=== PATIENT | male | born 1970 | race African-American/Black ===

== ENCOUNTER 2017-01-06 00:02 | Emergency (ER) | payer OTHER ==
[~2017-01-06] VITALS: Ht 177.8 cm; Wt 86.2 kg
[~2017-01-06 00:02] MED LIST: AMLO10TA2 PO; ASPI325T4 PO; ATOR20TA PO; ATOR20TA58 PO; CELE200C PO; GLYB5TAB3 PO; HYDR12.58 PO; ISOS20TA2 PO; LISI1TAB5 PO; LISI1TAB7 PO; LISI30TA4 PO; MECL25TA3 PO; OLOP5DRO EACHEYE; PANT40TA3 PO; SUMA50TA3 PO; [UNRECOGNIZED DRUG - OTHER]; diabetic medication
[2017-01-06 00:44] LABS: BASO # 0.1 x10^3/uL (0.0-0.2); BASO % 1 % (0-3); EOS % 2 % (0-3); HEMATOCRIT 43.3 % (39.0-53.0); HEMOGLOBIN 14.7 g/dL (13.0-17.5); LYMPH # 2.7 x10^3/uL (1.0-4.8); LYMPH % 40 % (24-48); MEAN CORPUSCULAR HEMOGLOBIN 30 pg (25-35); MEAN CORPUSCULAR HGB CONC 34 g/dL (31-37); MEAN CORPUSCULAR VOLUME 88 fL (79-100); MONO % 11 % (0-9); NEUT % 46 % (31-73); PLATELET COUNT 232 x10^3/uL (140-400); RED BLOOD COUNT 4.94 x10^6/uL (4.30-5.70); RED CELL DISTRIBUTION WIDTH 14.1 % (11.5-14.5); WHITE BLOOD COUNT 6.9 x10^3/uL (4.0-11.0)
[2017-01-06] MEDS ORDERED: fentaNYL PF VIAL 100 MCG/2 ML VIAL IV PRN (00:45)
[2017-01-06 00:55] LABS: CALCIUM 8.9 mg/dL (8.5-10.1); CREATININE 0.9 mg/dL (0.7-1.3); GFR 110.9; POTASSIUM 3.7 mmol/L (3.5-5.1); PROTHROMBIN TIME PATIENT 12.7 SEC (11.7-14.0)
[2017-01-06 01:01] LABS: ALBUMIN 3.4 g/dL (3.4-5.0); ALBUMIN/GLOBULIN RATIO 0.9 (1.0-1.7); TOTAL BILIRUBIN 0.3 mg/dL (0.2-1.0); TOTAL PROTEIN 7.3 g/dL (6.4-8.2)
[2017-01-06 01:04] LABS: BILIRUBIN,URINE NEGATIVE (NEG); GLUCOSE,URINE 500 mg/dL (NEG); NITRITE,URINE NEGATIVE (NEG); PROTEIN,URINE NEGATIVE (NEG-TRACE); UROBILINOGEN,URINE 0.2 mg/dL (0.2 mg/dL)
[2017-01-06 01:08] LABS: BARBITURATES NEG (NEG); BENZODIAZEPINES NEG (NEG); CANNABINOIDS NEG (NEG); COCAINE NEG (NEG); METHADONE NEG (NEG); OPIATES NEG (NEG); PHENCYCLIDINE NEG (NEG)
[2017-01-06 01:11] LABS: BACTERIA,URINE 0 /HPF (0-FEW); RBC,URINE 0 /HPF (0-2); WBC,URINE 0 /HPF (0-4)
--- NOTE | 2017-01-06 01:40 | RAD ---
PROCEDURE CT head without contrast. CT cervical spine without contrast. HISTORY Headache, neck pain, syncope TECHNIQUE Exposure: One or more of the following individualized dose reduction techniques were utilized for this exam: 1. Automated exposure control. 2. Adjustment of the mA and/or kV according to patient size. 3. Use of iterative reconstruction technique. [address] imaging skullbase to vertex. Helical noncontrast CT imaging cervical spine. 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 No new infarct. No intracranial hemorrhage, mass or hydrocephalus orbits, paranasal sinuses, mastoids and bones are unremarkable. CT cervical spine: Craniocervical junction intact cervical vertebral body height and alignment no fracture of the cervical spine. Imaged lung apices and paraspinal tissues are unremarkable IMPRESSION CT Head: No acute intracranial CT abnormality. Chronic left cerebellum infarct is stable. CT cervical spine: No acute osseous injury of the cervical spine. Electronically signed by: Justice Kapoor MD (January 06, 2017 01:37:55)
--- NOTE | 2017-01-06 01:52 | ED.ADGEN ---
Past Medical History Past Medical History: Diabetes-Type II, High Cholesterol, Hypertension Past Surgical History: No Surgical History Additional Past Surgical Histo: POOR HISTORIAN Alcohol Use: None Drug Use: None Adult General Chief Complaint Chief Complaint: FLU SYMPTOM HPI HPI Patient is a 46 year old man, history of type 2 diabetes mellitus, hypertension , hyperlipidemia, who presents the emergency department with multiple complaints. Patient states that he began experiencing back pain from his upper back and his lower back radiating down into bilateral legs 4 days ago. Patient states that he had an episode of dizziness and lightheadedness that occurred 2 days ago, that caused him to fall, with a positive loss of consciousness. Patient may have had similar symptoms previously, but apparently has not had these evaluated by a physician previously. Patient also experienced cough over these last 4 days, nonproductive. Body aches. Patient states that he was not have any chest pain during the time of this episode, although he has intermittent chest pain and intermittent shortness of breath. He has not taken medication at home for the discomfort. He is also complaining of abdominal pain that is intermittent, not associated with nausea or vomiting, denies any focal weakness in this or tingling, is complaining of generalized weakness and generalized malaise. No sick contacts or exposures, no recent travel or surgery , no cough, no urinary complaints, possible subjective fevers, no chills. Patient is a limited historian, primarily Faroese speaking, translation is assisted by family at bedside at patient's request. Review of Systems Review of Systems Constitutional: Denies fever or chills. [] Eyes: Denies change in visual acuity. [] HENT: Denies nasal congestion or sore throat. [] Respiratory: Cough, no shortness of breath. Cardiovascular: Intermittent chest pain, no edema. GI: Denies nausea, vomiting, bloody stools or diarrhea. Occasional abdominal pain. : Denies dysuria. [] Musculoskeletal: Denies back pain or joint pain. [] Integument: Denies rash. [] Neurologic: Denies headache, focal weakness or sensory changes. [] Endocrine: Denies polyuria or polydipsia. [] Lymphatic: Denies swollen glands. [] Psychiatric: Denies depression or anxiety. [] Current Medications Current Medications Current Medications Medications (Trade) Dose Ordered Sig/Rick Start Time Stop Time Status Last Admin Dose Admin Fentanyl Citrate (Fentanyl 2ml Vial) 25 mcg PRN Q15MIN PRN 01/06/17 00:45 01/06/17 03:04 DC 01/06/17 00:59 25 MCG Info (Do NOT chart on this entry -- for MONITORING) 1 each PRN DAILY PRN 01/06/17 02:30 01/06/17 03:04 DC Iohexol (Omnipaque 350 Mg/ml) 90 ml 1X ONCE 01/06/17 02:30 01/06/17 02:31 DC Allergies Allergies Allergies Coded Allergies Type Severity Reaction Last Updated Verified No Known Drug Allergies 12/18/13 No Physical Exam Physical Exam Constitutional: Well developed, well nourished, no acute distress, non-toxic appearance. [] HENT: Normocephalic, atraumatic, bilateral external ears normal, oropharynx moist, no oral exudates, nose normal. [] Eyes: PERRLA, EOMI, conjunctiva normal, no discharge. [] Neck: Normal range of motion, patient complaining of tenderness to palpation throughout the entire neck extending into bilateral trapezii, supple, no stridor. [] Cardiovascular:Heart rate regular rhythm, no murmur, S1, S2, rubs or gallops. [] Lungs & Thorax: Bilateral breath sounds clear to auscultation, no wheezing, rhonchi, rales. Patient with tenderness palpation across the posterior thoracic paraspinal region, bilaterally. [] Abdomen: Bowel sounds normal, soft, no tenderness, no rebound, rigidity, no guarding, no masses, no pulsatile masses. [] Skin: Warm, dry, no erythema, no rash. [] Back: No midline tenderness, no sepsis or deformities, patient with bilateral paraspinal tenderness extending into down into the buttock bilaterally, no lesions or injuries identified, no CVA tenderness. [] Extremities: No tenderness, no cyanosis, no clubbing, ROM intact, no edema. [] Neurologic: Alert and oriented X 3, normal motor function, normal sensory function, no focal deficits noted. [] Psychologic: Affect normal, judgement normal, mood normal. [] Current Patient Data Vital Signs Vital Signs Date Time Temp Pulse Resp B/P (MAP) Pulse Ox O2 Delivery O2 Flow Rate FiO2 01/06/17 00:59 20 01/06/17 00:34 97.7 83 184/107 (132) 96 Room Air 97.7 Lab Values Laboratory Tests Test 01/06/17 00:35 01/06/17 00:54 White Blood Count 6.9 x10^3/uL (4.0-11.0) Red Blood Count 4.94 x10^6/uL (4.30-5.70) Hemoglobin 14.7 g/dL (13.0-17.5) Hematocrit 43.3 % (39.0-53.0) Mean Corpuscular Volume 88 fL (79-100) Mean Corpuscular Hemoglobin 30 pg (25-35) Mean Corpuscular Hemoglobin Concent 34 g/dL (31-37) Red Cell Distribution Width 14.1 % (11.5-14.5) Platelet Count 232 x10^3/uL (140-400) Neutrophils (%) (Auto) 46 % (31-73) Lymphocytes (%) (Auto) 40 % (24-48) Monocytes (%) (Auto) 11 % (0-9) H Eosinophils (%) (Auto) 2 % (0-3) Basophils (%) (Auto) 1 % (0-3) Neutrophils # (Auto) 3.2 x10^3uL (1.8-7.7) Lymphocytes # (Auto) 2.7 x10^3/uL (1.0-4.8) Monocytes # (Auto) 0.7 x10^3/uL (0.0-1.1) Eosinophils # (Auto) 0.1 x10^3/uL (0.0-0.7) Basophils # (Auto) 0.1 x10^3/uL (0.0-0.2) Sodium Level 139 mmol/L (136-145) Potassium Level 3.7 mmol/L (3.5-5.1) Chloride Level 102 mmol/L (98-107) Carbon Dioxide Level 29 mmol/L (21-32) Anion Gap 8 (6-14) Blood Urea Nitrogen 14 mg/dL (8-26) Creatinine 0.9 mg/dL (0.7-1.3) Estimated GFR (Cockcroft-Gault) 110.9 BUN/Creatinine Ratio 16 (6-20) Glucose Level 258 mg/dL (70-99) H Calcium Level 8.9 mg/dL (8.5-10.1) Total Bilirubin 0.3 mg/dL (0.2-1.0) Aspartate Amino Transferase (AST) 16 U/L (15-37) Alanine Aminotransferase (ALT) 20 U/L (16-63) Alkaline Phosphatase 61 U/L (46-116) Troponin I Quantitative < 0.017 ng/mL (0.000-0.055) BO-Idz-O-Type Natriuretic Peptide 55 pg/mL (0-124) Total Protein 7.3 g/dL (6.4-8.2) Albumin 3.4 g/dL (3.4-5.0) Albumin/Globulin Ratio 0.9 (1.0-1.7) L Urine Collection Type Unknown Urine Color Yellow Urine Clarity Clear Urine pH 6.0 Urine Specific [place] <=1.005 Urine Protein Negative mg/dL (NEG-TRACE) Urine Glucose (UA) 500 mg/dL (NEG) Urine Ketones (Stick) Negative mg/dL (NEG) Urine Blood Negative (NEG) Urine Nitrite Negative (NEG) Urine Bilirubin Negative (NEG) Urine Urobilinogen Dipstick 0.2 mg/dL (0.2 mg/dL) Urine Leukocyte Esterase Negative (NEG) Urine RBC 0 /HPF (0-2) Urine WBC 0 /HPF (0-4) Urine Squamous Epithelial Cells None /LPF Urine Bacteria 0 /HPF (0-FEW) Urine Opiates Screen Neg (NEG) Urine Methadone Screen Neg (NEG) Urine Barbiturates Neg (NEG) Urine Phencyclidine Screen Neg (NEG) Urine Amphetamine/Methamphetamine Neg (NEG) Urine Benzodiazepines Screen Neg (NEG) Urine Cocaine Screen Neg (NEG) Urine Cannabinoids Screen Neg (NEG) Urine Ethyl Alcohol Neg (NEG) Laboratory Tests 01/06/17 00:35 Laboratory Tests 01/06/17 00:35 EKG EKG EC: Sinus rhythm, heart rate 80 beats minute, left axis deviation, QTC of 434, SC of 224, QRS of 78, ST elevation of 1 mm noted in V2, no other elevations or depressions identified, abnormal ECG, does not meet STEMI criteria. As interpreted by me. [] Radiology/Procedures Radiology/Procedures [][facility] [address] [place], [place] [id number] IMAGING REPORT Signed PATIENT: NITA RUFF ACCOUNT: [id number] : 1970 LOCATION: ER AGE: 46 SEX: M EXAM STATUS: REG ER ORD. PHYSICIAN: ADEEL MARRERO DO REASON: Syncope/GARCIA/neck pain PROCEDURE: CT HEAD AND CERVICAL SPINE WO PROCEDURE CT head without contrast. CT cervical spine without contrast. HISTORY Headache, neck pain, syncope TECHNIQUE Exposure: One or more of the following individualized dose reduction techniques were utilized for this exam: 1. Automated exposure control. 2. Adjustment of the mA and/or kV according to patient size. 3. Use of iterative reconstruction technique. [address] imaging skullbase to vertex. Helical noncontrast CT imaging cervical spine. 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 No new infarct. No intracranial hemorrhage, mass or hydrocephalus orbits, paranasal sinuses, mastoids and bones are unremarkable. CT cervical spine: Craniocervical junction intact cervical vertebral body height and alignment no fracture of the cervical spine. Imaged lung apices and paraspinal tissues are unremarkable IMPRESSION CT Head: No acute intracranial CT abnormality. Chronic left cerebellum infarct is stable. CT cervical spine: No acute osseous injury of the cervical spine. Electronically signed by: Carlos Kapoor MD (January 06, 2017 01:37:55) DICTATED and SIGNED BY: CARLOS KAPOOR MD DATE: 01/06/17 0137 CC: LEON ALFAROP-C; ADEEL MARRERO DO ~ Course & Med Decision Making Course & Med Decision Making Pertinent Labs and Imaging studies reviewed. (See chart for details) Patient with multiple complaints, complaining of syncope, intermittent chest and abdominal pain, noted be hypertensive in the emergency department, states he is taking his medications as directed. Chest x-ray reveals possible mild widening of mediastinum, although is likely positional, the patient's complaints of pain and syncope, CT of the chest and pelvis ordered to assess great vessels or possible dissection or other abnormality. I did discuss this with patient and family at bedside. Patient at this point states that he is ready to leave. Lengthy discussion with patient and daughter at bedside regarding the risks of leaving the emergency department, and the importance of staying for follow-up, including potential morbidity or mortality. Conversation then reiterated with patient via nurse Eunice Friend the leg which line supervisor area. Patient is calm and appropriate in responses, but states that he "doesn't feel like you are doing anything", and reiterates that he wants to eat nonhospital food and, and he has young children at home that he needs to take care of. Risk of morbidity and mortality again impressed upon patient and his daughter at bedside. Patient's also spoken to on the phone by patient's daughter. After discussion, patient did complete AMA paperwork, and exited the the emergency department with his daughter, he states he does have a doctor's appointment for this morning, and he does have all medications at home, he did have his pill bottles with him in the emergency department. Dragon Disclaimer Dragon Disclaimer This electronic medical record was generated, in whole or in part, using a voice recognition dictation system. Departure Impression: Primary Impression: Syncope Disposition: 07 AGAINST MEDICAL ADVICE Admitting Physician: Jessi Tierney Condition: STABLE ADEEL MARRERO DO January 06, 2017 01:52
[2017-01-06] MEDS ORDERED: CONTRAST GIVEN MC PRN (02:30)
[2017-01-06] MEDS ORDERED: IOHEXOL 350 MG/ML 100 ML VIAL. IV ONE (02:30)
[2017-01-06 02:45] VITALS: BP 176/92
--- NOTE | 2017-01-06 08:09 | RAD ---
Indication: Chest pain and cough. Technique: Upright portable chest radiograph was obtained and compared to a study from March 15, 2015. Findings: Allowing for lung volume and portable technique, the lungs are clear. The heart is not enlarged and there is no heart failure. Bony structures are intact. Leads overlie the patient. Impression: No acute thoracic findings.
--- NOTE | 2017-01-06 14:48 | EKG ---
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
== END 2017-01-06 02:45 | disposition left against medical advice (07) ==
LOC: ER 00:02
DX: R55 Syncope and collapse (principal); R10.9 Unspecified abdominal pain; R07.9 Chest pain, unspecified; R53.1 Weakness; E78.00 Pure hypercholesterolemia, unspecified; E11.9 Type 2 diabetes mellitus without complications; I10 Essential (primary) hypertension
CPT/HCPCS: 36415; 70450; 71010; 72125; 80053; 80305; 81001; 83880; 84484; 85027; 85610; 85730; 93005; 96374; 99285; J3010; G0481

== ENCOUNTER 2017-04-16 22:53 | Emergency (ER) | payer OTHER ==
[~2017-04-16] VITALS: Ht 185.4 cm; Wt 86.2 kg
[~2017-04-16 22:53] MED LIST changes: -ASPI325T4 PO; +ASPI325T8 PO
[2017-04-16] MEDS ORDERED: MORPHINE SULFATE 4 MG/ML DISP.SYRIN. IV/SQ PRN (23:30)
[2017-04-16] MEDS ORDERED: 0.9 % SODIUM CHLORIDE 10 ML DISP.SYRIN. IV PRN (23:30)
[2017-04-16] MEDS ORDERED: ONDANSETRON PF 4 MG/2 ML VIAL. IV PRN (23:30)
--- NOTE | 2017-04-16 23:48 | PHYS DOC ---
Past Medical History Past Medical History: Diabetes-Type II, High Cholesterol, Hypertension Past Surgical History: No Surgical History Additional Past Surgical Histo: POOR HISTORIAN Alcohol Use: None Drug Use: None Adult General Chief Complaint Chief Complaint: HYPERTENSION HPI HPI Patient is a 46 year old male who presents with elevated blood pressure. He presents with relatives and friends who can interpret for him. He is from [facility] and is Persian speaking. Through the sand car worker he has noticed his blood pressure increasing yesterday. He had a headache yesterday and today. He states he has not ran out of his blood pressure medication but did not bring it with him and he does not know the name of it. He does go to clinic for care but "it takes a while to get in". He has no chest pain O down pain no vomiting no vision change. No numbness weakness of extremities. No prior records available here. Denies any prior surgeries and does not smoke tobacco. Review of Systems Review of Systems Constitutional: Denies fever or chills Eyes: Denies change in visual acuity, redness, or eye pain HENT: Denies nasal congestion or sore throat Respiratory: Denies cough or shortness of breath Cardiovascular: No chest pain GI: Denies abdominal pain, nausea, vomiting, bloody stools or diarrhea : Denies dysuria or hematuria Musculoskeletal: Denies back pain or joint pain Integument: Denies rash or skin lesions Neurologic: POS headache, Denies focal weakness or sensory changes Current Medications Current Medications Current Medications Medications (Trade) Dose Ordered Sig/Rick Start Time Stop Time Status Last Admin Dose Admin Labetalol HCl (Normodyne) 20 mg 1X ONCE 04/17/17 00:15 04/17/17 00:16 DC Morphine Sulfate 2 mg PRN Q15MIN PRN 04/16/17 23:30 04/17/17 23:29 04/17/17 00:13 2 MG Ondansetron HCl (Zofran) 4 mg PRN Q6HRS PRN 04/16/17 23:30 04/17/17 00:10 4 MG Sodium Chloride (Normal Saline Flush) 10 ml QSHIFT PRN 04/16/17 23:30 Allergies Allergies Allergies Coded Allergies Type Severity Reaction Last Updated Verified No Known Drug Allergies 12/18/13 No Physical Exam Physical Exam Constitutional: Well developed, well nourished, no acute distress, non-toxic appearance. HENT: Normocephalic, atraumatic, bilateral external ears normal, oropharynx moist, no oral exudates, nose normal. Eyes: PERRLA, EOMI, conjunctiva normal, no discharge. Neck: Normal range of motion, no tenderness, supple, no stridor. Cardiovascular:Heart rate regular rhythm, no murmur Lungs & Thorax: Bilateral breath sounds clear to auscultation Abdomen: Bowel sounds normal, soft, no tenderness, no masses, no pulsatile masses. Skin: Warm, dry, no erythema, no rash. Back: No tenderness, no CVA tenderness. Extremities: No tenderness, no cyanosis, no clubbing, ROM intact, no edema. Neurologic: Alert and oriented X 3, normal motor function, normal sensory function, no focal deficits noted. Current Patient Data Vital Signs Vital Signs Date Time Temp Pulse Resp B/P (MAP) Pulse Ox O2 Delivery O2 Flow Rate FiO2 04/17/17 00:13 28 94 Room Air 04/17/17 00:05 86 158/95 04/16/17 23:29 98.7 98.7 Lab Values Laboratory Tests Test 04/16/17 23:52 White Blood Count 5.9 x10^3/uL (4.0-11.0) Red Blood Count 4.77 x10^6/uL (4.30-5.70) Hemoglobin 14.2 g/dL (13.0-17.5) Hematocrit 42.6 % (39.0-53.0) Mean Corpuscular Volume 90 fL (79-100) Mean Corpuscular Hemoglobin 30 pg (25-35) Mean Corpuscular Hemoglobin Concent 33 g/dL (31-37) Red Cell Distribution Width 14.6 % (11.5-14.5) H Platelet Count 194 x10^3/uL (140-400) Neutrophils (%) (Auto) 44 % (31-73) Lymphocytes (%) (Auto) 40 % (24-48) Monocytes (%) (Auto) 12 % (0-9) H Eosinophils (%) (Auto) 3 % (0-3) Basophils (%) (Auto) 1 % (0-3) Neutrophils # (Auto) 2.6 x10^3uL (1.8-7.7) Lymphocytes # (Auto) 2.4 x10^3/uL (1.0-4.8) Monocytes # (Auto) 0.7 x10^3/uL (0.0-1.1) Eosinophils # (Auto) 0.2 x10^3/uL (0.0-0.7) Basophils # (Auto) 0.1 x10^3/uL (0.0-0.2) Sodium Level 138 mmol/L (136-145) Potassium Level 3.6 mmol/L (3.5-5.1) Chloride Level 100 mmol/L (98-107) Carbon Dioxide Level 30 mmol/L (21-32) Anion Gap 8 (6-14) Blood Urea Nitrogen 9 mg/dL (8-26) Creatinine 0.9 mg/dL (0.7-1.3) Estimated GFR (Cockcroft-Gault) 110.9 Glucose Level 353 mg/dL (70-99) H Calcium Level 8.7 mg/dL (8.5-10.1) Total Bilirubin 0.2 mg/dL (0.2-1.0) Direct Bilirubin 0.1 mg/dL (0.0-0.2) Aspartate Amino Transferase (AST) 16 U/L (15-37) Alanine Aminotransferase (ALT) 20 U/L (16-63) Alkaline Phosphatase 65 U/L (46-116) Creatine Kinase 171 U/L (39-308) Creatine Kinase MB (Mass) 0.7 ng/mL (0.0-3.6) Creatine Kinase MB Relative Index 0.4 % (0-4) Troponin I Quantitative < 0.017 ng/mL (0.000-0.055) OC-Sir-B-Type Natriuretic Peptide 167 pg/mL (0-124) H Total Protein 6.7 g/dL (6.4-8.2) Albumin 3.2 g/dL (3.4-5.0) L Laboratory Tests 04/16/17 23:52 Laboratory Tests 04/16/17 23:52 EKG EKG EKG interpreted by myself at 235 2 PM shows normal sinus rhythm, rate of 82, PACs noted, left hi axis, nonspecific ST changes, no ST elevation. Radiology/Procedures Radiology/Procedures CXR interpreted by myself at 2345 PM: normal cardiac silhouette; normal lung nicole. No acute infiltrate [facility] [address] [place] [address] IMAGING REPORT Signed PATIENT: NITA RUFF ACCOUNT: [id number] : 1970 LOCATION: ER AGE: 46 SEX: M EXAM STATUS: REG ER ORD. PHYSICIAN: JOSE L BLEDSOE MD REASON: elev BP w stanton PROCEDURE: CT HEAD WO CONTRAST PQRS Compliance Statement: One or more of the following individualized dose reduction techniques were utilized for this examination: 1. Automated exposure control 2. Adjustment of the mA and/or kV according to patient size 3. Use of iterative reconstruction technique CT HEAD WITHOUT CONTRAST History: HTN, headache. Comparison: CT head without contrast, January 06, 2017. MR brain with and without contrast January 12, 2015. Procedure: Axial images are obtained of the head from the skull base through the vertex without IV contrast. Findings: The ventricles and sulci are normal for the patient's age. No mass-effect, midline shift, hemorrhage, extra-axial fluid collection, or obvious acute infarction is identified. Basilar cisterns are patent. There is stable old infarct of the left superior cerebellum. Bone windows demonstrate no acute calvarial abnormality. Skull vertex incompletely imaged. The visualized paranasal sinuses are clear. Mastoid air cells are well aerated. IMPRESSION: No acute intracranial abnormality. Electronically signed by: Jef Anderson MD (04/16/2017 11:49 PM) [facility] DICTATED and SIGNED BY: JEF ANDERSON MD DATE: 04/16/17 1201 CC: JOSE L BLEDSOE MD; LEON ALFARO [facility] ~ Course & Med Decision Making Course & Med Decision Making Evaluated patient. No evidence acute neurologic compromise. blood pressure came down here without intervention. He received IV Morphine for the headache here. At 0030 AM: Laboratory data is unremarkable. CT head is negative. He shows no evidence of acute cardiac or neurologic compromise. No evidence of end organ damage. He needs to continue his blood pressure medication as prescribed. I have spoken with the patient and/or caregivers. I have explained the patient' s condition, diagnosis and treatment plan based on the information available to me at this time. I have answered the patient's and/or caregiver's questions and addressed any concerns. The patient and/or caregivers have as good an understanding of the patient's diagnosis, condition and treatment plan as can be expected at this point. The patient's condition is stable and appropriate for discharge from the emergency department. The patient will pursue further outpatient evaluation with the primary care physician or other designated or consulting physician as outlined in the discharge instructions. The patient and/or caregivers are agreeable to this plan of care and follow-up instructions have been explained in detail. The patient and/or caregivers have received these instructions in written format and have expressed an understanding of the discharge instructions. The patient and/or caregivers are aware that any significant change in condition or worsening of symptoms should prompt an immediate return to this or the closest emergency department or a call to 911. Scout Disclaimer Dragon Disclaimer This electronic medical record was generated, in whole or in part, using a voice recognition dictation system. Departure Departure Impression: Primary Impression: Accelerated hypertension Additional Impression: Headache Disposition: 01 HOME, SELF-CARE Condition: STABLE Referrals: LEON ALFARO-C (PCP) Patient Instructions: General Headache Without Cause, Managing Your High Blood Pressure Additional Instructions: Call your doctor's office in the morning to have your medication reviewed for your blood pressure. Problem Qualifiers Additional Impression: Headache Headache type: unspecified Headache chronicity pattern: acute headache Intractability: not intractable Qualified Codes: R51 - Headache JOSE L BLEDSOE MD Apr 16, 2017 23:48
--- NOTE | 2017-04-16 23:52 | RAD ---
RS Compliance Statement: One or more of the following individualized dose reduction techniques were utilized for this examination: 1. Automated exposure control 2. Adjustment of the mA and/or kV according to patient size 3. Use of iterative reconstruction technique CT HEAD WITHOUT CONTRAST History: HTN, headache. Comparison: CT head without contrast, January 06, 2017. MR brain with and without contrast January 12, 2015. Procedure: Axial images are obtained of the head from the skull base through the vertex without IV contrast. Findings: The ventricles and sulci are normal for the patient's age. No mass-effect, midline shift, hemorrhage, extra-axial fluid collection, or obvious acute infarction is identified. Basilar cisterns are patent. There is stable old infarct of the left superior cerebellum. Bone windows demonstrate no acute calvarial abnormality. Skull vertex incompletely imaged. The visualized paranasal sinuses are clear. Mastoid air cells are well aerated. IMPRESSION: No acute intracranial abnormality. Electronically signed by: Jef Anderson MD (04/16/2017 11:49 PM) [facility]
[2017-04-17 00:02] LABS: BASO # 0.1 x10^3/uL (0.0-0.2); BASO % 1 % (0-3); EOS % 3 % (0-3); HEMATOCRIT 42.6 % (39.0-53.0); HEMOGLOBIN 14.2 g/dL (13.0-17.5); LYMPH # 2.4 x10^3/uL (1.0-4.8); LYMPH % 40 % (24-48); MEAN CORPUSCULAR HEMOGLOBIN 30 pg (25-35); MEAN CORPUSCULAR HGB CONC 33 g/dL (31-37); MEAN CORPUSCULAR VOLUME 90 fL (79-100); MONO % 12 % (0-9); NEUT % 44 % (31-73); PLATELET COUNT 194 x10^3/uL (140-400); RED BLOOD COUNT 4.77 x10^6/uL (4.30-5.70); RED CELL DISTRIBUTION WIDTH 14.6 % (11.5-14.5); WHITE BLOOD COUNT 5.9 x10^3/uL (4.0-11.0)
[2017-04-17 00:12] LABS: CALCIUM 8.7 mg/dL (8.5-10.1); CREATININE 0.9 mg/dL (0.7-1.3); GFR 110.9; POTASSIUM 3.6 mmol/L (3.5-5.1)
[2017-04-17] MEDS ORDERED: LABETALOL 20 MG/4 ML DISP.SYRIN. IVP ONE (00:15)
[2017-04-17 00:18] LABS: ALBUMIN 3.2 g/dL (3.4-5.0); DIRECT BILIRUBIN 0.1 mg/dL (0.0-0.2); TOTAL BILIRUBIN 0.2 mg/dL (0.2-1.0); TOTAL PROTEIN 6.7 g/dL (6.4-8.2)
[2017-04-17 00:26] LABS: CKMB MASS 0.7 ng/mL (0.0-3.6)
[2017-04-17 01:29] VITALS: BP 137/89
[2017-04-17] MEDS ORDERED: ACETAMINOPHEN 500 MG TABLET PO ONE (02:15)
--- NOTE | 2017-04-17 06:05 | EKG ---
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
--- NOTE | 2017-04-17 07:27 | RAD ---
Exam performed: One view chest. Indication: Elevated blood pressure Date of Service: 04/17/2017 1:25 AM Comparison: New chest from 01/06/17. Single AP upright portable view chest findings: Cardiomediastinal silhouette is within upper limits of normal, however stable. Ectatic tortuous aorta with prominent aortic knob. No acute infiltrates, effusion or pneumothorax is detected. The bony structures are normal. Impression: No acute cardiopulmonary process is detected.
== END 2017-04-17 02:22 | disposition home or self-care (01) ==
LOC: ER 22:53
DX: I10 Essential (primary) hypertension (principal); R51 Headache; E11.9 Type 2 diabetes mellitus without complications; E78.00 Pure hypercholesterolemia, unspecified
CPT/HCPCS: 36415; 70450; 71010; 80048; 80076; 82550; 82553; 83880; 84484; 85025; 93005; 96374; 96375; 99285; J2270; J2405

== ENCOUNTER 2018-01-27 22:36 | Emergency (ER) | payer SELFPAY, OTHER ==
[2018-01-27 23:30] LABS: ADD MAN DIFF? NO
[2018-01-27 23:32] LABS: BASO # 0.1 x10^3/uL (0.0-0.2); BASO % 1 % (0-3); EOS # 0.1 x10^3/uL (0.0-0.7); EOS % 2 % (0-3); HEMATOCRIT 45.3 % (39.0-53.0); HEMOGLOBIN 15.5 g/dL (13.0-17.5); LYMPH # 2.6 x10^3/uL (1.0-4.8); LYMPH % 38 % (24-48); MEAN CORPUSCULAR HEMOGLOBIN 30 pg (25-35); MEAN CORPUSCULAR HGB CONC 34 g/dL (31-37); MEAN CORPUSCULAR VOLUME 88 fL (79-100); MONO # 0.8 x10^3/uL (0.0-1.1); MONO % 12 % (0-9); NEUT # 3.2 x10^3uL (1.8-7.7); NEUT % 47 % (31-73); PLATELET COUNT 277 x10^3/uL (140-400); RED BLOOD COUNT 5.14 x10^6/uL (4.30-5.70); RED CELL DISTRIBUTION WIDTH 14.3 % (11.5-14.5); WHITE BLOOD COUNT 6.9 x10^3/uL (4.0-11.0)
[2018-01-27 23:40] LABS: ANION GAP 4 (6-14); BLOOD UREA NITROGEN 11 mg/dL (8-26); CALCIUM 9.2 mg/dL (8.5-10.1); CARBON DIOXIDE 33 mmol/L (21-32); CHLORIDE 98 mmol/L (98-107); GFR 97.8; GLUCOSE 311 mg/dL (70-99); POTASSIUM 3.5 mmol/L (3.5-5.1); SODIUM 135 mmol/L (136-145)
[2018-01-27] MEDS: diphenhydrAMINE 50 MG/ML VIAL IVP (23:41)
[2018-01-27] MEDS: IV NORMAL SALINE 1000ML BAG 1,000 ML IV (23:41)
[2018-01-27] MEDS: PROCHLORPERAZINE 10 MG/2 ML VIAL. IV (23:41)
[2018-01-27] MEDS: KETOROLAC 30 MG/ML INJ. IV (23:42)
[2018-01-27 23:49] LABS: TROPONINI < 0.017 ng/mL (0.000-0.055)
[2018-01-28] MEDS: HYDROcodone/APAP 5/325MG 1 TAB TABLET PO (00:52)
== END 2018-01-28 01:38 | disposition home or self-care (01) ==
LOC: ER 01-28 01:38
DX: G43.909 Migraine, unspecified, not intractable, without status migrainosus (principal); E11.9 Type 2 diabetes mellitus without complications; I10 Essential (primary) hypertension; E78.00 Pure hypercholesterolemia, unspecified; E78.5 Hyperlipidemia, unspecified
CPT/HCPCS: 36415; 70450; 80048; 84484; 85025; 93005; 96361; 96374; 96375; 99285-25; J0780; J1200; J1885; J7030

== ENCOUNTER 2018-07-30 14:10 | Emergency (ER) | payer OTHER ==
[~2018-07-30] VITALS: Ht 152.4 cm; Wt 95.7 kg
[~2018-07-30 14:10] MED LIST changes: -AMLO10TA2 PO; +AMLO10TA6 PO
[2018-07-30] MEDS: IV NORMAL SALINE 1000ML BAG 1,000 ML IV ONE (15:48)
[2018-07-30] MEDS: ORPHENADRINE CITRATE 60 MG/2 ML VIAL. IV ONE (15:49)
[2018-07-30] MEDS: PROCHLORPERAZINE 10 MG/2 ML VIAL. IV ONE (15:51)
[2018-07-30] MEDS: KETOROLAC 15 MG/ML VIAL. IV ONE (15:52)
--- NOTE | 2018-07-30 15:56 | RAD ---
CT HEAD INDICATION: Headache, hypertension COMPARISON: 01/27/2018 Exposure: One or more of the following individualized dose reduction techniques were utilized for this examination: 1. Automated exposure control 2. Adjustment of the mA and/or kV according to patient size 3. Use of iterative reconstruction technique TECHNIQUE: 5 mm contiguous axial images were obtained from the skull base to the vertex in both bone and soft tissue algorithm. FINDINGS: Mild bilateral periventricular white matter hypodensities likely chronic small vessel ischemic disease. No evidence of acute intracranial hemorrhage. No extra-axial fluid collections. No mass effect or midline shift. Ventricular size is appropriate. Basal cisterns are patent. No fractures identified.Wolfe-white differentiation is preserved.Globes and orbits are within normal limits. Paranasal sinuses and mastoid air cells are clear. IMPRESSION: No acute intracranial findings. Electronically signed by: Mark Spencer MD (07/30/2018 3:52 PM) [place] [id number]
[2018-07-30 16:14] VITALS: BP 173/88
--- NOTE | 2018-07-30 16:19 | PHYS DOC ---
Past Medical History Past Medical History: Diabetes-Type II, High Cholesterol, Hypertension Past Surgical History: No Surgical History Additional Past Surgical Histo: POOR HISTORIAN Alcohol Use: None Drug Use: None Adult General Chief Complaint Chief Complaint: HEADACHE HPI HPI Patient is a 47 year old Somalian male who presents to the ER with complaints of a headache with bilateral eye pain for the last 2 days that has increased in severity over time. PT denies any recent injury, fever, numbness, tingling, weakness, nausea, vomiting, or diarrhea. States that he has a history of migraine headaches and that he tried taking his medication today with no relief of his symptoms. Pt also reports a hx of HTN, states he has been taking his medications as prescribed. He denies any vision changes, floaters, or decrease in vision. He reports that the light is bothering his eyes. Pt speaking Surinamese with son at bedside who translates for patient. Staff Physician Addendum: I was working in the ER during the course of this patient's visit. I was available for consultation as needed, but I was not directly involved in the care of this patient. Review of Systems Review of Systems Constitutional: Denies fever or chills [] Eyes: See HPI GI: Denies nausea, vomiting, or diarrhea [] Integument: denies skin rash or lesions Neurologic: Denies focal weakness or sensory changes, see HPI Complete systems were reviewed and found to be within normal limits, except as documented in this note. Current Medications Current Medications Current Medications Medications (Trade) Dose Ordered Sig/Rick Start Time Stop Time Status Last Admin Dose Admin Ketorolac Tromethamine (Toradol 15mg Vial) 15 mg 1X ONCE 07/30/18 15:15 07/30/18 15:17 DC 07/30/18 15:52 15 MG Orphenadrine Citrate (Norflex) 60 mg 1X ONCE 07/30/18 15:15 07/30/18 15:17 DC 07/30/18 15:49 60 MG Prochlorperazine Edisylate (Compazine) 10 mg 1X ONCE 07/30/18 15:15 07/30/18 15:17 DC 07/30/18 15:51 10 MG Sodium Chloride 1,000 ml @ 1,000 mls/hr 1X ONCE 07/30/18 15:15 07/30/18 16:14 DC 07/30/18 15:48 1,000 MLS/HR Allergies Allergies Allergies Coded Allergies Type Severity Reaction Last Updated Verified No Known Drug Allergies 12/18/13 No Physical Exam Physical Exam Constitutional: Well developed, well nourished, no acute distress, non-toxic appearance. [] HENT: Normocephalic, atraumatic, bilateral external ears normal, oropharynx moist, no oral exudates, nose normal. [] Eyes: PERRLA, conjunctiva normal, no discharge. [] Neck: Normal range of motion, no tenderness, supple, no stridor. [] Cardiovascular:Heart rate regular rhythm, murmur present in LUSB no thrill Lungs & Thorax: Bilateral breath sounds clear to auscultation [] Skin: Warm, dry, no erythema, no rash. [] Extremities: No tenderness, no cyanosis, no clubbing, ROM intact, no edema, no weakness of extremities x4. [] Neurologic: Alert and oriented X 3, normal motor function, normal sensory function, no focal deficits noted. [] Psychologic: Affect normal, judgement normal, mood normal. [] Current Patient Data Vital Signs Vital Signs Date Time Temp Pulse Resp B/P (MAP) Pulse Ox O2 Delivery O2 Flow Rate FiO2 07/30/18 14:40 98.3 67 20 174/104 (127) 97 Room Air 98.3 EKG EKG [] Radiology/Procedures Radiology/Procedures PROCEDURE: CT HEAD WO CONTRAST CT HEAD INDICATION: Headache, hypertension COMPARISON: 01/27/2018 Exposure: One or more of the following individualized dose reduction techniques were utilized for this examination: 1. Automated exposure control 2. Adjustment of the mA and/or kV according to patient size 3. Use of iterative reconstruction technique TECHNIQUE: 5 mm contiguous axial images were obtained from the skull base to the vertex in both bone and soft tissue algorithm. FINDINGS: Mild bilateral periventricular white matter hypodensities likely chronic small vessel ischemic disease. No evidence of acute intracranial hemorrhage. No extra-axial fluid collections. No mass effect or midline shift. Ventricular size is appropriate. Basal cisterns are patent. No fractures identified.Wolfe-white differentiation is preserved.Globes and orbits are within normal limits. Paranasal sinuses and mastoid air cells are clear. IMPRESSION: No acute intracranial findings. [] Course & Med Decision Making Course & Med Decision Making Pertinent Labs and Imaging studies reviewed. (See chart for details) Dx: migraine headache CT negative for any acute findings including intraparenchymal or sub arachnoid hemorrhage. Really very low clinical suspicion for subarachnoid hemorrhage anyway. Not thunderclap PT was given 1L NS, 15 mg of toradol, 60 mg of Norflex, and 10 mg of compazine. Pt reports relief of sx after these medications. Prescription written for fiorcet without codeine. Follow up with PCP about hypertension and continued migraines. Return to ER if sx worsen. Patient's family and Patient verbalized an understanding of home care, medications, follow-up, and return to ED instructions and were in agreement with the plan of care. Staff Physician Addendum: I was working in the ER during the course of this patient's visit. I was available for consultation as needed, but I was not directly involved in the care of this patient. [] Dragon Disclaimer Dragon Disclaimer This electronic medical record was generated, in whole or in part, using a voice recognition dictation system. Departure Departure Impression: Primary Impression: Migraine Additional Impression: Hypertension Disposition: 01 HOME, SELF-CARE Condition: STABLE Referrals: LOEN ALFARO-Williams (PCP) Patient Instructions: Hypertension, [id number], Recurrent Migraine Headache, [id number] Additional Instructions: Fill the prescription and use it as directed. Follow-up with your primary care doctor concerning your high blood pressure and continued ongoing migraines. Return to the emergency room if your symptoms worsen. Scripts Butalb/Acetaminophen/Caffeine ([id number] 50-325-40) 1 Each Tablet 1-2 TAB PO PRN Q4HRS PRN for PAIN MDD 6 tablets for 2 Days, #12 TAB 0 Refills Prov: GABRIELA JOHNSTON ASSISTANT ART DIRECTOR 07/30/18 Problem Qualifiers Primary Impression: Migraine Migraine type: unspecified Status migrainosus presence: without status migrainosus Intractability: not intractable Qualified Codes: G43.909 - Migraine, unspecified, not intractable, without status migrainosus Additional Impression: Hypertension Hypertension type: unspecified Qualified Codes: I10 - Essential (primary) hypertension GABRIELA JOHNSTON APRN Jul 30, 2018 16:18 ROXI SEGAL MD Jul 30, 2018 18:00
[2018-07-30] MEDS ORDERED: BUTA1TAB23 PO (16:40)
== END 2018-07-30 16:50 | disposition home or self-care (01) ==
LOC: ER 14:10
DX: G43.909 Migraine, unspecified, not intractable, without status migrainosus (principal); I10 Essential (primary) hypertension; H92.03 Otalgia, bilateral; E78.00 Pure hypercholesterolemia, unspecified; E11.9 Type 2 diabetes mellitus without complications
CPT/HCPCS: 70450; 96374; 96375; 99284; J0780; J1885; J2360; J7030

== ENCOUNTER 2018-12-06 22:58 | Emergency (ER) | payer OTHER ==
[~2018-12-06] VITALS: Ht 165.1 cm; Wt 79.4 kg
[~2018-12-06 22:58] MED LIST changes: -AMLO10TA6 PO; +AMLO10TA8 PO; +BUTA1TAB23 PO
[2018-12-06 23:07] VITALS: BP 143/83
[2018-12-06] MEDS ORDERED: KETOROLAC 30 MG/ML VIAL. IM ONE (23:15)
[2018-12-06] MEDS ORDERED: ONDANSETRON ODT 4 MG TAB.RAPDIS. PO ONE (23:15)
[2018-12-06] MEDS ORDERED: diphenhydrAMINE 50 MG/ML VIAL IM ONE (23:15)
[2018-12-07] MEDS ORDERED: ACETAMINOPHEN 500 MG TABLET PO ONE (00:30)
--- NOTE | 2018-12-07 00:34 | PHYS DOC ---
Past Medical History Past Medical History: Diabetes-Type II, High Cholesterol, Hypertension Past Surgical History: No Surgical History Additional Past Surgical Histo: POOR HISTORIAN Alcohol Use: None Drug Use: None Adult General Chief Complaint Chief Complaint: HEADACHE HPI HPI Patient is a 48 year old male with history of chronic headaches, migraines well -known to this emergency department who presents with headache starting earlier today. Headache is described as dull throbbing, rated moderate to severe. Reports lights sensitive sensitivity, and nausea. No vomiting. Headache is not sudden onset. It is not the worst of patient's life. Patient states he has NOT taken his migraine medications prior to ED arrival. Arrives by EMS. Additional history obtained from the patient's son.[] Review of Systems Review of Systems Review symptoms as per history of present illness. All other review symptoms are negative. All other systems were reviewed and found to be within normal limits, except as documented in this note. Current Medications Current Medications Current Medications Medications (Trade) Dose Ordered Sig/Rick Start Time Stop Time Status Last Admin Dose Admin Diphenhydramine HCl (Benadryl) 50 mg 1X ONCE 12/06/18 23:15 12/06/18 23:16 DC 12/06/18 23:15 50 MG Ketorolac Tromethamine (Toradol 30mg Vial) 30 mg 1X ONCE 12/06/18 23:15 12/06/18 23:16 DC 12/06/18 23:15 30 MG Ondansetron HCl (Zofran Odt) 4 mg 1X ONCE 12/06/18 23:15 12/06/18 23:16 DC 12/06/18 23:15 4 MG Allergies Allergies Allergies Coded Allergies Type Severity Reaction Last Updated Verified No Known Drug Allergies 12/18/13 No Physical Exam Physical Exam Constitutional: Well developed, well nourished, moderate distress secondary to pain. [] HENT: Normocephalic, atraumatic, bilateral external ears normal, nose normal. [] Eyes: PERRLA, EOMI, conjunctiva normal, no discharge. [] Neck: Normal range of motion, no tenderness, supple, no stridor. [] Cardiovascular:Heart rate regular rhythm, no murmur [] Lungs & Thorax: Bilateral breath sounds clear to auscultation [] Abdomen: Bowel sounds normal, soft, no tenderness. [] Skin: Warm, dry, no erythema, no rash. [] Back: No tenderness. [] Extremities: No tenderness, no cyanosis, no clubbing, ROM intact, no edema. [] Neurologic: Alert and oriented, normal motor function, normal sensory function, no focal deficits noted. [] Current Patient Data Vital Signs Vital Signs Date Time Temp Pulse Resp B/P (MAP) Pulse Ox O2 Delivery O2 Flow Rate FiO2 12/06/18 23:07 98.2 84 16 143/83 (103) 97 Room Air 98.2 EKG EKG [] Radiology/Procedures Radiology/Procedures [] Course & Med Decision Making Course & Med Decision Making Pertinent Labs and Imaging studies reviewed. (See chart for details) [Previous imaging studies performed at this facility with long-standing history of migraines. Blood pressure, vital signs stable. Patient is afebrile. He is neurologically intact. Significant relief with treatment, patient resting comfortably time of discharge. Recommend PCP/neurology follow-up. ] Dragon Disclaimer Dragon Disclaimer This electronic medical record was generated, in whole or in part, using a voice recognition dictation system. Departure Departure Impression: Primary Impression: Migraine Disposition: 01 HOME, SELF-CARE Condition: GOOD Referrals: LEON ALFARO-C (PCP) Patient Instructions: Recurrent Migraine Headache Additional Instructions: Please increase fluids and continue home migraine medications. Follow up with your PCP and/or neurologist for further management of chronic migraines. ADRIANA PAZ DO Dec 07, 2018 00:34
== END 2018-12-07 00:49 | disposition home or self-care (01) ==
LOC: ER 12-07 00:02
DX: G43.909 Migraine, unspecified, not intractable, without status migrainosus (principal); G89.29 Other chronic pain; E11.9 Type 2 diabetes mellitus without complications; E78.00 Pure hypercholesterolemia, unspecified; I10 Essential (primary) hypertension
CPT/HCPCS: 96372; 99284; J1200; J1885; Q0162

== ENCOUNTER 2020-02-02 15:33 | Inpatient (IN) | payer OTHER ==
[~2020-02-02] VITALS: Ht 167.6 cm; Wt 119.0 kg
[2020-02-02] VITALS (7 sets, daily range): BP systolic 91–187; BP diastolic 60–108
[~2020-02-02 15:33] MED LIST changes: +ASPI-630 PO; +HYDR-2145 PO; +INSU100C4 SQ; +INSU100I13 SQ; +ISOS30TA19 PO; +LISI-130 PO; +LISI1TAB20 PO; +LISI1TAB37 PO; -LISI1TAB5 PO; -LISI1TAB7 PO; +MECL-75 PO; -MECL25TA3 PO; +METF10007 PO; +METO50TA6 PO; +NAPR-683 PO; +OMEP20CA16 PO; +ONDA4TAB12 PO; +ONDA4TAB7 PO; -PANT40TA3 PO; +PANT40TA77 PO; +TERA2CAP3 PO; +UNABLE MC; +VENL150T PO
[2020-02-02] MEDS ORDERED: PROPOFOL 100 ML IV PRN (15:45)
[2020-02-02] MEDS ORDERED: ROCURONIUM 50 MG/5 ML VIAL. IV ONE ×2 (15:45→17:15)
[2020-02-02] MEDS ORDERED: IV NORMAL SALINE 1000ML BAG 1,000 ML IV ONE ×2 (15:45→16:15)
[2020-02-02] MEDS ORDERED: ETOMIDATE 20 MG/10 ML VIAL. IV ONE ×2 (15:45→17:15)
--- NOTE | 2020-02-02 15:49 | RAD ---
EXAM: CT Head without IV contrast INDICATION: Reason: altered mental status / Spl. Instructions: / History: TECHNIQUE: Multi-detector row CT images were obtained of the head without the use of IV contrast. All CT scans performed at this facility utilize dose optimization techniques as appropriate to the exam, including the following: Automated exposure control and adjustment of the mA and/or KV according to patient size (this includes techniques or standardized protocols for targeted exams where dose is indication/reason for exam). COMPARISON: Noncontrast head CT of 01/27/2018 FINDINGS: BRAIN PARENCHYMA: Interval occluded infarcts at the left globus pallidus, right caudate body, superior left cerebellum, and right occipital lobe cortical infarcts are noted in the setting of mild generalized parenchymal volume loss. No evidence of acute hemorrhage or mass effect. VENTRICLES & EXTRA-AXIAL SPACES: Ventricles are prominent in proportion to the degree of parenchymal volume loss.. Basilar cisterns are patent. No pathologic extra-axial fluid collection or mass. ORBITS: Orbital contents are unremarkable. SINUSES: Visualized paranasal sinuses and mastoid air cells are clear. OSSEOUS & SOFT TISSUES: Calvarium and skull base are intact. 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 A minor subacute to acute component is possible but would be better assessed on MRI if clinically warranted. No acute intracranial hemorrhage or mass effect. FOR INTERNAL CODING PURPOSES Critical result: Findings discussed with ORTEGA ALEXANDRE at 02/02/2020 3:46 PM. RESULT CODE: (C) Electronically signed by: Halie Webb MD (02/02/2020 3:46 PM) [id number]
[2020-02-02 16:02] LABS: BASO # 0.1 x10^3/uL (0.0-0.2); BASO % 0 % (0-3); EOS % 0 % (0-3); HEMATOCRIT 51.8 % (39.0-53.0); HEMOGLOBIN 17.3 g/dL (13.0-17.5); LYMPH # 0.7 x10^3/uL (1.0-4.8); LYMPH % 5 % (24-48); MEAN CORPUSCULAR HEMOGLOBIN 30 pg (25-35); MEAN CORPUSCULAR HGB CONC 33 g/dL (31-37); MEAN CORPUSCULAR VOLUME 91 fL (79-100); MONO # 1.2 x10^3/uL (0.0-1.1); MONO % 8 % (0-9); NEUT # 12.8 x10^3/uL (1.8-7.7); NEUT % 87 % (31-73); PLATELET COUNT 308 x10^3/uL (140-400); RED CELL DISTRIBUTION WIDTH 14.4 % (11.5-14.5); WHITE BLOOD COUNT 14.7 x10^3/uL (4.0-11.0)
[2020-02-02 16:12] LABS: PROTHROMBIN TIME PATIENT 14.9 SEC (11.7-14.0)
[2020-02-02] MEDS ORDERED: BUTALB/APAP/CAFEIN 50/325/40MG TABLET. PO PRN (16:15)
[2020-02-02] MEDS ORDERED: PROCHLORPERAZINE 10 MG/2 ML VIAL. IVP PRN (16:15)
[2020-02-02] MEDS ORDERED: 0.9 % SODIUM CHLORIDE 10 ML DISP.SYRIN. IV PRN (16:15)
[2020-02-02] MEDS ORDERED: MORPHINE SULFATE 2 MG/ML VIAL. IV PRN ×2 (16:15→16:30)
[2020-02-02] MEDS ORDERED: fentaNYL PF VIAL 100 MCG/2 ML VIAL IV ONE (16:15)
[2020-02-02] MEDS ORDERED: LACTULOSE 20 GM/30 ML SOLUTION. PO PRN (16:15)
[2020-02-02] MEDS ORDERED: PROCHLORPERAZINE 25 MG SUPP.RECT. PR PRN (16:15)
[2020-02-02] MEDS ORDERED: oxyCODONE/APAP 5/325 1 TAB TABLET PO PRN (16:15)
[2020-02-02] MEDS ORDERED: ACETAMINOPHEN 325 MG TABLET. PO PRN (16:15)
[2020-02-02] MEDS ORDERED: ASPIRIN RECTAL 300 MG SUPP. PR ONE (16:15)
[2020-02-02] MEDS ORDERED: fentaNYL PF VIAL 100 MCG/2 ML VIAL IV PRN ×2 (16:30)
[2020-02-02] MEDS ORDERED: AZITHRMYCN 500MG IVPB FOR OMNI 250 ML IV ONE (16:30)
[2020-02-02] MEDS ORDERED: PIPERACILLIN/TAZOBACTAM 4.5 GM in IV NORMAL SALINE 100ML 100 ML IV ONE (16:30)
[2020-02-02] MEDS ORDERED: MORPHINE SULFATE 4 MG/ML VIAL. IV PRN (16:30)
[2020-02-02] MEDS ORDERED: MIDAZOLAM HCL/PF 2 MG/2 ML VIAL. IV PRN (16:30)
[2020-02-02] MEDS ORDERED: DEXAMETHASONE SOD PHOS 4 MG/ML VIAL IVP ONE (16:30)
--- NOTE | 2020-02-02 16:30 | EKG ---
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
[2020-02-02 16:31] LABS: ALBUMIN/GLOBULIN RATIO 0.5 (1.0-1.7); CALCIUM 10.4 mg/dL (8.5-10.1); CREATININE 1.9 mg/dL (0.7-1.3); GFR 46.2; MAGNESIUM 2.7 mg/dL (1.8-2.4); POTASSIUM 4.4 mmol/L (3.5-5.1); TOTAL BILIRUBIN 0.6 mg/dL (0.2-1.0); TOTAL PROTEIN 8.7 g/dL (6.4-8.2)
--- NOTE | 2020-02-02 16:31 | RAD ---
PORTABLE CHEST 1V History: Reason: altered mental status / Spl. Instructions: / History: Comparison: April 16, 2017 Findings: Multifocal pulmonary opacities. Small left pleural effusion. Endotracheal tube with tip at the level of the cynthia directed towards the right mainstem bronchus. Enteric tube with looped within the stomach with tip projecting over the gastric fundus. No pneumothorax. Impression: 1. Endotracheal tube with tip at the level of the cynthia directed towards the right mainstem bronchus. Recommend retraction. 2. Multifocal pulmonary opacities, may represent edema or infection including viral pneumonia. 3. Small left pleural effusion. FOR INTERNAL CODING PURPOSES Critical result: Findings discussed with ORTEGA ALEXANDRE at 02/02/2020 4:27 PM. RESULT CODE: (C) Electronically signed by: Osito Vidal DO (02/02/2020 4:28 PM) [facility]
[2020-02-02] MEDS ORDERED: IV 1/2 NORMAL SALINE 1,000 ML IV SCH ×2 (16:36→18:45)
[2020-02-02] MEDS ORDERED: INSULIN,REGULAR 100 UNIT DRIP 100 ML IV ONE (16:41)
[2020-02-02 16:43] LABS: LACTATE DEHYDROGENASE 631 U/L (85-227)
--- NOTE | 2020-02-02 16:43 | PHYS DOC ---
Past Medical History Past Medical History: CVA, Diabetes-Type II, Hypertension Past Medical History Limited secondary to altered mental status Past Surgical History: No Surgical History Past Surgical History Limited secondary to altered mental status Smoking Status: Never Smoker Alcohol Use: None Drug Use: None Social History Limited secondary to altered mental status General Adult EDM: Chief Complaint: ALTERED MENTAL STATUS HPI: HPI: Patient is a 49 year old male presents via EMS with report of altered mental status. Last know well was 0200. Family reported that he started to become confused throughout the day until EMS was called. EMS reports limited information from family due to language barrier ([place] Citizen). EMS reports upon arrival patient with tachycardia, tachypnea and O2 Sats down to 70's on RA. Patient placed on non-rebreather and only able to increased to 88%. History of present illness limited due to altered mental status. Review of Systems: Review of Systems: Review of systems limited due to altered mental status Current Medications: Current Medications Medications (Trade) Dose Ordered Sig/Rick Start Time Stop Time Status Last Admin Dose Admin Acetaminophen (Tylenol) 650 mg PRN Q6HRS PRN 02/02/20 16:15 UNV Acetaminophen/ Butalbital/ Caffeine (Fioricet) 1 tab Q6HRS PRN 02/02/20 16:15 UNV Amlodipine Besylate (Norvasc) 10 mg HS 02/02/20 21:00 UNV Aspirin (Aspirin Rectal Supp) 300 mg 1X ONCE 02/02/20 16:15 02/02/20 16:17 DC 02/02/20 16:35 300 MG Aspirin (Grover Aspirin) 325 mg DAILY 02/03/20 09:00 UNV Atorvastatin Calcium (Lipitor) 20 mg DAILY 02/03/20 09:00 UNV Azithromycin 250 ml @ 250 mls/hr 1X ONCE 02/02/20 16:30 02/02/20 17:29 Chlorhexidine Gluconate (Peridex) 15 ml BID 02/02/20 21:00 UNV Dexamethasone Sodium Phosphate (Decadron) 10 mg 1X ONCE 02/02/20 16:30 02/02/20 16:33 DC Docusate Sodium (Colace) 100 mg BID 02/02/20 21:00 UNV Etomidate (Amidate) 20 mg 1X ONCE 02/02/20 15:45 02/02/20 15:52 DC Fentanyl Citrate (Fentanyl 2ml Vial) 50 mcg PRN Q1HR PRN 02/02/20 16:30 UNV Heparin Sodium (Porcine) (Heparin Sodium) 5,000 unit Q8HRS 02/02/20 22:00 UNV Hydrochlorothiazide (Hydrodiuril) 25 mg DAILY 02/03/20 09:00 UNV Info (Icu Electrolyte Protocol) 1 ea DAILY 02/03/20 09:00 UNV Insulin Human Regular (HumuLIN R VIAL) 8 unit 1X ONCE 02/02/20 16:45 02/02/20 16:46 Insulin Human Regular 100 unit/ Sodium Chloride 101 ml @ 0 mls/hr CONT PRN PRN 02/02/20 16:45 UNV Isosorbide Mononitrate (Ismo) 20 mg BID 02/02/20 21:00 UNV Lactulose (Lactulose) 20 gm PRN Q12HR PRN 02/02/20 16:15 UNV Lisinopril (Prinivil) 40 mg DAILY 02/03/20 09:00 UNV Metoprolol Tartrate (Lopressor) 50 mg BID 02/02/20 21:00 UNV Midazolam HCl (Versed) 5 mg 1X ONCE 02/02/20 16:45 02/02/20 16:46 02/02/20 16:35 5 MG Morphine Sulfate (Morphine Sulfate) 4 mg PRN Q1HR PRN 02/02/20 16:30 UNV Non-Formulary Medication (Hydrochlorothiazide (Hydrochlorothiazide Tablet)) 25 mg DAILY 02/03/20 09:00 UNV Non-Formulary Medication (Insulin Glargine,Hum.rec.anlog (Lantus Solostar)) 80 unit QHS 02/02/20 21:00 UNV Non-Formulary Medication (Insulin Aspart (Novolog)) 25 unit TIDWMEALS 02/02/20 17:00 UNV Non-Formulary Medication (Isosorbide Dinitrate ) 20 mg DAILY 02/03/20 09:00 UNV Non-Formulary Medication (Meclizine Hcl ) 25 mg PRN TID PRN 02/02/20 16:15 UNV Non-Formulary Medication (Metformin Hcl ) 1,000 mg BIDWMEALS 02/02/20 17:00 UNV Non-Formulary Medication (Olopatadine Hcl (Patanol)) 1 drop BID 02/02/20 21:00 UNV Non-Formulary Medication (Omeprazole ) 20 mg BID 02/02/20 21:00 UNV Non-Formulary Medication (Ondansetron Hcl (Zofran)) 1 tab Q6HRS 02/02/20 18:00 UNV Non-Formulary Medication (Sumatriptan Succinate (Imitrex)) 50 mg PRN BID PRN 02/02/20 16:15 UNV Non-Formulary Medication (Terazosin Hcl ) 2 cap QHS 02/02/20 21:00 UNV Non-Formulary Medication (Venlafaxine Hcl (Venlafaxine Hcl Er)) 1 tab BID 02/02/20 21:00 UNV Oxycodone/ Acetaminophen (Percocet 5/325) 1 tab PRN Q4HRS PRN 02/02/20 16:15 UNV Piperacillin Sod/ Tazobactam Sod 4.5 gm/Sodium Chloride 100 ml @ 200 mls/hr 1X ONCE 02/02/20 16:30 02/02/20 16:59 Prochlorperazine (Compazine) 25 mg PRN Q12HR PRN 02/02/20 16:15 UNV Prochlorperazine Edisylate (Compazine) 5 mg PRN Q6HRS PRN 02/02/20 16:15 UNV Propofol 100 ml @ 0 mls/hr CONT PRN 02/02/20 16:30 Rocuronium Nardin (Zemuron) 50 mg 1X ONCE 02/02/20 15:45 02/02/20 15:52 DC Senna/Docusate Sodium (Senna Plus) 1 tab BID 02/02/20 21:00 UNV Sodium Chloride 1,000 ml @ 500 mls/hr Q2H 02/02/20 16:36 02/02/20 18:35 UNV Sodium Chloride (Normal Saline Flush) 3 ml QSHIFT PRN 02/02/20 16:15 UNV Allergies: Allergies: Allergies Coded Allergies Type Severity Reaction Last Updated Verified No Known Drug Allergies 12/18/13 No Physical Exam: PE: Constitutional: Well developed, well nourished, ill appearing HENT: Normocephalic, atraumatic, oropharynx dry, tissue friable Eyes: PERRL, conjunctiva glassy, no discharge Neck: Normal range of motion, supple Cardiovascular: Heart rate tachycardic, regular rhythm Lungs & Thorax: Increased respiratory effort, tachypnea Abdomen: Soft, no tenderness, no distention Skin: Warm, dry, no rash Extremities: No deformity, no edema Neurologic: GCS 9 (eye 4, verbal 1, motor 4), moves extremities but does not follow commands Psychologic: Unable to obtain, judgment abnormal Current Patient Data: Labs: Laboratory Tests Test 02/02/20 15:45 White Blood Count 14.7 x10^3/uL (4.0-11.0) H Red Blood Count 5.70 x10^6/uL (4.30-5.70) Hemoglobin 17.3 g/dL (13.0-17.5) Hematocrit 51.8 % (39.0-53.0) Mean Corpuscular Volume 91 fL (79-100) Mean Corpuscular Hemoglobin 30 pg (25-35) Mean Corpuscular Hemoglobin Concent 33 g/dL (31-37) Red Cell Distribution Width 14.4 % (11.5-14.5) Platelet Count 308 x10^3/uL (140-400) Neutrophils (%) (Auto) 87 % (31-73) H Lymphocytes (%) (Auto) 5 % (24-48) L Monocytes (%) (Auto) 8 % (0-9) Eosinophils (%) (Auto) 0 % (0-3) Basophils (%) (Auto) 0 % (0-3) Neutrophils # (Auto) 12.8 x10^3/uL (1.8-7.7) H Lymphocytes # (Auto) 0.7 x10^3/uL (1.0-4.8) L Monocytes # (Auto) 1.2 x10^3/uL (0.0-1.1) H Eosinophils # (Auto) 0.0 x10^3/uL (0.0-0.7) Basophils # (Auto) 0.1 x10^3/uL (0.0-0.2) Platelet Estimate Pending Prothrombin Time 14.9 SEC (11.7-14.0) H Prothrombin Time INR 1.2 (0.8-1.1) H Activated Partial Thromboplast Time 20 SEC (24-38) L Sodium Level 147 mmol/L (136-145) H Potassium Level 4.4 mmol/L (3.5-5.1) Chloride Level 102 mmol/L (98-107) Carbon Dioxide Level 10 mmol/L (21-32) *L Anion Gap 35 (6-14) H Blood Urea Nitrogen 35 mg/dL (8-26) H Creatinine 1.9 mg/dL (0.7-1.3) H Estimated GFR (Cockcroft-Gault) 46.2 BUN/Creatinine Ratio 18 (6-20) Glucose Level 649 mg/dL (70-99) *H Calcium Level 10.4 mg/dL (8.5-10.1) H Magnesium Level 2.7 mg/dL (1.8-2.4) H Total Bilirubin 0.6 mg/dL (0.2-1.0) Aspartate Amino Transferase (AST) 30 U/L (15-37) Alanine Aminotransferase (ALT) 17 U/L (16-63) Alkaline Phosphatase 95 U/L (46-116) Ammonia 16 mcmol/L (11-34) Creatine Kinase 293 U/L (39-308) Creatine Kinase MB (Mass) 3.1 ng/mL (0.0-3.6) Creatine Kinase MB Relative Index 1.1 % (0-4) Troponin I Quantitative < 0.017 ng/mL (0.000-0.055) EY-Fwe-T-Type Natriuretic Peptide 314 pg/mL (0-124) H Total Protein 8.7 g/dL (6.4-8.2) H Albumin 3.0 g/dL (3.4-5.0) L Albumin/Globulin Ratio 0.5 (1.0-1.7) L Laboratory Tests 02/02/20 15:45 Laboratory Tests 02/02/20 15:45 Vital Signs: Vital Signs Date Time Temp Pulse Resp B/P (MAP) Pulse Ox O2 Delivery O2 Flow Rate FiO2 02/02/20 16:34 25 95 Ventilator 02/02/20 16:32 80 02/02/20 15:33 98.0 195/108 (137) 15.0 98.0 EKG: EKG: @ 1628 Supraventricular tachycardia at 146bpm, NO ST elevation, Radiology/Procedures: Radiology/Procedures: PROCEDURE: CT CODE STROKE HEAD WO INDICATION: Reason: altered mental status / Spl. Instructions: / History: TECHNIQUE: Multi-detector row CT images were obtained of the head without the use of IV contrast. All CT scans performed at this facility utilize dose optimization techniques as appropriate to the exam, including the following: Automated exposure control and adjustment of the mA and/or KV according to patient size (this includes techniques or standardized protocols for targeted exams where dose is indication/reason for exam). COMPARISON: Noncontrast head CT of 01/27/2018 FINDINGS: BRAIN PARENCHYMA: Interval occluded infarcts at the left globus pallidus, right caudate body, superior left cerebellum, and right occipital lobe cortical infarcts are noted in the setting of mild generalized parenchymal volume loss. No evidence of acute hemorrhage or mass effect. VENTRICLES & EXTRA-AXIAL SPACES: Ventricles are prominent in proportion to the degree of parenchymal volume loss.. Basilar cisterns are patent. No pathologic extra-axial fluid collection or mass. ORBITS: Orbital contents are unremarkable. SINUSES: Visualized paranasal sinuses and mastoid air cells are clear. OSSEOUS & SOFT TISSUES: Calvarium and skull base are intact. 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 A minor subacute to acute component is possible but would be better assessed on MRI if clinically warranted. No acute intracranial hemorrhage or mass effect. FOR INTERNAL CODING PURPOSES Critical result: Findings discussed with ORTEGA ALEXANDRE at 02/02/2020 3:46 PM. RESULT CODE: (C) Electronically signed by: Halie Webb MD (02/02/2020 3:46 PM) [id number] PROCEDURE: PORTABLE CHEST 1V History: Reason: altered mental status / Spl. Instructions: / History: Comparison: April 16, 2017 Findings: Multifocal pulmonary opacities. Small left pleural effusion. Endotracheal tube with tip at the level of the cynthia directed towards the right mainstem bronchus. Enteric tube with looped within the stomach with tip projecting over the gastric fundus. No pneumothorax. Impression: 1. Endotracheal tube with tip at the level of the cynthia directed towards the right mainstem bronchus. Recommend retraction. 2. Multifocal pulmonary opacities, may represent edema or infection including viral pneumonia. 3. Small left pleural effusion. FOR INTERNAL CODING PURPOSES Critical result: Findings discussed with ORTEGA ALEXANDRE at 02/02/2020 4:27 PM. RESULT CODE: (C) PROCEDURE: CHEST AP ONLY History: Reason: s/p ETT adjustment . Instructions: / History: Comparison: February 02, 2020 Findings: Interval retraction of endotracheal tube with tip 4 cm above the cynthia. Diffuse interstitial and alveolar opacities, unchanged allowing lower lung volumes. Small left pleural effusion. No pneumothorax. Unchanged heart size. Stable enteric tube. Impression: 1. Interval retraction of endotracheal tube. 2. Diffuse interstitial and alveolar opacities, similar compared to prior. Electronically signed by: Osito Vidal DO (02/02/2020 5:57 PM) [facility] Course & Med Decision Making: Course & Med Decision Making Pertinent Labs and Imaging studies reviewed. (See chart for details) Patient presents with altered mental status with last known well at 0200. EMS without further information as difficult to obtain information from family due to language barrier. Patient also with hypoxia down to 70s on RA and only improved to 88% on NRB. CODE Stroke called in route. Patient with immediate CT head. CT without hemorrhage but noted some new areas of chronic vs subacute infarct. GCS 9 upon arrival. Concern for possible COVID PUI and therefore precautions in place including patient to go to negative pressure room upon arrival. Increased work of breathing and continued to be hypoxic. Intubation performed with successful placement of 8.0 cuffed ETT. Of note: mucous membranes dry with food remnants noted in oropharynx. Upon suctioning, oropharyngeal mucosal surface friable and with scant bleeding as seen on Glidescope during placement of ETT. CXR obtained with finding of low riding ETT and concern for pneumonia. ETT adjusted and repeat CXR obtained with good positioning. IVF hydration initiated. Labs obtained and posted to chart. Patient with metabolic acidosis with elevated blood sugar consistent for DKA. IVF hydration continued and DKA insulin SQ bolus and gtt initiated. Lactic acid also elevated likely from dehydration but given concern for additional infectious etiology, empiric antibiotics provided including Zosyn and Azithromycin. Prior to knowledge of elevated blood sugar and knowledge of concern for COVID, a 1 time dose of Dexamethasone was provided. Acute renal insufficiency also noted. CT angio head/neck not performed as metabolic encephalopathy more likely and clot retrieval less likely given last known well. ASA suppository provided. Patient requiring ICU admission for further evaluation and treatment. Discussed with Dr. Felix (hospitalist) who is in agreement with admission. Scout Disclaimer: Scout Disclaimer: This electronic medical record was generated, in whole or in part, using a voice recognition dictation system. Departure Departure Impression: Primary Impression: Acute metabolic encephalopathy Additional Impressions: DKA (diabetic ketoacidoses) Qualified Codes: E13.11 - Other specified diabetes mellitus with ketoacidosis with coma Acute renal insufficiency Respiratory failure with hypoxia Qualified Codes: J96.01 - Acute respiratory failure with hypoxia Suspected 2019 novel coronavirus infection Pneumonia Qualified Codes: J18.9 - Pneumonia, unspecified organism Disposition: ADMITTED INPATIENT Admitting Physician: MELVIN Ramirez) Condition: CRITICAL Referrals: PUJA STEELE MD (PCP) Justicifation of Admission Dx: Justifications for Admission: Justification of Admission Dx: Yes Respiratory Failure: Severe Resp Distress Comminuty Aquired Pneumonia: Hemodynamic Instability Sepsis: Altered Mental Status Altered Mental Status: Altered Mental Status DKA: DKA Intubation Intubation : Intubation Method: orotracheal Tube Size (cm): 8.0 Breath Sounds after Intubation: equal Intubation Complications: no complications Post Intubation Xray: Yes Progress Emergent consent utilized. RSI performed with use of 20mg of Etomidate and 50mg of Rocuronium. Glidescope utilized to successful placement of cuffed 8.0 ETT which was 26cm at teeth. Good color change, fogging of tube, and improvement of O2 sats. Patient tolerated procedure. Some bleeding encountered during ETT placement as below. Of note during glidescope evaluation oropharynx was extremely dry and there was moderate amount of old food remnants in oropharnx. Suctioning was performed with Y[place]auer prior to placement of ETT with some bleeding was evident due to friability of tissue. CXR obtained which was low riding near cynthia. ETT retraced to 24cm at teeth with interval improvement of positioning on repeat CXR. Of note: intubation performed with COVID precautions including negative pressure room, full PPE, and PAPR COVID-19 Assessment: COVID-19 Patient Risks: Age 65 or older: No Sign of co-morbidity: Yes Exp to person + for COVID: No Exp to PUI: Yes Travel from affected area: No Lower respiratory symptoms: Yes Fever: No PPE Use: Full PPE with N95 mask or PAPR: Yes (PAPR) Critical Care Time Critical care time was [45] minutes exclusive of procedures. ORTEGA ALEXANDRE DO Feb 02, 2020 16:43
[2020-02-02] MEDS ORDERED: MIDAZOLAM HCL/PF 5 MG/5 ML VIAL. IV ONE (16:45)
[2020-02-02] MEDS ORDERED: INSULIN REGULAR 100 UNIT/ML 3ML VIAL. SQ ONE (16:45)
[2020-02-02 16:48] LABS: BASE EXCESS COOX -21 mmol/L (-3-3); HCO3 COOX 9 mmol/L (21-28); METHEMOGLOBIN 0.5 % (0.0-1.9); OXYHEMOGLOBIN 95.1 %; PCO2 COOX 37 mmHg (35-46); PO2 COOX 118 mmHg (75-108); SAT O2 COOX 96 % (92-99)
[2020-02-02] MEDS: INSULIN REGULAR VIAL 100 UNIT in IV NORMAL SALINE 100ML 100 ML IV PRN (16:51)
[2020-02-02] MEDS ORDERED: NON FORMULARY ITEM (Insulin Aspart (Novolog) 25 UNIT) SQ SCH (17:00)
[2020-02-02 17:03] LABS: SALIC 6.6 mg/dL (2.8-20.0)
[2020-02-02 17:04] LABS: ACETAMIN < 2 mcg/ml (10-30); ETHANOL < 10 mg/dL (0-10)
[2020-02-02 17:08] LABS: % ATYL 1 % (0-0); % BANDS 9 % (0-9); % LYMPHS 5 % (24-48); % METAS 1 % (0-0); % MONOS 5 % (0-10); % SEGS 79 % (35-66); PLT ESTIMATE ADEQUATE (ADEQUATE)
[2020-02-02] MEDS ORDERED: MECLIZINE HCL 12.5 MG TABLET. PO PRN (17:45)
[2020-02-02] MEDS ORDERED: ONDANSETRON ODT 4 MG TAB.RAPDIS. PO PRN (17:45)
--- NOTE | 2020-02-02 17:52 | PDOC1 ---
History and Physical Date of Admission Date of Admission 02/02/2020 Identification/Chief Complaint Chief Complaint Encephalopathy Source Source: Chart review, Patient History of Present Illness History of Present Illness Patient is a 49 year old male with past medical history of CVA and last admission late in 2019 for acute lacunar infarct who was in his usual state of health until this morning when EMs services were called to his household. Patient was reported to be obtund and he was transported to the ER for evaluation. History is from review of chart and report from ER physician, patient is currently intubated and sedated. Patient has a past medical history of diabetes and hypertension as well, unclear if he has had dietary transgression or non adherence to his medications. Patient was found to be severely dehydrated, and he was not able to maintain his airway due to his encephalopathy. Work up has revealed severe electrolyte disturbances, metabolic distrubances, DKA and renal failure. He will be admitted to the ICU and will be tested for COVID 19 given results of his x ray, unclear if he has had sick contacts. Past Medical History Cardiovascular: CAD, HTN CENTRAL NERVOUS SYSTEM: CVA, Periperal neuropathy Rheumatologic: Fibromyalgia Endocrine: Diabetes Past Surgical History Past Surgical History: No pertinent history Family History Family History: No Significant, Family History Unknown Social History ALCOHOL: none Drugs: None Current Problem List Problem List Problems Medical Problems: (1) Acute metabolic encephalopathy Status: Acute (2) Acute renal insufficiency Status: Acute (3) DKA (diabetic ketoacidoses) Status: Acute (4) Pneumonia Status: Acute (5) Respiratory failure with hypoxia Status: Acute (6) Suspected 2019 novel coronavirus infection Status: Acute Current Medications Current Medications Current Medications Medications (Trade) Dose Ordered Sig/Rick Start Time Stop Time Status Last Admin Dose Admin Acetaminophen (Tylenol) 650 mg PRN Q6HRS PRN 02/02/20 16:15 Acetaminophen/ Butalbital/ Caffeine (Fioricet) 1 tab PRN Q6HRS PRN 02/02/20 16:15 Amlodipine Besylate (Norvasc) 10 mg HS 02/02/20 21:00 Aspirin (Aspirin Rectal Supp) 300 mg 1X ONCE 02/02/20 16:15 02/02/20 16:17 DC 02/02/20 16:35 300 MG Aspirin (Grover Aspirin) 325 mg DAILY 02/03/20 09:00 Atorvastatin Calcium (Lipitor) 20 mg DAILY 02/03/20 09:00 UNV Azithromycin 250 ml @ 250 mls/hr 1X ONCE 02/02/20 16:30 02/02/20 17:29 Chlorhexidine Gluconate (Peridex) 15 ml BID 02/02/20 21:00 UNV Dexamethasone Sodium Phosphate (Decadron) 10 mg 1X ONCE 02/02/20 16:30 02/02/20 16:33 DC 02/02/20 16:54 10 MG Docusate Sodium (Colace) 100 mg BID 02/02/20 21:00 Etomidate (Amidate) 20 mg 1X ONCE 02/02/20 17:15 02/02/20 17:22 DC Fentanyl Citrate (Fentanyl 2ml Vial) 50 mcg PRN Q1HR PRN 02/02/20 16:30 Heparin Sodium (Porcine) (Heparin Sodium) 5,000 unit Q8HRS 02/02/20 22:00 Hydrochlorothiazide (Hydrodiuril) 25 mg DAILY 02/03/20 09:00 UNV Info (Icu Electrolyte Protocol) 1 ea DAILY 02/03/20 09:00 Insulin Human Regular 100 ml @ As Directed STK-MED ONCE 02/02/20 16:41 02/02/20 16:41 DC Insulin Human Regular (HumuLIN R VIAL) 8 unit 1X ONCE 02/02/20 16:45 02/02/20 16:46 DC 02/02/20 16:51 8 UNIT Insulin Human Regular 100 unit/ Sodium Chloride 101 ml @ 0 mls/hr CONT PRN PRN 02/02/20 16:45 02/02/20 16:51 11.8 MLS/HR Isosorbide Mononitrate (Ismo) 20 mg BID 02/02/20 21:00 UNV Lactulose (Lactulose) 20 gm PRN Q12HR PRN 02/02/20 16:15 Lisinopril (Prinivil) 40 mg DAILY 02/03/20 09:00 UNV Metformin HCl (Glucophage) 1,000 mg BIDWMEALS 02/02/20 17:00 Metoprolol Tartrate (Lopressor) 50 mg BID 02/02/20 21:00 UNV Midazolam HCl (Versed) 5 mg 1X ONCE 02/02/20 16:45 02/02/20 16:46 DC 02/02/20 16:35 5 MG Morphine Sulfate (Morphine Sulfate) 4 mg PRN Q1HR PRN 02/02/20 16:30 Non-Formulary Medication (Hydrochlorothiazide (Hydrochlorothiazide Tablet)) 25 mg DAILY 02/03/20 09:00 UNV Non-Formulary Medication (Insulin Glargine,Hum.rec.anlog (Lantus Solostar)) 80 unit QHS 02/02/20 21:00 UNV Non-Formulary Medication (Insulin Aspart (Novolog)) 25 unit TIDWMEALS 02/02/20 17:00 UNV Non-Formulary Medication (Isosorbide Dinitrate ) 20 mg DAILY 02/03/20 09:00 UNV Non-Formulary Medication (Meclizine Hcl ) 25 mg PRN TID PRN 02/02/20 16:15 UNV Non-Formulary Medication (Olopatadine Hcl (Patanol)) 1 drop BID 02/02/20 21:00 UNV Non-Formulary Medication (Omeprazole ) 20 mg BID 02/02/20 21:00 UNV Non-Formulary Medication (Ondansetron Hcl (Zofran)) 1 tab Q6HRS 02/02/20 18:00 UNV Non-Formulary Medication (Sumatriptan Succinate (Imitrex)) 50 mg PRN BID PRN 02/02/20 16:15 UNV Non-Formulary Medication (Terazosin Hcl ) 2 cap QHS 02/02/20 21:00 UNV Non-Formulary Medication (Venlafaxine Hcl (Venlafaxine Hcl Er)) 1 tab BID 02/02/20 21:00 UNV Oxycodone/ Acetaminophen (Percocet 5/325) 1 tab PRN Q4HRS PRN 02/02/20 16:15 Piperacillin Sod/ Tazobactam Sod 3.375 gm/Sodium Chloride 50 ml @ 100 mls/hr Q6HRS 02/02/20 18:00 UNV Piperacillin Sod/ Tazobactam Sod 4.5 gm/Sodium Chloride 100 ml @ 200 mls/hr 1X ONCE 02/02/20 16:30 02/02/20 16:59 DC 02/02/20 17:03 200 MLS/HR Prochlorperazine (Compazine) 25 mg PRN Q12HR PRN 02/02/20 16:15 Prochlorperazine Edisylate (Compazine) 5 mg PRN Q6HRS PRN 02/02/20 16:15 Propofol 100 ml @ 0 mls/hr CONT PRN 02/02/20 16:30 Rocuronium [place] (Zemuron) 50 mg 1X ONCE 02/02/20 17:15 02/02/20 17:16 UNV Senna/Docusate Sodium (Senna Plus) 1 tab BID 02/02/20 21:00 Sodium Chloride 1,000 ml @ 500 mls/hr Q2H 02/02/20 16:36 02/02/20 18:35 Sodium Chloride (Normal Saline Flush) 3 ml QSHIFT PRN 02/02/20 16:15 Allergies Allergies Allergies Coded Allergies Type Severity Reaction Last Updated Verified No Known Drug Allergies 12/18/13 No ROS Review of System patient is encephalopathc and currently on sedation while being vented Physical Exam Physical Exam GEN.: No apparent distress. Sedated and vented HEENT: Head is normocephalic, atraumatic NECK: Supple. LUNGS: Coarse breath sounds HEART: RRR, S1, S2 present. Peripheral pulses intact ABDOMEN: Soft, non distended. Positive bowel sounds. EXTREMITIES: Without any cyanosis. NEUROLOGIC: Sedated PSYCHIATRIC: uanble to obtain due to acute process . SKIN: No ulcerations Vitals Vitals Vital Signs Date Time Temp Pulse Resp B/P (MAP) Pulse Ox O2 Delivery O2 Flow Rate FiO2 02/02/20 16:34 25 95 Ventilator 02/02/20 16:32 80 02/02/20 15:33 98.0 195/108 (137) 15.0 98.0 Labs Labs Laboratory Tests Test 02/02/20 15:44 02/02/20 15:45 O2 Saturation 96 % (92-99) Arterial Blood pH 7.01 (7.35-7.45) Arterial Blood pCO2 at Patient Temp 37 mmHg (35-46) Arterial Blood pO2 at Patient Temp 118 mmHg (75-108) Arterial Blood HCO3 9 mmol/L (21-28) Arterial Blood Base Excess -21 mmol/L (-3-3) Oxyhemoglobin 95.1 % Methemoglobin 0.5 % (0.0-1.9) Carbon Monoxide, Quantitative 0.2 % (0.0-1.9) FiO2 100% vent White Blood Count 14.7 x10^3/uL (4.0-11.0) Red Blood Count 5.70 x10^6/uL (4.30-5.70) Hemoglobin 17.3 g/dL (13.0-17.5) Hematocrit 51.8 % (39.0-53.0) Mean Corpuscular Volume 91 fL (79-100) Mean Corpuscular Hemoglobin 30 pg (25-35) Mean Corpuscular Hemoglobin Concent 33 g/dL (31-37) Red Cell Distribution Width 14.4 % (11.5-14.5) Platelet Count 308 x10^3/uL (140-400) Neutrophils (%) (Auto) 87 % (31-73) Lymphocytes (%) (Auto) 5 % (24-48) Monocytes (%) (Auto) 8 % (0-9) Eosinophils (%) (Auto) 0 % (0-3) Basophils (%) (Auto) 0 % (0-3) Neutrophils # (Auto) 12.8 x10^3/uL (1.8-7.7) Lymphocytes # (Auto) 0.7 x10^3/uL (1.0-4.8) Monocytes # (Auto) 1.2 x10^3/uL (0.0-1.1) Eosinophils # (Auto) 0.0 x10^3/uL (0.0-0.7) Basophils # (Auto) 0.1 x10^3/uL (0.0-0.2) Segmented Neutrophils % 79 % (35-66) Band Neutrophils % 9 % (0-9) Lymphocytes % 5 % (24-48) Atypical Lymphocytes % (Manual) 1 % (0-0) Monocytes % 5 % (0-10) Metamyelocytes % 1 % (0-0) Platelet Estimate Adequate (ADEQUATE) Prothrombin Time 14.9 SEC (11.7-14.0) Prothromb Time International Ratio 1.2 (0.8-1.1) Activated Partial Thromboplast Time 20 SEC (24-38) Sodium Level 147 mmol/L (136-145) Potassium Level 4.4 mmol/L (3.5-5.1) Chloride Level 102 mmol/L (98-107) Carbon Dioxide Level 10 mmol/L (21-32) Anion Gap 35 (6-14) Blood Urea Nitrogen 35 mg/dL (8-26) Creatinine 1.9 mg/dL (0.7-1.3) Estimated GFR (Cockcroft-Gault) 46.2 BUN/Creatinine Ratio 18 (6-20) Glucose Level 649 mg/dL (70-99) Lactic Acid Level 4.0 mmol/L (0.4-2.0) Calcium Level 10.4 mg/dL (8.5-10.1) Magnesium Level 2.7 mg/dL (1.8-2.4) Ferritin 685 ng/mL (26-388) Total Bilirubin 0.6 mg/dL (0.2-1.0) Aspartate Amino Transf (AST/SGOT) 30 U/L (15-37) Alanine Aminotransferase (ALT/SGPT) 17 U/L (16-63) Alkaline Phosphatase 95 U/L (46-116) Ammonia 16 mcmol/L (11-34) Lactate Dehydrogenase 631 U/L (85-227) Creatine Kinase 293 U/L (39-308) Creatine Kinase MB (Mass) 3.1 ng/mL (0.0-3.6) Creatine Kinase MB Relative Index 1.1 % (0-4) Troponin I Quantitative < 0.017 ng/mL (0.000-0.055) QT-Qbe-M-Type Natriuretic Peptide 314 pg/mL (0-124) Total Protein 8.7 g/dL (6.4-8.2) Albumin 3.0 g/dL (3.4-5.0) Albumin/Globulin Ratio 0.5 (1.0-1.7) Salicylates Level 6.6 mg/dL (2.8-20.0) Salicylate Last Dose Date Unk Salicylate Last Dose Time Unk Acetaminophen Level < 2 mcg/ml (10-30) Acetaminophen Last Dose Date Unk Acetaminophen Last Dose Time Unk Ethyl Alcohol Level < 10 mg/dL (0-10) Laboratory Tests Test 02/02/20 15:44 02/02/20 15:45 O2 Saturation 96 % (92-99) Arterial Blood pH 7.01 (7.35-7.45) Arterial Blood pCO2 at Patient Temp 37 mmHg (35-46) Arterial Blood pO2 at Patient Temp 118 mmHg (75-108) Arterial Blood HCO3 9 mmol/L (21-28) Arterial Blood Base Excess -21 mmol/L (-3-3) Oxyhemoglobin 95.1 % Methemoglobin 0.5 % (0.0-1.9) Carbon Monoxide, Quantitative 0.2 % (0.0-1.9) FiO2 100% vent White Blood Count 14.7 x10^3/uL (4.0-11.0) Red Blood Count 5.70 x10^6/uL (4.30-5.70) Hemoglobin 17.3 g/dL (13.0-17.5) Hematocrit 51.8 % (39.0-53.0) Mean Corpuscular Volume 91 fL (79-100) Mean Corpuscular Hemoglobin 30 pg (25-35) Mean Corpuscular Hemoglobin Concent 33 g/dL (31-37) Red Cell Distribution Width 14.4 % (11.5-14.5) Platelet Count 308 x10^3/uL (140-400) Neutrophils (%) (Auto) 87 % (31-73) Lymphocytes (%) (Auto) 5 % (24-48) Monocytes (%) (Auto) 8 % (0-9) Eosinophils (%) (Auto) 0 % (0-3) Basophils (%) (Auto) 0 % (0-3) Neutrophils # (Auto) 12.8 x10^3/uL (1.8-7.7) Lymphocytes # (Auto) 0.7 x10^3/uL (1.0-4.8) Monocytes # (Auto) 1.2 x10^3/uL (0.0-1.1) Eosinophils # (Auto) 0.0 x10^3/uL (0.0-0.7) Basophils # (Auto) 0.1 x10^3/uL (0.0-0.2) Segmented Neutrophils % 79 % (35-66) Band Neutrophils % 9 % (0-9) Lymphocytes % 5 % (24-48) Atypical Lymphocytes % (Manual) 1 % (0-0) Monocytes % 5 % (0-10) Metamyelocytes % 1 % (0-0) Platelet Estimate Adequate (ADEQUATE) Prothrombin Time 14.9 SEC (11.7-14.0) Prothromb Time International Ratio 1.2 (0.8-1.1) Activated Partial Thromboplast Time 20 SEC (24-38) Sodium Level 147 mmol/L (136-145) Potassium Level 4.4 mmol/L (3.5-5.1) Chloride Level 102 mmol/L (98-107) Carbon Dioxide Level 10 mmol/L (21-32) Anion Gap 35 (6-14) Blood Urea Nitrogen 35 mg/dL (8-26) Creatinine 1.9 mg/dL (0.7-1.3) Estimated GFR (Cockcroft-Gault) 46.2 BUN/Creatinine Ratio 18 (6-20) Glucose Level 649 mg/dL (70-99) Lactic Acid Level 4.0 mmol/L (0.4-2.0) Calcium Level 10.4 mg/dL (8.5-10.1) Magnesium Level 2.7 mg/dL (1.8-2.4) Ferritin 685 ng/mL (26-388) Total Bilirubin 0.6 mg/dL (0.2-1.0) Aspartate Amino Transf (AST/SGOT) 30 U/L (15-37) Alanine Aminotransferase (ALT/SGPT) 17 U/L (16-63) Alkaline Phosphatase 95 U/L (46-116) Ammonia 16 mcmol/L (11-34) Lactate Dehydrogenase 631 U/L (85-227) Creatine Kinase 293 U/L (39-308) Creatine Kinase MB (Mass) 3.1 ng/mL (0.0-3.6) Creatine Kinase MB Relative Index 1.1 % (0-4) Troponin I Quantitative < 0.017 ng/mL (0.000-0.055) JX-Hvp-N-Type Natriuretic Peptide 314 pg/mL (0-124) Total Protein 8.7 g/dL (6.4-8.2) Albumin 3.0 g/dL (3.4-5.0) Albumin/Globulin Ratio 0.5 (1.0-1.7) Salicylates Level 6.6 mg/dL (2.8-20.0) Salicylate Last Dose Date Unk Salicylate Last Dose Time Unk Acetaminophen Level < 2 mcg/ml (10-30) Acetaminophen Last Dose Date Unk Acetaminophen Last Dose Time Unk Ethyl Alcohol Level < 10 mg/dL (0-10) VTE Prophylaxis Ordered VTE Prophylaxis Devices: No VTE Pharmacological Prophylaxi: Yes Assessment/Plan Assessment/Plan Toxic and metabolic encephalopathy Sepsis with pulmonary focus most likely Suspect gram negative organism pneumonia Rule out COVID 19 infection DKA lactic acidosis secondary to a combination of metabolic and infectious process ongoing Acute renal failure, vasomotor etiology most likely Hypernatremia Severe dehydration History of essential hypertension History of CVA Diabetes mellitus type 2 insulin requiring Severe anion gap metabolic acidosis Plan: isolation admit to ICU fluid resuscitation DKA protocol Broad spectrum antibiotics for pneumonic process rule out COVID 19 infection follow BMP every 4 hours. supportive measures vent management, will consult pulmonology for assistance. further recommendations based on clinical course DVT prophylaxis: heparin Justicifation of Admission Dx: Justifications for Admission: Justification of Admission Dx: Yes Sepsis: Altered Mental Status JADEN PEÑALOZA MD Feb 02, 2020 17:52
--- NOTE | 2020-02-02 18:00 | RAD ---
CHEST AP ONLY History: Reason: s/p ETT adjustment 22 / Spl. Instructions: / History: Comparison: February 02, 2020 Findings: Interval retraction of endotracheal tube with tip 4 cm above the cynthia. Diffuse interstitial and alveolar opacities, unchanged allowing lower lung volumes. Small left pleural effusion. No pneumothorax. Unchanged heart size. Stable enteric tube. Impression: 1. Interval retraction of endotracheal tube. 2. Diffuse interstitial and alveolar opacities, similar compared to prior. Electronically signed by: Osito Vidal DO (02/02/2020 5:57 PM) [facility]
--- NOTE | 2020-02-02 18:46 | NUR ---
Patient admitted to room 113 at 1815 from ED on vent. DKA protocol was ordered in ED on glucose stabilizer and insulin drip. Patient unresponsive, sedated on propofol. BCx2 drawn with 2500 ml total fluids infused. Patient received 4.5gm Zosyn and 500mg Azithromycin. Got patient settled in, VS WNL. Night nurse on unit will give handoff report.
[2020-02-02] MEDS: metFORMIN 500 MG TABLET PO SCH (19:30)
[2020-02-02] MEDS: PROPOFOL 100 ML IV PRN (19:42)
[2020-02-02] MEDS ORDERED: PANTOPRAZOLE IV PUSH 40 MG VIAL. IVP ONE (20:15)
[2020-02-02] MEDS ORDERED: LABETALOL 20 MG/4 ML DISP.SYRIN. IVP PRN (20:15)
[2020-02-02 20:34] LABS: ALBUMIN 2.4 g/dL (3.4-5.0); CALCIUM 8.4 mg/dL (8.5-10.1); CREATININE 1.8 mg/dL (0.7-1.3); GFR 49.2; PHOSPHORUS 5.8 mg/dL (2.6-4.7); POTASSIUM 4.1 mmol/L (3.5-5.1)
[2020-02-02] MEDS: CHLORHEXIDINE 0.12% 15 ML MOUTHWASH. MM SCH (21:00)
[2020-02-02] MEDS: SENNOSIDES/DOCUSATE 8.6/50MG TABLET. PO SCH (21:00)
[2020-02-02] MEDS ORDERED: CHLORHEXIDINE 0.12% 15 ML MOUTHWASH. MM SCH (21:00)
[2020-02-02] MEDS ORDERED: INSULIN GLARGINE HUM REC ANLOG 80 UNIT SQ SCH (21:00)
[2020-02-02] MEDS ORDERED: TERAZOSIN HCL PO SCH (21:00)
[2020-02-02] MEDS: DOCUSATE SODIUM 100 MG CAPSULE. PO SCH (21:00)
[2020-02-02] MEDS: IV DEXTROSE 5 %-0.45 % NACL 1,000 ML IV SCH (22:45)
[2020-02-02] MEDS: ATORVASTATIN CALCIUM 20 MG TABLET PO SCH (22:45)
[2020-02-02] MEDS: amLODIPine BESYLATE 10 MG TABLET PO SCH (22:46)
[2020-02-02 22:47] LABS: BASE EXCESS ABG -9 mmol/L (-3-3); HCO3 ABG 17 mmol/L (21-28); PCO2 ABG 39 mmHg (35-46); PO2 ABG 124 mmHg (75-108); SAT O2 ABG 98 % (92-99)
[2020-02-02] MEDS: VENLAFAXINE 75 MG TABLET. PO SCH (22:47)
[2020-02-02] MEDS: METOPROLOL TART IMMED RELEASE 50 MG TABLET. PO SCH (22:48)
[2020-02-02] MEDS: ISOSORBIDE DINITRATE 10 MG TABLET. PO SCH (23:40)
[2020-02-02] MEDS: HEPARIN for SUB-Q USE 5,000 UNIT/ML VIAL. SQ SCH (23:41)
[2020-02-03] VITALS (24 sets, daily range): BP systolic 119–158; BP diastolic 64–89
[2020-02-03] MEDS: KETOTIFEN FUMARATE 0.025% OPHTH SOLUTION BOTTLE. OU SCH ×3 (00:07→21:58)
[2020-02-03] MEDS: PIPERACILLIN/TAZOBACTAM 3.375 GM in IV NORMAL SALINE 50ML 50 ML IV SCH ×5 (00:07→23:44)
[2020-02-03 00:09] LABS: BILIRUBIN,URINE LARGE (NEG); CLARITY,URINE TURBID; COLOR,URINE YELLOW; NITRITE,URINE NEGATIVE (NEG); PH,URINE 5.5 (<5.0-8.0); PROTEIN,URINE 100 mg/dL (NEG-TRACE)
[2020-02-03 00:10] LABS: CALCIUM 8.1 mg/dL (8.5-10.1); CREATININE 1.8 mg/dL (0.7-1.3); GFR 49.2; PHOSPHORUS 2.6 mg/dL (2.6-4.7); POTASSIUM 3.7 mmol/L (3.5-5.1)
[2020-02-03 00:14] LABS: AMPHETAMINE/METHAMPHETAMINE NEG (NEG); BARBITURATES POS (NEG); BENZODIAZEPINES POS (NEG); CANNABINOIDS NEG (NEG); COCAINE NEG (NEG); METHADONE NEG (NEG); OPIATES NEG (NEG); PHENCYCLIDINE NEG (NEG)
[2020-02-03 00:17] LABS: SQUAMOUS EPITHELIAL CELL,UR OCC /LPF
[2020-02-03 00:18] LABS: AMORPHOUS SEDIMENT,UR PRESENT /HPF; BACTERIA,URINE 0 /HPF (0-FEW); GRANULAR CASTS,URINE FEW /HPF; WBC,URINE OCC /HPF (0-4)
[2020-02-03] MEDS: INSULIN REGULAR VIAL 100 UNIT in IV NORMAL SALINE 100ML 100 ML IV PRN (02:08)
[2020-02-03] MEDS: PROPOFOL 100 ML IV PRN ×3 (02:09→16:42)
[2020-02-03] MEDS ORDERED: INSULIN REGULAR VIAL 100 UNIT in IV NORMAL SALINE 100ML 100 ML IV PRN (02:15)
[2020-02-03] MEDS: IV DEXTROSE 5 %-0.45 % NACL 1,000 ML IV SCH ×3 (03:11→10:45)
[2020-02-03 04:12] LABS: BASO # 0.1 x10^3/uL (0.0-0.2); BASO % 1 % (0-3); EOS % 0 % (0-3); HEMATOCRIT 41.1 % (39.0-53.0); HEMOGLOBIN 13.8 g/dL (13.0-17.5); LYMPH # 0.6 x10^3/uL (1.0-4.8); LYMPH % 4 % (24-48); MEAN CORPUSCULAR HEMOGLOBIN 29 pg (25-35); MEAN CORPUSCULAR HGB CONC 34 g/dL (31-37); MEAN CORPUSCULAR VOLUME 88 fL (79-100); MONO # 0.8 x10^3/uL (0.0-1.1); MONO % 6 % (0-9); NEUT # 11.8 x10^3/uL (1.8-7.7); NEUT % 89 % (31-73); PLATELET COUNT 215 x10^3/uL (140-400); RED BLOOD COUNT 4.69 x10^6/uL (4.30-5.70); WHITE BLOOD COUNT 13.3 x10^3/uL (4.0-11.0)
[2020-02-03 04:21] LABS: PROTHROMBIN TIME PATIENT 14.6 SEC (11.7-14.0)
[2020-02-03 04:23] LABS: CALCIUM 8.2 mg/dL (8.5-10.1); CREATININE 1.7 mg/dL (0.7-1.3); GFR 52.5; POTASSIUM 3.1 mmol/L (3.5-5.1)
[2020-02-03] MEDS ORDERED: POTASSIUM CHLORIDE 10MEQ 100 ML IV PRN (05:00)
[2020-02-03] MEDS: POTASSIUM CHLORIDE 10MEQ 100 ML IV SCH ×4 (05:03→07:58)
[2020-02-03] MEDS: HEPARIN for SUB-Q USE 5,000 UNIT/ML VIAL. SQ SCH ×3 (06:10→21:58)
--- NOTE | 2020-02-03 07:13 | NUR ---
Spoke with son who states they speak Mauritian. Unable to speak with patient's , translated through son. States he does not eat chicken, pork or beef. Fish and white milk. Asked about blood transfusions. Son, Froy, states "no for now" and will have to think about it. Gap closed. Advised Dr. Felix, orders received to keep glucostabilizer for the next 2 hours after lantus given. KCL still infusing.
[2020-02-03] MEDS: PANTOPRAZOLE IV PUSH 40 MG VIAL. IVP SCH (07:55)
[2020-02-03] MEDS: LISINOPRIL 20 MG TABLET PO SCH (07:56)
[2020-02-03] MEDS: CHLORHEXIDINE 0.12% 15 ML MOUTHWASH. MM SCH ×2 (07:56→21:52)
[2020-02-03] MEDS: VENLAFAXINE 75 MG TABLET. PO SCH ×2 (07:56→21:52)
[2020-02-03] MEDS: ASPIRIN 325 MG TABLET PO SCH (07:56)
[2020-02-03] MEDS: metFORMIN 500 MG TABLET PO SCH ×2 (07:57→15:47)
[2020-02-03] MEDS: DOCUSATE SODIUM 100 MG CAPSULE. PO SCH ×2 (07:57→21:00)
[2020-02-03] MEDS: SENNOSIDES/DOCUSATE 8.6/50MG TABLET. PO SCH ×2 (07:59→21:00)
[2020-02-03] MEDS: ELECTROLYTE (ICU) PROTOCOL. MC SCH (07:59)
[2020-02-03 08:46] LABS: BASE EXCESS ABG -5 mmol/L (-3-3); HCO3 ABG 20 mmol/L (21-28); PCO2 ABG 35 mmHg (35-46); PO2 ABG 66 mmHg (75-108); SAT O2 ABG 92 % (92-99)
[2020-02-03 08:48] LABS: FIO2 ABG 80
[2020-02-03] MEDS: hydroCHLOROthiazide 25 MG TABLET PO SCH (09:00)
[2020-02-03] MEDS: ISOSORBIDE DINITRATE 10 MG TABLET. PO SCH ×3 (09:00→21:53)
[2020-02-03] MEDS ORDERED: ISOSORBIDE DINITRATE 20 MG PO SCH (09:00)
[2020-02-03] MEDS ORDERED: NON FORMULARY ITEM (Hydrochlorothiazide (Hydrochlorothiazide Tablet) 25 MG) PO SCH (09:00)
[2020-02-03] MEDS: METOPROLOL TART IMMED RELEASE 50 MG TABLET. PO SCH ×2 (09:00→21:00)
--- NOTE | 2020-02-03 09:15 | PDOC ---
PROGRESS NOTES History of Present Illness History of Present Illness VTE Prophylaxis Ordered VTE Prophylaxis Devices: No VTE Pharmacological Prophylaxi: Yes IMPRESSION Assessment/Plan Toxic and metabolic encephalopathy Sepsis with pulmonary focus most likely Suspect gram negative organism pneumonia POS COVID 19 infection DKA lactic acidosis secondary to a combination of metabolic and infectious process ongoing Acute renal failure, vasomotor etiology most likely Hypernatremia Severe dehydration History of essential hypertension History of CVA Diabetes mellitus type 2 insulin requiring Severe anion gap metabolic acidosis Plan: isolation admit to ICU VENT SUPPORT fluid resuscitation DKA protocol Broad spectrum antibiotics for pneumonic process POS COVID 19 infection follow BMP every 4 hours. supportive measures vent management, will consult pulmonology for assistance. further recommendations based on clinical course DVT prophylaxis: heparin Justicifation of Admission Dx: Justicifation of Admission Dx: Justifications for Admission: Justification of Admission Dx: Yes Sepsis: Altered Mental Status 35 MIN CC TIME Vitals Vitals Vital Signs Date Time Temp Pulse Resp B/P (MAP) Pulse Ox O2 Delivery O2 Flow Rate FiO2 02/03/20 09:00 68 24 136/78 (97) 94 Ventilator 02/03/20 08:00 97.7 97.7 02/02/20 20:52 15.0 Physical Exam Lungs: Clear, Other Labs LABS CHEST AP ONLY History: Reason: s/p ETT adjustment 22 / Spl. Instructions: / History: Comparison: February 02, 2020 Findings: Interval retraction of endotracheal tube with tip 4 cm above the cynthia. Diffuse interstitial and alveolar opacities, unchanged allowing lower lung volumes. Small left pleural effusion. No pneumothorax. Unchanged heart size. Stable enteric tube. Impression: 1. Interval retraction of endotracheal tube. 2. Diffuse interstitial and alveolar opacities, similar compared to prior. Electronically signed by: Osito Vidal DO (02/02/2020 5:57 PM) [facility] Laboratory Tests Test 02/02/20 15:44 02/02/20 15:45 02/02/20 19:58 02/02/20 20:10 O2 Saturation 96 % (92-99) Arterial Blood pH 7.01 (7.35-7.45) Arterial Blood pCO2 at Patient Temp 37 mmHg (35-46) Arterial Blood pO2 at Patient Temp 118 mmHg (75-108) Arterial Blood HCO3 9 mmol/L (21-28) Arterial Blood Base Excess -21 mmol/L (-3-3) Oxyhemoglobin 95.1 % Methemoglobin 0.5 % (0.0-1.9) Carbon Monoxide, Quantitative 0.2 % (0.0-1.9) FiO2 100% vent White Blood Count 14.7 x10^3/uL (4.0-11.0) Red Blood Count 5.70 x10^6/uL (4.30-5.70) Hemoglobin 17.3 g/dL (13.0-17.5) Hematocrit 51.8 % (39.0-53.0) Mean Corpuscular Volume 91 fL (79-100) Mean Corpuscular Hemoglobin 30 pg (25-35) Mean Corpuscular Hemoglobin Concent 33 g/dL (31-37) Red Cell Distribution Width 14.4 % (11.5-14.5) Platelet Count 308 x10^3/uL (140-400) Neutrophils (%) (Auto) 87 % (31-73) Lymphocytes (%) (Auto) 5 % (24-48) Monocytes (%) (Auto) 8 % (0-9) Eosinophils (%) (Auto) 0 % (0-3) Basophils (%) (Auto) 0 % (0-3) Neutrophils # (Auto) 12.8 x10^3/uL (1.8-7.7) Lymphocytes # (Auto) 0.7 x10^3/uL (1.0-4.8) Monocytes # (Auto) 1.2 x10^3/uL (0.0-1.1) Eosinophils # (Auto) 0.0 x10^3/uL (0.0-0.7) Basophils # (Auto) 0.1 x10^3/uL (0.0-0.2) Segmented Neutrophils % 79 % (35-66) Band Neutrophils % 9 % (0-9) Lymphocytes % 5 % (24-48) Atypical Lymphocytes % (Manual) 1 % (0-0) Monocytes % 5 % (0-10) Metamyelocytes % 1 % (0-0) Platelet Estimate Adequate (ADEQUATE) Prothrombin Time 14.9 SEC (11.7-14.0) Prothromb Time International Ratio 1.2 (0.8-1.1) Activated Partial Thromboplast Time 20 SEC (24-38) Sodium Level 147 mmol/L (136-145) 152 mmol/L (136-145) Potassium Level 4.4 mmol/L (3.5-5.1) 4.1 mmol/L (3.5-5.1) Chloride Level 102 mmol/L (98-107) 113 mmol/L (98-107) Carbon Dioxide Level 10 mmol/L (21-32) 15 mmol/L (21-32) Anion Gap 35 (6-14) 24 (6-14) Blood Urea Nitrogen 35 mg/dL (8-26) 33 mg/dL (8-26) Creatinine 1.9 mg/dL (0.7-1.3) 1.8 mg/dL (0.7-1.3) Estimated GFR (Cockcroft-Gault) 46.2 49.2 BUN/Creatinine Ratio 18 (6-20) Glucose Level 649 mg/dL (70-99) 374 mg/dL (70-99) Lactic Acid Level 4.0 mmol/L (0.4-2.0) 1.5 mmol/L (0.4-2.0) Calcium Level 10.4 mg/dL (8.5-10.1) 8.4 mg/dL (8.5-10.1) Magnesium Level 2.7 mg/dL (1.8-2.4) 2.0 mg/dL (1.8-2.4) Ferritin 685 ng/mL (26-388) Total Bilirubin 0.6 mg/dL (0.2-1.0) Aspartate Amino Transf (AST/SGOT) 30 U/L (15-37) Alanine Aminotransferase (ALT/SGPT) 17 U/L (16-63) Alkaline Phosphatase 95 U/L (46-116) Ammonia 16 mcmol/L (11-34) Lactate Dehydrogenase 631 U/L (85-227) Creatine Kinase 293 U/L (39-308) Creatine Kinase MB (Mass) 3.1 ng/mL (0.0-3.6) Creatine Kinase MB Relative Index 1.1 % (0-4) Troponin I Quantitative < 0.017 ng/mL (0.000-0.055) PP-Kok-M-Type Natriuretic Peptide 314 pg/mL (0-124) Total Protein 8.7 g/dL (6.4-8.2) Albumin 3.0 g/dL (3.4-5.0) 2.4 g/dL (3.4-5.0) Albumin/Globulin Ratio 0.5 (1.0-1.7) Salicylates Level 6.6 mg/dL (2.8-20.0) Salicylate Last Dose Date Unk Salicylate Last Dose Time Unk Acetaminophen Level < 2 mcg/ml (10-30) Acetaminophen Last Dose Date Unk Acetaminophen Last Dose Time Unk Ethyl Alcohol Level < 10 mg/dL (0-10) Coronavirus (COVID-19)(PCR) Detected (NOT DETECT.) Glucose (Fingerstick) 389 mg/dL (70-99) Phosphorus Level 5.8 mg/dL (2.6-4.7) Test 02/02/20 21:30 02/02/20 22:25 02/02/20 22:36 02/02/20 23:45 Glucose (Fingerstick) 287 mg/dL (70-99) 236 mg/dL (70-99) O2 Saturation 98 % (92-99) Arterial Blood pH 7.27 (7.35-7.45) Arterial Blood pCO2 at Patient Temp 39 mmHg (35-46) Arterial Blood pO2 at Patient Temp 124 mmHg (75-108) Arterial Blood pO2 (Temp corrected) mmHg Arterial Blood HCO3 17 mmol/L (21-28) Arterial Blood Base Excess -9 mmol/L (-3-3) Urine Collection Type U cath Urine Color Yellow Urine Clarity Turbid Urine pH 5.5 (<5.0-8.0) Urine Specific [place] 1.025 (1.000-1.030) Urine Protein 100 mg/dL (NEG-TRACE) Urine Glucose (UA) 500 mg/dL (NEG) Urine Ketones (Stick) 40 mg/dL (NEG) Urine Blood Small (NEG) Urine Nitrite Negative (NEG) Urine Bilirubin Large (NEG) Urine Urobilinogen Dipstick 1.0 mg/dL (0.2 mg/dL) Urine Leukocyte Esterase Negative (NEG) Urine RBC 1-2 /HPF (0-2) Urine WBC Occ /HPF (0-4) Urine Squamous Epithelial Cells Occ /LPF Urine Amorphous Sediment Present /HPF Urine Bacteria 0 /HPF (0-FEW) Urine Granular Casts Few /HPF Urine Mucus Slight /LPF Urine Opiates Screen Neg (NEG) Urine Methadone Screen Neg (NEG) Urine Barbiturates Pos (NEG) Urine Phencyclidine Screen Neg (NEG) Urine Amphetamine/Methamphetamine Neg (NEG) Urine Benzodiazepines Screen Pos (NEG) Urine Cocaine Screen Neg (NEG) Urine Cannabinoids Screen Neg (NEG) Urine Ethyl Alcohol Neg (NEG) Test 02/02/20 23:50 02/02/20 23:51 02/03/20 00:55 02/03/20 02:02 Sodium Level 151 mmol/L (136-145) Potassium Level 3.7 mmol/L (3.5-5.1) Chloride Level 114 mmol/L (98-107) Carbon Dioxide Level 21 mmol/L (21-32) Anion Gap 16 (6-14) Blood Urea Nitrogen 32 mg/dL (8-26) Creatinine 1.8 mg/dL (0.7-1.3) Estimated GFR (Cockcroft-Gault) 49.2 Glucose Level 278 mg/dL (70-99) Calcium Level 8.1 mg/dL (8.5-10.1) Phosphorus Level 2.6 mg/dL (2.6-4.7) Magnesium Level 2.0 mg/dL (1.8-2.4) Glucose (Fingerstick) 241 mg/dL (70-99) 246 mg/dL (70-99) 258 mg/dL (70-99) Test 02/03/20 02:58 02/03/20 03:50 02/03/20 04:04 02/03/20 05:14 Glucose (Fingerstick) 245 mg/dL (70-99) 207 mg/dL (70-99) 160 mg/dL (70-99) White Blood Count 13.3 x10^3/uL (4.0-11.0) Red Blood Count 4.69 x10^6/uL (4.30-5.70) Hemoglobin 13.8 g/dL (13.0-17.5) Hematocrit 41.1 % (39.0-53.0) Mean Corpuscular Volume 88 fL (79-100) Mean Corpuscular Hemoglobin 29 pg (25-35) Mean Corpuscular Hemoglobin Concent 34 g/dL (31-37) Red Cell Distribution Width 14.0 % (11.5-14.5) Platelet Count 215 x10^3/uL (140-400) Neutrophils (%) (Auto) 89 % (31-73) Lymphocytes (%) (Auto) 4 % (24-48) Monocytes (%) (Auto) 6 % (0-9) Eosinophils (%) (Auto) 0 % (0-3) Basophils (%) (Auto) 1 % (0-3) Neutrophils # (Auto) 11.8 x10^3/uL (1.8-7.7) Lymphocytes # (Auto) 0.6 x10^3/uL (1.0-4.8) Monocytes # (Auto) 0.8 x10^3/uL (0.0-1.1) Eosinophils # (Auto) 0.0 x10^3/uL (0.0-0.7) Basophils # (Auto) 0.1 x10^3/uL (0.0-0.2) Prothrombin Time 14.6 SEC (11.7-14.0) Prothromb Time International Ratio 1.2 (0.8-1.1) Sodium Level 150 mmol/L (136-145) Potassium Level 3.1 mmol/L (3.5-5.1) Chloride Level 115 mmol/L (98-107) Carbon Dioxide Level 23 mmol/L (21-32) Anion Gap 12 (6-14) Blood Urea Nitrogen 26 mg/dL (8-26) Creatinine 1.7 mg/dL (0.7-1.3) Estimated GFR (Cockcroft-Gault) 52.5 Glucose Level 222 mg/dL (70-99) Calcium Level 8.2 mg/dL (8.5-10.1) Test 02/03/20 06:23 02/03/20 08:08 02/03/20 08:30 Glucose (Fingerstick) 80 mg/dL (70-99) 108 mg/dL (70-99) O2 Saturation 92 % (92-99) Arterial Blood pH 7.37 (7.35-7.45) Arterial Blood pCO2 at Patient Temp 35 mmHg (35-46) Arterial Blood pO2 at Patient Temp 66 mmHg (75-108) Arterial Blood HCO3 20 mmol/L (21-28) Arterial Blood Base Excess -5 mmol/L (-3-3) FiO2 80 Assessment and Plan Assessmemt and Plan Problems Medical Problems: (1) Acute metabolic encephalopathy Status: Acute (2) Acute renal insufficiency Status: Acute (3) DKA (diabetic ketoacidoses) Status: Acute (4) Pneumonia Status: Acute (5) Respiratory failure with hypoxia Status: Acute (6) Suspected 2019 novel coronavirus infection Status: Acute Comment Review of Relevant I have reviewed the following items myra (where applicable) has been applied. Labs Laboratory Tests Test 02/02/20 15:44 02/02/20 15:45 02/02/20 19:58 02/02/20 20:10 O2 Saturation 96 % (92-99) Arterial Blood pH 7.01 (7.35-7.45) Arterial Blood pCO2 at Patient Temp 37 mmHg (35-46) Arterial Blood pO2 at Patient Temp 118 mmHg (75-108) Arterial Blood HCO3 9 mmol/L (21-28) Arterial Blood Base Excess -21 mmol/L (-3-3) Oxyhemoglobin 95.1 % Methemoglobin 0.5 % (0.0-1.9) Carbon Monoxide, Quantitative 0.2 % (0.0-1.9) FiO2 100% vent White Blood Count 14.7 x10^3/uL (4.0-11.0) Red Blood Count 5.70 x10^6/uL (4.30-5.70) Hemoglobin 17.3 g/dL (13.0-17.5) Hematocrit 51.8 % (39.0-53.0) Mean Corpuscular Volume 91 fL (79-100) Mean Corpuscular Hemoglobin 30 pg (25-35) Mean Corpuscular Hemoglobin Concent 33 g/dL (31-37) Red Cell Distribution Width 14.4 % (11.5-14.5) Platelet Count 308 x10^3/uL (140-400) Neutrophils (%) (Auto) 87 % (31-73) Lymphocytes (%) (Auto) 5 % (24-48) Monocytes (%) (Auto) 8 % (0-9) Eosinophils (%) (Auto) 0 % (0-3) Basophils (%) (Auto) 0 % (0-3) Neutrophils # (Auto) 12.8 x10^3/uL (1.8-7.7) Lymphocytes # (Auto) 0.7 x10^3/uL (1.0-4.8) Monocytes # (Auto) 1.2 x10^3/uL (0.0-1.1) Eosinophils # (Auto) 0.0 x10^3/uL (0.0-0.7) Basophils # (Auto) 0.1 x10^3/uL (0.0-0.2) Segmented Neutrophils % 79 % (35-66) Band Neutrophils % 9 % (0-9) Lymphocytes % 5 % (24-48) Atypical Lymphocytes % (Manual) 1 % (0-0) Monocytes % 5 % (0-10) Metamyelocytes % 1 % (0-0) Platelet Estimate Adequate (ADEQUATE) Prothrombin Time 14.9 SEC (11.7-14.0) Prothromb Time International Ratio 1.2 (0.8-1.1) Activated Partial Thromboplast Time 20 SEC (24-38) Sodium Level 147 mmol/L (136-145) 152 mmol/L (136-145) Potassium Level 4.4 mmol/L (3.5-5.1) 4.1 mmol/L (3.5-5.1) Chloride Level 102 mmol/L (98-107) 113 mmol/L (98-107) Carbon Dioxide Level 10 mmol/L (21-32) 15 mmol/L (21-32) Anion Gap 35 (6-14) 24 (6-14) Blood Urea Nitrogen 35 mg/dL (8-26) 33 mg/dL (8-26) Creatinine 1.9 mg/dL (0.7-1.3) 1.8 mg/dL (0.7-1.3) Estimated GFR (Cockcroft-Gault) 46.2 49.2 BUN/Creatinine Ratio 18 (6-20) Glucose Level 649 mg/dL (70-99) 374 mg/dL (70-99) Lactic Acid Level 4.0 mmol/L (0.4-2.0) 1.5 mmol/L (0.4-2.0) Calcium Level 10.4 mg/dL (8.5-10.1) 8.4 mg/dL (8.5-10.1) Magnesium Level 2.7 mg/dL (1.8-2.4) 2.0 mg/dL (1.8-2.4) Ferritin 685 ng/mL (26-388) Total Bilirubin 0.6 mg/dL (0.2-1.0) Aspartate Amino Transf (AST/SGOT) 30 U/L (15-37) Alanine Aminotransferase (ALT/SGPT) 17 U/L (16-63) Alkaline Phosphatase 95 U/L (46-116) Ammonia 16 mcmol/L (11-34) Lactate Dehydrogenase 631 U/L (85-227) Creatine Kinase 293 U/L (39-308) Creatine Kinase MB (Mass) 3.1 ng/mL (0.0-3.6) Creatine Kinase MB Relative Index 1.1 % (0-4) Troponin I Quantitative < 0.017 ng/mL (0.000-0.055) GL-Wrn-Q-Type Natriuretic Peptide 314 pg/mL (0-124) Total Protein 8.7 g/dL (6.4-8.2) Albumin 3.0 g/dL (3.4-5.0) 2.4 g/dL (3.4-5.0) Albumin/Globulin Ratio 0.5 (1.0-1.7) Salicylates Level 6.6 mg/dL (2.8-20.0) Salicylate Last Dose Date Unk Salicylate Last Dose Time Unk Acetaminophen Level < 2 mcg/ml (10-30) Acetaminophen Last Dose Date Unk Acetaminophen Last Dose Time Unk Ethyl Alcohol Level < 10 mg/dL (0-10) Coronavirus (COVID-19)(PCR) Detected (NOT DETECT.) Glucose (Fingerstick) 389 mg/dL (70-99) Phosphorus Level 5.8 mg/dL (2.6-4.7) Test 02/02/20 21:30 02/02/20 22:25 02/02/20 22:36 02/02/20 23:45 Glucose (Fingerstick) 287 mg/dL (70-99) 236 mg/dL (70-99) O2 Saturation 98 % (92-99) Arterial Blood pH 7.27 (7.35-7.45) Arterial Blood pCO2 at Patient Temp 39 mmHg (35-46) Arterial Blood pO2 at Patient Temp 124 mmHg (75-108) Arterial Blood pO2 (Temp corrected) mmHg Arterial Blood HCO3 17 mmol/L (21-28) Arterial Blood Base Excess -9 mmol/L (-3-3) Urine Collection Type U cath Urine Color Yellow Urine Clarity Turbid Urine pH 5.5 (<5.0-8.0) Urine Specific [place] 1.025 (1.000-1.030) Urine Protein 100 mg/dL (NEG-TRACE) Urine Glucose (UA) 500 mg/dL (NEG) Urine Ketones (Stick) 40 mg/dL (NEG) Urine Blood Small (NEG) Urine Nitrite Negative (NEG) Urine Bilirubin Large (NEG) Urine Urobilinogen Dipstick 1.0 mg/dL (0.2 mg/dL) Urine Leukocyte Esterase Negative (NEG) Urine RBC 1-2 /HPF (0-2) Urine WBC Occ /HPF (0-4) Urine Squamous Epithelial Cells Occ /LPF Urine Amorphous Sediment Present /HPF Urine Bacteria 0 /HPF (0-FEW) Urine Granular Casts Few /HPF Urine Mucus Slight /LPF Urine Opiates Screen Neg (NEG) Urine Methadone Screen Neg (NEG) Urine Barbiturates Pos (NEG) Urine Phencyclidine Screen Neg (NEG) Urine Amphetamine/Methamphetamine Neg (NEG) Urine Benzodiazepines Screen Pos (NEG) Urine Cocaine Screen Neg (NEG) Urine Cannabinoids Screen Neg (NEG) Urine Ethyl Alcohol Neg (NEG) Test 02/02/20 23:50 02/02/20 23:51 02/03/20 00:55 02/03/20 02:02 Sodium Level 151 mmol/L (136-145) Potassium Level 3.7 mmol/L (3.5-5.1) Chloride Level 114 mmol/L (98-107) Carbon Dioxide Level 21 mmol/L (21-32) Anion Gap 16 (6-14) Blood Urea Nitrogen 32 mg/dL (8-26) Creatinine 1.8 mg/dL (0.7-1.3) Estimated GFR (Cockcroft-Gault) 49.2 Glucose Level 278 mg/dL (70-99) Calcium Level 8.1 mg/dL (8.5-10.1) Phosphorus Level 2.6 mg/dL (2.6-4.7) Magnesium Level 2.0 mg/dL (1.8-2.4) Glucose (Fingerstick) 241 mg/dL (70-99) 246 mg/dL (70-99) 258 mg/dL (70-99) Test 02/03/20 02:58 02/03/20 03:50 02/03/20 04:04 02/03/20 05:14 Glucose (Fingerstick) 245 mg/dL (70-99) 207 mg/dL (70-99) 160 mg/dL (70-99) White Blood Count 13.3 x10^3/uL (4.0-11.0) Red Blood Count 4.69 x10^6/uL (4.30-5.70) Hemoglobin 13.8 g/dL (13.0-17.5) Hematocrit 41.1 % (39.0-53.0) Mean Corpuscular Volume 88 fL (79-100) Mean Corpuscular Hemoglobin 29 pg (25-35) Mean Corpuscular Hemoglobin Concent 34 g/dL (31-37) Red Cell Distribution Width 14.0 % (11.5-14.5) Platelet Count 215 x10^3/uL (140-400) Neutrophils (%) (Auto) 89 % (31-73) Lymphocytes (%) (Auto) 4 % (24-48) Monocytes (%) (Auto) 6 % (0-9) Eosinophils (%) (Auto) 0 % (0-3) Basophils (%) (Auto) 1 % (0-3) Neutrophils # (Auto) 11.8 x10^3/uL (1.8-7.7) Lymphocytes # (Auto) 0.6 x10^3/uL (1.0-4.8) Monocytes # (Auto) 0.8 x10^3/uL (0.0-1.1) Eosinophils # (Auto) 0.0 x10^3/uL (0.0-0.7) Basophils # (Auto) 0.1 x10^3/uL (0.0-0.2) Prothrombin Time 14.6 SEC (11.7-14.0) Prothromb Time International Ratio 1.2 (0.8-1.1) Sodium Level 150 mmol/L (136-145) Potassium Level 3.1 mmol/L (3.5-5.1) Chloride Level 115 mmol/L (98-107) Carbon Dioxide Level 23 mmol/L (21-32) Anion Gap 12 (6-14) Blood Urea Nitrogen 26 mg/dL (8-26) Creatinine 1.7 mg/dL (0.7-1.3) Estimated GFR (Cockcroft-Gault) 52.5 Glucose Level 222 mg/dL (70-99) Calcium Level 8.2 mg/dL (8.5-10.1) Test 02/03/20 06:23 02/03/20 08:08 02/03/20 08:30 Glucose (Fingerstick) 80 mg/dL (70-99) 108 mg/dL (70-99) O2 Saturation 92 % (92-99) Arterial Blood pH 7.37 (7.35-7.45) Arterial Blood pCO2 at Patient Temp 35 mmHg (35-46) Arterial Blood pO2 at Patient Temp 66 mmHg (75-108) Arterial Blood HCO3 20 mmol/L (21-28) Arterial Blood Base Excess -5 mmol/L (-3-3) FiO2 80 Laboratory Tests Test 02/02/20 15:44 02/02/20 15:45 02/02/20 19:58 02/02/20 20:10 O2 Saturation 96 % (92-99) Arterial Blood pH 7.01 (7.35-7.45) Arterial Blood pCO2 at Patient Temp 37 mmHg (35-46) Arterial Blood pO2 at Patient Temp 118 mmHg (75-108) Arterial Blood HCO3 9 mmol/L (21-28) Arterial Blood Base Excess -21 mmol/L (-3-3) Oxyhemoglobin 95.1 % Methemoglobin 0.5 % (0.0-1.9) Carbon Monoxide, Quantitative 0.2 % (0.0-1.9) FiO2 100% vent White Blood Count 14.7 x10^3/uL (4.0-11.0) Red Blood Count 5.70 x10^6/uL (4.30-5.70) Hemoglobin 17.3 g/dL (13.0-17.5) Hematocrit 51.8 % (39.0-53.0) Mean Corpuscular Volume 91 fL (79-100) Mean Corpuscular Hemoglobin 30 pg (25-35) Mean Corpuscular Hemoglobin Concent 33 g/dL (31-37) Red Cell Distribution Width 14.4 % (11.5-14.5) Platelet Count 308 x10^3/uL (140-400) Neutrophils (%) (Auto) 87 % (31-73) Lymphocytes (%) (Auto) 5 % (24-48) Monocytes (%) (Auto) 8 % (0-9) Eosinophils (%) (Auto) 0 % (0-3) Basophils (%) (Auto) 0 % (0-3) Neutrophils # (Auto) 12.8 x10^3/uL (1.8-7.7) Lymphocytes # (Auto) 0.7 x10^3/uL (1.0-4.8) Monocytes # (Auto) 1.2 x10^3/uL (0.0-1.1) Eosinophils # (Auto) 0.0 x10^3/uL (0.0-0.7) Basophils # (Auto) 0.1 x10^3/uL (0.0-0.2) Segmented Neutrophils % 79 % (35-66) Band Neutrophils % 9 % (0-9) Lymphocytes % 5 % (24-48) Atypical Lymphocytes % (Manual) 1 % (0-0) Monocytes % 5 % (0-10) Metamyelocytes % 1 % (0-0) Platelet Estimate Adequate (ADEQUATE) Prothrombin Time 14.9 SEC (11.7-14.0) Prothromb Time International Ratio 1.2 (0.8-1.1) Activated Partial Thromboplast Time 20 SEC (24-38) Sodium Level 147 mmol/L (136-145) 152 mmol/L (136-145) Potassium Level 4.4 mmol/L (3.5-5.1) 4.1 mmol/L (3.5-5.1) Chloride Level 102 mmol/L (98-107) 113 mmol/L (98-107) Carbon Dioxide Level 10 mmol/L (21-32) 15 mmol/L (21-32) Anion Gap 35 (6-14) 24 (6-14) Blood Urea Nitrogen 35 mg/dL (8-26) 33 mg/dL (8-26) Creatinine 1.9 mg/dL (0.7-1.3) 1.8 mg/dL (0.7-1.3) Estimated GFR (Cockcroft-Gault) 46.2 49.2 BUN/Creatinine Ratio 18 (6-20) Glucose Level 649 mg/dL (70-99) 374 mg/dL (70-99) Lactic Acid Level 4.0 mmol/L (0.4-2.0) 1.5 mmol/L (0.4-2.0) Calcium Level 10.4 mg/dL (8.5-10.1) 8.4 mg/dL (8.5-10.1) Magnesium Level 2.7 mg/dL (1.8-2.4) 2.0 mg/dL (1.8-2.4) Ferritin 685 ng/mL (26-388) Total Bilirubin 0.6 mg/dL (0.2-1.0) Aspartate Amino Transf (AST/SGOT) 30 U/L (15-37) Alanine Aminotransferase (ALT/SGPT) 17 U/L (16-63) Alkaline Phosphatase 95 U/L (46-116) Ammonia 16 mcmol/L (11-34) Lactate Dehydrogenase 631 U/L (85-227) Creatine Kinase 293 U/L (39-308) Creatine Kinase MB (Mass) 3.1 ng/mL (0.0-3.6) Creatine Kinase MB Relative Index 1.1 % (0-4) Troponin I Quantitative < 0.017 ng/mL (0.000-0.055) PA-Ncu-U-Type Natriuretic Peptide 314 pg/mL (0-124) Total Protein 8.7 g/dL (6.4-8.2) Albumin 3.0 g/dL (3.4-5.0) 2.4 g/dL (3.4-5.0) Albumin/Globulin Ratio 0.5 (1.0-1.7) Salicylates Level 6.6 mg/dL (2.8-20.0) Salicylate Last Dose Date Unk Salicylate Last Dose Time Unk Acetaminophen Level < 2 mcg/ml (10-30) Acetaminophen Last Dose Date Unk Acetaminophen Last Dose Time Unk Ethyl Alcohol Level < 10 mg/dL (0-10) Coronavirus (COVID-19)(PCR) Detected (NOT DETECT.) Glucose (Fingerstick) 389 mg/dL (70-99) Phosphorus Level 5.8 mg/dL (2.6-4.7) Test 02/02/20 21:30 02/02/20 22:25 02/02/20 22:36 02/02/20 23:45 Glucose (Fingerstick) 287 mg/dL (70-99) 236 mg/dL (70-99) O2 Saturation 98 % (92-99) Arterial Blood pH 7.27 (7.35-7.45) Arterial Blood pCO2 at Patient Temp 39 mmHg (35-46) Arterial Blood pO2 at Patient Temp 124 mmHg (75-108) Arterial Blood pO2 (Temp corrected) mmHg Arterial Blood HCO3 17 mmol/L (21-28) Arterial Blood Base Excess -9 mmol/L (-3-3) Urine Collection Type U cath Urine Color Yellow Urine Clarity Turbid Urine pH 5.5 (<5.0-8.0) Urine Specific [place] 1.025 (1.000-1.030) Urine Protein 100 mg/dL (NEG-TRACE) Urine Glucose (UA) 500 mg/dL (NEG) Urine Ketones (Stick) 40 mg/dL (NEG) Urine Blood Small (NEG) Urine Nitrite Negative (NEG) Urine Bilirubin Large (NEG) Urine Urobilinogen Dipstick 1.0 mg/dL (0.2 mg/dL) Urine Leukocyte Esterase Negative (NEG) Urine RBC 1-2 /HPF (0-2) Urine WBC Occ /HPF (0-4) Urine Squamous Epithelial Cells Occ /LPF Urine Amorphous Sediment Present /HPF Urine Bacteria 0 /HPF (0-FEW) Urine Granular Casts Few /HPF Urine Mucus Slight /LPF Urine Opiates Screen Neg (NEG) Urine Methadone Screen Neg (NEG) Urine Barbiturates Pos (NEG) Urine Phencyclidine Screen Neg (NEG) Urine Amphetamine/Methamphetamine Neg (NEG) Urine Benzodiazepines Screen Pos (NEG) Urine Cocaine Screen Neg (NEG) Urine Cannabinoids Screen Neg (NEG) Urine Ethyl Alcohol Neg (NEG) Test 02/02/20 23:50 02/02/20 23:51 02/03/20 00:55 02/03/20 02:02 Sodium Level 151 mmol/L (136-145) Potassium Level 3.7 mmol/L (3.5-5.1) Chloride Level 114 mmol/L (98-107) Carbon Dioxide Level 21 mmol/L (21-32) Anion Gap 16 (6-14) Blood Urea Nitrogen 32 mg/dL (8-26) Creatinine 1.8 mg/dL (0.7-1.3) Estimated GFR (Cockcroft-Gault) 49.2 Glucose Level 278 mg/dL (70-99) Calcium Level 8.1 mg/dL (8.5-10.1) Phosphorus Level 2.6 mg/dL (2.6-4.7) Magnesium Level 2.0 mg/dL (1.8-2.4) Glucose (Fingerstick) 241 mg/dL (70-99) 246 mg/dL (70-99) 258 mg/dL (70-99) Test 02/03/20 02:58 02/03/20 03:50 02/03/20 04:04 02/03/20 05:14 Glucose (Fingerstick) 245 mg/dL (70-99) 207 mg/dL (70-99) 160 mg/dL (70-99) White Blood Count 13.3 x10^3/uL (4.0-11.0) Red Blood Count 4.69 x10^6/uL (4.30-5.70) Hemoglobin 13.8 g/dL (13.0-17.5) Hematocrit 41.1 % (39.0-53.0) Mean Corpuscular Volume 88 fL (79-100) Mean Corpuscular Hemoglobin 29 pg (25-35) Mean Corpuscular Hemoglobin Concent 34 g/dL (31-37) Red Cell Distribution Width 14.0 % (11.5-14.5) Platelet Count 215 x10^3/uL (140-400) Neutrophils (%) (Auto) 89 % (31-73) Lymphocytes (%) (Auto) 4 % (24-48) Monocytes (%) (Auto) 6 % (0-9) Eosinophils (%) (Auto) 0 % (0-3) Basophils (%) (Auto) 1 % (0-3) Neutrophils # (Auto) 11.8 x10^3/uL (1.8-7.7) Lymphocytes # (Auto) 0.6 x10^3/uL (1.0-4.8) Monocytes # (Auto) 0.8 x10^3/uL (0.0-1.1) Eosinophils # (Auto) 0.0 x10^3/uL (0.0-0.7) Basophils # (Auto) 0.1 x10^3/uL (0.0-0.2) Prothrombin Time 14.6 SEC (11.7-14.0) Prothromb Time International Ratio 1.2 (0.8-1.1) Sodium Level 150 mmol/L (136-145) Potassium Level 3.1 mmol/L (3.5-5.1) Chloride Level 115 mmol/L (98-107) Carbon Dioxide Level 23 mmol/L (21-32) Anion Gap 12 (6-14) Blood Urea Nitrogen 26 mg/dL (8-26) Creatinine 1.7 mg/dL (0.7-1.3) Estimated GFR (Cockcroft-Gault) 52.5 Glucose Level 222 mg/dL (70-99) Calcium Level 8.2 mg/dL (8.5-10.1) Test 02/03/20 06:23 02/03/20 08:08 02/03/20 08:30 Glucose (Fingerstick) 80 mg/dL (70-99) 108 mg/dL (70-99) O2 Saturation 92 % (92-99) Arterial Blood pH 7.37 (7.35-7.45) Arterial Blood pCO2 at Patient Temp 35 mmHg (35-46) Arterial Blood pO2 at Patient Temp 66 mmHg (75-108) Arterial Blood HCO3 20 mmol/L (21-28) Arterial Blood Base Excess -5 mmol/L (-3-3) FiO2 80 Medications Current Medications Sodium Chloride 1,000 ml @ 1,000 mls/hr 1X ONCE IV Last administered on 02/02/20at 16:48; Start 02/02/20 at 15:45; Stop 02/02/20 at 16:44; Status DC Etomidate (Amidate) 20 mg 1X ONCE IV Last administered on 02/02/20at 15:54; Start 02/02/20 at 15:45; Stop 02/02/20 at 15:52; Status DC Rocuronium Andreas (Zemuron) 50 mg 1X ONCE IV Last administered on 02/02/20at 15:55; Start 02/02/20 at 15:45; Stop 02/02/20 at 15:52; Status DC Propofol 100 ml @ 0 mls/hr CONT PRN IV SEE PROTOCOL Last administered on 02/02/20at 16:33; Start 02/02/20 at 15:45; Stop 02/02/20 at 17:44; Status DC Chlorhexidine Gluconate (Peridex) 15 ml BID MM ; Start 02/02/20 at 21:00; Stop 02/02/20 at 17:39; Status DC Fentanyl Citrate (Fentanyl 2ml Vial) 100 mcg 1X ONCE IV Last administered on 02/02/20at 16:34; Start 02/02/20 at 16:15; Stop 02/02/20 at 16:16; Status DC Sodium Chloride 1,000 ml @ 1,000 mls/hr 1X ONCE IV Last administered on 02/02/20at 16:15; Start 02/02/20 at 16:15; Stop 02/02/20 at 17:20; Status DC Aspirin (Aspirin Rectal Supp) 300 mg 1X ONCE OK Last administered on 02/02/20at 16:35; Start 02/02/20 at 16:15; Stop 02/02/20 at 16:17; Status DC Acetaminophen (Tylenol) 650 mg PRN Q6HRS PRN PO Headaches, Temp > 101.5'; Start 02/02/20 at 16:15 Prochlorperazine Edisylate (Compazine) 5 mg PRN Q6HRS PRN IVP NAUSEA/VOMITING; Start 02/02/20 at 16:15 Prochlorperazine (Compazine) 25 mg PRN Q12HR PRN OK NAUSEA/VOMITING; Start 02/02/20 at 16:15 Info (Icu Electrolyte Protocol) 1 ea DAILY MC ; Start 02/03/20 at 09:00 Heparin Sodium (Porcine) (Heparin Sodium) 5,000 unit Q8HRS SQ Last administered on 02/03/20at 06:10; Start 02/02/20 at 22:00 Sodium Chloride (Normal Saline Flush) 3 ml QSHIFT PRN IV AFTER MEDS AND BLOOD DRAWS; Start 02/02/20 at 16:15 Oxycodone/ Acetaminophen (Percocet 5/325) 1 tab PRN Q4HRS PRN PO MILD PAIN, 1ST CHOICE; Start 02/02/20 at 16:15 Morphine Sulfate (Morphine Sulfate) 2 mg PRN Q1HR PRN IV PAIN; Start 02/02/20 at 16:15 Senna/Docusate Sodium (Senna Plus) 1 tab BID PO ; Start 02/02/20 at 21:00 Docusate Sodium (Colace) 100 mg BID PO ; Start 02/02/20 at 21:00 Lactulose (Lactulose) 20 gm PRN Q12HR PRN PO CONSTIPATION; Start 02/02/20 at 16:15 Amlodipine Besylate (Norvasc) 10 mg HS PO Last administered on 02/02/20at 22:46; Start 02/02/20 at 21:00 Aspirin (Grover Aspirin) 325 mg DAILY PO Last administered on 02/03/20at 07:56; Start 02/03/20 at 09:00 Atorvastatin Calcium (Lipitor) 20 mg QHS PO Last administered on 02/02/20at 22:45; Start 02/02/20 at 21:00 Acetaminophen/ Butalbital/ Caffeine (Fioricet) 1 tab PRN Q6HRS PRN PO MIGRAINE HEADACHE; Start 02/02/20 at 16:15 Hydrochlorothiazide (Hydrodiuril) 25 mg DAILY PO ; Start 02/03/20 at 09:00 Isosorbide Dinitrate (Isordil) 10 mg TID PO Last administered on 02/02/20at 23:40; Start 02/02/20 at 21:00 Lisinopril (Prinivil) 40 mg DAILY PO Last administered on 02/03/20at 07:56; Start 02/03/20 at 09:00 Metoprolol Tartrate (Lopressor) 50 mg BID PO Last administered on 02/02/20at 22:48; Start 02/02/20 at 21:00 Non-Formulary Medication (Hydrochlorothiazide (Hydrochlorothiazide Tablet)) 25 mg DAILY PO ; Start 02/03/20 at 09:00; Status UNV Non-Formulary Medication (Insulin Aspart (Novolog)) 25 unit TIDWMEALS SQ ; Start 02/02/20 at 17:00; Status UNV Non-Formulary Medication (Insulin Glargine,Hum.rec.anlog (Lantus Solostar)) 80 unit QHS SQ ; Start 02/02/20 at 21:00; Status UNV Non-Formulary Medication (Isosorbide Dinitrate ) 20 mg DAILY PO ; Start 02/03/20 at 09:00; Status UNV Meclizine HCl (Antivert) 25 mg PRN Q6HRS PRN PO NAUSEAS; Start 02/02/20 at 17:45 Metformin HCl (Glucophage) 1,000 mg BIDWMEALS PO ; Start 02/02/20 at 17:00 Ketotifen Fumarate (Zaditor) 1 drop BID OU Last administered on 02/03/20at 00:07; Start 02/02/20 at 21:00 Pantoprazole Sodium (PROTONIX VIAL for IV PUSH) 40 mg DAILYAC IVP Last administered on 02/03/20at 07:55; Start 02/03/20 at 07:30 Ondansetron HCl (Zofran Odt) 4 mg PRN Q8HRS PRN PO NAUSEA/VOMITING, 1ST CHOICE PO; Start 02/02/20 at 17:45 Sumatriptan Succinate (Imitrex) 50 mg PRN BID PRN PO MIGRAINE HEADACHE; Start 02/02/20 at 17:45 Non-Formulary Medication (Terazosin Hcl ) 2 cap QHS PO ; Start 02/02/20 at 21:00; Status UNV Venlafaxine HCl (Effexor) 150 mg BID PO Last administered on 02/03/20at 07:56; Start 02/02/20 at 21:00 Fentanyl Citrate 30 ml @ 0 mls/hr CONT PRN IV SEE PROTOCOL Last administered on 02/02/20at 20:22; Start 02/02/20 at 16:30 Propofol 100 ml @ 0 mls/hr CONT PRN IV SEE PROTOCOL Last administered on 02/03/20at 07:58; Start 02/02/20 at 16:30 Fentanyl Citrate (Fentanyl 2ml Vial) 25 mcg PRN Q1HR PRN IV SEE COMMENTS; Start 02/02/20 at 16:30 Fentanyl Citrate (Fentanyl 2ml Vial) 50 mcg PRN Q1HR PRN IV SEE COMMENTS; Start 02/02/20 at 16:30 Chlorhexidine Gluconate (Peridex) 15 ml BID MM Last administered on 02/03/20at 07:56; Start 02/02/20 at 21:00 Morphine Sulfate (Morphine Sulfate) 2 mg PRN Q1HR PRN IV SEE COMMENTS.; Start 02/02/20 at 16:30 Morphine Sulfate (Morphine Sulfate) 4 mg PRN Q1HR PRN IV SEE COMMENTS.; Start 02/02/20 at 16:30 Midazolam HCl (Versed) 1 mg PRN Q30MIN PRN IV SEE COMMENTS.; Start 02/02/20 at 16:30 Piperacillin Sod/ Tazobactam Sod 4.5 gm/Sodium Chloride 100 ml @ 200 mls/hr 1X ONCE IV Last administered on 02/02/20at 17:03; Start 02/02/20 at 16:30; Stop 02/02/20 at 16:59; Status DC Azithromycin 250 ml @ 250 mls/hr 1X ONCE IV Last administered on 02/02/20at 17:40; Start 02/02/20 at 16:30; Stop 02/02/20 at 17:34; Status DC Dexamethasone Sodium Phosphate (Decadron) 10 mg 1X ONCE IVP Last administered on 02/02/20at 16:54; Start 02/02/20 at 16:30; Stop 02/02/20 at 16:33; Status DC Midazolam HCl (Versed) 5 mg 1X ONCE IV Last administered on 02/02/20at 16:35; Start 02/02/20 at 16:45; Stop 02/02/20 at 16:46; Status DC Insulin Human Regular (HumuLIN R VIAL) 8 unit 1X ONCE SQ Last administered on 02/02/20at 16:51; Start 02/02/20 at 16:45; Stop 02/02/20 at 16:46; Status DC Sodium Chloride 1,000 ml @ 500 mls/hr Q2H IV Last administered on 02/02/20at 18:33; Start 02/02/20 at 16:36; Stop 02/02/20 at 18:35; Status DC Insulin Human Regular 100 unit/ Sodium Chloride 101 ml @ 0 mls/hr CONT PRN PRN IV PER PROTOCOL Last administered on 02/03/20at 02:08; Start 02/02/20 at 16:45; Stop 02/03/20 at 02:31; Status DC Insulin Human Regular 100 ml @ As Directed STK-MED ONCE IV ; Start 02/02/20 at 16:41; Stop 02/02/20 at 16:41; Status DC Etomidate (Amidate) 20 mg 1X ONCE IV ; Start 02/02/20 at 17:15; Stop 02/02/20 at 17:22; Status DC Rocuronium Andreas (Zemuron) 50 mg 1X ONCE IV ; Start 02/02/20 at 17:15; Stop 02/02/20 at 17:34; Status DC Piperacillin Sod/ Tazobactam Sod 3.375 gm/Sodium Chloride 50 ml @ 100 mls/hr Q6HRS IV Last administered on 02/03/20at 06:09; Start 02/03/20 at 00:00 Sodium Chloride 1,000 ml @ 250 mls/hr Q4H IV Last administered on 02/02/20at 18:43; Start 02/02/20 at 18:45; Stop 02/02/20 at 22:40; Status DC Pantoprazole Sodium (PROTONIX VIAL for IV PUSH) 40 mg 1X ONCE IVP Last administered on 02/02/20at 22:47; Start 02/02/20 at 20:15; Stop 02/02/20 at 20:40; Status DC Labetalol HCl (Normodyne Iv Push) 10 mg PRN Q4HRS PRN IVP HYPERTENSION; Start 02/02/20 at 20:15 Dextrose/Sodium Chloride 1,000 ml @ 250 mls/hr Q4H IV Last administered on 02/03/20at 07:59; Start 02/02/20 at 22:45 Insulin Human Regular 100 unit/ Sodium Chloride 101 ml @ 0 mls/hr CONT PRN IV SEE I/O RECORD; Start 02/03/20 at 02:15 Potassium Chloride/Water 100 ml @ 100 mls/hr PRN Q1HR PRN IV SEE COMMENTS; Start 02/03/20 at 05:00 Potassium Chloride/Water 100 ml @ 100 mls/hr Q1H IV Last administered on 02/03/20at 07:58; Start 02/03/20 at 05:00; Stop 02/03/20 at 08:59; Status DC Insulin Glargine (Lantus Syringe) 18 unit BID SQ ; Start 02/03/20 at 09:00 Insulin Human Lispro (HumaLOG) 0-9 UNITS Q6HRS SQ ; Start 02/03/20 at 12:00 Dextrose (Dextrose 50%-Water Syringe) 12.5 gm PRN Q15MIN PRN IV SEE COMMENTS; Start 02/03/20 at 06:15 Active Scripts Active Aspirin 325 Mg Tablet 325 Mg PO DAILY [id number] 50-325-40 (Butalb/Acetaminophen/Caffeine) 1 Each Tablet 1-2 Tab PO PRN Q4HRS PRN MDD 6 tablets 2 Days Ondansetron Odt (Ondansetron) 4 Mg Tab.rapdis 1 Tab PO PRN Q6-8HRS PRN [id number] 50-325-40 (Butalb/Acetaminophen/Caffeine) 1 Each Tablet 1 Each PO Q6HRS PRN Reported Venlafaxine Hcl Er (Venlafaxine Hcl) 150 Mg Tab.er.24 1 Tab PO BID Novolog (Insulin Aspart) 100 Unit/1 Ml Cartridge 25 Unit SQ TIDWMEALS Metformin Hcl 1,000 Mg Tablet 1,000 Mg PO BIDWMEALS Zofran (Ondansetron Hcl) 4 Mg Tablet 1 Tab PO Q6HRS Terazosin Hcl 2 Mg Capsule 2 Cap PO QHS Lantus Solostar (Insulin Glargine,Hum.rec.anlog) 100 Unit/1 Ml Insuln.pen 80 Unit SQ QHS Metoprolol Tartrate 50 Mg Tablet 1 Tab PO BID Omeprazole 20 Mg Capsule.dr 20 Mg PO BID Lisinopril 40 Mg Tablet 1 Tab PO DAILY Imitrex (Sumatriptan Succinate) 50 Mg Tablet 50 Mg PO PRN BID PRN Hydrochlorothiazide Tablet (Hydrochlorothiazide) 12.5 Mg Tablet 25 Mg PO DAILY Meclizine Hcl 25 Mg Tablet 25 Mg PO PRN TID PRN 90 Days Patanol (Olopatadine Hcl) 5 Ml Drops 1 Drop EACHEYE BID Atorvastatin Calcium 20 Mg Tablet 1 Tab PO DAILY Isosorbide Mononitrate 20 Mg Tablet 20 Mg PO BID Amlodipine Besylate 10 Mg Tablet 10 Mg PO HS Isosorbide Dinitrate 30 Mg Tablet 20 Mg PO DAILY Hydrochlorothiazide Tablet (Hydrochlorothiazide) 25 Mg Tablet 25 Mg PO DAILY Vitals/I & O Vital Sign - Last 24 Hours 02/02/20 02/02/20 02/02/20 02/02/20 15:33 16:04 16:05 16:32 Temp 98.0 98.0 Pulse 150 89 80 Resp 48 16 16 B/P (MAP) 195/108 (137) Pulse Ox 88 98 97 98 O2 Delivery NonRebreather Mask Ventilator O2 Flow Rate 15.0 02/02/20 02/02/20 02/02/20 02/02/20 16:34 16:37 16:44 16:51 Pulse 148 142 138 Resp 25 28 25 27 Pulse Ox 95 95 94 94 O2 Delivery Ventilator 02/02/20 02/02/20 02/02/20 02/02/20 17:07 17:22 17:37 17:52 Pulse 132 138 144 146 Resp 31 31 30 29 Pulse Ox 94 94 93 95 02/02/20 02/02/20 02/02/20 02/02/20 18:15 19:00 20:00 20:00 Temp 98.4 98.4 98.4 98.4 Pulse 112 134 124 Resp 20 28 27 B/P (MAP) 91/60 (70) 177/107 (130) 150/95 (113) Pulse Ox 92 97 97 O2 Delivery Ventilator Ventilator Ventilator Mechanical Ventilator 02/02/20 02/02/20 02/02/20 02/02/20 20:51 20:52 21:00 22:00 Pulse 117 112 Resp 26 B/P (MAP) 173/105 (127) 173/103 (126) Pulse Ox 98 98 98 98 O2 Delivery Ventilator Ventilator Ventilator Ventilator O2 Flow Rate 15.0 02/02/20 02/02/20 02/02/20 02/02/20 22:15 22:46 22:48 23:00 Pulse 110 111 110 Resp 26 B/P (MAP) 172/107 172/107 177/108 (131) Pulse Ox 98 96 O2 Delivery Ventilator Ventilator 02/02/20 02/02/20 02/02/20 02/03/20 23:40 23:59 23:59 00:30 Temp 98.5 98.5 Pulse 111 90 Resp B/P (MAP) 172/107 187/108 (134) Pulse Ox 93 98 O2 Delivery Mechanical Ventilator Ventilator Ventilator 02/03/20 02/03/20 02/03/20 02/03/20 01:00 02:00 03:00 04:00 Pulse 89 88 93 Resp 25 B/P (MAP) 132/70 (90) 130/74 (92) 142/78 (99) Pulse Ox 96 96 95 O2 Delivery Ventilator Ventilator Ventilator Mechanical Ventilator 02/03/20 02/03/20 02/03/20 02/03/20 04:00 05:00 05:05 06:00 Temp 99.4 99.4 Pulse 87 81 78 Resp 25 25 23 B/P (MAP) 140/75 (96) 139/84 (102) 125/77 (93) Pulse Ox 95 95 94 94 O2 Delivery Ventilator Ventilator Ventilator Ventilator 02/03/20 02/03/20 02/03/20 02/03/20 07:00 07:56 08:00 08:00 Temp 97.7 97.7 Pulse 68 78 67 Resp 23 23 B/P (MAP) 134/76 (95) 131/79 132/78 (96) Pulse Ox 94 94 O2 Delivery Ventilator Mechanical Ventilator Ventilator 02/03/20 02/03/20 08:30 09:00 Pulse 68 Resp 24 B/P (MAP) 136/78 (97) Pulse Ox 94 94 O2 Delivery Ventilator Ventilator Intake and Output 02/02/20 02/02/20 02/03/20 15:00 23:00 07:00 Intake Total 3132 ml 1766.0 ml Output Total 360 ml 420 ml Balance 2772 ml 1346.0 ml RENU TAI MD Feb 03, 2020 09:15
[2020-02-03] MEDS: INSULIN GLARGINE SYRINGE. SQ SCH ×2 (09:17→21:59)
--- NOTE | 2020-02-03 10:13 | NUR ---
SS following for discharge planning. SS reviewed pt chart and discussed with pt RN. Pt is from home with family and is currently on the vent at 80% and peep of 8. Pt is COVID19 positive. Pt on IV Zosyn. SS will continue to follow for discharge planning.
[2020-02-03] MEDS ORDERED: IV 1/2 NORMAL SALINE 1,000 ML IV ONE (11:30)
[2020-02-03] MEDS: INSULIN LISPRO 300 UNITS/3 ML VIAL. SQ SCH ×3 (12:00→23:45)
--- NOTE | 2020-02-03 12:22 | CONS ---
DATE OF CONSULTATION: PULMONARY CONSULTATION ATTENDING PHYSICIAN: Dr. Felix. REASON FOR CONSULTATION: Respiratory failure, COVID pneumonia. HISTORY OF PRESENT ILLNESS: The patient is a 49-year-old male from [facility]. He has history of diabetes, hypertension. He has prior history of CVA and peripheral neuropathy and coronary artery disease. He was brought to the hospital after he was noted to be obtunded. He was intubated in the ER and sedated. His arterial blood gases reveal a pH of 7.01, pCO2 of 37 and a pO2 of 118 with a bicarbonate of 9 only. The patient's blood sugars were 649. His bicarbonate was 10 on admission on the chemistries and he was started on DKA protocol, started on insulin. The patient had a CT head done on admission, which showed multiple interval infarcts, likely reflecting chronic infarcts and subacute component was difficult to rule out. He came back COVID positive. At present, he is on assist control mode, 80% FiO2 and 8 of PEEP. His ABGs obtained this morning showed a pH of 7.37, pCO2 of 37 and a pO2 of 66 on 80% FiO2. He is intubated and sedated. His chest x-ray showing infiltrates, which are extensive and more peripheral dominant. I have been asked to see him for further evaluation. PAST MEDICAL HISTORY: Significant for lacunar infarct in 2019, history of CVA, peripheral neuropathy, CAD, hypertension, fibromyalgia and diabetes. PAST SURGICAL HISTORY: No recent surgery. ALLERGIES: None. MEDICATIONS: Reviewed as listed in the MRAD including antibiotic Zosyn and heparin for DVT prophylaxis. REVIEW OF SYSTEMS: Unable to obtain from the patient. SOCIAL HISTORY: Unable to obtain. PHYSICAL EXAMINATION: GENERAL: Intubated and sedated. VITAL SIGNS: Blood pressure 134/72, pulse ox 96% on current FiO2. His T-max is 99.5. Visual exam done due to COVID-19 pandemic. He is sedated. No obvious respiratory distress. ABDOMEN: Mildly obese. EXTREMITIES: With no rash. LABORATORY DATA: Reviewed. Sodium 147, potassium 4.4, bicarbonate 10, BUN 35 and a creatinine of 1.9 on admission. His numbers have improved. His BUN is now 26 and a creatinine of 1.7. Sodium is 150. Toxicology screen is positive for barbiturates and benzos. INR 1.2. White cell count 13.3, hemoglobin 13.8 and platelets are 215. IMPRESSION: 1. Acute hypoxic respiratory failure secondary to COVID-19 pneumonia and acute respiratory distress syndrome clinically. 2. COVID-19 pneumonia with sepsis. 3. Abnormal chest x-ray with diffuse alveolar infiltrates and somewhat peripheral location. We will monitor closely. Cannot exclude any aspiration pneumonia. 4. 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 5. Diabetic ketoacidosis, now anion gap closed and being monitored by PCP. 6. Hypernatremia, still likely volume contraction. Currently on IV fluids. RECOMMENDATIONS: 1. Continue with present assist control mode and follow ABGs and make necessary adjustments. 2. Broad-spectrum antibiotics. 3. Monitor clinical course. 4. Continue IV hydration. Follow renal function. 5. Spoke with son. He agrees with convalescent plasma. 6. Due to DKA, I would withhold steroids at present unless blood sugars are under control. 7. We may consider anti-IL6 inhibitor if no clinical improvement or increasing inflammatory markers. 8. DVT and stress ulcer prophylaxis. 9. Discussed with RN and RT. /Son 10. Critical care time 39 minutes. IGNACIO PUTNAM MD DR: SARA/olivier JOB#: [id number] / [id number] COSME
[2020-02-03] MEDS: ATORVASTATIN CALCIUM 20 MG TABLET PO SCH (21:53)
[2020-02-03] MEDS: amLODIPine BESYLATE 10 MG TABLET PO SCH (21:55)
[2020-02-04] VITALS (27 sets, daily range): BP systolic 92–189; BP diastolic 52–102
[2020-02-04] MEDS: PROPOFOL 100 ML IV PRN ×5 (00:25→20:27)
[2020-02-04 04:06] LABS: BASO % 0 % (0-3); EOS # 0.2 x10^3/uL (0.0-0.7); EOS % 2 % (0-3); HEMATOCRIT 46.2 % (39.0-53.0); HEMOGLOBIN 15.4 g/dL (13.0-17.5); LYMPH # 0.6 x10^3/uL (1.0-4.8); LYMPH % 6 % (24-48); MEAN CORPUSCULAR HEMOGLOBIN 29 pg (25-35); MEAN CORPUSCULAR HGB CONC 33 g/dL (31-37); MEAN CORPUSCULAR VOLUME 88 fL (79-100); MONO # 0.4 x10^3/uL (0.0-1.1); MONO % 4 % (0-9); NEUT # 9.5 x10^3/uL (1.8-7.7); NEUT % 88 % (31-73); PLATELET COUNT 180 x10^3/uL (140-400); RED BLOOD COUNT 5.27 x10^6/uL (4.30-5.70); RED CELL DISTRIBUTION WIDTH 14.3 % (11.5-14.5); WHITE BLOOD COUNT 10.8 x10^3/uL (4.0-11.0)
[2020-02-04 05:09] LABS: ALBUMIN 2.2 g/dL (3.4-5.0); ALBUMIN/GLOBULIN RATIO 0.5 (1.0-1.7); CALCIUM 8.8 mg/dL (8.5-10.1); CREATININE 1.3 mg/dL (0.7-1.3); GFR 71.6; POTASSIUM 3.4 mmol/L (3.5-5.1); TOTAL BILIRUBIN 0.3 mg/dL (0.2-1.0); TOTAL PROTEIN 6.9 g/dL (6.4-8.2)
[2020-02-04] MEDS: PIPERACILLIN/TAZOBACTAM 3.375 GM in IV NORMAL SALINE 50ML 50 ML IV SCH ×4 (05:25→23:38)
[2020-02-04] MEDS: INSULIN LISPRO 300 UNITS/3 ML VIAL. SQ SCH ×4 (05:31→23:58)
[2020-02-04] MEDS: HEPARIN for SUB-Q USE 5,000 UNIT/ML VIAL. SQ SCH ×2 (05:32→14:00)
--- NOTE | 2020-02-04 07:30 | NUR ---
Pt spo2 88%, orderd to increase peep to 10 and fi02 to 100%, Norcuron prn. BP/HR stable. 0900 norcuron given, o2 sat increased 93-96% on 100% fi02 and 10 peep. Pt unstable to turns, able to off load every 2hrs.
[2020-02-04 07:45] LABS: BASE EXCESS ABG -2 mmol/L (-3-3); HCO3 ABG 22 mmol/L (21-28); PCO2 ABG 34 mmHg (35-46); PO2 ABG 59 mmHg (75-108); SAT O2 ABG 91 % (92-99)
[2020-02-04 07:49] LABS: FIO2 ABG 80
[2020-02-04] MEDS: PANTOPRAZOLE IV PUSH 40 MG VIAL. IVP SCH (07:57)
[2020-02-04] MEDS: ASPIRIN 325 MG TABLET PO SCH (07:57)
[2020-02-04] MEDS: DOCUSATE SODIUM 100 MG CAPSULE. PO SCH (07:58)
[2020-02-04] MEDS: CHLORHEXIDINE 0.12% 15 ML MOUTHWASH. MM SCH ×2 (07:58→21:35)
[2020-02-04] MEDS: KETOTIFEN FUMARATE 0.025% OPHTH SOLUTION BOTTLE. OU SCH ×2 (07:58→21:37)
[2020-02-04] MEDS: metFORMIN 500 MG TABLET PO SCH ×2 (07:58→11:53)
[2020-02-04] MEDS: VENLAFAXINE 75 MG TABLET. PO SCH ×2 (07:58→21:36)
[2020-02-04] MEDS: VECURONIUM BOLUS 10 MG VIAL. IV PRN ×2 (07:58→12:09)
[2020-02-04] MEDS: SENNOSIDES/DOCUSATE 8.6/50MG TABLET. PO SCH ×2 (07:59→21:36)
[2020-02-04] MEDS: INSULIN GLARGINE SYRINGE. SQ SCH ×2 (08:00→21:37)
[2020-02-04] MEDS: METOPROLOL TART IMMED RELEASE 50 MG TABLET. PO SCH ×2 (09:00→21:35)
[2020-02-04] MEDS: hydroCHLOROthiazide 25 MG TABLET PO SCH (09:00)
[2020-02-04] MEDS: ISOSORBIDE DINITRATE 10 MG TABLET. PO SCH ×3 (09:00→21:36)
[2020-02-04] MEDS: LISINOPRIL 20 MG TABLET PO SCH (09:00)
[2020-02-04] MEDS: ELECTROLYTE (ICU) PROTOCOL. MC SCH (09:00)
--- NOTE | 2020-02-04 09:06 | PDOC ---
PROGRESS NOTES History of Present Illness History of Present Illness VTE Prophylaxis Ordered VTE Prophylaxis Devices: No VTE Pharmacological Prophylaxi: Yes IMPRESSION Assessment/Plan Toxic and metabolic encephalopathy Sepsis with pulmonary focus most likely Suspect gram negative organism pneumonia POS COVID 19 infection DKA lactic acidosis secondary to a combination of metabolic and infectious process ongoing Acute renal failure, vasomotor etiology most likely Hypernatremia Severe dehydration History of essential hypertension History of CVA Diabetes mellitus type 2 insulin requiring Severe anion gap metabolic acidosis Plan: isolation admit to ICU VENT SUPPORT fluid resuscitation DKA protocol Broad spectrum antibiotics for pneumonic process POS COVID 19 infection follow BMP every 4 hours. supportive measures vent management, will consult pulmonology for assistance. further recommendations based on clinical course DVT prophylaxis: heparin 02/03 worsening hypoxia AC mode 100%FIO2/ 9 PEEP Justicifation of Admission Dx: Justicifation of Admission Dx: Justifications for Admission: Justification of Admission Dx: Yes Sepsis: Altered Mental Status 37 MIN CC TIME Vitals Vitals Vital Signs Date Time Temp Pulse Resp B/P (MAP) Pulse Ox O2 Delivery O2 Flow Rate FiO2 02/04/20 08:52 94 Ventilator 02/04/20 08:00 99.6 85 22 175/93 (120) 99.6 02/03/20 13:11 15.0 Physical Exam Physical Exam LUNGS: Coarse breath sounds HEART: RRR, S1, S2 present. Peripheral pulses intact ABDOMEN: Soft, non distended. Positive bowel sounds. EXTREMITIES: Without any cyanosis. NEUROLOGIC: Sedated PSYCHIATRIC: uanble to obtain due to acute process . SKIN: No ulcerations General: Cooperative Lungs: Clear, Other Extremities: No cyanosis Labs LABS CHEST AP ONLY 02/04/2020 9:23 AM INDICATION: Line placement COMPARISON: 02/02/2020 TECHNIQUE: Portable frontal view of the chest is provided. FINDINGS: The cardiomediastinal silhouette is within normal limits. Right IJ central venous catheter is identified with distal tip projecting over the cavoatrial junction. Endotracheal tube and nasogastric tube are in similar position. There is mixed interstitial and alveolar airspace disease with improved aeration of the left lung base compared to prior examination. No pleural effusions, pulmonary vascular congestion or pneumothorax. No suspicious osseous abnormality. IMPRESSION: Right IJ central venous catheter is identified with the distal tip projecting over the cavoatrial junction. No pneumothorax. Improved aeration of lungs with persistent bilateral mixed interstitial and alveolar airspace disease. Electronically signed by: Colby Walton MD (02/04/2020 10:28 AM) [facility] DICTATED and SIGNED BY: COLBY WALTON MD DATE: 02/04/20 1028 Laboratory Tests Test 02/03/20 10:58 02/03/20 16:49 02/03/20 21:57 02/03/20 23:42 Glucose (Fingerstick) 159 mg/dL (70-99) 241 mg/dL (70-99) 253 mg/dL (70-99) 275 mg/dL (70-99) Test 02/04/20 03:20 02/04/20 05:27 02/04/20 07:30 White Blood Count 10.8 x10^3/uL (4.0-11.0) Red Blood Count 5.27 x10^6/uL (4.30-5.70) Hemoglobin 15.4 g/dL (13.0-17.5) Hematocrit 46.2 % (39.0-53.0) Mean Corpuscular Volume 88 fL (79-100) Mean Corpuscular Hemoglobin 29 pg (25-35) Mean Corpuscular Hemoglobin Concent 33 g/dL (31-37) Red Cell Distribution Width 14.3 % (11.5-14.5) Platelet Count 180 x10^3/uL (140-400) Neutrophils (%) (Auto) 88 % (31-73) Lymphocytes (%) (Auto) 6 % (24-48) Monocytes (%) (Auto) 4 % (0-9) Eosinophils (%) (Auto) 2 % (0-3) Basophils (%) (Auto) 0 % (0-3) Neutrophils # (Auto) 9.5 x10^3/uL (1.8-7.7) Lymphocytes # (Auto) 0.6 x10^3/uL (1.0-4.8) Monocytes # (Auto) 0.4 x10^3/uL (0.0-1.1) Eosinophils # (Auto) 0.2 x10^3/uL (0.0-0.7) Basophils # (Auto) 0.0 x10^3/uL (0.0-0.2) Sodium Level 148 mmol/L (136-145) Potassium Level 3.4 mmol/L (3.5-5.1) Chloride Level 111 mmol/L (98-107) Carbon Dioxide Level 24 mmol/L (21-32) Anion Gap 13 (6-14) Blood Urea Nitrogen 19 mg/dL (8-26) Creatinine 1.3 mg/dL (0.7-1.3) Estimated GFR (Cockcroft-Gault) 71.6 BUN/Creatinine Ratio 15 (6-20) Glucose Level 199 mg/dL (70-99) Calcium Level 8.8 mg/dL (8.5-10.1) Total Bilirubin 0.3 mg/dL (0.2-1.0) Aspartate Amino Transf (AST/SGOT) 30 U/L (15-37) Alanine Aminotransferase (ALT/SGPT) 12 U/L (16-63) Alkaline Phosphatase 80 U/L (46-116) Total Protein 6.9 g/dL (6.4-8.2) Albumin 2.2 g/dL (3.4-5.0) Albumin/Globulin Ratio 0.5 (1.0-1.7) Glucose (Fingerstick) 190 mg/dL (70-99) O2 Saturation 91 % (92-99) Arterial Blood pH 7.43 (7.35-7.45) Arterial Blood pCO2 at Patient Temp 34 mmHg (35-46) Arterial Blood pO2 at Patient Temp 59 mmHg (75-108) Arterial Blood HCO3 22 mmol/L (21-28) Arterial Blood Base Excess -2 mmol/L (-3-3) FiO2 80 Assessment and Plan Assessmemt and Plan Problems Medical Problems: (1) Acute metabolic encephalopathy Status: Acute (2) Acute renal insufficiency Status: Acute (3) DKA (diabetic ketoacidoses) Status: Acute (4) Pneumonia Status: Acute (5) Respiratory failure with hypoxia Status: Acute (6) Suspected 2019 novel coronavirus infection Status: Acute Comment Review of Relevant I have reviewed the following items myra (where applicable) has been applied. Labs Laboratory Tests Test 02/02/20 15:44 02/02/20 15:45 02/02/20 19:58 02/02/20 20:10 O2 Saturation 96 % (92-99) Arterial Blood pH 7.01 (7.35-7.45) Arterial Blood pCO2 at Patient Temp 37 mmHg (35-46) Arterial Blood pO2 at Patient Temp 118 mmHg (75-108) Arterial Blood HCO3 9 mmol/L (21-28) Arterial Blood Base Excess -21 mmol/L (-3-3) Oxyhemoglobin 95.1 % Methemoglobin 0.5 % (0.0-1.9) Carbon Monoxide, Quantitative 0.2 % (0.0-1.9) FiO2 100% vent White Blood Count 14.7 x10^3/uL (4.0-11.0) Red Blood Count 5.70 x10^6/uL (4.30-5.70) Hemoglobin 17.3 g/dL (13.0-17.5) Hematocrit 51.8 % (39.0-53.0) Mean Corpuscular Volume 91 fL (79-100) Mean Corpuscular Hemoglobin 30 pg (25-35) Mean Corpuscular Hemoglobin Concent 33 g/dL (31-37) Red Cell Distribution Width 14.4 % (11.5-14.5) Platelet Count 308 x10^3/uL (140-400) Neutrophils (%) (Auto) 87 % (31-73) Lymphocytes (%) (Auto) 5 % (24-48) Monocytes (%) (Auto) 8 % (0-9) Eosinophils (%) (Auto) 0 % (0-3) Basophils (%) (Auto) 0 % (0-3) Neutrophils # (Auto) 12.8 x10^3/uL (1.8-7.7) Lymphocytes # (Auto) 0.7 x10^3/uL (1.0-4.8) Monocytes # (Auto) 1.2 x10^3/uL (0.0-1.1) Eosinophils # (Auto) 0.0 x10^3/uL (0.0-0.7) Basophils # (Auto) 0.1 x10^3/uL (0.0-0.2) Segmented Neutrophils % 79 % (35-66) Band Neutrophils % 9 % (0-9) Lymphocytes % 5 % (24-48) Atypical Lymphocytes % (Manual) 1 % (0-0) Monocytes % 5 % (0-10) Metamyelocytes % 1 % (0-0) Platelet Estimate Adequate (ADEQUATE) Prothrombin Time 14.9 SEC (11.7-14.0) Prothromb Time International Ratio 1.2 (0.8-1.1) Activated Partial Thromboplast Time 20 SEC (24-38) Sodium Level 147 mmol/L (136-145) 152 mmol/L (136-145) Potassium Level 4.4 mmol/L (3.5-5.1) 4.1 mmol/L (3.5-5.1) Chloride Level 102 mmol/L (98-107) 113 mmol/L (98-107) Carbon Dioxide Level 10 mmol/L (21-32) 15 mmol/L (21-32) Anion Gap 35 (6-14) 24 (6-14) Blood Urea Nitrogen 35 mg/dL (8-26) 33 mg/dL (8-26) Creatinine 1.9 mg/dL (0.7-1.3) 1.8 mg/dL (0.7-1.3) Estimated GFR (Cockcroft-Gault) 46.2 49.2 BUN/Creatinine Ratio 18 (6-20) Glucose Level 649 mg/dL (70-99) 374 mg/dL (70-99) Plasma/Serum Osmolality 367 mOsmol/kg (275-295) Lactic Acid Level 4.0 mmol/L (0.4-2.0) 1.5 mmol/L (0.4-2.0) Calcium Level 10.4 mg/dL (8.5-10.1) 8.4 mg/dL (8.5-10.1) Magnesium Level 2.7 mg/dL (1.8-2.4) 2.0 mg/dL (1.8-2.4) Ferritin 685 ng/mL (26-388) Total Bilirubin 0.6 mg/dL (0.2-1.0) Aspartate Amino Transf (AST/SGOT) 30 U/L (15-37) Alanine Aminotransferase (ALT/SGPT) 17 U/L (16-63) Alkaline Phosphatase 95 U/L (46-116) Ammonia 16 mcmol/L (11-34) Lactate Dehydrogenase 631 U/L (85-227) Creatine Kinase 293 U/L (39-308) Creatine Kinase MB (Mass) 3.1 ng/mL (0.0-3.6) Creatine Kinase MB Relative Index 1.1 % (0-4) Troponin I Quantitative < 0.017 ng/mL (0.000-0.055) VM-[id number]-[id number]-Type Natriuretic Peptide 314 pg/mL (0-124) Total Protein 8.7 g/dL (6.4-8.2) Albumin 3.0 g/dL (3.4-5.0) 2.4 g/dL (3.4-5.0) Albumin/Globulin Ratio 0.5 (1.0-1.7) Salicylates Level 6.6 mg/dL (2.8-20.0) Salicylate Last Dose Date Unk Salicylate Last Dose Time Unk Acetaminophen Level < 2 mcg/ml (10-30) Acetaminophen Last Dose Date Unk Acetaminophen Last Dose Time Unk Ethyl Alcohol Level < 10 mg/dL (0-10) Coronavirus (COVID-19)(PCR) Detected (NOT DETECT.) Glucose (Fingerstick) 389 mg/dL (70-99) Phosphorus Level 5.8 mg/dL (2.6-4.7) Test 02/02/20 21:30 02/02/20 22:25 02/02/20 22:36 02/02/20 23:45 Glucose (Fingerstick) 287 mg/dL (70-99) 236 mg/dL (70-99) O2 Saturation 98 % (92-99) Arterial Blood pH 7.27 (7.35-7.45) Arterial Blood pCO2 at Patient Temp 39 mmHg (35-46) Arterial Blood pO2 at Patient Temp 124 mmHg (75-108) Arterial Blood pO2 (Temp corrected) mmHg Arterial Blood HCO3 17 mmol/L (21-28) Arterial Blood Base Excess -9 mmol/L (-3-3) Urine Collection Type U cath Urine Color Yellow Urine Clarity Turbid Urine pH 5.5 (<5.0-8.0) Urine Specific [place] 1.025 (1.000-1.030) Urine Protein 100 mg/dL (NEG-TRACE) Urine Glucose (UA) 500 mg/dL (NEG) Urine Ketones (Stick) 40 mg/dL (NEG) Urine Blood Small (NEG) Urine Nitrite Negative (NEG) Urine Bilirubin Large (NEG) Urine Urobilinogen Dipstick 1.0 mg/dL (0.2 mg/dL) Urine Leukocyte Esterase Negative (NEG) Urine RBC 1-2 /HPF (0-2) Urine WBC Occ /HPF (0-4) Urine Squamous Epithelial Cells Occ /LPF Urine Amorphous Sediment Present /HPF Urine Bacteria 0 /HPF (0-FEW) Urine Granular Casts Few /HPF Urine Mucus Slight /LPF Urine Opiates Screen Neg (NEG) Urine Methadone Screen Neg (NEG) Urine Barbiturates Pos (NEG) Urine Phencyclidine Screen Neg (NEG) Urine Amphetamine/Methamphetamine Neg (NEG) Urine Benzodiazepines Screen Pos (NEG) Urine Cocaine Screen Neg (NEG) Urine Cannabinoids Screen Neg (NEG) Urine Ethyl Alcohol Neg (NEG) Test 02/02/20 23:50 02/02/20 23:51 02/03/20 00:55 02/03/20 02:02 Sodium Level 151 mmol/L (136-145) Potassium Level 3.7 mmol/L (3.5-5.1) Chloride Level 114 mmol/L (98-107) Carbon Dioxide Level 21 mmol/L (21-32) Anion Gap 16 (6-14) Blood Urea Nitrogen 32 mg/dL (8-26) Creatinine 1.8 mg/dL (0.7-1.3) Estimated GFR (Cockcroft-Gault) 49.2 Glucose Level 278 mg/dL (70-99) Calcium Level 8.1 mg/dL (8.5-10.1) Phosphorus Level 2.6 mg/dL (2.6-4.7) Magnesium Level 2.0 mg/dL (1.8-2.4) Glucose (Fingerstick) 241 mg/dL (70-99) 246 mg/dL (70-99) 258 mg/dL (70-99) Test 02/03/20 02:58 02/03/20 03:50 02/03/20 04:04 02/03/20 05:14 Glucose (Fingerstick) 245 mg/dL (70-99) 207 mg/dL (70-99) 160 mg/dL (70-99) White Blood Count 13.3 x10^3/uL (4.0-11.0) Red Blood Count 4.69 x10^6/uL (4.30-5.70) Hemoglobin 13.8 g/dL (13.0-17.5) Hematocrit 41.1 % (39.0-53.0) Mean Corpuscular Volume 88 fL (79-100) Mean Corpuscular Hemoglobin 29 pg (25-35) Mean Corpuscular Hemoglobin Concent 34 g/dL (31-37) Red Cell Distribution Width 14.0 % (11.5-14.5) Platelet Count 215 x10^3/uL (140-400) Neutrophils (%) (Auto) 89 % (31-73) Lymphocytes (%) (Auto) 4 % (24-48) Monocytes (%) (Auto) 6 % (0-9) Eosinophils (%) (Auto) 0 % (0-3) Basophils (%) (Auto) 1 % (0-3) Neutrophils # (Auto) 11.8 x10^3/uL (1.8-7.7) Lymphocytes # (Auto) 0.6 x10^3/uL (1.0-4.8) Monocytes # (Auto) 0.8 x10^3/uL (0.0-1.1) Eosinophils # (Auto) 0.0 x10^3/uL (0.0-0.7) Basophils # (Auto) 0.1 x10^3/uL (0.0-0.2) Prothrombin Time 14.6 SEC (11.7-14.0) Prothromb Time International Ratio 1.2 (0.8-1.1) Sodium Level 150 mmol/L (136-145) Potassium Level 3.1 mmol/L (3.5-5.1) Chloride Level 115 mmol/L (98-107) Carbon Dioxide Level 23 mmol/L (21-32) Anion Gap 12 (6-14) Blood Urea Nitrogen 26 mg/dL (8-26) Creatinine 1.7 mg/dL (0.7-1.3) Estimated GFR (Cockcroft-Gault) 52.5 Glucose Level 222 mg/dL (70-99) Calcium Level 8.2 mg/dL (8.5-10.1) Test 02/03/20 06:23 02/03/20 08:08 02/03/20 08:30 02/03/20 10:58 Glucose (Fingerstick) 80 mg/dL (70-99) 108 mg/dL (70-99) 159 mg/dL (70-99) O2 Saturation 92 % (92-99) Arterial Blood pH 7.37 (7.35-7.45) Arterial Blood pCO2 at Patient Temp 35 mmHg (35-46) Arterial Blood pO2 at Patient Temp 66 mmHg (75-108) Arterial Blood HCO3 20 mmol/L (21-28) Arterial Blood Base Excess -5 mmol/L (-3-3) FiO2 80 Test 02/03/20 16:49 02/03/20 21:57 02/03/20 23:42 02/04/20 03:20 Glucose (Fingerstick) 241 mg/dL (70-99) 253 mg/dL (70-99) 275 mg/dL (70-99) White Blood Count 10.8 x10^3/uL (4.0-11.0) Red Blood Count 5.27 x10^6/uL (4.30-5.70) Hemoglobin 15.4 g/dL (13.0-17.5) Hematocrit 46.2 % (39.0-53.0) Mean Corpuscular Volume 88 fL (79-100) Mean Corpuscular Hemoglobin 29 pg (25-35) Mean Corpuscular Hemoglobin Concent 33 g/dL (31-37) Red Cell Distribution Width 14.3 % (11.5-14.5) Platelet Count 180 x10^3/uL (140-400) Neutrophils (%) (Auto) 88 % (31-73) Lymphocytes (%) (Auto) 6 % (24-48) Monocytes (%) (Auto) 4 % (0-9) Eosinophils (%) (Auto) 2 % (0-3) Basophils (%) (Auto) 0 % (0-3) Neutrophils # (Auto) 9.5 x10^3/uL (1.8-7.7) Lymphocytes # (Auto) 0.6 x10^3/uL (1.0-4.8) Monocytes # (Auto) 0.4 x10^3/uL (0.0-1.1) Eosinophils # (Auto) 0.2 x10^3/uL (0.0-0.7) Basophils # (Auto) 0.0 x10^3/uL (0.0-0.2) Sodium Level 148 mmol/L (136-145) Potassium Level 3.4 mmol/L (3.5-5.1) Chloride Level 111 mmol/L (98-107) Carbon Dioxide Level 24 mmol/L (21-32) Anion Gap 13 (6-14) Blood Urea Nitrogen 19 mg/dL (8-26) Creatinine 1.3 mg/dL (0.7-1.3) Estimated GFR (Cockcroft-Gault) 71.6 BUN/Creatinine Ratio 15 (6-20) Glucose Level 199 mg/dL (70-99) Calcium Level 8.8 mg/dL (8.5-10.1) Total Bilirubin 0.3 mg/dL (0.2-1.0) Aspartate Amino Transf (AST/SGOT) 30 U/L (15-37) Alanine Aminotransferase (ALT/SGPT) 12 U/L (16-63) Alkaline Phosphatase 80 U/L (46-116) Total Protein 6.9 g/dL (6.4-8.2) Albumin 2.2 g/dL (3.4-5.0) Albumin/Globulin Ratio 0.5 (1.0-1.7) Test 02/04/20 05:27 02/04/20 07:30 Glucose (Fingerstick) 190 mg/dL (70-99) O2 Saturation 91 % (92-99) Arterial Blood pH 7.43 (7.35-7.45) Arterial Blood pCO2 at Patient Temp 34 mmHg (35-46) Arterial Blood pO2 at Patient Temp 59 mmHg (75-108) Arterial Blood HCO3 22 mmol/L (21-28) Arterial Blood Base Excess -2 mmol/L (-3-3) FiO2 80 Laboratory Tests Test 02/03/20 10:58 02/03/20 16:49 02/03/20 21:57 02/03/20 23:42 Glucose (Fingerstick) 159 mg/dL (70-99) 241 mg/dL (70-99) 253 mg/dL (70-99) 275 mg/dL (70-99) Test 02/04/20 03:20 02/04/20 05:27 02/04/20 07:30 White Blood Count 10.8 x10^3/uL (4.0-11.0) Red Blood Count 5.27 x10^6/uL (4.30-5.70) Hemoglobin 15.4 g/dL (13.0-17.5) Hematocrit 46.2 % (39.0-53.0) Mean Corpuscular Volume 88 fL (79-100) Mean Corpuscular Hemoglobin 29 pg (25-35) Mean Corpuscular Hemoglobin Concent 33 g/dL (31-37) Red Cell Distribution Width 14.3 % (11.5-14.5) Platelet Count 180 x10^3/uL (140-400) Neutrophils (%) (Auto) 88 % (31-73) Lymphocytes (%) (Auto) 6 % (24-48) Monocytes (%) (Auto) 4 % (0-9) Eosinophils (%) (Auto) 2 % (0-3) Basophils (%) (Auto) 0 % (0-3) Neutrophils # (Auto) 9.5 x10^3/uL (1.8-7.7) Lymphocytes # (Auto) 0.6 x10^3/uL (1.0-4.8) Monocytes # (Auto) 0.4 x10^3/uL (0.0-1.1) Eosinophils # (Auto) 0.2 x10^3/uL (0.0-0.7) Basophils # (Auto) 0.0 x10^3/uL (0.0-0.2) Sodium Level 148 mmol/L (136-145) Potassium Level 3.4 mmol/L (3.5-5.1) Chloride Level 111 mmol/L (98-107) Carbon Dioxide Level 24 mmol/L (21-32) Anion Gap 13 (6-14) Blood Urea Nitrogen 19 mg/dL (8-26) Creatinine 1.3 mg/dL (0.7-1.3) Estimated GFR (Cockcroft-Gault) 71.6 BUN/Creatinine Ratio 15 (6-20) Glucose Level 199 mg/dL (70-99) Calcium Level 8.8 mg/dL (8.5-10.1) Total Bilirubin 0.3 mg/dL (0.2-1.0) Aspartate Amino Transf (AST/SGOT) 30 U/L (15-37) Alanine Aminotransferase (ALT/SGPT) 12 U/L (16-63) Alkaline Phosphatase 80 U/L (46-116) Total Protein 6.9 g/dL (6.4-8.2) Albumin 2.2 g/dL (3.4-5.0) Albumin/Globulin Ratio 0.5 (1.0-1.7) Glucose (Fingerstick) 190 mg/dL (70-99) O2 Saturation 91 % (92-99) Arterial Blood pH 7.43 (7.35-7.45) Arterial Blood pCO2 at Patient Temp 34 mmHg (35-46) Arterial Blood pO2 at Patient Temp 59 mmHg (75-108) Arterial Blood HCO3 22 mmol/L (21-28) Arterial Blood Base Excess -2 mmol/L (-3-3) FiO2 80 Microbiology 02/02/20 Blood Culture - Preliminary, Resulted NO GROWTH AFTER 1 DAY Medications Current Medications Sodium Chloride 1,000 ml @ 1,000 mls/hr 1X ONCE IV Last administered on 02/02/20at 16:48; Start 02/02/20 at 15:45; Stop 02/02/20 at 16:44; Status DC Etomidate (Amidate) 20 mg 1X ONCE IV Last administered on 02/02/20at 15:54; Start 02/02/20 at 15:45; Stop 02/02/20 at 15:52; Status DC Rocuronium [place] (Zemuron) 50 mg 1X ONCE IV Last administered on 02/02/20at 15:55; Start 02/02/20 at 15:45; Stop 02/02/20 at 15:52; Status DC Propofol 100 ml @ 0 mls/hr CONT PRN IV SEE PROTOCOL Last administered on 02/02/20at 16:33; Start 02/02/20 at 15:45; Stop 02/02/20 at 17:44; Status DC Chlorhexidine Gluconate (Peridex) 15 ml BID MM ; Start 02/02/20 at 21:00; Stop 02/02/20 at 17:39; Status DC Fentanyl Citrate (Fentanyl 2ml Vial) 100 mcg 1X ONCE IV Last administered on 02/02/20at 16:34; Start 02/02/20 at 16:15; Stop 02/02/20 at 16:16; Status DC Sodium Chloride 1,000 ml @ 1,000 mls/hr 1X ONCE IV Last administered on 02/02/20at 16:15; Start 02/02/20 at 16:15; Stop 02/02/20 at 17:20; Status DC Aspirin (Aspirin Rectal Supp) 300 mg 1X ONCE MD Last administered on 02/02/20at 16:35; Start 02/02/20 at 16:15; Stop 02/02/20 at 16:17; Status DC Acetaminophen (Tylenol) 650 mg PRN Q6HRS PRN PO Headaches, Temp > 101.5'; Start 02/02/20 at 16:15 Prochlorperazine Edisylate (Compazine) 5 mg PRN Q6HRS PRN IVP NAUSEA/VOMITING; Start 02/02/20 at 16:15 Prochlorperazine (Compazine) 25 mg PRN Q12HR PRN MD NAUSEA/VOMITING; Start 02/02/20 at 16:15 Info ([facility] Electrolyte Protocol) 1 ea DAILY MC ; Start 02/03/20 at 09:00 Heparin Sodium (Porcine) (Heparin Sodium) 5,000 unit Q8HRS SQ Last administered on 02/04/20at 05:32; Start 02/02/20 at 22:00 Sodium Chloride (Normal Saline Flush) 3 ml QSHIFT PRN IV AFTER MEDS AND BLOOD DRAWS; Start 02/02/20 at 16:15 Oxycodone/ Acetaminophen (Percocet 5/325) 1 tab PRN Q4HRS PRN PO MILD PAIN, 1ST CHOICE; Start 02/02/20 at 16:15 Morphine Sulfate (Morphine Sulfate) 2 mg PRN Q1HR PRN IV PAIN; Start 02/02/20 at 16:15 Senna/Docusate Sodium (Senna Plus) 1 tab BID PO ; Start 02/02/20 at 21:00 Docusate Sodium (Colace) 100 mg BID PO ; Start 02/02/20 at 21:00 Lactulose (Lactulose) 20 gm PRN Q12HR PRN PO CONSTIPATION; Start 02/02/20 at 16:15 Amlodipine Besylate (Norvasc) 10 mg HS PO Last administered on 02/03/20at 21:55; Start 02/02/20 at 21:00 Aspirin (Grover Aspirin) 325 mg DAILY PO Last administered on 02/04/20at 07:57; Start 02/03/20 at 09:00 Atorvastatin Calcium (Lipitor) 20 mg QHS PO Last administered on 02/03/20at 21:53; Start 02/02/20 at 21:00 Acetaminophen/ Butalbital/ Caffeine (Fioricet) 1 tab PRN Q6HRS PRN PO MIGRAINE HEADACHE; Start 02/02/20 at 16:15 Hydrochlorothiazide (Hydrodiuril) 25 mg DAILY PO ; Start 02/03/20 at 09:00 Isosorbide Dinitrate (Isordil) 10 mg TID PO Last administered on 02/03/20at 21:53; Start 02/02/20 at 21:00 Lisinopril (Prinivil) 40 mg DAILY PO Last administered on 02/03/20at 07:56; Start 02/03/20 at 09:00 Metoprolol Tartrate (Lopressor) 50 mg BID PO Last administered on 02/02/20at 22:48; Start 02/02/20 at 21:00 Non-Formulary Medication (Hydrochlorothiazide (Hydrochlorothiazide Tablet)) 25 mg DAILY PO ; Start 02/03/20 at 09:00; Status UNV Non-Formulary Medication (Insulin Aspart (Novolog)) 25 unit TIDWMEALS SQ ; Start 02/02/20 at 17:00; Status UNV Non-Formulary Medication (Insulin Glargine,Hum.rec.anlog (Lantus Solostar)) 80 unit QHS SQ ; Start 02/02/20 at 21:00; Status UNV Non-Formulary Medication (Isosorbide Dinitrate ) 20 mg DAILY PO ; Start 02/03/20 at 09:00; Status UNV Meclizine HCl (Antivert) 25 mg PRN Q6HRS PRN PO NAUSEAS; Start 02/02/20 at 17:45 Metformin HCl (Glucophage) 1,000 mg BIDWMEALS PO ; Start 02/02/20 at 17:00 Ketotifen Fumarate (Zaditor) 1 drop BID OU Last administered on 02/03/20at 21:58; Start 02/02/20 at 21:00 Pantoprazole Sodium (PROTONIX VIAL for IV PUSH) 40 mg DAILYAC IVP Last administered on 02/04/20at 07:57; Start 02/03/20 at 07:30 Ondansetron HCl (Zofran Odt) 4 mg PRN Q8HRS PRN PO NAUSEA/VOMITING, 1ST CHOICE PO; Start 02/02/20 at 17:45 Sumatriptan Succinate (Imitrex) 50 mg PRN BID PRN PO MIGRAINE HEADACHE; Start 02/02/20 at 17:45 Non-Formulary Medication (Terazosin Hcl ) 2 cap QHS PO ; Start 02/02/20 at 21:00; Status UNV Venlafaxine HCl (Effexor) 150 mg BID PO Last administered on 02/04/20at 07:58; Start 02/02/20 at 21:00 Fentanyl Citrate 30 ml @ 0 mls/hr CONT PRN IV SEE PROTOCOL Last administered on 02/04/20at 05:03; Start 02/02/20 at 16:30 Propofol 100 ml @ 0 mls/hr CONT PRN IV SEE PROTOCOL Last administered on 02/04/20at 05:54; Start 02/02/20 at 16:30 Fentanyl Citrate (Fentanyl 2ml Vial) 25 mcg PRN Q1HR PRN IV SEE COMMENTS; Start 02/02/20 at 16:30 Fentanyl Citrate (Fentanyl 2ml Vial) 50 mcg PRN Q1HR PRN IV SEE COMMENTS; Start 02/02/20 at 16:30 Chlorhexidine Gluconate (Peridex) 15 ml BID MM Last administered on 02/04/20at 07:58; Start 02/02/20 at 21:00 Morphine Sulfate (Morphine Sulfate) 2 mg PRN Q1HR PRN IV SEE COMMENTS.; Start 02/02/20 at 16:30 Morphine Sulfate (Morphine Sulfate) 4 mg PRN Q1HR PRN IV SEE COMMENTS.; Start 02/02/20 at 16:30 Midazolam HCl (Versed) 1 mg PRN Q30MIN PRN IV SEE COMMENTS.; Start 02/02/20 at 16:30 Piperacillin Sod/ Tazobactam Sod 4.5 gm/Sodium Chloride 100 ml @ 200 mls/hr 1X ONCE IV Last administered on 02/02/20at 17:03; Start 02/02/20 at 16:30; Stop 02/02/20 at 16:59; Status DC Azithromycin 250 ml @ 250 mls/hr 1X ONCE IV Last administered on 02/02/20at 17:40; Start 02/02/20 at 16:30; Stop 02/02/20 at 17:34; Status DC Dexamethasone Sodium Phosphate (Decadron) 10 mg 1X ONCE IVP Last administered on 02/02/20at 16:54; Start 02/02/20 at 16:30; Stop 02/02/20 at 16:33; Status DC Midazolam HCl (Versed) 5 mg 1X ONCE IV Last administered on 02/02/20at 16:35; Start 02/02/20 at 16:45; Stop 02/02/20 at 16:46; Status DC Insulin Human Regular (HumuLIN R VIAL) 8 unit 1X ONCE SQ Last administered on 02/02/20at 16:51; Start 02/02/20 at 16:45; Stop 02/02/20 at 16:46; Status DC Sodium Chloride 1,000 ml @ 500 mls/hr Q2H IV Last administered on 02/02/20at 18:33; Start 02/02/20 at 16:36; Stop 02/02/20 at 18:35; Status DC Insulin Human Regular 100 unit/ Sodium Chloride 101 ml @ 0 mls/hr CONT PRN PRN IV PER PROTOCOL Last administered on 02/03/20at 02:08; Start 02/02/20 at 16:45; Stop 02/03/20 at 02:31; Status DC Insulin Human Regular 100 ml @ As Directed STK-MED ONCE IV ; Start 02/02/20 at 16:41; Stop 02/02/20 at 16:41; Status DC Etomidate (Amidate) 20 mg 1X ONCE IV ; Start 02/02/20 at 17:15; Stop 02/02/20 at 17:22; Status DC Rocuronium [place] (Zemuron) 50 mg 1X ONCE IV ; Start 02/02/20 at 17:15; Stop 02/02/20 at 17:34; Status DC Piperacillin Sod/ Tazobactam Sod 3.375 gm/Sodium Chloride 50 ml @ 100 mls/hr Q6HRS IV Last administered on 02/04/20at 05:25; Start 02/03/20 at 00:00 Sodium Chloride 1,000 ml @ 250 mls/hr Q4H IV Last administered on 02/02/20at 18:43; Start 02/02/20 at 18:45; Stop 02/02/20 at 22:40; Status DC Pantoprazole Sodium (PROTONIX VIAL for IV PUSH) 40 mg 1X ONCE IVP Last administered on 02/02/20at 22:47; Start 02/02/20 at 20:15; Stop 02/02/20 at 20:40; Status DC Labetalol HCl (Normodyne Iv Push) 10 mg PRN Q4HRS PRN IVP HYPERTENSION Last administered on 02/04/20at 05:20; Start 02/02/20 at 20:15 Dextrose/Sodium Chloride 1,000 ml @ 250 mls/hr Q4H IV Last administered on 02/03/20at 07:59; Start 02/02/20 at 22:45; Stop 02/03/20 at 11:23; Status DC Insulin Human Regular 100 unit/ Sodium Chloride 101 ml @ 0 mls/hr CONT PRN IV SEE I/O RECORD; Start 02/03/20 at 02:15 Potassium Chloride/Water 100 ml @ 100 mls/hr PRN Q1HR PRN IV SEE COMMENTS; Start 02/03/20 at 05:00 Potassium Chloride/Water 100 ml @ 100 mls/hr Q1H IV Last administered on 02/03/20at 07:58; Start 02/03/20 at 05:00; Stop 02/03/20 at 08:59; Status DC Insulin Glargine (Lantus Syringe) 18 unit BID SQ Last administered on 02/04/20at 08:00; Start 02/03/20 at 09:00 Insulin Human Lispro (HumaLOG) 0-9 UNITS Q6HRS SQ Last administered on 02/04/20at 05:31; Start 02/03/20 at 12:00 Dextrose (Dextrose 50%-Water Syringe) 12.5 gm PRN Q15MIN PRN IV SEE COMMENTS; Start 02/03/20 at 06:15 Sodium Chloride 1,000 ml @ 125 mls/hr 1X ONCE IV Last administered on 02/03/20at 12:01; Start 02/03/20 at 11:30; Stop 02/03/20 at 19:29; Status DC Vecuronium [place] (Norcuron Bolus) 10 mg PRN Q6HRS PRN IV SEDATION Last administered on 02/04/20at 07:58; Start 02/04/20 at 07:30 Active Scripts Active Aspirin 325 Mg Tablet 325 Mg PO DAILY Idyhjw-Xltzelkz-Zvhg 50-325-40 (Butalb/Acetaminophen/Caffeine) 1 Each Tablet 1-2 Tab PO PRN Q4HRS PRN MDD 6 tablets 2 Days Ondansetron Odt (Ondansetron) 4 Mg Tab.rapdis 1 Tab PO PRN Q6-8HRS PRN Qciyls-Wmvajsci-Qezm 50-325-40 (Butalb/Acetaminophen/Caffeine) 1 Each Tablet 1 Each PO Q6HRS PRN Reported Venlafaxine Hcl Er (Venlafaxine Hcl) 150 Mg Tab.er.24 1 Tab PO BID Novolog (Insulin Aspart) 100 Unit/1 Ml Cartridge 25 Unit SQ TIDWMEALS Metformin Hcl 1,000 Mg Tablet 1,000 Mg PO BIDWMEALS Zofran (Ondansetron Hcl) 4 Mg Tablet 1 Tab PO Q6HRS Terazosin Hcl 2 Mg Capsule 2 Cap PO QHS Lantus Solostar (Insulin Glargine,Hum.rec.anlog) 100 Unit/1 Ml Insuln.pen 80 Unit SQ QHS Metoprolol Tartrate 50 Mg Tablet 1 Tab PO BID Omeprazole 20 Mg Capsule.dr 20 Mg PO BID Lisinopril 40 Mg Tablet 1 Tab PO DAILY Imitrex (Sumatriptan Succinate) 50 Mg Tablet 50 Mg PO PRN BID PRN Hydrochlorothiazide Tablet (Hydrochlorothiazide) 12.5 Mg Tablet 25 Mg PO DAILY Meclizine Hcl 25 Mg Tablet 25 Mg PO PRN TID PRN 90 Days Patanol (Olopatadine Hcl) 5 Ml Drops 1 Drop EACHEYE BID Atorvastatin Calcium 20 Mg Tablet 1 Tab PO DAILY Isosorbide Mononitrate 20 Mg Tablet 20 Mg PO BID Amlodipine Besylate 10 Mg Tablet 10 Mg PO HS Isosorbide Dinitrate 30 Mg Tablet 20 Mg PO DAILY Hydrochlorothiazide Tablet (Hydrochlorothiazide) 25 Mg Tablet 25 Mg PO DAILY Vitals/I & O Vital Sign - Last 24 Hours 02/03/20 02/03/20 02/03/20 02/03/20 10:00 11:00 11:32 12:00 Temp 98.7 98.7 Pulse 68 70 66 Resp 24 26 26 B/P (MAP) 134/72 (92) 140/85 (103) 132/67 (88) Pulse Ox 94 94 94 94 O2 Delivery Ventilator Ventilator Ventilator Ventilator 02/03/20 02/03/20 02/03/20 02/03/20 12:00 12:41 13:00 13:11 Pulse 67 Resp 26 B/P (MAP) 119/70 (86) Pulse Ox 94 94 94 O2 Delivery Mechanical Ventilator Ventilator Ventilator Ventilator O2 Flow Rate 15.0 15.0 02/03/20 02/03/20 02/03/20 02/03/20 14:00 15:00 15:40 16:00 Temp 98.6 98.6 Pulse 67 66 66 Resp 26 B/P (MAP) 134/68 (90) 140/82 (101) 140/82 (101) Pulse Ox 96 96 96 96 O2 Delivery Ventilator Ventilator Ventilator Ventilator 02/03/20 02/03/20 02/03/20 02/03/20 16:00 17:00 18:00 18:11 Pulse 66 65 Resp B/P (MAP) 146/64 (91) 142/81 (101) Pulse Ox 96 96 95 O2 Delivery Mechanical Ventilator Ventilator Ventilator Ventilator 02/03/20 02/03/20 02/03/20 02/03/20 19:00 20:00 20:00 20:04 Temp 97.5 97.5 Pulse 68 66 Resp 20 B/P (MAP) 146/85 (105) 149/88 (108) Pulse Ox 94 95 96 O2 Delivery Ventilator Mechanical Ventilator Ventilator Ventilator 02/03/20 02/03/20 02/03/20 02/03/20 21:00 21:00 21:53 21:55 Pulse 63 68 63 63 Resp 20 B/P (MAP) 151/85 158/89 (112) 151/85 151/85 Pulse Ox 95 O2 Delivery Ventilator 02/03/20 02/03/20 02/03/20 02/03/20 22:00 23:00 23:30 23:30 Temp 97.7 97.7 Pulse 70 74 74 Resp 20 20 B/P (MAP) 156/87 (110) 151/85 (107) 151/85 Pulse Ox 94 93 O2 Delivery Ventilator Ventilator Mechanical Ventilator 02/03/20 02/04/20 02/04/20 02/04/20 23:40 00:01 00:30 01:00 Temp 97.7 98.3 97.7 98.3 Pulse 79 82 82 Resp 20 20 B/P (MAP) 153/87 (109) 155/83 155/83 (107) Pulse Ox 92 91 94 O2 Delivery Ventilator Ventilator Ventilator 02/04/20 02/04/20 02/04/20 02/04/20 01:30 02:00 02:56 03:00 Pulse 78 87 84 Resp 20 20 22 B/P (MAP) 163/90 157/88 (111) 162/91 (114) Pulse Ox 94 95 94 O2 Delivery Ventilator Ventilator Ventilator 02/04/20 02/04/20 02/04/20 02/04/20 03:20 03:50 04:00 04:40 Temp 98.1 98.1 98.1 98.1 Pulse 90 93 Resp B/P (MAP) 170/93 159/96 (117) Pulse Ox 94 93 O2 Delivery Mechanical Ventilator Ventilator Ventilator 02/04/20 02/04/20 02/04/20 02/04/20 05:00 05:03 05:20 05:37 Pulse 97 97 Resp B/P (MAP) 184/102 (129) 184/102 Pulse Ox 93 93 92 O2 Delivery Ventilator Ventilator Ventilator 02/04/20 02/04/20 02/04/20 02/04/20 06:00 07:00 07:22 08:00 Pulse 81 76 Resp 27 B/P (MAP) 164/91 (115) 170/92 (118) Pulse Ox 92 92 92 O2 Delivery Ventilator Ventilator Ventilator Mechanical Ventilator 02/04/20 02/04/20 08:00 08:52 Temp 99.6 99.6 Pulse 85 Resp 22 B/P (MAP) 175/93 (120) Pulse Ox 94 94 O2 Delivery Ventilator Ventilator Intake and Output 02/03/20 02/03/20 02/04/20 15:00 23:00 07:00 Intake Total 636 ml Output Total 240 ml 435 ml 355 ml Balance -240 ml -435 ml 281 ml RENU TAI MD Feb 04, 2020 09:06
--- NOTE | 2020-02-04 09:34 | PDOC4 ---
Procedure Note Procedure: RIGHT IJ TRIPLE LUMEN CENTRAL LINE. Called to ICU for central line. Pt needing blood pressure medications, poor IV access, and blood draws. Consent signed. Time out. Right IJ sterile Prep / Dr kwan. US showed normal anatomy. Easy cannulation. Selidinger technique over wire, 18g slow flow blue blood. Dilated. TLC over wire, easy. Sewn in place. Care returned to ICU team. CXR pending. Indications: IV access ROGER JOHANSEN MD Feb 04, 2020 09:34
[2020-02-04] MEDS ORDERED: POTASSIUM CHLORIDE 20MEQ 100 ML IV ONE (10:00)
--- NOTE | 2020-02-04 10:31 | RAD ---
CHEST AP ONLY 02/04/2020 9:23 AM INDICATION: Line placement COMPARISON: 02/02/2020 TECHNIQUE: Portable frontal view of the chest is provided. FINDINGS: The cardiomediastinal silhouette is within normal limits. Right IJ central venous catheter is identified with distal tip projecting over the cavoatrial junction. Endotracheal tube and nasogastric tube are in similar position. There is mixed interstitial and alveolar airspace disease with improved aeration of the left lung base compared to prior examination. No pleural effusions, pulmonary vascular congestion or pneumothorax. No suspicious osseous abnormality. IMPRESSION: Right IJ central venous catheter is identified with the distal tip projecting over the cavoatrial junction. No pneumothorax. Improved aeration of lungs with persistent bilateral mixed interstitial and alveolar airspace disease. Electronically signed by: Ary Walton MD (02/04/2020 10:28 AM) JOSÉ MIGUEL
--- NOTE | 2020-02-04 10:41 | NUR ---
SS following up with discharge planning. SS reviewed pt chart and discussed with pt RN. Pt remains on the vent and IV Zosyn at this time. Pt COVID19 positive. SS will continue to follow for discharge planning.
--- NOTE | 2020-02-04 11:38 | PDOC ---
PULMONARY PROGRESS NOTES Subjective worsening hypoxia AC mode 100%FIO2/ 9 PEEP Vitals Vital Signs Date Time Temp Pulse Resp B/P (MAP) Pulse Ox O2 Delivery O2 Flow Rate FiO2 02/04/20 11:21 96 15.0 02/04/20 11:00 76 20 114/73 (87) Ventilator 02/04/20 08:00 99.6 99.6 Comments visual exam done due to COVID pandemia AC mode, no soa sedated/no edema Lungs: Other Labs Laboratory Tests Test 02/02/20 15:44 02/02/20 15:45 02/02/20 19:58 02/02/20 20:10 O2 Saturation 96 % (92-99) Arterial Blood pH 7.01 (7.35-7.45) Arterial Blood pCO2 at Patient Temp 37 mmHg (35-46) Arterial Blood pO2 at Patient Temp 118 mmHg (75-108) Arterial Blood HCO3 9 mmol/L (21-28) Arterial Blood Base Excess -21 mmol/L (-3-3) Oxyhemoglobin 95.1 % Methemoglobin 0.5 % (0.0-1.9) Carbon Monoxide, Quantitative 0.2 % (0.0-1.9) FiO2 100% vent White Blood Count 14.7 x10^3/uL (4.0-11.0) Red Blood Count 5.70 x10^6/uL (4.30-5.70) Hemoglobin 17.3 g/dL (13.0-17.5) Hematocrit 51.8 % (39.0-53.0) Mean Corpuscular Volume 91 fL (79-100) Mean Corpuscular Hemoglobin 30 pg (25-35) Mean Corpuscular Hemoglobin Concent 33 g/dL (31-37) Red Cell Distribution Width 14.4 % (11.5-14.5) Platelet Count 308 x10^3/uL (140-400) Neutrophils (%) (Auto) 87 % (31-73) Lymphocytes (%) (Auto) 5 % (24-48) Monocytes (%) (Auto) 8 % (0-9) Eosinophils (%) (Auto) 0 % (0-3) Basophils (%) (Auto) 0 % (0-3) Neutrophils # (Auto) 12.8 x10^3/uL (1.8-7.7) Lymphocytes # (Auto) 0.7 x10^3/uL (1.0-4.8) Monocytes # (Auto) 1.2 x10^3/uL (0.0-1.1) Eosinophils # (Auto) 0.0 x10^3/uL (0.0-0.7) Basophils # (Auto) 0.1 x10^3/uL (0.0-0.2) Segmented Neutrophils % 79 % (35-66) Band Neutrophils % 9 % (0-9) Lymphocytes % 5 % (24-48) Atypical Lymphocytes % (Manual) 1 % (0-0) Monocytes % 5 % (0-10) Metamyelocytes % 1 % (0-0) Platelet Estimate Adequate (ADEQUATE) Prothrombin Time 14.9 SEC (11.7-14.0) Prothromb Time International Ratio 1.2 (0.8-1.1) Activated Partial Thromboplast Time 20 SEC (24-38) Sodium Level 147 mmol/L (136-145) 152 mmol/L (136-145) Potassium Level 4.4 mmol/L (3.5-5.1) 4.1 mmol/L (3.5-5.1) Chloride Level 102 mmol/L (98-107) 113 mmol/L (98-107) Carbon Dioxide Level 10 mmol/L (21-32) 15 mmol/L (21-32) Anion Gap 35 (6-14) 24 (6-14) Blood Urea Nitrogen 35 mg/dL (8-26) 33 mg/dL (8-26) Creatinine 1.9 mg/dL (0.7-1.3) 1.8 mg/dL (0.7-1.3) Estimated GFR (Cockcroft-Gault) 46.2 49.2 BUN/Creatinine Ratio 18 (6-20) Glucose Level 649 mg/dL (70-99) 374 mg/dL (70-99) Plasma/Serum Osmolality 367 mOsmol/kg (275-295) Lactic Acid Level 4.0 mmol/L (0.4-2.0) 1.5 mmol/L (0.4-2.0) Calcium Level 10.4 mg/dL (8.5-10.1) 8.4 mg/dL (8.5-10.1) Magnesium Level 2.7 mg/dL (1.8-2.4) 2.0 mg/dL (1.8-2.4) Ferritin 685 ng/mL (26-388) Total Bilirubin 0.6 mg/dL (0.2-1.0) Aspartate Amino Transf (AST/SGOT) 30 U/L (15-37) Alanine Aminotransferase (ALT/SGPT) 17 U/L (16-63) Alkaline Phosphatase 95 U/L (46-116) Ammonia 16 mcmol/L (11-34) Lactate Dehydrogenase 631 U/L (85-227) Creatine Kinase 293 U/L (39-308) Creatine Kinase MB (Mass) 3.1 ng/mL (0.0-3.6) Creatine Kinase MB Relative Index 1.1 % (0-4) Troponin I Quantitative < 0.017 ng/mL (0.000-0.055) PV-Qrm-G-Type Natriuretic Peptide 314 pg/mL (0-124) Total Protein 8.7 g/dL (6.4-8.2) Albumin 3.0 g/dL (3.4-5.0) 2.4 g/dL (3.4-5.0) Albumin/Globulin Ratio 0.5 (1.0-1.7) Salicylates Level 6.6 mg/dL (2.8-20.0) Salicylate Last Dose Date Unk Salicylate Last Dose Time Unk Acetaminophen Level < 2 mcg/ml (10-30) Acetaminophen Last Dose Date Unk Acetaminophen Last Dose Time Unk Ethyl Alcohol Level < 10 mg/dL (0-10) Coronavirus (COVID-19)(PCR) Detected (NOT DETECT.) Glucose (Fingerstick) 389 mg/dL (70-99) Phosphorus Level 5.8 mg/dL (2.6-4.7) Test 02/02/20 21:30 02/02/20 22:25 02/02/20 22:36 02/02/20 23:45 Glucose (Fingerstick) 287 mg/dL (70-99) 236 mg/dL (70-99) O2 Saturation 98 % (92-99) Arterial Blood pH 7.27 (7.35-7.45) Arterial Blood pCO2 at Patient Temp 39 mmHg (35-46) Arterial Blood pO2 at Patient Temp 124 mmHg (75-108) Arterial Blood pO2 (Temp corrected) mmHg Arterial Blood HCO3 17 mmol/L (21-28) Arterial Blood Base Excess -9 mmol/L (-3-3) Urine Collection Type U cath Urine Color Yellow Urine Clarity Turbid Urine pH 5.5 (<5.0-8.0) Urine Specific Mentcle 1.025 (1.000-1.030) Urine Protein 100 mg/dL (NEG-TRACE) Urine Glucose (UA) 500 mg/dL (NEG) Urine Ketones (Stick) 40 mg/dL (NEG) Urine Blood Small (NEG) Urine Nitrite Negative (NEG) Urine Bilirubin Large (NEG) Urine Urobilinogen Dipstick 1.0 mg/dL (0.2 mg/dL) Urine Leukocyte Esterase Negative (NEG) Urine RBC 1-2 /HPF (0-2) Urine WBC Occ /HPF (0-4) Urine Squamous Epithelial Cells Occ /LPF Urine Amorphous Sediment Present /HPF Urine Bacteria 0 /HPF (0-FEW) Urine Granular Casts Few /HPF Urine Mucus Slight /LPF Urine Opiates Screen Neg (NEG) Urine Methadone Screen Neg (NEG) Urine Barbiturates Pos (NEG) Urine Phencyclidine Screen Neg (NEG) Urine Amphetamine/Methamphetamine Neg (NEG) Urine Benzodiazepines Screen Pos (NEG) Urine Cocaine Screen Neg (NEG) Urine Cannabinoids Screen Neg (NEG) Urine Ethyl Alcohol Neg (NEG) Test 02/02/20 23:50 02/02/20 23:51 02/03/20 00:55 02/03/20 02:02 Sodium Level 151 mmol/L (136-145) Potassium Level 3.7 mmol/L (3.5-5.1) Chloride Level 114 mmol/L (98-107) Carbon Dioxide Level 21 mmol/L (21-32) Anion Gap 16 (6-14) Blood Urea Nitrogen 32 mg/dL (8-26) Creatinine 1.8 mg/dL (0.7-1.3) Estimated GFR (Cockcroft-Gault) 49.2 Glucose Level 278 mg/dL (70-99) Calcium Level 8.1 mg/dL (8.5-10.1) Phosphorus Level 2.6 mg/dL (2.6-4.7) Magnesium Level 2.0 mg/dL (1.8-2.4) Glucose (Fingerstick) 241 mg/dL (70-99) 246 mg/dL (70-99) 258 mg/dL (70-99) Test 02/03/20 02:58 02/03/20 03:50 02/03/20 04:04 02/03/20 05:14 Glucose (Fingerstick) 245 mg/dL (70-99) 207 mg/dL (70-99) 160 mg/dL (70-99) White Blood Count 13.3 x10^3/uL (4.0-11.0) Red Blood Count 4.69 x10^6/uL (4.30-5.70) Hemoglobin 13.8 g/dL (13.0-17.5) Hematocrit 41.1 % (39.0-53.0) Mean Corpuscular Volume 88 fL (79-100) Mean Corpuscular Hemoglobin 29 pg (25-35) Mean Corpuscular Hemoglobin Concent 34 g/dL (31-37) Red Cell Distribution Width 14.0 % (11.5-14.5) Platelet Count 215 x10^3/uL (140-400) Neutrophils (%) (Auto) 89 % (31-73) Lymphocytes (%) (Auto) 4 % (24-48) Monocytes (%) (Auto) 6 % (0-9) Eosinophils (%) (Auto) 0 % (0-3) Basophils (%) (Auto) 1 % (0-3) Neutrophils # (Auto) 11.8 x10^3/uL (1.8-7.7) Lymphocytes # (Auto) 0.6 x10^3/uL (1.0-4.8) Monocytes # (Auto) 0.8 x10^3/uL (0.0-1.1) Eosinophils # (Auto) 0.0 x10^3/uL (0.0-0.7) Basophils # (Auto) 0.1 x10^3/uL (0.0-0.2) Prothrombin Time 14.6 SEC (11.7-14.0) Prothromb Time International Ratio 1.2 (0.8-1.1) Sodium Level 150 mmol/L (136-145) Potassium Level 3.1 mmol/L (3.5-5.1) Chloride Level 115 mmol/L (98-107) Carbon Dioxide Level 23 mmol/L (21-32) Anion Gap 12 (6-14) Blood Urea Nitrogen 26 mg/dL (8-26) Creatinine 1.7 mg/dL (0.7-1.3) Estimated GFR (Cockcroft-Gault) 52.5 Glucose Level 222 mg/dL (70-99) Calcium Level 8.2 mg/dL (8.5-10.1) Test 02/03/20 06:23 02/03/20 08:08 02/03/20 08:30 02/03/20 10:58 Glucose (Fingerstick) 80 mg/dL (70-99) 108 mg/dL (70-99) 159 mg/dL (70-99) O2 Saturation 92 % (92-99) Arterial Blood pH 7.37 (7.35-7.45) Arterial Blood pCO2 at Patient Temp 35 mmHg (35-46) Arterial Blood pO2 at Patient Temp 66 mmHg (75-108) Arterial Blood HCO3 20 mmol/L (21-28) Arterial Blood Base Excess -5 mmol/L (-3-3) FiO2 80 Test 02/03/20 16:49 02/03/20 21:57 02/03/20 23:42 02/04/20 03:20 Glucose (Fingerstick) 241 mg/dL (70-99) 253 mg/dL (70-99) 275 mg/dL (70-99) White Blood Count 10.8 x10^3/uL (4.0-11.0) Red Blood Count 5.27 x10^6/uL (4.30-5.70) Hemoglobin 15.4 g/dL (13.0-17.5) Hematocrit 46.2 % (39.0-53.0) Mean Corpuscular Volume 88 fL (79-100) Mean Corpuscular Hemoglobin 29 pg (25-35) Mean Corpuscular Hemoglobin Concent 33 g/dL (31-37) Red Cell Distribution Width 14.3 % (11.5-14.5) Platelet Count 180 x10^3/uL (140-400) Neutrophils (%) (Auto) 88 % (31-73) Lymphocytes (%) (Auto) 6 % (24-48) Monocytes (%) (Auto) 4 % (0-9) Eosinophils (%) (Auto) 2 % (0-3) Basophils (%) (Auto) 0 % (0-3) Neutrophils # (Auto) 9.5 x10^3/uL (1.8-7.7) Lymphocytes # (Auto) 0.6 x10^3/uL (1.0-4.8) Monocytes # (Auto) 0.4 x10^3/uL (0.0-1.1) Eosinophils # (Auto) 0.2 x10^3/uL (0.0-0.7) Basophils # (Auto) 0.0 x10^3/uL (0.0-0.2) Sodium Level 148 mmol/L (136-145) Potassium Level 3.4 mmol/L (3.5-5.1) Chloride Level 111 mmol/L (98-107) Carbon Dioxide Level 24 mmol/L (21-32) Anion Gap 13 (6-14) Blood Urea Nitrogen 19 mg/dL (8-26) Creatinine 1.3 mg/dL (0.7-1.3) Estimated GFR (Cockcroft-Gault) 71.6 BUN/Creatinine Ratio 15 (6-20) Glucose Level 199 mg/dL (70-99) Calcium Level 8.8 mg/dL (8.5-10.1) Total Bilirubin 0.3 mg/dL (0.2-1.0) Aspartate Amino Transf (AST/SGOT) 30 U/L (15-37) Alanine Aminotransferase (ALT/SGPT) 12 U/L (16-63) Alkaline Phosphatase 80 U/L (46-116) Total Protein 6.9 g/dL (6.4-8.2) Albumin 2.2 g/dL (3.4-5.0) Albumin/Globulin Ratio 0.5 (1.0-1.7) Test 02/04/20 05:27 02/04/20 07:30 Glucose (Fingerstick) 190 mg/dL (70-99) O2 Saturation 91 % (92-99) Arterial Blood pH 7.43 (7.35-7.45) Arterial Blood pCO2 at Patient Temp 34 mmHg (35-46) Arterial Blood pO2 at Patient Temp 59 mmHg (75-108) Arterial Blood HCO3 22 mmol/L (21-28) Arterial Blood Base Excess -2 mmol/L (-3-3) FiO2 80 Laboratory Tests Test 02/03/20 16:49 02/03/20 21:57 02/03/20 23:42 02/04/20 03:20 Glucose (Fingerstick) 241 mg/dL (70-99) 253 mg/dL (70-99) 275 mg/dL (70-99) White Blood Count 10.8 x10^3/uL (4.0-11.0) Red Blood Count 5.27 x10^6/uL (4.30-5.70) Hemoglobin 15.4 g/dL (13.0-17.5) Hematocrit 46.2 % (39.0-53.0) Mean Corpuscular Volume 88 fL (79-100) Mean Corpuscular Hemoglobin 29 pg (25-35) Mean Corpuscular Hemoglobin Concent 33 g/dL (31-37) Red Cell Distribution Width 14.3 % (11.5-14.5) Platelet Count 180 x10^3/uL (140-400) Neutrophils (%) (Auto) 88 % (31-73) Lymphocytes (%) (Auto) 6 % (24-48) Monocytes (%) (Auto) 4 % (0-9) Eosinophils (%) (Auto) 2 % (0-3) Basophils (%) (Auto) 0 % (0-3) Neutrophils # (Auto) 9.5 x10^3/uL (1.8-7.7) Lymphocytes # (Auto) 0.6 x10^3/uL (1.0-4.8) Monocytes # (Auto) 0.4 x10^3/uL (0.0-1.1) Eosinophils # (Auto) 0.2 x10^3/uL (0.0-0.7) Basophils # (Auto) 0.0 x10^3/uL (0.0-0.2) Sodium Level 148 mmol/L (136-145) Potassium Level 3.4 mmol/L (3.5-5.1) Chloride Level 111 mmol/L (98-107) Carbon Dioxide Level 24 mmol/L (21-32) Anion Gap 13 (6-14) Blood Urea Nitrogen 19 mg/dL (8-26) Creatinine 1.3 mg/dL (0.7-1.3) Estimated GFR (Cockcroft-Gault) 71.6 BUN/Creatinine Ratio 15 (6-20) Glucose Level 199 mg/dL (70-99) Calcium Level 8.8 mg/dL (8.5-10.1) Total Bilirubin 0.3 mg/dL (0.2-1.0) Aspartate Amino Transf (AST/SGOT) 30 U/L (15-37) Alanine Aminotransferase (ALT/SGPT) 12 U/L (16-63) Alkaline Phosphatase 80 U/L (46-116) Total Protein 6.9 g/dL (6.4-8.2) Albumin 2.2 g/dL (3.4-5.0) Albumin/Globulin Ratio 0.5 (1.0-1.7) Test 02/04/20 05:27 02/04/20 07:30 Glucose (Fingerstick) 190 mg/dL (70-99) O2 Saturation 91 % (92-99) Arterial Blood pH 7.43 (7.35-7.45) Arterial Blood pCO2 at Patient Temp 34 mmHg (35-46) Arterial Blood pO2 at Patient Temp 59 mmHg (75-108) Arterial Blood HCO3 22 mmol/L (21-28) Arterial Blood Base Excess -2 mmol/L (-3-3) FiO2 80 Medications Active Scripts Medications Dose Route/Sig Max Daily Dose Days Date Category Aspirin 325 Mg Tablet 325 Mg PO DAILY 03/20/19 Rx Venlafaxine Hcl Er (Venlafaxine Hcl) 150 Mg Tab.er.24 1 Tab PO BID 03/18/19 Reported Novolog (Insulin Aspart) 100 Unit/1 Ml Cartridge 25 Unit SQ TIDWMEALS 03/18/19 Reported Metformin Hcl 1,000 Mg Tablet 1,000 Mg PO BIDWMEALS 03/18/19 Reported Zofran (Ondansetron Hcl) 4 Mg Tablet 1 Tab PO Q6HRS 03/18/19 Reported Terazosin Hcl 2 Mg Capsule 2 Cap PO QHS 03/18/19 Reported Lantus Solostar (Insulin Glargine,Hum.rec.anlog) 100 Unit/1 Ml Insuln.pen 80 Unit SQ QHS 03/18/19 Reported Metoprolol Tartrate 50 Mg Tablet 1 Tab PO BID 03/18/19 Reported Omeprazole 20 Mg Capsule.dr 20 Mg PO BID 03/18/19 Reported Lisinopril 40 Mg Tablet 1 Tab PO DAILY 03/18/19 Reported Jkoggf-Tqugugij-Xvxp 50-325-40 (Butalb/Acetaminophen/Caffeine) 1 Each Tablet 1-2 Tab PO PRN Q4HRS PRN MDD 6 tablets 2 07/30/18 Rx Imitrex (Sumatriptan Succinate) 50 Mg Tablet 50 Mg PO PRN BID PRN 01/15/15 Reported Hydrochlorothiazide Tablet (Hydrochlorothiazide) 12.5 Mg Tablet 25 Mg PO DAILY 01/15/15 Reported Meclizine Hcl 25 Mg Tablet 25 Mg PO PRN TID PRN 90 01/15/15 Reported Patanol (Olopatadine Hcl) 5 Ml Drops 1 Drop EACHEYE BID 01/11/15 Reported Atorvastatin Calcium 20 Mg Tablet 1 Tab PO DAILY 01/11/15 Reported Isosorbide Mononitrate 20 Mg Tablet 20 Mg PO BID 08/22/13 Reported Amlodipine Besylate 10 Mg Tablet 10 Mg PO HS 08/22/13 Reported Isosorbide Dinitrate 30 Mg Tablet 20 Mg PO DAILY 07/15/19 Reported Hydrochlorothiazide Tablet (Hydrochlorothiazide) 25 Mg Tablet 25 Mg PO DAILY 07/15/19 Reported Ondansetron Odt (Ondansetron) 4 Mg Tab.rapdis 1 Tab PO PRN Q6-8HRS PRN 01/31/19 Rx Buiszv-Dvxbgfde-Wnoj 50-325-40 (Butalb/Acetaminophen/Caffeine) 1 Each Tablet 1 Each PO Q6HRS PRN 01/31/19 Rx Impression . 1. Acute hypoxic respiratory failure secondary to COVID-19 pneumonia and acute respiratory distress syndrome clinically. 2. COVID-19 pneumonia with sepsis. 3. Abnormal chest x-ray with diffuse alveolar infiltrates and somewhat peripheral location. We will monitor closely. Cannot exclude any aspiration pneumonia. 4. 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 5. Diabetic ketoacidosis, now anion gap closed and being monitored by PCP. 6. Hypernatremia, still likely volume contraction. Currently on IV fluids. Plan . 1. Continue with present assist control mode and follow ABGs and make necessary adjustments. 100%FIO2/ PEEP of 9 2. Broad-spectrum antibiotics. 3. Monitor clinical course. 4. Follow renal function. 5. s/p convalescent plasma. 6. Due to DKA, I would withhold steroids at present 7. We may consider anti-IL6 inhibitor, increased inflammatory markers. 8. DVT and stress ulcer prophylaxis. 9. Discussed with RN and RT. / 10. Critical care time 35 minutes. IGNACIO PUTNAM MD Feb 04, 2020 11:38
[2020-02-04] MEDS ORDERED: TOCILIZUMAB 400 MG in IV NORMAL SALINE 100ML 80 ML IV ONE (13:00)
[2020-02-04] MEDS: IV 1/2 NORMAL SALINE 1,000 ML IV SCH ×2 (18:50→23:37)
[2020-02-04] MEDS: ENOXAPARIN 40 MG/0.4 ML SYRINGE. SQ SCH (21:35)
[2020-02-04] MEDS: ATORVASTATIN CALCIUM 20 MG TABLET PO SCH (21:35)
[2020-02-04] MEDS: amLODIPine BESYLATE 10 MG TABLET PO SCH (21:35)
[2020-02-04] MEDS: NOREPINEPHRINE VIAL 8 MG in IV DEXTROSE 5% 250 ML IV PRN (22:48)
[2020-02-05] VITALS (24 sets, daily range): BP systolic 94–173; BP diastolic 56–95
[2020-02-05] MEDS: PROPOFOL 100 ML IV PRN ×6 (01:40→22:14)
[2020-02-05] MEDS: INSULIN LISPRO 300 UNITS/3 ML VIAL. SQ SCH ×3 (06:00→17:51)
[2020-02-05] MEDS: PIPERACILLIN/TAZOBACTAM 3.375 GM in IV NORMAL SALINE 50ML 50 ML IV SCH ×3 (06:24→17:29)
[2020-02-05 07:09] LABS: ALBUMIN 1.6 g/dL (3.4-5.0); ALBUMIN/GLOBULIN RATIO 0.4 (1.0-1.7); CALCIUM 7.5 mg/dL (8.5-10.1); GFR 96.9; POTASSIUM 3.3 mmol/L (3.5-5.1); TOTAL BILIRUBIN 0.4 mg/dL (0.2-1.0); TOTAL PROTEIN 5.7 g/dL (6.4-8.2)
[2020-02-05] MEDS ORDERED: POTASSIUM BICARB 20 MEQ EFFERVESCENT TABLET. PO ONE (07:45)
[2020-02-05] MEDS: metFORMIN 500 MG TABLET PO SCH ×2 (08:00→16:57)
[2020-02-05] MEDS: ELECTROLYTE (ICU) PROTOCOL. MC SCH (08:08)
[2020-02-05 08:12] LABS: BASE EXCESS ABG -2 mmol/L (-3-3); HCO3 ABG 24 mmol/L (21-28); PCO2 ABG 50 mmHg (35-46); PO2 ABG 53 mmHg (75-108); SAT O2 ABG 85 % (92-99)
[2020-02-05 08:16] LABS: FIO2 ABG 100
[2020-02-05] MEDS: IV 1/2 NORMAL SALINE 1,000 ML IV SCH ×2 (08:25→16:57)
[2020-02-05] MEDS: ENOXAPARIN 40 MG/0.4 ML SYRINGE. SQ SCH ×2 (08:26→21:06)
[2020-02-05] MEDS: PANTOPRAZOLE IV PUSH 40 MG VIAL. IVP SCH (08:27)
[2020-02-05] MEDS: hydroCHLOROthiazide 25 MG TABLET PO SCH (08:28)
[2020-02-05] MEDS: ISOSORBIDE DINITRATE 10 MG TABLET. PO SCH ×3 (08:29→21:06)
[2020-02-05] MEDS: METOPROLOL TART IMMED RELEASE 50 MG TABLET. PO SCH ×2 (08:29→21:06)
[2020-02-05] MEDS: LISINOPRIL 20 MG TABLET PO SCH (08:29)
[2020-02-05] MEDS: VENLAFAXINE 75 MG TABLET. PO SCH ×2 (08:30→21:05)
[2020-02-05] MEDS: ASPIRIN 325 MG TABLET PO SCH (08:30)
[2020-02-05] MEDS: DOCUSATE 100 MG/10 ML SOLUTION. PO SCH (08:30)
[2020-02-05] MEDS: CHLORHEXIDINE 0.12% 15 ML MOUTHWASH. MM SCH ×2 (08:30→21:08)
[2020-02-05] MEDS: SENNOSIDES/DOCUSATE 8.6/50MG TABLET. PO SCH ×2 (08:30→21:05)
[2020-02-05] MEDS: KETOTIFEN FUMARATE 0.025% OPHTH SOLUTION BOTTLE. OU SCH ×2 (08:30→21:00)
[2020-02-05] MEDS: INSULIN GLARGINE SYRINGE. SQ SCH ×2 (08:47→21:00)
[2020-02-05] MEDS: VECURONIUM BOLUS 10 MG VIAL. IV PRN ×2 (09:20→14:04)
--- NOTE | 2020-02-05 10:08 | PDOC ---
PROGRESS NOTES History of Present Illness History of Present Illness VTE Prophylaxis Ordered VTE Prophylaxis Devices: No VTE Pharmacological Prophylaxi: Yes IMPRESSION Assessment/Plan Toxic and metabolic encephalopathy Sepsis with pulmonary focus most likely Suspect gram negative organism pneumonia POS COVID 19 infection DKA lactic acidosis secondary to a combination of metabolic and infectious process ongoing Acute renal failure, vasomotor etiology most likely Hypernatremia Severe dehydration History of essential hypertension History of CVA Diabetes mellitus type 2 insulin requiring Severe anion gap metabolic acidosis Plan: isolation admit to ICU VENT SUPPORT AC mode 100%FIO2/ 10 PEEP fluid resuscitation DKA protocol Broad spectrum antibiotics for pneumonic process POS COVID 19 infection follow BMP every 4 hours. supportive measures vent management, will consult pulmonology for assistance. further recommendations based on clinical course DVT prophylaxis: heparin 02/04 worsening hypoxia AC mode 100%FIO2/ 9 PEEP Justicifation of Admission Dx: Justicifation of Admission Dx: Justifications for Admission: Justification of Admission Dx: Yes Sepsis: Altered Mental Status 34 MIN CC TIME Vitals Vitals Vital Signs Date Time Temp Pulse Resp B/P (MAP) Pulse Ox O2 Delivery O2 Flow Rate FiO2 02/05/20 09:00 62 24 124/77 (93) 94 Ventilator 02/05/20 08:00 97.9 97.9 02/04/20 18:03 15.0 Physical Exam Physical Exam SEDATED ON VENT LUNGS: Coarse breath sounds HEART: RRR, S1, S2 present. Peripheral pulses intact ABDOMEN: Soft, non distended. Positive bowel sounds. EXTREMITIES: Without any cyanosis. NEUROLOGIC: Sedated PSYCHIATRIC: uanble to obtain due to acute process . SKIN: No ulcerations General: Cooperative Lungs: Other Extremities: No cyanosis Labs LABS SPEC #: [id number] RINKU: 02/02/20-1545 STATUS: RES ROSSANA #: [id number] RECD: 02/02/20-[address]: ORTEGA ALEXANDRE DO SOURCE: BLOOD ENTR: 02/02/20-[address]: PUJA STEELE MD [facility]: ORDERED: BCULT Procedure Result BLOOD CULTURE Preliminary NO GROWTH AFTER 2 DAYS ----- ------- Laboratory Tests Test 02/04/20 12:02 02/04/20 12:21 02/04/20 17:57 02/04/20 23:57 Glucose (Fingerstick) 211 mg/dL (70-99) 179 mg/dL (70-99) 176 mg/dL (70-99) D-Dimer (Kassy) 4.86 ug/mlFEU (0.00-0.50) Test 02/05/20 06:00 02/05/20 06:21 02/05/20 08:09 Sodium Level 144 mmol/L (136-145) Potassium Level 3.3 mmol/L (3.5-5.1) Chloride Level 109 mmol/L (98-107) Carbon Dioxide Level 28 mmol/L (21-32) Anion Gap 7 (6-14) Blood Urea Nitrogen 17 mg/dL (8-26) Creatinine 1.0 mg/dL (0.7-1.3) Estimated GFR (Cockcroft-Gault) 96.9 BUN/Creatinine Ratio 17 (6-20) Glucose Level 195 mg/dL (70-99) Calcium Level 7.5 mg/dL (8.5-10.1) Total Bilirubin 0.4 mg/dL (0.2-1.0) Aspartate Amino Transf (AST/SGOT) 33 U/L (15-37) Alanine Aminotransferase (ALT/SGPT) 13 U/L (16-63) Alkaline Phosphatase 108 U/L (46-116) Total Protein 5.7 g/dL (6.4-8.2) Albumin 1.6 g/dL (3.4-5.0) Albumin/Globulin Ratio 0.4 (1.0-1.7) Glucose (Fingerstick) 164 mg/dL (70-99) O2 Saturation 85 % (92-99) Arterial Blood pH 7.31 (7.35-7.45) Arterial Blood pCO2 at Patient Temp 50 mmHg (35-46) Arterial Blood pO2 at Patient Temp 53 mmHg (75-108) Arterial Blood HCO3 24 mmol/L (21-28) Arterial Blood Base Excess -2 mmol/L (-3-3) FiO2 100 Assessment and Plan Assessmemt and Plan Problems Medical Problems: (1) Acute metabolic encephalopathy Status: Acute (2) Acute renal insufficiency Status: Acute (3) DKA (diabetic ketoacidoses) Status: Acute (4) Pneumonia Status: Acute (5) Respiratory failure with hypoxia Status: Acute (6) Suspected 2019 novel coronavirus infection Status: Acute Comment Review of Relevant I have reviewed the following items myra (where applicable) has been applied. Labs Laboratory Tests Test 02/03/20 10:58 02/03/20 16:49 02/03/20 21:57 02/03/20 23:42 Glucose (Fingerstick) 159 mg/dL (70-99) 241 mg/dL (70-99) 253 mg/dL (70-99) 275 mg/dL (70-99) Test 02/04/20 03:20 02/04/20 05:27 02/04/20 07:30 02/04/20 12:02 White Blood Count 10.8 x10^3/uL (4.0-11.0) Red Blood Count 5.27 x10^6/uL (4.30-5.70) Hemoglobin 15.4 g/dL (13.0-17.5) Hematocrit 46.2 % (39.0-53.0) Mean Corpuscular Volume 88 fL (79-100) Mean Corpuscular Hemoglobin 29 pg (25-35) Mean Corpuscular Hemoglobin Concent 33 g/dL (31-37) Red Cell Distribution Width 14.3 % (11.5-14.5) Platelet Count 180 x10^3/uL (140-400) Neutrophils (%) (Auto) 88 % (31-73) Lymphocytes (%) (Auto) 6 % (24-48) Monocytes (%) (Auto) 4 % (0-9) Eosinophils (%) (Auto) 2 % (0-3) Basophils (%) (Auto) 0 % (0-3) Neutrophils # (Auto) 9.5 x10^3/uL (1.8-7.7) Lymphocytes # (Auto) 0.6 x10^3/uL (1.0-4.8) Monocytes # (Auto) 0.4 x10^3/uL (0.0-1.1) Eosinophils # (Auto) 0.2 x10^3/uL (0.0-0.7) Basophils # (Auto) 0.0 x10^3/uL (0.0-0.2) Sodium Level 148 mmol/L (136-145) Potassium Level 3.4 mmol/L (3.5-5.1) Chloride Level 111 mmol/L (98-107) Carbon Dioxide Level 24 mmol/L (21-32) Anion Gap 13 (6-14) Blood Urea Nitrogen 19 mg/dL (8-26) Creatinine 1.3 mg/dL (0.7-1.3) Estimated GFR (Cockcroft-Gault) 71.6 BUN/Creatinine Ratio 15 (6-20) Glucose Level 199 mg/dL (70-99) Calcium Level 8.8 mg/dL (8.5-10.1) Total Bilirubin 0.3 mg/dL (0.2-1.0) Aspartate Amino Transf (AST/SGOT) 30 U/L (15-37) Alanine Aminotransferase (ALT/SGPT) 12 U/L (16-63) Alkaline Phosphatase 80 U/L (46-116) Total Protein 6.9 g/dL (6.4-8.2) Albumin 2.2 g/dL (3.4-5.0) Albumin/Globulin Ratio 0.5 (1.0-1.7) Glucose (Fingerstick) 190 mg/dL (70-99) 211 mg/dL (70-99) O2 Saturation 91 % (92-99) Arterial Blood pH 7.43 (7.35-7.45) Arterial Blood pCO2 at Patient Temp 34 mmHg (35-46) Arterial Blood pO2 at Patient Temp 59 mmHg (75-108) Arterial Blood HCO3 22 mmol/L (21-28) Arterial Blood Base Excess -2 mmol/L (-3-3) FiO2 80 Test 02/04/20 12:21 02/04/20 17:57 02/04/20 23:57 02/05/20 06:00 D-Dimer (Kassy) 4.86 ug/mlFEU (0.00-0.50) Glucose (Fingerstick) 179 mg/dL (70-99) 176 mg/dL (70-99) Sodium Level 144 mmol/L (136-145) Potassium Level 3.3 mmol/L (3.5-5.1) Chloride Level 109 mmol/L (98-107) Carbon Dioxide Level 28 mmol/L (21-32) Anion Gap 7 (6-14) Blood Urea Nitrogen 17 mg/dL (8-26) Creatinine 1.0 mg/dL (0.7-1.3) Estimated GFR (Cockcroft-Gault) 96.9 BUN/Creatinine Ratio 17 (6-20) Glucose Level 195 mg/dL (70-99) Calcium Level 7.5 mg/dL (8.5-10.1) Total Bilirubin 0.4 mg/dL (0.2-1.0) Aspartate Amino Transf (AST/SGOT) 33 U/L (15-37) Alanine Aminotransferase (ALT/SGPT) 13 U/L (16-63) Alkaline Phosphatase 108 U/L (46-116) Total Protein 5.7 g/dL (6.4-8.2) Albumin 1.6 g/dL (3.4-5.0) Albumin/Globulin Ratio 0.4 (1.0-1.7) Test 02/05/20 06:21 02/05/20 08:09 Glucose (Fingerstick) 164 mg/dL (70-99) O2 Saturation 85 % (92-99) Arterial Blood pH 7.31 (7.35-7.45) Arterial Blood pCO2 at Patient Temp 50 mmHg (35-46) Arterial Blood pO2 at Patient Temp 53 mmHg (75-108) Arterial Blood HCO3 24 mmol/L (21-28) Arterial Blood Base Excess -2 mmol/L (-3-3) FiO2 100 Laboratory Tests Test 02/04/20 12:02 02/04/20 12:21 02/04/20 17:57 02/04/20 23:57 Glucose (Fingerstick) 211 mg/dL (70-99) 179 mg/dL (70-99) 176 mg/dL (70-99) D-Dimer (Kassy) 4.86 ug/mlFEU (0.00-0.50) Test 02/05/20 06:00 02/05/20 06:21 02/05/20 08:09 Sodium Level 144 mmol/L (136-145) Potassium Level 3.3 mmol/L (3.5-5.1) Chloride Level 109 mmol/L (98-107) Carbon Dioxide Level 28 mmol/L (21-32) Anion Gap 7 (6-14) Blood Urea Nitrogen 17 mg/dL (8-26) Creatinine 1.0 mg/dL (0.7-1.3) Estimated GFR (Cockcroft-Gault) 96.9 BUN/Creatinine Ratio 17 (6-20) Glucose Level 195 mg/dL (70-99) Calcium Level 7.5 mg/dL (8.5-10.1) Total Bilirubin 0.4 mg/dL (0.2-1.0) Aspartate Amino Transf (AST/SGOT) 33 U/L (15-37) Alanine Aminotransferase (ALT/SGPT) 13 U/L (16-63) Alkaline Phosphatase 108 U/L (46-116) Total Protein 5.7 g/dL (6.4-8.2) Albumin 1.6 g/dL (3.4-5.0) Albumin/Globulin Ratio 0.4 (1.0-1.7) Glucose (Fingerstick) 164 mg/dL (70-99) O2 Saturation 85 % (92-99) Arterial Blood pH 7.31 (7.35-7.45) Arterial Blood pCO2 at Patient Temp 50 mmHg (35-46) Arterial Blood pO2 at Patient Temp 53 mmHg (75-108) Arterial Blood HCO3 24 mmol/L (21-28) Arterial Blood Base Excess -2 mmol/L (-3-3) FiO2 100 Microbiology 02/02/20 Blood Culture - Preliminary, Resulted NO GROWTH AFTER 2 DAYS Medications Current Medications Sodium Chloride 1,000 ml @ 1,000 mls/hr 1X ONCE IV Last administered on 02/02/20at 16:48; Start 02/02/20 at 15:45; Stop 02/02/20 at 16:44; Status DC Etomidate (Amidate) 20 mg 1X ONCE IV Last administered on 02/02/20at 15:54; Start 02/02/20 at 15:45; Stop 02/02/20 at 15:52; Status DC Rocuronium [place] (Zemuron) 50 mg 1X ONCE IV Last administered on 02/02/20at 15:55; Start 02/02/20 at 15:45; Stop 02/02/20 at 15:52; Status DC Propofol 100 ml @ 0 mls/hr CONT PRN IV SEE PROTOCOL Last administered on 02/02/20at 16:33; Start 02/02/20 at 15:45; Stop 02/02/20 at 17:44; Status DC Chlorhexidine Gluconate (Peridex) 15 ml BID MM ; Start 02/02/20 at 21:00; Stop 02/02/20 at 17:39; Status DC Fentanyl Citrate (Fentanyl 2ml Vial) 100 mcg 1X ONCE IV Last administered on 02/02/20at 16:34; Start 02/02/20 at 16:15; Stop 02/02/20 at 16:16; Status DC Sodium Chloride 1,000 ml @ 1,000 mls/hr 1X ONCE IV Last administered on 02/02/20at 16:15; Start 02/02/20 at 16:15; Stop 02/02/20 at 17:20; Status DC Aspirin (Aspirin Rectal Supp) 300 mg 1X ONCE [place] Last administered on 02/02/20at 16:35; Start 02/02/20 at 16:15; Stop 02/02/20 at 16:17; Status DC Acetaminophen (Tylenol) 650 mg PRN Q6HRS PRN PO Headaches, Temp > 101.5'; Start 02/02/20 at 16:15 Prochlorperazine Edisylate (Compazine) 5 mg PRN Q6HRS PRN IVP NAUSEA/VOMITING; Start 02/02/20 at 16:15 Prochlorperazine (Compazine) 25 mg PRN Q12HR PRN [place] NAUSEA/VOMITING; Start 02/02/20 at 16:15 Info (Icu Electrolyte Protocol) 1 ea DAILY MC ; Start 02/03/20 at 09:00 Heparin Sodium (Porcine) (Heparin Sodium) 5,000 unit Q8HRS SQ Last administered on 02/04/20at 05:32; Start 02/02/20 at 22:00; Stop 02/04/20 at 14:45; Status DC Sodium Chloride (Normal Saline Flush) 3 ml QSHIFT PRN IV AFTER MEDS AND BLOOD DRAWS; Start 02/02/20 at 16:15 Oxycodone/ Acetaminophen (Percocet 5/325) 1 tab PRN Q4HRS PRN PO MILD PAIN, 1ST CHOICE; Start 02/02/20 at 16:15 Morphine Sulfate (Morphine Sulfate) 2 mg PRN Q1HR PRN IV PAIN; Start 02/02/20 at 16:15 Senna/Docusate Sodium (Senna Plus) 1 tab BID PO Last administered on 02/05/20at 08:30; Start 02/02/20 at 21:00 Docusate Sodium (Colace) 100 mg BID PO ; Start 02/02/20 at 21:00; Stop 02/04/20 at 19:30; Status DC Lactulose (Lactulose) 20 gm PRN Q12HR PRN PO CONSTIPATION; Start 02/02/20 at 16:15 Amlodipine Besylate (Norvasc) 10 mg HS PO Last administered on 02/04/20at 21:35; Start 02/02/20 at 21:00 Aspirin (Grover Aspirin) 325 mg DAILY PO Last administered on 02/05/20at 08:30; Start 02/03/20 at 09:00 Atorvastatin Calcium (Lipitor) 20 mg QHS PO Last administered on 02/04/20at 21:35; Start 02/02/20 at 21:00 Acetaminophen/ Butalbital/ Caffeine (Fioricet) 1 tab PRN Q6HRS PRN PO MIGRAINE HEADACHE- 1ST CHOICE; Start 02/02/20 at 16:15 Hydrochlorothiazide (Hydrodiuril) 25 mg DAILY PO ; Start 02/03/20 at 09:00 Isosorbide Dinitrate (Isordil) 10 mg TID PO Last administered on 02/04/20at 21:36; Start 02/02/20 at 21:00 Lisinopril (Prinivil) 40 mg DAILY PO Last administered on 02/03/20at 07:56; Start 02/03/20 at 09:00 Metoprolol Tartrate (Lopressor) 50 mg BID PO Last administered on 02/04/20at 21:35; Start 02/02/20 at 21:00 Non-Formulary Medication (Hydrochlorothiazide (Hydrochlorothiazide Tablet)) 25 mg DAILY PO ; Start 02/03/20 at 09:00; Status UNV Non-Formulary Medication (Insulin Aspart (Novolog)) 25 unit TIDWMEALS SQ ; Start 02/02/20 at 17:00; Status UNV Non-Formulary Medication (Insulin Glargine,Hum.rec.anlog (Lantus Solostar)) 80 unit QHS SQ ; Start 02/02/20 at 21:00; Status UNV Non-Formulary Medication (Isosorbide Dinitrate ) 20 mg DAILY PO ; Start 02/03/20 at 09:00; Status UNV Meclizine HCl (Antivert) 25 mg PRN Q6HRS PRN PO NAUSEA- 2ND CHOICE; Start 02/02/20 at 17:45 Metformin HCl (Glucophage) 1,000 mg BIDWMEALS PO ; Start 02/02/20 at 17:00 Ketotifen Fumarate (Zaditor) 1 drop BID OU Last administered on 02/05/20at 08:30; Start 02/02/20 at 21:00 Pantoprazole Sodium (PROTONIX VIAL for IV PUSH) 40 mg DAILYAC IVP Last administered on 02/05/20at 08:27; Start 02/03/20 at 07:30 Ondansetron HCl (Zofran Odt) 4 mg PRN Q8HRS PRN PO NAUSEA/VOMITING, 1ST CHOICE PO; Start 02/02/20 at 17:45 Sumatriptan Succinate (Imitrex) 50 mg PRN BID PRN PO MIGRAINE HEADACHE; Start 02/02/20 at 17:45 Non-Formulary Medication (Terazosin Hcl ) 2 cap QHS PO ; Start 02/02/20 at 21:00; Status UNV Venlafaxine HCl (Effexor) 150 mg BID PO Last administered on 02/05/20at 08:30; Start 02/02/20 at 21:00 Fentanyl Citrate 30 ml @ 0 mls/hr CONT PRN IV SEE PROTOCOL Last administered on 02/05/20at 05:22; Start 02/02/20 at 16:30 Propofol 100 ml @ 0 mls/hr CONT PRN IV SEE PROTOCOL Last administered on 02/05/20at 09:41; Start 02/02/20 at 16:30 Fentanyl Citrate (Fentanyl 2ml Vial) 25 mcg PRN Q1HR PRN IV SEE COMMENTS; Start 02/02/20 at 16:30 Fentanyl Citrate (Fentanyl 2ml Vial) 50 mcg PRN Q1HR PRN IV SEE COMMENTS; Start 02/02/20 at 16:30 Chlorhexidine Gluconate (Peridex) 15 ml BID MM Last administered on 02/05/20at 0 8:30; Start 02/02/20 at 21:00 Morphine Sulfate (Morphine Sulfate) 2 mg PRN Q1HR PRN IV SEE COMMENTS.; Start 02/02/20 at 16:30 Morphine Sulfate (Morphine Sulfate) 4 mg PRN Q1HR PRN IV SEE COMMENTS.; Start 02/02/20 at 16:30 Midazolam HCl (Versed) 1 mg PRN Q30MIN PRN IV SEE COMMENTS.; Start 02/02/20 at 16:30 Piperacillin Sod/ Tazobactam Sod 4.5 gm/Sodium Chloride 100 ml @ 200 mls/hr 1X ONCE IV Last administered on 02/02/20at 17:03; Start 02/02/20 at 16:30; Stop 02/02/20 at 16:59; Status DC Azithromycin 250 ml @ 250 mls/hr 1X ONCE IV Last administered on 02/02/20at 17:40; Start 02/02/20 at 16:30; Stop 02/02/20 at 17:34; Status DC Dexamethasone Sodium Phosphate (Decadron) 10 mg 1X ONCE IVP Last administered on 02/02/20at 16:54; Start 02/02/20 at 16:30; Stop 02/02/20 at 16:33; Status DC Midazolam HCl (Versed) 5 mg 1X ONCE IV Last administered on 02/02/20at 16:35; Start 02/02/20 at 16:45; Stop 02/02/20 at 16:46; Status DC Insulin Human Regular (HumuLIN R VIAL) 8 unit 1X ONCE SQ Last administered on 02/02/20at 16:51; Start 02/02/20 at 16:45; Stop 02/02/20 at 16:46; Status DC Sodium Chloride 1,000 ml @ 500 mls/hr Q2H IV Last administered on 02/02/20at 18:33; Start 02/02/20 at 16:36; Stop 02/02/20 at 18:35; Status DC Insulin Human Regular 100 unit/ Sodium Chloride 101 ml @ 0 mls/hr CONT PRN PRN IV PER PROTOCOL Last administered on 02/03/20at 02:08; Start 02/02/20 at 16:45; Stop 02/03/20 at 02:31; Status DC Insulin Human Regular 100 ml @ As Directed STK-MED ONCE IV ; Start 02/02/20 at 16:41; Stop 02/02/20 at 16:41; Status DC Etomidate (Amidate) 20 mg 1X ONCE IV ; Start 02/02/20 at 17:15; Stop 02/02/20 at 17:22; Status DC Rocuronium [place] (Zemuron) 50 mg 1X ONCE IV ; Start 02/02/20 at 17:15; Stop 02/02/20 at 17:34; Status DC Piperacillin Sod/ Tazobactam Sod 3.375 gm/Sodium Chloride 50 ml @ 100 mls/hr Q6HRS IV Last administered on 02/05/20at 06:24; Start 02/03/20 at 00:00 Sodium Chloride 1,000 ml @ 250 mls/hr Q4H IV Last administered on 02/02/20at 18:43; Start 02/02/20 at 18:45; Stop 02/02/20 at 22:40; Status DC Pantoprazole Sodium (PROTONIX VIAL for IV PUSH) 40 mg 1X ONCE IVP Last administered on 02/02/20at 22:47; Start 02/02/20 at 20:15; Stop 02/02/20 at 20:40; Status DC Labetalol HCl (Normodyne Iv Push) 10 mg PRN Q4HRS PRN IVP HYPERTENSION Last administered on 02/04/20at 05:20; Start 02/02/20 at 20:15 Dextrose/Sodium Chloride 1,000 ml @ 250 mls/hr Q4H IV Last administered on 02/03/20at 07:59; Start 02/02/20 at 22:45; Stop 02/03/20 at 11:23; Status DC Insulin Human Regular 100 unit/ Sodium Chloride 101 ml @ 0 mls/hr CONT PRN IV SEE I/O RECORD; Start 02/03/20 at 02:15 Potassium Chloride/Water 100 ml @ 100 mls/hr PRN Q1HR PRN IV SEE COMMENTS; Start 02/03/20 at 05:00 Potassium Chloride/Water 100 ml @ 100 mls/hr Q1H IV Last administered on 01/17 03/07at 07:58; Start 02/03/20 at 05:00; Stop 02/03/20 at 08:59; Status DC Insulin Glargine (Lantus Syringe) 18 unit BID SQ Last administered on 02/05/20at 08:47; Start 02/03/20 at 09:00 Insulin Human Lispro (HumaLOG) 0-9 UNITS Q6HRS SQ Last administered on 02/04/20at 12:12; Start 02/03/20 at 12:00 Dextrose (Dextrose 50%-Water Syringe) 12.5 gm PRN Q15MIN PRN IV SEE COMMENTS; Start 02/03/20 at 06:15 Sodium Chloride 1,000 ml @ 125 mls/hr 1X ONCE IV Last administered on 02/03/20at 12:01; Start 02/03/20 at 11:30; Stop 02/03/20 at 19:29; Status DC Vecuronium [place] (Norcuron Bolus) 10 mg PRN Q6HRS PRN IV SEDATION Last administered on 02/04/20at 12:09; Start 02/04/20 at 07:30; Stop 02/04/20 at 19:30; Status DC Potassium Chloride/Water 100 ml @ 100 mls/hr 1X ONCE IV Last administered on 02/04/20at 10:04; Start 02/04/20 at 10:00; Stop 02/04/20 at 10:59; Status DC Tocilizumab 400 mg/Sodium Chloride 100 ml @ 100 mls/hr 1X ONCE IV Last administered on 02/04/20at 14:53; Start 02/04/20 at 13:00; Stop 02/04/20 at 13:59; Status DC Enoxaparin Sodium (Lovenox 40mg Syringe) 40 mg BID SQ Last administered on 02/05/20at 08:26; Start 02/04/20 at 21:00 Sodium Chloride 1,000 ml @ 125 mls/hr Q8H IV Last administered on 02/05/20at 08:25; Start 02/04/20 at 16:00 Vecuronium [place] (Norcuron Bolus) 10 mg PRN Q1HR PRN IV SEDATION Last administered on 02/05/20at 09:20; Start 02/04/20 at 19:30 Docusate Sodium (Colace Solution) 100 mg DAILY PO Last administered on 02/05/20at 08:30; Start 02/05/20 at 09:00 Norepinephrine Bitartrate 8 mg/ Dextrose 258 ml @ 15.519 mls/ hr CONT PRN IV PER PROTOCOL Last administered on 02/04/20at 22:48; Start 02/04/20 at 22:30 Potassium Bicarbonate (Potassium Effervescent Tablet) 40 meq 1X ONCE PO Last administered on 02/05/20at 08:26; Start 02/05/20 at 07:45; Stop 02/05/20 at 07:46; Status DC Midazolam HCl 100 mg/Sodium Chloride 100 ml @ 1 mls/hr CONT PRN IV .; Start 02/05/20 at 10:00 Active Scripts Active Aspirin 325 Mg Tablet 325 Mg PO DAILY Mxomyo-Ucskyiwp-Hdma 50-325-40 (Butalb/Acetaminophen/Caffeine) 1 Each Tablet 1-2 Tab PO PRN Q4HRS PRN MDD 6 tablets 2 Days Ondansetron Odt (Ondansetron) 4 Mg Tab.rapdis 1 Tab PO PRN Q6-8HRS PRN Qhfwvr-Yndmeblw-Tcrv 50-325-40 (Butalb/Acetaminophen/Caffeine) 1 Each Tablet 1 Each PO Q6HRS PRN Reported Venlafaxine Hcl Er (Venlafaxine Hcl) 150 Mg Tab.er.24 1 Tab PO BID Novolog (Insulin Aspart) 100 Unit/1 Ml Cartridge 25 Unit SQ TIDWMEALS Metformin Hcl 1,000 Mg Tablet 1,000 Mg PO BIDWMEALS Zofran (Ondansetron Hcl) 4 Mg Tablet 1 Tab PO Q6HRS Terazosin Hcl 2 Mg Capsule 2 Cap PO QHS Lantus Solostar (Insulin Glargine,Hum.rec.anlog) 100 Unit/1 Ml Insuln.pen 80 Unit SQ QHS Metoprolol Tartrate 50 Mg Tablet 1 Tab PO BID Omeprazole 20 Mg Capsule.dr 20 Mg PO BID Lisinopril 40 Mg Tablet 1 Tab PO DAILY Imitrex (Sumatriptan Succinate) 50 Mg Tablet 50 Mg PO PRN BID PRN Hydrochlorothiazide Tablet (Hydrochlorothiazide) 12.5 Mg Tablet 25 Mg PO DAILY Meclizine Hcl 25 Mg Tablet 25 Mg PO PRN TID PRN 90 Days Patanol (Olopatadine Hcl) 5 Ml Drops 1 Drop EACHEYE BID Atorvastatin Calcium 20 Mg Tablet 1 Tab PO DAILY Isosorbide Mononitrate 20 Mg Tablet 20 Mg PO BID Amlodipine Besylate 10 Mg Tablet 10 Mg PO HS Isosorbide Dinitrate 30 Mg Tablet 20 Mg PO DAILY Hydrochlorothiazide Tablet (Hydrochlorothiazide) 25 Mg Tablet 25 Mg PO DAILY Vitals/I & O Vital Sign - Last 24 Hours 02/04/20 02/04/20 02/04/20 02/04/20 11:00 11:21 11:46 11:51 Pulse 76 Resp 20 B/P (MAP) 114/73 (87) Pulse Ox 96 96 95 95 O2 Delivery Ventilator Ventilator O2 Flow Rate 15.0 15.0 02/04/20 02/04/20 02/04/20 02/04/20 12:00 12:00 13:00 13:15 Temp 98.7 98.7 Pulse 72 76 Resp 20 20 B/P (MAP) 129/73 (91) 132/68 (89) Pulse Ox 93 93 97 O2 Delivery Ventilator Mechanical Ventilator Ventilator Ventilator 02/04/20 02/04/20 02/04/20 02/04/20 14:00 15:00 16:00 16:00 Temp 98.9 98.9 Pulse 74 75 75 Resp 20 20 20 B/P (MAP) 136/62 (86) 141/83 (102) 119/78 (92) Pulse Ox 93 91 91 O2 Delivery Ventilator Ventilator Mechanical Ventilator Ventilator 02/04/20 02/04/20 02/04/20 02/04/20 16:03 17:00 18:00 18:03 Pulse 75 75 Resp 20 20 B/P (MAP) 119/77 (91) 121/78 (92) Pulse Ox 92 91 91 92 O2 Delivery Ventilator Ventilator Ventilator O2 Flow Rate 15.0 02/04/20 02/04/20 02/04/20 02/04/20 18:25 19:00 20:00 20:00 Temp 98.4 98.4 Pulse 85 88 Resp 20 20 B/P (MAP) 145/64 (91) 127/57 (80) Pulse Ox 92 95 97 O2 Delivery Ventilator Ventilator Mechanical Ventilator Ventilator 02/04/20 02/04/20 02/04/20 02/04/20 20:06 21:00 21:35 21:35 Pulse 88 88 88 Resp 20 B/P (MAP) 92/60 (71) Pulse Ox 92 96 O2 Delivery Ventilator Ventilator 02/04/20 02/04/20 02/04/20 02/04/20 21:36 22:00 23:00 23:36 Pulse 88 66 63 Resp 20 20 20 B/P (MAP) 100/52 (68) 189/68 (108) Pulse Ox 94 100 O2 Delivery Ventilator Ventilator Ventilator 02/05/20 02/05/20 02/05/20 02/05/20 00:00 00:00 00:01 00:10 Temp 98.7 98.7 Pulse 65 Resp 20 20 B/P (MAP) 127/78 (94) Pulse Ox 96 98 O2 Delivery Mechanical Ventilator Ventilator Ventilator Ventilator 02/05/20 02/05/20 02/05/20 02/05/20 01:00 02:00 03:00 04:00 Temp 98.8 98.8 Pulse 65 62 63 61 Resp 20 20 20 20 B/P (MAP) 134/80 (98) 141/85 (103) 149/91 (110) 152/90 (110) Pulse Ox 97 91 97 97 O2 Delivery Ventilator Ventilator Ventilator Ventilator 02/05/20 02/05/20 02/05/20 02/05/20 04:00 05:00 05:12 05:52 Pulse 63 Resp 20 20 B/P (MAP) 159/91 (113) Pulse Ox 98 98 O2 Delivery Mechanical Ventilator Ventilator Ventilator Ventilator 02/05/20 02/05/20 02/05/20 02/05/20 06:00 07:00 08:00 08:00 Temp 97.9 97.9 Pulse 62 60 60 Resp 20 20 20 B/P (MAP) 163/92 (115) 161/90 (113) 157/89 (111) Pulse Ox 98 98 97 O2 Delivery Ventilator Ventilator Ventilator Mechanical Ventilator 02/05/20 02/05/20 08:01 09:00 Pulse 62 Resp 24 B/P (MAP) 124/77 (93) Pulse Ox 96 94 O2 Delivery Ventilator Ventilator Intake and Output 02/04/20 02/04/20 02/05/20 15:00 23:00 07:00 Intake Total 2020.3 ml Output Total 450 ml 345 ml 690 ml Balance -450 ml -345 ml 1330.3 ml RENU TAI MD Feb 05, 2020 10:08
--- NOTE | 2020-02-05 10:36 | PDOC2 ---
CONSULT Date of Consult Date of Consult DATE: 02/05/20 TIME: 10:28 Reason for Consult Reason for Consult: Electrolyte abnormality Identification/Chief Complaint Chief Complaint Unable to Obtain - 2/2 intubated and MV Source Source: Chart review, Patient History of Present Illness Reason for Visit: Patient is a 49 year old male with past medical history of CVA and last admission late in 2019 for acute lacunar infarct who was in his usual state of health until the day of presentation when EMs services were called to his household. Patient was reported to be obtunded and he was transported to the ER . History is from review of chart and report from ER physician, patient is currently intubated and sedated. Patient has a past medical history of diabetes and hypertension as well . Patient was found to be severely dehydrated, and he was not able to maintain his airway due to his encephalopathy. He is CoVid Positive Past Medical History Cardiovascular: CAD, HTN CENTRAL NERVOUS SYSTEM: CVA, Periperal neuropathy Musculoskeletal: low back pain Rheumatologic: Fibromyalgia Endocrine: Diabetes Past Surgical History Past Surgical History: No pertinent history Family History Family History: No Significant, Family History Unknown Social History ALCOHOL: none Drugs: None Current Problem List Problem List Problems Medical Problems: (1) Acute metabolic encephalopathy Status: Acute (2) Acute renal insufficiency Status: Acute (3) DKA (diabetic ketoacidoses) Status: Acute (4) Pneumonia Status: Acute (5) Respiratory failure with hypoxia Status: Acute (6) Suspected 2019 novel coronavirus infection Status: Acute Current Medications Current Medications Current Medications Sodium Chloride 1,000 ml @ 1,000 mls/hr 1X ONCE IV Last administered on 02/02/20at 16:48; Start 02/02/20 at 15:45; Stop 02/02/20 at 16:44; Status DC Etomidate (Amidate) 20 mg 1X ONCE IV Last administered on 02/02/20at 15:54; Start 02/02/20 at 15:45; Stop 02/02/20 at 15:52; Status DC Rocuronium Weldon (Zemuron) 50 mg 1X ONCE IV Last administered on 02/02/20at 15:55; Start 02/02/20 at 15:45; Stop 02/02/20 at 15:52; Status DC Propofol 100 ml @ 0 mls/hr CONT PRN IV SEE PROTOCOL Last administered on 02/02/20at 16:33; Start 02/02/20 at 15:45; Stop 02/02/20 at 17:44; Status DC Chlorhexidine Gluconate (Peridex) 15 ml BID MM ; Start 02/02/20 at 21:00; Stop 02/02/20 at 17:39; Status DC Fentanyl Citrate (Fentanyl 2ml Vial) 100 mcg 1X ONCE IV Last administered on 02/02/20at 16:34; Start 02/02/20 at 16:15; Stop 02/02/20 at 16:16; Status DC Sodium Chloride 1,000 ml @ 1,000 mls/hr 1X ONCE IV Last administered on 02/02/20at 16:15; Start 02/02/20 at 16:15; Stop 02/02/20 at 17:20; Status DC Aspirin (Aspirin Rectal Supp) 300 mg 1X ONCE MI Last administered on 02/02/20at 16:35; Start 02/02/20 at 16:15; Stop 02/02/20 at 16:17; Status DC Acetaminophen (Tylenol) 650 mg PRN Q6HRS PRN PO Headaches, Temp > 101.5'; Start 02/02/20 at 16:15 Prochlorperazine Edisylate (Compazine) 5 mg PRN Q6HRS PRN IVP NAUSEA/VOMITING; Start 02/02/20 at 16:15 Prochlorperazine (Compazine) 25 mg PRN Q12HR PRN MI NAUSEA/VOMITING; Start 02/02/20 at 16:15 Info ([facility]cu Electrolyte Protocol) 1 ea DAILY MC ; Start 02/03/20 at 09:00 Heparin Sodium (Porcine) (Heparin Sodium) 5,000 unit Q8HRS SQ Last administered on 02/04/20at 05:32; Start 02/02/20 at 22:00; Stop 02/04/20 at 14:45; Status DC Sodium Chloride (Normal Saline Flush) 3 ml QSHIFT PRN IV AFTER MEDS AND BLOOD DRAWS; Start 02/02/20 at 16:15 Oxycodone/ Acetaminophen (Percocet 5/325) 1 tab PRN Q4HRS PRN PO MILD PAIN, 1ST CHOICE; Start 02/02/20 at 16:15 Morphine Sulfate (Morphine Sulfate) 2 mg PRN Q1HR PRN IV PAIN; Start 02/02/20 at 16:15 Senna/Docusate Sodium (Senna Plus) 1 tab BID PO Last administered on 02/05/20at 08:30; Start 02/02/20 at 21:00 Docusate Sodium (Colace) 100 mg BID PO ; Start 02/02/20 at 21:00; Stop 02/04/20 at 19:30; Status DC Lactulose (Lactulose) 20 gm PRN Q12HR PRN PO CONSTIPATION; Start 02/02/20 at 16:15 Amlodipine Besylate (Norvasc) 10 mg HS PO Last administered on 02/04/20at 21:35; Start 02/02/20 at 21:00 Aspirin (Grover Aspirin) 325 mg DAILY PO Last administered on 02/05/20at 08:30; Start 02/03/20 at 09:00 Atorvastatin Calcium (Lipitor) 20 mg QHS PO Last administered on 02/04/20at 21:35; Start 02/02/20 at 21:00 Acetaminophen/ Butalbital/ Caffeine (Fioricet) 1 tab PRN Q6HRS PRN PO MIGRAINE HEADACHE- 1ST CHOICE; Start 02/02/20 at 16:15 Hydrochlorothiazide (Hydrodiuril) 25 mg DAILY PO ; Start 02/03/20 at 09:00 Isosorbide Dinitrate (Isordil) 10 mg TID PO Last administered on 02/04/20at 21:36; Start 02/02/20 at 21:00 Lisinopril (Prinivil) 40 mg DAILY PO Last administered on 02/03/20at 07:56; Start 02/03/20 at 09:00 Metoprolol Tartrate (Lopressor) 50 mg BID PO Last administered on 02/04/20at 21:35; Start 02/02/20 at 21:00 Non-Formulary Medication (Hydrochlorothiazide (Hydrochlorothiazide Tablet)) 25 mg DAILY PO ; Start 02/03/20 at 09:00; Status UNV Non-Formulary Medication (Insulin Aspart (Novolog)) 25 unit TIDWMEALS SQ ; Start 02/02/20 at 17:00; Status UNV Non-Formulary Medication (Insulin Glargine,Hum.rec.anlog (Lantus Solostar)) 80 unit QHS SQ ; Start 02/02/20 at 21:00; Status UNV Non-Formulary Medication (Isosorbide Dinitrate ) 20 mg DAILY PO ; Start 02/03/20 at 09:00; Status UNV Meclizine HCl (Antivert) 25 mg PRN Q6HRS PRN PO NAUSEA- 2ND CHOICE; Start 02/02/20 at 17:45 Metformin HCl (Glucophage) 1,000 mg BIDWMEALS PO ; Start 02/02/20 at 17:00 Ketotifen Fumarate (Zaditor) 1 drop BID OU Last administered on 02/05/20at 08:30; Start 02/02/20 at 21:00 Pantoprazole Sodium (PROTONIX VIAL for IV PUSH) 40 mg DAILYAC IVP Last administered on 02/05/20at 08:27; Start 02/03/20 at 07:30 Ondansetron HCl (Zofran Odt) 4 mg PRN Q8HRS PRN PO NAUSEA/VOMITING, 1ST CHOICE PO; Start 02/02/20 at 17:45 Sumatriptan Succinate (Imitrex) 50 mg PRN BID PRN PO MIGRAINE HEADACHE; Start 02/02/20 at 17:45 Non-Formulary Medication (Terazosin Hcl ) 2 cap QHS PO ; Start 02/02/20 at 21:00; Status UNV Venlafaxine HCl (Effexor) 150 mg BID PO Last administered on 02/05/20at 08:30; Start 02/02/20 at 21:00 Fentanyl Citrate 30 ml @ 0 mls/hr CONT PRN IV SEE PROTOCOL Last administered on 02/05/20at 05:22; Start 02/02/20 at 16:30 Propofol 100 ml @ 0 mls/hr CONT PRN IV SEE PROTOCOL Last administered on 02/05/20at 09:41; Start 02/02/20 at 16:30 Fentanyl Citrate (Fentanyl 2ml Vial) 25 mcg PRN Q1HR PRN IV SEE COMMENTS; Start 02/02/20 at 16:30 Fentanyl Citrate (Fentanyl 2ml Vial) 50 mcg PRN Q1HR PRN IV SEE COMMENTS; Start 02/02/20 at 16:30 Chlorhexidine Gluconate (Peridex) 15 ml BID MM Last administered on 02/05/20at 08:30; Start 02/02/20 at 21:00 Morphine Sulfate (Morphine Sulfate) 2 mg PRN Q1HR PRN IV SEE COMMENTS.; Start 02/02/20 at 16:30 Morphine Sulfate (Morphine Sulfate) 4 mg PRN Q1HR PRN IV SEE COMMENTS.; Start 02/02/20 at 16:30 Midazolam HCl (Versed) 1 mg PRN Q30MIN PRN IV SEE COMMENTS.; Start 02/02/20 at 16:30 Piperacillin Sod/ Tazobactam Sod 4.5 gm/Sodium Chloride 100 ml @ 200 mls/hr 1X ONCE IV Last administered on 02/02/20at 17:03; Start 02/02/20 at 16:30; Stop 02/02/20 at 16:59; Status DC Azithromycin 250 ml @ 250 mls/hr 1X ONCE IV Last administered on 02/02/20at 17:40; Start 02/02/20 at 16:30; Stop 02/02/20 at 17:34; Status DC Dexamethasone Sodium Phosphate (Decadron) 10 mg 1X ONCE IVP Last administered on 02/02/20at 16:54; Start 02/02/20 at 16:30; Stop 02/02/20 at 16:33; Status DC Midazolam HCl (Versed) 5 mg 1X ONCE IV Last administered on 02/02/20at 16:35; Start 02/02/20 at 16:45; Stop 02/02/20 at 16:46; Status DC Insulin Human Regular (HumuLIN R VIAL) 8 unit 1X ONCE SQ Last administered on 02/02/20at 16:51; Start 02/02/20 at 16:45; Stop 02/02/20 at 16:46; Status DC Sodium Chloride 1,000 ml @ 500 mls/hr Q2H IV Last administered on 02/02/20at 18:33; Start 02/02/20 at 16:36; Stop 02/02/20 at 18:35; Status DC Insulin Human Regular 100 unit/ Sodium Chloride 101 ml @ 0 mls/hr CONT PRN PRN IV PER PROTOCOL Last administered on 02/03/20at 02:08; Start 02/02/20 at 16:45; Stop 02/03/20 at 02:31; Status DC Insulin Human Regular 100 ml @ As Directed STK-MED ONCE IV ; Start 02/02/20 at 16:41; Stop 02/02/20 at 16:41; Status DC Etomidate (Amidate) 20 mg 1X ONCE IV ; Start 02/02/20 at 17:15; Stop 02/02/20 at 17:22; Status DC Rocuronium Weldon (Zemuron) 50 mg 1X ONCE IV ; Start 02/02/20 at 17:15; Stop 02/02/20 at 17:34; Status DC Piperacillin Sod/ Tazobactam Sod 3.375 gm/Sodium Chloride 50 ml @ 100 mls/hr Q6HRS IV Last administered on 02/05/20at 06:24; Start 02/03/20 at 00:00 Sodium Chloride 1,000 ml @ 250 mls/hr Q4H IV Last administered on 02/02/20at 18:43; Start 02/02/20 at 18:45; Stop 02/02/20 at 22:40; Status DC Pantoprazole Sodium (PROTONIX VIAL for IV PUSH) 40 mg 1X ONCE IVP Last administered on 02/02/20at 22:47; Start 02/02/20 at 20:15; Stop 02/02/20 at 20:40; Status DC Labetalol HCl (Normodyne Iv Push) 10 mg PRN Q4HRS PRN IVP HYPERTENSION Last administered on 02/04/20at 05:20; Start 02/02/20 at 20:15 Dextrose/Sodium Chloride 1,000 ml @ 250 mls/hr Q4H IV Last administered on 02/03/20at 07:59; Start 02/02/20 at 22:45; Stop 02/03/20 at 11:23; Status DC Insulin Human Regular 100 unit/ Sodium Chloride 101 ml @ 0 mls/hr CONT PRN IV SEE I/O RECORD; Start 02/03/20 at 02:15 Potassium Chloride/Water 100 ml @ 100 mls/hr PRN Q1HR PRN IV SEE COMMENTS; Start 02/03/20 at 05:00 Potassium Chloride/Water 100 ml @ 100 mls/hr Q1H IV Last administered on 02/03/20at 07:58; Start 02/03/20 at 05:00; Stop 02/03/20 at 08:59; Status DC Insulin Glargine (Lantus Syringe) 18 unit BID SQ Last administered on 02/05/20at 08:47; Start 02/03/20 at 09:00 Insulin Human Lispro (HumaLOG) 0-9 UNITS Q6HRS SQ Last administered on 02/04/20at 12:12; Start 02/03/20 at 12:00 Dextrose (Dextrose 50%-Water Syringe) 12.5 gm PRN Q15MIN PRN IV SEE COMMENTS; Start 02/03/20 at 06:15 Sodium Chloride 1,000 ml @ 125 mls/hr 1X ONCE IV Last administered on 02/03/20at 12:01; Start 02/03/20 at 11:30; Stop 02/03/20 at 19:29; Status DC Vecuronium Weldon (Norcuron Bolus) 10 mg PRN Q6HRS PRN IV SEDATION Last administered on 02/04/20at 12:09; Start 02/04/20 at 07:30; Stop 02/04/20 at 19:30; Status DC Potassium Chloride/Water 100 ml @ 100 mls/hr 1X ONCE IV Last administered on 02/04/20at 10:04; Start 02/04/20 at 10:00; Stop 02/04/20 at 10:59; Status DC Tocilizumab 400 mg/Sodium Chloride 100 ml @ 100 mls/hr 1X ONCE IV Last administered on 02/04/20at 14:53; Start 02/04/20 at 13:00; Stop 02/04/20 at 13:59; Status DC Enoxaparin Sodium (Lovenox 40mg Syringe) 40 mg BID SQ Last administered on 02/05/20at 08:26; Start 02/04/20 at 21:00 Sodium Chloride 1,000 ml @ 125 mls/hr Q8H IV Last administered on 02/05/20at 08:25; Start 02/04/20 at 16:00 Vecuronium Weldon (Norcuron Bolus) 10 mg PRN Q1HR PRN IV SEDATION Last administered on 02/05/20at 09:20; Start 02/04/20 at 19:30 Docusate Sodium (Colace Solution) 100 mg DAILY PO Last administered on 02/05/20at 08:30; Start 02/05/20 at 09:00 Norepinephrine Bitartrate 8 mg/ Dextrose 258 ml @ 15.519 mls/ hr CONT PRN IV PER PROTOCOL Last administered on 02/04/20at 22:48; Start 02/04/20 at 22:30 Potassium Bicarbonate (Potassium Effervescent Tablet) 40 meq 1X ONCE PO Last administered on 02/05/20at 08:26; Start 02/05/20 at 07:45; Stop 02/05/20 at 07:46; Status DC Midazolam HCl 100 mg/Sodium Chloride 100 ml @ 1 mls/hr CONT PRN IV .; Start 02/05/20 at 10:00 Active Scripts Active Aspirin 325 Mg Tablet 325 Mg PO DAILY [id number] 50-325-40 (Butalb/Acetaminophen/Caffeine) 1 Each Tablet 1-2 Tab PO PRN Q4HRS PRN MDD 6 tablets 2 Days Ondansetron Odt (Ondansetron) 4 Mg Tab.rapdis 1 Tab PO PRN Q6-8HRS PRN [id number] 50-325-40 (Butalb/Acetaminophen/Caffeine) 1 Each Tablet 1 Each PO Q6HRS PRN Reported Venlafaxine Hcl Er (Venlafaxine Hcl) 150 Mg Tab.er.24 1 Tab PO BID Novolog (Insulin Aspart) 100 Unit/1 Ml Cartridge 25 Unit SQ TIDWMEALS Metformin Hcl 1,000 Mg Tablet 1,000 Mg PO BIDWMEALS Zofran (Ondansetron Hcl) 4 Mg Tablet 1 Tab PO Q6HRS Terazosin Hcl 2 Mg Capsule 2 Cap PO QHS Lantus Solostar (Insulin Glargine,Hum.rec.anlog) 100 Unit/1 Ml Insuln.pen 80 Unit SQ QHS Metoprolol Tartrate 50 Mg Tablet 1 Tab PO BID Omeprazole 20 Mg Capsule.dr 20 Mg PO BID Lisinopril 40 Mg Tablet 1 Tab PO DAILY Imitrex (Sumatriptan Succinate) 50 Mg Tablet 50 Mg PO PRN BID PRN Hydrochlorothiazide Tablet (Hydrochlorothiazide) 12.5 Mg Tablet 25 Mg PO DAILY Meclizine Hcl 25 Mg Tablet 25 Mg PO PRN TID PRN 90 Days Patanol (Olopatadine Hcl) 5 Ml Drops 1 Drop EACHEYE BID Atorvastatin Calcium 20 Mg Tablet 1 Tab PO DAILY Isosorbide Mononitrate 20 Mg Tablet 20 Mg PO BID Amlodipine Besylate 10 Mg Tablet 10 Mg PO HS Isosorbide Dinitrate 30 Mg Tablet 20 Mg PO DAILY Hydrochlorothiazide Tablet (Hydrochlorothiazide) 25 Mg Tablet 25 Mg PO DAILY Allergies Allergies: Coded Allergies: No Known Drug Allergies (Unverified , 12/18/13) ROS Review of System Unable to Obtain 2/2 MV Physical Exam Physical Exam GEN.: On MV HEENT: Intubated NECK: Supple. LUNGS: Coarse breath sounds HEART: RRR, S1, S2 present. ABDOMEN: Soft, non distended. EXTREMITIES: Without any cyanosis or edema NEUROLOGIC: Sedated PSYCHIATRIC: uanble to obtain . SKIN: No rash Thomas + Vital Signs Vital Signs Date Time Temp Pulse Resp B/P (MAP) Pulse Ox O2 Delivery O2 Flow Rate FiO2 02/05/20 09:00 62 24 124/77 (93) 94 Ventilator 02/05/20 08:00 97.9 97.9 02/04/20 18:03 15.0 Assessment & Plan Hypokalemia - 2/2 DKA , replace per ICU protocol CHRISTIANNE- severe dehydration , DKA , resolved UA unremarkable Toxic and metabolic encephalopathy Suspect gram negative organism pneumonia POS COVID 19 infection DKA/ metabolic acidosis Hypernatremia at presentation on 02/01 History of essential hypertension History of CVA Diabetes mellitus type 2 insulin requiring Labs Labs Laboratory Tests Test 02/03/20 10:58 02/03/20 16:49 02/03/20 21:57 02/03/20 23:42 Glucose (Fingerstick) 159 mg/dL (70-99) 241 mg/dL (70-99) 253 mg/dL (70-99) 275 mg/dL (70-99) Test 02/04/20 03:20 02/04/20 05:27 02/04/20 07:30 02/04/20 12:02 White Blood Count 10.8 x10^3/uL (4.0-11.0) Red Blood Count 5.27 x10^6/uL (4.30-5.70) Hemoglobin 15.4 g/dL (13.0-17.5) Hematocrit 46.2 % (39.0-53.0) Mean Corpuscular Volume 88 fL (79-100) Mean Corpuscular Hemoglobin 29 pg (25-35) Mean Corpuscular Hemoglobin Concent 33 g/dL (31-37) Red Cell Distribution Width 14.3 % (11.5-14.5) Platelet Count 180 x10^3/uL (140-400) Neutrophils (%) (Auto) 88 % (31-73) Lymphocytes (%) (Auto) 6 % (24-48) Monocytes (%) (Auto) 4 % (0-9) Eosinophils (%) (Auto) 2 % (0-3) Basophils (%) (Auto) 0 % (0-3) Neutrophils # (Auto) 9.5 x10^3/uL (1.8-7.7) Lymphocytes # (Auto) 0.6 x10^3/uL (1.0-4.8) Monocytes # (Auto) 0.4 x10^3/uL (0.0-1.1) Eosinophils # (Auto) 0.2 x10^3/uL (0.0-0.7) Basophils # (Auto) 0.0 x10^3/uL (0.0-0.2) Sodium Level 148 mmol/L (136-145) Potassium Level 3.4 mmol/L (3.5-5.1) Chloride Level 111 mmol/L (98-107) Carbon Dioxide Level 24 mmol/L (21-32) Anion Gap 13 (6-14) Blood Urea Nitrogen 19 mg/dL (8-26) Creatinine 1.3 mg/dL (0.7-1.3) Estimated GFR (Cockcroft-Gault) 71.6 BUN/Creatinine Ratio 15 (6-20) Glucose Level 199 mg/dL (70-99) Calcium Level 8.8 mg/dL (8.5-10.1) Total Bilirubin 0.3 mg/dL (0.2-1.0) Aspartate Amino Transf (AST/SGOT) 30 U/L (15-37) Alanine Aminotransferase (ALT/SGPT) 12 U/L (16-63) Alkaline Phosphatase 80 U/L (46-116) Total Protein 6.9 g/dL (6.4-8.2) Albumin 2.2 g/dL (3.4-5.0) Albumin/Globulin Ratio 0.5 (1.0-1.7) Glucose (Fingerstick) 190 mg/dL (70-99) 211 mg/dL (70-99) O2 Saturation 91 % (92-99) Arterial Blood pH 7.43 (7.35-7.45) Arterial Blood pCO2 at Patient Temp 34 mmHg (35-46) Arterial Blood pO2 at Patient Temp 59 mmHg (75-108) Arterial Blood HCO3 22 mmol/L (21-28) Arterial Blood Base Excess -2 mmol/L (-3-3) FiO2 80 Test 02/04/20 12:21 02/04/20 17:57 02/04/20 23:57 02/05/20 06:00 D-Dimer (Kassy) 4.86 ug/mlFEU (0.00-0.50) Glucose (Fingerstick) 179 mg/dL (70-99) 176 mg/dL (70-99) Sodium Level 144 mmol/L (136-145) Potassium Level 3.3 mmol/L (3.5-5.1) Chloride Level 109 mmol/L (98-107) Carbon Dioxide Level 28 mmol/L (21-32) Anion Gap 7 (6-14) Blood Urea Nitrogen 17 mg/dL (8-26) Creatinine 1.0 mg/dL (0.7-1.3) Estimated GFR (Cockcroft-Gault) 96.9 BUN/Creatinine Ratio 17 (6-20) Glucose Level 195 mg/dL (70-99) Calcium Level 7.5 mg/dL (8.5-10.1) Total Bilirubin 0.4 mg/dL (0.2-1.0) Aspartate Amino Transf (AST/SGOT) 33 U/L (15-37) Alanine Aminotransferase (ALT/SGPT) 13 U/L (16-63) Alkaline Phosphatase 108 U/L (46-116) Total Protein 5.7 g/dL (6.4-8.2) Albumin 1.6 g/dL (3.4-5.0) Albumin/Globulin Ratio 0.4 (1.0-1.7) Test 02/05/20 06:21 02/05/20 08:09 Glucose (Fingerstick) 164 mg/dL (70-99) O2 Saturation 85 % (92-99) Arterial Blood pH 7.31 (7.35-7.45) Arterial Blood pCO2 at Patient Temp 50 mmHg (35-46) Arterial Blood pO2 at Patient Temp 53 mmHg (75-108) Arterial Blood HCO3 24 mmol/L (21-28) Arterial Blood Base Excess -2 mmol/L (-3-3) FiO2 100 Laboratory Tests Test 02/04/20 12:02 02/04/20 12:21 02/04/20 17:57 02/04/20 23:57 Glucose (Fingerstick) 211 mg/dL (70-99) 179 mg/dL (70-99) 176 mg/dL (70-99) D-Dimer (Kassy) 4.86 ug/mlFEU (0.00-0.50) Test 02/05/20 06:00 02/05/20 06:21 02/05/20 08:09 Sodium Level 144 mmol/L (136-145) Potassium Level 3.3 mmol/L (3.5-5.1) Chloride Level 109 mmol/L (98-107) Carbon Dioxide Level 28 mmol/L (21-32) Anion Gap 7 (6-14) Blood Urea Nitrogen 17 mg/dL (8-26) Creatinine 1.0 mg/dL (0.7-1.3) Estimated GFR (Cockcroft-Gault) 96.9 BUN/Creatinine Ratio 17 (6-20) Glucose Level 195 mg/dL (70-99) Calcium Level 7.5 mg/dL (8.5-10.1) Total Bilirubin 0.4 mg/dL (0.2-1.0) Aspartate Amino Transf (AST/SGOT) 33 U/L (15-37) Alanine Aminotransferase (ALT/SGPT) 13 U/L (16-63) Alkaline Phosphatase 108 U/L (46-116) Total Protein 5.7 g/dL (6.4-8.2) Albumin 1.6 g/dL (3.4-5.0) Albumin/Globulin Ratio 0.4 (1.0-1.7) Glucose (Fingerstick) 164 mg/dL (70-99) O2 Saturation 85 % (92-99) Arterial Blood pH 7.31 (7.35-7.45) Arterial Blood pCO2 at Patient Temp 50 mmHg (35-46) Arterial Blood pO2 at Patient Temp 53 mmHg (75-108) Arterial Blood HCO3 24 mmol/L (21-28) Arterial Blood Base Excess -2 mmol/L (-3-3) FiO2 100 Review All relevant outside records, renal labs, imaging studies, telemetry/EKG's were reviewed. Images Images Right IJ central venous catheter is identified with the distal tip projecting over the cavoatrial junction. No pneumothorax. Improved aeration of lungs with persistent bilateral mixed interstitial and alveolar airspace disease. YOLANDE KIM MD Feb 05, 2020 10:36
[2020-02-05] MEDS: MIDAZOLAM HCL 100 MG in IV NORMAL SALINE 100ML 100 ML IV PRN (11:24)
--- NOTE | 2020-02-05 11:29 | NUR ---
SS following up with discharge planning. SS reviewed pt chart and discussed with pt RN. Pt remains on the vent at this time. Pt on IV Zosyn. COVID19 positive. SS will continue to follow for discharge planning.
--- NOTE | 2020-02-05 11:31 | PDOC ---
PULMONARY PROGRESS NOTES Subjective worsening hypoxia AC mode 100%FIO2/ 10 PEEP Vitals Vital Signs Date Time Temp Pulse Resp B/P (MAP) Pulse Ox O2 Delivery O2 Flow Rate FiO2 02/05/20 10:00 62 24 139/62 (87) 99 Ventilator 02/05/20 08:00 97.9 97.9 02/04/20 18:03 15.0 Comments visual exam done due to COVID pandemia AC mode, no soa sedated/no edema Labs Laboratory Tests Test 02/03/20 16:49 02/03/20 21:57 02/03/20 23:42 02/04/20 03:20 Glucose (Fingerstick) 241 mg/dL (70-99) 253 mg/dL (70-99) 275 mg/dL (70-99) White Blood Count 10.8 x10^3/uL (4.0-11.0) Red Blood Count 5.27 x10^6/uL (4.30-5.70) Hemoglobin 15.4 g/dL (13.0-17.5) Hematocrit 46.2 % (39.0-53.0) Mean Corpuscular Volume 88 fL (79-100) Mean Corpuscular Hemoglobin 29 pg (25-35) Mean Corpuscular Hemoglobin Concent 33 g/dL (31-37) Red Cell Distribution Width 14.3 % (11.5-14.5) Platelet Count 180 x10^3/uL (140-400) Neutrophils (%) (Auto) 88 % (31-73) Lymphocytes (%) (Auto) 6 % (24-48) Monocytes (%) (Auto) 4 % (0-9) Eosinophils (%) (Auto) 2 % (0-3) Basophils (%) (Auto) 0 % (0-3) Neutrophils # (Auto) 9.5 x10^3/uL (1.8-7.7) Lymphocytes # (Auto) 0.6 x10^3/uL (1.0-4.8) Monocytes # (Auto) 0.4 x10^3/uL (0.0-1.1) Eosinophils # (Auto) 0.2 x10^3/uL (0.0-0.7) Basophils # (Auto) 0.0 x10^3/uL (0.0-0.2) Sodium Level 148 mmol/L (136-145) Potassium Level 3.4 mmol/L (3.5-5.1) Chloride Level 111 mmol/L (98-107) Carbon Dioxide Level 24 mmol/L (21-32) Anion Gap 13 (6-14) Blood Urea Nitrogen 19 mg/dL (8-26) Creatinine 1.3 mg/dL (0.7-1.3) Estimated GFR (Cockcroft-Gault) 71.6 BUN/Creatinine Ratio 15 (6-20) Glucose Level 199 mg/dL (70-99) Calcium Level 8.8 mg/dL (8.5-10.1) Total Bilirubin 0.3 mg/dL (0.2-1.0) Aspartate Amino Transf (AST/SGOT) 30 U/L (15-37) Alanine Aminotransferase (ALT/SGPT) 12 U/L (16-63) Alkaline Phosphatase 80 U/L (46-116) Total Protein 6.9 g/dL (6.4-8.2) Albumin 2.2 g/dL (3.4-5.0) Albumin/Globulin Ratio 0.5 (1.0-1.7) Test 02/04/20 05:27 02/04/20 07:30 02/04/20 12:02 02/04/20 12:21 Glucose (Fingerstick) 190 mg/dL (70-99) 211 mg/dL (70-99) O2 Saturation 91 % (92-99) Arterial Blood pH 7.43 (7.35-7.45) Arterial Blood pCO2 at Patient Temp 34 mmHg (35-46) Arterial Blood pO2 at Patient Temp 59 mmHg (75-108) Arterial Blood HCO3 22 mmol/L (21-28) Arterial Blood Base Excess -2 mmol/L (-3-3) FiO2 80 D-Dimer (Kassy) 4.86 ug/mlFEU (0.00-0.50) Test 02/04/20 17:57 02/04/20 23:57 02/05/20 06:00 02/05/20 06:21 Glucose (Fingerstick) 179 mg/dL (70-99) 176 mg/dL (70-99) 164 mg/dL (70-99) Sodium Level 144 mmol/L (136-145) Potassium Level 3.3 mmol/L (3.5-5.1) Chloride Level 109 mmol/L (98-107) Carbon Dioxide Level 28 mmol/L (21-32) Anion Gap 7 (6-14) Blood Urea Nitrogen 17 mg/dL (8-26) Creatinine 1.0 mg/dL (0.7-1.3) Estimated GFR (Cockcroft-Gault) 96.9 BUN/Creatinine Ratio 17 (6-20) Glucose Level 195 mg/dL (70-99) Calcium Level 7.5 mg/dL (8.5-10.1) Total Bilirubin 0.4 mg/dL (0.2-1.0) Aspartate Amino Transf (AST/SGOT) 33 U/L (15-37) Alanine Aminotransferase (ALT/SGPT) 13 U/L (16-63) Alkaline Phosphatase 108 U/L (46-116) Total Protein 5.7 g/dL (6.4-8.2) Albumin 1.6 g/dL (3.4-5.0) Albumin/Globulin Ratio 0.4 (1.0-1.7) Test 02/05/20 08:09 O2 Saturation 85 % (92-99) Arterial Blood pH 7.31 (7.35-7.45) Arterial Blood pCO2 at Patient Temp 50 mmHg (35-46) Arterial Blood pO2 at Patient Temp 53 mmHg (75-108) Arterial Blood HCO3 24 mmol/L (21-28) Arterial Blood Base Excess -2 mmol/L (-3-3) FiO2 100 Laboratory Tests Test 02/04/20 12:02 02/04/20 12:21 02/04/20 17:57 02/04/20 23:57 Glucose (Fingerstick) 211 mg/dL (70-99) 179 mg/dL (70-99) 176 mg/dL (70-99) D-Dimer (Kassy) 4.86 ug/mlFEU (0.00-0.50) Test 02/05/20 06:00 02/05/20 06:21 02/05/20 08:09 Sodium Level 144 mmol/L (136-145) Potassium Level 3.3 mmol/L (3.5-5.1) Chloride Level 109 mmol/L (98-107) Carbon Dioxide Level 28 mmol/L (21-32) Anion Gap 7 (6-14) Blood Urea Nitrogen 17 mg/dL (8-26) Creatinine 1.0 mg/dL (0.7-1.3) Estimated GFR (Cockcroft-Gault) 96.9 BUN/Creatinine Ratio 17 (6-20) Glucose Level 195 mg/dL (70-99) Calcium Level 7.5 mg/dL (8.5-10.1) Total Bilirubin 0.4 mg/dL (0.2-1.0) Aspartate Amino Transf (AST/SGOT) 33 U/L (15-37) Alanine Aminotransferase (ALT/SGPT) 13 U/L (16-63) Alkaline Phosphatase 108 U/L (46-116) Total Protein 5.7 g/dL (6.4-8.2) Albumin 1.6 g/dL (3.4-5.0) Albumin/Globulin Ratio 0.4 (1.0-1.7) Glucose (Fingerstick) 164 mg/dL (70-99) O2 Saturation 85 % (92-99) Arterial Blood pH 7.31 (7.35-7.45) Arterial Blood pCO2 at Patient Temp 50 mmHg (35-46) Arterial Blood pO2 at Patient Temp 53 mmHg (75-108) Arterial Blood HCO3 24 mmol/L (21-28) Arterial Blood Base Excess -2 mmol/L (-3-3) FiO2 100 Medications Active Scripts Medications Dose Route/Sig Max Daily Dose Days Date Category Aspirin 325 Mg Tablet 325 Mg PO DAILY 03/20/19 Rx Venlafaxine Hcl Er (Venlafaxine Hcl) 150 Mg Tab.er.24 1 Tab PO BID 03/18/19 Reported Novolog (Insulin Aspart) 100 Unit/1 Ml Cartridge 25 Unit SQ TIDWMEALS 03/18/19 Reported Metformin Hcl 1,000 Mg Tablet 1,000 Mg PO BIDWMEALS 03/18/19 Reported Zofran (Ondansetron Hcl) 4 Mg Tablet 1 Tab PO Q6HRS 03/18/19 Reported Terazosin Hcl 2 Mg Capsule 2 Cap PO QHS 03/18/19 Reported Lantus Solostar (Insulin Glargine,Hum.rec.anlog) 100 Unit/1 Ml Insuln.pen 80 Unit SQ QHS 03/18/19 Reported Metoprolol Tartrate 50 Mg Tablet 1 Tab PO BID 03/18/19 Reported Omeprazole 20 Mg Capsule.dr 20 Mg PO BID 03/18/19 Reported Lisinopril 40 Mg Tablet 1 Tab PO DAILY 03/18/19 Reported Mokyqk-Vvvkeufv-Zviw 50-325-40 (Butalb/Acetaminophen/Caffeine) 1 Each Tablet 1-2 Tab PO PRN Q4HRS PRN MDD 6 tablets 2 07/30/18 Rx Imitrex (Sumatriptan Succinate) 50 Mg Tablet 50 Mg PO PRN BID PRN 01/15/15 Reported Hydrochlorothiazide Tablet (Hydrochlorothiazide) 12.5 Mg Tablet 25 Mg PO DAILY 01/15/15 Reported Meclizine Hcl 25 Mg Tablet 25 Mg PO PRN TID PRN 90 01/15/15 Reported Patanol (Olopatadine Hcl) 5 Ml Drops 1 Drop EACHEYE BID 01/11/15 Reported Atorvastatin Calcium 20 Mg Tablet 1 Tab PO DAILY 01/11/15 Reported Isosorbide Mononitrate 20 Mg Tablet 20 Mg PO BID 08/22/13 Reported Amlodipine Besylate 10 Mg Tablet 10 Mg PO HS 08/22/13 Reported Isosorbide Dinitrate 30 Mg Tablet 20 Mg PO DAILY 07/15/19 Reported Hydrochlorothiazide Tablet (Hydrochlorothiazide) 25 Mg Tablet 25 Mg PO DAILY 07/15/19 Reported Ondansetron Odt (Ondansetron) 4 Mg Tab.rapdis 1 Tab PO PRN Q6-8HRS PRN 01/31/19 Rx Edajwu-Wlfcjgge-Cgmv 50-325-40 (Butalb/Acetaminophen/Caffeine) 1 Each Tablet 1 Each PO Q6HRS PRN 01/31/19 Rx Impression . 1. Acute hypoxic respiratory failure secondary to COVID-19 pneumonia and ARDS 2. COVID-19 pneumonia with sepsis. 3. Abnormal chest x-ray with diffuse alveolar infiltrates and somewhat peripheral location. We will monitor closely. Cannot exclude any aspiration pneumonia. mild improvement 02/03 4. 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 5. Diabetic ketoacidosis, now anion gap closed and being monitored by PCP.BS better 6. Hypernatremia, s/p IV fluids.improved Plan . 1. Continue with present assist control mode and follow ABGs and make necessary adjustments. 100%FIO2/ PEEP of 10 2. Broad-spectrum antibiotics. 3. Monitor clinical course. 4. Follow renal function.improved. 5. s/p convalescent plasma. s/p Tocilizumab 02/03 6. DKA is resolved. , I will add low dose steroids 8. DVT and stress ulcer prophylaxis. 9. Discussed with RN and RT. / 10. Critical care time 35 minutes. IGNACIO PUTNAM MD Feb 05, 2020 11:31
[2020-02-05] MEDS: methylPREDNISolone SOD SUCC PF 40 MG/ML VIAL. IV SCH ×2 (14:04→22:13)
[2020-02-05] MEDS: hydrALAZINE 20 MG/ML VIAL. IVP PRN (18:44)
[2020-02-05] MEDS: amLODIPine BESYLATE 10 MG TABLET PO SCH (21:05)
[2020-02-05] MEDS: ATORVASTATIN CALCIUM 20 MG TABLET PO SCH (21:05)
[2020-02-06] VITALS (24 sets, daily range): BP systolic 117–168; BP diastolic 59–80
[2020-02-06] MEDS: MIDAZOLAM HCL 100 MG in IV NORMAL SALINE 100ML 100 ML IV PRN ×2 (00:16→21:08)
[2020-02-06] MEDS: PIPERACILLIN/TAZOBACTAM 3.375 GM in IV NORMAL SALINE 50ML 50 ML IV SCH ×5 (00:16→23:55)
[2020-02-06] MEDS: IV 1/2 NORMAL SALINE 1,000 ML IV SCH ×4 (00:17→23:55)
--- NOTE | 2020-02-06 04:21 | NUR ---
When suctioning patient and doing mouth care, Pt O2 sat 81%. Sat did not increase to normal for 10 minutes. O2 sat similarly decreases with minimal movement of body by staff.
[2020-02-06] MEDS: methylPREDNISolone SOD SUCC PF 40 MG/ML VIAL. IV SCH ×3 (05:48→21:09)
[2020-02-06] MEDS: INSULIN LISPRO 300 UNITS/3 ML VIAL. SQ SCH ×4 (06:00→18:00)
[2020-02-06 06:29] LABS: ALBUMIN 1.4 g/dL (3.4-5.0); ALBUMIN/GLOBULIN RATIO 0.4 (1.0-1.7); CALCIUM 7.2 mg/dL (8.5-10.1); CREATININE 0.9 mg/dL (0.7-1.3); GFR 109.4; POTASSIUM 3.6 mmol/L (3.5-5.1); TOTAL BILIRUBIN 0.4 mg/dL (0.2-1.0); TOTAL PROTEIN 5.3 g/dL (6.4-8.2)
[2020-02-06] MEDS: PROPOFOL 100 ML IV PRN ×4 (06:44→19:48)
[2020-02-06] MEDS: metFORMIN 500 MG TABLET PO SCH ×2 (08:00→15:59)
[2020-02-06] MEDS: CHLORHEXIDINE 0.12% 15 ML MOUTHWASH. MM SCH ×2 (08:14→21:02)
[2020-02-06] MEDS: LISINOPRIL 20 MG TABLET PO SCH (08:14)
[2020-02-06] MEDS: ENOXAPARIN 40 MG/0.4 ML SYRINGE. SQ SCH ×2 (08:14→21:04)
[2020-02-06] MEDS: PANTOPRAZOLE IV PUSH 40 MG VIAL. IVP SCH (08:14)
[2020-02-06] MEDS: ELECTROLYTE (ICU) PROTOCOL. MC SCH (08:15)
[2020-02-06] MEDS: ISOSORBIDE DINITRATE 10 MG TABLET. PO SCH ×3 (08:15→21:03)
[2020-02-06] MEDS: SENNOSIDES/DOCUSATE 8.6/50MG TABLET. PO SCH ×2 (08:15→21:02)
[2020-02-06] MEDS: hydroCHLOROthiazide 25 MG TABLET PO SCH (08:15)
[2020-02-06] MEDS: ASPIRIN 325 MG TABLET PO SCH (08:15)
[2020-02-06] MEDS: VENLAFAXINE 75 MG TABLET. PO SCH ×2 (08:16→21:03)
[2020-02-06] MEDS: KETOTIFEN FUMARATE 0.025% OPHTH SOLUTION BOTTLE. OU SCH ×2 (08:16→21:08)
[2020-02-06] MEDS: METOPROLOL TART IMMED RELEASE 50 MG TABLET. PO SCH ×2 (08:16→21:00)
[2020-02-06] MEDS: DOCUSATE 100 MG/10 ML SOLUTION. PO SCH (08:16)
[2020-02-06] MEDS: INSULIN GLARGINE SYRINGE. SQ SCH ×2 (08:18→21:05)
[2020-02-06 08:39] LABS: BASE EXCESS ABG -5 mmol/L (-3-3); HCO3 ABG 20 mmol/L (21-28); PCO2 ABG 34 mmHg (35-46); PO2 ABG 70 mmHg (75-108); SAT O2 ABG 93 % (92-99)
--- NOTE | 2020-02-06 08:49 | PDOC ---
PULMONARY PROGRESS NOTES Subjective on vent sedated, propofol, precedex, mod ett secretion AC mode 100%FIO2/ 10 PEEP Vitals Vital Signs Date Time Temp Pulse Resp B/P (MAP) Pulse Ox O2 Delivery O2 Flow Rate FiO2 02/06/20 08:16 56 168/85 02/06/20 06:18 24 Ventilator 02/06/20 06:00 98 02/06/20 04:00 97.8 97.8 Comments ros unable to obtain sedated on vent visual exam done due to COVID pandemia nc at appears comfortable no paradoxical abd motion no rash AC mode, no soa sedated/no edema Labs Laboratory Tests Test 02/04/20 12:02 02/04/20 12:21 02/04/20 17:57 02/04/20 23:57 Glucose (Fingerstick) 211 mg/dL (70-99) 179 mg/dL (70-99) 176 mg/dL (70-99) D-Dimer (Kassy) 4.86 ug/mlFEU (0.00-0.50) Test 02/05/20 06:00 02/05/20 06:21 02/05/20 08:09 02/05/20 13:19 Sodium Level 144 mmol/L (136-145) Potassium Level 3.3 mmol/L (3.5-5.1) Chloride Level 109 mmol/L (98-107) Carbon Dioxide Level 28 mmol/L (21-32) Anion Gap 7 (6-14) Blood Urea Nitrogen 17 mg/dL (8-26) Creatinine 1.0 mg/dL (0.7-1.3) Estimated GFR (Cockcroft-Gault) 96.9 BUN/Creatinine Ratio 17 (6-20) Glucose Level 195 mg/dL (70-99) Calcium Level 7.5 mg/dL (8.5-10.1) Total Bilirubin 0.4 mg/dL (0.2-1.0) Aspartate Amino Transf (AST/SGOT) 33 U/L (15-37) Alanine Aminotransferase (ALT/SGPT) 13 U/L (16-63) Alkaline Phosphatase 108 U/L (46-116) Total Protein 5.7 g/dL (6.4-8.2) Albumin 1.6 g/dL (3.4-5.0) Albumin/Globulin Ratio 0.4 (1.0-1.7) Glucose (Fingerstick) 164 mg/dL (70-99) 143 mg/dL (70-99) O2 Saturation 85 % (92-99) Arterial Blood pH 7.31 (7.35-7.45) Arterial Blood pCO2 at Patient Temp 50 mmHg (35-46) Arterial Blood pO2 at Patient Temp 53 mmHg (75-108) Arterial Blood HCO3 24 mmol/L (21-28) Arterial Blood Base Excess -2 mmol/L (-3-3) FiO2 100 Test 02/05/20 13:45 02/05/20 17:49 02/06/20 00:13 02/06/20 05:58 Troponin I Quantitative < 0.017 ng/mL (0.000-0.055) Glucose (Fingerstick) 161 mg/dL (70-99) 198 mg/dL (70-99) 187 mg/dL (70-99) Test 02/06/20 06:00 Sodium Level 140 mmol/L (136-145) Potassium Level 3.6 mmol/L (3.5-5.1) Chloride Level 106 mmol/L (98-107) Carbon Dioxide Level 21 mmol/L (21-32) Anion Gap 13 (6-14) Blood Urea Nitrogen 20 mg/dL (8-26) Creatinine 0.9 mg/dL (0.7-1.3) Estimated GFR (Cockcroft-Gault) 109.4 BUN/Creatinine Ratio 22 (6-20) Glucose Level 215 mg/dL (70-99) Calcium Level 7.2 mg/dL (8.5-10.1) Total Bilirubin 0.4 mg/dL (0.2-1.0) Aspartate Amino Transf (AST/SGOT) 29 U/L (15-37) Alanine Aminotransferase (ALT/SGPT) 18 U/L (16-63) Alkaline Phosphatase 201 U/L (46-116) Total Protein 5.3 g/dL (6.4-8.2) Albumin 1.4 g/dL (3.4-5.0) Albumin/Globulin Ratio 0.4 (1.0-1.7) Laboratory Tests Test 02/05/20 13:19 02/05/20 13:45 02/05/20 17:49 02/06/20 00:13 Glucose (Fingerstick) 143 mg/dL (70-99) 161 mg/dL (70-99) 198 mg/dL (70-99) Troponin I Quantitative < 0.017 ng/mL (0.000-0.055) Test 02/06/20 05:58 02/06/20 06:00 Glucose (Fingerstick) 187 mg/dL (70-99) Sodium Level 140 mmol/L (136-145) Potassium Level 3.6 mmol/L (3.5-5.1) Chloride Level 106 mmol/L (98-107) Carbon Dioxide Level 21 mmol/L (21-32) Anion Gap 13 (6-14) Blood Urea Nitrogen 20 mg/dL (8-26) Creatinine 0.9 mg/dL (0.7-1.3) Estimated GFR (Cockcroft-Gault) 109.4 BUN/Creatinine Ratio 22 (-20) Glucose Level 215 mg/dL (70-99) Calcium Level 7.2 mg/dL (8.5-10.1) Total Bilirubin 0.4 mg/dL (0.2-1.0) Aspartate Amino Transf (AST/SGOT) 29 U/L (15-37) Alanine Aminotransferase (ALT/SGPT) 18 U/L (16-63) Alkaline Phosphatase 201 U/L (46-116) Total Protein 5.3 g/dL (6.4-8.2) Albumin 1.4 g/dL (3.4-5.0) Albumin/Globulin Ratio 0.4 (1.0-1.7) Medications Active Scripts Medications Dose Route/Sig Max Daily Dose Days Date Category Aspirin 325 Mg Tablet 325 Mg PO DAILY 03/20/19 Rx Venlafaxine Hcl Er (Venlafaxine Hcl) 150 Mg Tab.er.24 1 Tab PO BID 03/18/19 Reported Novolog (Insulin Aspart) 100 Unit/1 Ml Cartridge 25 Unit SQ TIDWMEALS 03/18/19 Reported Metformin Hcl 1,000 Mg Tablet 1,000 Mg PO BIDWMEALS 03/18/19 Reported Zofran (Ondansetron Hcl) 4 Mg Tablet 1 Tab PO Q6HRS 03/18/19 Reported Terazosin Hcl 2 Mg Capsule 2 Cap PO QHS 03/18/19 Reported Lantus Solostar (Insulin Glargine,Hum.rec.anlog) 100 Unit/1 Ml Insuln.pen 80 Unit SQ QHS 03/18/19 Reported Metoprolol Tartrate 50 Mg Tablet 1 Tab PO BID 03/18/19 Reported Omeprazole 20 Mg Capsule.dr 20 Mg PO BID 03/18/19 Reported Lisinopril 40 Mg Tablet 1 Tab PO DAILY 03/18/19 Reported Alfxlk-Aonwtnvz-Mhda 50-325-40 (Butalb/Acetaminophen/Caffeine) 1 Each Tablet 1-2 Tab PO PRN Q4HRS PRN MDD 6 tablets 2 07/30/18 Rx Imitrex (Sumatriptan Succinate) 50 Mg Tablet 50 Mg PO PRN BID PRN 01/15/15 Reported Hydrochlorothiazide Tablet (Hydrochlorothiazide) 12.5 Mg Tablet 25 Mg PO DAILY 01/15/15 Reported Meclizine Hcl 25 Mg Tablet 25 Mg PO PRN TID PRN 90 01/15/15 Reported Patanol (Olopatadine Hcl) 5 Ml Drops 1 Drop EACHEYE BID 01/11/15 Reported Atorvastatin Calcium 20 Mg Tablet 1 Tab PO DAILY 01/11/15 Reported Isosorbide Mononitrate 20 Mg Tablet 20 Mg PO BID 08/22/13 Reported Amlodipine Besylate 10 Mg Tablet 10 Mg PO HS 08/22/13 Reported Isosorbide Dinitrate 30 Mg Tablet 20 Mg PO DAILY 07/15/19 Reported Hydrochlorothiazide Tablet (Hydrochlorothiazide) 25 Mg Tablet 25 Mg PO DAILY 07/15/19 Reported Ondansetron Odt (Ondansetron) 4 Mg Tab.rapdis 1 Tab PO PRN Q6-8HRS PRN 01/31/19 Rx Ujvmws-Phycqqwi-Gozl 50-325-40 (Butalb/Acetaminophen/Caffeine) 1 Each Tablet 1 Each PO Q6HRS PRN 01/31/19 Rx Comments cxr reviewed ett okteresa lat infilt Impression . 1. Acute hypoxic respiratory failure secondary to COVID-19 pneumonia and ARDS 2. COVID-19 pneumonia with sepsis. 3. Abnormal chest x-ray with diffuse alveolar infiltrates and somewhat peripheral location. We will monitor closely. Cannot exclude any aspiration pneumonia. mild improvement 02/03 4. 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 5. Diabetic ketoacidosis, now anion gap closed and being monitored by PCP.BS better 6. Hypernatremia, s/p IV fluids.improved Plan . 1. Continue with present assist control mode and follow ABGs and make necessary adjustments. 100%FIO2/ PEEP of 10, abg reviewed 2. Broad-spectrum antibiotics. 3. Monitor clinical course. 4. Follow renal function.improved. 5. s/p convalescent plasma. s/p Tocilizumab 02/03 6. DKA is resolved, steroids started 02/04, 8. DVT and stress ulcer prophylaxis. 9. Discussed with RN and RT. / 10. critically ill, Critical care time 30 minutes no overlap. NENITA JUÁREZ MD Feb 06, 2020 08:49
--- NOTE | 2020-02-06 09:19 | PDOC ---
PROGRESS NOTES History of Present Illness History of Present Illness VTE Prophylaxis Ordered VTE Prophylaxis Devices: No VTE Pharmacological Prophylaxi: Yes IMPRESSION Assessment/Plan Toxic and metabolic encephalopathy Sepsis with pulmonary focus most likely Suspect gram negative organism pneumonia POS COVID 19 infection DKA lactic acidosis secondary to a combination of metabolic and infectious process ongoing Acute renal failure, vasomotor etiology most likely Hypernatremia Severe dehydration History of essential hypertension History of CVA Diabetes mellitus type 2 insulin requiring Severe anion gap metabolic acidosis Plan: isolation admit to ICU VENT SUPPORT AC mode 100%FIO2/ 10 PEEP fluid resuscitation DKA protocol Broad spectrum antibiotics for pneumonic process POS COVID 19 infection follow BMP every 4 hours. supportive measures vent management, will consult pulmonology for assistance. further recommendations based on clinical course DVT prophylaxis: heparin 02/05 Suspect gram negative organism pneumonia worsening hypoxia AC mode 100%FIO2/ 9 PEEP Justicifation of Admission Dx: Justicifation of Admission Dx: Justifications for Admission: Justification of Admission Dx: Yes Sepsis: Altered Mental Status 39 MIN CC TIME Vitals Vitals Vital Signs Date Time Temp Pulse Resp B/P (MAP) Pulse Ox O2 Delivery O2 Flow Rate FiO2 02/06/20 08:16 56 168/85 02/06/20 08:00 Mechanical Ventilator 02/06/20 06:18 24 02/06/20 06:00 98 02/06/20 04:00 97.8 97.8 Physical Exam Physical Exam SEDATED ON VENT LUNGS: Coarse breath sounds HEART: RRR, S1, S2 present. Peripheral pulses intact ABDOMEN: Soft, non distended. Positive bowel sounds. EXTREMITIES: Without any cyanosis. NEUROLOGIC: Sedated PSYCHIATRIC: uanble to obtain due to acute process . SKIN: No ulcerations General: Cooperative Extremities: No cyanosis Labs LABS Laboratory Tests Test 02/05/20 13:19 02/05/20 13:45 02/05/20 17:49 02/06/20 00:13 Glucose (Fingerstick) 143 mg/dL (70-99) 161 mg/dL (70-99) 198 mg/dL (70-99) Troponin I Quantitative < 0.017 ng/mL (0.000-0.055) Test 02/06/20 05:58 02/06/20 06:00 Glucose (Fingerstick) 187 mg/dL (70-99) Sodium Level 140 mmol/L (136-145) Potassium Level 3.6 mmol/L (3.5-5.1) Chloride Level 106 mmol/L (98-107) Carbon Dioxide Level 21 mmol/L (21-32) Anion Gap 13 (6-14) Blood Urea Nitrogen 20 mg/dL (8-26) Creatinine 0.9 mg/dL (0.7-1.3) Estimated GFR (Cockcroft-Gault) 109.4 BUN/Creatinine Ratio 22 (6-20) Glucose Level 215 mg/dL (70-99) Calcium Level 7.2 mg/dL (8.5-10.1) Total Bilirubin 0.4 mg/dL (0.2-1.0) Aspartate Amino Transf (AST/SGOT) 29 U/L (15-37) Alanine Aminotransferase (ALT/SGPT) 18 U/L (16-63) Alkaline Phosphatase 201 U/L (46-116) Total Protein 5.3 g/dL (6.4-8.2) Albumin 1.4 g/dL (3.4-5.0) Albumin/Globulin Ratio 0.4 (1.0-1.7) Assessment and Plan Assessmemt and Plan Problems Medical Problems: (1) Acute metabolic encephalopathy Status: Acute (2) Acute renal insufficiency Status: Acute (3) DKA (diabetic ketoacidoses) Status: Acute (4) Pneumonia Status: Acute (5) Respiratory failure with hypoxia Status: Acute (6) Suspected 2019 novel coronavirus infection Status: Acute Comment Review of Relevant I have reviewed the following items myra (where applicable) has been applied. Labs Laboratory Tests Test 02/04/20 12:02 02/04/20 12:21 02/04/20 17:57 02/04/20 23:57 Glucose (Fingerstick) 211 mg/dL (70-99) 179 mg/dL (70-99) 176 mg/dL (70-99) D-Dimer (Kassy) 4.86 ug/mlFEU (0.00-0.50) Test 02/05/20 06:00 02/05/20 06:21 02/05/20 08:09 02/05/20 13:19 Sodium Level 144 mmol/L (136-145) Potassium Level 3.3 mmol/L (3.5-5.1) Chloride Level 109 mmol/L (98-107) Carbon Dioxide Level 28 mmol/L (21-32) Anion Gap 7 (6-14) Blood Urea Nitrogen 17 mg/dL (8-26) Creatinine 1.0 mg/dL (0.7-1.3) Estimated GFR (Cockcroft-Gault) 96.9 BUN/Creatinine Ratio 17 (6-20) Glucose Level 195 mg/dL (70-99) Calcium Level 7.5 mg/dL (8.5-10.1) Total Bilirubin 0.4 mg/dL (0.2-1.0) Aspartate Amino Transf (AST/SGOT) 33 U/L (15-37) Alanine Aminotransferase (ALT/SGPT) 13 U/L (16-63) Alkaline Phosphatase 108 U/L (46-116) Total Protein 5.7 g/dL (6.4-8.2) Albumin 1.6 g/dL (3.4-5.0) Albumin/Globulin Ratio 0.4 (1.0-1.7) Glucose (Fingerstick) 164 mg/dL (70-99) 143 mg/dL (70-99) O2 Saturation 85 % (92-99) Arterial Blood pH 7.31 (7.35-7.45) Arterial Blood pCO2 at Patient Temp 50 mmHg (35-46) Arterial Blood pO2 at Patient Temp 53 mmHg (75-108) Arterial Blood HCO3 24 mmol/L (21-28) Arterial Blood Base Excess -2 mmol/L (-3-3) FiO2 100 Test 02/05/20 13:45 02/05/20 17:49 02/06/20 00:13 02/06/20 05:58 Troponin I Quantitative < 0.017 ng/mL (0.000-0.055) Glucose (Fingerstick) 161 mg/dL (70-99) 198 mg/dL (70-99) 187 mg/dL (70-99) Test 02/06/20 06:00 Sodium Level 140 mmol/L (136-145) Potassium Level 3.6 mmol/L (3.5-5.1) Chloride Level 106 mmol/L (98-107) Carbon Dioxide Level 21 mmol/L (21-32) Anion Gap 13 (6-14) Blood Urea Nitrogen 20 mg/dL (8-26) Creatinine 0.9 mg/dL (0.7-1.3) Estimated GFR (Cockcroft-Gault) 109.4 BUN/Creatinine Ratio 22 (6-20) Glucose Level 215 mg/dL (70-99) Calcium Level 7.2 mg/dL (8.5-10.1) Total Bilirubin 0.4 mg/dL (0.2-1.0) Aspartate Amino Transf (AST/SGOT) 29 U/L (15-37) Alanine Aminotransferase (ALT/SGPT) 18 U/L (16-63) Alkaline Phosphatase 201 U/L (46-116) Total Protein 5.3 g/dL (6.4-8.2) Albumin 1.4 g/dL (3.4-5.0) Albumin/Globulin Ratio 0.4 (1.0-1.7) Laboratory Tests Test 02/05/20 13:19 02/05/20 13:45 02/05/20 17:49 02/06/20 00:13 Glucose (Fingerstick) 143 mg/dL (70-99) 161 mg/dL (70-99) 198 mg/dL (70-99) Troponin I Quantitative < 0.017 ng/mL (0.000-0.055) Test 02/06/20 05:58 02/06/20 06:00 Glucose (Fingerstick) 187 mg/dL (70-99) Sodium Level 140 mmol/L (136-145) Potassium Level 3.6 mmol/L (3.5-5.1) Chloride Level 106 mmol/L (98-107) Carbon Dioxide Level 21 mmol/L (21-32) Anion Gap 13 (6-14) Blood Urea Nitrogen 20 mg/dL (8-26) Creatinine 0.9 mg/dL (0.7-1.3) Estimated GFR (Cockcroft-Gault) 109.4 BUN/Creatinine Ratio 22 (6-20) Glucose Level 215 mg/dL (70-99) Calcium Level 7.2 mg/dL (8.5-10.1) Total Bilirubin 0.4 mg/dL (0.2-1.0) Aspartate Amino Transf (AST/SGOT) 29 U/L (15-37) Alanine Aminotransferase (ALT/SGPT) 18 U/L (16-63) Alkaline Phosphatase 201 U/L (46-116) Total Protein 5.3 g/dL (6.4-8.2) Albumin 1.4 g/dL (3.4-5.0) Albumin/Globulin Ratio 0.4 (1.0-1.7) Microbiology 02/02/20 Blood Culture - Preliminary, Resulted NO GROWTH AFTER 3 DAYS Medications Current Medications Sodium Chloride 1,000 ml @ 1,000 mls/hr 1X ONCE IV Last administered on 02/02/20at 16:48; Start 02/02/20 at 15:45; Stop 02/02/20 at 16:44; Status DC Etomidate (Amidate) 20 mg 1X ONCE IV Last administered on 02/02/20at 15:54; Start 02/02/20 at 15:45; Stop 02/02/20 at 15:52; Status DC Rocuronium Carlyle (Zemuron) 50 mg 1X ONCE IV Last administered on 02/02/20at 15:55; Start 02/02/20 at 15:45; Stop 02/02/20 at 15:52; Status DC Propofol 100 ml @ 0 mls/hr CONT PRN IV SEE PROTOCOL Last administered on 02/02/20at 16:33; Start 02/02/20 at 15:45; Stop 02/02/20 at 17:44; Status DC Chlorhexidine Gluconate (Peridex) 15 ml BID MM ; Start 02/02/20 at 21:00; Stop 02/02/20 at 17:39; Status DC Fentanyl Citrate (Fentanyl 2ml Vial) 100 mcg 1X ONCE IV Last administered on 02/02/20at 16:34; Start 02/02/20 at 16:15; Stop 02/02/20 at 16:16; Status DC Sodium Chloride 1,000 ml @ 1,000 mls/hr 1X ONCE IV Last administered on 02/02/20at 16:15; Start 02/02/20 at 16:15; Stop 02/02/20 at 17:20; Status DC Aspirin (Aspirin Rectal Supp) 300 mg 1X ONCE NC Last administered on 02/02/20at 16:35; Start 02/02/20 at 16:15; Stop 02/02/20 at 16:17; Status DC Acetaminophen (Tylenol) 650 mg PRN Q6HRS PRN PO Headaches, Temp > 101.5'; Start 02/02/20 at 16:15 Prochlorperazine Edisylate (Compazine) 5 mg PRN Q6HRS PRN IVP NAUSEA/VOMITING; Start 02/02/20 at 16:15 Prochlorperazine (Compazine) 25 mg PRN Q12HR PRN NC NAUSEA/VOMITING; Start 02/02/20 at 16:15 Info (Icu Electrolyte Protocol) 1 ea DAILY MC ; Start 02/03/20 at 09:00 Heparin Sodium (Porcine) (Heparin Sodium) 5,000 unit Q8HRS SQ Last administered on 02/04/20at 05:32; Start 02/02/20 at 22:00; Stop 02/04/20 at 14:45; Status DC Sodium Chloride (Normal Saline Flush) 3 ml QSHIFT PRN IV AFTER MEDS AND BLOOD DRAWS; Start 02/02/20 at 16:15 Oxycodone/ Acetaminophen (Percocet 5/325) 1 tab PRN Q4HRS PRN PO MILD PAIN, 1ST CHOICE; Start 02/02/20 at 16:15 Morphine Sulfate (Morphine Sulfate) 2 mg PRN Q1HR PRN IV PAIN; Start 02/02/20 at 16:15 Senna/Docusate Sodium (Senna Plus) 1 tab BID PO Last administered on 02/06/20at 08:15; Start 02/02/20 at 21:00 Docusate Sodium (Colace) 100 mg BID PO ; Start 02/02/20 at 21:00; Stop 02/04/20 at 19:30; Status DC Lactulose (Lactulose) 20 gm PRN Q12HR PRN PO CONSTIPATION; Start 02/02/20 at 16:15 Amlodipine Besylate (Norvasc) 10 mg HS PO Last administered on 02/05/20at 21:05; Start 02/02/20 at 21:00 Aspirin (Grover Aspirin) 325 mg DAILY PO Last administered on 02/06/20at 08:15; Start 02/03/20 at 09:00 Atorvastatin Calcium (Lipitor) 20 mg QHS PO Last administered on 02/05/20at 21:05; Start 02/02/20 at 21:00 Acetaminophen/ Butalbital/ Caffeine (Fioricet) 1 tab PRN Q6HRS PRN PO MIGRAINE HEADACHE- 1ST CHOICE; Start 02/02/20 at 16:15 Hydrochlorothiazide (Hydrodiuril) 25 mg DAILY PO Last administered on 02/06/20at 08:15; Start 02/03/20 at 09:00 Isosorbide Dinitrate (Isordil) 10 mg TID PO Last administered on 02/06/20at 08:15; Start 02/02/20 at 21:00 Lisinopril (Prinivil) 40 mg DAILY PO Last administered on 02/06/20at 08:14; Start 02/03/20 at 09:00 Metoprolol Tartrate (Lopressor) 50 mg BID PO Last administered on 02/05/20at 21:06; Start 02/02/20 at 21:00 Non-Formulary Medication (Hydrochlorothiazide (Hydrochlorothiazide Tablet)) 25 mg DAILY PO ; Start 02/03/20 at 09:00; Status UNV Non-Formulary Medication (Insulin Aspart (Novolog)) 25 unit TIDWMEALS SQ ; Start 02/02/20 at 17:00; Status UNV Non-Formulary Medication (Insulin Glargine,Hum.rec.anlog (Lantus Solostar)) 80 unit QHS SQ ; Start 02/02/20 at 21:00; Status UNV Non-Formulary Medication (Isosorbide Dinitrate ) 20 mg DAILY PO ; Start 02/03/20 at 09:00; Status UNV Meclizine HCl (Antivert) 25 mg PRN Q6HRS PRN PO NAUSEA- 2ND CHOICE; Start 02/02/20 at 17:45 Metformin HCl (Glucophage) 1,000 mg BIDWMEALS PO ; Start 02/02/20 at 17:00 Ketotifen Fumarate (Zaditor) 1 drop BID OU Last administered on 02/06/20at 08:16; Start 02/02/20 at 21:00 Pantoprazole Sodium (PROTONIX VIAL for IV PUSH) 40 mg DAILYAC IVP Last administered on 02/06/20at 08:14; Start 02/03/20 at 07:30 Ondansetron HCl (Zofran Odt) 4 mg PRN Q8HRS PRN PO NAUSEA/VOMITING, 1ST CHOICE PO; Start 02/02/20 at 17:45 Sumatriptan Succinate (Imitrex) 50 mg PRN BID PRN PO MIGRAINE HEADACHE; Start 02/02/20 at 17:45 Non-Formulary Medication (Terazosin Hcl ) 2 cap QHS PO ; Start 02/02/20 at 21:00; Status UNV Venlafaxine HCl (Effexor) 150 mg BID PO Last administered on 02/05/20at 21:05; Start 02/02/20 at 21:00 Fentanyl Citrate 30 ml @ 0 mls/hr CONT PRN IV SEE PROTOCOL Last administered on 02/06/20at 05:48; Start 02/02/20 at 16:30; Stop 02/06/20 at 10:59 Propofol 100 ml @ 0 mls/hr CONT PRN IV SEE PROTOCOL Last administered on 02/06/20at 06:44; Start 02/02/20 at 16:30 Fentanyl Citrate (Fentanyl 2ml Vial) 25 mcg PRN Q1HR PRN IV SEE COMMENTS; Start 02/02/20 at 16:30 Fentanyl Citrate (Fentanyl 2ml Vial) 50 mcg PRN Q1HR PRN IV SEE COMMENTS; Start 02/02/20 at 16:30 Chlorhexidine Gluconate (Peridex) 15 ml BID MM Last administered on 02/06/20at 08:14; Start 02/02/20 at 21:00 Morphine Sulfate (Morphine Sulfate) 2 mg PRN Q1HR PRN IV SEE COMMENTS.; Start 02/02/20 at 16:30 Morphine Sulfate (Morphine Sulfate) 4 mg PRN Q1HR PRN IV SEE COMMENTS.; Start 02/02/20 at 16:30 Midazolam HCl (Versed) 1 mg PRN Q30MIN PRN IV SEE COMMENTS.; Start 02/02/20 at 16:30 Piperacillin Sod/ Tazobactam Sod 4.5 gm/Sodium Chloride 100 ml @ 200 mls/hr 1X ONCE IV Last administered on 02/02/20at 17:03; Start 02/02/20 at 16:30; Stop 02/02/20 at 16:59; Status DC Azithromycin 250 ml @ 250 mls/hr 1X ONCE IV Last administered on 02/02/20at 17:40; Start 02/02/20 at 16:30; Stop 02/02/20 at 17:34; Status DC Dexamethasone Sodium Phosphate (Decadron) 10 mg 1X ONCE IVP Last administered on 02/02/20at 16:54; Start 02/02/20 at 16:30; Stop 02/02/20 at 16:33; Status DC Midazolam HCl (Versed) 5 mg 1X ONCE IV Last administered on 02/02/20at 16:35; Start 02/02/20 at 16:45; Stop 02/02/20 at 16:46; Status DC Insulin Human Regular (HumuLIN R VIAL) 8 unit 1X ONCE SQ Last administered on 02/02/20at 16:51; Start 02/02/20 at 16:45; Stop 02/02/20 at 16:46; Status DC Sodium Chloride 1,000 ml @ 500 mls/hr Q2H IV Last administered on 02/02/20at 18:33; Start 02/02/20 at 16:36; Stop 02/02/20 at 18:35; Status DC Insulin Human Regular 100 unit/ Sodium Chloride 101 ml @ 0 mls/hr CONT PRN PRN IV PER PROTOCOL Last administered on 02/03/20at 02:08; Start 02/02/20 at 16:45; Stop 02/03/20 at 02:31; Status DC Insulin Human Regular 100 ml @ As Directed STK-MED ONCE IV ; Start 02/02/20 at 16:41; Stop 02/02/20 at 16:41; Status DC Etomidate (Amidate) 20 mg 1X ONCE IV ; Start 02/02/20 at 17:15; Stop 02/02/20 at 17:22; Status DC Rocuronium Carlyle (Zemuron) 50 mg 1X ONCE IV ; Start 02/02/20 at 17:15; Stop 02/02/20 at 17:34; Status DC Piperacillin Sod/ Tazobactam Sod 3.375 gm/Sodium Chloride 50 ml @ 100 mls/hr Q6HRS IV Last administered on 02/06/20at 05:47; Start 02/03/20 at 00:00 Sodium Chloride 1,000 ml @ 250 mls/hr Q4H IV Last administered on 02/02/20at 18:43; Start 02/02/20 at 18:45; Stop 02/02/20 at 22:40; Status DC Pantoprazole Sodium (PROTONIX VIAL for IV PUSH) 40 mg 1X ONCE IVP Last administered on 02/02/20at 22:47; Start 02/02/20 at 20:15; Stop 02/02/20 at 20:40; Status DC Labetalol HCl (Normodyne Iv Push) 10 mg PRN Q4HRS PRN IVP HYPERTENSION Last administered on 02/04/20at 05:20; Start 02/02/20 at 20:15 Dextrose/Sodium Chloride 1,000 ml @ 250 mls/hr Q4H IV Last administered on 02/03/20at 07:59; Start 02/02/20 at 22:45; Stop 02/03/20 at 11:23; Status DC Insulin Human Regular 100 unit/ Sodium Chloride 101 ml @ 0 mls/hr CONT PRN IV SEE I/O RECORD; Start 02/03/20 at 02:15 Potassium Chloride/Water 100 ml @ 100 mls/hr PRN Q1HR PRN IV SEE COMMENTS; Start 02/03/20 at 05:00 Potassium Chloride/Water 100 ml @ 100 mls/hr Q1H IV Last administered on 02/03/20at 07:58; Start 02/03/20 at 05:00; Stop 02/03/20 at 08:59; Status DC Insulin Glargine (Lantus Syringe) 18 unit BID SQ Last administered on 02/06/20at 08:18; Start 02/03/20 at 09:00 Insulin Human Lispro (HumaLOG) 0-9 UNITS Q6HRS SQ Last administered on 02/04/20at 12:12; Start 02/03/20 at 12:00 Dextrose (Dextrose 50%-Water Syringe) 12.5 gm PRN Q15MIN PRN IV SEE COMMENTS; Start 02/03/20 at 06:15 Sodium Chloride 1,000 ml @ 125 mls/hr 1X ONCE IV Last administered on 02/03/20at 12:01; Start 02/03/20 at 11:30; Stop 02/03/20 at 19:29; Status DC Vecuronium Carlyle (Norcuron Bolus) 10 mg PRN Q6HRS PRN IV SEDATION Last administered on 02/04/20at 12:09; Start 02/04/20 at 07:30; Stop 02/04/20 at 19:30; Status DC Potassium Chloride/Water 100 ml @ 100 mls/hr 1X ONCE IV Last administered on 02/04/20at 10:04; Start 02/04/20 at 10:00; Stop 02/04/20 at 10:59; Status DC Tocilizumab 400 mg/Sodium Chloride 100 ml @ 100 mls/hr 1X ONCE IV Last admin istered on 02/04/20at 14:53; Start 02/04/20 at 13:00; Stop 02/04/20 at 13:59; Status DC Enoxaparin Sodium (Lovenox 40mg Syringe) 40 mg BID SQ Last administered on 02/06/20at 08:14; Start 02/04/20 at 21:00 Sodium Chloride 1,000 ml @ 125 mls/hr Q8H IV Last administered on 02/06/20at 08:20; Start 02/04/20 at 16:00 Vecuronium Carlyle (Norcuron Bolus) 10 mg PRN Q1HR PRN IV SEDATION Last administered on 02/05/20at 14:04; Start 02/04/20 at 19:30 Docusate Sodium (Colace Solution) 100 mg DAILY PO Last administered on 02/06/20at 08:16; Start 02/05/20 at 09:00 Norepinephrine Bitartrate 8 mg/ Dextrose 258 ml @ 15.519 mls/ hr CONT PRN IV PER PROTOCOL Last administered on 02/04/20at 22:48; Start 02/04/20 at 22:30 Potassium Bicarbonate (Potassium Effervescent Tablet) 40 meq 1X ONCE PO Last administered on 02/05/20at 08:26; Start 02/05/20 at 07:45; Stop 02/05/20 at 07:46; Status DC Midazolam HCl 100 mg/Sodium Chloride 100 ml @ 1 mls/hr CONT PRN IV . Last administered on 02/06/20at 00:16; Start 02/05/20 at 10:00 Methylprednisolone Sodium Succinate (SOLU-Medrol 40MG VIAL) 40 mg Q8HRS IV Last administered on 02/06/20at 05:48; Start 02/05/20 at 14:00 Hydralazine HCl (Apresoline Inj) 10 mg PRN Q4HRS PRN IVP ELEVATED BP, SEE COMMENTS Last administered on 02/05/20at 18:44; Start 02/05/20 at 17:00 Fentanyl Citrate 55 ml @ 1.98 mls/hr CONT PRN IV SEE PROTOCOL; Start 02/06/20 at 11:00 Active Scripts Active Aspirin 325 Mg Tablet 325 Mg PO DAILY Rgdobe-Vdxshbzp-Wfuh 50-325-40 (Butalb/Acetaminophen/Caffeine) 1 Each Tablet 1-2 Tab PO PRN Q4HRS PRN MDD 6 tablets 2 Days Ondansetron Odt (Ondansetron) 4 Mg Tab.rapdis 1 Tab PO PRN Q6-8HRS PRN Xijdts-Krmpxlsz-Vaje 50-325-40 (Butalb/Acetaminophen/Caffeine) 1 Each Tablet 1 Each PO Q6HRS PRN Reported Venlafaxine Hcl Er (Venlafaxine Hcl) 150 Mg Tab.er.24 1 Tab PO BID Novolog (Insulin Aspart) 100 Unit/1 Ml Cartridge 25 Unit SQ TIDWMEALS Metformin Hcl 1,000 Mg Tablet 1,000 Mg PO BIDWMEALS Zofran (Ondansetron Hcl) 4 Mg Tablet 1 Tab PO Q6HRS Terazosin Hcl 2 Mg Capsule 2 Cap PO QHS Lantus Solostar (Insulin Glargine,Hum.rec.anlog) 100 Unit/1 Ml Insuln.pen 80 Unit SQ QHS Metoprolol Tartrate 50 Mg Tablet 1 Tab PO BID Omeprazole 20 Mg Capsule.dr 20 Mg PO BID Lisinopril 40 Mg Tablet 1 Tab PO DAILY Imitrex (Sumatriptan Succinate) 50 Mg Tablet 50 Mg PO PRN BID PRN Hydrochlorothiazide Tablet (Hydrochlorothiazide) 12.5 Mg Tablet 25 Mg PO DAILY Meclizine Hcl 25 Mg Tablet 25 Mg PO PRN TID PRN 90 Days Patanol (Olopatadine Hcl) 5 Ml Drops 1 Drop EACHEYE BID Atorvastatin Calcium 20 Mg Tablet 1 Tab PO DAILY Isosorbide Mononitrate 20 Mg Tablet 20 Mg PO BID Amlodipine Besylate 10 Mg Tablet 10 Mg PO HS Isosorbide Dinitrate 30 Mg Tablet 20 Mg PO DAILY Hydrochlorothiazide Tablet (Hydrochlorothiazide) 25 Mg Tablet 25 Mg PO DAILY Vitals/I & O Vital Sign - Last 24 Hours 02/05/20 02/05/20 02/05/20 02/05/20 10:00 11:00 11:24 12:00 Pulse 62 63 Resp 24 24 B/P (MAP) 139/62 (87) 116/79 (91) Pulse Ox 99 96 90 O2 Delivery Ventilator Ventilator Ventilator Mechanical Ventilator 02/05/20 02/05/20 02/05/20 02/05/20 12:00 12:34 13:00 14:00 Temp 98.8 98.8 Pulse 64 65 65 Resp 24 24 24 B/P (MAP) 94/68 (77) 161/79 (106) 146/86 (106) Pulse Ox 97 97 97 94 O2 Delivery Ventilator Ventilator Ventilator Ventilator 02/05/20 02/05/20 02/05/20 02/05/20 14:57 15:00 16:00 16:00 Temp 97.6 97.6 Pulse 65 62 Resp 24 24 B/P (MAP) 140/78 (98) 162/88 (112) Pulse Ox 96 95 95 O2 Delivery Ventilator Ventilator Ventilator Mechanical Ventilator 02/05/20 02/05/20 02/05/20 02/05/20 17:00 17:38 18:00 18:08 Pulse 65 64 Resp 24 24 B/P (MAP) 173/95 (121) 172/94 (120) Pulse Ox 98 98 98 98 O2 Delivery Ventilator Ventilator Ventilator Ventilator 02/05/20 02/05/20 02/05/20 02/05/20 18:44 19:00 19:56 20:00 Temp 98.1 98.1 Pulse 64 69 64 Resp 24 24 B/P (MAP) 172/94 143/77 (99) 141/68 (92) Pulse Ox 98 98 O2 Delivery Ventilator Mechanical Ventilator Ventilator 02/05/20 02/05/20 02/05/20 02/05/20 20:31 21:00 21:05 21:06 Pulse 71 64 64 Resp 24 B/P (MAP) 141/65 (90) Pulse Ox 97 93 O2 Delivery Ventilator Ventilator 02/05/20 02/05/20 02/05/20 02/05/20 21:06 22:00 23:00 23:43 Pulse 64 67 64 Resp 24 24 24 B/P (MAP) 136/61 (86) 135/56 (82) Pulse Ox 96 96 O2 Delivery Ventilator Ventilator Ventilator 02/06/20 02/06/20 02/06/20 02/06/20 00:00 00:00 00:17 00:20 Temp 98.1 98.1 Pulse 64 Resp 24 24 B/P (MAP) 136/68 (90) Pulse Ox 82 93 O2 Delivery Ventilator Mechanical Ventilator Ventilator Ventilator 02/06/20 02/06/20 02/06/20 02/06/20 01:00 02:00 03:00 04:00 Pulse 62 62 60 Resp 24 24 24 B/P (MAP) 160/78 (105) 164/80 (108) 158/76 (103) Pulse Ox 95 96 96 O2 Delivery Ventilator Ventilator Ventilator Mechanical Ventilator 02/06/20 02/06/20 02/06/20 02/06/20 04:00 04:19 05:00 05:48 Temp 97.8 97.8 Pulse 60 60 Resp 24 24 24 B/P (MAP) 128/62 (84) 160/78 (105) Pulse Ox 88 97 97 O2 Delivery Ventilator Ventilator Ventilator Ventilator 02/06/20 02/06/20 02/06/20 02/06/20 06:00 06:18 08:00 08:14 Pulse 58 58 Resp 24 B/P (MAP) 117/61 (79) 166/85 Pulse Ox 98 O2 Delivery Ventilator Ventilator Mechanical Ventilator 02/06/20 02/06/20 08:15 08:16 Pulse 58 56 B/P (MAP) 168/85 168/85 Intake and Output 02/05/20 02/05/20 02/06/20 15:00 23:00 07:00 Intake Total 50 ml 3340 ml 1420.1 ml Output Total 347 ml 320 ml 470 ml Balance -297 ml 3020 ml 950.1 ml RENU TAI MD Feb 06, 2020 09:19
[2020-02-06 10:36] LABS: FIO2 ABG 100% VENT
[2020-02-06] MEDS: fentaNYL HIGH DOSE PCA 55 ML IV PRN (12:35)
--- NOTE | 2020-02-06 12:41 | PDOC ---
SUBJECTIVE ROS Stable OBJECTIVE Vital Signs Vital Signs Date Time Temp Pulse Resp B/P (MAP) Pulse Ox O2 Delivery O2 Flow Rate FiO2 02/06/20 12:35 24 98 Ventilator 15.0 02/06/20 12:32 56 152/72 02/06/20 08:00 98.7 98.7 I & 0 Intake and Output 02/06/20 07:00 Intake Total 4810.1 ml Output Total 1137 ml Balance 3673.1 ml Intake IV Total 4810.1 ml Output Urine Total 1087 ml Gastric Drainage Total 50 ml PHYSICAL EXAM Physical Exam GEN.: On MV HEENT: Intubated NECK: Supple. LUNGS: Coarse breath sounds HEART: RRR, S1, S2 present. ABDOMEN: Soft, non distended. EXTREMITIES: Without any cyanosis or edema NEUROLOGIC: Sedated PSYCHIATRIC: uanble to obtain . SKIN: No rash Thomas + DIAGNOSIS/ASSESSMENT Assessment & Plan Hypokalemia - Resolved Replace as needed CHRISTIANNE- severe dehydration , DKA , resolved UA unremarkable Toxic and metabolic encephalopathy Suspect gram negative organism pneumonia POS COVID 19 infection DKA/ metabolic acidosis Hypernatremia at presentation on 02/01 History of essential hypertension History of CVA Diabetes mellitus type 2 insulin requiring Will sign off COMMENT/RELEVANT DATA Meds Current Medications Medications (Trade) Dose Ordered Sig/Rick Start Time Stop Time Status Last Admin Dose Admin Acetaminophen (Tylenol) 650 mg PRN Q6HRS PRN 02/02/20 16:15 Acetaminophen/ Butalbital/ Caffeine (Fioricet) 1 tab PRN Q6HRS PRN 02/02/20 16:15 Amlodipine Besylate (Norvasc) 10 mg HS 02/02/20 21:00 02/05/20 21:05 10 MG Aspirin (Aspirin Rectal Supp) 300 mg 1X ONCE 02/02/20 16:15 02/02/20 16:17 DC 02/02/20 16:35 300 MG Aspirin (Grover Aspirin) 325 mg DAILY 02/03/20 09:00 02/06/20 08:15 325 MG Atorvastatin Calcium (Lipitor) 20 mg QHS 02/02/20 21:00 02/05/20 21:05 20 MG Azithromycin 250 ml @ 250 mls/hr 1X ONCE 02/02/20 16:30 02/02/20 17:34 DC 02/02/20 17:40 250 MLS/HR Chlorhexidine Gluconate (Peridex) 15 ml BID 02/02/20 21:00 02/06/20 08:14 15 ML Dexamethasone Sodium Phosphate (Decadron) 10 mg 1X ONCE 02/02/20 16:30 02/02/20 16:33 DC 02/02/20 16:54 10 MG Dextrose (Dextrose 50%-Water Syringe) 12.5 gm PRN Q15MIN PRN 02/03/20 06:15 Dextrose/Sodium Chloride 1,000 ml @ 250 mls/hr Q4H 02/02/20 22:45 02/03/20 11:23 DC 02/03/20 07:59 250 MLS/HR Docusate Sodium (Colace Solution) 100 mg DAILY 02/05/20 09:00 02/06/20 08:16 100 MG Docusate Sodium (Colace) 100 mg BID 02/02/20 21:00 02/04/20 19:30 DC Enoxaparin Sodium (Lovenox 40mg Syringe) 40 mg BID 02/04/20 21:00 02/06/20 08:14 40 MG Etomidate (Amidate) 20 mg 1X ONCE 02/02/20 17:15 02/02/20 17:22 DC Fentanyl Citrate 55 ml @ 1.98 mls/hr CONT PRN 02/06/20 11:00 02/06/20 12:35 1.98 MLS/HR Fentanyl Citrate (Fentanyl 2ml Vial) 50 mcg PRN Q1HR PRN 02/02/20 16:30 Heparin Sodium (Porcine) (Heparin Sodium) 5,000 unit Q8HRS 02/02/20 22:00 02/04/20 14:45 DC 02/04/20 05:32 5,000 UNIT Hydralazine HCl (Apresoline Inj) 10 mg PRN Q4HRS PRN 02/05/20 17:00 02/05/20 18:44 10 MG Hydrochlorothiazide (Hydrodiuril) 25 mg DAILY 02/03/20 09:00 02/06/20 08:15 25 MG Info ([facility] Electrolyte Protocol) 1 ea DAILY 02/03/20 09:00 Insulin Glargine (Lantus Syringe) 18 unit BID 02/03/20 09:00 02/06/20 08:18 18 UNIT Insulin Human Lispro (HumaLOG) 0-9 UNITS Q6HRS 02/03/20 12:00 02/04/20 12:12 3 UNITS Insulin Human Regular 100 ml @ As Directed STK-MED ONCE 02/02/20 16:41 02/02/20 16:41 DC Insulin Human Regular (HumuLIN R VIAL) 8 unit 1X ONCE 02/02/20 16:45 02/02/20 16:46 DC 02/02/20 16:51 8 UNIT Insulin Human Regular 100 unit/ Sodium Chloride 101 ml @ 0 mls/hr CONT PRN 02/03/20 02:15 Isosorbide Dinitrate (Isordil) 10 mg TID 02/02/20 21:00 02/06/20 12:32 10 MG Ketotifen Fumarate (Zaditor) 1 drop BID 02/02/20 21:00 02/06/20 08:16 1 DROP Labetalol HCl (Normodyne Iv Push) 10 mg PRN Q4HRS PRN 02/02/20 20:15 02/04/20 05:20 10 MG Lactulose (Lactulose) 20 gm PRN Q12HR PRN 02/02/20 16:15 Lisinopril (Prinivil) 40 mg DAILY 02/03/20 09:00 02/06/20 08:14 40 MG Meclizine HCl (Antivert) 25 mg PRN Q6HRS PRN 02/02/20 17:45 Metformin HCl (Glucophage) 1,000 mg BIDWMEALS 02/02/20 17:00 Methylprednisolone Sodium Succinate (SOLU-Medrol 40MG VIAL) 40 mg Q8HRS 02/05/20 14:00 02/06/20 12:32 40 MG Metoprolol Tartrate (Lopressor) 50 mg BID 02/02/20 21:00 02/05/20 21:06 50 MG Midazolam HCl (Versed) 5 mg 1X ONCE 02/02/20 16:45 02/02/20 16:46 DC 02/02/20 16:35 5 MG Midazolam HCl 100 mg/Sodium Chloride 100 ml @ 1 mls/hr CONT PRN 02/05/20 10:00 02/06/20 00:16 5 MLS/HR Morphine Sulfate (Morphine Sulfate) 4 mg PRN Q1HR PRN 02/02/20 16:30 Non-Formulary Medication (Hydrochlorothiazide (Hydrochlorothiazide Tablet)) 25 mg DAILY 02/03/20 09:00 UNV Non-Formulary Medication (Insulin Glargine,Hum.rec.anlog (Lantus Solostar)) 80 unit QHS 02/02/20 21:00 UNV Non-Formulary Medication (Insulin Aspart (Novolog)) 25 unit TIDWMEALS 02/02/20 17:00 UNV Non-Formulary Medication (Isosorbide Dinitrate ) 20 mg DAILY 02/03/20 09:00 UNV Non-Formulary Medication (Terazosin Hcl ) 2 cap QHS 02/02/20 21:00 UNV Norepinephrine Bitartrate 8 mg/ Dextrose 258 ml @ 15.519 mls/ hr CONT PRN 02/04/20 22:30 02/04/20 22:48 15 MLS/HR Ondansetron HCl (Zofran Odt) 4 mg PRN Q8HRS PRN 02/02/20 17:45 Oxycodone/ Acetaminophen (Percocet 5/325) 1 tab PRN Q4HRS PRN 02/02/20 16:15 Pantoprazole Sodium (PROTONIX VIAL for IV PUSH) 40 mg 1X ONCE 02/02/20 20:15 02/02/20 20:40 DC 02/02/20 22:47 40 MG Piperacillin Sod/ Tazobactam Sod 3.375 gm/Sodium Chloride 50 ml @ 100 mls/hr Q6HRS 02/03/20 00:00 02/06/20 12:33 100 MLS/HR Piperacillin Sod/ Tazobactam Sod 4.5 gm/Sodium Chloride 100 ml @ 200 mls/hr 1X ONCE 02/02/20 16:30 02/02/20 16:59 DC 02/02/20 17:03 200 MLS/HR Potassium Bicarbonate (Potassium Effervescent Tablet) 40 meq 1X ONCE 02/05/20 07:45 02/05/20 07:46 DC 02/05/20 08:26 40 MEQ Potassium Chloride/Water 100 ml @ 100 mls/hr 1X ONCE 02/04/20 10:00 02/04/20 10:59 DC 02/04/20 10:04 100 MLS/HR Prochlorperazine (Compazine) 25 mg PRN Q12HR PRN 02/02/20 16:15 Prochlorperazine Edisylate (Compazine) 5 mg PRN Q6HRS PRN 02/02/20 16:15 Propofol 100 ml @ 0 mls/hr CONT PRN 02/02/20 16:30 02/06/20 11:15 23.3 MLS/HR Rocuronium Platinum (Zemuron) 50 mg 1X ONCE 02/02/20 17:15 02/02/20 17:34 DC Senna/Docusate Sodium (Senna Plus) 1 tab BID 02/02/20 21:00 02/06/20 08:15 1 TAB Sodium Chloride 1,000 ml @ 125 mls/hr Q8H 02/04/20 16:00 02/06/20 08:20 125 MLS/HR Sodium Chloride (Normal Saline Flush) 3 ml QSHIFT PRN 02/02/20 16:15 Sumatriptan Succinate (Imitrex) 50 mg PRN BID PRN 02/02/20 17:45 Tocilizumab 400 mg/Sodium Chloride 100 ml @ 100 mls/hr 1X ONCE 02/04/20 13:00 02/04/20 13:59 DC 02/04/20 14:53 100 MLS/HR Vecuronium Platinum (Norcuron Bolus) 10 mg PRN Q1HR PRN 02/04/20 19:30 02/05/20 14:04 10 MG Venlafaxine HCl (Effexor) 150 mg BID 02/02/20 21:00 02/05/20 21:05 150 MG Lab Laboratory Tests Test 02/05/20 13:19 02/05/20 13:45 02/05/20 17:49 02/06/20 00:13 Glucose (Fingerstick) 143 mg/dL (70-99) 161 mg/dL (70-99) 198 mg/dL (70-99) Troponin I Quantitative < 0.017 ng/mL (0.000-0.055) Test 02/06/20 05:58 02/06/20 06:00 02/06/20 08:00 Glucose (Fingerstick) 187 mg/dL (70-99) Sodium Level 140 mmol/L (136-145) Potassium Level 3.6 mmol/L (3.5-5.1) Chloride Level 106 mmol/L (98-107) Carbon Dioxide Level 21 mmol/L (21-32) Anion Gap 13 (6-14) Blood Urea Nitrogen 20 mg/dL (8-26) Creatinine 0.9 mg/dL (0.7-1.3) Estimated GFR (Cockcroft-Gault) 109.4 BUN/Creatinine Ratio 22 (6-20) Glucose Level 215 mg/dL (70-99) Calcium Level 7.2 mg/dL (8.5-10.1) Total Bilirubin 0.4 mg/dL (0.2-1.0) Aspartate Amino Transf (AST/SGOT) 29 U/L (15-37) Alanine Aminotransferase (ALT/SGPT) 18 U/L (16-63) Alkaline Phosphatase 201 U/L (46-116) Total Protein 5.3 g/dL (6.4-8.2) Albumin 1.4 g/dL (3.4-5.0) Albumin/Globulin Ratio 0.4 (1.0-1.7) O2 Saturation 93 % (92-99) Arterial Blood pH 7.38 (7.35-7.45) Arterial Blood pCO2 at Patient Temp 34 mmHg (35-46) Arterial Blood pO2 at Patient Temp 70 mmHg (75-108) Arterial Blood HCO3 20 mmol/L (21-28) Arterial Blood Base Excess -5 mmol/L (-3-3) FiO2 100% vent Results All relevant outside records, renal labs, imaging studies, telemetry/EKG's were reviewed. Justicifation of Admission Dx: Justifications for Admission: Justification of Admission Dx: Yes Sepsis: Altered Mental Status YOLANDE KIM MD Feb 06, 2020 12:41
[2020-02-06] MEDS ORDERED: FUROSEMIDE 20 MG/2 ML VIAL. IVP ONE (14:00)
[2020-02-06] MEDS: ATORVASTATIN CALCIUM 20 MG TABLET PO SCH (21:02)
[2020-02-06] MEDS: amLODIPine BESYLATE 10 MG TABLET PO SCH (21:03)
[2020-02-07] VITALS (35 sets, daily range): BP systolic 72–212; BP diastolic 38–86
[2020-02-07] MEDS: INSULIN LISPRO 300 UNITS/3 ML VIAL. SQ SCH ×4 (00:06→17:29)
[2020-02-07] MEDS: PROPOFOL 100 ML IV PRN ×6 (00:17→21:41)
[2020-02-07] MEDS: NOREPINEPHRINE VIAL 8 MG in IV DEXTROSE 5% 250 ML IV PRN (02:51)
[2020-02-07] MEDS: hydrALAZINE 20 MG/ML VIAL. IVP PRN (05:27)
[2020-02-07] MEDS ORDERED: PHENYLEPHRINE INJ 50 MG in IV NORMAL SALINE 250ML 250 ML IV PRN (05:45)
[2020-02-07] MEDS: PIPERACILLIN/TAZOBACTAM 3.375 GM in IV NORMAL SALINE 50ML 50 ML IV SCH ×4 (06:05→23:47)
[2020-02-07] MEDS: methylPREDNISolone SOD SUCC PF 40 MG/ML VIAL. IV SCH ×3 (06:06→21:40)
[2020-02-07 06:35] LABS: BASO # 0.1 x10^3/uL (0.0-0.2); BASO % 1 % (0-3); EOS % 0 % (0-3); HEMATOCRIT 39.1 % (39.0-53.0); HEMOGLOBIN 13.4 g/dL (13.0-17.5); LYMPH # 0.7 x10^3/uL (1.0-4.8); LYMPH % 7 % (24-48); MEAN CORPUSCULAR HEMOGLOBIN 30 pg (25-35); MEAN CORPUSCULAR HGB CONC 34 g/dL (31-37); MEAN CORPUSCULAR VOLUME 86 fL (79-100); MONO # 0.7 x10^3/uL (0.0-1.1); MONO % 7 % (0-9); NEUT # 8.5 x10^3/uL (1.8-7.7); NEUT % 85 % (31-73); PLATELET COUNT 240 x10^3/uL (140-400); RED BLOOD COUNT 4.55 x10^6/uL (4.30-5.70); RED CELL DISTRIBUTION WIDTH 14.2 % (11.5-14.5)
--- NOTE | 2020-02-07 07:03 | PDOC ---
PULMONARY PROGRESS NOTES Subjective on vent sedated, versed fentanyl, samll ett secretion, on dinesh AC mode 100%FIO2/ 10 PEEP Vitals Vital Signs Date Time Temp Pulse Resp B/P (MAP) Pulse Ox O2 Delivery O2 Flow Rate FiO2 02/07/20 05:27 101 190/60 02/07/20 05:00 24 100 Ventilator 02/07/20 02:00 96.8 96.8 02/06/20 13:05 15.0 Comments ros unable to obtain sedated on vent visual exam done due to COVID pandemia nc at appears comfortable no paradoxical abd motion ekg nsr no rash AC mode, no soa sedated/no edema Labs Laboratory Tests Test 02/05/20 08:09 02/05/20 13:19 02/05/20 13:45 02/05/20 17:49 O2 Saturation 85 % (92-99) Arterial Blood pH 7.31 (7.35-7.45) Arterial Blood pCO2 at Patient Temp 50 mmHg (35-46) Arterial Blood pO2 at Patient Temp 53 mmHg (75-108) Arterial Blood HCO3 24 mmol/L (21-28) Arterial Blood Base Excess -2 mmol/L (-3-3) FiO2 100 Glucose (Fingerstick) 143 mg/dL (70-99) 161 mg/dL (70-99) Troponin I Quantitative < 0.017 ng/mL (0.000-0.055) Test 02/06/20 00:13 02/06/20 05:58 02/06/20 06:00 02/06/20 08:00 Glucose (Fingerstick) 198 mg/dL (70-99) 187 mg/dL (70-99) Sodium Level 140 mmol/L (136-145) Potassium Level 3.6 mmol/L (3.5-5.1) Chloride Level 106 mmol/L (98-107) Carbon Dioxide Level 21 mmol/L (21-32) Anion Gap 13 (6-14) Blood Urea Nitrogen 20 mg/dL (8-26) Creatinine 0.9 mg/dL (0.7-1.3) Estimated GFR (Cockcroft-Gault) 109.4 BUN/Creatinine Ratio 22 (6-20) Glucose Level 215 mg/dL (70-99) Calcium Level 7.2 mg/dL (8.5-10.1) Total Bilirubin 0.4 mg/dL (0.2-1.0) Aspartate Amino Transf (AST/SGOT) 29 U/L (15-37) Alanine Aminotransferase (ALT/SGPT) 18 U/L (16-63) Alkaline Phosphatase 201 U/L (46-116) Total Protein 5.3 g/dL (6.4-8.2) Albumin 1.4 g/dL (3.4-5.0) Albumin/Globulin Ratio 0.4 (1.0-1.7) O2 Saturation 93 % (92-99) Arterial Blood pH 7.38 (7.35-7.45) Arterial Blood pCO2 at Patient Temp 34 mmHg (35-46) Arterial Blood pO2 at Patient Temp 70 mmHg (75-108) Arterial Blood HCO3 20 mmol/L (21-28) Arterial Blood Base Excess -5 mmol/L (-3-3) FiO2 100% vent Test 02/06/20 12:45 02/06/20 17:52 02/07/20 00:03 02/07/20 06:12 Glucose (Fingerstick) 220 mg/dL (70-99) 204 mg/dL (70-99) 224 mg/dL (70-99) 179 mg/dL (70-99) Laboratory Tests Test 02/06/20 08:00 02/06/20 12:45 02/06/20 17:52 02/07/20 00:03 O2 Saturation 93 % (92-99) Arterial Blood pH 7.38 (7.35-7.45) Arterial Blood pCO2 at Patient Temp 34 mmHg (35-46) Arterial Blood pO2 at Patient Temp 70 mmHg (75-108) Arterial Blood HCO3 20 mmol/L (21-28) Arterial Blood Base Excess -5 mmol/L (-3-3) FiO2 100% vent Glucose (Fingerstick) 220 mg/dL (70-99) 204 mg/dL (70-99) 224 mg/dL (70-99) Test 02/07/20 06:12 Glucose (Fingerstick) 179 mg/dL (70-99) Medications Active Scripts Medications Dose Route/Sig Max Daily Dose Days Date Category Aspirin 325 Mg Tablet 325 Mg PO DAILY 03/20/19 Rx Venlafaxine Hcl Er (Venlafaxine Hcl) 150 Mg Tab.er.24 1 Tab PO BID 03/18/19 Reported Novolog (Insulin Aspart) 100 Unit/1 Ml Cartridge 25 Unit SQ TIDWMEALS 03/18/19 Reported Metformin Hcl 1,000 Mg Tablet 1,000 Mg PO BIDWMEALS 03/18/19 Reported Zofran (Ondansetron Hcl) 4 Mg Tablet 1 Tab PO Q6HRS 03/18/19 Reported Terazosin Hcl 2 Mg Capsule 2 Cap PO QHS 03/18/19 Reported Lantus Solostar (Insulin Glargine,Hum.rec.anlog) 100 Unit/1 Ml Insuln.pen 80 Unit SQ QHS 03/18/19 Reported Metoprolol Tartrate 50 Mg Tablet 1 Tab PO BID 03/18/19 Reported Omeprazole 20 Mg Capsule.dr 20 Mg PO BID 03/18/19 Reported Lisinopril 40 Mg Tablet 1 Tab PO DAILY 03/18/19 Reported Xhvipv-Dcczxyfe-Hzft 50-325-40 (Butalb/Acetaminophen/Caffeine) 1 Each Tablet 1-2 Tab PO PRN Q4HRS PRN MDD 6 tablets 2 07/30/18 Rx Imitrex (Sumatriptan Succinate) 50 Mg Tablet 50 Mg PO PRN BID PRN 01/15/15 Reported Hydrochlorothiazide Tablet (Hydrochlorothiazide) 12.5 Mg Tablet 25 Mg PO DAILY 01/15/15 Reported Meclizine Hcl 25 Mg Tablet 25 Mg PO PRN TID PRN 90 01/15/15 Reported Patanol (Olopatadine Hcl) 5 Ml Drops 1 Drop EACHEYE BID 01/11/15 Reported Atorvastatin Calcium 20 Mg Tablet 1 Tab PO DAILY 01/11/15 Reported Isosorbide Mononitrate 20 Mg Tablet 20 Mg PO BID 08/22/13 Reported Amlodipine Besylate 10 Mg Tablet 10 Mg PO HS 08/22/13 Reported Isosorbide Dinitrate 30 Mg Tablet 20 Mg PO DAILY 07/15/19 Reported Hydrochlorothiazide Tablet (Hydrochlorothiazide) 25 Mg Tablet 25 Mg PO DAILY 07/15/19 Reported Ondansetron Odt (Ondansetron) 4 Mg Tab.rapdis 1 Tab PO PRN Q6-8HRS PRN 01/31/19 Rx Znilqe-Ktkwpdpd-Zset 50-325-40 (Butalb/Acetaminophen/Caffeine) 1 Each Tablet 1 Each PO Q6HRS PRN 01/31/19 Rx Comments cxr reviewed ett ok, b lat infilt worse Impression . 1. Acute hypoxic respiratory failure secondary to COVID-19 pneumonia and ARDS 2. COVID-19 pneumonia with sepsis. 3. Abnormal chest x-ray with diffuse alveolar infiltrates and somewhat peripheral location. We will monitor closely. Cannot exclude any aspiration pneumonia. cxr 02/06 worse I>>>O will give low dose lasix 4. 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 5. Diabetic ketoacidosis, now anion gap closed and being monitored by PCP.BS better 6. Hypernatremia, s/p IV fluids. resolved Plan . 1. Continue with present assist control mode and follow ABGs and make necessary adjustments. 100%FIO2/ PEEP of 10, abg reviewed, fio2 titration to keep sat >94% 2. Broad-spectrum antibiotics. 3. Monitor clinical course. 4. cxr 02/06 worse I>>>O will give low dose lasix 5. s/p convalescent plasma. s/p Tocilizumab 02/03 6. DKA is resolved, steroids started 02/04, change to q12, 8. DVT and stress ulcer prophylaxis. 9. pressor to keep map > 65 Discussed with RN and RT. critically ill, Critical care time 30 minutes no overlap. NENITA JUÁREZ MD Feb 07, 2020 07:03
[2020-02-07] MEDS: IV 1/2 NORMAL SALINE 1,000 ML IV SCH ×3 (07:55→23:48)
--- NOTE | 2020-02-07 07:57 | RAD ---
CHEST AP ONLY History: Pneumonia Comparison: February 04, 2020 Findings: Single view of the chest is submitted. Endotracheal tube tip terminates about 3.5 cm from cynthia. There is again enteric catheter coursing in the region of the stomach and right internal jugular venous catheter with the tip in the region of the superior aspect of the right atrium. No pneumothorax is identified. There is residual interstitial and airspace opacity bilaterally overall greater at the bilateral lung bases and perihilar regions. There is again greater degree of consolidation of the medial left lung base with air bronchograms and partially obscured left hemidiaphragm There is no significant dependent layering pleural fluid. Impression: 1. There is increased interstitial and airspace opacity with basilar predominance although also seen of the perihilar regions which may be due to infiltrates and/or edema. There are support catheters and tubes as stated. Electronically signed by: Jefferson Velazquez MD (02/07/2020 7:54 AM) [id number]
[2020-02-07 08:36] LABS: BASE EXCESS ABG -6 mmol/L (-3-3); HCO3 ABG 19 mmol/L (21-28); PCO2 ABG 33 mmHg (35-46); PO2 ABG 89 mmHg (75-108); SAT O2 ABG 96 % (92-99)
[2020-02-07] MEDS: PANTOPRAZOLE IV PUSH 40 MG VIAL. IVP SCH (08:42)
[2020-02-07] MEDS: CHLORHEXIDINE 0.12% 15 ML MOUTHWASH. MM SCH ×2 (08:42→21:20)
[2020-02-07] MEDS: ENOXAPARIN 40 MG/0.4 ML SYRINGE. SQ SCH ×2 (08:43→21:22)
[2020-02-07] MEDS: KETOTIFEN FUMARATE 0.025% OPHTH SOLUTION BOTTLE. OU SCH ×2 (08:43→21:00)
[2020-02-07] MEDS: ASPIRIN 325 MG TABLET PO SCH (08:43)
[2020-02-07] MEDS: INSULIN GLARGINE SYRINGE. SQ SCH ×2 (08:45→21:22)
[2020-02-07] MEDS: VENLAFAXINE 75 MG TABLET. PO SCH ×2 (08:49→21:21)
[2020-02-07] MEDS: metFORMIN 500 MG TABLET PO SCH ×2 (08:49→17:00)
[2020-02-07] MEDS: SENNOSIDES/DOCUSATE 8.6/50MG TABLET. PO SCH ×2 (08:50→21:21)
[2020-02-07] MEDS: hydroCHLOROthiazide 25 MG TABLET PO SCH (08:50)
[2020-02-07] MEDS: DOCUSATE 100 MG/10 ML SOLUTION. PO SCH (08:50)
[2020-02-07] MEDS: ELECTROLYTE (ICU) PROTOCOL. MC SCH (09:00)
[2020-02-07] MEDS: LISINOPRIL 20 MG TABLET PO SCH (09:00)
[2020-02-07] MEDS: ISOSORBIDE DINITRATE 10 MG TABLET. PO SCH ×3 (09:00→21:20)
[2020-02-07] MEDS: METOPROLOL TART IMMED RELEASE 50 MG TABLET. PO SCH ×2 (09:00→21:21)
[2020-02-07 11:06] LABS: FIO2 ABG 100%+10
--- NOTE | 2020-02-07 11:19 | PDOC ---
PROGRESS NOTES History of Present Illness History of Present Illness VTE Prophylaxis Ordered VTE Prophylaxis Devices: No VTE Pharmacological Prophylaxi: Yes IMPRESSION Assessment/Plan Toxic and metabolic encephalopathy Sepsis with pulmonary focus most likely Suspect gram negative organism pneumonia POS COVID 19 infection DKA lactic acidosis secondary to a combination of metabolic and infectious process ongoing Acute renal failure, vasomotor etiology most likely Hypernatremia Severe dehydration History of essential hypertension History of CVA Diabetes mellitus type 2 insulin requiring Severe anion gap metabolic acidosis Plan: isolation admit to ICU VENT SUPPORT AC mode 100%FIO2/ 10 PEEP fluid resuscitation DKA protocol Broad spectrum antibiotics for pneumonic process POS COVID 19 infection follow BMP every 4 hours. supportive measures vent management, will consult pulmonology for assistance. further recommendations based on clinical course DVT prophylaxis: heparin cardiology consult cxr 02/06 worse I>>>O will give low dose lasix s/p convalescent plasma. s/p Tocilizumab 02/03 02/06 Suspect gram negative organism pneumonia worsening hypoxia AC mode 100%FIO2/ 9 PEEP Justicifation of Admission Dx: Justicifation of Admission Dx: Justifications for Admission: Justification of Admission Dx: Yes Sepsis: Altered Mental Status 39 MIN CC TIME Vitals Vitals Vital Signs Date Time Temp Pulse Resp B/P (MAP) Pulse Ox O2 Delivery O2 Flow Rate FiO2 02/07/20 11:00 71 24 109/58 (75) 100 Ventilator 02/07/20 07:00 98.4 98.4 02/06/20 13:05 15.0 Physical Exam Physical Exam SEDATED ON VENT LUNGS: Coarse breath sounds HEART: RRR, S1, S2 present. Peripheral pulses intact ABDOMEN: Soft, non distended. Positive bowel sounds. EXTREMITIES: Without any cyanosis. NEUROLOGIC: Sedated PSYCHIATRIC: uanble to obtain due to acute process . SKIN: No ulcerations General: Cooperative Extremities: No cyanosis Labs LABS History: Pneumonia Comparison: February 04, 2020 Findings: Single view of the chest is submitted. Endotracheal tube tip terminates about 3.5 cm from cynthia. There is again enteric catheter coursing in the region of the stomach and right internal jugular venous catheter with the tip in the region of the superior aspect of the right atrium. No pneumothorax is identified. There is residual interstitial and airspace opacity bilaterally overall greater at the bilateral lung bases and perihilar regions. There is again greater degree of consolidation of the medial left lung base with air bronchograms and partially obscured left hemidiaphragm There is no significant dependent layering pleural fluid. Impression: 1. There is increased interstitial and airspace opacity with basilar predominance although also seen of the perihilar regions which may be due to infiltrates and/or edema. There are support catheters and tubes as stated. Electronically signed by: Chayito Adan MD (02/07/2020 7:54 AM) [id number] DICTATED and SIGNED BY: CHAYITO ADAN MD Laboratory Tests Test 02/06/20 12:45 02/06/20 17:52 02/07/20 00:03 02/07/20 06:00 Glucose (Fingerstick) 220 mg/dL (70-99) 204 mg/dL (70-99) 224 mg/dL (70-99) White Blood Count 10.0 x10^3/uL (4.0-11.0) Red Blood Count 4.55 x10^6/uL (4.30-5.70) Hemoglobin 13.4 g/dL (13.0-17.5) Hematocrit 39.1 % (39.0-53.0) Mean Corpuscular Volume 86 fL (79-100) Mean Corpuscular Hemoglobin 30 pg (25-35) Mean Corpuscular Hemoglobin Concent 34 g/dL (31-37) Red Cell Distribution Width 14.2 % (11.5-14.5) Platelet Count 240 x10^3/uL (140-400) Neutrophils (%) (Auto) 85 % (31-73) Lymphocytes (%) (Auto) 7 % (24-48) Monocytes (%) (Auto) 7 % (0-9) Eosinophils (%) (Auto) 0 % (0-3) Basophils (%) (Auto) 1 % (0-3) Neutrophils # (Auto) 8.5 x10^3/uL (1.8-7.7) Lymphocytes # (Auto) 0.7 x10^3/uL (1.0-4.8) Monocytes # (Auto) 0.7 x10^3/uL (0.0-1.1) Eosinophils # (Auto) 0.0 x10^3/uL (0.0-0.7) Basophils # (Auto) 0.1 x10^3/uL (0.0-0.2) Test 02/07/20 06:12 02/07/20 08:33 02/07/20 09:06 Glucose (Fingerstick) 179 mg/dL (70-99) 175 mg/dL (70-99) O2 Saturation 96 % (92-99) Arterial Blood pH 7.37 (7.35-7.45) Arterial Blood pCO2 at Patient Temp 33 mmHg (35-46) Arterial Blood pO2 at Patient Temp 89 mmHg (75-108) Arterial Blood HCO3 19 mmol/L (21-28) Arterial Blood Base Excess -6 mmol/L (-3-3) FiO2 100%+10 Assessment and Plan Assessmemt and Plan Problems Medical Problems: (1) Acute metabolic encephalopathy Status: Acute (2) Acute renal insufficiency Status: Acute (3) DKA (diabetic ketoacidoses) Status: Acute (4) Pneumonia Status: Acute (5) Respiratory failure with hypoxia Status: Acute (6) Suspected 2019 novel coronavirus infection Status: Acute Comment Review of Relevant I have reviewed the following items myra (where applicable) has been applied. Labs Laboratory Tests Test 02/05/20 13:19 02/05/20 13:45 02/05/20 17:49 02/06/20 00:13 Glucose (Fingerstick) 143 mg/dL (70-99) 161 mg/dL (70-99) 198 mg/dL (70-99) Troponin I Quantitative < 0.017 ng/mL (0.000-0.055) Test 02/06/20 05:58 02/06/20 06:00 02/06/20 08:00 02/06/20 12:45 Glucose (Fingerstick) 187 mg/dL (70-99) 220 mg/dL (70-99) Sodium Level 140 mmol/L (136-145) Potassium Level 3.6 mmol/L (3.5-5.1) Chloride Level 106 mmol/L (98-107) Carbon Dioxide Level 21 mmol/L (21-32) Anion Gap 13 (6-14) Blood Urea Nitrogen 20 mg/dL (8-26) Creatinine 0.9 mg/dL (0.7-1.3) Estimated GFR (Cockcroft-Gault) 109.4 BUN/Creatinine Ratio 22 (6-20) Glucose Level 215 mg/dL (70-99) Calcium Level 7.2 mg/dL (8.5-10.1) Total Bilirubin 0.4 mg/dL (0.2-1.0) Aspartate Amino Transf (AST/SGOT) 29 U/L (15-37) Alanine Aminotransferase (ALT/SGPT) 18 U/L (16-63) Alkaline Phosphatase 201 U/L (46-116) Total Protein 5.3 g/dL (6.4-8.2) Albumin 1.4 g/dL (3.4-5.0) Albumin/Globulin Ratio 0.4 (1.0-1.7) O2 Saturation 93 % (92-99) Arterial Blood pH 7.38 (7.35-7.45) Arterial Blood pCO2 at Patient Temp 34 mmHg (35-46) Arterial Blood pO2 at Patient Temp 70 mmHg (75-108) Arterial Blood HCO3 20 mmol/L (21-28) Arterial Blood Base Excess -5 mmol/L (-3-3) FiO2 100% vent Test 02/06/20 17:52 02/07/20 00:03 02/07/20 06:00 02/07/20 06:12 Glucose (Fingerstick) 204 mg/dL (70-99) 224 mg/dL (70-99) 179 mg/dL (70-99) White Blood Count 10.0 x10^3/uL (4.0-11.0) Red Blood Count 4.55 x10^6/uL (4.30-5.70) Hemoglobin 13.4 g/dL (13.0-17.5) Hematocrit 39.1 % (39.0-53.0) Mean Corpuscular Volume 86 fL (79-100) Mean Corpuscular Hemoglobin 30 pg (25-35) Mean Corpuscular Hemoglobin Concent 34 g/dL (31-37) Red Cell Distribution Width 14.2 % (11.5-14.5) Platelet Count 240 x10^3/uL (140-400) Neutrophils (%) (Auto) 85 % (31-73) Lymphocytes (%) (Auto) 7 % (24-48) Monocytes (%) (Auto) 7 % (0-9) Eosinophils (%) (Auto) 0 % (0-3) Basophils (%) (Auto) 1 % (0-3) Neutrophils # (Auto) 8.5 x10^3/uL (1.8-7.7) Lymphocytes # (Auto) 0.7 x10^3/uL (1.0-4.8) Monocytes # (Auto) 0.7 x10^3/uL (0.0-1.1) Eosinophils # (Auto) 0.0 x10^3/uL (0.0-0.7) Basophils # (Auto) 0.1 x10^3/uL (0.0-0.2) Test 02/07/20 08:33 02/07/20 09:06 O2 Saturation 96 % (92-99) Arterial Blood pH 7.37 (7.35-7.45) Arterial Blood pCO2 at Patient Temp 33 mmHg (35-46) Arterial Blood pO2 at Patient Temp 89 mmHg (75-108) Arterial Blood HCO3 19 mmol/L (21-28) Arterial Blood Base Excess -6 mmol/L (-3-3) FiO2 100%+10 Glucose (Fingerstick) 175 mg/dL (70-99) Laboratory Tests Test 02/06/20 12:45 02/06/20 17:52 02/07/20 00:03 02/07/20 06:00 Glucose (Fingerstick) 220 mg/dL (70-99) 204 mg/dL (70-99) 224 mg/dL (70-99) White Blood Count 10.0 x10^3/uL (4.0-11.0) Red Blood Count 4.55 x10^6/uL (4.30-5.70) Hemoglobin 13.4 g/dL (13.0-17.5) Hematocrit 39.1 % (39.0-53.0) Mean Corpuscular Volume 86 fL (79-100) Mean Corpuscular Hemoglobin 30 pg (25-35) Mean Corpuscular Hemoglobin Concent 34 g/dL (31-37) Red Cell Distribution Width 14.2 % (11.5-14.5) Platelet Count 240 x10^3/uL (140-400) Neutrophils (%) (Auto) 85 % (31-73) Lymphocytes (%) (Auto) 7 % (24-48) Monocytes (%) (Auto) 7 % (0-9) Eosinophils (%) (Auto) 0 % (0-3) Basophils (%) (Auto) 1 % (0-3) Neutrophils # (Auto) 8.5 x10^3/uL (1.8-7.7) Lymphocytes # (Auto) 0.7 x10^3/uL (1.0-4.8) Monocytes # (Auto) 0.7 x10^3/uL (0.0-1.1) Eosinophils # (Auto) 0.0 x10^3/uL (0.0-0.7) Basophils # (Auto) 0.1 x10^3/uL (0.0-0.2) Test 02/07/20 06:12 02/07/20 08:33 02/07/20 09:06 Glucose (Fingerstick) 179 mg/dL (70-99) 175 mg/dL (70-99) O2 Saturation 96 % (92-99) Arterial Blood pH 7.37 (7.35-7.45) Arterial Blood pCO2 at Patient Temp 33 mmHg (35-46) Arterial Blood pO2 at Patient Temp 89 mmHg (75-108) Arterial Blood HCO3 19 mmol/L (21-28) Arterial Blood Base Excess -6 mmol/L (-3-3) FiO2 100%+10 Microbiology 02/02/20 Blood Culture - Preliminary, Resulted NO GROWTH AFTER 4 DAYS Medications Current Medications Sodium Chloride 1,000 ml @ 1,000 mls/hr 1X ONCE IV Last administered on 01/17 02/05at 16:48; Start 02/02/20 at 15:45; Stop 02/02/20 at 16:44; Status DC Etomidate (Amidate) 20 mg 1X ONCE IV Last administered on 02/02/20at 15:54; Start 02/02/20 at 15:45; Stop 02/02/20 at 15:52; Status DC Rocuronium [place] (Zemuron) 50 mg 1X ONCE IV Last administered on 02/02/20at 15:55; Start 02/02/20 at 15:45; Stop 02/02/20 at 15:52; Status DC Propofol 100 ml @ 0 mls/hr CONT PRN IV SEE PROTOCOL Last administered on 02/02/20at 16:33; Start 02/02/20 at 15:45; Stop 02/02/20 at 17:44; Status DC Chlorhexidine Gluconate (Peridex) 15 ml BID MM ; Start 02/02/20 at 21:00; Stop 02/02/20 at 17:39; Status DC Fentanyl Citrate (Fentanyl 2ml Vial) 100 mcg 1X ONCE IV Last administered on 02/02/20at 16:34; Start 02/02/20 at 16:15; Stop 02/02/20 at 16:16; Status DC Sodium Chloride 1,000 ml @ 1,000 mls/hr 1X ONCE IV Last administered on 02/02/20at 16:15; Start 02/02/20 at 16:15; Stop 02/02/20 at 17:20; Status DC Aspirin (Aspirin Rectal Supp) 300 mg 1X ONCE MN Last administered on 02/02/20at 16:35; Start 02/02/20 at 16:15; Stop 02/02/20 at 16:17; Status DC Acetaminophen (Tylenol) 650 mg PRN Q6HRS PRN PO Headaches, Temp > 101.5'; Sta rt 02/02/20 at 16:15 Prochlorperazine Edisylate (Compazine) 5 mg PRN Q6HRS PRN IVP NAUSEA/VOMITING; Start 02/02/20 at 16:15 Prochlorperazine (Compazine) 25 mg PRN Q12HR PRN MN NAUSEA/VOMITING; Start 02/02/20 at 16:15 Info (Icu Electrolyte Protocol) 1 ea DAILY MC ; Start 02/03/20 at 09:00 Heparin Sodium (Porcine) (Heparin Sodium) 5,000 unit Q8HRS SQ Last administered on 02/04/20at 05:32; Start 02/02/20 at 22:00; Stop 02/04/20 at 14:45; Status DC Sodium Chloride (Normal Saline Flush) 3 ml QSHIFT PRN IV AFTER MEDS AND BLOOD DRAWS; Start 02/02/20 at 16:15 Oxycodone/ Acetaminophen (Percocet 5/325) 1 tab PRN Q4HRS PRN PO MILD PAIN, 1ST CHOICE; Start 02/02/20 at 16:15 Morphine Sulfate (Morphine Sulfate) 2 mg PRN Q1HR PRN IV PAIN; Start 02/02/20 at 16:15 Senna/Docusate Sodium (Senna Plus) 1 tab BID PO Last administered on 02/07/20at 08:50; Start 02/02/20 at 21:00 Docusate Sodium (Colace) 100 mg BID PO ; Start 02/02/20 at 21:00; Stop 02/04/20 at 19:30; Status DC Lactulose (Lactulose) 20 gm PRN Q12HR PRN PO CONSTIPATION; Start 02/02/20 at 16:15 Amlodipine Besylate (Norvasc) 10 mg HS PO Last administered on 02/06/20at 21:03; Start 02/02/20 at 21:00 Aspirin (Grover Aspirin) 325 mg DAILY PO Last administered on 02/07/20at 08:43; Start 02/03/20 at 09:00 Atorvastatin Calcium (Lipitor) 20 mg QHS PO Last administered on 02/06/20at 21:02; Start 02/02/20 at 21:00 Acetaminophen/ Butalbital/ Caffeine (Fioricet) 1 tab PRN Q6HRS PRN PO MIGRAINE HEADACHE- 1ST CHOICE; Start 02/02/20 at 16:15 Hydrochlorothiazide (Hydrodiuril) 25 mg DAILY PO Last administered on 02/07/20at 08:50; Start 02/03/20 at 09:00 Isosorbide Dinitrate (Isordil) 10 mg TID PO Last administered on 02/06/20at 21:03; Start 02/02/20 at 21:00 Lisinopril (Prinivil) 40 mg DAILY PO Last administered on 02/06/20at 08:14; Start 02/03/20 at 09:00 Metoprolol Tartrate (Lopressor) 50 mg BID PO Last administered on 02/05/20at 21:06; Start 02/02/20 at 21:00 Non-Formulary Medication (Hydrochlorothiazide (Hydrochlorothiazide Tablet)) 25 mg DAILY PO ; Start 02/03/20 at 09:00; Status UNV Non-Formulary Medication (Insulin Aspart (Novolog)) 25 unit TIDWMEALS SQ ; Start 02/02/20 at 17:00; Status UNV Non-Formulary Medication (Insulin Glargine,Hum.rec.anlog (Lantus Solostar)) 80 unit QHS SQ ; Start 02/02/20 at 21:00; Status UNV Non-Formulary Medication (Isosorbide Dinitrate ) 20 mg DAILY PO ; Start 02/03/20 at 09:00; Status UNV Meclizine HCl (Antivert) 25 mg PRN Q6HRS PRN PO NAUSEA- 2ND CHOICE; Start 02/02/20 at 17:45 Metformin HCl (Glucophage) 1,000 mg BIDWMEALS PO Last administered on 02/07/20at 08:49; Start 02/02/20 at 17:00 Ketotifen Fumarate (Zaditor) 1 drop BID OU Last administered on 02/07/20at 08:43; Start 02/02/20 at 21:00 Pantoprazole Sodium (PROTONIX VIAL for IV PUSH) 40 mg DAILYAC IVP Last administered on 02/07/20at 08:42; Start 02/03/20 at 07:30 Ondansetron HCl (Zofran Odt) 4 mg PRN Q8HRS PRN PO NAUSEA/VOMITING, 1ST CHOICE PO; Start 02/02/20 at 17:45 Sumatriptan Succinate (Imitrex) 50 mg PRN BID PRN PO MIGRAINE HEADACHE; Start 02/02/20 at 17:45 Non-Formulary Medication (Terazosin Hcl ) 2 cap QHS PO ; Start 02/02/20 at 21:00; Status UNV Venlafaxine HCl (Effexor) 150 mg BID PO Last administered on 02/07/20at 08:49; Start 02/02/20 at 21:00 Fentanyl Citrate 30 ml @ 0 mls/hr CONT PRN IV SEE PROTOCOL Last administered on 02/06/20at 05:48; Start 02/02/20 at 16:30; Stop 02/06/20 at 10:59; Status DC Propofol 100 ml @ 0 mls/hr CONT PRN IV SEE PROTOCOL Last administered on 02/07/20at 08:42; Start 02/02/20 at 16:30 Fentanyl Citrate (Fentanyl 2ml Vial) 25 mcg PRN Q1HR PRN IV SEE COMMENTS; Start 02/02/20 at 16:30 Fentanyl Citrate (Fentanyl 2ml Vial) 50 mcg PRN Q1HR PRN IV SEE COMMENTS; Start 02/02/20 at 16:30 Chlorhexidine Gluconate (Peridex) 15 ml BID MM Last administered on 02/07/20at 08:42; Start 02/02/20 at 21:00 Morphine Sulfate (Morphine Sulfate) 2 mg PRN Q1HR PRN IV SEE COMMENTS.; Start 02/02/20 at 16:30 Morphine Sulfate (Morphine Sulfate) 4 mg PRN Q1HR PRN IV SEE COMMENTS.; Start 02/02/20 at 16:30 Midazolam HCl (Versed) 1 mg PRN Q30MIN PRN IV SEE COMMENTS.; Start 02/02/20 at 16:30 Piperacillin Sod/ Tazobactam Sod 4.5 gm/Sodium Chloride 100 ml @ 200 mls/hr 1X ONCE IV Last administered on 02/02/20at 17:03; Start 02/02/20 at 16:30; Stop 02/02/20 at 16:59; Status DC Azithromycin 250 ml @ 250 mls/hr 1X ONCE IV Last administered on 02/02/20at 17:40; Start 02/02/20 at 16:30; Stop 02/02/20 at 17:34; Status DC Dexamethasone Sodium Phosphate (Decadron) 10 mg 1X ONCE IVP Last administered on 02/02/20at 16:54; Start 02/02/20 at 16:30; Stop 02/02/20 at 16:33; Status DC Midazolam HCl (Versed) 5 mg 1X ONCE IV Last administered on 02/02/20at 16:35; Start 02/02/20 at 16:45; Stop 02/02/20 at 16:46; Status DC Insulin Human Regular (HumuLIN R VIAL) 8 unit 1X ONCE SQ Last administered on 02/02/20at 16:51; Start 02/02/20 at 16:45; Stop 02/02/20 at 16:46; Status DC Sodium Chloride 1,000 ml @ 500 mls/hr Q2H IV Last administered on 02/02/20at 18:33; Start 02/02/20 at 16:36; Stop 02/02/20 at 18:35; Status DC Insulin Human Regular 100 unit/ Sodium Chloride 101 ml @ 0 mls/hr CONT PRN PRN IV PER PROTOCOL Last administered on 02/03/20at 02:08; Start 02/02/20 at 16:45; Stop 02/03/20 at 02:31; Status DC Insulin Human Regular 100 ml @ As Directed STK-MED ONCE IV ; Start 02/02/20 at 16:41; Stop 02/02/20 at 16:41; Status DC Etomidate (Amidate) 20 mg 1X ONCE IV ; Start 02/02/20 at 17:15; Stop 02/02/20 at 17:22; Status DC Rocuronium [place] (Zemuron) 50 mg 1X ONCE IV ; Start 02/02/20 at 17:15; Stop 02/02/20 at 17:34; Status DC Piperacillin Sod/ Tazobactam Sod 3.375 gm/Sodium Chloride 50 ml @ 100 mls/hr Q6HRS IV Last administered on 02/07/20at 06:05; Start 02/03/20 at 00:00 Sodium Chloride 1,000 ml @ 250 mls/hr Q4H IV Last administered on 02/02/20at 18:43; Start 02/02/20 at 18:45; Stop 02/02/20 at 22:40; Status DC Pantoprazole Sodium (PROTONIX VIAL for IV PUSH) 40 mg 1X ONCE IVP Last administered on 02/02/20at 22:47; Start 02/02/20 at 20:15; Stop 02/02/20 at 20:40; Status DC Labetalol HCl (Normodyne Iv Push) 10 mg PRN Q4HRS PRN IVP HYPERTENSION Last administered on 02/04/20at 05:20; Start 02/02/20 at 20:15 Dextrose/Sodium Chloride 1,000 ml @ 250 mls/hr Q4H IV Last administered on 02/03/20at 07:59; Start 02/02/20 at 22:45; Stop 02/03/20 at 11:23; Status DC Insulin Human Regular 100 unit/ Sodium Chloride 101 ml @ 0 mls/hr CONT PRN IV SEE I/O RECORD; Start 02/03/20 at 02:15 Potassium Chloride/Water 100 ml @ 100 mls/hr PRN Q1HR PRN IV SEE COMMENTS; Start 02/03/20 at 05:00 Potassium Chloride/Water 100 ml @ 100 mls/hr Q1H IV Last administered on 02/03/20at 07:58; Start 02/03/20 at 05:00; Stop 02/03/20 at 08:59; Status DC Insulin Glargine (Lantus Syringe) 18 unit BID SQ Last administered on 02/07/20at 08:45; Start 02/03/20 at 09:00 Insulin Human Lispro (HumaLOG) 0-9 UNITS Q6HRS SQ Last administered on 02/07/20at 06:13; Start 02/03/20 at 12:00 Dextrose (Dextrose 50%-Water Syringe) 12.5 gm PRN Q15MIN PRN IV SEE COMMENTS; Start 02/03/20 at 06:15 Sodium Chloride 1,000 ml @ 125 mls/hr 1X ONCE IV Last administered on 02/03/20at 12:01; Start 02/03/20 at 11:30; Stop 02/03/20 at 19:29; Status DC Vecuronium [place] (Norcuron Bolus) 10 mg PRN Q6HRS PRN IV SEDATION Last administered on 02/04/20at 12:09; Start 02/04/20 at 07:30; Stop 02/04/20 at 19:30; Status DC Potassium Chloride/Water 100 ml @ 100 mls/hr 1X ONCE IV Last administered on 02/04/20at 10:04; Start 02/04/20 at 10:00; Stop 02/04/20 at 10:59; Status DC Tocilizumab 400 mg/Sodium Chloride 100 ml @ 100 mls/hr 1X ONCE IV Last administered on 02/04/20at 14:53; Start 02/04/20 at 13:00; Stop 02/04/20 at 13:59; Status DC Enoxaparin Sodium (Lovenox 40mg Syringe) 40 mg BID SQ Last administered on 02/07/20at 08:43; Start 02/04/20 at 21:00 Sodium Chloride 1,000 ml @ 125 mls/hr Q8H IV Last administered on 02/07/20at 07:55; Start 02/04/20 at 16:00 Vecuronium [place] (Norcuron Bolus) 10 mg PRN Q1HR PRN IV SEDATION Last administered on 02/05/20at 14:04; Start 02/04/20 at 19:30 Docusate Sodium (Colace Solution) 100 mg DAILY PO Last administered on 02/07/20at 08:50; Start 02/05/20 at 09:00 Norepinephrine Bitartrate 8 mg/ Dextrose 258 ml @ 15.519 mls/ hr CONT PRN IV PER PROTOCOL Last administered on 02/07/20at 02:51; Start 02/04/20 at 22:30 Potassium Bicarbonate (Potassium Effervescent Tablet) 40 meq 1X ONCE PO Last administered on 02/05/20at 08:26; Start 02/05/20 at 07:45; Stop 02/05/20 at 07:46; Status DC Midazolam HCl 100 mg/Sodium Chloride 100 ml @ 1 mls/hr CONT PRN IV . Last administered on 02/06/20at 21:08; Start 02/05/20 at 10:00 Methylprednisolone Sodium Succinate (SOLU-Medrol 40MG VIAL) 40 mg Q8HRS IV Last administered on 02/07/20at 06:06; Start 02/05/20 at 14:00 Hydralazine HCl (Apresoline Inj) 10 mg PRN Q4HRS PRN IVP ELEVATED BP, SEE COMMENTS Last administered on 02/07/20at 05:27; Start 02/05/20 at 17:00 Fentanyl Citrate 55 ml @ 1.98 mls/hr CONT PRN IV SEE PROTOCOL Last administered on 02/06/20at 12:35; Start 02/06/20 at 11:00 Furosemide (Lasix) 20 mg 1X ONCE IVP Last administered on 02/06/20at 14:08; Start 02/06/20 at 14:00; Stop 02/06/20 at 14:01; Status DC Phenylephrine HCl 50 mg/Sodium Chloride 255 ml @ 13.372 mls/ hr CONT PRN IV SEE I/O RECORD Last administered on 02/07/20at 05:51; Start 02/07/20 at 05:45 Active Scripts Active Aspirin 325 Mg Tablet 325 Mg PO DAILY [id number] 50-325-40 (Butalb/Acetaminophen/Caffeine) 1 Each Tablet 1-2 Tab PO PRN Q4HRS PRN MDD 6 tablets 2 Days Ondansetron Odt (Ondansetron) 4 Mg Tab.rapdis 1 Tab PO PRN Q6-8HRS PRN [id number] 50-325-40 (Butalb/Acetaminophen/Caffeine) 1 Each Tablet 1 Each PO Q6HRS PRN Reported Venlafaxine Hcl Er (Venlafaxine Hcl) 150 Mg Tab.er.24 1 Tab PO BID Novolog (Insulin Aspart) 100 Unit/1 Ml Cartridge 25 Unit SQ TIDWMEALS Metformin Hcl 1,000 Mg Tablet 1,000 Mg PO BIDWMEALS Zofran (Ondansetron Hcl) 4 Mg Tablet 1 Tab PO Q6HRS Terazosin Hcl 2 Mg Capsule 2 Cap PO QHS Lantus Solostar (Insulin Glargine,Hum.rec.anlog) 100 Unit/1 Ml Insuln.pen 80 Unit SQ QHS Metoprolol Tartrate 50 Mg Tablet 1 Tab PO BID Omeprazole 20 Mg Capsule.dr 20 Mg PO BID Lisinopril 40 Mg Tablet 1 Tab PO DAILY Imitrex (Sumatriptan Succinate) 50 Mg Tablet 50 Mg PO PRN BID PRN Hydrochlorothiazide Tablet (Hydrochlorothiazide) 12.5 Mg Tablet 25 Mg PO DAILY Meclizine Hcl 25 Mg Tablet 25 Mg PO PRN TID PRN 90 Days Patanol (Olopatadine Hcl) 5 Ml Drops 1 Drop EACHEYE BID Atorvastatin Calcium 20 Mg Tablet 1 Tab PO DAILY Isosorbide Mononitrate 20 Mg Tablet 20 Mg PO BID Amlodipine Besylate 10 Mg Tablet 10 Mg PO HS Isosorbide Dinitrate 30 Mg Tablet 20 Mg PO DAILY Hydrochlorothiazide Tablet (Hydrochlorothiazide) 25 Mg Tablet 25 Mg PO DAILY Vitals/I & O Vital Sign - Last 24 Hours 02/06/20 02/06/20 02/06/20 02/06/20 11:45 12:00 12:00 12:32 Temp 98.1 98.1 Pulse 56 56 Resp 24 B/P (MAP) 147/65 (92) 152/72 Pulse Ox 98 91 O2 Delivery Ventilator Mechanical Ventilator Ventilator 02/06/20 02/06/20 02/06/20 02/06/20 12:35 13:00 13:05 14:00 Pulse 58 56 Resp 24 24 24 B/P (MAP) 147/66 (93) 152/66 (94) Pulse Ox 98 93 93 94 O2 Delivery Ventilator Ventilator Ventilator Ventilator O2 Flow Rate 15.0 15.0 02/06/20 02/06/20 02/06/20 02/06/20 15:00 16:00 16:00 16:29 Temp 97.6 97.6 Pulse 58 58 Resp 24 24 B/P (MAP) 142/66 (91) 142/66 (91) Pulse Ox 96 96 98 O2 Delivery Ventilator Ventilator Mechanical Ventilator Ventilator 6/20/02/06/20 02/06/20 02/06/20 17:00 18:00 19:00 20:00 Pulse 56 56 56 54 Resp 24 24 24 24 B/P (MAP) 141/68 (92) 136/68 (90) 123/59 (80) 124/60 (81) Pulse Ox 94 94 95 96 O2 Delivery Ventilator Ventilator Ventilator Ventilator 02/06/20 02/06/20 02/06/20 02/06/20 20:00 21:00 21:00 21:03 Temp 95.0 95.0 Pulse 52 52 52 Resp 24 B/P (MAP) 130/64 (86) 132/65 134/65 Pulse Ox 96 O2 Delivery Mechanical Ventilator Ventilator 02/06/20 02/06/20 02/06/20 02/06/20 21:03 21:11 22:00 23:00 Pulse 52 55 58 Resp 24 24 B/P (MAP) 132/65 125/62 (83) 122/61 (81) Pulse Ox 98 100 99 O2 Delivery Ventilator Ventilator Ventilator 02/07/20 02/07/20 02/07/20 02/07/20 00:00 00:01 00:32 01:00 Temp 96.1 96.1 Pulse 57 59 Resp 24 24 B/P (MAP) 122/59 (80) 114/55 (74) Pulse Ox 98 98 97 O2 Delivery Mechanical Ventilator Ventilator Ventilator Ventilator 02/07/20 02/07/20 02/07/20 02/07/20 02:00 02:40 02:45 02:50 Temp 96.8 96.8 Pulse 62 Resp 24 B/P (MAP) 102/52 (69) 86/56 (66) 78/40 (53) 80/40 (53) Pulse Ox 98 O2 Delivery Ventilator 02/07/20 02/07/20 02/07/20 02/07/20 03:00 03:15 03:20 03:30 Pulse 64 Resp 24 B/P (MAP) 89/54 (66) 108/52 (70) 182/82 (115) Pulse Ox 99 O2 Delivery Ventilator Mechanical Ventilator 02/07/20 02/07/20 02/07/20 02/07/20 03:45 04:15 04:15 04:30 B/P (MAP) 194/80 (118) 96/50 (65) 88/46 (60) Pulse Ox 96 O2 Delivery Ventilator 02/07/20 02/07/20 02/07/20 02/07/20 04:45 05:00 05:15 05:27 Pulse 100 101 Resp 24 B/P (MAP) 82/44 (57) 152/72 (98) 212/86 (128) 190/60 Pulse Ox 100 O2 Delivery Ventilator 02/07/20 02/07/20 02/07/20 02/07/20 05:30 05:45 06:00 07:00 Temp 98.1 98.4 98.1 98.4 Pulse 86 83 Resp 24 24 B/P (MAP) 130/60 (83) 72/38 (49) 86/42 (57) 148/64 (92) Pulse Ox 100 100 O2 Delivery Ventilator Ventilator 02/07/20 02/07/20 02/07/20 02/07/20 08:00 08:00 08:33 09:00 Pulse 81 79 Resp 24 B/P (MAP) 145/65 (91) 115/57 Pulse Ox 100 100 O2 Delivery Mechanical Ventilator Ventilator Ventilator 02/07/20 02/07/20 02/07/20 02/07/20 09:00 09:00 09:00 10:00 Pulse 79 79 79 79 Resp 24 24 B/P (MAP) 115/57 115/57 135/67 (89) 115/57 (76) Pulse Ox 100 100 O2 Delivery Ventilator Ventilator 02/07/20 11:00 Pulse 71 Resp 24 B/P (MAP) 109/58 (75) Pulse Ox 100 O2 Delivery Ventilator Intake and Output 02/06/20 02/06/20 02/07/20 15:00 23:00 07:00 Intake Total 1820.9 ml 1696 ml Output Total 460 ml 825 ml 700 ml Balance -460 ml 995.9 ml 996 ml RENU TAI MD Feb 07, 2020 11:19
[2020-02-07] MEDS ORDERED: FUROSEMIDE 20 MG/2 ML VIAL. IVP ONE (13:15)
[2020-02-07] MEDS: fentaNYL HIGH DOSE PCA 55 ML IV PRN (14:54)
[2020-02-07] MEDS: MIDAZOLAM HCL 100 MG in IV NORMAL SALINE 100ML 100 ML IV PRN (16:20)
[2020-02-07] MEDS: amLODIPine BESYLATE 10 MG TABLET PO SCH (21:21)
[2020-02-07] MEDS: ATORVASTATIN CALCIUM 20 MG TABLET PO SCH (21:21)
[2020-02-08] VITALS (29 sets, daily range): BP systolic 120–198; BP diastolic 53–79
[2020-02-08] MEDS: PROPOFOL 100 ML IV PRN ×6 (01:23→22:58)
[2020-02-08] MEDS: hydrALAZINE 20 MG/ML VIAL. IVP PRN ×2 (05:16→08:17)
[2020-02-08] MEDS: methylPREDNISolone SOD SUCC PF 40 MG/ML VIAL. IV SCH ×3 (05:53→22:09)
[2020-02-08] MEDS: PIPERACILLIN/TAZOBACTAM 3.375 GM in IV NORMAL SALINE 50ML 50 ML IV SCH ×3 (05:53→18:17)
[2020-02-08] MEDS: INSULIN LISPRO 300 UNITS/3 ML VIAL. SQ SCH ×4 (06:00→17:39)
[2020-02-08 06:51] LABS: BASO % 0 % (0-3); EOS # 0.1 x10^3/uL (0.0-0.7); EOS % 1 % (0-3); HEMATOCRIT 37.8 % (39.0-53.0); HEMOGLOBIN 12.8 g/dL (13.0-17.5); LYMPH # 0.9 x10^3/uL (1.0-4.8); LYMPH % 8 % (24-48); MEAN CORPUSCULAR HEMOGLOBIN 29 pg (25-35); MEAN CORPUSCULAR HGB CONC 34 g/dL (31-37); MEAN CORPUSCULAR VOLUME 86 fL (79-100); MONO # 1.1 x10^3/uL (0.0-1.1); MONO % 10 % (0-9); NEUT # 9.2 x10^3/uL (1.8-7.7); NEUT % 81 % (31-73); PLATELET COUNT 221 x10^3/uL (140-400); RED CELL DISTRIBUTION WIDTH 13.8 % (11.5-14.5); WHITE BLOOD COUNT 11.3 x10^3/uL (4.0-11.0)
[2020-02-08 06:57] LABS: CALCIUM 7.4 mg/dL (8.5-10.1); CREATININE 1.1 mg/dL (0.7-1.3); GFR 86.8; POTASSIUM 3.1 mmol/L (3.5-5.1)
[2020-02-08] MEDS: metFORMIN 500 MG TABLET PO SCH ×2 (07:47→16:50)
[2020-02-08] MEDS: PANTOPRAZOLE IV PUSH 40 MG VIAL. IVP SCH (08:08)
[2020-02-08] MEDS: ENOXAPARIN 40 MG/0.4 ML SYRINGE. SQ SCH ×2 (08:08→20:37)
[2020-02-08] MEDS: IV 1/2 NORMAL SALINE 1,000 ML IV SCH ×2 (08:16→16:49)
[2020-02-08 08:44] LABS: BASE EXCESS ABG -2 mmol/L (-3-3); HCO3 ABG 22 mmol/L (21-28); PCO2 ABG 34 mmHg (35-46); PO2 ABG 56 mmHg (75-108); SAT O2 ABG 88 % (92-99)
[2020-02-08 08:45] LABS: FIO2 ABG 80
[2020-02-08] MEDS: hydroCHLOROthiazide 25 MG TABLET PO SCH (09:00)
[2020-02-08] MEDS: METOPROLOL TART IMMED RELEASE 50 MG TABLET. PO SCH (09:00)
[2020-02-08] MEDS: VENLAFAXINE 75 MG TABLET. PO SCH ×2 (09:00→20:37)
[2020-02-08] MEDS: KETOTIFEN FUMARATE 0.025% OPHTH SOLUTION BOTTLE. OU SCH ×2 (09:00→20:37)
[2020-02-08] MEDS: ISOSORBIDE DINITRATE 10 MG TABLET. PO SCH ×3 (09:00→20:36)
[2020-02-08] MEDS: CHLORHEXIDINE 0.12% 15 ML MOUTHWASH. MM SCH (09:00)
[2020-02-08] MEDS: ASPIRIN 325 MG TABLET PO SCH (09:00)
[2020-02-08] MEDS: LISINOPRIL 20 MG TABLET PO SCH (09:00)
[2020-02-08] MEDS: DOCUSATE 100 MG/10 ML SOLUTION. PO SCH (09:00)
[2020-02-08] MEDS: ELECTROLYTE (ICU) PROTOCOL. MC SCH (09:00)
[2020-02-08] MEDS: SENNOSIDES/DOCUSATE 8.6/50MG TABLET. PO SCH ×2 (09:00→20:36)
--- NOTE | 2020-02-08 09:14 | RAD ---
EXAM: CHEST ONE VIEW. HISTORY: COVID-19, ventilated. COMPARISON: 02/07/2020. FINDINGS: A frontal view of the chest is obtained. An endotracheal tube has its tip 4.7 cm above the cynthia. A nasogastric tube has its tip in the stomach. A right internal jugular central venous catheter has its tip in the superior cavoatrial junction. Bilateral interstitial and airspace opacities are not clearly changed. There is no pneumothorax or clear pleural effusion. The heart is not enlarged. IMPRESSION: 1. Stable bilateral interstitial and airspace opacities. Electronically signed by: Tal Bauer MD (02/08/2020 9:12 AM) [id number]
[2020-02-08] MEDS: INSULIN GLARGINE SYRINGE. SQ SCH ×2 (09:35→20:38)
--- NOTE | 2020-02-08 09:55 | PDOC ---
PROGRESS NOTES History of Present Illness History of Present Illness VTE Prophylaxis Ordered VTE Prophylaxis Devices: No VTE Pharmacological Prophylaxi: Yes IMPRESSION Assessment/Plan Toxic and metabolic encephalopathy Sepsis with pulmonary focus most likely Suspect gram negative organism pneumonia POS COVID 19 infection DKA lactic acidosis secondary to a combination of metabolic and infectious process ongoing Acute renal failure, vasomotor etiology most likely Hypernatremia Severe dehydration History of essential hypertension History of CVA Diabetes mellitus type 2 insulin requiring Severe anion gap metabolic acidosis Plan: isolation admit to ICU VENT SUPPORT AC mode 100%FIO2/ 10 PEEP fluid resuscitation DKA protocol Broad spectrum antibiotics for pneumonic process POS COVID 19 infection follow BMP every 4 hours. supportive measures vent management, will consult pulmonology for assistance. further recommendations based on clinical course DVT prophylaxis: heparin cardiology consult cxr 02/06 worse I>>>O will give low dose lasix s/p convalescent plasma. s/p Tocilizumab 02/03 02/07 Suspect gram negative organism pneumonia worsening hypoxia AC mode 100%FIO2/ 9 PEEP Justicifation of Admission Dx: Justicifation of Admission Dx: Justifications for Admission: Justification of Admission Dx: Yes Sepsis: Altered Mental Status 37 MIN CC TIME Vitals Vitals Vital Signs Date Time Temp Pulse Resp B/P (MAP) Pulse Ox O2 Delivery O2 Flow Rate FiO2 02/08/20 09:10 87 24 179/67 (104) 99 Ventilator 02/08/20 08:00 98.0 98.0 02/07/20 15:24 15.0 Physical Exam Physical Exam SEDATED ON VENT LUNGS: Coarse breath sounds HEART: RRR, S1, S2 present. Peripheral pulses intact ABDOMEN: Soft, non distended. Positive bowel sounds. EXTREMITIES: Without any cyanosis. NEUROLOGIC: Sedated PSYCHIATRIC: uanble to obtain due to acute process . SKIN: No ulcerations General: Cooperative Extremities: No cyanosis Labs LABS Laboratory Tests Test 02/07/20 17:22 02/07/20 21:49 02/07/20 23:58 02/08/20 06:07 Glucose (Fingerstick) 174 mg/dL (70-99) 195 mg/dL (70-99) 197 mg/dL (70-99) 171 mg/dL (70-99) Test 02/08/20 06:15 02/08/20 07:40 White Blood Count 11.3 x10^3/uL (4.0-11.0) Red Blood Count 4.40 x10^6/uL (4.30-5.70) Hemoglobin 12.8 g/dL (13.0-17.5) Hematocrit 37.8 % (39.0-53.0) Mean Corpuscular Volume 86 fL (79-100) Mean Corpuscular Hemoglobin 29 pg (25-35) Mean Corpuscular Hemoglobin Concent 34 g/dL (31-37) Red Cell Distribution Width 13.8 % (11.5-14.5) Platelet Count 221 x10^3/uL (140-400) Neutrophils (%) (Auto) 81 % (31-73) Lymphocytes (%) (Auto) 8 % (24-48) Monocytes (%) (Auto) 10 % (0-9) Eosinophils (%) (Auto) 1 % (0-3) Basophils (%) (Auto) 0 % (0-3) Neutrophils # (Auto) 9.2 x10^3/uL (1.8-7.7) Lymphocytes # (Auto) 0.9 x10^3/uL (1.0-4.8) Monocytes # (Auto) 1.1 x10^3/uL (0.0-1.1) Eosinophils # (Auto) 0.1 x10^3/uL (0.0-0.7) Basophils # (Auto) 0.0 x10^3/uL (0.0-0.2) Sodium Level 138 mmol/L (136-145) Potassium Level 3.1 mmol/L (3.5-5.1) Chloride Level 103 mmol/L (98-107) Carbon Dioxide Level 25 mmol/L (21-32) Anion Gap 10 (6-14) Blood Urea Nitrogen 33 mg/dL (8-26) Creatinine 1.1 mg/dL (0.7-1.3) Estimated GFR (Cockcroft-Gault) 86.8 Glucose Level 203 mg/dL (70-99) Calcium Level 7.4 mg/dL (8.5-10.1) O2 Saturation 88 % (92-99) Arterial Blood pH 7.42 (7.35-7.45) Arterial Blood pCO2 at Patient Temp 34 mmHg (35-46) Arterial Blood pO2 at Patient Temp 56 mmHg (75-108) Arterial Blood HCO3 22 mmol/L (21-28) Arterial Blood Base Excess -2 mmol/L (-3-3) FiO2 80 Assessment and Plan Assessmemt and Plan Problems Medical Problems: (1) Acute metabolic encephalopathy Status: Acute (2) Acute renal insufficiency Status: Acute (3) DKA (diabetic ketoacidoses) Status: Acute (4) Pneumonia Status: Acute (5) Respiratory failure with hypoxia Status: Acute (6) Suspected 2019 novel coronavirus infection Status: Acute Comment Review of Relevant I have reviewed the following items myra (where applicable) has been applied. Labs Laboratory Tests Test 02/06/20 12:45 02/06/20 17:52 02/07/20 00:03 02/07/20 06:00 Glucose (Fingerstick) 220 mg/dL (70-99) 204 mg/dL (70-99) 224 mg/dL (70-99) White Blood Count 10.0 x10^3/uL (4.0-11.0) Red Blood Count 4.55 x10^6/uL (4.30-5.70) Hemoglobin 13.4 g/dL (13.0-17.5) Hematocrit 39.1 % (39.0-53.0) Mean Corpuscular Volume 86 fL (79-100) Mean Corpuscular Hemoglobin 30 pg (25-35) Mean Corpuscular Hemoglobin Concent 34 g/dL (31-37) Red Cell Distribution Width 14.2 % (11.5-14.5) Platelet Count 240 x10^3/uL (140-400) Neutrophils (%) (Auto) 85 % (31-73) Lymphocytes (%) (Auto) 7 % (24-48) Monocytes (%) (Auto) 7 % (0-9) Eosinophils (%) (Auto) 0 % (0-3) Basophils (%) (Auto) 1 % (0-3) Neutrophils # (Auto) 8.5 x10^3/uL (1.8-7.7) Lymphocytes # (Auto) 0.7 x10^3/uL (1.0-4.8) Monocytes # (Auto) 0.7 x10^3/uL (0.0-1.1) Eosinophils # (Auto) 0.0 x10^3/uL (0.0-0.7) Basophils # (Auto) 0.1 x10^3/uL (0.0-0.2) Test 02/07/20 06:12 02/07/20 08:33 02/07/20 09:06 02/07/20 17:22 Glucose (Fingerstick) 179 mg/dL (70-99) 175 mg/dL (70-99) 174 mg/dL (70-99) O2 Saturation 96 % (92-99) Arterial Blood pH 7.37 (7.35-7.45) Arterial Blood pCO2 at Patient Temp 33 mmHg (35-46) Arterial Blood pO2 at Patient Temp 89 mmHg (75-108) Arterial Blood HCO3 19 mmol/L (21-28) Arterial Blood Base Excess -6 mmol/L (-3-3) FiO2 100%+10 Test 02/07/20 21:49 02/07/20 23:58 02/08/20 06:07 02/08/20 06:15 Glucose (Fingerstick) 195 mg/dL (70-99) 197 mg/dL (70-99) 171 mg/dL (70-99) White Blood Count 11.3 x10^3/uL (4.0-11.0) Red Blood Count 4.40 x10^6/uL (4.30-5.70) Hemoglobin 12.8 g/dL (13.0-17.5) Hematocrit 37.8 % (39.0-53.0) Mean Corpuscular Volume 86 fL (79-100) Mean Corpuscular Hemoglobin 29 pg (25-35) Mean Corpuscular Hemoglobin Concent 34 g/dL (31-37) Red Cell Distribution Width 13.8 % (11.5-14.5) Platelet Count 221 x10^3/uL (140-400) Neutrophils (%) (Auto) 81 % (31-73) Lymphocytes (%) (Auto) 8 % (24-48) Monocytes (%) (Auto) 10 % (0-9) Eosinophils (%) (Auto) 1 % (0-3) Basophils (%) (Auto) 0 % (0-3) Neutrophils # (Auto) 9.2 x10^3/uL (1.8-7.7) Lymphocytes # (Auto) 0.9 x10^3/uL (1.0-4.8) Monocytes # (Auto) 1.1 x10^3/uL (0.0-1.1) Eosinophils # (Auto) 0.1 x10^3/uL (0.0-0.7) Basophils # (Auto) 0.0 x10^3/uL (0.0-0.2) Sodium Level 138 mmol/L (136-145) Potassium Level 3.1 mmol/L (3.5-5.1) Chloride Level 103 mmol/L (98-107) Carbon Dioxide Level 25 mmol/L (21-32) Anion Gap 10 (6-14) Blood Urea Nitrogen 33 mg/dL (8-26) Creatinine 1.1 mg/dL (0.7-1.3) Estimated GFR (Cockcroft-Gault) 86.8 Glucose Level 203 mg/dL (70-99) Calcium Level 7.4 mg/dL (8.5-10.1) Test 02/08/20 07:40 O2 Saturation 88 % (92-99) Arterial Blood pH 7.42 (7.35-7.45) Arterial Blood pCO2 at Patient Temp 34 mmHg (35-46) Arterial Blood pO2 at Patient Temp 56 mmHg (75-108) Arterial Blood HCO3 22 mmol/L (21-28) Arterial Blood Base Excess -2 mmol/L (-3-3) FiO2 80 Laboratory Tests Test 02/07/20 17:22 02/07/20 21:49 02/07/20 23:58 02/08/20 06:07 Glucose (Fingerstick) 174 mg/dL (70-99) 195 mg/dL (70-99) 197 mg/dL (70-99) 171 mg/dL (70-99) Test 02/08/20 06:15 02/08/20 07:40 White Blood Count 11.3 x10^3/uL (4.0-11.0) Red Blood Count 4.40 x10^6/uL (4.30-5.70) Hemoglobin 12.8 g/dL (13.0-17.5) Hematocrit 37.8 % (39.0-53.0) Mean Corpuscular Volume 86 fL (79-100) Mean Corpuscular Hemoglobin 29 pg (25-35) Mean Corpuscular Hemoglobin Concent 34 g/dL (31-37) Red Cell Distribution Width 13.8 % (11.5-14.5) Platelet Count 221 x10^3/uL (140-400) Neutrophils (%) (Auto) 81 % (31-73) Lymphocytes (%) (Auto) 8 % (24-48) Monocytes (%) (Auto) 10 % (0-9) Eosinophils (%) (Auto) 1 % (0-3) Basophils (%) (Auto) 0 % (0-3) Neutrophils # (Auto) 9.2 x10^3/uL (1.8-7.7) Lymphocytes # (Auto) 0.9 x10^3/uL (1.0-4.8) Monocytes # (Auto) 1.1 x10^3/uL (0.0-1.1) Eosinophils # (Auto) 0.1 x10^3/uL (0.0-0.7) Basophils # (Auto) 0.0 x10^3/uL (0.0-0.2) Sodium Level 138 mmol/L (136-145) Potassium Level 3.1 mmol/L (3.5-5.1) Chloride Level 103 mmol/L (98-107) Carbon Dioxide Level 25 mmol/L (21-32) Anion Gap 10 (6-14) Blood Urea Nitrogen 33 mg/dL (8-26) Creatinine 1.1 mg/dL (0.7-1.3) Estimated GFR (Cockcroft-Gault) 86.8 Glucose Level 203 mg/dL (70-99) Calcium Level 7.4 mg/dL (8.5-10.1) O2 Saturation 88 % (92-99) Arterial Blood pH 7.42 (7.35-7.45) Arterial Blood pCO2 at Patient Temp 34 mmHg (35-46) Arterial Blood pO2 at Patient Temp 56 mmHg (75-108) Arterial Blood HCO3 22 mmol/L (21-28) Arterial Blood Base Excess -2 mmol/L (-3-3) FiO2 80 Microbiology 02/02/20 Blood Culture - Final, Complete NO GROWTH AFTER 5 DAYS Medications Current Medications Sodium Chloride 1,000 ml @ 1,000 mls/hr 1X ONCE IV Last administered on at 16:48; Start 02/02/20 at 15:45; Stop 02/02/20 at 16:44; Status DC Etomidate (Amidate) 20 mg 1X ONCE IV Last administered on 02/02/20at 15:54; Start 02/02/20 at 15:45; Stop 02/02/20 at 15:52; Status DC Rocuronium [place] (Zemuron) 50 mg 1X ONCE IV Last administered on 02/02/20at 15:55; Start 02/02/20 at 15:45; Stop 02/02/20 at 15:52; Status DC Propofol 100 ml @ 0 mls/hr CONT PRN IV SEE PROTOCOL Last administered on 02/02/20at 16:33; Start 02/02/20 at 15:45; Stop 02/02/20 at 17:44; Status DC Chlorhexidine Gluconate (Peridex) 15 ml BID MM ; Start 02/02/20 at 21:00; Stop 02/02/20 at 17:39; Status DC Fentanyl Citrate (Fentanyl 2ml Vial) 100 mcg 1X ONCE IV Last administered on 02/02/20at 16:34; Start 02/02/20 at 16:15; Stop 02/02/20 at 16:16; Status DC Sodium Chloride 1,000 ml @ 1,000 mls/hr 1X ONCE IV Last administered on 02/02/20at 16:15; Start 02/02/20 at 16:15; Stop 02/02/20 at 17:20; Status DC Aspirin (Aspirin Rectal Supp) 300 mg 1X ONCE TN Last administered on 02/02/20at 16:35; Start 02/02/20 at 16:15; Stop 02/02/20 at 16:17; Status DC Acetaminophen (Tylenol) 650 mg PRN Q6HRS PRN PO Headaches, Temp > 101.5'; St art 02/02/20 at 16:15 Prochlorperazine Edisylate (Compazine) 5 mg PRN Q6HRS PRN IVP NAUSEA/VOMITING; Start 02/02/20 at 16:15 Prochlorperazine (Compazine) 25 mg PRN Q12HR PRN TN NAUSEA/VOMITING; Start 02/02/20 at 16:15 Info (Icu Electrolyte Protocol) 1 ea DAILY MC ; Start 02/03/20 at 09:00 Heparin Sodium (Porcine) (Heparin Sodium) 5,000 unit Q8HRS SQ Last administered on 02/04/20at 05:32; Start 02/02/20 at 22:00; Stop 02/04/20 at 14:45; Status DC Sodium Chloride (Normal Saline Flush) 3 ml QSHIFT PRN IV AFTER MEDS AND BLOOD DRAWS; Start 02/02/20 at 16:15 Oxycodone/ Acetaminophen (Percocet 5/325) 1 tab PRN Q4HRS PRN PO MILD PAIN, 1ST CHOICE; Start 02/02/20 at 16:15 Morphine Sulfate (Morphine Sulfate) 2 mg PRN Q1HR PRN IV PAIN; Start 02/02/20 at 16:15 Senna/Docusate Sodium (Senna Plus) 1 tab BID PO Last administered on 02/07/20at 21:21; Start 02/02/20 at 21:00 Docusate Sodium (Colace) 100 mg BID PO ; Start 02/02/20 at 21:00; Stop 02/04/20 at 19:30; Status DC Lactulose (Lactulose) 20 gm PRN Q12HR PRN PO CONSTIPATION; Start 02/02/20 at 16:15 Amlodipine Besylate (Norvasc) 10 mg HS PO Last administered on 02/07/20at 21:21; Start 02/02/20 at 21:00 Aspirin (Grover Aspirin) 325 mg DAILY PO Last administered on 02/07/20at 08:43; Start 02/03/20 at 09:00 Atorvastatin Calcium (Lipitor) 20 mg QHS PO Last administered on 02/07/20at 21:21; Start 02/02/20 at 21:00 Acetaminophen/ Butalbital/ Caffeine (Fioricet) 1 tab PRN Q6HRS PRN PO MIGRAINE HEADACHE- 1ST CHOICE; Start 02/02/20 at 16:15 Hydrochlorothiazide (Hydrodiuril) 25 mg DAILY PO Last administered on 02/07/20at 08:50; Start 02/03/20 at 09:00 Isosorbide Dinitrate (Isordil) 10 mg TID PO Last administered on 02/07/20at 21:20; Start 02/02/20 at 21:00 Lisinopril (Prinivil) 40 mg DAILY PO Last administered on 02/06/20at 08:14; Start 02/03/20 at 09:00 Metoprolol Tartrate (Lopressor) 50 mg BID PO Last administered on 02/07/20at 21:21; Start 02/02/20 at 21:00 Non-Formulary Medication (Hydrochlorothiazide (Hydrochlorothiazide Tablet)) 25 mg DAILY PO ; Start 02/03/20 at 09:00; Status UNV Non-Formulary Medication (Insulin Aspart (Novolog)) 25 unit TIDWMEALS SQ ; Start 02/02/20 at 17:00; Status UNV Non-Formulary Medication (Insulin Glargine,Hum.rec.anlog (Lantus Solostar)) 80 unit QHS SQ ; Start 02/02/20 at 21:00; Status UNV Non-Formulary Medication (Isosorbide Dinitrate ) 20 mg DAILY PO ; Start 02/03/20 at 09:00; Status UNV Meclizine HCl (Antivert) 25 mg PRN Q6HRS PRN PO NAUSEA- 2ND CHOICE; Start 02/02/20 at 17:45 Metformin HCl (Glucophage) 1,000 mg BIDWMEALS PO Last administered on 02/07/20at 17:00; Start 02/02/20 at 17:00 Ketotifen Fumarate (Zaditor) 1 drop BID OU Last administered on 02/07/20at 21:00; Start 02/02/20 at 21:00 Pantoprazole Sodium (PROTONIX VIAL for IV PUSH) 40 mg DAILYAC IVP Last administered on 02/08/20at 08:08; Start 02/03/20 at 07:30 Ondansetron HCl (Zofran Odt) 4 mg PRN Q8HRS PRN PO NAUSEA/VOMITING, 1ST CHOICE PO; Start 02/02/20 at 17:45 Sumatriptan Succinate (Imitrex) 50 mg PRN BID PRN PO MIGRAINE HEADACHE; Start 02/02/20 at 17:45 Non-Formulary Medication (Terazosin Hcl ) 2 cap QHS PO ; Start 02/02/20 at 21:00; Status UNV Venlafaxine HCl (Effexor) 150 mg BID PO Last administered on 02/07/20at 21:21; Start 02/02/20 at 21:00 Fentanyl Citrate 30 ml @ 0 mls/hr CONT PRN IV SEE PROTOCOL Last administered on 02/06/20at 05:48; Start 02/02/20 at 16:30; Stop 02/06/20 at 10:59; Status DC Propofol 100 ml @ 0 mls/hr CONT PRN IV SEE PROTOCOL Last administered on 02/08/20at 05:53; Start 02/02/20 at 16:30 Fentanyl Citrate (Fentanyl 2ml Vial) 25 mcg PRN Q1HR PRN IV SEE COMMENTS; Start 02/02/20 at 16:30 Fentanyl Citrate (Fentanyl 2ml Vial) 50 mcg PRN Q1HR PRN IV SEE COMMENTS; Start 02/02/20 at 16:30 Chlorhexidine Gluconate (Peridex) 15 ml BID MM Last administered on 02/07/20at 21:20; Start 02/02/20 at 21:00 Morphine Sulfate (Morphine Sulfate) 2 mg PRN Q1HR PRN IV SEE COMMENTS.; Start 02/02/20 at 16:30 Morphine Sulfate (Morphine Sulfate) 4 mg PRN Q1HR PRN IV SEE COMMENTS.; Start 02/02/20 at 16:30 Midazolam HCl (Versed) 1 mg PRN Q30MIN PRN IV SEE COMMENTS.; Start 02/02/20 at 16:30 Piperacillin Sod/ Tazobactam Sod 4.5 gm/Sodium Chloride 100 ml @ 200 mls/hr 1X ONCE IV Last administered on 02/02/20at 17:03; Start 02/02/20 at 16:30; Stop 02/02/20 at 16:59; Status DC Azithromycin 250 ml @ 250 mls/hr 1X ONCE IV Last administered on 02/02/20at 17:40; Start 02/02/20 at 16:30; Stop 02/02/20 at 17:34; Status DC Dexamethasone Sodium Phosphate (Decadron) 10 mg 1X ONCE IVP Last administered on 02/02/20at 16:54; Start 02/02/20 at 16:30; Stop 02/02/20 at 16:33; Status DC Midazolam HCl (Versed) 5 mg 1X ONCE IV Last administered on 02/02/20at 16:35; Start 02/02/20 at 16:45; Stop 02/02/20 at 16:46; Status DC Insulin Human Regular (HumuLIN R VIAL) 8 unit 1X ONCE SQ Last administered on 02/02/20at 16:51; Start 02/02/20 at 16:45; Stop 02/02/20 at 16:46; Status DC Sodium Chloride 1,000 ml @ 500 mls/hr Q2H IV Last administered on 02/02/20at 18:33; Start 02/02/20 at 16:36; Stop 02/02/20 at 18:35; Status DC Insulin Human Regular 100 unit/ Sodium Chloride 101 ml @ 0 mls/hr CONT PRN PRN IV PER PROTOCOL Last administered on 02/03/20at 02:08; Start 02/02/20 at 16:45; Stop 02/03/20 at 02:31; Status DC Insulin Human Regular 100 ml @ As Directed STK-MED ONCE IV ; Start 02/02/20 at 16:41; Stop 02/02/20 at 16:41; Status DC Etomidate (Amidate) 20 mg 1X ONCE IV ; Start 02/02/20 at 17:15; Stop 02/02/20 at 17:22; Status DC Rocuronium [place] (Zemuron) 50 mg 1X ONCE IV ; Start 02/02/20 at 17:15; Stop 02/02/20 at 17:34; Status DC Piperacillin Sod/ Tazobactam Sod 3.375 gm/Sodium Chloride 50 ml @ 100 mls/hr Q6HRS IV Last administered on 02/08/20at 05:53; Start 02/03/20 at 00:00 Sodium Chloride 1,000 ml @ 250 mls/hr Q4H IV Last administered on 02/02/20at 18:43; Start 02/02/20 at 18:45; Stop 02/02/20 at 22:40; Status DC Pantoprazole Sodium (PROTONIX VIAL for IV PUSH) 40 mg 1X ONCE IVP Last administered on 02/02/20at 22:47; Start 02/02/20 at 20:15; Stop 02/02/20 at 20:40; Status DC Labetalol HCl (Normodyne Iv Push) 10 mg PRN Q4HRS PRN IVP HYPERTENSION Last administered on 02/04/20at 05:20; Start 02/02/20 at 20:15 Dextrose/Sodium Chloride 1,000 ml @ 250 mls/hr Q4H IV Last administered on 02/03/20at 07:59; Start 02/02/20 at 22:45; Stop 02/03/20 at 11:23; Status DC Insulin Human Regular 100 unit/ Sodium Chloride 101 ml @ 0 mls/hr CONT PRN IV SEE I/O RECORD; Start 02/03/20 at 02:15 Potassium Chloride/Water 100 ml @ 100 mls/hr PRN Q1HR PRN IV SEE COMMENTS; Start 02/03/20 at 05:00 Potassium Chloride/Water 100 ml @ 100 mls/hr Q1H IV Last administered on 02/03/20at 07:58; Start 02/03/20 at 05:00; Stop 02/03/20 at 08:59; Status DC Insulin Glargine (Lantus Syringe) 18 unit BID SQ Last administered on 02/08/20at 09:35; Start 02/03/20 at 09:00 Insulin Human Lispro (HumaLOG) 0-9 UNITS Q6HRS SQ Last administered on 02/07/20at 06:13; Start 02/03/20 at 12:00 Dextrose (Dextrose 50%-Water Syringe) 12.5 gm PRN Q15MIN PRN IV SEE COMMENTS; Start 02/03/20 at 06:15 Sodium Chloride 1,000 ml @ 125 mls/hr 1X ONCE IV Last administered on 02/03/20at 12:01; Start 02/03/20 at 11:30; Stop 02/03/20 at 19:29; Status DC Vecuronium [place] (Norcuron Bolus) 10 mg PRN Q6HRS PRN IV SEDATION Last administered on 02/04/20at 12:09; Start 02/04/20 at 07:30; Stop 02/04/20 at 19:30; Status DC Potassium Chloride/Water 100 ml @ 100 mls/hr 1X ONCE IV Last administered on 02/04/20at 10:04; Start 02/04/20 at 10:00; Stop 02/04/20 at 10:59; Status DC Tocilizumab 400 mg/Sodium Chloride 100 ml @ 100 mls/hr 1X ONCE IV Last administered on 02/04/20at 14:53; Start 02/04/20 at 13:00; Stop 02/04/20 at 13:59; Status DC Enoxaparin Sodium (Lovenox 40mg Syringe) 40 mg BID SQ Last administered on 02/08/20at 08:08; Start 02/04/20 at 21:00 Sodium Chloride 1,000 ml @ 125 mls/hr Q8H IV Last administered on 02/08/20 08:16; Start 02/04/20 at 16:00 Vecuronium [place] (Norcuron Bolus) 10 mg PRN Q1HR PRN IV SEDATION Last administered on 02/05/20at 14:04; Start 02/04/20 at 19:30 Docusate Sodium (Colace Solution) 100 mg DAILY PO Last administered on 02/07/20at 08:50; Start 02/05/20 at 09:00 Norepinephrine Bitartrate 8 mg/ Dextrose 258 ml @ 15.519 mls/ hr CONT PRN IV PER PROTOCOL Last administered on 02/07/20at 02:51; Start 02/04/20 at 22:30 Potassium Bicarbonate (Potassium Effervescent Tablet) 40 meq 1X ONCE PO Last administered on 02/05/20at 08:26; Start 02/05/20 at 07:45; Stop 02/05/20 at 07:46; Status DC Midazolam HCl 100 mg/Sodium Chloride 100 ml @ 1 mls/hr CONT PRN IV . Last administered on 02/07/20at 16:20; Start 02/05/20 at 10:00 Methylprednisolone Sodium Succinate (SOLU-Medrol 40MG VIAL) 40 mg Q8HRS IV Last administered on 02/08/20at 05:53; Start 02/05/20 at 14:00 Hydralazine HCl (Apresoline Inj) 10 mg PRN Q4HRS PRN IVP ELEVATED BP, SEE COMMENTS Last administered on 02/08/20at 08:17; Start 02/05/20 at 17:00 Fentanyl Citrate 55 ml @ 1.98 mls/hr CONT PRN IV SEE PROTOCOL Last administered on 02/07/20at 14:54; Start 02/06/20 at 11:00 Furosemide (Lasix) 20 mg 1X ONCE IVP Last administered on 02/06/20at 14:08; Start 02/06/20 at 14:00; Stop 02/06/20 at 14:01; Status DC Phenylephrine HCl 50 mg/Sodium Chloride 255 ml @ 13.372 mls/ hr CONT PRN IV SEE I/O RECORD Last administered on 02/07/20at 05:51; Start 02/07/20 at 05:45 Furosemide (Lasix) 20 mg 1X ONCE IVP Last administered on 02/07/20at 13:12; Start 02/07/20 at 13:15; Stop 02/07/20 at 13:16; Status DC Active Scripts Active Aspirin 325 Mg Tablet 325 Mg PO DAILY Vgtbdv-Gusebudw-Axes 50-325-40 (Butalb/Acetaminophen/Caffeine) 1 Each Tablet 1-2 Tab PO PRN Q4HRS PRN MDD 6 tablets 2 Days Ondansetron Odt (Ondansetron) 4 Mg Tab.rapdis 1 Tab PO PRN Q6-8HRS PRN Rynnxl-Ckffmqbi-Bblk 50-325-40 (Butalb/Acetaminophen/Caffeine) 1 Each Tablet 1 Each PO Q6HRS PRN Reported Venlafaxine Hcl Er (Venlafaxine Hcl) 150 Mg Tab.er.24 1 Tab PO BID Novolog (Insulin Aspart) 100 Unit/1 Ml Cartridge 25 Unit SQ TIDWMEALS Metformin Hcl 1,000 Mg Tablet 1,000 Mg PO BIDWMEALS Zofran (Ondansetron Hcl) 4 Mg Tablet 1 Tab PO Q6HRS Terazosin Hcl 2 Mg Capsule 2 Cap PO QHS Lantus Solostar (Insulin Glargine,Hum.rec.anlog) 100 Unit/1 Ml Insuln.pen 80 Unit SQ QHS Metoprolol Tartrate 50 Mg Tablet 1 Tab PO BID Omeprazole 20 Mg Capsule.dr 20 Mg PO BID Lisinopril 40 Mg Tablet 1 Tab PO DAILY Imitrex (Sumatriptan Succinate) 50 Mg Tablet 50 Mg PO PRN BID PRN Hydrochlorothiazide Tablet (Hydrochlorothiazide) 12.5 Mg Tablet 25 Mg PO DAILY Meclizine Hcl 25 Mg Tablet 25 Mg PO PRN TID PRN 90 Days Patanol (Olopatadine Hcl) 5 Ml Drops 1 Drop EACHEYE BID Atorvastatin Calcium 20 Mg Tablet 1 Tab PO DAILY Isosorbide Mononitrate 20 Mg Tablet 20 Mg PO BID Amlodipine Besylate 10 Mg Tablet 10 Mg PO HS Isosorbide Dinitrate 30 Mg Tablet 20 Mg PO DAILY Hydrochlorothiazide Tablet (Hydrochlorothiazide) 25 Mg Tablet 25 Mg PO DAILY Vitals/I & O Vital Sign - Last 24 Hours 02/07/20 02/07/20 02/07/20 02/07/20 10:00 11:00 11:31 12:00 Temp 97.8 97.8 Pulse 79 71 67 Resp 24 24 24 B/P (MAP) 115/57 (76) 109/58 (75) 128/65 (86) Pulse Ox 100 100 100 100 O2 Delivery Ventilator Ventilator Ventilator Ventilator 02/07/20 02/07/20 02/07/20 02/07/20 12:00 13:00 14:00 14:20 Pulse 67 64 64 Resp 24 24 B/P (MAP) 112/74 (87) 114/78 (90) 114/78 Pulse Ox 100 100 O2 Delivery Mechanical Ventilator Ventilator Ventilator 02/07/20 02/07/20 02/07/20 02/07/20 14:54 15:00 15:15 15:24 Pulse 64 Resp 24 B/P (MAP) 114/64 (81) Pulse Ox 100 100 100 100 O2 Delivery Ventilator Ventilator O2 Flow Rate 15.0 15.0 02/07/20 02/07/20 02/07/20 02/07/20 16:00 16:00 17:00 18:00 Temp 97.8 97.8 Pulse 64 64 65 Resp 24 24 24 B/P (MAP) 144/68 (93) 150/68 (95) 118/54 (75) Pulse Ox 100 100 100 O2 Delivery Ventilator Mechanical Ventilator Ventilator Ventilator 02/07/20 02/07/20 02/07/20 02/07/20 19:00 20:00 20:00 20:00 Temp 98.5 98.5 Pulse 64 62 62 Resp 24 24 B/P (MAP) 127/60 (82) 120/58 (78) 120/58 (78) Pulse Ox 100 100 O2 Delivery Ventilator Mechanical Ventilator Ventilator 02/07/20 02/07/20 02/07/20 02/07/20 20:37 21:00 21:20 21:21 Pulse 60 61 61 Resp 24 B/P (MAP) 146/66 (92) 141/65 142/66 Pulse Ox 100 100 O2 Delivery Ventilator Ventilator 02/07/20 02/07/20 02/07/20 02/07/20 21:21 22:00 23:00 23:30 Pulse 61 60 60 Resp 24 24 B/P (MAP) 141/65 140/62 (88) 144/64 (90) Pulse Ox 100 100 O2 Delivery Ventilator Ventilator Mechanical Ventilator 02/08/20 02/08/20 02/08/20 02/08/20 00:00 00:00 01:00 02:00 Temp 97.7 97.7 Pulse 62 62 61 58 Resp 24 24 24 B/P (MAP) 160/66 (97) 160/66 (97) 120/53 (75) 171/74 (106) Pulse Ox 100 99 100 O2 Delivery Ventilator Ventilator Ventilator 02/08/20 02/08/20 02/08/20 02/08/20 02:17 03:00 03:58 04:00 Pulse 58 Resp 24 B/P (MAP) 170/74 (106) Pulse Ox 100 100 100 O2 Delivery Ventilator Ventilator Ventilator Mechanical Ventilator 02/08/20 02/08/20 02/08/20 02/08/20 04:00 04:00 05:00 05:16 Temp 98.6 98.6 Pulse 60 60 60 60 Resp 24 24 B/P (MAP) 170/72 (104) 170/72 (104) 174/72 (106) 179/76 Pulse Ox 100 100 O2 Delivery Ventilator Ventilator 02/08/20 02/08/20 02/08/20 02/08/20 06:00 07:25 07:40 08:00 Pulse 68 74 72 Resp 24 24 B/P (MAP) 158/62 (94) 181/72 (108) 182/72 (108) Pulse Ox 100 97 99 O2 Delivery Ventilator Ventilator Ventilator 02/08/20 02/08/20 02/08/20 02/08/20 08:00 08:00 08:17 09:10 Temp 98.0 98.0 Pulse 70 74 87 Resp 24 24 B/P (MAP) 182/72 (108) 181/72 179/67 (104) Pulse Ox 96 99 O2 Delivery Ventilator Mechanical Ventilator Ventilator Intake and Output 02/07/20 02/07/20 02/08/20 15:00 23:00 07:00 Intake Total 2384 ml 1809 ml Output Total 690 ml 1095 ml 680 ml Balance -690 ml 1289 ml 1129 ml RENU TAI MD Feb 08, 2020 09:55
--- NOTE | 2020-02-08 10:19 | PDOC2 ---
CARDIAC CONSULT DATE OF CONSULT Date of Consult DATE: 02/08/20 TIME: 10:08 REASON FOR CONSULT Reason for Consult: cardiogenic shock REFERRING PHYSICIAN Referring Physician: Dr. Fox SOURCE Source: Chart review HISTORY OF PRESENT ILLNESS HISTORY OF PRESENT ILLNESS This is a 49 yo female, who initially present secondary to altered mental status. Noted in DKA upon arrival. Intubated due to respiratory failure. COVID +. Blood pressure significantly elevated this am. Cardene gtt to be initiated. HPI obtained from chart review as patient is intubated/sedated. PAST MEDICAL HISTORY Cardiovascular: HTN, Hyperlipidemia CENTRAL NERVOUS SYSTEM: CVA, Seizure GI: GERD Psych: Depression Endocrine: Diabetes PAST SURGICAL HISTORY Past Surgical History: No pertinent history FAMILY HISTORY Family History: Family History Unknown SOCIAL HISTORY ALCOHOL: none Drugs: None Lives: with Family CURRENT MEDICATIONS CURRENT MEDICATIONS Current Medications Medications (Trade) Dose Ordered Sig/Rick Route PRN Reason Start Time Stop Time Status Last Admin Dose Admin Furosemide (Lasix) 20 mg 1X ONCE IVP 02/07/20 13:15 02/07/20 13:16 DC 02/07/20 13:12 ALLERGIES ALLERGIES: Coded Allergies: No Known Drug Allergies (Unverified , 12/18/13) ROS Review of System unobtainable PHYSICAL EXAM General: Other (sedated ) HEENT: Atraumatic, Mucous membr. moist/pink Lungs: Other (mechanical ventilation) Extremities: No edema Skin: No significant lesion Neuro: Other (sedated) MUSCULOSKELETAL: Osteoarthritic changes both hands VITALS/I&O VITALS/I&O: Vital Signs Date Time Temp Pulse Resp B/P (MAP) Pulse Ox O2 Delivery O2 Flow Rate FiO2 02/08/20 10:02 89 24 198/77 (117) 100 Ventilator 02/08/20 08:00 98.0 98.0 02/07/20 15:24 15.0 I & O 02/07/20 02/07/20 02/08/20 14:59 22:59 06:59 Intake Total 2384 ml 1809 ml Output Total 690 ml 1010 ml 765 ml Balance -690 ml 1374 ml 1044 ml LABS Lab: Laboratory Tests Test 02/07/20 17:22 02/07/20 21:49 02/07/20 23:58 02/08/20 06:07 Glucose (Fingerstick) 174 mg/dL (70-99) H 195 mg/dL (70-99) H 197 mg/dL (70-99) H 171 mg/dL (70-99) H Test 02/08/20 06:15 02/08/20 07:40 White Blood Count 11.3 x10^3/uL (4.0-11.0) H Red Blood Count 4.40 x10^6/uL (4.30-5.70) Hemoglobin 12.8 g/dL (13.0-17.5) L Hematocrit 37.8 % (39.0-53.0) L Mean Corpuscular Volume 86 fL (79-100) Mean Corpuscular Hemoglobin 29 pg (25-35) Mean Corpuscular Hemoglobin Concent 34 g/dL (31-37) Red Cell Distribution Width 13.8 % (11.5-14.5) Platelet Count 221 x10^3/uL (140-400) Neutrophils (%) (Auto) 81 % (31-73) H Lymphocytes (%) (Auto) 8 % (24-48) L Monocytes (%) (Auto) 10 % (0-9) H Eosinophils (%) (Auto) 1 % (0-3) Basophils (%) (Auto) 0 % (0-3) Neutrophils # (Auto) 9.2 x10^3/uL (1.8-7.7) H Lymphocytes # (Auto) 0.9 x10^3/uL (1.0-4.8) L Monocytes # (Auto) 1.1 x10^3/uL (0.0-1.1) Eosinophils # (Auto) 0.1 x10^3/uL (0.0-0.7) Basophils # (Auto) 0.0 x10^3/uL (0.0-0.2) Sodium Level 138 mmol/L (136-145) Potassium Level 3.1 mmol/L (3.5-5.1) L Chloride Level 103 mmol/L (98-107) Carbon Dioxide Level 25 mmol/L (21-32) Anion Gap 10 (6-14) Blood Urea Nitrogen 33 mg/dL (8-26) H Creatinine 1.1 mg/dL (0.7-1.3) Estimated GFR (Cockcroft-Gault) 86.8 Glucose Level 203 mg/dL (70-99) H Calcium Level 7.4 mg/dL (8.5-10.1) L O2 Saturation 88 % (92-99) L Arterial Blood pH 7.42 (7.35-7.45) Arterial Blood pCO2 at Patient Temp 34 mmHg (35-46) L Arterial Blood pO2 at Patient Temp 56 mmHg (75-108) L Arterial Blood HCO3 22 mmol/L (21-28) Arterial Blood Base Excess -2 mmol/L (-3-3) FiO2 80 Laboratory Tests 02/08/20 06:15 Laboratory Tests 02/08/20 06:15 ECHOCARDIOGRAM ECHOCARDIOGRAM <Conclusion> The left ventricular systolic function is normal and the ejection fraction is within normal range. The Ejection Fraction is >55%. There is normal LV segmental wall motion. Doppler and Color Flow revealed mild aortic regurgitation. No right to left shunt on this study. DATE: 03/19/19 0954 ASSESSMENT/PLAN ASSESSMENT/PLAN 1. Acute respiratory failure secondary to COVID PNA, ARDS. S/p intubation 2. Metabolic encephalopathy 3. Leukocytosis, lactic acidosis, sepsis 4. CHRISTIANNE; resolved 5. Hypertensive urgency; remains elevated 6. Hyperlipidemia 7. Diabetes, II. DKA. gap closed. BS better controlled 8. Hypokalemia 9. Prior CVA 10. H/o seizures Recommendations Cardene gtt for BP control Ongoing treatment of COVID PNA, ARDS as per LASHAWN jean Secondary prevention as able Outpatient echo when recovered from COVID Supportive care from a CV standpoint. SADAF GARCÍA APRN Feb 08, 2020 10:18
[2020-02-08] MEDS: MIDAZOLAM HCL 100 MG in IV NORMAL SALINE 100ML 100 ML IV PRN (10:26)
--- NOTE | 2020-02-08 10:38 | PDOC ---
PULMONARY PROGRESS NOTES Subjective on vent sedated, versed fentanyl, samll ett secretion, on dinesh AC mode 80%FIO2/ 10 PEEP increase BP Vitals Vital Signs Date Time Temp Pulse Resp B/P (MAP) Pulse Ox O2 Delivery O2 Flow Rate FiO2 02/08/20 10:02 89 24 198/77 (117) 100 Ventilator 02/08/20 08:00 98.0 98.0 02/07/20 15:24 15.0 Comments ros unable to obtain sedated on vent visual exam done due to COVID pandemia nc at appears comfortable no paradoxical abd motion ekg nsr no rash AC mode, no soa sedated/no edema Labs Laboratory Tests Test 02/06/20 12:45 02/06/20 17:52 02/07/20 00:03 02/07/20 06:00 Glucose (Fingerstick) 220 mg/dL (70-99) 204 mg/dL (70-99) 224 mg/dL (70-99) White Blood Count 10.0 x10^3/uL (4.0-11.0) Red Blood Count 4.55 x10^6/uL (4.30-5.70) Hemoglobin 13.4 g/dL (13.0-17.5) Hematocrit 39.1 % (39.0-53.0) Mean Corpuscular Volume 86 fL (79-100) Mean Corpuscular Hemoglobin 30 pg (25-35) Mean Corpuscular Hemoglobin Concent 34 g/dL (31-37) Red Cell Distribution Width 14.2 % (11.5-14.5) Platelet Count 240 x10^3/uL (140-400) Neutrophils (%) (Auto) 85 % (31-73) Lymphocytes (%) (Auto) 7 % (24-48) Monocytes (%) (Auto) 7 % (0-9) Eosinophils (%) (Auto) 0 % (0-3) Basophils (%) (Auto) 1 % (0-3) Neutrophils # (Auto) 8.5 x10^3/uL (1.8-7.7) Lymphocytes # (Auto) 0.7 x10^3/uL (1.0-4.8) Monocytes # (Auto) 0.7 x10^3/uL (0.0-1.1) Eosinophils # (Auto) 0.0 x10^3/uL (0.0-0.7) Basophils # (Auto) 0.1 x10^3/uL (0.0-0.2) Test 02/07/20 06:12 02/07/20 08:33 02/07/20 09:06 02/07/20 17:22 Glucose (Fingerstick) 179 mg/dL (70-99) 175 mg/dL (70-99) 174 mg/dL (70-99) O2 Saturation 96 % (92-99) Arterial Blood pH 7.37 (7.35-7.45) Arterial Blood pCO2 at Patient Temp 33 mmHg (35-46) Arterial Blood pO2 at Patient Temp 89 mmHg (75-108) Arterial Blood HCO3 19 mmol/L (21-28) Arterial Blood Base Excess -6 mmol/L (-3-3) FiO2 100%+10 Test 02/07/20 21:49 02/07/20 23:58 02/08/20 06:07 02/08/20 06:15 Glucose (Fingerstick) 195 mg/dL (70-99) 197 mg/dL (70-99) 171 mg/dL (70-99) White Blood Count 11.3 x10^3/uL (4.0-11.0) Red Blood Count 4.40 x10^6/uL (4.30-5.70) Hemoglobin 12.8 g/dL (13.0-17.5) Hematocrit 37.8 % (39.0-53.0) Mean Corpuscular Volume 86 fL (79-100) Mean Corpuscular Hemoglobin 29 pg (25-35) Mean Corpuscular Hemoglobin Concent 34 g/dL (31-37) Red Cell Distribution Width 13.8 % (11.5-14.5) Platelet Count 221 x10^3/uL (140-400) Neutrophils (%) (Auto) 81 % (31-73) Lymphocytes (%) (Auto) 8 % (24-48) Monocytes (%) (Auto) 10 % (0-9) Eosinophils (%) (Auto) 1 % (0-3) Basophils (%) (Auto) 0 % (0-3) Neutrophils # (Auto) 9.2 x10^3/uL (1.8-7.7) Lymphocytes # (Auto) 0.9 x10^3/uL (1.0-4.8) Monocytes # (Auto) 1.1 x10^3/uL (0.0-1.1) Eosinophils # (Auto) 0.1 x10^3/uL (0.0-0.7) Basophils # (Auto) 0.0 x10^3/uL (0.0-0.2) Sodium Level 138 mmol/L (136-145) Potassium Level 3.1 mmol/L (3.5-5.1) Chloride Level 103 mmol/L (98-107) Carbon Dioxide Level 25 mmol/L (21-32) Anion Gap 10 (6-14) Blood Urea Nitrogen 33 mg/dL (8-26) Creatinine 1.1 mg/dL (0.7-1.3) Estimated GFR (Cockcroft-Gault) 86.8 Glucose Level 203 mg/dL (70-99) Calcium Level 7.4 mg/dL (8.5-10.1) Test 02/08/20 07:40 O2 Saturation 88 % (92-99) Arterial Blood pH 7.42 (7.35-7.45) Arterial Blood pCO2 at Patient Temp 34 mmHg (35-46) Arterial Blood pO2 at Patient Temp 56 mmHg (75-108) Arterial Blood HCO3 22 mmol/L (21-28) Arterial Blood Base Excess -2 mmol/L (-3-3) FiO2 80 Laboratory Tests Test 02/07/20 17:22 02/07/20 21:49 02/07/20 23:58 02/08/20 06:07 Glucose (Fingerstick) 174 mg/dL (70-99) 195 mg/dL (70-99) 197 mg/dL (70-99) 171 mg/dL (70-99) Test 02/08/20 06:15 02/08/20 07:40 White Blood Count 11.3 x10^3/uL (4.0-11.0) Red Blood Count 4.40 x10^6/uL (4.30-5.70) Hemoglobin 12.8 g/dL (13.0-17.5) Hematocrit 37.8 % (39.0-53.0) Mean Corpuscular Volume 86 fL (79-100) Mean Corpuscular Hemoglobin 29 pg (25-35) Mean Corpuscular Hemoglobin Concent 34 g/dL (31-37) Red Cell Distribution Width 13.8 % (11.5-14.5) Platelet Count 221 x10^3/uL (140-400) Neutrophils (%) (Auto) 81 % (31-73) Lymphocytes (%) (Auto) 8 % (24-48) Monocytes (%) (Auto) 10 % (0-9) Eosinophils (%) (Auto) 1 % (0-3) Basophils (%) (Auto) 0 % (0-3) Neutrophils # (Auto) 9.2 x10^3/uL (1.8-7.7) Lymphocytes # (Auto) 0.9 x10^3/uL (1.0-4.8) Monocytes # (Auto) 1.1 x10^3/uL (0.0-1.1) Eosinophils # (Auto) 0.1 x10^3/uL (0.0-0.7) Basophils # (Auto) 0.0 x10^3/uL (0.0-0.2) Sodium Level 138 mmol/L (136-145) Potassium Level 3.1 mmol/L (3.5-5.1) Chloride Level 103 mmol/L (98-107) Carbon Dioxide Level 25 mmol/L (21-32) Anion Gap 10 (6-14) Blood Urea Nitrogen 33 mg/dL (8-26) Creatinine 1.1 mg/dL (0.7-1.3) Estimated GFR (Cockcroft-Gault) 86.8 Glucose Level 203 mg/dL (70-99) Calcium Level 7.4 mg/dL (8.5-10.1) O2 Saturation 88 % (92-99) Arterial Blood pH 7.42 (7.35-7.45) Arterial Blood pCO2 at Patient Temp 34 mmHg (35-46) Arterial Blood pO2 at Patient Temp 56 mmHg (75-108) Arterial Blood HCO3 22 mmol/L (21-28) Arterial Blood Base Excess -2 mmol/L (-3-3) FiO2 80 Medications Active Scripts Medications Dose Route/Sig Max Daily Dose Days Date Category Aspirin 325 Mg Tablet 325 Mg PO DAILY 03/20/19 Rx Venlafaxine Hcl Er (Venlafaxine Hcl) 150 Mg Tab.er.24 1 Tab PO BID 03/18/19 Reported Novolog (Insulin Aspart) 100 Unit/1 Ml Cartridge 25 Unit SQ TIDWMEALS 03/18/19 Reported Metformin Hcl 1,000 Mg Tablet 1,000 Mg PO BIDWMEALS 03/18/19 Reported Zofran (Ondansetron Hcl) 4 Mg Tablet 1 Tab PO Q6HRS 03/18/19 Reported Terazosin Hcl 2 Mg Capsule 2 Cap PO QHS 03/18/19 Reported Lantus Solostar (Insulin Glargine,Hum.rec.anlog) 100 Unit/1 Ml Insuln.pen 80 Unit SQ QHS 03/18/19 Reported Metoprolol Tartrate 50 Mg Tablet 1 Tab PO BID 03/18/19 Reported Omeprazole 20 Mg Capsule.dr 20 Mg PO BID 03/18/19 Reported Lisinopril 40 Mg Tablet 1 Tab PO DAILY 03/18/19 Reported Hrmfqf-Daamqvfb-Ykbw 50-325-40 (Butalb/Acetaminophen/Caffeine) 1 Each Tablet 1-2 Tab PO PRN Q4HRS PRN MDD 6 tablets 2 07/30/18 Rx Imitrex (Sumatriptan Succinate) 50 Mg Tablet 50 Mg PO PRN BID PRN 01/15/15 Reported Hydrochlorothiazide Tablet (Hydrochlorothiazide) 12.5 Mg Tablet 25 Mg PO DAILY 01/15/15 Reported Meclizine Hcl 25 Mg Tablet 25 Mg PO PRN TID PRN 90 01/15/15 Reported Patanol (Olopatadine Hcl) 5 Ml Drops 1 Drop EACHEYE BID 01/11/15 Reported Atorvastatin Calcium 20 Mg Tablet 1 Tab PO DAILY 01/11/15 Reported Isosorbide Mononitrate 20 Mg Tablet 20 Mg PO BID 08/22/13 Reported Amlodipine Besylate 10 Mg Tablet 10 Mg PO HS 08/22/13 Reported Isosorbide Dinitrate 30 Mg Tablet 20 Mg PO DAILY 07/15/19 Reported Hydrochlorothiazide Tablet (Hydrochlorothiazide) 25 Mg Tablet 25 Mg PO DAILY 07/15/19 Reported Ondansetron Odt (Ondansetron) 4 Mg Tab.rapdis 1 Tab PO PRN Q6-8HRS PRN 01/31/19 Rx Dgbvnv-Lkjszeli-Bbok 50-325-40 (Butalb/Acetaminophen/Caffeine) 1 Each Tablet 1 Each PO Q6HRS PRN 01/31/19 Rx Comments cxr reviewed 02/07 ett teresa jensen Impression . 1. Acute hypoxic respiratory failure secondary to COVID-19 pneumonia and ARDS 2. COVID-19 pneumonia with sepsis. 3. Abnormal chest x-ray with diffuse alveolar infiltrates and somewhat peripheral location. We will monitor closely. Cannot exclude any aspiration pneumonia. 4. 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 5. Diabetic ketoacidosis, now anion gap closed and being monitored by PCP.BS better 6. Hypernatremia, s/p IV fluids. resolved 7. Hypertension/ poor controlled Plan . 1. Continue with present assist control mode and follow ABGs and make necessary adjustments. 100%FIO2/ PEEP of 10, abg reviewed, fio2 titration to keep sat >94% 2. Broad-spectrum antibiotics. 3. Monitor clinical course. 4. cxr 02/06 worse I>>>O will give low dose lasix 5. s/p convalescent plasma. s/p Tocilizumab 02/03 6. DKA is resolved, steroids started 02/04, change to q12, 8. DVT and stress ulcer prophylaxis. 9. start cardene Discussed with RN and RT. critically ill, Critical care time 30 minutes no overlap. IGNACIO PUTNAM MD Feb 08, 2020 10:38
--- NOTE | 2020-02-08 12:00 | NUR ---
SS following up with discharge planning. SS reviewed pt chart and discussed with pt RN. Pt is currently on the vent and COVID19 positive. Pt on IV Zosyn and has received plasma. Pt Full Code. SS will continue to follow for discharge planning.
[2020-02-08] MEDS: POTASSIUM CHLORIDE 20MEQ 100 ML IV SCH ×2 (16:48→18:17)
[2020-02-08] MEDS: METOPROLOL TARTRATE 5 MG/5 ML VIAL. IVP SCH (18:16)
[2020-02-08] MEDS: fentaNYL HIGH DOSE PCA 55 ML IV PRN (18:24)
[2020-02-08] MEDS: ATORVASTATIN CALCIUM 20 MG TABLET PO SCH (20:36)
[2020-02-08] MEDS: amLODIPine BESYLATE 10 MG TABLET PO SCH (20:37)
--- NOTE | 2020-02-08 21:53 | NUR ---
Blood sugar taken on incorrect patient. Form sent down to lab/lab notified. Correct patient scanned and new sugar taken. Disregard FSBS from 2114.
[2020-02-09] VITALS (28 sets, daily range): BP systolic 118–186; BP diastolic 55–83
[2020-02-09] MEDS: PIPERACILLIN/TAZOBACTAM 3.375 GM in IV NORMAL SALINE 50ML 50 ML IV SCH ×5 (00:20→23:46)
[2020-02-09] MEDS: METOPROLOL TARTRATE 5 MG/5 ML VIAL. IVP SCH ×5 (00:20→23:46)
[2020-02-09] MEDS: INSULIN LISPRO 300 UNITS/3 ML VIAL. SQ SCH ×4 (00:45→17:45)
[2020-02-09] MEDS: IV 1/2 NORMAL SALINE 1,000 ML IV SCH ×3 (00:47→17:07)
[2020-02-09] MEDS: hydrALAZINE 20 MG/ML VIAL. IVP PRN (02:15)
[2020-02-09] MEDS: PROPOFOL 100 ML IV PRN ×4 (02:37→17:03)
[2020-02-09] MEDS: MIDAZOLAM HCL 100 MG in IV NORMAL SALINE 100ML 100 ML IV PRN ×2 (04:10→12:54)
[2020-02-09] MEDS: VECURONIUM BOLUS 10 MG VIAL. IV PRN ×4 (04:30→12:12)
[2020-02-09] MEDS: methylPREDNISolone SOD SUCC PF 40 MG/ML VIAL. IV SCH ×3 (05:47→22:22)
[2020-02-09 06:35] LABS: BASO % 0 % (0-3); EOS # 0.4 x10^3/uL (0.0-0.7); EOS % 2 % (0-3); HEMATOCRIT 41.3 % (39.0-53.0); HEMOGLOBIN 13.6 g/dL (13.0-17.5); LYMPH # 1.2 x10^3/uL (1.0-4.8); LYMPH % 6 % (24-48); MEAN CORPUSCULAR HEMOGLOBIN 29 pg (25-35); MEAN CORPUSCULAR HGB CONC 33 g/dL (31-37); MEAN CORPUSCULAR VOLUME 88 fL (79-100); MONO # 1.4 x10^3/uL (0.0-1.1); MONO % 6 % (0-9); NEUT # 19.4 x10^3/uL (1.8-7.7); NEUT % 86 % (31-73); PLATELET COUNT 310 x10^3/uL (140-400); RED BLOOD COUNT 4.72 x10^6/uL (4.30-5.70); RED CELL DISTRIBUTION WIDTH 13.9 % (11.5-14.5); WHITE BLOOD COUNT 22.5 x10^3/uL (4.0-11.0)
[2020-02-09 07:30] LABS: ALBUMIN 1.8 g/dL (3.4-5.0); ALBUMIN/GLOBULIN RATIO 0.5 (1.0-1.7); CREATININE 1.3 mg/dL (0.7-1.3); GFR 71.6; POTASSIUM 3.3 mmol/L (3.5-5.1); TOTAL BILIRUBIN 0.4 mg/dL (0.2-1.0); TOTAL PROTEIN 5.4 g/dL (6.4-8.2)
[2020-02-09 08:20] LABS: BASE EXCESS ABG -7 mmol/L (-3-3); HCO3 ABG 21 mmol/L (21-28); PCO2 ABG 48 mmHg (35-46); PO2 ABG 56 mmHg (75-108); SAT O2 ABG 84 % (92-99)
[2020-02-09 08:22] LABS: FIO2 ABG 100
[2020-02-09] MEDS ORDERED: SODIUM BICARB ADULT 8.4% 50 MEQ/50 ML DISP.SYRIN. IV ONE (09:00)
[2020-02-09] MEDS: ELECTROLYTE (ICU) PROTOCOL. MC SCH (09:00)
[2020-02-09] MEDS: DOCUSATE 100 MG/10 ML SOLUTION. PO SCH (09:00)
[2020-02-09] MEDS: KETOTIFEN FUMARATE 0.025% OPHTH SOLUTION BOTTLE. OU SCH ×2 (09:00→21:00)
[2020-02-09] MEDS: SENNOSIDES/DOCUSATE 8.6/50MG TABLET. PO SCH ×2 (09:00→21:06)
[2020-02-09] MEDS: INSULIN GLARGINE SYRINGE. SQ SCH ×2 (09:19→21:05)
[2020-02-09] MEDS: LORazepam 40 MG in IV NORMAL SALINE 250ML 250 ML IV PRN ×2 (09:20→22:52)
[2020-02-09] MEDS: hydroCHLOROthiazide 25 MG TABLET PO SCH (09:22)
[2020-02-09] MEDS: ASPIRIN 325 MG TABLET PO SCH (09:22)
[2020-02-09] MEDS: LISINOPRIL 20 MG TABLET PO SCH (09:22)
[2020-02-09] MEDS: PANTOPRAZOLE IV PUSH 40 MG VIAL. IVP SCH (09:22)
[2020-02-09] MEDS: VENLAFAXINE 75 MG TABLET. PO SCH ×2 (09:23→21:06)
[2020-02-09] MEDS: ISOSORBIDE DINITRATE 10 MG TABLET. PO SCH ×3 (09:23→21:06)
[2020-02-09] MEDS: ENOXAPARIN 40 MG/0.4 ML SYRINGE. SQ SCH ×2 (09:24→21:06)
[2020-02-09] MEDS: metFORMIN 500 MG TABLET PO SCH ×2 (09:26→17:02)
--- NOTE | 2020-02-09 09:54 | PDOC ---
PULMONARY PROGRESS NOTES Subjective on vent sedated, versed, PROPOFOL fentanyl, still some paradoxical breathing AC mode 100%FIO2/ 10 PEEP increase BP/ cardine drip Vitals Vital Signs Date Time Temp Pulse Resp B/P (MAP) Pulse Ox O2 Delivery O2 Flow Rate FiO2 02/09/20 09:23 103 148/65 02/09/20 09:02 24 90 Ventilator 02/09/20 07:34 97.7 97.7 02/08/20 18:54 15.0 Comments ros unable to obtain sedated on vent visual exam done due to COVID pandemia nc at appears comfortable no paradoxical abd motion ekg nsr no rash AC mode, no soa sedated/no edema Labs Laboratory Tests Test 02/07/20 17:22 02/07/20 21:49 02/07/20 23:58 02/08/20 06:07 Glucose (Fingerstick) 174 mg/dL (70-99) 195 mg/dL (70-99) 197 mg/dL (70-99) 171 mg/dL (70-99) Test 02/08/20 06:15 02/08/20 07:40 02/08/20 12:30 02/08/20 17:37 White Blood Count 11.3 x10^3/uL (4.0-11.0) Red Blood Count 4.40 x10^6/uL (4.30-5.70) Hemoglobin 12.8 g/dL (13.0-17.5) Hematocrit 37.8 % (39.0-53.0) Mean Corpuscular Volume 86 fL (79-100) Mean Corpuscular Hemoglobin 29 pg (25-35) Mean Corpuscular Hemoglobin Concent 34 g/dL (31-37) Red Cell Distribution Width 13.8 % (11.5-14.5) Platelet Count 221 x10^3/uL (140-400) Neutrophils (%) (Auto) 81 % (31-73) Lymphocytes (%) (Auto) 8 % (24-48) Monocytes (%) (Auto) 10 % (0-9) Eosinophils (%) (Auto) 1 % (0-3) Basophils (%) (Auto) 0 % (0-3) Neutrophils # (Auto) 9.2 x10^3/uL (1.8-7.7) Lymphocytes # (Auto) 0.9 x10^3/uL (1.0-4.8) Monocytes # (Auto) 1.1 x10^3/uL (0.0-1.1) Eosinophils # (Auto) 0.1 x10^3/uL (0.0-0.7) Basophils # (Auto) 0.0 x10^3/uL (0.0-0.2) Sodium Level 138 mmol/L (136-145) Potassium Level 3.1 mmol/L (3.5-5.1) Chloride Level 103 mmol/L (98-107) Carbon Dioxide Level 25 mmol/L (21-32) Anion Gap 10 (6-14) Blood Urea Nitrogen 33 mg/dL (8-26) Creatinine 1.1 mg/dL (0.7-1.3) Estimated GFR (Cockcroft-Gault) 86.8 Glucose Level 203 mg/dL (70-99) Calcium Level 7.4 mg/dL (8.5-10.1) Magnesium Level 2.1 mg/dL (1.8-2.4) O2 Saturation 88 % (92-99) Arterial Blood pH 7.42 (7.35-7.45) Arterial Blood pCO2 at Patient Temp 34 mmHg (35-46) Arterial Blood pO2 at Patient Temp 56 mmHg (75-108) Arterial Blood HCO3 22 mmol/L (21-28) Arterial Blood Base Excess -2 mmol/L (-3-3) FiO2 80 Glucose (Fingerstick) 154 mg/dL (70-99) 213 mg/dL (70-99) Test 02/08/20 21:15 02/08/20 21:58 02/08/20 23:41 02/09/20 06:15 Glucose (Fingerstick) 339 mg/dL (70-99) 199 mg/dL (70-99) 216 mg/dL (70-99) White Blood Count 22.5 x10^3/uL (4.0-11.0) Red Blood Count 4.72 x10^6/uL (4.30-5.70) Hemoglobin 13.6 g/dL (13.0-17.5) Hematocrit 41.3 % (39.0-53.0) Mean Corpuscular Volume 88 fL (79-100) Mean Corpuscular Hemoglobin 29 pg (25-35) Mean Corpuscular Hemoglobin Concent 33 g/dL (31-37) Red Cell Distribution Width 13.9 % (11.5-14.5) Platelet Count 310 x10^3/uL (140-400) Neutrophils (%) (Auto) 86 % (31-73) Lymphocytes (%) (Auto) 6 % (24-48) Monocytes (%) (Auto) 6 % (0-9) Eosinophils (%) (Auto) 2 % (0-3) Basophils (%) (Auto) 0 % (0-3) Neutrophils # (Auto) 19.4 x10^3/uL (1.8-7.7) Lymphocytes # (Auto) 1.2 x10^3/uL (1.0-4.8) Monocytes # (Auto) 1.4 x10^3/uL (0.0-1.1) Eosinophils # (Auto) 0.4 x10^3/uL (0.0-0.7) Basophils # (Auto) 0.0 x10^3/uL (0.0-0.2) Sodium Level 137 mmol/L (136-145) Potassium Level 3.3 mmol/L (3.5-5.1) Chloride Level 102 mmol/L (98-107) Carbon Dioxide Level 21 mmol/L (21-32) Anion Gap 14 (6-14) Blood Urea Nitrogen 32 mg/dL (8-26) Creatinine 1.3 mg/dL (0.7-1.3) Estimated GFR (Cockcroft-Gault) 71.6 BUN/Creatinine Ratio 25 (6-20) Glucose Level 361 mg/dL (70-99) Calcium Level 7.0 mg/dL (8.5-10.1) Total Bilirubin 0.4 mg/dL (0.2-1.0) Aspartate Amino Transf (AST/SGOT) 43 U/L (15-37) Alanine Aminotransferase (ALT/SGPT) 26 U/L (16-63) Alkaline Phosphatase 177 U/L (46-116) Total Protein 5.4 g/dL (6.4-8.2) Albumin 1.8 g/dL (3.4-5.0) Albumin/Globulin Ratio 0.5 (1.0-1.7) Test 02/09/20 06:19 02/09/20 07:50 Glucose (Fingerstick) 342 mg/dL (70-99) O2 Saturation 84 % (92-99) Arterial Blood pH 7.25 (7.35-7.45) Arterial Blood pCO2 at Patient Temp 48 mmHg (35-46) Arterial Blood pO2 at Patient Temp 56 mmHg (75-108) Arterial Blood HCO3 21 mmol/L (21-28) Arterial Blood Base Excess -7 mmol/L (-3-3) FiO2 100 Laboratory Tests Test 02/08/20 12:30 02/08/20 17:37 02/08/20 21:15 02/08/20 21:58 Glucose (Fingerstick) 154 mg/dL (70-99) 213 mg/dL (70-99) 339 mg/dL (70-99) 199 mg/dL (70-99) Test 02/08/20 23:41 02/09/20 06:15 02/09/20 06:19 02/09/20 07:50 Glucose (Fingerstick) 216 mg/dL (70-99) 342 mg/dL (70-99) White Blood Count 22.5 x10^3/uL (4.0-11.0) Red Blood Count 4.72 x10^6/uL (4.30-5.70) Hemoglobin 13.6 g/dL (13.0-17.5) Hematocrit 41.3 % (39.0-53.0) Mean Corpuscular Volume 88 fL (79-100) Mean Corpuscular Hemoglobin 29 pg (25-35) Mean Corpuscular Hemoglobin Concent 33 g/dL (31-37) Red Cell Distribution Width 13.9 % (11.5-14.5) Platelet Count 310 x10^3/uL (140-400) Neutrophils (%) (Auto) 86 % (31-73) Lymphocytes (%) (Auto) 6 % (24-48) Monocytes (%) (Auto) 6 % (0-9) Eosinophils (%) (Auto) 2 % (0-3) Basophils (%) (Auto) 0 % (0-3) Neutrophils # (Auto) 19.4 x10^3/uL (1.8-7.7) Lymphocytes # (Auto) 1.2 x10^3/uL (1.0-4.8) Monocytes # (Auto) 1.4 x10^3/uL (0.0-1.1) Eosinophils # (Auto) 0.4 x10^3/uL (0.0-0.7) Basophils # (Auto) 0.0 x10^3/uL (0.0-0.2) Sodium Level 137 mmol/L (136-145) Potassium Level 3.3 mmol/L (3.5-5.1) Chloride Level 102 mmol/L (98-107) Carbon Dioxide Level 21 mmol/L (21-32) Anion Gap 14 (6-14) Blood Urea Nitrogen 32 mg/dL (8-26) Creatinine 1.3 mg/dL (0.7-1.3) Estimated GFR (Cockcroft-Gault) 71.6 BUN/Creatinine Ratio 25 (6-20) Glucose Level 361 mg/dL (70-99) Calcium Level 7.0 mg/dL (8.5-10.1) Total Bilirubin 0.4 mg/dL (0.2-1.0) Aspartate Amino Transf (AST/SGOT) 43 U/L (15-37) Alanine Aminotransferase (ALT/SGPT) 26 U/L (16-63) Alkaline Phosphatase 177 U/L (46-116) Total Protein 5.4 g/dL (6.4-8.2) Albumin 1.8 g/dL (3.4-5.0) Albumin/Globulin Ratio 0.5 (1.0-1.7) O2 Saturation 84 % (92-99) Arterial Blood pH 7.25 (7.35-7.45) Arterial Blood pCO2 at Patient Temp 48 mmHg (35-46) Arterial Blood pO2 at Patient Temp 56 mmHg (75-108) Arterial Blood HCO3 21 mmol/L (21-28) Arterial Blood Base Excess -7 mmol/L (-3-3) FiO2 100 Medications Active Scripts Medications Dose Route/Sig Max Daily Dose Days Date Category Aspirin 325 Mg Tablet 325 Mg PO DAILY 03/20/19 Rx Venlafaxine Hcl Er (Venlafaxine Hcl) 150 Mg Tab.er.24 1 Tab PO BID 03/18/19 Reported Novolog (Insulin Aspart) 100 Unit/1 Ml Cartridge 25 Unit SQ TIDWMEALS 03/18/19 Reported Metformin Hcl 1,000 Mg Tablet 1,000 Mg PO BIDWMEALS 03/18/19 Reported Zofran (Ondansetron Hcl) 4 Mg Tablet 1 Tab PO Q6HRS 03/18/19 Reported Terazosin Hcl 2 Mg Capsule 2 Cap PO QHS 03/18/19 Reported Lantus Solostar (Insulin Glargine,Hum.rec.anlog) 100 Unit/1 Ml Insuln.pen 80 Unit SQ QHS 03/18/19 Reported Metoprolol Tartrate 50 Mg Tablet 1 Tab PO BID 03/18/19 Reported Omeprazole 20 Mg Capsule.dr 20 Mg PO BID 03/18/19 Reported Lisinopril 40 Mg Tablet 1 Tab PO DAILY 03/18/19 Reported Lxppht-Snmktxdj-Ivgy 50-325-40 (Butalb/Acetaminophen/Caffeine) 1 Each Tablet 1-2 Tab PO PRN Q4HRS PRN MDD 6 tablets 2 07/30/18 Rx Imitrex (Sumatriptan Succinate) 50 Mg Tablet 50 Mg PO PRN BID PRN 01/15/15 Reported Hydrochlorothiazide Tablet (Hydrochlorothiazide) 12.5 Mg Tablet 25 Mg PO DAILY 01/15/15 Reported Meclizine Hcl 25 Mg Tablet 25 Mg PO PRN TID PRN 90 01/15/15 Reported Patanol (Olopatadine Hcl) 5 Ml Drops 1 Drop EACHEYE BID 01/11/15 Reported Atorvastatin Calcium 20 Mg Tablet 1 Tab PO DAILY 01/11/15 Reported Isosorbide Mononitrate 20 Mg Tablet 20 Mg PO BID 08/22/13 Reported Amlodipine Besylate 10 Mg Tablet 10 Mg PO HS 08/22/13 Reported Isosorbide Dinitrate 30 Mg Tablet 20 Mg PO DAILY 07/15/19 Reported Hydrochlorothiazide Tablet (Hydrochlorothiazide) 25 Mg Tablet 25 Mg PO DAILY 07/15/19 Reported Ondansetron Odt (Ondansetron) 4 Mg Tab.rapdis 1 Tab PO PRN Q6-8HRS PRN 01/31/19 Rx Rfkltt-Uwimomra-Xzan 50-325-40 (Butalb/Acetaminophen/Caffeine) 1 Each Tablet 1 Each PO Q6HRS PRN 01/31/19 Rx Comments cxr reviewed 02/07 ett ok, b lat infilt Impression . 1. Acute hypoxic respiratory failure secondary to COVID-19 pneumonia and ARDS 2. COVID-19 pneumonia with sepsis. 3. Abnormal chest x-ray with diffuse alveolar infiltrates and somewhat peripheral location. We will monitor closely. Cannot exclude any aspiration pneumonia. 4. 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 5. Diabetic ketoacidosis, now anion gap closed and being monitored by PCP.BS better 6. Hypernatremia, s/p IV fluids. resolved 7. Hypertension/ cardene Plan . 1. Continue with present assist control mode and follow ABGs and make necessary adjustments. 100%FIO2/ PEEP of 11, abg reviewed, fio2 titration to keep sat >94% , increase PEEP/TV 2. Broad-spectrum antibiotics. 3. Monitor clinical course. 4. cxr 02/06 worse I>>>O will give prn lasix 5. s/p convalescent plasma. s/p Tocilizumab 02/03 6. DKA is resolved, steroids started 02/04, changed to q12, 8. DVT and stress ulcer prophylaxis. 9. on cardene 10. add ativan drip. prn paralytics Discussed with RN and RT. prognosis guarded critically ill, Critical care time 30 minutes no overlap. IGNACIO PUTNAM MD Feb 09, 2020 09:54
--- NOTE | 2020-02-09 10:49 | PDOC ---
CARDIO Progress Notes Date and Time Date of Service 02/09/2020 Time of Evaluation 1020 Subjective Subjective: Other (intubated) Vitals Vitals Vital Signs Date Time Temp Pulse Resp B/P (MAP) Pulse Ox O2 Delivery O2 Flow Rate FiO2 02/09/20 10:19 89 26 118/55 (76) 88 Ventilator 02/09/20 07:34 97.7 97.7 02/08/20 18:54 15.0 Weight Weight [ ] Input and Output Intake and Output Intake and Output 02/09/20 07:00 Intake Total 6597 ml Output Total 2235 ml Balance 4362 ml Intake IV Total 5147 ml Tube Feeding 1000 ml Other 450 ml Output Urine Total 2235 ml Laboratory Labs Laboratory Tests Test 02/08/20 12:30 02/08/20 17:37 02/08/20 21:15 02/08/20 21:58 Glucose (Fingerstick) 154 mg/dL (70-99) 213 mg/dL (70-99) 339 mg/dL (70-99) 199 mg/dL (70-99) Test 02/08/20 23:41 02/09/20 06:15 02/09/20 06:19 02/09/20 07:50 Glucose (Fingerstick) 216 mg/dL (70-99) 342 mg/dL (70-99) White Blood Count 22.5 x10^3/uL (4.0-11.0) Red Blood Count 4.72 x10^6/uL (4.30-5.70) Hemoglobin 13.6 g/dL (13.0-17.5) Hematocrit 41.3 % (39.0-53.0) Mean Corpuscular Volume 88 fL (79-100) Mean Corpuscular Hemoglobin 29 pg (25-35) Mean Corpuscular Hemoglobin Concent 33 g/dL (31-37) Red Cell Distribution Width 13.9 % (11.5-14.5) Platelet Count 310 x10^3/uL (140-400) Neutrophils (%) (Auto) 86 % (31-73) Lymphocytes (%) (Auto) 6 % (24-48) Monocytes (%) (Auto) 6 % (0-9) Eosinophils (%) (Auto) 2 % (0-3) Basophils (%) (Auto) 0 % (0-3) Neutrophils # (Auto) 19.4 x10^3/uL (1.8-7.7) Lymphocytes # (Auto) 1.2 x10^3/uL (1.0-4.8) Monocytes # (Auto) 1.4 x10^3/uL (0.0-1.1) Eosinophils # (Auto) 0.4 x10^3/uL (0.0-0.7) Basophils # (Auto) 0.0 x10^3/uL (0.0-0.2) Sodium Level 137 mmol/L (136-145) Potassium Level 3.3 mmol/L (3.5-5.1) Chloride Level 102 mmol/L (98-107) Carbon Dioxide Level 21 mmol/L (21-32) Anion Gap 14 (6-14) Blood Urea Nitrogen 32 mg/dL (8-26) Creatinine 1.3 mg/dL (0.7-1.3) Estimated GFR (Cockcroft-Gault) 71.6 BUN/Creatinine Ratio 25 (6-20) Glucose Level 361 mg/dL (70-99) Calcium Level 7.0 mg/dL (8.5-10.1) Total Bilirubin 0.4 mg/dL (0.2-1.0) Aspartate Amino Transf (AST/SGOT) 43 U/L (15-37) Alanine Aminotransferase (ALT/SGPT) 26 U/L (16-63) Alkaline Phosphatase 177 U/L (46-116) Total Protein 5.4 g/dL (6.4-8.2) Albumin 1.8 g/dL (3.4-5.0) Albumin/Globulin Ratio 0.5 (1.0-1.7) O2 Saturation 84 % (92-99) Arterial Blood pH 7.25 (7.35-7.45) Arterial Blood pCO2 at Patient Temp 48 mmHg (35-46) Arterial Blood pO2 at Patient Temp 56 mmHg (75-108) Arterial Blood HCO3 21 mmol/L (21-28) Arterial Blood Base Excess -7 mmol/L (-3-3) FiO2 100 Microbiology Micro Microbiology 02/02/20 Blood Culture - Final, Complete NO GROWTH AFTER 5 DAYS Physical Exam Chest: Symmetric LUNGS: Other (intubated, vent) Heart: RRR (SR without significant ectopies) Abdomen: Other (soft) Neurology: other (sedated) Assessment Assessment 1. Acute respiratory failure secondary to COVID PNA, intubated/vent 2. Leukocytosis/sepsis 3. CHRISTIANNE; resolved 4. Hypertensive urgency; BP stable and controlled 6. Hyperlipidemia 7. DM2: labile BG per PCP 8. Hypokalemia 9. Prior CVA 10. H/o seizures Recommendations Continue BP regimen. Currently on multiple sedation. Will titrate off cardene and monitor BP trend. Ongoing treatment of COVID PNA, ARDS as per pulm, IM Secondary prevention measures as toleraed. ASA. Replace K Outpatient echo when recovered from COVID Supportive care from a CV standpoint. Justicifation of Admission Dx: Justifications for Admission: Justification of Admission Dx: Yes Sepsis: Altered Mental Status ADAMA GUZMAN [employer] Feb 09, 2020 10:48
--- NOTE | 2020-02-09 10:56 | PDOC ---
PROGRESS NOTES History of Present Illness History of Present Illness VTE Prophylaxis Ordered VTE Prophylaxis Devices: No VTE Pharmacological Prophylaxi: Yes IMPRESSION Assessment/Plan Toxic and metabolic encephalopathy Sepsis with pulmonary focus most likely Suspect gram negative organism pneumonia POS COVID 19 infection DKA lactic acidosis secondary to a combination of metabolic and infectious process ongoing Acute renal failure, vasomotor etiology most likely Hypernatremia Severe dehydration History of essential hypertension History of CVA Diabetes mellitus type 2 insulin requiring Severe anion gap metabolic acidosis Plan: isolation admit to ICU VENT SUPPORT AC mode 100%FIO2/ 10 PEEP fluid resuscitation DKA protocol Broad spectrum antibiotics for pneumonic process POS COVID 19 infection follow BMP every 4 hours. supportive measures vent management, will consult pulmonology for assistance. further recommendations based on clinical course DVT prophylaxis: heparin cardiology consult cxr 02/06 worse I>>>O will give low dose lasix s/p convalescent plasma. s/p Tocilizumab 02/03 titrate off cardene and monitor BP trend. 02/08 Suspect gram negative organism pneumonia worsening hypoxia AC mode 100%FIO2/ 9 PEEP Justicifation of Admission Dx: Justicifation of Admission Dx: Justifications for Admission: Justification of Admission Dx: Yes Sepsis: Altered Mental Status 35 MIN CC TIME Vitals Vitals Vital Signs Date Time Temp Pulse Resp B/P (MAP) Pulse Ox O2 Delivery O2 Flow Rate FiO2 02/09/20 10:19 89 26 118/55 (76) 88 Ventilator 02/09/20 07:34 97.7 97.7 02/08/20 18:54 15.0 Physical Exam Physical Exam SEDATED ON VENT visual exam done due to COVID pandemia EXTREMITIES: Without any cyanosis. NEUROLOGIC: Sedated PSYCHIATRIC: uanble to obtain due to acute process . SKIN: No ulcerations General: Other (sedated ) Extremities: No edema Skin: No significant lesion Labs LABS Laboratory Tests Test 02/08/20 12:30 02/08/20 17:37 02/08/20 21:15 02/08/20 21:58 Glucose (Fingerstick) 154 mg/dL (70-99) 213 mg/dL (70-99) 339 mg/dL (70-99) 199 mg/dL (70-99) Test 02/08/20 23:41 02/09/20 06:15 02/09/20 06:19 02/09/20 07:50 Glucose (Fingerstick) 216 mg/dL (70-99) 342 mg/dL (70-99) White Blood Count 22.5 x10^3/uL (4.0-11.0) Red Blood Count 4.72 x10^6/uL (4.30-5.70) Hemoglobin 13.6 g/dL (13.0-17.5) Hematocrit 41.3 % (39.0-53.0) Mean Corpuscular Volume 88 fL (79-100) Mean Corpuscular Hemoglobin 29 pg (25-35) Mean Corpuscular Hemoglobin Concent 33 g/dL (31-37) Red Cell Distribution Width 13.9 % (11.5-14.5) Platelet Count 310 x10^3/uL (140-400) Neutrophils (%) (Auto) 86 % (31-73) Lymphocytes (%) (Auto) 6 % (24-48) Monocytes (%) (Auto) 6 % (0-9) Eosinophils (%) (Auto) 2 % (0-3) Basophils (%) (Auto) 0 % (0-3) Neutrophils # (Auto) 19.4 x10^3/uL (1.8-7.7) Lymphocytes # (Auto) 1.2 x10^3/uL (1.0-4.8) Monocytes # (Auto) 1.4 x10^3/uL (0.0-1.1) Eosinophils # (Auto) 0.4 x10^3/uL (0.0-0.7) Basophils # (Auto) 0.0 x10^3/uL (0.0-0.2) Sodium Level 137 mmol/L (136-145) Potassium Level 3.3 mmol/L (3.5-5.1) Chloride Level 102 mmol/L (98-107) Carbon Dioxide Level 21 mmol/L (21-32) Anion Gap 14 (6-14) Blood Urea Nitrogen 32 mg/dL (8-26) Creatinine 1.3 mg/dL (0.7-1.3) Estimated GFR (Cockcroft-Gault) 71.6 BUN/Creatinine Ratio 25 (6-20) Glucose Level 361 mg/dL (70-99) Calcium Level 7.0 mg/dL (8.5-10.1) Total Bilirubin 0.4 mg/dL (0.2-1.0) Aspartate Amino Transf (AST/SGOT) 43 U/L (15-37) Alanine Aminotransferase (ALT/SGPT) 26 U/L (16-63) Alkaline Phosphatase 177 U/L (46-116) Total Protein 5.4 g/dL (6.4-8.2) Albumin 1.8 g/dL (3.4-5.0) Albumin/Globulin Ratio 0.5 (1.0-1.7) O2 Saturation 84 % (92-99) Arterial Blood pH 7.25 (7.35-7.45) Arterial Blood pCO2 at Patient Temp 48 mmHg (35-46) Arterial Blood pO2 at Patient Temp 56 mmHg (75-108) Arterial Blood HCO3 21 mmol/L (21-28) Arterial Blood Base Excess -7 mmol/L (-3-3) FiO2 100 Assessment and Plan Assessmemt and Plan Problems Medical Problems: (1) Acute metabolic encephalopathy Status: Acute (2) Acute renal insufficiency Status: Acute (3) DKA (diabetic ketoacidoses) Status: Acute (4) Pneumonia Status: Acute (5) Respiratory failure with hypoxia Status: Acute (6) Suspected 2019 novel coronavirus infection Status: Acute Comment Review of Relevant I have reviewed the following items myra (where applicable) has been applied. Labs Laboratory Tests Test 02/07/20 17:22 02/07/20 21:49 02/07/20 23:58 02/08/20 06:07 Glucose (Fingerstick) 174 mg/dL (70-99) 195 mg/dL (70-99) 197 mg/dL (70-99) 171 mg/dL (70-99) Test 02/08/20 06:15 02/08/20 07:40 02/08/20 12:30 02/08/20 17:37 White Blood Count 11.3 x10^3/uL (4.0-11.0) Red Blood Count 4.40 x10^6/uL (4.30-5.70) Hemoglobin 12.8 g/dL (13.0-17.5) Hematocrit 37.8 % (39.0-53.0) Mean Corpuscular Volume 86 fL (79-100) Mean Corpuscular Hemoglobin 29 pg (25-35) Mean Corpuscular Hemoglobin Concent 34 g/dL (31-37) Red Cell Distribution Width 13.8 % (11.5-14.5) Platelet Count 221 x10^3/uL (140-400) Neutrophils (%) (Auto) 81 % (31-73) Lymphocytes (%) (Auto) 8 % (24-48) Monocytes (%) (Auto) 10 % (0-9) Eosinophils (%) (Auto) 1 % (0-3) Basophils (%) (Auto) 0 % (0-3) Neutrophils # (Auto) 9.2 x10^3/uL (1.8-7.7) Lymphocytes # (Auto) 0.9 x10^3/uL (1.0-4.8) Monocytes # (Auto) 1.1 x10^3/uL (0.0-1.1) Eosinophils # (Auto) 0.1 x10^3/uL (0.0-0.7) Basophils # (Auto) 0.0 x10^3/uL (0.0-0.2) Sodium Level 138 mmol/L (136-145) Potassium Level 3.1 mmol/L (3.5-5.1) Chloride Level 103 mmol/L (98-107) Carbon Dioxide Level 25 mmol/L (21-32) Anion Gap 10 (6-14) Blood Urea Nitrogen 33 mg/dL (8-26) Creatinine 1.1 mg/dL (0.7-1.3) Estimated GFR (Cockcroft-Gault) 86.8 Glucose Level 203 mg/dL (70-99) Calcium Level 7.4 mg/dL (8.5-10.1) Magnesium Level 2.1 mg/dL (1.8-2.4) O2 Saturation 88 % (92-99) Arterial Blood pH 7.42 (7.35-7.45) Arterial Blood pCO2 at Patient Temp 34 mmHg (35-46) Arterial Blood pO2 at Patient Temp 56 mmHg (75-108) Arterial Blood HCO3 22 mmol/L (21-28) Arterial Blood Base Excess -2 mmol/L (-3-3) FiO2 80 Glucose (Fingerstick) 154 mg/dL (70-99) 213 mg/dL (70-99) Test 02/08/20 21:15 02/08/20 21:58 02/08/20 23:41 02/09/20 06:15 Glucose (Fingerstick) 339 mg/dL (70-99) 199 mg/dL (70-99) 216 mg/dL (70-99) White Blood Count 22.5 x10^3/uL (4.0-11.0) Red Blood Count 4.72 x10^6/uL (4.30-5.70) Hemoglobin 13.6 g/dL (13.0-17.5) Hematocrit 41.3 % (39.0-53.0) Mean Corpuscular Volume 88 fL (79-100) Mean Corpuscular Hemoglobin 29 pg (25-35) Mean Corpuscular Hemoglobin Concent 33 g/dL (31-37) Red Cell Distribution Width 13.9 % (11.5-14.5) Platelet Count 310 x10^3/uL (140-400) Neutrophils (%) (Auto) 86 % (31-73) Lymphocytes (%) (Auto) 6 % (24-48) Monocytes (%) (Auto) 6 % (0-9) Eosinophils (%) (Auto) 2 % (0-3) Basophils (%) (Auto) 0 % (0-3) Neutrophils # (Auto) 19.4 x10^3/uL (1.8-7.7) Lymphocytes # (Auto) 1.2 x10^3/uL (1.0-4.8) Monocytes # (Auto) 1.4 x10^3/uL (0.0-1.1) Eosinophils # (Auto) 0.4 x10^3/uL (0.0-0.7) Basophils # (Auto) 0.0 x10^3/uL (0.0-0.2) Sodium Level 137 mmol/L (136-145) Potassium Level 3.3 mmol/L (3.5-5.1) Chloride Level 102 mmol/L (98-107) Carbon Dioxide Level 21 mmol/L (21-32) Anion Gap 14 (6-14) Blood Urea Nitrogen 32 mg/dL (8-26) Creatinine 1.3 mg/dL (0.7-1.3) Estimated GFR (Cockcroft-Gault) 71.6 BUN/Creatinine Ratio 25 (6-20) Glucose Level 361 mg/dL (70-99) Calcium Level 7.0 mg/dL (8.5-10.1) Total Bilirubin 0.4 mg/dL (0.2-1.0) Aspartate Amino Transf (AST/SGOT) 43 U/L (15-37) Alanine Aminotransferase (ALT/SGPT) 26 U/L (16-63) Alkaline Phosphatase 177 U/L (46-116) Total Protein 5.4 g/dL (6.4-8.2) Albumin 1.8 g/dL (3.4-5.0) Albumin/Globulin Ratio 0.5 (1.0-1.7) Test 02/09/20 06:19 02/09/20 07:50 Glucose (Fingerstick) 342 mg/dL (70-99) O2 Saturation 84 % (92-99) Arterial Blood pH 7.25 (7.35-7.45) Arterial Blood pCO2 at Patient Temp 48 mmHg (35-46) Arterial Blood pO2 at Patient Temp 56 mmHg (75-108) Arterial Blood HCO3 21 mmol/L (21-28) Arterial Blood Base Excess -7 mmol/L (-3-3) FiO2 100 Laboratory Tests Test 02/08/20 12:30 02/08/20 17:37 02/08/20 21:15 02/08/20 21:58 Glucose (Fingerstick) 154 mg/dL (70-99) 213 mg/dL (70-99) 339 mg/dL (70-99) 199 mg/dL (70-99) Test 02/08/20 23:41 02/09/20 06:15 02/09/20 06:19 02/09/20 07:50 Glucose (Fingerstick) 216 mg/dL (70-99) 342 mg/dL (70-99) White Blood Count 22.5 x10^3/uL (4.0-11.0) Red Blood Count 4.72 x10^6/uL (4.30-5.70) Hemoglobin 13.6 g/dL (13.0-17.5) Hematocrit 41.3 % (39.0-53.0) Mean Corpuscular Volume 88 fL (79-100) Mean Corpuscular Hemoglobin 29 pg (25-35) Mean Corpuscular Hemoglobin Concent 33 g/dL (31-37) Red Cell Distribution Width 13.9 % (11.5-14.5) Platelet Count 310 x10^3/uL (140-400) Neutrophils (%) (Auto) 86 % (31-73) Lymphocytes (%) (Auto) 6 % (24-48) Monocytes (%) (Auto) 6 % (0-9) Eosinophils (%) (Auto) 2 % (0-3) Basophils (%) (Auto) 0 % (0-3) Neutrophils # (Auto) 19.4 x10^3/uL (1.8-7.7) Lymphocytes # (Auto) 1.2 x10^3/uL (1.0-4.8) Monocytes # (Auto) 1.4 x10^3/uL (0.0-1.1) Eosinophils # (Auto) 0.4 x10^3/uL (0.0-0.7) Basophils # (Auto) 0.0 x10^3/uL (0.0-0.2) Sodium Level 137 mmol/L (136-145) Potassium Level 3.3 mmol/L (3.5-5.1) Chloride Level 102 mmol/L (98-107) Carbon Dioxide Level 21 mmol/L (21-32) Anion Gap 14 (6-14) Blood Urea Nitrogen 32 mg/dL (8-26) Creatinine 1.3 mg/dL (0.7-1.3) Estimated GFR (Cockcroft-Gault) 71.6 BUN/Creatinine Ratio 25 (6-20) Glucose Level 361 mg/dL (70-99) Calcium Level 7.0 mg/dL (8.5-10.1) Total Bilirubin 0.4 mg/dL (0.2-1.0) Aspartate Amino Transf (AST/SGOT) 43 U/L (15-37) Alanine Aminotransferase (ALT/SGPT) 26 U/L (16-63) Alkaline Phosphatase 177 U/L (46-116) Total Protein 5.4 g/dL (6.4-8.2) Albumin 1.8 g/dL (3.4-5.0) Albumin/Globulin Ratio 0.5 (1.0-1.7) O2 Saturation 84 % (92-99) Arterial Blood pH 7.25 (7.35-7.45) Arterial Blood pCO2 at Patient Temp 48 mmHg (35-46) Arterial Blood pO2 at Patient Temp 56 mmHg (75-108) Arterial Blood HCO3 21 mmol/L (21-28) Arterial Blood Base Excess -7 mmol/L (-3-3) FiO2 100 Microbiology 02/02/20 Blood Culture - Final, Complete NO GROWTH AFTER 5 DAYS Medications Current Medications Sodium Chloride 1,000 ml @ 1,000 mls/hr 1X ONCE IV Last administered on 02/02/20at 16:48; Start 02/02/20 at 15:45; Stop 02/02/20 at 16:44; Status DC Etomidate (Amidate) 20 mg 1X ONCE IV Last administered on 02/02/20at 15:54; Start 02/02/20 at 15:45; Stop 02/02/20 at 15:52; Status DC Rocuronium [place] (Zemuron) 50 mg 1X ONCE IV Last administered on 02/02/20at 15:55; Start 02/02/20 at 15:45; Stop 02/02/20 at 15:52; Status DC Propofol 100 ml @ 0 mls/hr CONT PRN IV SEE PROTOCOL Last administered on 02/02/20at 16:33; Start 02/02/20 at 15:45; Stop 02/02/20 at 17:44; Status DC Chlorhexidine Gluconate (Peridex) 15 ml BID MM ; Start 02/02/20 at 21:00; Stop 02/02/20 at 17:39; Status DC Fentanyl Citrate (Fentanyl 2ml Vial) 100 mcg 1X ONCE IV Last administered on 02/02/20at 16:34; Start 02/02/20 at 16:15; Stop 02/02/20 at 16:16; Status DC Sodium Chloride 1,000 ml @ 1,000 mls/hr 1X ONCE IV Last administered on 02/02/20at 16:15; Start 02/02/20 at 16:15; Stop 02/02/20 at 17:20; Status DC Aspirin (Aspirin Rectal Supp) 300 mg 1X ONCE [place] Last administered on 02/02/20at 16:35; Start 02/02/20 at 16:15; Stop 02/02/20 at 16:17; Status DC Acetaminophen (Tylenol) 650 mg PRN Q6HRS PRN PO Headaches, Temp > 101.5'; Start 02/02/20 at 16:15 Prochlorperazine Edisylate (Compazine) 5 mg PRN Q6HRS PRN IVP NAUSEA/VOMITING; Start 02/02/20 at 16:15 Prochlorperazine (Compazine) 25 mg PRN Q12HR PRN [place] NAUSEA/VOMITING; Start 02/02/20 at 16:15 Info (Icu Electrolyte Protocol) 1 ea DAILY MC Last administered on 02/09/20at 09:00; Start 02/03/20 at 09:00 Heparin Sodium (Porcine) (Heparin Sodium) 5,000 unit Q8HRS SQ Last administered on 02/04/20at 05:32; Start 02/02/20 at 22:00; Stop 02/04/20 at 14:45; Status DC Sodium Chloride (Normal Saline Flush) 3 ml QSHIFT PRN IV AFTER MEDS AND BLOOD DRAWS; Start 02/02/20 at 16:15 Oxycodone/ Acetaminophen (Percocet 5/325) 1 tab PRN Q4HRS PRN PO MILD PAIN, 1ST CHOICE; Start 02/02/20 at 16:15 Morphine Sulfate (Morphine Sulfate) 2 mg PRN Q1HR PRN IV PAIN; Start 02/02/20 at 16:15 Senna/Docusate Sodium (Senna Plus) 1 tab BID PO Last administered on 02/08/20at 20:36; Start 02/02/20 at 21:00 Docusate Sodium (Colace) 100 mg BID PO ; Start 02/02/20 at 21:00; Stop 02/04/20 at 19:30; Status DC Lactulose (Lactulose) 20 gm PRN Q12HR PRN PO CONSTIPATION; Start 02/02/20 at 16:15 Amlodipine Besylate (Norvasc) 10 mg HS PO Last administered on 02/08/20at 20:37; Start 02/02/20 at 21:00 Aspirin (Grover Aspirin) 325 mg DAILY PO Last administered on 02/09/20at 09:22; Start 02/03/20 at 09:00 Atorvastatin Calcium (Lipitor) 20 mg QHS PO Last administered on 02/08/20at 20:36; Start 02/02/20 at 21:00 Acetaminophen/ Butalbital/ Caffeine (Fioricet) 1 tab PRN Q6HRS PRN PO MIGRAINE HEADACHE- 1ST CHOICE; Start 02/02/20 at 16:15 Hydrochlorothiazide (Hydrodiuril) 25 mg DAILY PO Last administered on 02/09/20 09:22; Start 02/03/20 at 09:00 Isosorbide Dinitrate (Isordil) 10 mg TID PO Last administered on 02/09/20 09:23; Start 02/02/20 at 21:00 Lisinopril (Prinivil) 40 mg DAILY PO Last administered on 02/09/20at 09:22; Start 02/03/20 at 09:00 Metoprolol Tartrate (Lopressor) 50 mg BID PO Last administered on 02/07/20at 21:21; Start 02/02/20 at 21:00; Stop 02/08/20 at 17:13; Status DC Non-Formulary Medication (Hydrochlorothiazide (Hydrochlorothiazide Tablet)) 25 mg DAILY PO ; Start 02/03/20 at 09:00; Status UNV Non-Formulary Medication (Insulin Aspart (Novolog)) 25 unit TIDWMEALS SQ ; Start 02/02/20 at 17:00; Status UNV Non-Formulary Medication (Insulin Glargine,Hum.rec.anlog (Lantus Solostar)) 80 unit QHS SQ ; Start 02/02/20 at 21:00; Status UNV Non-Formulary Medication (Isosorbide Dinitrate ) 20 mg DAILY PO ; Start 02/03/20 at 09:00; Status UNV Meclizine HCl (Antivert) 25 mg PRN Q6HRS PRN PO NAUSEA- 2ND CHOICE; Start 02/02/20 at 17:45 Metformin HCl (Glucophage) 1,000 mg BIDWMEALS PO Last administered on 02/09/20 09:26; Start 02/02/20 at 17:00 Ketotifen Fumarate (Zaditor) 1 drop BID OU Last administered on 02/09/20at 09:00; Start 02/02/20 at 21:00 Pantoprazole Sodium (PROTONIX VIAL for IV PUSH) 40 mg DAILYAC IVP Last administered on 02/09/20at 09:22; Start 02/03/20 at 07:30 Ondansetron HCl (Zofran Odt) 4 mg PRN Q8HRS PRN PO NAUSEA/VOMITING, 1ST CHOICE PO; Start 02/02/20 at 17:45 Sumatriptan Succinate (Imitrex) 50 mg PRN BID PRN PO MIGRAINE HEADACHE; Start 02/02/20 at 17:45 Non-Formulary Medication (Terazosin Hcl ) 2 cap QHS PO ; Start 02/02/20 at 21:00; Status UNV Venlafaxine HCl (Effexor) 150 mg BID PO Last administered on 02/09/20at 09:23; Start 02/02/20 at 21:00 Fentanyl Citrate 30 ml @ 0 mls/hr CONT PRN IV SEE PROTOCOL Last administered on 02/06/20at 05:48; Start 02/02/20 at 16:30; Stop 02/06/20 at 10:59; Status DC Propofol 100 ml @ 0 mls/hr CONT PRN IV SEE PROTOCOL Last administered on 02/09/20at 07:10; Start 02/02/20 at 16:30 Fentanyl Citrate (Fentanyl 2ml Vial) 25 mcg PRN Q1HR PRN IV SEE COMMENTS; Start 02/02/20 at 16:30 Fentanyl Citrate (Fentanyl 2ml Vial) 50 mcg PRN Q1HR PRN IV SEE COMMENTS; Start 02/02/20 at 16:30 Chlorhexidine Gluconate (Peridex) 15 ml BID MM Last administered on 02/07/20at 21:20; Start 02/02/20 at 21:00; Stop 02/08/20 at 18:56; Status DC Morphine Sulfate (Morphine Sulfate) 2 mg PRN Q1HR PRN IV SEE COMMENTS.; Start 02/02/20 at 16:30 Morphine Sulfate (Morphine Sulfate) 4 mg PRN Q1HR PRN IV SEE COMMENTS.; Start 02/02/20 at 16:30 Midazolam HCl (Versed) 1 mg PRN Q30MIN PRN IV SEE COMMENTS.; Start 02/02/20 at 16:30 Piperacillin Sod/ Tazobactam Sod 4.5 gm/Sodium Chloride 100 ml @ 200 mls/hr 1X ONCE IV Last administered on 02/02/20at 17:03; Start 02/02/20 at 16:30; Stop 02/02/20 at 16:59; Status DC Azithromycin 250 ml @ 250 mls/hr 1X ONCE IV Last administered on 02/02/20at 17:40; Start 02/02/20 at 16:30; Stop 02/02/20 at 17:34; Status DC Dexamethasone Sodium Phosphate (Decadron) 10 mg 1X ONCE IVP Last administered on 02/02/20at 16:54; Start 02/02/20 at 16:30; Stop 02/02/20 at 16:33; Status DC Midazolam HCl (Versed) 5 mg 1X ONCE IV Last administered on 02/02/20at 16:35; Start 02/02/20 at 16:45; Stop 02/02/20 at 16:46; Status DC Insulin Human Regular (HumuLIN R VIAL) 8 unit 1X ONCE SQ Last administered on 02/02/20at 16:51; Start 02/02/20 at 16:45; Stop 02/02/20 at 16:46; Status DC Sodium Chloride 1,000 ml @ 500 mls/hr Q2H IV Last administered on 02/02/20at 18:33; Start 02/02/20 at 16:36; Stop 02/02/20 at 18:35; Status DC Insulin Human Regular 100 unit/ Sodium Chloride 101 ml @ 0 mls/hr CONT PRN PRN IV PER PROTOCOL Last administered on 02/03/20at 02:08; Start 02/02/20 at 16:45; Stop 02/03/20 at 02:31; Status DC Insulin Human Regular 100 ml @ As Directed STK-MED ONCE IV ; Start 02/02/20 at 16:41; Stop 02/02/20 at 16:41; Status DC Etomidate (Amidate) 20 mg 1X ONCE IV ; Start 02/02/20 at 17:15; Stop 02/02/20 at 17:22; Status DC Rocuronium [place] (Zemuron) 50 mg 1X ONCE IV ; Start 02/02/20 at 17:15; Stop 02/02/20 at 17:34; Status DC Piperacillin Sod/ Tazobactam Sod 3.375 gm/Sodium Chloride 50 ml @ 100 mls/hr Q6HRS IV Last administered on 02/09/20at 05:48; Start 02/03/20 at 00:00 Sodium Chloride 1,000 ml @ 250 mls/hr Q4H IV Last administered on 02/02/20at 18:43; Start 02/02/20 at 18:45; Stop 02/02/20 at 22:40; Status DC Pantoprazole Sodium (PROTONIX VIAL for IV PUSH) 40 mg 1X ONCE IVP Last administered on 02/02/20at 22:47; Start 02/02/20 at 20:15; Stop 02/02/20 at 20:40; Status DC Labetalol HCl (Normodyne Iv Push) 10 mg PRN Q4HRS PRN IVP HYPERTENSION Last administered on 02/04/20at 05:20; Start 02/02/20 at 20:15 Dextrose/Sodium Chloride 1,000 ml @ 250 mls/hr Q4H IV Last administered on 02/03/20at 07:59; Start 02/02/20 at 22:45; Stop 02/03/20 at 11:23; Status DC Insulin Human Regular 100 unit/ Sodium Chloride 101 ml @ 0 mls/hr CONT PRN IV SEE I/O RECORD; Start 02/03/20 at 02:15 Potassium Chloride/Water 100 ml @ 100 mls/hr PRN Q1HR PRN IV SEE COMMENTS; Start 02/03/20 at 05:00 Potassium Chloride/Water 100 ml @ 100 mls/hr Q1H IV Last administered on 02/03/20at 07:58; Start 02/03/20 at 05:00; Stop 02/03/20 at 08:59; Status DC Insulin Glargine (Lantus Syringe) 18 unit BID SQ Last administered on 02/09/20at 09:19; Start 02/03/20 at 09:00 Insulin Human Lispro (HumaLOG) 0-9 UNITS Q6HRS SQ Last administered on 02/09/20at 06:27; Start 02/03/20 at 12:00 Dextrose (Dextrose 50%-Water Syringe) 12.5 gm PRN Q15MIN PRN IV SEE COMMENTS; Start 02/03/20 at 06:15 Sodium Chloride 1,000 ml @ 125 mls/hr 1X ONCE IV Last administered on 02/03/20at 12:01; Start 02/03/20 at 11:30; Stop 02/03/20 at 19:29; Status DC Vecuronium [place] (Norcuron Bolus) 10 mg PRN Q6HRS PRN IV SEDATION Last administered on 02/04/20at 12:09; Start 02/04/20 at 07:30; Stop 02/04/20 at 19:30; Status DC Potassium Chloride/Water 100 ml @ 100 mls/hr 1X ONCE IV Last administered on 02/04/20at 10:04; Start 02/04/20 at 10:00; Stop 02/04/20 at 10:59; Status DC Tocilizumab 400 mg/Sodium Chloride 100 ml @ 100 mls/hr 1X ONCE IV Last administered on 02/04/20at 14:53; Start 02/04/20 at 13:00; Stop 02/04/20 at 13:59; Status DC Enoxaparin Sodium (Lovenox 40mg Syringe) 40 mg BID SQ Last administered on 02/09/20at 09:24; Start 02/04/20 at 21:00 Sodium Chloride 1,000 ml @ 125 mls/hr Q8H IV Last administered on 02/09/20 09:26; Start 02/04/20 at 16:00 Vecuronium [place] (Norcuron Bolus) 10 mg PRN Q1HR PRN IV SEDATION Last administered on 02/09/20at 10:17; Start 02/04/20 at 19:30 Docusate Sodium (Colace Solution) 100 mg DAILY PO Last administered on 02/07/20at 08:50; Start 02/05/20 at 09:00 Norepinephrine Bitartrate 8 mg/ Dextrose 258 ml @ 15.519 mls/ hr CONT PRN IV PER PROTOCOL Last administered on 02/07/20at 02:51; Start 02/04/20 at 22:30 Potassium Bicarbonate (Potassium Effervescent Tablet) 40 meq 1X ONCE PO Last administered on 02/05/20at 08:26; Start 02/05/20 at 07:45; Stop 02/05/20 at 07:46; Status DC Midazolam HCl 100 mg/Sodium Chloride 100 ml @ 1 mls/hr CONT PRN IV . Last administered on 02/09/20at 04:10; Start 02/05/20 at 10:00 Methylprednisolone Sodium Succinate (SOLU-Medrol 40MG VIAL) 40 mg Q8HRS IV Last administered on 02/09/20at 05:47; Start 02/05/20 at 14:00 Hydralazine HCl (Apresoline Inj) 10 mg PRN Q4HRS PRN IVP ELEVATED BP, SEE COMMENTS Last administered on 02/09/20at 02:15; Start 02/05/20 at 17:00; Stop 02/09/20 at 09:08; Status DC Fentanyl Citrate 55 ml @ 1.98 mls/hr CONT PRN IV SEE PROTOCOL Last administered on 02/08/20at 18:24; Start 02/06/20 at 11:00 Furosemide (Lasix) 20 mg 1X ONCE IVP Last administered on 02/06/20at 14:08; Start 02/06/20 at 14:00; Stop 02/06/20 at 14:01; Status DC Phenylephrine HCl 50 mg/Sodium Chloride 255 ml @ 13.372 mls/ hr CONT PRN IV SEE I/O RECORD Last administered on 02/07/20at 05:51; Start 02/07/20 at 05:45 Furosemide (Lasix) 20 mg 1X ONCE IVP Last administered on 02/07/20at 13:12; Start 02/07/20 at 13:15; Stop 02/07/20 at 13:16; Status DC Nicardipine HCl 50 mg/Sodium Chloride 250 ml @ 25 mls/hr CONT PRN IV SEE I/O RECORD Last administered on 02/09/20at 09:20; Start 02/08/20 at 10:15 Potassium Chloride/Water 100 ml @ 100 mls/hr Q1H IV Last administered on 02/08/20at 18:17; Start 02/08/20 at 16:00; Stop 02/08/20 at 17:59; Status DC Metoprolol Tartrate (Lopressor Vial) 5 mg Q6HRS IVP Last administered on 02/09/20at 09:23; Start 02/08/20 at 18:00 Hydralazine HCl (Apresoline Inj) 10 mg PRN Q4HRS PRN IVP ELEVATED BP, SEE COMMENTS; Start 02/08/20 at 17:15 Lorazepam 40 mg/ Sodium Chloride 270 ml @ 0 mls/hr CONT PRN IV SEE PROTOCOL Last administered on 02/09/20at 09:20; Start 02/09/20 at 09:00 Sodium Bicarbonate (Sodium Bicarb Adult 8.4% Syr) 100 meq 1X ONCE IV Last administered on 02/09/20at 09:18; Start 02/09/20 at 09:00; Stop 02/09/20 at 09:03; Status DC Potassium Chloride/Water 100 ml @ 100 mls/hr 1X ONCE IV ; Start 02/09/20 at 1 1:00; Stop 02/09/20 at 11:59 Active Scripts Active Aspirin 325 Mg Tablet 325 Mg PO DAILY Fflwpb-Gyjulmdw-Vork 50-325-40 (Butalb/Acetaminophen/Caffeine) 1 Each Tablet 1-2 Tab PO PRN Q4HRS PRN MDD 6 tablets 2 Days Ondansetron Odt (Ondansetron) 4 Mg Tab.rapdis 1 Tab PO PRN Q6-8HRS PRN Doizga-Qwpmuckv-Tfsh 50-325-40 (Butalb/Acetaminophen/Caffeine) 1 Each Tablet 1 Each PO Q6HRS PRN Reported Venlafaxine Hcl Er (Venlafaxine Hcl) 150 Mg Tab.er.24 1 Tab PO BID Novolog (Insulin Aspart) 100 Unit/1 Ml Cartridge 25 Unit SQ TIDWMEALS Metformin Hcl 1,000 Mg Tablet 1,000 Mg PO BIDWMEALS Zofran (Ondansetron Hcl) 4 Mg Tablet 1 Tab PO Q6HRS Terazosin Hcl 2 Mg Capsule 2 Cap PO QHS Lantus Solostar (Insulin Glargine,Hum.rec.anlog) 100 Unit/1 Ml Insuln.pen 80 Unit SQ QHS Metoprolol Tartrate 50 Mg Tablet 1 Tab PO BID Omeprazole 20 Mg Capsule.dr 20 Mg PO BID Lisinopril 40 Mg Tablet 1 Tab PO DAILY Imitrex (Sumatriptan Succinate) 50 Mg Tablet 50 Mg PO PRN BID PRN Hydrochlorothiazide Tablet (Hydrochlorothiazide) 12.5 Mg Tablet 25 Mg PO DAILY Meclizine Hcl 25 Mg Tablet 25 Mg PO PRN TID PRN 90 Days Patanol (Olopatadine Hcl) 5 Ml Drops 1 Drop EACHEYE BID Atorvastatin Calcium 20 Mg Tablet 1 Tab PO DAILY Isosorbide Mononitrate 20 Mg Tablet 20 Mg PO BID Amlodipine Besylate 10 Mg Tablet 10 Mg PO HS Isosorbide Dinitrate 30 Mg Tablet 20 Mg PO DAILY Hydrochlorothiazide Tablet (Hydrochlorothiazide) 25 Mg Tablet 25 Mg PO DAILY Vitals/I & O Vital Sign - Last 24 Hours 02/08/20 02/08/20 02/08/20 02/08/20 11:02 11:35 11:40 12:00 Pulse 91 95 Resp 24 B/P (MAP) 183/71 (108) 178/69 (105) Pulse Ox 100 99 O2 Delivery Ventilator Ventilator 02/08/20 02/08/20 02/08/20 02/08/20 12:00 12:52 12:59 13:01 Temp 97.5 97.5 Pulse 95 95 94 Resp 24 B/P (MAP) 157/64 (95) 156/65 (95) 158/65 (96) Pulse Ox 100 100 O2 Delivery Ventilator Mechanical Ventilator Ventilator 02/08/20 02/08/20 02/08/20 02/08/20 13:57 14:05 14:20 15:09 Temp 97.3 97.3 Pulse 91 91 88 Resp B/P (MAP) 153/66 (95) 151/66 150/66 (94) 168/68 (101) Pulse Ox 100 99 O2 Delivery Ventilator Ventilator 02/08/20 02/08/20 02/08/20 02/08/20 15:35 15:45 15:47 15:48 Pulse 86 B/P (MAP) 177/72 (107) 177/79 (111) Pulse Ox 99 O2 Delivery Ventilator Mechanical Ventilator 02/08/20 02/08/20 02/08/20 02/08/20 17:05 17:59 18:16 18:24 Pulse 90 90 Resp B/P (MAP) 166/67 (100) 166/67 Pulse Ox 99 97 97 O2 Delivery Ventilator Ventilator O2 Flow Rate 15.0 02/08/20 02/08/20 02/08/20 02/08/20 18:26 18:54 19:00 19:41 Pulse 81 82 Resp 24 B/P (MAP) 156/66 (96) 164/69 (100) Pulse Ox 99 99 99 98 O2 Delivery Ventilator Ventilator Ventilator Ventilator O2 Flow Rate 15.0 02/08/20 02/08/20 02/08/20 02/08/20 20:00 20:00 20:00 20:36 Temp 98.3 98.3 Pulse 84 84 85 Resp 29 B/P (MAP) 166/66 (99) 166/66 (99) 166/65 Pulse Ox 98 O2 Delivery Mechanical Ventilator Ventilator 02/08/20 02/08/20 02/08/20 02/08/20 20:37 21:00 21:15 22:00 Pulse 85 86 84 85 Resp 31 29 30 B/P (MAP) 166/65 174/68 (103) 162/64 (96) 167/65 (99) Pulse Ox 97 99 96 O2 Delivery Ventilator Ventilator Ventilator 02/08/20 02/08/20 02/09/20 02/09/20 23:00 23:35 00:00 00:00 Pulse 92 96 Resp 31 B/P (MAP) 149/61 (90) 186/83 (117) Pulse Ox 94 99 O2 Delivery Ventilator Ventilator Mechanical Ventilator 02/09/20 02/09/20 02/09/20 02/09/20 00:00 00:20 01:00 02:00 Temp 97.7 97.7 Pulse 96 98 80 96 Resp 30 31 B/P (MAP) 186/83 (117) 185/81 162/77 (105) 174/76 (108) Pulse Ox 100 98 91 O2 Delivery Ventilator Ventilator Ventilator 02/09/20 02/09/20 02/09/20 02/09/20 02:15 03:00 03:10 04:00 Pulse 94 93 108 Resp 32 B/P (MAP) 180/77 150/65 (93) 162/66 (98) Pulse Ox 99 99 O2 Delivery Ventilator Ventilator 02/09/20 02/09/20 02/09/20 02/09/20 04:00 04:00 05:00 05:47 Temp 98.1 98.1 Pulse 108 108 117 Resp 29 24 B/P (MAP) 162/66 (98) 148/62 (90) 149/64 Pulse Ox 91 96 O2 Delivery Ventilator Mechanical Ventilator Ventilator 02/09/20 02/09/20 02/09/20 02/09/20 06:00 07:34 07:42 07:50 Temp 97.7 97.7 Pulse 93 101 Resp 30 24 B/P (MAP) 132/59 (83) 147/64 (91) Pulse Ox 90 97 97 O2 Delivery Ventilator Ventilator Mechanical Ventilator Ventilator 02/09/20 02/09/20 02/09/20 02/09/20 07:55 08:00 09:02 09:22 Pulse 103 103 103 103 Resp 24 24 B/P (MAP) 155/66 (95) 155/66 (95) 148/65 (92) 148/65 Pulse Ox 98 90 O2 Delivery Ventilator Ventilator 02/09/20 02/09/20 02/09/20 09:23 09:23 10:19 Pulse 103 103 89 Resp 26 B/P (MAP) 148/65 148/65 118/55 (76) Pulse Ox 88 O2 Delivery Ventilator Intake and Output 02/08/20 02/08/20 02/09/20 15:00 23:00 07:00 Intake Total 50 ml 2466 ml 4081 ml Output Total 675 ml 1000 ml 560 ml Balance -625 ml 1466 ml 3521 ml RENU TAI MD Feb 09, 2020 10:56
[2020-02-09] MEDS ORDERED: POTASSIUM CHLORIDE 20MEQ 100 ML IV ONE (11:00)
[2020-02-09] MEDS: VECURONIUM BROMIDE 50 MG in TOTAL VOLUME 50 ML IV PRN ×3 (12:55→17:46)
--- NOTE | 2020-02-09 13:32 | NUR ---
SS following up with discharge planning. SS reviewed pt chart and discussed with pt RN. Pt remains on the vent and COVID19 positive. SS will continue to follow for discharge planning.
[2020-02-09] MEDS: fentaNYL HIGH DOSE PCA 55 ML IV PRN (19:55)
[2020-02-09] MEDS: ATORVASTATIN CALCIUM 20 MG TABLET PO SCH (21:06)
[2020-02-09] MEDS: amLODIPine BESYLATE 10 MG TABLET PO SCH (21:07)
[2020-02-10] VITALS (27 sets, daily range): BP systolic 123–176; BP diastolic 56–66
[2020-02-10] MEDS: INSULIN LISPRO 300 UNITS/3 ML VIAL. SQ SCH ×4 (00:13→17:49)
[2020-02-10 00:23] LABS: BASE EXCESS ABG -4 mmol/L (-3-3); FIO2 ABG 100; HCO3 ABG 22 mmol/L (21-28); PCO2 ABG 47 mmHg (35-46); PO2 ABG 51 mmHg (75-108); SAT O2 ABG 82 % (92-99)
[2020-02-10] MEDS: MIDAZOLAM HCL 100 MG in IV NORMAL SALINE 100ML 100 ML IV PRN ×2 (00:25→11:52)
[2020-02-10] MEDS: IV 1/2 NORMAL SALINE 1,000 ML IV SCH (02:10)
[2020-02-10] MEDS: VECURONIUM BROMIDE 50 MG in TOTAL VOLUME 50 ML IV PRN ×3 (03:58→19:39)
[2020-02-10] MEDS: METOPROLOL TARTRATE 5 MG/5 ML VIAL. IVP SCH ×3 (05:35→17:48)
[2020-02-10] MEDS: methylPREDNISolone SOD SUCC PF 40 MG/ML VIAL. IV SCH ×3 (05:35→21:29)
[2020-02-10] MEDS: PIPERACILLIN/TAZOBACTAM 3.375 GM in IV NORMAL SALINE 50ML 50 ML IV SCH ×4 (05:36→23:59)
[2020-02-10] MEDS: LORazepam 40 MG in IV NORMAL SALINE 250ML 250 ML IV PRN ×4 (05:36→23:08)
[2020-02-10 05:58] LABS: BASO % 0 % (0-3); EOS % 0 % (0-3); HEMATOCRIT 38.7 % (39.0-53.0); HEMOGLOBIN 12.7 g/dL (13.0-17.5); LYMPH # 0.9 x10^3/uL (1.0-4.8); LYMPH % 4 % (24-48); MEAN CORPUSCULAR HEMOGLOBIN 29 pg (25-35); MEAN CORPUSCULAR HGB CONC 33 g/dL (31-37); MEAN CORPUSCULAR VOLUME 88 fL (79-100); MONO # 1.9 x10^3/uL (0.0-1.1); MONO % 9 % (0-9); NEUT # 19.1 x10^3/uL (1.8-7.7); NEUT % 87 % (31-73); PLATELET COUNT 248 x10^3/uL (140-400); RED BLOOD COUNT 4.41 x10^6/uL (4.30-5.70); RED CELL DISTRIBUTION WIDTH 14.3 % (11.5-14.5); WHITE BLOOD COUNT 21.8 x10^3/uL (4.0-11.0)
[2020-02-10 06:09] LABS: CREATININE 1.3 mg/dL (0.7-1.3); GFR 71.6; POTASSIUM 3.7 mmol/L (3.5-5.1)
[2020-02-10 06:15] LABS: CALCIUM 6.7 mg/dL (8.5-10.1)
[2020-02-10 08:22] LABS: BASE EXCESS ABG -8 mmol/L (-3-3); HCO3 ABG 18 mmol/L (21-28); PCO2 ABG 40 mmHg (35-46); PO2 ABG 52 mmHg (75-108); SAT O2 ABG 82 % (92-99)
[2020-02-10 08:25] LABS: FIO2 ABG 100%
[2020-02-10] MEDS ORDERED: SODIUM BICARB ADULT 8.4% 50 MEQ/50 ML DISP.SYRIN. IV ONE (08:45)
[2020-02-10] MEDS ORDERED: ALBUMIN HUMAN 5% 250 ML IV ONE (08:45)
[2020-02-10] MEDS: PANTOPRAZOLE IV PUSH 40 MG VIAL. IVP SCH (08:55)
[2020-02-10] MEDS: metFORMIN 500 MG TABLET PO SCH ×2 (08:55→16:35)
[2020-02-10] MEDS: INSULIN GLARGINE SYRINGE. SQ SCH ×2 (08:57→21:03)
[2020-02-10] MEDS: ENOXAPARIN 40 MG/0.4 ML SYRINGE. SQ SCH ×2 (08:57→21:04)
[2020-02-10] MEDS: LISINOPRIL 20 MG TABLET PO SCH (08:58)
[2020-02-10] MEDS: hydroCHLOROthiazide 25 MG TABLET PO SCH (08:58)
[2020-02-10] MEDS: ASPIRIN 325 MG TABLET PO SCH (08:58)
[2020-02-10] MEDS: VENLAFAXINE 75 MG TABLET. PO SCH ×2 (08:58→21:02)
[2020-02-10] MEDS: SENNOSIDES/DOCUSATE 8.6/50MG TABLET. PO SCH ×2 (08:59→21:00)
[2020-02-10] MEDS: ISOSORBIDE DINITRATE 10 MG TABLET. PO SCH ×3 (08:59→21:00)
[2020-02-10] MEDS: DOCUSATE 100 MG/10 ML SOLUTION. PO SCH (08:59)
[2020-02-10] MEDS: KETOTIFEN FUMARATE 0.025% OPHTH SOLUTION BOTTLE. OU SCH ×2 (09:00→21:00)
[2020-02-10] MEDS: ELECTROLYTE (ICU) PROTOCOL. MC SCH (09:00)
--- NOTE | 2020-02-10 09:50 | PDOC ---
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 Diabetes mellitus type 2 insulin requiring Severe anion gap metabolic acidosis Plan: isolation admit to ICU VENT SUPPORT AC mode 100%FIO2/ 10 PEEP fluid resuscitation D/C IV NS 02/09 DKA protocol Broad spectrum antibiotics for pneumonic process POS COVID 19 infection supportive measures vent management, will consult pulmonology for assistance. further recommendations based on clinical course DVT prophylaxis: heparin cardiology consult cxr 02/06 worse I>>>O will give low dose lasix s/p convalescent plasma. s/p Tocilizumab 02/03 titrate off cardene and monitor BP trend. CHK IONIZED CA++ 02/09 Suspect gram negative organism pneumonia worsening hypoxia AC mode 100%FIO2/ 9 PEEP Justicifation of Admission Dx: Justicifation of Admission Dx: Justifications for Admission: Justification of Admission Dx: Yes Sepsis: Altered Mental Status 37 MIN CC TIME Vitals Vitals Vital Signs Date Time Temp Pulse Resp B/P (MAP) Pulse Ox O2 Delivery O2 Flow Rate FiO2 02/10/20 08:59 90 156/62 02/10/20 08:09 93 Ventilator 02/10/20 07:00 26 02/10/20 04:00 98.7 98.7 Physical Exam Physical Exam SEDATED ON VENT visual exam done due to COVID pandemia EXTREMITIES: Without any cyanosis. NEUROLOGIC: Sedated PSYCHIATRIC: uanble to obtain due to acute process . SKIN: No ulcerations General: Other (sedated ) Extremities: No edema Skin: No significant lesion Labs LABS EXAM: CHEST ONE VIEW. HISTORY: COVID-19, ventilated. COMPARISON: 02/07/2020. FINDINGS: A frontal view of the chest is obtained. An endotracheal tube has its tip 4.7 cm above the cynthia. A nasogastric tube has its tip in the stomach. A right internal jugular central venous catheter has its tip in the superior cavoatrial junction. Bilateral interstitial and airspace opacities are not clearly changed. There is no pneumothorax or clear pleural effusion. The heart is not enlarged. IMPRESSION: 1. Stable bilateral interstitial and airspace opacities. Electronically signed by: Tal Bauer MD (02/08/2020 9:12 AM) [id number] DICTATED and SIGNED BY: VIKTORIYA BAUER MD DATE: 02/08/20911 Laboratory Tests Test 02/09/20 11:54 02/09/20 17:19 02/09/20 21:57 02/09/20 23:05 Glucose (Fingerstick) 300 mg/dL (70-99) 212 mg/dL (70-99) 261 mg/dL (70-99) O2 Saturation 82 % (92-99) Arterial Blood pH 7.30 (7.35-7.45) Arterial Blood pCO2 at Patient Temp 47 mmHg (35-46) Arterial Blood pO2 at Patient Temp 51 mmHg (75-108) Arterial Blood HCO3 22 mmol/L (21-28) Arterial Blood Base Excess -4 mmol/L (-3-3) FiO2 100 Test 02/10/20 00:00 02/10/20 05:40 02/10/20 05:43 02/10/20 08:15 Glucose (Fingerstick) 309 mg/dL (70-99) 295 mg/dL (70-99) White Blood Count 21.8 x10^3/uL (4.0-11.0) Red Blood Count 4.41 x10^6/uL (4.30-5.70) Hemoglobin 12.7 g/dL (13.0-17.5) Hematocrit 38.7 % (39.0-53.0) Mean Corpuscular Volume 88 fL (79-100) Mean Corpuscular Hemoglobin 29 pg (25-35) Mean Corpuscular Hemoglobin Concent 33 g/dL (31-37) Red Cell Distribution Width 14.3 % (11.5-14.5) Platelet Count 248 x10^3/uL (140-400) Neutrophils (%) (Auto) 87 % (31-73) Lymphocytes (%) (Auto) 4 % (24-48) Monocytes (%) (Auto) 9 % (0-9) Eosinophils (%) (Auto) 0 % (0-3) Basophils (%) (Auto) 0 % (0-3) Neutrophils # (Auto) 19.1 x10^3/uL (1.8-7.7) Lymphocytes # (Auto) 0.9 x10^3/uL (1.0-4.8) Monocytes # (Auto) 1.9 x10^3/uL (0.0-1.1) Eosinophils # (Auto) 0.0 x10^3/uL (0.0-0.7) Basophils # (Auto) 0.0 x10^3/uL (0.0-0.2) Sodium Level 137 mmol/L (136-145) Potassium Level 3.7 mmol/L (3.5-5.1) Chloride Level 103 mmol/L (98-107) Carbon Dioxide Level 23 mmol/L (21-32) Anion Gap 11 (6-14) Blood Urea Nitrogen 39 mg/dL (8-26) Creatinine 1.3 mg/dL (0.7-1.3) Estimated GFR (Cockcroft-Gault) 71.6 Glucose Level 320 mg/dL (70-99) Calcium Level 6.7 mg/dL (8.5-10.1) O2 Saturation 82 % (92-99) Arterial Blood pH 7.29 (7.35-7.45) Arterial Blood pCO2 at Patient Temp 40 mmHg (35-46) Arterial Blood pO2 at Patient Temp 52 mmHg (75-108) Arterial Blood HCO3 18 mmol/L (21-28) Arterial Blood Base Excess -8 mmol/L (-3-3) FiO2 100% Assessment and Plan Assessmemt and Plan Problems Medical Problems: (1) Acute metabolic encephalopathy Status: Acute (2) Acute renal insufficiency Status: Acute (3) DKA (diabetic ketoacidoses) Status: Acute (4) Pneumonia Status: Acute (5) Respiratory failure with hypoxia Status: Acute (6) Suspected 2019 novel coronavirus infection Status: Acute Comment Review of Relevant I have reviewed the following items myra (where applicable) has been applied. Labs Laboratory Tests Test 02/08/20 12:30 02/08/20 17:37 02/08/20 21:15 02/08/20 21:58 Glucose (Fingerstick) 154 mg/dL (70-99) 213 mg/dL (70-99) 339 mg/dL (70-99) 199 mg/dL (70-99) Test 02/08/20 23:41 02/09/20 06:15 02/09/20 06:19 02/09/20 07:50 Glucose (Fingerstick) 216 mg/dL (70-99) 342 mg/dL (70-99) White Blood Count 22.5 x10^3/uL (4.0-11.0) Red Blood Count 4.72 x10^6/uL (4.30-5.70) Hemoglobin 13.6 g/dL (13.0-17.5) Hematocrit 41.3 % (39.0-53.0) Mean Corpuscular Volume 88 fL (79-100) Mean Corpuscular Hemoglobin 29 pg (25-35) Mean Corpuscular Hemoglobin Concent 33 g/dL (31-37) Red Cell Distribution Width 13.9 % (11.5-14.5) Platelet Count 310 x10^3/uL (140-400) Neutrophils (%) (Auto) 86 % (31-73) Lymphocytes (%) (Auto) 6 % (24-48) Monocytes (%) (Auto) 6 % (0-9) Eosinophils (%) (Auto) 2 % (0-3) Basophils (%) (Auto) 0 % (0-3) Neutrophils # (Auto) 19.4 x10^3/uL (1.8-7.7) Lymphocytes # (Auto) 1.2 x10^3/uL (1.0-4.8) Monocytes # (Auto) 1.4 x10^3/uL (0.0-1.1) Eosinophils # (Auto) 0.4 x10^3/uL (0.0-0.7) Basophils # (Auto) 0.0 x10^3/uL (0.0-0.2) Sodium Level 137 mmol/L (136-145) Potassium Level 3.3 mmol/L (3.5-5.1) Chloride Level 102 mmol/L (98-107) Carbon Dioxide Level 21 mmol/L (21-32) Anion Gap 14 (6-14) Blood Urea Nitrogen 32 mg/dL (8-26) Creatinine 1.3 mg/dL (0.7-1.3) Estimated GFR (Cockcroft-Gault) 71.6 BUN/Creatinine Ratio 25 (6-20) Glucose Level 361 mg/dL (70-99) Calcium Level 7.0 mg/dL (8.5-10.1) Total Bilirubin 0.4 mg/dL (0.2-1.0) Aspartate Amino Transf (AST/SGOT) 43 U/L (15-37) Alanine Aminotransferase (ALT/SGPT) 26 U/L (16-63) Alkaline Phosphatase 177 U/L (46-116) Total Protein 5.4 g/dL (6.4-8.2) Albumin 1.8 g/dL (3.4-5.0) Albumin/Globulin Ratio 0.5 (1.0-1.7) O2 Saturation 84 % (92-99) Arterial Blood pH 7.25 (7.35-7.45) Arterial Blood pCO2 at Patient Temp 48 mmHg (35-46) Arterial Blood pO2 at Patient Temp 56 mmHg (75-108) Arterial Blood HCO3 21 mmol/L (21-28) Arterial Blood Base Excess -7 mmol/L (-3-3) FiO2 100 Test 02/09/20 11:54 02/09/20 17:19 02/09/20 21:57 02/09/20 23:05 Glucose (Fingerstick) 300 mg/dL (70-99) 212 mg/dL (70-99) 261 mg/dL (70-99) O2 Saturation 82 % (92-99) Arterial Blood pH 7.30 (7.35-7.45) Arterial Blood pCO2 at Patient Temp 47 mmHg (35-46) Arterial Blood pO2 at Patient Temp 51 mmHg (75-108) Arterial Blood HCO3 22 mmol/L (21-28) Arterial Blood Base Excess -4 mmol/L (-3-3) FiO2 100 Test 02/10/20 00:00 02/10/20 05:40 02/10/20 05:43 02/10/20 08:15 Glucose (Fingerstick) 309 mg/dL (70-99) 295 mg/dL (70-99) White Blood Count 21.8 x10^3/uL (4.0-11.0) Red Blood Count 4.41 x10^6/uL (4.30-5.70) Hemoglobin 12.7 g/dL (13.0-17.5) Hematocrit 38.7 % (39.0-53.0) Mean Corpuscular Volume 88 fL (79-100) Mean Corpuscular Hemoglobin 29 pg (25-35) Mean Corpuscular Hemoglobin Concent 33 g/dL (31-37) Red Cell Distribution Width 14.3 % (11.5-14.5) Platelet Count 248 x10^3/uL (140-400) Neutrophils (%) (Auto) 87 % (31-73) Lymphocytes (%) (Auto) 4 % (24-48) Monocytes (%) (Auto) 9 % (0-9) Eosinophils (%) (Auto) 0 % (0-3) Basophils (%) (Auto) 0 % (0-3) Neutrophils # (Auto) 19.1 x10^3/uL (1.8-7.7) Lymphocytes # (Auto) 0.9 x10^3/uL (1.0-4.8) Monocytes # (Auto) 1.9 x10^3/uL (0.0-1.1) Eosinophils # (Auto) 0.0 x10^3/uL (0.0-0.7) Basophils # (Auto) 0.0 x10^3/uL (0.0-0.2) Sodium Level 137 mmol/L (136-145) Potassium Level 3.7 mmol/L (3.5-5.1) Chloride Level 103 mmol/L (98-107) Carbon Dioxide Level 23 mmol/L (21-32) Anion Gap 11 (6-14) Blood Urea Nitrogen 39 mg/dL (8-26) Creatinine 1.3 mg/dL (0.7-1.3) Estimated GFR (Cockcroft-Gault) 71.6 Glucose Level 320 mg/dL (70-99) Calcium Level 6.7 mg/dL (8.5-10.1) O2 Saturation 82 % (92-99) Arterial Blood pH 7.29 (7.35-7.45) Arterial Blood pCO2 at Patient Temp 40 mmHg (35-46) Arterial Blood pO2 at Patient Temp 52 mmHg (75-108) Arterial Blood HCO3 18 mmol/L (21-28) Arterial Blood Base Excess -8 mmol/L (-3-3) FiO2 100% Laboratory Tests Test 02/09/20 11:54 02/09/20 17:19 02/09/20 21:57 02/09/20 23:05 Glucose (Fingerstick) 300 mg/dL (70-99) 212 mg/dL (70-99) 261 mg/dL (70-99) O2 Saturation 82 % (92-99) Arterial Blood pH 7.30 (7.35-7.45) Arterial Blood pCO2 at Patient Temp 47 mmHg (35-46) Arterial Blood pO2 at Patient Temp 51 mmHg (75-108) Arterial Blood HCO3 22 mmol/L (21-28) Arterial Blood Base Excess -4 mmol/L (-3-3) FiO2 100 Test 02/10/20 00:00 02/10/20 05:40 02/10/20 05:43 02/10/20 08:15 Glucose (Fingerstick) 309 mg/dL (70-99) 295 mg/dL (70-99) White Blood Count 21.8 x10^3/uL (4.0-11.0) Red Blood Count 4.41 x10^6/uL (4.30-5.70) Hemoglobin 12.7 g/dL (13.0-17.5) Hematocrit 38.7 % (39.0-53.0) Mean Corpuscular Volume 88 fL (79-100) Mean Corpuscular Hemoglobin 29 pg (25-35) Mean Corpuscular Hemoglobin Concent 33 g/dL (31-37) Red Cell Distribution Width 14.3 % (11.5-14.5) Platelet Count 248 x10^3/uL (140-400) Neutrophils (%) (Auto) 87 % (31-73) Lymphocytes (%) (Auto) 4 % (24-48) Monocytes (%) (Auto) 9 % (0-9) Eosinophils (%) (Auto) 0 % (0-3) Basophils (%) (Auto) 0 % (0-3) Neutrophils # (Auto) 19.1 x10^3/uL (1.8-7.7) Lymphocytes # (Auto) 0.9 x10^3/uL (1.0-4.8) Monocytes # (Auto) 1.9 x10^3/uL (0.0-1.1) Eosinophils # (Auto) 0.0 x10^3/uL (0.0-0.7) Basophils # (Auto) 0.0 x10^3/uL (0.0-0.2) Sodium Level 137 mmol/L (136-145) Potassium Level 3.7 mmol/L (3.5-5.1) Chloride Level 103 mmol/L (98-107) Carbon Dioxide Level 23 mmol/L (21-32) Anion Gap 11 (6-14) Blood Urea Nitrogen 39 mg/dL (8-26) Creatinine 1.3 mg/dL (0.7-1.3) Estimated GFR (Cockcroft-Gault) 71.6 Glucose Level 320 mg/dL (70-99) Calcium Level 6.7 mg/dL (8.5-10.1) O2 Saturation 82 % (92-99) Arterial Blood pH 7.29 (7.35-7.45) Arterial Blood pCO2 at Patient Temp 40 mmHg (35-46) Arterial Blood pO2 at Patient Temp 52 mmHg (75-108) Arterial Blood HCO3 18 mmol/L (21-28) Arterial Blood Base Excess -8 mmol/L (-3-3) FiO2 100% Microbiology 02/02/20 Blood Culture - Final, Complete NO GROWTH AFTER 5 DAYS Medications Current Medications Sodium Chloride 1,000 ml @ 1,000 mls/hr 1X ONCE IV Last administered on 02/02/20at 16:48; Start 02/02/20 at 15:45; Stop 02/02/20 at 16:44; Status DC Etomidate (Amidate) 20 mg 1X ONCE IV Last administered on 02/02/20at 15:54; Start 02/02/20 at 15:45; Stop 02/02/20 at 15:52; Status DC Rocuronium [place] (Zemuron) 50 mg 1X ONCE IV Last administered on 02/02/20at 15:55; Start 02/02/20 at 15:45; Stop 02/02/20 at 15:52; Status DC Propofol 100 ml @ 0 mls/hr CONT PRN IV SEE PROTOCOL Last administered on 02/02/20at 16:33; Start 02/02/20 at 15:45; Stop 02/02/20 at 17:44; Status DC Chlorhexidine Gluconate (Peridex) 15 ml BID MM ; Start 02/02/20 at 21:00; Stop 02/02/20 at 17:39; Status DC Fentanyl Citrate (Fentanyl 2ml Vial) 100 mcg 1X ONCE IV Last administered on 02/02/20at 16:34; Start 02/02/20 at 16:15; Stop 02/02/20 at 16:16; Status DC Sodium Chloride 1,000 ml @ 1,000 mls/hr 1X ONCE IV Last administered on 02/02/20at 16:15; Start 02/02/20 at 16:15; Stop 02/02/20 at 17:20; Status DC Aspirin (Aspirin Rectal Supp) 300 mg 1X ONCE IN Last administered on 02/02/20at 16:35; Start 02/02/20 at 16:15; Stop 02/02/20 at 16:17; Status DC Acetaminophen (Tylenol) 650 mg PRN Q6HRS PRN PO Headaches, Temp > 101.5'; Start 02/02/20 at 16:15 Prochlorperazine Edisylate (Compazine) 5 mg PRN Q6HRS PRN IVP NAUSEA/VOMITING; Start 02/02/20 at 16:15 Prochlorperazine (Compazine) 25 mg PRN Q12HR PRN IN NAUSEA/VOMITING; Start 02/02/20 at 16:15 Info (Icu Electrolyte Protocol) 1 ea DAILY MC Last administered on 02/09/20at 09:00; Start 02/03/20 at 09:00 Heparin Sodium (Porcine) (Heparin Sodium) 5,000 unit Q8HRS SQ Last administered on 02/04/20at 05:32; Start 02/02/20 at 22:00; Stop 02/04/20 at 14:45; Status DC Sodium Chloride (Normal Saline Flush) 3 ml QSHIFT PRN IV AFTER MEDS AND BLOOD DRAWS; Start 02/02/20 at 16:15 Oxycodone/ Acetaminophen (Percocet 5/325) 1 tab PRN Q4HRS PRN PO MILD PAIN, 1ST CHOICE; Start 02/02/20 at 16:15 Morphine Sulfate (Morphine Sulfate) 2 mg PRN Q1HR PRN IV PAIN; Start 02/02/20 at 16:15 Senna/Docusate Sodium (Senna Plus) 1 tab BID PO Last administered on 02/09/20at 21:06; Start 02/02/20 at 21:00 Docusate Sodium (Colace) 100 mg BID PO ; Start 02/02/20 at 21:00; Stop 02/04/20 at 19:30; Status DC Lactulose (Lactulose) 20 gm PRN Q12HR PRN PO CONSTIPATION; Start 02/02/20 at 16:15 Amlodipine Besylate (Norvasc) 10 mg HS PO Last administered on 02/09/20at 21:07; Start 02/02/20 at 21:00 Aspirin (Grover Aspirin) 325 mg DAILY PO Last administered on 02/10/20at 08:58; Start 02/03/20 at 09:00 Atorvastatin Calcium (Lipitor) 20 mg QHS PO Last administered on 02/09/20at 21:06; Start 02/02/20 at 21:00 Acetaminophen/ Butalbital/ Caffeine (Fioricet) 1 tab PRN Q6HRS PRN PO MIGRAINE HEADACHE- 1ST CHOICE; Start 02/02/20 at 16:15 Hydrochlorothiazide (Hydrodiuril) 25 mg DAILY PO Last administered on 02/10/20at 08:58; Start 02/03/20 at 09:00 Isosorbide Dinitrate (Isordil) 10 mg TID PO Last administered on 02/10/20at 08:59; Start 02/02/20 at 21:00 Lisinopril (Prinivil) 40 mg DAILY PO Last administered on 02/10/20at 08:58; Start 02/03/20 at 09:00 Metoprolol Tartrate (Lopressor) 50 mg BID PO Last administered on 02/07/20at 21 :21; Start 02/02/20 at 21:00; Stop 02/08/20 at 17:13; Status DC Non-Formulary Medication (Hydrochlorothiazide (Hydrochlorothiazide Tablet)) 25 mg DAILY PO ; Start 02/03/20 at 09:00; Status UNV Non-Formulary Medication (Insulin Aspart (Novolog)) 25 unit TIDWMEALS SQ ; Start 02/02/20 at 17:00; Status UNV Non-Formulary Medication (Insulin Glargine,Hum.rec.anlog (Lantus Solostar)) 80 unit QHS SQ ; Start 02/02/20 at 21:00; Status UNV Non-Formulary Medication (Isosorbide Dinitrate ) 20 mg DAILY PO ; Start 02/03/20 at 09:00; Status UNV Meclizine HCl (Antivert) 25 mg PRN Q6HRS PRN PO NAUSEA- 2ND CHOICE; Start 02/02/20 at 17:45 Metformin HCl (Glucophage) 1,000 mg BIDWMEALS PO Last administered on 02/10/20at 08:55; Start 02/02/20 at 17:00 Ketotifen Fumarate (Zaditor) 1 drop BID OU Last administered on 02/09/20at 21:00; Start 02/02/20 at 21:00 Pantoprazole Sodium (PROTONIX VIAL for IV PUSH) 40 mg DAILYAC IVP Last administered on 02/10/20at 08:55; Start 02/03/20 at 07:30 Ondansetron HCl (Zofran Odt) 4 mg PRN Q8HRS PRN PO NAUSEA/VOMITING, 1ST CHOICE PO; Start 02/02/20 at 17:45 Sumatriptan Succinate (Imitrex) 50 mg PRN BID PRN PO MIGRAINE HEADACHE; Start 02/02/20 at 17:45 Non-Formulary Medication (Terazosin Hcl ) 2 cap QHS PO ; Start 02/02/20 at 21:00; Status UNV Venlafaxine HCl (Effexor) 150 mg BID PO Last administered on 02/10/20at 08:58; Start 02/02/20 at 21:00 Fentanyl Citrate 30 ml @ 0 mls/hr CONT PRN IV SEE PROTOCOL Last administered on 02/06/20at 05:48; Start 02/02/20 at 16:30; Stop 02/06/20 at 10:59; Status DC Propofol 100 ml @ 0 mls/hr CONT PRN IV SEE PROTOCOL Last administered on 02/09/20at 17:03; Start 02/02/20 at 16:30 Fentanyl Citrate (Fentanyl 2ml Vial) 25 mcg PRN Q1HR PRN IV SEE COMMENTS; Start 02/02/20 at 16:30 Fentanyl Citrate (Fentanyl 2ml Vial) 50 mcg PRN Q1HR PRN IV SEE COMMENTS; Start 02/02/20 at 16:30 Chlorhexidine Gluconate (Peridex) 15 ml BID MM Last administered on 02/07/20at 21:20; Start 02/02/20 at 21:00; Stop 02/08/20 at 18:56; Status DC Morphine Sulfate (Morphine Sulfate) 2 mg PRN Q1HR PRN IV SEE COMMENTS.; Start 02/02/20 at 16:30 Morphine Sulfate (Morphine Sulfate) 4 mg PRN Q1HR PRN IV SEE COMMENTS.; Start 02/02/20 at 16:30 Midazolam HCl (Versed) 1 mg PRN Q30MIN PRN IV SEE COMMENTS.; Start 02/02/20 at 16:30 Piperacillin Sod/ Tazobactam Sod 4.5 gm/Sodium Chloride 100 ml @ 200 mls/hr 1X ONCE IV Last administered on 02/02/20at 17:03; Start 02/02/20 at 16:30; Stop 02/02/20 at 16:59; Status DC Azithromycin 250 ml @ 250 mls/hr 1X ONCE IV Last administered on 02/02/20at 17:40; Start 02/02/20 at 16:30; Stop 02/02/20 at 17:34; Status DC Dexamethasone Sodium Phosphate (Decadron) 10 mg 1X ONCE IVP Last administered on 02/02/20at 16:54; Start 02/02/20 at 16:30; Stop 02/02/20 at 16:33; Status DC Midazolam HCl (Versed) 5 mg 1X ONCE IV Last administered on 02/02/20at 16:35; Start 02/02/20 at 16:45; Stop 02/02/20 at 16:46; Status DC Insulin Human Regular (HumuLIN R VIAL) 8 unit 1X ONCE SQ Last administered on 02/02/20at 16:51; Start 02/02/20 at 16:45; Stop 02/02/20 at 16:46; Status DC Sodium Chloride 1,000 ml @ 500 mls/hr Q2H IV Last administered on 02/02/20at 18:33; Start 02/02/20 at 16:36; Stop 02/02/20 at 18:35; Status DC Insulin Human Regular 100 unit/ Sodium Chloride 101 ml @ 0 mls/hr CONT PRN PRN IV PER PROTOCOL Last administered on 02/03/20at 02:08; Start 02/02/20 at 16:45; Stop 02/03/20 at 02:31; Status DC Insulin Human Regular 100 ml @ As Directed STK-MED ONCE IV ; Start 02/02/20 at 16:41; Stop 02/02/20 at 16:41; Status DC Etomidate (Amidate) 20 mg 1X ONCE IV ; Start 02/02/20 at 17:15; Stop 02/02/20 at 17:22; Status DC Rocuronium [place] (Zemuron) 50 mg 1X ONCE IV ; Start 02/02/20 at 17:15; Stop 02/02/20 at 17:34; Status DC Piperacillin Sod/ Tazobactam Sod 3.375 gm/Sodium Chloride 50 ml @ 100 mls/hr Q6HRS IV Last administered on 02/10/20at 05:36; Start 02/03/20 at 00:00 Sodium Chloride 1,000 ml @ 250 mls/hr Q4H IV Last administered on 02/02/20at 18 :43; Start 02/02/20 at 18:45; Stop 02/02/20 at 22:40; Status DC Pantoprazole Sodium (PROTONIX VIAL for IV PUSH) 40 mg 1X ONCE IVP Last administered on 02/02/20at 22:47; Start 02/02/20 at 20:15; Stop 02/02/20 at 20:40; Status DC Labetalol HCl (Normodyne Iv Push) 10 mg PRN Q4HRS PRN IVP HYPERTENSION, 2ND CHOICE Last administered on 02/04/20at 05:20; Start 02/02/20 at 20:15 Dextrose/Sodium Chloride 1,000 ml @ 250 mls/hr Q4H IV Last administered on 02/03/20at 07:59; Start 02/02/20 at 22:45; Stop 02/03/20 at 11:23; Status DC Insulin Human Regular 100 unit/ Sodium Chloride 101 ml @ 0 mls/hr CONT PRN IV SEE I/O RECORD; Start 02/03/20 at 02:15 Potassium Chloride/Water 100 ml @ 100 mls/hr PRN Q1HR PRN IV SEE COMMENTS; Start 02/03/20 at 05:00 Potassium Chloride/Water 100 ml @ 100 mls/hr Q1H IV Last administered on 02/03/20at 07:58; Start 02/03/20 at 05:00; Stop 02/03/20 at 08:59; Status DC Insulin Glargine (Lantus Syringe) 18 unit BID SQ Last administered on 02/10/20at 08:57; Start 02/03/20 at 09:00 Insulin Human Lispro (HumaLOG) 0-9 UNITS Q6HRS SQ Last administered on 02/10/20at 06:06; Start 02/03/20 at 12:00 Dextrose (Dextrose 50%-Water Syringe) 12.5 gm PRN Q15MIN PRN IV SEE COMMENTS; Start 02/03/20 at 06:15 Sodium Chloride 1,000 ml @ 125 mls/hr 1X ONCE IV Last administered on 02/03/20at 12:01; Start 02/03/20 at 11:30; Stop 02/03/20 at 19:29; Status DC Vecuronium [place] (Norcuron Bolus) 10 mg PRN Q6HRS PRN IV SEDATION Last administered on 02/04/20at 12:09; Start 02/04/20 at 07:30; Stop 02/04/20 at 19:30; Status DC Potassium Chloride/Water 100 ml @ 100 mls/hr 1X ONCE IV Last administered on 02/04/20at 10:04; Start 02/04/20 at 10:00; Stop 02/04/20 at 10:59; Status DC Tocilizumab 400 mg/Sodium Chloride 100 ml @ 100 mls/hr 1X ONCE IV Last administered on 02/04/20at 14:53; Start 02/04/20 at 13:00; Stop 02/04/20 at 13:59; Status DC Enoxaparin Sodium (Lovenox 40mg Syringe) 40 mg BID SQ Last administered on 02/10/20at 08:57; Start 02/04/20 at 21:00 Sodium Chloride 1,000 ml @ 125 mls/hr Q8H IV Last administered on 02/10/20at 02:10; Start 02/04/20 at 16:00; Stop 02/10/20 at 08:45; Status DC Vecuronium [place] (Norcuron Bolus) 10 mg PRN Q1HR PRN IV SEDATION Last administered on 02/09/20at 12:12; Start 02/04/20 at 19:30 Docusate Sodium (Colace Solution) 100 mg DAILY PO Last administered on 02/07/20at 08:50; Start 02/05/20 at 09:00 Norepinephrine Bitartrate 8 mg/ Dextrose 258 ml @ 15.519 mls/ hr CONT PRN IV PER PROTOCOL Last administered on 02/07/20at 02:51; Start 02/04/20 at 22:30 Potassium Bicarbonate (Potassium Effervescent Tablet) 40 meq 1X ONCE PO Last administered on 02/05/20at 08:26; Start 02/05/20 at 07:45; Stop 02/05/20 at 07: 46; Status DC Midazolam HCl 100 mg/Sodium Chloride 100 ml @ 1 mls/hr CONT PRN IV . Last administered on 02/10/20at 00:25; Start 02/05/20 at 10:00 Methylprednisolone Sodium Succinate (SOLU-Medrol 40MG VIAL) 40 mg Q8HRS IV Last administered on 02/10/20at 05:35; Start 02/05/20 at 14:00 Hydralazine HCl (Apresoline Inj) 10 mg PRN Q4HRS PRN IVP ELEVATED BP, SEE COMMENTS Last administered on 02/09/20at 02:15; Start 02/05/20 at 17:00; Stop 02/09/20 at 09:08; Status DC Fentanyl Citrate 55 ml @ 1.98 mls/hr CONT PRN IV SEE PROTOCOL Last administered on 02/09/20at 19:55; Start 02/06/20 at 11:00 Furosemide (Lasix) 20 mg 1X ONCE IVP Last administered on 02/06/20at 14:08; Start 02/06/20 at 14:00; Stop 02/06/20 at 14:01; Status DC Phenylephrine HCl 50 mg/Sodium Chloride 255 ml @ 13.372 mls/ hr CONT PRN IV SEE I/O RECORD Last administered on 02/07/20at 05:51; Start 02/07/20 at 05:45 Furosemide (Lasix) 20 mg 1X ONCE IVP Last administered on 02/07/20at 13:12; Start 02/07/20 at 13:15; Stop 02/07/20 at 13:16; Status DC Nicardipine HCl 50 mg/Sodium Chloride 250 ml @ 25 mls/hr CONT PRN IV SEE I/O RECORD Last administered on 02/10/20at 05:36; Start 02/08/20 at 10:15 Potassium Chloride/Water 100 ml @ 100 mls/hr Q1H IV Last administered on 02/08/20at 18:17; Start 02/08/20 at 16:00; Stop 02/08/20 at 17:59; Status DC Metoprolol Tartrate (Lopressor Vial) 5 mg Q6HRS IVP Last administered on 02/10/20at 05:35; Start 02/08/20 at 18:00 Hydralazine HCl (Apresoline Inj) 10 mg PRN Q4HRS PRN IVP ELEVATED BP, SEE COMMENTS; Start 02/08/20 at 17:15 Lorazepam 40 mg/ Sodium Chloride 270 ml @ 0 mls/hr CONT PRN IV SEE PROTOCOL Last administered on 02/10/20at 05:36; Start 02/09/20 at 09:00 Sodium Bicarbonate (Sodium Bicarb Adult 8.4% Syr) 100 meq 1X ONCE IV Last administered on 02/09/20at 09:18; Start 02/09/20 at 09:00; Stop 02/09/20 at 09:03; Status DC Potassium Chloride/Water 100 ml @ 100 mls/hr 1X ONCE IV Last administered on 02/09/20at 11:35; Start 02/09/20 at 11:00; Stop 02/09/20 at 11:59; Status DC Vecuronium [place] 50 mg/ Miscellaneous 50 ml @ 4.464 mls/ hr CONT PRN IV SEE I/O RECORD Last administered on 02/10/20at 03:58; Start 02/09/20 at 12:15 Albumin Human 250 ml @ 62.5 mls/hr 1X ONCE IV Last administered on 02/10/20at 08:56; Start 02/10/20 at 08:45; Stop 02/10/20 at 12:44 Sodium Bicarbonate (Sodium Bicarb Adult 8.4% Syr) 100 meq 1X ONCE IV Last administered on 02/10/20at 08:56; Start 02/10/20 at 08:45; Stop 02/10/20 at 08:46; Status DC Furosemide (Lasix) 40 mg 1X ONCE IVP ; Start 02/10/20 at 10:45; Stop 02/10/20 at 10:46 Active Scripts Active Aspirin 325 Mg Tablet 325 Mg PO DAILY [id number] 50-325-40 (Butalb/Acetaminophen/Caffeine) 1 Each Tablet 1-2 Tab PO PRN Q4HRS PRN MDD 6 tablets 2 Days Ondansetron Odt (Ondansetron) 4 Mg Tab.rapdis 1 Tab PO PRN Q6-8HRS PRN [id number]-[id number] 50-325-40 (Butalb/Acetaminophen/Caffeine) 1 Each Tablet 1 Each PO Q6HRS PRN Reported Venlafaxine Hcl Er (Venlafaxine Hcl) 150 Mg Tab.er.24 1 Tab PO BID Novolog (Insulin Aspart) 100 Unit/1 Ml Cartridge 25 Unit SQ TIDWMEALS Metformin Hcl 1,000 Mg Tablet 1,000 Mg PO BIDWMEALS Zofran (Ondansetron Hcl) 4 Mg Tablet 1 Tab PO Q6HRS Terazosin Hcl 2 Mg Capsule 2 Cap PO QHS Lantus Solostar (Insulin Glargine,Hum.rec.anlog) 100 Unit/1 Ml Insuln.pen 80 Unit SQ QHS Metoprolol Tartrate 50 Mg Tablet 1 Tab PO BID Omeprazole 20 Mg Capsule.dr 20 Mg PO BID Lisinopril 40 Mg Tablet 1 Tab PO DAILY Imitrex (Sumatriptan Succinate) 50 Mg Tablet 50 Mg PO PRN BID PRN Hydrochlorothiazide Tablet (Hydrochlorothiazide) 12.5 Mg Tablet 25 Mg PO DAILY Meclizine Hcl 25 Mg Tablet 25 Mg PO PRN TID PRN 90 Days Patanol (Olopatadine Hcl) 5 Ml Drops 1 Drop EACHEYE BID Atorvastatin Calcium 20 Mg Tablet 1 Tab PO DAILY Isosorbide Mononitrate 20 Mg Tablet 20 Mg PO BID Amlodipine Besylate 10 Mg Tablet 10 Mg PO HS Isosorbide Dinitrate 30 Mg Tablet 20 Mg PO DAILY Hydrochlorothiazide Tablet (Hydrochlorothiazide) 25 Mg Tablet 25 Mg PO DAILY Vitals/I & O Vital Sign - Last 24 Hours 02/09/20 02/09/20 02/09/20 02/09/20 10:19 11:00 11:36 12:00 Pulse 89 92 88 Resp B/P (MAP) 118/55 (76) 140/62 (88) 124/59 (80) Pulse Ox 88 94 86 O2 Delivery Ventilator Ventilator Ventilator 02/09/20 02/09/20 02/09/20 02/09/20 12:24 12:26 12:30 13:18 Temp 97.7 97.7 Pulse 83 108 83 Resp B/P (MAP) 125/58 (80) 162/66 (98) 130/59 (82) Pulse Ox 98 94 O2 Delivery Ventilator Mechanical Ventilator Ventilator 02/09/20 02/09/20 02/09/20 02/09/20 14:01 14:02 15:10 15:34 Pulse 83 83 80 B/P (MAP) 130/59 132/60 (84) 119/57 (77) 122/57 (78) Pulse Ox 95 95 O2 Delivery Ventilator Ventilator 02/09/20 02/09/20 02/09/20 02/09/20 15:40 16:09 16:12 17:03 Pulse 77 78 B/P (MAP) 132/61 (84) 146/63 Pulse Ox 95 O2 Delivery Ventilator Mechanical Ventilator 02/09/20 02/09/20 02/09/20 02/09/20 18:00 18:14 19:00 20:00 Pulse 73 78 Resp B/P (MAP) 138/64 (88) 152/65 (94) Pulse Ox 93 93 93 O2 Delivery Ventilator Ventilator Ventilator Mechanical Ventilator 02/09/20 02/09/20 02/09/20 02/09/20 20:00 20:00 20:03 21:00 Temp 97.5 97.5 Pulse 83 83 83 B/P (MAP) 160/65 (96) 160/65 (96) 164/69 (100) Pulse Ox 93 93 92 O2 Delivery Ventilator Ventilator Ventilator 02/09/20 02/09/20 02/09/20 02/09/20 21:06 21:07 21:15 22:00 Pulse 83 83 82 80 B/P (MAP) 162/69 162/69 164/68 (100) 154/66 (95) Pulse Ox 92 90 O2 Delivery Ventilator Ventilator 02/09/20 02/09/20 02/09/20 02/10/20 23:00 23:42 23:46 00:00 Pulse 77 77 Resp B/P (MAP) 167/68 (101) 138/60 Pulse Ox 91 91 O2 Delivery Ventilator Ventilator Mechanical Ventilator 02/10/20 02/10/20 02/10/20 02/10/20 00:00 00:00 01:00 01:15 Temp 94.6 94.6 Pulse 71 71 73 76 Resp B/P (MAP) 126/60 (82) 126/60 (82) 125/60 (81) 135/63 (87) Pulse Ox 92 93 93 O2 Delivery Ventilator Ventilator Ventilator 02/10/20 02/10/20 02/10/20 02/10/20 01:45 02:00 03:00 04:00 Temp 97.6 98.7 97.6 98.7 Pulse 79 80 85 91 Resp 26 26 B/P (MAP) 139/65 (89) 140/65 (90) 139/65 (89) 143/66 (91) Pulse Ox 92 92 93 93 O2 Delivery Ventilator Ventilator Ventilator Ventilator 02/10/20 02/10/20 02/10/20 02/10/20 04:00 04:00 04:03 05:00 Pulse 91 92 Resp B/P (MAP) 143/66 (91) 138/62 (87) Pulse Ox 94 95 O2 Delivery Mechanical Ventilator Ventilator Ventilator 02/10/20 02/10/20 02/10/20 02/10/20 05:35 06:00 07:00 08:09 Pulse 94 79 90 Resp B/P (MAP) 142/63 142/58 (86) 156/62 (93) Pulse Ox 94 94 93 O2 Delivery Ventilator Ventilator Ventilator 02/10/20 02/10/20 08:58 08:59 Pulse 90 90 B/P (MAP) 156/62 156/62 Intake and Output 02/09/20 02/09/20 02/10/20 15:00 23:00 07:00 Intake Total 350 ml 3701 ml 4035 ml Output Total 730 ml 510 ml 460 ml Balance -380 ml 3191 ml 3575 ml RENU TAI MD Feb 10, 2020 09:50
--- NOTE | 2020-02-10 10:41 | PDOC ---
PULMONARY PROGRESS NOTES Subjective on vent sedated, versed, PROPOFOL fentanyl, AC mode 100%FIO2/ 13 PEEP / cardine drip Vitals Vital Signs Date Time Temp Pulse Resp B/P (MAP) Pulse Ox O2 Delivery O2 Flow Rate FiO2 02/10/20 10:00 96 26 134/56 (82) 94 Ventilator 02/10/20 08:00 98.9 98.9 Comments ros unable to obtain sedated on vent visual exam done due to COVID pandemia nc at appears comfortable no paradoxical abd motion ekg nsr no rash AC mode, no soa sedated/no edema Labs Laboratory Tests Test 02/08/20 12:30 02/08/20 17:37 02/08/20 21:15 02/08/20 21:58 Glucose (Fingerstick) 154 mg/dL (70-99) 213 mg/dL (70-99) 339 mg/dL (70-99) 199 mg/dL (70-99) Test 02/08/20 23:41 02/09/20 06:15 02/09/20 06:19 02/09/20 07:50 Glucose (Fingerstick) 216 mg/dL (70-99) 342 mg/dL (70-99) White Blood Count 22.5 x10^3/uL (4.0-11.0) Red Blood Count 4.72 x10^6/uL (4.30-5.70) Hemoglobin 13.6 g/dL (13.0-17.5) Hematocrit 41.3 % (39.0-53.0) Mean Corpuscular Volume 88 fL (79-100) Mean Corpuscular Hemoglobin 29 pg (25-35) Mean Corpuscular Hemoglobin Concent 33 g/dL (31-37) Red Cell Distribution Width 13.9 % (11.5-14.5) Platelet Count 310 x10^3/uL (140-400) Neutrophils (%) (Auto) 86 % (31-73) Lymphocytes (%) (Auto) 6 % (24-48) Monocytes (%) (Auto) 6 % (0-9) Eosinophils (%) (Auto) 2 % (0-3) Basophils (%) (Auto) 0 % (0-3) Neutrophils # (Auto) 19.4 x10^3/uL (1.8-7.7) Lymphocytes # (Auto) 1.2 x10^3/uL (1.0-4.8) Monocytes # (Auto) 1.4 x10^3/uL (0.0-1.1) Eosinophils # (Auto) 0.4 x10^3/uL (0.0-0.7) Basophils # (Auto) 0.0 x10^3/uL (0.0-0.2) Sodium Level 137 mmol/L (136-145) Potassium Level 3.3 mmol/L (3.5-5.1) Chloride Level 102 mmol/L (98-107) Carbon Dioxide Level 21 mmol/L (21-32) Anion Gap 14 (6-14) Blood Urea Nitrogen 32 mg/dL (8-26) Creatinine 1.3 mg/dL (0.7-1.3) Estimated GFR (Cockcroft-Gault) 71.6 BUN/Creatinine Ratio 25 (6-20) Glucose Level 361 mg/dL (70-99) Calcium Level 7.0 mg/dL (8.5-10.1) Total Bilirubin 0.4 mg/dL (0.2-1.0) Aspartate Amino Transf (AST/SGOT) 43 U/L (15-37) Alanine Aminotransferase (ALT/SGPT) 26 U/L (16-63) Alkaline Phosphatase 177 U/L (46-116) Total Protein 5.4 g/dL (6.4-8.2) Albumin 1.8 g/dL (3.4-5.0) Albumin/Globulin Ratio 0.5 (1.0-1.7) O2 Saturation 84 % (92-99) Arterial Blood pH 7.25 (7.35-7.45) Arterial Blood pCO2 at Patient Temp 48 mmHg (35-46) Arterial Blood pO2 at Patient Temp 56 mmHg (75-108) Arterial Blood HCO3 21 mmol/L (21-28) Arterial Blood Base Excess -7 mmol/L (-3-3) FiO2 100 Test 02/09/20 11:54 02/09/20 17:19 02/09/20 21:57 02/09/20 23:05 Glucose (Fingerstick) 300 mg/dL (70-99) 212 mg/dL (70-99) 261 mg/dL (70-99) O2 Saturation 82 % (92-99) Arterial Blood pH 7.30 (7.35-7.45) Arterial Blood pCO2 at Patient Temp 47 mmHg (35-46) Arterial Blood pO2 at Patient Temp 51 mmHg (75-108) Arterial Blood HCO3 22 mmol/L (21-28) Arterial Blood Base Excess -4 mmol/L (-3-3) FiO2 100 Test 02/10/20 00:00 02/10/20 05:40 02/10/20 05:43 02/10/20 08:15 Glucose (Fingerstick) 309 mg/dL (70-99) 295 mg/dL (70-99) White Blood Count 21.8 x10^3/uL (4.0-11.0) Red Blood Count 4.41 x10^6/uL (4.30-5.70) Hemoglobin 12.7 g/dL (13.0-17.5) Hematocrit 38.7 % (39.0-53.0) Mean Corpuscular Volume 88 fL (79-100) Mean Corpuscular Hemoglobin 29 pg (25-35) Mean Corpuscular Hemoglobin Concent 33 g/dL (31-37) Red Cell Distribution Width 14.3 % (11.5-14.5) Platelet Count 248 x10^3/uL (140-400) Neutrophils (%) (Auto) 87 % (31-73) Lymphocytes (%) (Auto) 4 % (24-48) Monocytes (%) (Auto) 9 % (0-9) Eosinophils (%) (Auto) 0 % (0-3) Basophils (%) (Auto) 0 % (0-3) Neutrophils # (Auto) 19.1 x10^3/uL (1.8-7.7) Lymphocytes # (Auto) 0.9 x10^3/uL (1.0-4.8) Monocytes # (Auto) 1.9 x10^3/uL (0.0-1.1) Eosinophils # (Auto) 0.0 x10^3/uL (0.0-0.7) Basophils # (Auto) 0.0 x10^3/uL (0.0-0.2) Sodium Level 137 mmol/L (136-145) Potassium Level 3.7 mmol/L (3.5-5.1) Chloride Level 103 mmol/L (98-107) Carbon Dioxide Level 23 mmol/L (21-32) Anion Gap 11 (6-14) Blood Urea Nitrogen 39 mg/dL (8-26) Creatinine 1.3 mg/dL (0.7-1.3) Estimated GFR (Cockcroft-Gault) 71.6 Glucose Level 320 mg/dL (70-99) Calcium Level 6.7 mg/dL (8.5-10.1) O2 Saturation 82 % (92-99) Arterial Blood pH 7.29 (7.35-7.45) Arterial Blood pCO2 at Patient Temp 40 mmHg (35-46) Arterial Blood pO2 at Patient Temp 52 mmHg (75-108) Arterial Blood HCO3 18 mmol/L (21-28) Arterial Blood Base Excess -8 mmol/L (-3-3) FiO2 100% Laboratory Tests Test 02/09/20 11:54 02/09/20 17:19 02/09/20 21:57 02/09/20 23:05 Glucose (Fingerstick) 300 mg/dL (70-99) 212 mg/dL (70-99) 261 mg/dL (70-99) O2 Saturation 82 % (92-99) Arterial Blood pH 7.30 (7.35-7.45) Arterial Blood pCO2 at Patient Temp 47 mmHg (35-46) Arterial Blood pO2 at Patient Temp 51 mmHg (75-108) Arterial Blood HCO3 22 mmol/L (21-28) Arterial Blood Base Excess -4 mmol/L (-3-3) FiO2 100 Test 02/10/20 00:00 02/10/20 05:40 02/10/20 05:43 02/10/20 08:15 Glucose (Fingerstick) 309 mg/dL (70-99) 295 mg/dL (70-99) White Blood Count 21.8 x10^3/uL (4.0-11.0) Red Blood Count 4.41 x10^6/uL (4.30-5.70) Hemoglobin 12.7 g/dL (13.0-17.5) Hematocrit 38.7 % (39.0-53.0) Mean Corpuscular Volume 88 fL (79-100) Mean Corpuscular Hemoglobin 29 pg (25-35) Mean Corpuscular Hemoglobin Concent 33 g/dL (31-37) Red Cell Distribution Width 14.3 % (11.5-14.5) Platelet Count 248 x10^3/uL (140-400) Neutrophils (%) (Auto) 87 % (31-73) Lymphocytes (%) (Auto) 4 % (24-48) Monocytes (%) (Auto) 9 % (0-9) Eosinophils (%) (Auto) 0 % (0-3) Basophils (%) (Auto) 0 % (0-3) Neutrophils # (Auto) 19.1 x10^3/uL (1.8-7.7) Lymphocytes # (Auto) 0.9 x10^3/uL (1.0-4.8) Monocytes # (Auto) 1.9 x10^3/uL (0.0-1.1) Eosinophils # (Auto) 0.0 x10^3/uL (0.0-0.7) Basophils # (Auto) 0.0 x10^3/uL (0.0-0.2) Sodium Level 137 mmol/L (136-145) Potassium Level 3.7 mmol/L (3.5-5.1) Chloride Level 103 mmol/L (98-107) Carbon Dioxide Level 23 mmol/L (21-32) Anion Gap 11 (6-14) Blood Urea Nitrogen 39 mg/dL (8-26) Creatinine 1.3 mg/dL (0.7-1.3) Estimated GFR (Cockcroft-Gault) 71.6 Glucose Level 320 mg/dL (70-99) Calcium Level 6.7 mg/dL (8.5-10.1) O2 Saturation 82 % (92-99) Arterial Blood pH 7.29 (7.35-7.45) Arterial Blood pCO2 at Patient Temp 40 mmHg (35-46) Arterial Blood pO2 at Patient Temp 52 mmHg (75-108) Arterial Blood HCO3 18 mmol/L (21-28) Arterial Blood Base Excess -8 mmol/L (-3-3) FiO2 100% Medications Active Scripts Medications Dose Route/Sig Max Daily Dose Days Date Category Aspirin 325 Mg Tablet 325 Mg PO DAILY 03/20/19 Rx Venlafaxine Hcl Er (Venlafaxine Hcl) 150 Mg Tab.er.24 1 Tab PO BID 03/18/19 Reported Novolog (Insulin Aspart) 100 Unit/1 Ml Cartridge 25 Unit SQ TIDWMEALS 03/18/19 Reported Metformin Hcl 1,000 Mg Tablet 1,000 Mg PO BIDWMEALS 03/18/19 Reported Zofran (Ondansetron Hcl) 4 Mg Tablet 1 Tab PO Q6HRS 03/18/19 Reported Terazosin Hcl 2 Mg Capsule 2 Cap PO QHS 03/18/19 Reported Lantus Solostar (Insulin Glargine,Hum.rec.anlog) 100 Unit/1 Ml Insuln.pen 80 Unit SQ QHS 03/18/19 Reported Metoprolol Tartrate 50 Mg Tablet 1 Tab PO BID 03/18/19 Reported Omeprazole 20 Mg Capsule.dr 20 Mg PO BID 03/18/19 Reported Lisinopril 40 Mg Tablet 1 Tab PO DAILY 03/18/19 Reported Dqlmer-Cjrljhmz-Fhwx 50-325-40 (Butalb/Acetaminophen/Caffeine) 1 Each Tablet 1-2 Tab PO PRN Q4HRS PRN MDD 6 tablets 2 07/30/18 Rx Imitrex (Sumatriptan Succinate) 50 Mg Tablet 50 Mg PO PRN BID PRN 01/15/15 Reported Hydrochlorothiazide Tablet (Hydrochlorothiazide) 12.5 Mg Tablet 25 Mg PO DAILY 01/15/15 Reported Meclizine Hcl 25 Mg Tablet 25 Mg PO PRN TID PRN 90 01/15/15 Reported Patanol (Olopatadine Hcl) 5 Ml Drops 1 Drop EACHEYE BID 01/11/15 Reported Atorvastatin Calcium 20 Mg Tablet 1 Tab PO DAILY 01/11/15 Reported Isosorbide Mononitrate 20 Mg Tablet 20 Mg PO BID 08/22/13 Reported Amlodipine Besylate 10 Mg Tablet 10 Mg PO HS 08/22/13 Reported Isosorbide Dinitrate 30 Mg Tablet 20 Mg PO DAILY 07/15/19 Reported Hydrochlorothiazide Tablet (Hydrochlorothiazide) 25 Mg Tablet 25 Mg PO DAILY 07/15/19 Reported Ondansetron Odt (Ondansetron) 4 Mg Tab.rapdis 1 Tab PO PRN Q6-8HRS PRN 01/31/19 Rx Jnginq-Orlehpey-Xfvi 50-325-40 (Butalb/Acetaminophen/Caffeine) 1 Each Tablet 1 Each PO Q6HRS PRN 01/31/19 Rx Comments cxr reviewed 02/07 ett ok, b lat infilt Impression . 1. Acute hypoxic respiratory failure secondary to COVID-19 pneumonia and ARDS/ worsening hypoxia 2. COVID-19 pneumonia with sepsis. 3. Abnormal chest x-ray with diffuse alveolar infiltrates and somewhat peripheral location. We will monitor closely. Cannot exclude any aspiration pneumonia. 4. 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 5. Diabetic ketoacidosis, now anion gap closed and being monitored by PCP.BS better 6. Hypernatremia, s/p IV fluids. resolved 7. Hypertension/ cardene Plan . 1. Continue with present assist control mode and follow ABGs and make necessary adjustments. 100%FIO2/ PEEP of 13 abg reviewed, 2. Broad-spectrum antibiotics. 3. Monitor clinical course. 4. will give prn lasix 5. s/p convalescent plasma. s/p Tocilizumab 02/03 6. DKA is resolved, steroids started 02/04, changed to q12, 8. DVT and stress ulcer prophylaxis. 9. on cardene 10. added ativan drip. prn paralytics Discussed with RN and RT. prognosis guarded critically ill, Critical care time 30 minutes no overlap. message left for son . would rec DNR IGNACIO PUTNAM MD Feb 10, 2020 10:41
[2020-02-10] MEDS ORDERED: FUROSEMIDE 40 MG/4 ML VIAL. IVP ONE (10:45)
--- NOTE | 2020-02-10 11:51 | PDOC ---
ADAMA GUZMAN CLINICAL NURSE 02/10/20 1151: CARDIO Progress Notes Date and Time Date of Service 02/10/2020 Time of Evaluation 1130 Subjective Subjective: Other Vitals Vitals Vital Signs Date Time Temp Pulse Resp B/P (MAP) Pulse Ox O2 Delivery O2 Flow Rate FiO2 02/10/20 11:15 94 Ventilator 02/10/20 11:00 103 26 146/58 (87) 02/10/20 08:00 98.9 98.9 Weight Weight [ ] Input and Output Intake and Output Intake and Output 02/10/20 07:00 Intake Total 8086 ml Output Total 1700 ml Balance 6386 ml Intake IV Total 5636 ml Tube Feeding 1873 ml Other 577 ml Output Urine Total 1700 ml # Bowel Movements 1 Laboratory Labs Laboratory Tests Test 02/09/20 11:54 02/09/20 17:19 02/09/20 21:57 02/09/20 23:05 Glucose (Fingerstick) 300 mg/dL (70-99) 212 mg/dL (70-99) 261 mg/dL (70-99) O2 Saturation 82 % (92-99) Arterial Blood pH 7.30 (7.35-7.45) Arterial Blood pCO2 at Patient Temp 47 mmHg (35-46) Arterial Blood pO2 at Patient Temp 51 mmHg (75-108) Arterial Blood HCO3 22 mmol/L (21-28) Arterial Blood Base Excess -4 mmol/L (-3-3) FiO2 100 Test 02/10/20 00:00 02/10/20 05:40 02/10/20 05:43 02/10/20 08:15 Glucose (Fingerstick) 309 mg/dL (70-99) 295 mg/dL (70-99) White Blood Count 21.8 x10^3/uL (4.0-11.0) Red Blood Count 4.41 x10^6/uL (4.30-5.70) Hemoglobin 12.7 g/dL (13.0-17.5) Hematocrit 38.7 % (39.0-53.0) Mean Corpuscular Volume 88 fL (79-100) Mean Corpuscular Hemoglobin 29 pg (25-35) Mean Corpuscular Hemoglobin Concent 33 g/dL (31-37) Red Cell Distribution Width 14.3 % (11.5-14.5) Platelet Count 248 x10^3/uL (140-400) Neutrophils (%) (Auto) 87 % (31-73) Lymphocytes (%) (Auto) 4 % (24-48) Monocytes (%) (Auto) 9 % (0-9) Eosinophils (%) (Auto) 0 % (0-3) Basophils (%) (Auto) 0 % (0-3) Neutrophils # (Auto) 19.1 x10^3/uL (1.8-7.7) Lymphocytes # (Auto) 0.9 x10^3/uL (1.0-4.8) Monocytes # (Auto) 1.9 x10^3/uL (0.0-1.1) Eosinophils # (Auto) 0.0 x10^3/uL (0.0-0.7) Basophils # (Auto) 0.0 x10^3/uL (0.0-0.2) Sodium Level 137 mmol/L (136-145) Potassium Level 3.7 mmol/L (3.5-5.1) Chloride Level 103 mmol/L (98-107) Carbon Dioxide Level 23 mmol/L (21-32) Anion Gap 11 (6-14) Blood Urea Nitrogen 39 mg/dL (8-26) Creatinine 1.3 mg/dL (0.7-1.3) Estimated GFR (Cockcroft-Gault) 71.6 Glucose Level 320 mg/dL (70-99) Calcium Level 6.7 mg/dL (8.5-10.1) O2 Saturation 82 % (92-99) Arterial Blood pH 7.29 (7.35-7.45) Arterial Blood pCO2 at Patient Temp 40 mmHg (35-46) Arterial Blood pO2 at Patient Temp 52 mmHg (75-108) Arterial Blood HCO3 18 mmol/L (21-28) Arterial Blood Base Excess -8 mmol/L (-3-3) FiO2 100% Microbiology Micro Microbiology 02/02/20 Blood Culture - Final, Complete NO GROWTH AFTER 5 DAYS Physical Exam Chest: Symmetric LUNGS: Other Heart: RRR (SR) Abdomen: Other (obese) Neurology: other Assessment Assessment 1. Acute respiratory failure secondary to COVID PNA, intubated/vent 2. Leukocytosis/sepsis 3. CHRISTIANNE; resolved 4. Hypertensive urgency; BP stable and controlled. No arrhythmias 6. Hyperlipidemia 7. DM2: labile BG per PCP 8. Hypokalemia 9. Prior CVA 10. H/o seizures Recommendations Continue BP regimen. Discussed with RN and will titrate off cardene and monitor BP trend. Ongoing treatment of COVID PNA, ARDS as per pulm, IM Secondary prevention measures as toleraed. ASA. Outpatient echo when recovered from COVID Supportive care from a CV standpoint. Justicifation of Admission Dx: Justifications for Admission: Justification of Admission Dx: Yes Sepsis: Altered Mental Status ALEXSANDER MEYERS MD 02/10/20 1655: CARDIO Progress Notes Assessment Assessment Patient seen and examined. Agree with RATCHET SETTER's assessment and plan. Blood pressure better controlled. Wean Cardene off as tolerated. Telemetry did not show any significant arrhythmias. Continue management of acute respiratory failure/ARDS/COVID pneumonia per pulmonary and ID teams ADAMA GUZMAN APRN Feb 10, 2020 11:51 ALEXSANDER MEYERS MD Feb 10, 2020 16:55
[2020-02-10 13:05] LABS: COLOR,URINE RED
[2020-02-10 13:13] LABS: BACTERIA,URINE MODERATE /HPF (0-FEW); CLARITY,URINE TURBID; RBC,URINE TNTC /HPF (0-2)
--- NOTE | 2020-02-10 14:22 | NUR ---
SS following for discharge planning. SS reviewed pt chart and discussed with pt RN. Pt remains on the vent at this time and is currently on IV Zosyn. Pt COVID19 positive. SS will continue to follow for discharge planning.
[2020-02-10] MEDS ORDERED: METOPROLOL TARTRATE 5 MG/5 ML VIAL. IVP ONE (15:30)
[2020-02-10] MEDS ORDERED: LABETALOL 20 MG/4 ML DISP.SYRIN. IVP PRN (15:30)
[2020-02-10] MEDS ORDERED: ISOSORBIDE DINITRATE 10 MG TABLET. PO ONE (15:30)
[2020-02-10] MEDS: hydrALAZINE 20 MG/ML VIAL. IVP PRN (16:31)
[2020-02-10] MEDS: fentaNYL HIGH DOSE PCA 55 ML IV PRN (19:38)
[2020-02-10] MEDS: ATORVASTATIN CALCIUM 20 MG TABLET PO SCH (21:00)
[2020-02-10] MEDS: amLODIPine BESYLATE 10 MG TABLET PO SCH (21:02)
--- NOTE | 2020-02-10 22:43 | NUR ---
patient O2 stats 84-89- RT here to adjust vent settings
[2020-02-11] VITALS (23 sets, daily range): BP systolic 129–176; BP diastolic 52–69
[2020-02-11] MEDS: INSULIN LISPRO 300 UNITS/3 ML VIAL. SQ SCH ×4 (00:13→17:55)
[2020-02-11] MEDS: VECURONIUM BROMIDE 50 MG in TOTAL VOLUME 50 ML IV PRN ×3 (01:52→17:37)
[2020-02-11] MEDS: LORazepam 40 MG in IV NORMAL SALINE 250ML 250 ML IV PRN ×4 (04:35→20:29)
[2020-02-11] MEDS: PIPERACILLIN/TAZOBACTAM 3.375 GM in IV NORMAL SALINE 50ML 50 ML IV SCH ×3 (06:00→17:39)
[2020-02-11] MEDS: methylPREDNISolone SOD SUCC PF 40 MG/ML VIAL. IV SCH ×3 (06:21→22:23)
[2020-02-11] MEDS: METOPROLOL TARTRATE 5 MG/5 ML VIAL. IVP SCH ×4 (06:22→17:39)
[2020-02-11 06:41] LABS: BASO # 0.3 x10^3/uL (0.0-0.2); BASO % 1 % (0-3); EOS % 0 % (0-3); HEMATOCRIT 37.2 % (39.0-53.0); HEMOGLOBIN 12.4 g/dL (13.0-17.5); LYMPH # 0.8 x10^3/uL (1.0-4.8); LYMPH % 3 % (24-48); MEAN CORPUSCULAR HEMOGLOBIN 29 pg (25-35); MEAN CORPUSCULAR HGB CONC 33 g/dL (31-37); MEAN CORPUSCULAR VOLUME 88 fL (79-100); MONO # 2.6 x10^3/uL (0.0-1.1); MONO % 10 % (0-9); NEUT # 22.5 x10^3/uL (1.8-7.7); NEUT % 86 % (31-73); PLATELET COUNT 265 x10^3/uL (140-400); RED BLOOD COUNT 4.24 x10^6/uL (4.30-5.70); RED CELL DISTRIBUTION WIDTH 14.8 % (11.5-14.5); WHITE BLOOD COUNT 26.1 x10^3/uL (4.0-11.0)
[2020-02-11 06:54] LABS: ALBUMIN/GLOBULIN RATIO 0.6 (1.0-1.7); CALCIUM 6.8 mg/dL (8.5-10.1); CREATININE 1.7 mg/dL (0.7-1.3); GFR 52.5; POTASSIUM 4.1 mmol/L (3.5-5.1); TOTAL BILIRUBIN 0.2 mg/dL (0.2-1.0); TOTAL PROTEIN 5.1 g/dL (6.4-8.2)
[2020-02-11 07:17] LABS: BASE EXCESS ABG -10 mmol/L (-3-3); HCO3 ABG 17 mmol/L (21-28); PCO2 ABG 39 mmHg (35-46); SAT O2 ABG 77 % (92-99)
[2020-02-11 07:17] LABS: % BANDS 5 % (0-9); % LYMPHS 5 % (24-48); % METAS 2 % (0-0); % MONOS 5 % (0-10); % SEGS 83 % (35-66); NUCLEATED RBC 1
[2020-02-11 07:18] LABS: PLT ESTIMATE ADEQUATE (ADEQUATE)
[2020-02-11 07:18] LABS: FIO2 ABG 100; PO2 ABG 47 mmHg (75-108)
[2020-02-11] MEDS: metFORMIN 500 MG TABLET PO SCH ×2 (07:51→17:38)
[2020-02-11] MEDS: PANTOPRAZOLE IV PUSH 40 MG VIAL. IVP SCH (07:51)
[2020-02-11] MEDS: DOCUSATE 100 MG/10 ML SOLUTION. PO SCH (07:53)
[2020-02-11] MEDS: hydroCHLOROthiazide 25 MG TABLET PO SCH (07:53)
[2020-02-11] MEDS: LISINOPRIL 20 MG TABLET PO SCH (07:54)
[2020-02-11] MEDS: SENNOSIDES/DOCUSATE 8.6/50MG TABLET. PO SCH ×2 (07:54→21:27)
[2020-02-11] MEDS: ISOSORBIDE DINITRATE 10 MG TABLET. PO SCH ×3 (07:55→22:23)
[2020-02-11] MEDS: ASPIRIN 325 MG TABLET PO SCH (07:55)
[2020-02-11] MEDS: KETOTIFEN FUMARATE 0.025% OPHTH SOLUTION BOTTLE. OU SCH ×2 (07:56→21:00)
[2020-02-11] MEDS: ENOXAPARIN 40 MG/0.4 ML SYRINGE. SQ SCH (07:56)
--- NOTE | 2020-02-11 08:08 | RAD ---
PORTABLE CHEST 1V History: Reason: covid positive on vent / Spl. Instructions: / History: Comparison: February 08, 2020 Findings: Increased diffuse interstitial alveolar opacities. Small left pleural effusion. Unchanged heart size. Stable endotracheal tube, enteric tube and right IJ central line. No pneumothorax. Impression: 1. Increased diffuse interstitial and alveolar opacities. Electronically signed by: Osito Vidal DO (02/11/2020 8:06 AM) [id number]
[2020-02-11] MEDS: ELECTROLYTE (ICU) PROTOCOL. MC SCH (09:00)
--- NOTE | 2020-02-11 09:34 | PDOC ---
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 Diabetes mellitus type 2 insulin requiring Severe anion gap metabolic acidosis Plan: isolation cont ICU VENT SUPPORT AC mode 100%FIO2/ 10 PEEP fluid resuscitation D/C IV NS 02/09 DKA protocol Broad spectrum antibiotics for pneumonic process POS COVID 19 infection supportive measures vent management, will consult pulmonology for assistance. further recommendations based on clinical course DVT prophylaxis: heparin cardiology consult cxr 02/06 worse I>>>O will give low dose lasix s/p convalescent plasma. s/p Tocilizumab 02/03 titrate off cardene and monitor BP trend. CHK IONIZED CA++ 02/10 Suspect gram negative organism pneumonia worsening hypoxia AC mode 100%FIO2/ 9 PEEP poor prognosis, son considering DNR status, family discussing Justicifation of Admission Dx: Justicifation of Admission Dx: Justifications for Admission: Justification of Admission Dx: Yes Sepsis: Altered Mental Status 38 MIN CC TIME Vitals Vitals Vital Signs Date Time Temp Pulse Resp B/P (MAP) Pulse Ox O2 Delivery O2 Flow Rate FiO2 02/11/20 09:00 94 26 158/54 (88) 94 Ventilator 02/11/20 08:00 97.6 97.6 02/10/20 20:48 15.0 Physical Exam Physical Exam SEDATED ON VENT visual exam done due to COVID pandemia EXTREMITIES: Without any cyanosis. NEUROLOGIC: Sedated PSYCHIATRIC: uanble to obtain due to acute process . SKIN: No ulcerations General: Other (sedated ) Extremities: No edema Skin: No significant lesion Labs LABS PORTABLE CHEST 1V History: Reason: covid positive on vent / Spl. Instructions: / History: Comparison: February 08, 2020 Findings: Increased diffuse interstitial alveolar opacities. Small left pleural effusion. Unchanged heart size. Stable endotracheal tube, enteric tube and right IJ central line. No pneumothorax. Impression: 1. Increased diffuse interstitial and alveolar opacities. Electronically signed by: Osito Eller DO (02/11/2020 8:06 AM) [id number] DICTATED and SIGNED BY: OSITO ELLER DO Laboratory Tests Test 02/10/20 12:25 02/10/20 13:00 02/10/20 16:40 02/10/20 17:35 Glucose (Fingerstick) 298 mg/dL (70-99) 283 mg/dL (70-99) Urine Collection Type Unknown Urine Color Red Urine Clarity Turbid Urine pH 5.0 (<5.0-8.0) Urine Specific [place] 1.015 (1.000-1.030) Urine Protein mg/dL (NEG-TRACE) Urine Glucose (UA) mg/dL (NEG) Urine Ketones (Stick) mg/dL (NEG) Urine Blood (NEG) Urine Nitrite (NEG) Urine Bilirubin (NEG) Urine Urobilinogen Dipstick mg/dL (0.2 mg/dL) Urine Leukocyte Esterase (NEG) Urine RBC Tntc /HPF (0-2) Urine WBC 5-10 /HPF (0-4) Urine Bacteria Moderate /HPF (0-FEW) Ionized Calcium 1.06 mmol/L (1.13-1.32) Test 02/10/20 20:59 02/11/20 00:09 02/11/20 06:17 02/11/20 06:30 Glucose (Fingerstick) 336 mg/dL (70-99) 390 mg/dL (70-99) 399 mg/dL (70-99) White Blood Count 26.1 x10^3/uL (4.0-11.0) Red Blood Count 4.24 x10^6/uL (4.30-5.70) Hemoglobin 12.4 g/dL (13.0-17.5) Hematocrit 37.2 % (39.0-53.0) Mean Corpuscular Volume 88 fL (79-100) Mean Corpuscular Hemoglobin 29 pg (25-35) Mean Corpuscular Hemoglobin Concent 33 g/dL (31-37) Red Cell Distribution Width 14.8 % (11.5-14.5) Platelet Count 265 x10^3/uL (140-400) Neutrophils (%) (Auto) 86 % (31-73) Lymphocytes (%) (Auto) 3 % (24-48) Monocytes (%) (Auto) 10 % (0-9) Eosinophils (%) (Auto) 0 % (0-3) Basophils (%) (Auto) 1 % (0-3) Neutrophils # (Auto) 22.5 x10^3/uL (1.8-7.7) Lymphocytes # (Auto) 0.8 x10^3/uL (1.0-4.8) Monocytes # (Auto) 2.6 x10^3/uL (0.0-1.1) Eosinophils # (Auto) 0.0 x10^3/uL (0.0-0.7) Basophils # (Auto) 0.3 x10^3/uL (0.0-0.2) Segmented Neutrophils % 83 % (35-66) Band Neutrophils % 5 % (0-9) Lymphocytes % 5 % (24-48) Monocytes % 5 % (0-10) Metamyelocytes % 2 % (0-0) Nucleated Red Blood Cells 1 Platelet Estimate Adequate (ADEQUATE) Sodium Level 138 mmol/L (136-145) Potassium Level 4.1 mmol/L (3.5-5.1) Chloride Level 103 mmol/L (98-107) Carbon Dioxide Level 24 mmol/L (21-32) Anion Gap 11 (6-14) Blood Urea Nitrogen 55 mg/dL (8-26) Creatinine 1.7 mg/dL (0.7-1.3) Estimated GFR (Cockcroft-Gault) 52.5 BUN/Creatinine Ratio 32 (6-20) Glucose Level 441 mg/dL (70-99) Calcium Level 6.8 mg/dL (8.5-10.1) Total Bilirubin 0.2 mg/dL (0.2-1.0) Aspartate Amino Transf (AST/SGOT) 22 U/L (15-37) Alanine Aminotransferase (ALT/SGPT) 19 U/L (16-63) Alkaline Phosphatase 236 U/L (46-116) Total Protein 5.1 g/dL (6.4-8.2) Albumin 2.0 g/dL (3.4-5.0) Albumin/Globulin Ratio 0.6 (1.0-1.7) Thyroid Stimulating Hormone (TSH) 1.167 uIU/mL (0.358-3.74) Test 02/11/20 07:00 O2 Saturation 77 % (92-99) Arterial Blood pH 7.26 (7.35-7.45) Arterial Blood pCO2 at Patient Temp 39 mmHg (35-46) Arterial Blood pO2 at Patient Temp 47 mmHg (75-108) Arterial Blood HCO3 17 mmol/L (21-28) Arterial Blood Base Excess -10 mmol/L (-3-3) FiO2 100 Assessment and Plan Assessmemt and Plan Problems Medical Problems: (1) Acute metabolic encephalopathy Status: Acute (2) Acute renal insufficiency Status: Acute (3) DKA (diabetic ketoacidoses) Status: Acute (4) Pneumonia Status: Acute (5) Respiratory failure with hypoxia Status: Acute (6) Suspected 2019 novel coronavirus infection Status: Acute Comment Review of Relevant I have reviewed the following items myra (where applicable) has been applied. Labs Laboratory Tests Test 02/09/20 11:54 02/09/20 17:19 02/09/20 21:57 02/09/20 23:05 Glucose (Fingerstick) 300 mg/dL (70-99) 212 mg/dL (70-99) 261 mg/dL (70-99) O2 Saturation 82 % (92-99) Arterial Blood pH 7.30 (7.35-7.45) Arterial Blood pCO2 at Patient Temp 47 mmHg (35-46) Arterial Blood pO2 at Patient Temp 51 mmHg (75-108) Arterial Blood HCO3 22 mmol/L (21-28) Arterial Blood Base Excess -4 mmol/L (-3-3) FiO2 100 Test 02/10/20 00:00 02/10/20 05:40 02/10/20 05:43 02/10/20 08:15 Glucose (Fingerstick) 309 mg/dL (70-99) 295 mg/dL (70-99) White Blood Count 21.8 x10^3/uL (4.0-11.0) Red Blood Count 4.41 x10^6/uL (4.30-5.70) Hemoglobin 12.7 g/dL (13.0-17.5) Hematocrit 38.7 % (39.0-53.0) Mean Corpuscular Volume 88 fL (79-100) Mean Corpuscular Hemoglobin 29 pg (25-35) Mean Corpuscular Hemoglobin Concent 33 g/dL (31-37) Red Cell Distribution Width 14.3 % (11.5-14.5) Platelet Count 248 x10^3/uL (140-400) Neutrophils (%) (Auto) 87 % (31-73) Lymphocytes (%) (Auto) 4 % (24-48) Monocytes (%) (Auto) 9 % (0-9) Eosinophils (%) (Auto) 0 % (0-3) Basophils (%) (Auto) 0 % (0-3) Neutrophils # (Auto) 19.1 x10^3/uL (1.8-7.7) Lymphocytes # (Auto) 0.9 x10^3/uL (1.0-4.8) Monocytes # (Auto) 1.9 x10^3/uL (0.0-1.1) Eosinophils # (Auto) 0.0 x10^3/uL (0.0-0.7) Basophils # (Auto) 0.0 x10^3/uL (0.0-0.2) Sodium Level 137 mmol/L (136-145) Potassium Level 3.7 mmol/L (3.5-5.1) Chloride Level 103 mmol/L (98-107) Carbon Dioxide Level 23 mmol/L (21-32) Anion Gap 11 (6-14) Blood Urea Nitrogen 39 mg/dL (8-26) Creatinine 1.3 mg/dL (0.7-1.3) Estimated GFR (Cockcroft-Gault) 71.6 Glucose Level 320 mg/dL (70-99) Calcium Level 6.7 mg/dL (8.5-10.1) O2 Saturation 82 % (92-99) Arterial Blood pH 7.29 (7.35-7.45) Arterial Blood pCO2 at Patient Temp 40 mmHg (35-46) Arterial Blood pO2 at Patient Temp 52 mmHg (75-108) Arterial Blood HCO3 18 mmol/L (21-28) Arterial Blood Base Excess -8 mmol/L (-3-3) FiO2 100% Test 02/10/20 12:25 02/10/20 13:00 02/10/20 16:40 02/10/20 17:35 Glucose (Fingerstick) 298 mg/dL (70-99) 283 mg/dL (70-99) Urine Collection Type Unknown Urine Color Red Urine Clarity Turbid Urine pH 5.0 (<5.0-8.0) Urine Specific [place] 1.015 (1.000-1.030) Urine Protein mg/dL (NEG-TRACE) Urine Glucose (UA) mg/dL (NEG) Urine Ketones (Stick) mg/dL (NEG) Urine Blood (NEG) Urine Nitrite (NEG) Urine Bilirubin (NEG) Urine Urobilinogen Dipstick mg/dL (0.2 mg/dL) Urine Leukocyte Esterase (NEG) Urine RBC Tntc /HPF (0-2) Urine WBC 5-10 /HPF (0-4) Urine Bacteria Moderate /HPF (0-FEW) Ionized Calcium 1.06 mmol/L (1.13-1.32) Test 02/10/20 20:59 02/11/20 00:09 02/11/20 06:17 02/11/20 06:30 Glucose (Fingerstick) 336 mg/dL (70-99) 390 mg/dL (70-99) 399 mg/dL (70-99) White Blood Count 26.1 x10^3/uL (4.0-11.0) Red Blood Count 4.24 x10^6/uL (4.30-5.70) Hemoglobin 12.4 g/dL (13.0-17.5) Hematocrit 37.2 % (39.0-53.0) Mean Corpuscular Volume 88 fL (79-100) Mean Corpuscular Hemoglobin 29 pg (25-35) Mean Corpuscular Hemoglobin Concent 33 g/dL (31-37) Red Cell Distribution Width 14.8 % (11.5-14.5) Platelet Count 265 x10^3/uL (140-400) Neutrophils (%) (Auto) 86 % (31-73) Lymphocytes (%) (Auto) 3 % (24-48) Monocytes (%) (Auto) 10 % (0-9) Eosinophils (%) (Auto) 0 % (0-3) Basophils (%) (Auto) 1 % (0-3) Neutrophils # (Auto) 22.5 x10^3/uL (1.8-7.7) Lymphocytes # (Auto) 0.8 x10^3/uL (1.0-4.8) Monocytes # (Auto) 2.6 x10^3/uL (0.0-1.1) Eosinophils # (Auto) 0.0 x10^3/uL (0.0-0.7) Basophils # (Auto) 0.3 x10^3/uL (0.0-0.2) Segmented Neutrophils % 83 % (35-66) Band Neutrophils % 5 % (0-9) Lymphocytes % 5 % (24-48) Monocytes % 5 % (0-10) Metamyelocytes % 2 % (0-0) Nucleated Red Blood Cells 1 Platelet Estimate Adequate (ADEQUATE) Sodium Level 138 mmol/L (136-145) Potassium Level 4.1 mmol/L (3.5-5.1) Chloride Level 103 mmol/L (98-107) Carbon Dioxide Level 24 mmol/L (21-32) Anion Gap 11 (6-14) Blood Urea Nitrogen 55 mg/dL (8-26) Creatinine 1.7 mg/dL (0.7-1.3) Estimated GFR (Cockcroft-Gault) 52.5 BUN/Creatinine Ratio 32 (6-20) Glucose Level 441 mg/dL (70-99) Calcium Level 6.8 mg/dL (8.5-10.1) Total Bilirubin 0.2 mg/dL (0.2-1.0) Aspartate Amino Transf (AST/SGOT) 22 U/L (15-37) Alanine Aminotransferase (ALT/SGPT) 19 U/L (16-63) Alkaline Phosphatase 236 U/L (46-116) Total Protein 5.1 g/dL (6.4-8.2) Albumin 2.0 g/dL (3.4-5.0) Albumin/Globulin Ratio 0.6 (1.0-1.7) Thyroid Stimulating Hormone (TSH) 1.167 uIU/mL (0.358-3.74) Test 02/11/20 07:00 O2 Saturation 77 % (92-99) Arterial Blood pH 7.26 (7.35-7.45) Arterial Blood pCO2 at Patient Temp 39 mmHg (35-46) Arterial Blood pO2 at Patient Temp 47 mmHg (75-108) Arterial Blood HCO3 17 mmol/L (21-28) Arterial Blood Base Excess -10 mmol/L (-3-3) FiO2 100 Laboratory Tests Test 02/10/20 12:25 02/10/20 13:00 02/10/20 16:40 02/10/20 17:35 Glucose (Fingerstick) 298 mg/dL (70-99) 283 mg/dL (70-99) Urine Collection Type Unknown Urine Color Red Urine Clarity Turbid Urine pH 5.0 (<5.0-8.0) Urine Specific [place] 1.015 (1.000-1.030) Urine Protein mg/dL (NEG-TRACE) Urine Glucose (UA) mg/dL (NEG) Urine Ketones (Stick) mg/dL (NEG) Urine Blood (NEG) Urine Nitrite (NEG) Urine Bilirubin (NEG) Urine Urobilinogen Dipstick mg/dL (0.2 mg/dL) Urine Leukocyte Esterase (NEG) Urine RBC Tntc /HPF (0-2) Urine WBC 5-10 /HPF (0-4) Urine Bacteria Moderate /HPF (0-FEW) Ionized Calcium 1.06 mmol/L (1.13-1.32) Test 02/10/20 20:59 02/11/20 00:09 02/11/20 06:17 02/11/20 06:30 Glucose (Fingerstick) 336 mg/dL (70-99) 390 mg/dL (70-99) 399 mg/dL (70-99) White Blood Count 26.1 x10^3/uL (4.0-11.0) Red Blood Count 4.24 x10^6/uL (4.30-5.70) Hemoglobin 12.4 g/dL (13.0-17.5) Hematocrit 37.2 % (39.0-53.0) Mean Corpuscular Volume 88 fL (79-100) Mean Corpuscular Hemoglobin 29 pg (25-35) Mean Corpuscular Hemoglobin Concent 33 g/dL (31-37) Red Cell Distribution Width 14.8 % (11.5-14.5) Platelet Count 265 x10^3/uL (140-400) Neutrophils (%) (Auto) 86 % (31-73) Lymphocytes (%) (Auto) 3 % (24-48) Monocytes (%) (Auto) 10 % (0-9) Eosinophils (%) (Auto) 0 % (0-3) Basophils (%) (Auto) 1 % (0-3) Neutrophils # (Auto) 22.5 x10^3/uL (1.8-7.7) Lymphocytes # (Auto) 0.8 x10^3/uL (1.0-4.8) Monocytes # (Auto) 2.6 x10^3/uL (0.0-1.1) Eosinophils # (Auto) 0.0 x10^3/uL (0.0-0.7) Basophils # (Auto) 0.3 x10^3/uL (0.0-0.2) Segmented Neutrophils % 83 % (35-66) Band Neutrophils % 5 % (0-9) Lymphocytes % 5 % (24-48) Monocytes % 5 % (0-10) Metamyelocytes % 2 % (0-0) Nucleated Red Blood Cells 1 Platelet Estimate Adequate (ADEQUATE) Sodium Level 138 mmol/L (136-145) Potassium Level 4.1 mmol/L (3.5-5.1) Chloride Level 103 mmol/L (98-107) Carbon Dioxide Level 24 mmol/L (21-32) Anion Gap 11 (6-14) Blood Urea Nitrogen 55 mg/dL (8-26) Creatinine 1.7 mg/dL (0.7-1.3) Estimated GFR (Cockcroft-Gault) 52.5 BUN/Creatinine Ratio 32 (6-20) Glucose Level 441 mg/dL (70-99) Calcium Level 6.8 mg/dL (8.5-10.1) Total Bilirubin 0.2 mg/dL (0.2-1.0) Aspartate Amino Transf (AST/SGOT) 22 U/L (15-37) Alanine Aminotransferase (ALT/SGPT) 19 U/L (16-63) Alkaline Phosphatase 236 U/L (46-116) Total Protein 5.1 g/dL (6.4-8.2) Albumin 2.0 g/dL (3.4-5.0) Albumin/Globulin Ratio 0.6 (1.0-1.7) Thyroid Stimulating Hormone (TSH) 1.167 uIU/mL (0.358-3.74) Test 02/11/20 07:00 O2 Saturation 77 % (92-99) Arterial Blood pH 7.26 (7.35-7.45) Arterial Blood pCO2 at Patient Temp 39 mmHg (35-46) Arterial Blood pO2 at Patient Temp 47 mmHg (75-108) Arterial Blood HCO3 17 mmol/L (21-28) Arterial Blood Base Excess -10 mmol/L (-3-3) FiO2 100 Microbiology 02/02/20 Blood Culture - Final, Complete NO GROWTH AFTER 5 DAYS Medications Current Medications Sodium Chloride 1,000 ml @ 1,000 mls/hr 1X ONCE IV Last administered on 02/02/20at 16:48; Start 02/02/20 at 15:45; Stop 02/02/20 at 16:44; Status DC Etomidate (Amidate) 20 mg 1X ONCE IV Last administered on 02/02/20at 15:54; Start 02/02/20 at 15:45; Stop 02/02/20 at 15:52; Status DC Rocuronium [place] (Zemuron) 50 mg 1X ONCE IV Last administered on 02/02/20at 15:55; Start 02/02/20 at 15:45; Stop 02/02/20 at 15:52; Status DC Propofol 100 ml @ 0 mls/hr CONT PRN IV SEE PROTOCOL Last administered on 02/02/20at 16:33; Start 02/02/20 at 15:45; Stop 02/02/20 at 17:44; Status DC Chlorhexidine Gluconate (Peridex) 15 ml BID MM ; Start 02/02/20 at 21:00; Stop 02/02/20 at 17:39; Status DC Fentanyl Citrate (Fentanyl 2ml Vial) 100 mcg 1X ONCE IV Last administered on 02/02/20at 16:34; Start 02/02/20 at 16:15; Stop 02/02/20 at 16:16; Status DC Sodium Chloride 1,000 ml @ 1,000 mls/hr 1X ONCE IV Last administered on 02/02/20at 16:15; Start 02/02/20 at 16:15; Stop 02/02/20 at 17:20; Status DC Aspirin (Aspirin Rectal Supp) 300 mg 1X ONCE VT Last administered on 02/02/20at 16:35; Start 02/02/20 at 16:15; Stop 02/02/20 at 16:17; Status DC Acetaminophen (Tylenol) 650 mg PRN Q6HRS PRN PO Headaches, Temp > 101.5'; Start 02/02/20 at 16:15 Prochlorperazine Edisylate (Compazine) 5 mg PRN Q6HRS PRN IVP NAUSEA/VOMITING; Start 02/02/20 at 16:15 Prochlorperazine (Compazine) 25 mg PRN Q12HR PRN VT NAUSEA/VOMITING; Start 02/02/20 at 16:15 Info (Icu Electrolyte Protocol) 1 ea DAILY MC Last administered on 02/09/20at 09:00; Start 02/03/20 at 09:00 Heparin Sodium (Porcine) (Heparin Sodium) 5,000 unit Q8HRS SQ Last administered on 02/04/20at 05:32; Start 02/02/20 at 22:00; Stop 02/04/20 at 14:45; Status DC Sodium Chloride (Normal Saline Flush) 3 ml QSHIFT PRN IV AFTER MEDS AND BLOOD DRAWS; Start 02/02/20 at 16:15 Oxycodone/ Acetaminophen (Percocet 5/325) 1 tab PRN Q4HRS PRN PO MILD PAIN, 1ST CHOICE; Start 02/02/20 at 16:15 Morphine Sulfate (Morphine Sulfate) 2 mg PRN Q1HR PRN IV PAIN; Start 02/02/20 at 16:15 Senna/Docusate Sodium (Senna Plus) 1 tab BID PO Last administered on 02/11/20at 07:54; Start 02/02/20 at 21:00 Docusate Sodium (Colace) 100 mg BID PO ; Start 02/02/20 at 21:00; Stop 02/04/20 at 19:30; Status DC Lactulose (Lactulose) 20 gm PRN Q12HR PRN PO CONSTIPATION; Start 02/02/20 at 16:15 Amlodipine Besylate (Norvasc) 10 mg HS PO Last administered on 02/10/20at 21:02; Start 02/02/20 at 21:00 Aspirin (Grover Aspirin) 325 mg DAILY PO Last administered on 02/11/20at 07:55; Start 02/03/20 at 09:00 Atorvastatin Calcium (Lipitor) 20 mg QHS PO Last administered on 02/10/20at 21:00; Start 02/02/20 at 21:00 Acetaminophen/ Butalbital/ Caffeine (Fioricet) 1 tab PRN Q6HRS PRN PO MIGRAINE HEADACHE- 1ST CHOICE; Start 02/02/20 at 16:15 Hydrochlorothiazide (Hydrodiuril) 25 mg DAILY PO Last administered on 02/11/20at 07:53; Start 02/03/20 at 09:00 Isosorbide Dinitrate (Isordil) 10 mg TID PO Last administered on 02/10/20at 13:53; Start 02/02/20 at 21:00; Stop 02/10/20 at 15:23; Status DC Lisinopril (Prinivil) 40 mg DAILY PO Last administered on 02/11/20at 07:54; Start 02/03/20 at 09:00 Metoprolol Tartrate (Lopressor) 50 mg BID PO Last administered on 02/07/20at 21:21; Start 02/02/20 at 21:00; Stop 02/08/20 at 17:13; Status DC Non-Formulary Medication (Hydrochlorothiazide (Hydrochlorothiazide Tablet)) 25 mg DAILY PO ; Start 02/03/20 at 09:00; Status UNV Non-Formulary Medication (Insulin Aspart (Novolog)) 25 unit TIDWMEALS SQ ; Start 02/02/20 at 17:00; Status UNV Non-Formulary Medication (Insulin Glargine,Hum.rec.anlog (Lantus Solostar)) 80 unit QHS SQ ; Start 02/02/20 at 21:00; Status UNV Non-Formulary Medication (Isosorbide Dinitrate ) 20 mg DAILY PO ; Start 02/03/20 at 09:00; Status UNV Meclizine HCl (Antivert) 25 mg PRN Q6HRS PRN PO NAUSEA- 2ND CHOICE; Start 02/02/20 at 17:45 Metformin HCl (Glucophage) 1,000 mg BIDWMEALS PO Last administered on 02/11/20at 07:51; Start 02/02/20 at 17:00 Ketotifen Fumarate (Zaditor) 1 drop BID OU Last administered on 02/11/20at 07:56; Start 02/02/20 at 21:00 Pantoprazole Sodium (PROTONIX VIAL for IV PUSH) 40 mg DAILYAC IVP Last administered on 02/11/20at 07:51; Start 02/03/20 at 07:30 Ondansetron HCl (Zofran Odt) 4 mg PRN Q8HRS PRN PO NAUSEA/VOMITING, 1ST CHOICE PO; Start 02/02/20 at 17:45 Sumatriptan Succinate (Imitrex) 50 mg PRN BID PRN PO MIGRAINE HEADACHE; Start 02/02/20 at 17:45 Non-Formulary Medication (Terazosin Hcl ) 2 cap QHS PO ; Start 02/02/20 at 21:00; Status UNV Venlafaxine HCl (Effexor) 150 mg BID PO Last administered on 02/10/20at 21:02; Start 02/02/20 at 21:00 Fentanyl Citrate 30 ml @ 0 mls/hr CONT PRN IV SEE PROTOCOL Last administered on 02/06/20at 05:48; Start 02/02/20 at 16:30; Stop 02/06/20 at 10:59; Status DC Propofol 100 ml @ 0 mls/hr CONT PRN IV SEE PROTOCOL Last administered on 02/09/20at 17:03; Start 02/02/20 at 16:30 Fentanyl Citrate (Fentanyl 2ml Vial) 25 mcg PRN Q1HR PRN IV SEE COMMENTS; Start 02/02/20 at 16:30 Fentanyl Citrate (Fentanyl 2ml Vial) 50 mcg PRN Q1HR PRN IV SEE COMMENTS; St art 02/02/20 at 16:30 Chlorhexidine Gluconate (Peridex) 15 ml BID MM Last administered on 02/07/20at 21:20; Start 02/02/20 at 21:00; Stop 02/08/20 at 18:56; Status DC Morphine Sulfate (Morphine Sulfate) 2 mg PRN Q1HR PRN IV SEE COMMENTS.; Start 02/02/20 at 16:30 Morphine Sulfate (Morphine Sulfate) 4 mg PRN Q1HR PRN IV SEE COMMENTS.; Start 02/02/20 at 16:30 Midazolam HCl (Versed) 1 mg PRN Q30MIN PRN IV SEE COMMENTS.; Start 02/02/20 at 16:30 Piperacillin Sod/ Tazobactam Sod 4.5 gm/Sodium Chloride 100 ml @ 200 mls/hr 1X ONCE IV Last administered on 02/02/20at 17:03; Start 02/02/20 at 16:30; Stop 02/02/20 at 16:59; Status DC Azithromycin 250 ml @ 250 mls/hr 1X ONCE IV Last administered on 02/02/20at 17:40; Start 02/02/20 at 16:30; Stop 02/02/20 at 17:34; Status DC Dexamethasone Sodium Phosphate (Decadron) 10 mg 1X ONCE IVP Last administered on 02/02/20at 16:54; Start 02/02/20 at 16:30; Stop 02/02/20 at 16:33; Status DC Midazolam HCl (Versed) 5 mg 1X ONCE IV Last administered on 02/02/20at 16:35; Start 02/02/20 at 16:45; Stop 02/02/20 at 16:46; Status DC Insulin Human Regular (HumuLIN R VIAL) 8 unit 1X ONCE SQ Last administered on 02/02/20at 16:51; Start 02/02/20 at 16:45; Stop 02/02/20 at 16:46; Status DC Sodium Chloride 1,000 ml @ 500 mls/hr Q2H IV Last administered on 02/02/20at 18:33; Start 02/02/20 at 16:36; Stop 02/02/20 at 18:35; Status DC Insulin Human Regular 100 unit/ Sodium Chloride 101 ml @ 0 mls/hr CONT PRN PRN IV PER PROTOCOL Last administered on 02/03/20at 02:08; Start 02/02/20 at 16:45; Stop 02/03/20 at 02:31; Status DC Insulin Human Regular 100 ml @ As Directed STK-MED ONCE IV ; Start 02/02/20 at 16:41; Stop 02/02/20 at 16:41; Status DC Etomidate (Amidate) 20 mg 1X ONCE IV ; Start 02/02/20 at 17:15; Stop 02/02/20 at 17:22; Status DC Rocuronium [place] (Zemuron) 50 mg 1X ONCE IV ; Start 02/02/20 at 17:15; Stop 02/02/20 at 17:34; Status DC Piperacillin Sod/ Tazobactam Sod 3.375 gm/Sodium Chloride 50 ml @ 100 mls/hr Q6HRS IV Last administered on 02/11/20at 06:00; Start 02/03/20 at 00:00 Sodium Chloride 1,000 ml @ 250 mls/hr Q4H IV Last administered on 02/02/20at 18:43; Start 02/02/20 at 18:45; Stop 02/02/20 at 22:40; Status DC Pantoprazole Sodium (PROTONIX VIAL for IV PUSH) 40 mg 1X ONCE IVP Last administered on 02/02/20at 22:47; Start 02/02/20 at 20:15; Stop 02/02/20 at 20:40; Status DC Labetalol HCl (Normodyne Iv Push) 10 mg PRN Q4HRS PRN IVP HYPERTENSION, 2ND CHOICE Last administered on 02/04/20at 05:20; Start 02/02/20 at 20:15; Stop 02/10/20 at 15:23; Status DC Dextrose/Sodium Chloride 1,000 ml @ 250 mls/hr Q4H IV Last administered on 02/03/20at 07:59; Start 02/02/20 at 22:45; Stop 02/03/20 at 11:23; Status DC Insulin Human Regular 100 unit/ Sodium Chloride 101 ml @ 0 mls/hr CONT PRN IV SEE I/O RECORD; Start 02/03/20 at 02:15 Potassium Chloride/Water 100 ml @ 100 mls/hr PRN Q1HR PRN IV SEE COMMENTS; Start 02/03/20 at 05:00 Potassium Chloride/Water 100 ml @ 100 mls/hr Q1H IV Last administered on 02/03/20at 07:58; Start 02/03/20 at 05:00; Stop 02/03/20 at 08:59; Status DC Insulin Glargine (Lantus Syringe) 18 unit BID SQ Last administered on 02/10/20at 08:57; Start 02/03/20 at 09:00; Stop 02/10/20 at 11:00; Status DC Insulin Human Lispro (HumaLOG) 0-9 UNITS Q6HRS SQ Last administered on 02/11/20at 06:18; Start 02/03/20 at 12:00 Dextrose (Dextrose 50%-Water Syringe) 12.5 gm PRN Q15MIN PRN IV SEE COMMENTS; Start 02/03/20 at 06:15 Sodium Chloride 1,000 ml @ 125 mls/hr 1X ONCE IV Last administered on 02/03/20at 12:01; Start 02/03/20 at 11:30; Stop 02/03/20 at 19:29; Status DC Vecuronium [place] (Norcuron Bolus) 10 mg PRN Q6HRS PRN IV SEDATION Last administered on 02/04/20at 12:09; Start 02/04/20 at 07:30; Stop 02/04/20 at 19:30; Status DC Potassium Chloride/Water 100 ml @ 100 mls/hr 1X ONCE IV Last administered on 02/04/20at 10:04; Start 02/04/20 at 10:00; Stop 02/04/20 at 10:59; Status DC Tocilizumab 400 mg/Sodium Chloride 100 ml @ 100 mls/hr 1X ONCE IV Last administered on 02/04/20at 14:53; Start 02/04/20 at 13:00; Stop 02/04/20 at 13:59; Status DC Enoxaparin Sodium (Lovenox 40mg Syringe) 40 mg BID SQ Last administered on 02/11/20at 07:56; Start 02/04/20 at 21:00 Sodium Chloride 1,000 ml @ 125 mls/hr Q8H IV Last administered on 02/10/20at 02:10; Start 02/04/20 at 16:00; Stop 02/10/20 at 08:45; Status DC Vecuronium [place] (Norcuron Bolus) 10 mg PRN Q1HR PRN IV SEDATION Last administered on 02/09/20at 12:12; Start 02/04/20 at 19:30 Docusate Sodium (Colace Solution) 100 mg DAILY PO Last administered on 02/11/20at 07:53; Start 02/05/20 at 09:00 Norepinephrine Bitartrate 8 mg/ Dextrose 258 ml @ 15.519 mls/ hr CONT PRN IV PER PROTOCOL Last administered on 02/07/20at 02:51; Start 02/04/20 at 22:30 Potassium Bicarbonate (Potassium Effervescent Tablet) 40 meq 1X ONCE PO Last administered on 02/05/20at 08:26; Start 02/05/20 at 07:45; Stop 02/05/20 at 07:46; Status DC Midazolam HCl 100 mg/Sodium Chloride 100 ml @ 1 mls/hr CONT PRN IV . Last administered on 02/10/20at 11:52; Start 02/05/20 at 10:00 Methylprednisolone Sodium Succinate (SOLU-Medrol 40MG VIAL) 40 mg Q8HRS IV Last administered on 02/11/20at 06:21; Start 02/05/20 at 14:00 Hydralazine HCl (Apresoline Inj) 10 mg PRN Q4HRS PRN IVP ELEVATED BP, SEE COMMENTS Last administered on 02/09/20at 02:15; Start 02/05/20 at 17:00; Stop 02/09/20 at 09:08; Status DC Fentanyl Citrate 55 ml @ 1.98 mls/hr CONT PRN IV SEE PROTOCOL Last administered on 02/10/20at 19:38; Start 02/06/20 at 11:00 Furosemide (Lasix) 20 mg 1X ONCE IVP Last administered on 02/06/20at 14:08; Start 02/06/20 at 14:00; Stop 02/06/20 at 14:01; Status DC Phenylephrine HCl 50 mg/Sodium Chloride 255 ml @ 13.372 mls/ hr CONT PRN IV SEE I/O RECORD Last administered on 02/07/20at 05:51; Start 02/07/20 at 05:45 Furosemide (Lasix) 20 mg 1X ONCE IVP Last administered on 02/07/20at 13:12; Start 02/07/20 at 13:15; Stop 02/07/20 at 13:16; Status DC Nicardipine HCl 50 mg/Sodium Chloride 250 ml @ 25 mls/hr CONT PRN IV SEE I/O RECORD Last administered on 02/11/20at 04:37; Start 02/08/20 at 10:15 Potassium Chloride/Water 100 ml @ 100 mls/hr Q1H IV Last administered on 01/18 10/08at 18:17; Start 02/08/20 at 16:00; Stop 02/08/20 at 17:59; Status DC Metoprolol Tartrate (Lopressor Vial) 5 mg Q6HRS IVP Last administered on 02/10/20at 11:56; Start 02/08/20 at 18:00; Stop 02/10/20 at 15:23; Status DC Hydralazine HCl (Apresoline Inj) 10 mg PRN Q4HRS PRN IVP ELEVATED BP, SEE COMMENTS Last administered on 02/10/20at 16:31; Start 02/08/20 at 17:15 Lorazepam 40 mg/ Sodium Chloride 270 ml @ 0 mls/hr CONT PRN IV SEE PROTOCOL Last administered on 02/11/20at 04:35; Start 02/09/20 at 09:00 Sodium Bicarbonate (Sodium Bicarb Adult 8.4% Syr) 100 meq 1X ONCE IV Last administered on 02/09/20at 09:18; Start 02/09/20 at 09:00; Stop 02/09/20 at 09:03; Status DC Potassium Chloride/Water 100 ml @ 100 mls/hr 1X ONCE IV Last administered on 02/09/20at 11:35; Start 02/09/20 at 11:00; Stop 02/09/20 at 11:59; Status DC Vecuronium [place] 50 mg/ Miscellaneous 50 ml @ 4.464 mls/ hr CONT PRN IV SEE I/O RECORD Last administered on 02/11/20at 01:52; Start 02/09/20 at 12:15 Albumin Human 250 ml @ 62.5 mls/hr 1X ONCE IV Last administered on 02/10/20at 08:56; Start 02/10/20 at 08:45; Stop 02/10/20 at 12:44; Status DC Sodium Bicarbonate (Sodium Bicarb Adult 8.4% Syr) 100 meq 1X ONCE IV Last administered on 02/10/20at 08:56; Start 02/10/20 at 08:45; Stop 02/10/20 at 08:46; Status DC Furosemide (Lasix) 40 mg 1X ONCE IVP Last administered on 02/10/20at 10:57; Start 02/10/20 at 10:45; Stop 02/10/20 at 10:46; Status DC Insulin Glargine (Lantus Syringe) 24 unit BID SQ Last administered on 02/10/20at 21:03; Start 02/10/20 at 21:00 Isosorbide Dinitrate (Isordil) 20 mg TID PO Last administered on 02/11/20at 07:55; Start 02/10/20 at 21:00 Labetalol HCl (Normodyne Iv Push) 20 mg PRN Q4HRS PRN IVP HYPERTENSION, 2ND CHOICE; Start 02/10/20 at 15:30 Metoprolol Tartrate (Lopressor Vial) 10 mg Q6HRS IVP Last administered on 02/11/20at 06:22; Start 02/10/20 at 18:00 Metoprolol Tartrate (Lopressor Vial) 5 mg 1X ONCE IVP Last administered on 02/10/20at 15:46; Start 02/10/20 at 15:30; Stop 02/10/20 at 15:31; Status DC Isosorbide Dinitrate (Isordil) 10 mg 1X ONCE PO Last administered on 02/10/20at 15:44; Start 02/10/20 at 15:30; Stop 02/10/20 at 15:31; Status DC Active Scripts Active Aspirin 325 Mg Tablet 325 Mg PO DAILY Gwybda-Rugiwmln-Omzr 50-325-40 (Butalb/Acetaminophen/Caffeine) 1 Each Tablet 1-2 Tab PO PRN Q4HRS PRN MDD 6 tablets 2 Days Ondansetron Odt (Ondansetron) 4 Mg Tab.rapdis 1 Tab PO PRN Q6-8HRS PRN Hwvyck-Jgwqedps-Orkq 50-325-40 (Butalb/Acetaminophen/Caffeine) 1 Each Tablet 1 Each PO Q6HRS PRN Reported Venlafaxine Hcl Er (Venlafaxine Hcl) 150 Mg Tab.er.24 1 Tab PO BID Novolog (Insulin Aspart) 100 Unit/1 Ml Cartridge 25 Unit SQ TIDWMEALS Metformin Hcl 1,000 Mg Tablet 1,000 Mg PO BIDWMEALS Zofran (Ondansetron Hcl) 4 Mg Tablet 1 Tab PO Q6HRS Terazosin Hcl 2 Mg Capsule 2 Cap PO QHS Lantus Solostar (Insulin Glargine,Hum.rec.anlog) 100 Unit/1 Ml Insuln.pen 80 Unit SQ QHS Metoprolol Tartrate 50 Mg Tablet 1 Tab PO BID Omeprazole 20 Mg Capsule.dr 20 Mg PO BID Lisinopril 40 Mg Tablet 1 Tab PO DAILY Imitrex (Sumatriptan Succinate) 50 Mg Tablet 50 Mg PO PRN BID PRN Hydrochlorothiazide Tablet (Hydrochlorothiazide) 12.5 Mg Tablet 25 Mg PO DAILY Meclizine Hcl 25 Mg Tablet 25 Mg PO PRN TID PRN 90 Days Patanol (Olopatadine Hcl) 5 Ml Drops 1 Drop EACHEYE BID Atorvastatin Calcium 20 Mg Tablet 1 Tab PO DAILY Isosorbide Mononitrate 20 Mg Tablet 20 Mg PO BID Amlodipine Besylate 10 Mg Tablet 10 Mg PO HS Isosorbide Dinitrate 30 Mg Tablet 20 Mg PO DAILY Hydrochlorothiazide Tablet (Hydrochlorothiazide) 25 Mg Tablet 25 Mg PO DAILY Vitals/I & O Vital Sign - Last 24 Hours 02/10/20 02/10/20 02/10/2024/20 10:00 11:00 11:15 11:56 Pulse 96 103 98 Resp 26 B/P (MAP) 134/56 (82) 146/58 (87) 126/54 Pulse Ox 94 94 94 O2 Delivery Ventilator Ventilator Ventilator 02/10/20 02/10/20 02/10/20 02/10/20 12:00 12:00 12:00 13:00 Temp 98.6 98.6 Pulse 88 99 Resp 26 B/P (MAP) 123/58 (79) 157/62 (93) Pulse Ox 94 93 O2 Delivery Ventilator Mechanical Ventilator Ventilator 02/10/20 02/10/20 02/10/20 02/10/20 13:53 14:00 15:00 15:39 Pulse 103 104 106 Resp B/P (MAP) 151/60 136/56 (82) 158/61 (93) Pulse Ox 92 92 92 O2 Delivery Ventilator Ventilator Ventilator 02/10/20 02/10/20 02/10/20 02/10/20 15:44 15:46 16:00 16:00 Temp 99.1 99.1 Pulse 103 103 90 Resp 26 B/P (MAP) 155/61 155/61 141/62 (88) Pulse Ox 92 O2 Delivery Ventilator 02/10/20 02/10/20 02/10/20 02/10/20 16:00 16:31 17:00 17:48 Pulse 99 108 104 Resp 26 B/P (MAP) 163/67 161/64 (96) 164/79 Pulse Ox 91 O2 Delivery Mechanical Ventilator Ventilator 02/10/20 02/10/20 02/10/20 02/10/20 18:00 19:00 19:38 20:00 Pulse 98 110 Resp 26 B/P (MAP) 139/66 (90) 165/64 (97) Pulse Ox 91 91 91 O2 Delivery Ventilator Ventilator Mechanical Ventilator O2 Flow Rate 15.0 02/10/20 02/10/20 02/10/20 02/10/20 20:00 20:00 20:00 20:15 Temp 97.8 97.8 Pulse 119 Resp 26 B/P (MAP) 176/66 (102) 176/66 (102) Pulse Ox 92 92 O2 Delivery Ventilator Mechanical Ventilator Ventilator 02/10/20 02/10/20 02/10/20 02/10/20 20:48 21:00 21:00 21:02 Pulse 110 118 110 Resp B/P (MAP) 165/64 155/62 (93) 165/64 Pulse Ox 92 91 O2 Delivery Ventilator O2 Flow Rate 15.0 02/10/20 02/10/20 02/10/20 02/10/20 22:00 23:00 23:59 23:59 Pulse 116 113 Resp B/P (MAP) 141/59 (86) 142/62 (88) 136/58 (84) Pulse Ox 87 90 O2 Delivery Ventilator Ventilator Mechanical Ventilator 02/10/20 02/11/20 02/11/20 02/11/20 23:59 00:00 00:26 01:00 Temp 98.7 98.7 Pulse 112 112 111 Resp 27 B/P (MAP) 146/61 (89) 136/58 150/61 (90) Pulse Ox 90 90 91 O2 Delivery Ventilator Ventilator Ventilator 02/11/20 02/11/20 02/11/20 02/11/20 02:00 03:00 04:00 04:00 Temp 97.8 97.8 Pulse 110 109 109 Resp 26 B/P (MAP) 144/63 (90) 144/62 (89) 146/69 (94) 146/69 (94) Pulse Ox 90 90 91 O2 Delivery Ventilator Ventilator Ventilator 02/11/20 02/11/20 02/11/20 02/11/20 04:00 04:39 05:00 06:00 Pulse 106 108 Resp B/P (MAP) 154/64 (94) 161/65 (97) Pulse Ox 91 93 90 O2 Delivery Mechanical Ventilator Ventilator Ventilator 02/11/20 02/11/20 02/11/20 02/11/20 06:22 07:00 07:10 07:54 Pulse 108 93 89 Resp B/P (MAP) 161/65 170/62 (98) 161/62 Pulse Ox 87 90 O2 Delivery Ventilator Ventilator 02/11/20 02/11/20 02/11/20 02/11/20 07:55 08:00 08:00 08:00 Temp 97.6 97.6 Pulse 87 84 Resp 26 B/P (MAP) 148/55 146/54 (84) Pulse Ox 89 O2 Delivery Mechanical Ventilator Ventilator 02/11/20 09:00 Pulse 94 Resp 26 B/P (MAP) 158/54 (88) Pulse Ox 94 O2 Delivery Ventilator Intake and Output 02/10/20 02/10/20 02/11/20 14:59 22:59 06:59 Intake Total 1168 ml 2432.48 ml 2116 ml Output Total 800 ml 550 ml 375 ml Balance 368 ml 1882.48 ml 1741 ml RENU TAI MD Feb 11, 2020 09:34
[2020-02-11] MEDS: INSULIN GLARGINE SYRINGE. SQ SCH ×2 (09:52→21:28)
[2020-02-11] MEDS: MIDAZOLAM HCL 100 MG in IV NORMAL SALINE 100ML 100 ML IV PRN ×2 (09:54→19:48)
--- NOTE | 2020-02-11 09:58 | PDOC ---
CARDIO Progress Notes Date and Time Date of Service 02/11/2020 Time of Evaluation 0940 Subjective Subjective: Other Vitals Vitals Vital Signs Date Time Temp Pulse Resp B/P (MAP) Pulse Ox O2 Delivery O2 Flow Rate FiO2 02/11/20 09:00 94 26 158/54 (88) 94 Ventilator 02/11/20 08:00 97.6 97.6 02/10/20 20:48 15.0 Weight Weight [ ] Input and Output Intake and Output Intake and Output 02/11/20 07:00 Intake Total 5716.48 ml Output Total 1725 ml Balance 3991.48 ml Intake IV Total 3711.48 ml Tube Feeding 1807 ml Other 198 ml Output Urine Total 1725 ml Laboratory Labs Laboratory Tests Test 02/10/20 12:25 02/10/20 13:00 02/10/20 16:40 02/10/20 17:35 Glucose (Fingerstick) 298 mg/dL (70-99) 283 mg/dL (70-99) Urine Collection Type Unknown Urine Color Red Urine Clarity Turbid Urine pH 5.0 (<5.0-8.0) Urine Specific [place] 1.015 (1.000-1.030) Urine Protein mg/dL (NEG-TRACE) Urine Glucose (UA) mg/dL (NEG) Urine Ketones (Stick) mg/dL (NEG) Urine Blood (NEG) Urine Nitrite (NEG) Urine Bilirubin (NEG) Urine Urobilinogen Dipstick mg/dL (0.2 mg/dL) Urine Leukocyte Esterase (NEG) Urine RBC Tntc /HPF (0-2) Urine WBC 5-10 /HPF (0-4) Urine Bacteria Moderate /HPF (0-FEW) Ionized Calcium 1.06 mmol/L (1.13-1.32) Test 02/10/20 20:59 02/11/20 00:09 02/11/20 06:17 02/11/20 06:30 Glucose (Fingerstick) 336 mg/dL (70-99) 390 mg/dL (70-99) 399 mg/dL (70-99) White Blood Count 26.1 x10^3/uL (4.0-11.0) Red Blood Count 4.24 x10^6/uL (4.30-5.70) Hemoglobin 12.4 g/dL (13.0-17.5) Hematocrit 37.2 % (39.0-53.0) Mean Corpuscular Volume 88 fL (79-100) Mean Corpuscular Hemoglobin 29 pg (25-35) Mean Corpuscular Hemoglobin Concent 33 g/dL (31-37) Red Cell Distribution Width 14.8 % (11.5-14.5) Platelet Count 265 x10^3/uL (140-400) Neutrophils (%) (Auto) 86 % (31-73) Lymphocytes (%) (Auto) 3 % (24-48) Monocytes (%) (Auto) 10 % (0-9) Eosinophils (%) (Auto) 0 % (0-3) Basophils (%) (Auto) 1 % (0-3) Neutrophils # (Auto) 22.5 x10^3/uL (1.8-7.7) Lymphocytes # (Auto) 0.8 x10^3/uL (1.0-4.8) Monocytes # (Auto) 2.6 x10^3/uL (0.0-1.1) Eosinophils # (Auto) 0.0 x10^3/uL (0.0-0.7) Basophils # (Auto) 0.3 x10^3/uL (0.0-0.2) Segmented Neutrophils % 83 % (35-66) Band Neutrophils % 5 % (0-9) Lymphocytes % 5 % (24-48) Monocytes % 5 % (0-10) Metamyelocytes % 2 % (0-0) Nucleated Red Blood Cells 1 Platelet Estimate Adequate (ADEQUATE) Sodium Level 138 mmol/L (136-145) Potassium Level 4.1 mmol/L (3.5-5.1) Chloride Level 103 mmol/L (98-107) Carbon Dioxide Level 24 mmol/L (21-32) Anion Gap 11 (6-14) Blood Urea Nitrogen 55 mg/dL (8-26) Creatinine 1.7 mg/dL (0.7-1.3) Estimated GFR (Cockcroft-Gault) 52.5 BUN/Creatinine Ratio 32 (6-20) Glucose Level 441 mg/dL (70-99) Calcium Level 6.8 mg/dL (8.5-10.1) Total Bilirubin 0.2 mg/dL (0.2-1.0) Aspartate Amino Transf (AST/SGOT) 22 U/L (15-37) Alanine Aminotransferase (ALT/SGPT) 19 U/L (16-63) Alkaline Phosphatase 236 U/L (46-116) Total Protein 5.1 g/dL (6.4-8.2) Albumin 2.0 g/dL (3.4-5.0) Albumin/Globulin Ratio 0.6 (1.0-1.7) Thyroid Stimulating Hormone (TSH) 1.167 uIU/mL (0.358-3.74) Test 02/11/20 07:00 O2 Saturation 77 % (92-99) Arterial Blood pH 7.26 (7.35-7.45) Arterial Blood pCO2 at Patient Temp 39 mmHg (35-46) Arterial Blood pO2 at Patient Temp 47 mmHg (75-108) Arterial Blood HCO3 17 mmol/L (21-28) Arterial Blood Base Excess -10 mmol/L (-3-3) FiO2 100 Microbiology Micro Microbiology 02/02/20 Blood Culture - Final, Complete NO GROWTH AFTER 5 DAYS Physical Exam Chest: Symmetric LUNGS: Other (intubated with vent) Heart: RRR (SR) Abdomen: Other (obese) Extremities: Other (peripheral edema) Neurology: other (sedated) Assessment Assessment 1. Acute respiratory failure secondary to COVID PNA, intubated/vent 2. Leukocytosis/sepsis 3. CHRISTIANNE; Cr now at 1.7 4. Hypertensive urgency; BP stable and controlled. No arrhythmias 6. Hyperlipidemia 7. DM2: labile BG per PCP 8. Hypokalemia: resolved 9. Prior CVA 10. H/o seizures 11. Acute CHF with possible diastolic dysfunction with ARDS and volume repletion. Recommendations Still needing cardene. Will titrate off as able. Will increase isordil, start PO hydralazine via NG. Clonidine PRN. Lasix therapy. DC HCTZ. Continue other regimen. Repeat BMP this afternoon. May need to hold lisinopril if Cr continues to increase. Ongoing treatment of COVID PNA, ARDS as per pulm, IM Secondary prevention measures as tolerated. ASA. Outpatient echo when recovered from COVID Supportive care from a CV standpoint. Justicifation of Admission Dx: Justifications for Admission: Justification of Admission Dx: Yes Sepsis: Altered Mental Status ADAMA GUZMAN APRN Feb 11, 2020 09:58
--- NOTE | 2020-02-11 10:33 | PDOC ---
PULMONARY PROGRESS NOTES Subjective Call this morning with arterial blood gas, increase PEEP to 18 increase I to E ratio to 1-1 Vitals Vital Signs Date Time Temp Pulse Resp B/P (MAP) Pulse Ox O2 Delivery O2 Flow Rate FiO2 02/11/20 09:00 94 26 158/54 (88) 94 Ventilator 02/11/20 08:00 97.6 97.6 02/10/20 20:48 15.0 Comments ros unable to obtain sedated on vent visual exam done due to COVID pandemia nc at appears comfortable no paradoxical abd motion ekg nsr no rash AC mode, no soa sedated/no edema Labs Laboratory Tests Test 02/09/20 11:54 02/09/20 17:19 02/09/20 21:57 02/09/20 23:05 Glucose (Fingerstick) 300 mg/dL (70-99) 212 mg/dL (70-99) 261 mg/dL (70-99) O2 Saturation 82 % (92-99) Arterial Blood pH 7.30 (7.35-7.45) Arterial Blood pCO2 at Patient Temp 47 mmHg (35-46) Arterial Blood pO2 at Patient Temp 51 mmHg (75-108) Arterial Blood HCO3 22 mmol/L (21-28) Arterial Blood Base Excess -4 mmol/L (-3-3) FiO2 100 Test 02/10/20 00:00 02/10/20 05:40 02/10/20 05:43 02/10/20 08:15 Glucose (Fingerstick) 309 mg/dL (70-99) 295 mg/dL (70-99) White Blood Count 21.8 x10^3/uL (4.0-11.0) Red Blood Count 4.41 x10^6/uL (4.30-5.70) Hemoglobin 12.7 g/dL (13.0-17.5) Hematocrit 38.7 % (39.0-53.0) Mean Corpuscular Volume 88 fL (79-100) Mean Corpuscular Hemoglobin 29 pg (25-35) Mean Corpuscular Hemoglobin Concent 33 g/dL (31-37) Red Cell Distribution Width 14.3 % (11.5-14.5) Platelet Count 248 x10^3/uL (140-400) Neutrophils (%) (Auto) 87 % (31-73) Lymphocytes (%) (Auto) 4 % (24-48) Monocytes (%) (Auto) 9 % (0-9) Eosinophils (%) (Auto) 0 % (0-3) Basophils (%) (Auto) 0 % (0-3) Neutrophils # (Auto) 19.1 x10^3/uL (1.8-7.7) Lymphocytes # (Auto) 0.9 x10^3/uL (1.0-4.8) Monocytes # (Auto) 1.9 x10^3/uL (0.0-1.1) Eosinophils # (Auto) 0.0 x10^3/uL (0.0-0.7) Basophils # (Auto) 0.0 x10^3/uL (0.0-0.2) Sodium Level 137 mmol/L (136-145) Potassium Level 3.7 mmol/L (3.5-5.1) Chloride Level 103 mmol/L (98-107) Carbon Dioxide Level 23 mmol/L (21-32) Anion Gap 11 (6-14) Blood Urea Nitrogen 39 mg/dL (8-26) Creatinine 1.3 mg/dL (0.7-1.3) Estimated GFR (Cockcroft-Gault) 71.6 Glucose Level 320 mg/dL (70-99) Calcium Level 6.7 mg/dL (8.5-10.1) O2 Saturation 82 % (92-99) Arterial Blood pH 7.29 (7.35-7.45) Arterial Blood pCO2 at Patient Temp 40 mmHg (35-46) Arterial Blood pO2 at Patient Temp 52 mmHg (75-108) Arterial Blood HCO3 18 mmol/L (21-28) Arterial Blood Base Excess -8 mmol/L (-3-3) FiO2 100% Test 02/10/20 12:25 02/10/20 13:00 02/10/20 16:40 02/10/20 17:35 Glucose (Fingerstick) 298 mg/dL (70-99) 283 mg/dL (70-99) Urine Collection Type Unknown Urine Color Red Urine Clarity Turbid Urine pH 5.0 (<5.0-8.0) Urine Specific [place] 1.015 (1.000-1.030) Urine Protein mg/dL (NEG-TRACE) Urine Glucose (UA) mg/dL (NEG) Urine Ketones (Stick) mg/dL (NEG) Urine Blood (NEG) Urine Nitrite (NEG) Urine Bilirubin (NEG) Urine Urobilinogen Dipstick mg/dL (0.2 mg/dL) Urine Leukocyte Esterase (NEG) Urine RBC Tntc /HPF (0-2) Urine WBC 5-10 /HPF (0-4) Urine Bacteria Moderate /HPF (0-FEW) Ionized Calcium 1.06 mmol/L (1.13-1.32) Test 02/10/20 20:59 02/11/20 00:09 02/11/20 06:17 02/11/20 06:30 Glucose (Fingerstick) 336 mg/dL (70-99) 390 mg/dL (70-99) 399 mg/dL (70-99) White Blood Count 26.1 x10^3/uL (4.0-11.0) Red Blood Count 4.24 x10^6/uL (4.30-5.70) Hemoglobin 12.4 g/dL (13.0-17.5) Hematocrit 37.2 % (39.0-53.0) Mean Corpuscular Volume 88 fL (79-100) Mean Corpuscular Hemoglobin 29 pg (25-35) Mean Corpuscular Hemoglobin Concent 33 g/dL (31-37) Red Cell Distribution Width 14.8 % (11.5-14.5) Platelet Count 265 x10^3/uL (140-400) Neutrophils (%) (Auto) 86 % (31-73) Lymphocytes (%) (Auto) 3 % (24-48) Monocytes (%) (Auto) 10 % (0-9) Eosinophils (%) (Auto) 0 % (0-3) Basophils (%) (Auto) 1 % (0-3) Neutrophils # (Auto) 22.5 x10^3/uL (1.8-7.7) Lymphocytes # (Auto) 0.8 x10^3/uL (1.0-4.8) Monocytes # (Auto) 2.6 x10^3/uL (0.0-1.1) Eosinophils # (Auto) 0.0 x10^3/uL (0.0-0.7) Basophils # (Auto) 0.3 x10^3/uL (0.0-0.2) Segmented Neutrophils % 83 % (35-66) Band Neutrophils % 5 % (0-9) Lymphocytes % 5 % (24-48) Monocytes % 5 % (0-10) Metamyelocytes % 2 % (0-0) Nucleated Red Blood Cells 1 Platelet Estimate Adequate (ADEQUATE) Sodium Level 138 mmol/L (136-145) Potassium Level 4.1 mmol/L (3.5-5.1) Chloride Level 103 mmol/L (98-107) Carbon Dioxide Level 24 mmol/L (21-32) Anion Gap 11 (6-14) Blood Urea Nitrogen 55 mg/dL (8-26) Creatinine 1.7 mg/dL (0.7-1.3) Estimated GFR (Cockcroft-Gault) 52.5 BUN/Creatinine Ratio 32 (6-20) Glucose Level 441 mg/dL (70-99) Calcium Level 6.8 mg/dL (8.5-10.1) Total Bilirubin 0.2 mg/dL (0.2-1.0) Aspartate Amino Transf (AST/SGOT) 22 U/L (15-37) Alanine Aminotransferase (ALT/SGPT) 19 U/L (16-63) Alkaline Phosphatase 236 U/L (46-116) Total Protein 5.1 g/dL (6.4-8.2) Albumin 2.0 g/dL (3.4-5.0) Albumin/Globulin Ratio 0.6 (1.0-1.7) Thyroid Stimulating Hormone (TSH) 1.167 uIU/mL (0.358-3.74) Test 02/11/20 07:00 O2 Saturation 77 % (92-99) Arterial Blood pH 7.26 (7.35-7.45) Arterial Blood pCO2 at Patient Temp 39 mmHg (35-46) Arterial Blood pO2 at Patient Temp 47 mmHg (75-108) Arterial Blood HCO3 17 mmol/L (21-28) Arterial Blood Base Excess -10 mmol/L (-3-3) FiO2 100 Laboratory Tests Test 02/10/20 12:25 02/10/20 13:00 02/10/20 16:40 02/10/20 17:35 Glucose (Fingerstick) 298 mg/dL (70-99) 283 mg/dL (70-99) Urine Collection Type Unknown Urine Color Red Urine Clarity Turbid Urine pH 5.0 (<5.0-8.0) Urine Specific [place] 1.015 (1.000-1.030) Urine Protein mg/dL (NEG-TRACE) Urine Glucose (UA) mg/dL (NEG) Urine Ketones (Stick) mg/dL (NEG) Urine Blood (NEG) Urine Nitrite (NEG) Urine Bilirubin (NEG) Urine Urobilinogen Dipstick mg/dL (0.2 mg/dL) Urine Leukocyte Esterase (NEG) Urine RBC Tntc /HPF (0-2) Urine WBC 5-10 /HPF (0-4) Urine Bacteria Moderate /HPF (0-FEW) Ionized Calcium 1.06 mmol/L (1.13-1.32) Test 02/10/20 20:59 02/11/20 00:09 02/11/20 06:17 02/11/20 06:30 Glucose (Fingerstick) 336 mg/dL (70-99) 390 mg/dL (70-99) 399 mg/dL (70-99) White Blood Count 26.1 x10^3/uL (4.0-11.0) Red Blood Count 4.24 x10^6/uL (4.30-5.70) Hemoglobin 12.4 g/dL (13.0-17.5) Hematocrit 37.2 % (39.0-53.0) Mean Corpuscular Volume 88 fL (79-100) Mean Corpuscular Hemoglobin 29 pg (25-35) Mean Corpuscular Hemoglobin Concent 33 g/dL (31-37) Red Cell Distribution Width 14.8 % (11.5-14.5) Platelet Count 265 x10^3/uL (140-400) Neutrophils (%) (Auto) 86 % (31-73) Lymphocytes (%) (Auto) 3 % (24-48) Monocytes (%) (Auto) 10 % (0-9) Eosinophils (%) (Auto) 0 % (0-3) Basophils (%) (Auto) 1 % (0-3) Neutrophils # (Auto) 22.5 x10^3/uL (1.8-7.7) Lymphocytes # (Auto) 0.8 x10^3/uL (1.0-4.8) Monocytes # (Auto) 2.6 x10^3/uL (0.0-1.1) Eosinophils # (Auto) 0.0 x10^3/uL (0.0-0.7) Basophils # (Auto) 0.3 x10^3/uL (0.0-0.2) Segmented Neutrophils % 83 % (35-66) Band Neutrophils % 5 % (0-9) Lymphocytes % 5 % (24-48) Monocytes % 5 % (0-10) Metamyelocytes % 2 % (0-0) Nucleated Red Blood Cells 1 Platelet Estimate Adequate (ADEQUATE) Sodium Level 138 mmol/L (136-145) Potassium Level 4.1 mmol/L (3.5-5.1) Chloride Level 103 mmol/L (98-107) Carbon Dioxide Level 24 mmol/L (21-32) Anion Gap 11 (6-14) Blood Urea Nitrogen 55 mg/dL (8-26) Creatinine 1.7 mg/dL (0.7-1.3) Estimated GFR (Cockcroft-Gault) 52.5 BUN/Creatinine Ratio 32 (6-20) Glucose Level 441 mg/dL (70-99) Calcium Level 6.8 mg/dL (8.5-10.1) Total Bilirubin 0.2 mg/dL (0.2-1.0) Aspartate Amino Transf (AST/SGOT) 22 U/L (15-37) Alanine Aminotransferase (ALT/SGPT) 19 U/L (16-63) Alkaline Phosphatase 236 U/L (46-116) Total Protein 5.1 g/dL (6.4-8.2) Albumin 2.0 g/dL (3.4-5.0) Albumin/Globulin Ratio 0.6 (1.0-1.7) Thyroid Stimulating Hormone (TSH) 1.167 uIU/mL (0.358-3.74) Test 02/11/20 07:00 O2 Saturation 77 % (92-99) Arterial Blood pH 7.26 (7.35-7.45) Arterial Blood pCO2 at Patient Temp 39 mmHg (35-46) Arterial Blood pO2 at Patient Temp 47 mmHg (75-108) Arterial Blood HCO3 17 mmol/L (21-28) Arterial Blood Base Excess -10 mmol/L (-3-3) FiO2 100 Medications Active Scripts Medications Dose Route/Sig Max Daily Dose Days Date Category Aspirin 325 Mg Tablet 325 Mg PO DAILY 03/20/19 Rx Venlafaxine Hcl Er (Venlafaxine Hcl) 150 Mg Tab.er.24 1 Tab PO BID 03/18/19 Reported Novolog (Insulin Aspart) 100 Unit/1 Ml Cartridge 25 Unit SQ TIDWMEALS 03/18/19 Reported Metformin Hcl 1,000 Mg Tablet 1,000 Mg PO BIDWMEALS 03/18/19 Reported Zofran (Ondansetron Hcl) 4 Mg Tablet 1 Tab PO Q6HRS 03/18/19 Reported Terazosin Hcl 2 Mg Capsule 2 Cap PO QHS 03/18/19 Reported Lantus Solostar (Insulin Glargine,Hum.rec.anlog) 100 Unit/1 Ml Insuln.pen 80 Unit SQ QHS 03/18/19 Reported Metoprolol Tartrate 50 Mg Tablet 1 Tab PO BID 03/18/19 Reported Omeprazole 20 Mg Capsule.dr 20 Mg PO BID 03/18/19 Reported Lisinopril 40 Mg Tablet 1 Tab PO DAILY 03/18/19 Reported Gaxqcr-Fwvpyrfk-Iudw 50-325-40 (Butalb/Acetaminophen/Caffeine) 1 Each Tablet 1-2 Tab PO PRN Q4HRS PRN MDD 6 tablets 2 07/30/18 Rx Imitrex (Sumatriptan Succinate) 50 Mg Tablet 50 Mg PO PRN BID PRN 01/15/15 Reported Hydrochlorothiazide Tablet (Hydrochlorothiazide) 12.5 Mg Tablet 25 Mg PO DAILY 01/15/15 Reported Meclizine Hcl 25 Mg Tablet 25 Mg PO PRN TID PRN 90 01/15/15 Reported Patanol (Olopatadine Hcl) 5 Ml Drops 1 Drop EACHEYE BID 01/11/15 Reported Atorvastatin Calcium 20 Mg Tablet 1 Tab PO DAILY 01/11/15 Reported Isosorbide Mononitrate 20 Mg Tablet 20 Mg PO BID 08/22/13 Reported Amlodipine Besylate 10 Mg Tablet 10 Mg PO HS 08/22/13 Reported Isosorbide Dinitrate 30 Mg Tablet 20 Mg PO DAILY 07/15/19 Reported Hydrochlorothiazide Tablet (Hydrochlorothiazide) 25 Mg Tablet 25 Mg PO DAILY 07/15/19 Reported Ondansetron Odt (Ondansetron) 4 Mg Tab.rapdis 1 Tab PO PRN Q6-8HRS PRN 01/31/19 Rx Ltoxve-Gmlgplsf-Gbfo 50-325-40 (Butalb/Acetaminophen/Caffeine) 1 Each Tablet 1 Each PO Q6HRS PRN 01/31/19 Rx Comments mpression: 1. Increased diffuse interstitial and alveolar opacities. Impression . 1. Acute hypoxic respiratory failure secondary to COVID-19 pneumonia and ARDS 2. COVID-19 sepsis. 3. Abnormal chest x-ray 4. 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 5. Diabetic ketoacidosis, now anion gap closed and being monitored by PCP.BS better 6. Hypernatremia, s/p IV fluids. resolved 7. Hypertension/ cardene 8. Possible acute pulmonary emboli Plan . Patient not doing any better today, will initiate full dose heparin for presumptive PE Continue assist control ventilation 18 of PEEP Broad-spectrum antibiotics PRN Lasix Status post convalescent plasma status post Tocilizumab Sedate, Total cumulative critical care time of 30 minutes, reviewing data, chest x-ray, and labs. KIMBERLY LOPEZ MD Feb 11, 2020 10:33
[2020-02-11] MEDS: FUROSEMIDE 40 MG/4 ML VIAL. IVP SCH (11:30)
[2020-02-11] MEDS: VENLAFAXINE 75 MG TABLET. PO SCH ×2 (11:30→21:27)
--- NOTE | 2020-02-11 13:30 | NUR ---
SS following up with discharge planning. SS reviewed pt chart and discussed with pt RN. Pt remains on the vent at this time. COVID19 positive. Pt on IV Zosyn. SS will continue to follow for discharge planning.
[2020-02-11] MEDS: cloNIDine HCL 0.1 MG TABLET PO PRN (16:03)
[2020-02-11] MEDS ORDERED: HEPARIN for IV BOLUS 10,000 UNIT/10 ML VIAL. IV PRN ×2 (16:30)
[2020-02-11] MEDS: HEPARIN 25,000UTS/250ML PREMIX 250 ML IV PRN (16:59)
[2020-02-11] MEDS: fentaNYL HIGH DOSE PCA 55 ML IV PRN (19:54)
[2020-02-11] MEDS: ATORVASTATIN CALCIUM 20 MG TABLET PO SCH (21:27)
[2020-02-11] MEDS: amLODIPine BESYLATE 10 MG TABLET PO SCH (21:28)
[2020-02-12] VITALS (23 sets, daily range): BP systolic 120–166; BP diastolic 56–72
[2020-02-12] MEDS: PIPERACILLIN/TAZOBACTAM 3.375 GM in IV NORMAL SALINE 50ML 50 ML IV SCH ×4 (00:22→17:47)
[2020-02-12] MEDS: INSULIN LISPRO 300 UNITS/3 ML VIAL. SQ SCH ×4 (00:37→17:49)
[2020-02-12] MEDS: VECURONIUM BROMIDE 50 MG in TOTAL VOLUME 50 ML IV PRN ×4 (00:46→22:15)
[2020-02-12] MEDS: MIDAZOLAM HCL 100 MG in IV NORMAL SALINE 100ML 100 ML IV PRN ×2 (05:49→15:53)
[2020-02-12] MEDS: METOPROLOL TARTRATE 5 MG/5 ML VIAL. IVP SCH ×2 (05:51)
[2020-02-12] MEDS: methylPREDNISolone SOD SUCC PF 40 MG/ML VIAL. IV SCH ×3 (05:52→21:26)
[2020-02-12] MEDS: ISOSORBIDE DINITRATE 10 MG TABLET. PO SCH ×3 (06:00→20:43)
[2020-02-12 06:11] LABS: CALCIUM 7.3 mg/dL (8.5-10.1); CREATININE 1.9 mg/dL (0.7-1.3); GFR 46.2; POTASSIUM 4.3 mmol/L (3.5-5.1)
[2020-02-12] MEDS: LORazepam 40 MG in IV NORMAL SALINE 250ML 250 ML IV PRN ×3 (07:52→19:34)
[2020-02-12] MEDS: metFORMIN 500 MG TABLET PO SCH ×2 (08:00→16:40)
[2020-02-12] MEDS: PANTOPRAZOLE IV PUSH 40 MG VIAL. IVP SCH (08:28)
[2020-02-12] MEDS: SENNOSIDES/DOCUSATE 8.6/50MG TABLET. PO SCH ×2 (08:28→20:34)
[2020-02-12] MEDS: DOCUSATE 100 MG/10 ML SOLUTION. PO SCH (08:28)
[2020-02-12] MEDS: VENLAFAXINE 75 MG TABLET. PO SCH ×2 (08:28→20:34)
[2020-02-12] MEDS: ELECTROLYTE (ICU) PROTOCOL. MC SCH (08:29)
[2020-02-12] MEDS: KETOTIFEN FUMARATE 0.025% OPHTH SOLUTION BOTTLE. OU SCH ×2 (08:29→21:00)
[2020-02-12] MEDS: ASPIRIN 325 MG TABLET PO SCH (08:29)
[2020-02-12] MEDS: INSULIN GLARGINE SYRINGE. SQ SCH ×2 (08:30→21:25)
[2020-02-12 08:42] LABS: BASE EXCESS ABG -5 mmol/L (-3-3); HCO3 ABG 22 mmol/L (21-28); PCO2 ABG 44 mmHg (35-46); PO2 ABG 62 mmHg (75-108); SAT O2 ABG 90 % (92-99)
[2020-02-12] MEDS: FUROSEMIDE 40 MG/4 ML VIAL. IVP SCH (09:00)
--- NOTE | 2020-02-12 09:17 | PDOC ---
ADAMA GUZMAN BANK RECONCILIATOR 02/12/20 0917: CARDIO Progress Notes Date and Time Date of Service 02/12/2020 Time of Evaluation 0910 Subjective Subjective: Other Vitals Vitals Vital Signs Date Time Temp Pulse Resp B/P (MAP) Pulse Ox O2 Delivery O2 Flow Rate FiO2 02/12/20 08:26 98 Ventilator 02/12/20 06:00 88 28 153/65 (94) 02/12/20 04:00 98.2 98.2 02/11/20 20:29 15.0 Weight Weight [ ] Input and Output Intake and Output Intake and Output 02/12/20 07:00 Intake Total 3869.31 ml Output Total 1475 ml Balance 2394.31 ml Intake IV Total 2969.31 ml Tube Feeding 900 ml Output Urine Total 1475 ml Laboratory Labs Laboratory Tests Test 02/11/20 11:42 02/11/20 17:45 02/11/20 21:44 02/11/20 21:50 Glucose (Fingerstick) 326 mg/dL (70-99) 274 mg/dL (70-99) 241 mg/dL (70-99) Heparin Anti-Xa Act, Unfractionated > 1.10 IU/mL (0.30-0.70) Test 02/12/20 00:30 02/12/20 05:45 Glucose (Fingerstick) 236 mg/dL (70-99) 261 mg/dL (70-99) Heparin Anti-Xa Act, Unfractionated > 1.10 IU/mL (0.30-0.70) Sodium Level 140 mmol/L (136-145) Potassium Level 4.3 mmol/L (3.5-5.1) Chloride Level 105 mmol/L (98-107) Carbon Dioxide Level 22 mmol/L (21-32) Anion Gap 13 (6-14) Blood Urea Nitrogen 69 mg/dL (8-26) Creatinine 1.9 mg/dL (0.7-1.3) Estimated GFR (Cockcroft-Gault) 46.2 Glucose Level 272 mg/dL (70-99) Calcium Level 7.3 mg/dL (8.5-10.1) Magnesium Level 2.3 mg/dL (1.8-2.4) Microbiology Micro Microbiology 02/10/20 Urine Culture - Final, Complete 6/16/20 Blood Culture - Final, Complete NO GROWTH AFTER 5 DAYS Physical Exam Chest: Symmetric LUNGS: Other (intubated with vent) Heart: RRR (SR) Abdomen: Other (obese) Extremities: Other (peripheral edema) Neurology: other (sedated) Assessment Assessment 1. Acute respiratory failure secondary to COVID PNA, intubated/vent 2. Leukocytosis/sepsis 3. CHRISTIANNE; Cr now at 1.9 4. Hypertensive urgency; BP stable and controlled. No arrhythmias 6. Hyperlipidemia 7. DM2: labile BG per PCP 8. Hypokalemia: resolved 9. Prior CVA 10. H/o seizures 11. Acute CHF with possible diastolic dysfunction with ARDS and significant volume repletion. 12. Anasarca Recommendations Still needing cardene and multiple sedation. Will hold ACEi stop metoprolol will change to labetolol. Clonidine PRN. Continue lasix. Limited TTE if ok with protocol otherwise Outpatient echo when recovered from COVID Ongoing treatment of COVID PNA, ARDS as per pulm, IM Secondary prevention measures as tolerated. ASA. Supportive care from a CV standpoint. Justicifation of Admission Dx: Justifications for Admission: Justification of Admission Dx: Yes Sepsis: Altered Mental Status IDALMIS PARTIDA MD 02/12/20 1818: CARDIO Progress Notes Assessment Assessment Patient seen and evaluated Agree with our nurse practitioners assessment and plan. Acute respiratory failure secondary to COVID PNA, intubated/vent. Followed by the pulmonary service. Leukocytosis/sepsis CHRISTIANNE; Cr now at 1.9 Hypertensive urgency; BP stable and controlled. No arrhythmias Hyperlipidemia Prior CVA Acute CHF with possible diastolic dysfunction with ARDS and significant volume repletion. ADAMA GUZMAN APRN Feb 12, 2020 09:17 IDALMIS PARTIDA MD Feb 12, 2020 18:18
[2020-02-12] MEDS ORDERED: FUROSEMIDE 40 MG/4 ML VIAL. IVP ONE (09:30)
--- NOTE | 2020-02-12 09:31 | PDOC ---
PULMONARY PROGRESS NOTES Subjective Currently on 18 of PEEP 100% FiO2 Vitals Vital Signs Date Time Temp Pulse Resp B/P (MAP) Pulse Ox O2 Delivery O2 Flow Rate FiO2 02/12/20 08:26 98 Ventilator 02/12/20 06:00 88 28 153/65 (94) 02/12/20 04:00 98.2 98.2 02/11/20 20:29 15.0 Comments ros unable to obtain sedated on vent Visual exam performed due to COVID-19 pandemic Patient appears to be comfortable in sync with the ventilator, no significant Labs Laboratory Tests Test 02/10/20 12:25 02/10/20 13:00 02/10/20 16:40 02/10/20 17:35 Glucose (Fingerstick) 298 mg/dL (70-99) 283 mg/dL (70-99) Urine Collection Type Unknown Urine Color Red Urine Clarity Turbid Urine pH 5.0 (<5.0-8.0) Urine Specific [place] 1.015 (1.000-1.030) Urine Protein mg/dL (NEG-TRACE) Urine Glucose (UA) mg/dL (NEG) Urine Ketones (Stick) mg/dL (NEG) Urine Blood (NEG) Urine Nitrite (NEG) Urine Bilirubin (NEG) Urine Urobilinogen Dipstick mg/dL (0.2 mg/dL) Urine Leukocyte Esterase (NEG) Urine RBC Tntc /HPF (0-2) Urine WBC 5-10 /HPF (0-4) Urine Bacteria Moderate /HPF (0-FEW) Urine Osmolality 347 mOsmol/kg (.) Ionized Calcium 1.06 mmol/L (1.13-1.32) Test 02/10/20 20:59 02/11/20 00:09 02/11/20 06:17 02/11/20 06:30 Glucose (Fingerstick) 336 mg/dL (70-99) 390 mg/dL (70-99) 399 mg/dL (70-99) White Blood Count 26.1 x10^3/uL (4.0-11.0) Red Blood Count 4.24 x10^6/uL (4.30-5.70) Hemoglobin 12.4 g/dL (13.0-17.5) Hematocrit 37.2 % (39.0-53.0) Mean Corpuscular Volume 88 fL (79-100) Mean Corpuscular Hemoglobin 29 pg (25-35) Mean Corpuscular Hemoglobin Concent 33 g/dL (31-37) Red Cell Distribution Width 14.8 % (11.5-14.5) Platelet Count 265 x10^3/uL (140-400) Neutrophils (%) (Auto) 86 % (31-73) Lymphocytes (%) (Auto) 3 % (24-48) Monocytes (%) (Auto) 10 % (0-9) Eosinophils (%) (Auto) 0 % (0-3) Basophils (%) (Auto) 1 % (0-3) Neutrophils # (Auto) 22.5 x10^3/uL (1.8-7.7) Lymphocytes # (Auto) 0.8 x10^3/uL (1.0-4.8) Monocytes # (Auto) 2.6 x10^3/uL (0.0-1.1) Eosinophils # (Auto) 0.0 x10^3/uL (0.0-0.7) Basophils # (Auto) 0.3 x10^3/uL (0.0-0.2) Segmented Neutrophils % 83 % (35-66) Band Neutrophils % 5 % (0-9) Lymphocytes % 5 % (24-48) Monocytes % 5 % (0-10) Metamyelocytes % 2 % (0-0) Nucleated Red Blood Cells 1 Platelet Estimate Adequate (ADEQUATE) Sodium Level 138 mmol/L (136-145) Potassium Level 4.1 mmol/L (3.5-5.1) Chloride Level 103 mmol/L (98-107) Carbon Dioxide Level 24 mmol/L (21-32) Anion Gap 11 (6-14) Blood Urea Nitrogen 55 mg/dL (8-26) Creatinine 1.7 mg/dL (0.7-1.3) Estimated GFR (Cockcroft-Gault) 52.5 BUN/Creatinine Ratio 32 (6-20) Glucose Level 441 mg/dL (70-99) Calcium Level 6.8 mg/dL (8.5-10.1) Total Bilirubin 0.2 mg/dL (0.2-1.0) Aspartate Amino Transf (AST/SGOT) 22 U/L (15-37) Alanine Aminotransferase (ALT/SGPT) 19 U/L (16-63) Alkaline Phosphatase 236 U/L (46-116) Total Protein 5.1 g/dL (6.4-8.2) Albumin 2.0 g/dL (3.4-5.0) Albumin/Globulin Ratio 0.6 (1.0-1.7) Thyroid Stimulating Hormone (TSH) 1.167 uIU/mL (0.358-3.74) Test 02/11/20 07:00 02/11/20 11:42 02/11/20 17:45 02/11/20 21:44 O2 Saturation 77 % (92-99) Arterial Blood pH 7.26 (7.35-7.45) Arterial Blood pCO2 at Patient Temp 39 mmHg (35-46) Arterial Blood pO2 at Patient Temp 47 mmHg (75-108) Arterial Blood HCO3 17 mmol/L (21-28) Arterial Blood Base Excess -10 mmol/L (-3-3) FiO2 100 Glucose (Fingerstick) 326 mg/dL (70-99) 274 mg/dL (70-99) 241 mg/dL (70-99) Test 02/11/20 21:50 02/12/20 00:30 02/12/20 05:45 Heparin Anti-Xa Act, Unfractionated > 1.10 IU/mL (0.30-0.70) > 1.10 IU/mL (0.30-0.70) Glucose (Fingerstick) 236 mg/dL (70-99) 261 mg/dL (70-99) Sodium Level 140 mmol/L (136-145) Potassium Level 4.3 mmol/L (3.5-5.1) Chloride Level 105 mmol/L (98-107) Carbon Dioxide Level 22 mmol/L (21-32) Anion Gap 13 (6-14) Blood Urea Nitrogen 69 mg/dL (8-26) Creatinine 1.9 mg/dL (0.7-1.3) Estimated GFR (Cockcroft-Gault) 46.2 Glucose Level 272 mg/dL (70-99) Calcium Level 7.3 mg/dL (8.5-10.1) Magnesium Level 2.3 mg/dL (1.8-2.4) Laboratory Tests Test 02/11/20 11:42 02/11/20 17:45 02/11/20 21:44 02/11/20 21:50 Glucose (Fingerstick) 326 mg/dL (70-99) 274 mg/dL (70-99) 241 mg/dL (70-99) Heparin Anti-Xa Act, Unfractionated > 1.10 IU/mL (0.30-0.70) Test 02/12/20 00:30 02/12/20 05:45 Glucose (Fingerstick) 236 mg/dL (70-99) 261 mg/dL (70-99) Heparin Anti-Xa Act, Unfractionated > 1.10 IU/mL (0.30-0.70) Sodium Level 140 mmol/L (136-145) Potassium Level 4.3 mmol/L (3.5-5.1) Chloride Level 105 mmol/L (98-107) Carbon Dioxide Level 22 mmol/L (21-32) Anion Gap 13 (6-14) Blood Urea Nitrogen 69 mg/dL (8-26) Creatinine 1.9 mg/dL (0.7-1.3) Estimated GFR (Cockcroft-Gault) 46.2 Glucose Level 272 mg/dL (70-99) Calcium Level 7.3 mg/dL (8.5-10.1) Magnesium Level 2.3 mg/dL (1.8-2.4) Medications Active Scripts Medications Dose Route/Sig Max Daily Dose Days Date Category Aspirin 325 Mg Tablet 325 Mg PO DAILY 03/20/19 Rx Venlafaxine Hcl Er (Venlafaxine Hcl) 150 Mg Tab.er.24 1 Tab PO BID 03/18/19 Reported Novolog (Insulin Aspart) 100 Unit/1 Ml Cartridge 25 Unit SQ TIDWMEALS 03/18/19 Reported Metformin Hcl 1,000 Mg Tablet 1,000 Mg PO BIDWMEALS 03/18/19 Reported Zofran (Ondansetron Hcl) 4 Mg Tablet 1 Tab PO Q6HRS 03/18/19 Reported Terazosin Hcl 2 Mg Capsule 2 Cap PO QHS 03/18/19 Reported Lantus Solostar (Insulin Glargine,Hum.rec.anlog) 100 Unit/1 Ml Insuln.pen 80 Unit SQ QHS 03/18/19 Reported Metoprolol Tartrate 50 Mg Tablet 1 Tab PO BID 03/18/19 Reported Omeprazole 20 Mg Capsule.dr 20 Mg PO BID 03/18/19 Reported Lisinopril 40 Mg Tablet 1 Tab PO DAILY 03/18/19 Reported Mrhtak-Mqeabbmz-Jmrf 50-325-40 (Butalb/Acetaminophen/Caffeine) 1 Each Tablet 1-2 Tab PO PRN Q4HRS PRN MDD 6 tablets 2 07/30/18 Rx Imitrex (Sumatriptan Succinate) 50 Mg Tablet 50 Mg PO PRN BID PRN 01/15/15 Reported Hydrochlorothiazide Tablet (Hydrochlorothiazide) 12.5 Mg Tablet 25 Mg PO DAILY 01/15/15 Reported Meclizine Hcl 25 Mg Tablet 25 Mg PO PRN TID PRN 90 01/15/15 Reported Patanol (Olopatadine Hcl) 5 Ml Drops 1 Drop EACHEYE BID 01/11/15 Reported Atorvastatin Calcium 20 Mg Tablet 1 Tab PO DAILY 01/11/15 Reported Isosorbide Mononitrate 20 Mg Tablet 20 Mg PO BID 08/22/13 Reported Amlodipine Besylate 10 Mg Tablet 10 Mg PO HS 08/22/13 Reported Isosorbide Dinitrate 30 Mg Tablet 20 Mg PO DAILY 07/15/19 Reported Hydrochlorothiazide Tablet (Hydrochlorothiazide) 25 Mg Tablet 25 Mg PO DAILY 07/15/19 Reported Ondansetron Odt (Ondansetron) 4 Mg Tab.rapdis 1 Tab PO PRN Q6-8HRS PRN 01/31/19 Rx Dkwmps-Fcqpinbo-Noot 50-325-40 (Butalb/Acetaminophen/Caffeine) 1 Each Tablet 1 Each PO Q6HRS PRN 01/31/19 Rx Comments mpression: 1. Increased diffuse interstitial and alveolar opacities. Impression . 1. Acute hypoxic respiratory failure secondary to COVID-19 pneumonia and ARDS 2. COVID-19 sepsis. 3. Abnormal chest x-ray 4. 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 5. Diabetic ketoacidosis, now anion gap closed and being monitored by PCP.BS better 6. Hypernatremia, s/p IV fluids. resolved 7. Hypertension/ cardene 8. Possible acute pulmonary emboli Plan . Reviewed MAR, continue current support. Discussed with RN Patient not doing any better today, will initiate full dose heparin for presumptive PE Continue assist control ventilation 18 of PEEP Broad-spectrum antibiotics PRN Lasix Status post convalescent plasma status post Tocilizumab Sedate, Total cumulative critical care time of 30 minutes, reviewing data, chest x-ray, and labs. KIMBERLY LOPEZ MD Feb 12, 2020 09:31
[2020-02-12 09:35] LABS: FIO2 ABG 100
--- NOTE | 2020-02-12 12:03 | PDOC ---
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 Diabetes mellitus type 2 insulin requiring Severe anion gap metabolic acidosis resolved Plan: isolation cont ICU VENT SUPPORT AC mode 100%FIO2/ 10 PEEP fluid resuscitation D/C IV NS 02/09 DKA protocol Broad spectrum antibiotics for pneumonic process POS COVID 19 infection supportive measures vent management, will consult pulmonology for assistance. further recommendations based on clinical course DVT prophylaxis: heparin cardiology consult cxr 02/06 worse I>>>O will give low dose lasix s/p convalescent plasma. s/p Tocilizumab 02/03 titrate off cardene and monitor BP trend. CHK IONIZED CA++ VTE Prophylaxis Ordered VTE Prophylaxis Devices: No VTE Pharmacological Prophylaxi: Yes History of Present Illness History of Present Illness 02/10 Suspect gram negative organism pneumonia worsening hypoxia AC mode 100%FIO2/ 9 PEEP poor prognosis, son considering DNR status, family discussing 02/11 No acute events reported overnight, case discussed with nursing staff patient in no acute distress, continues to be critically ill and vent requirements are quite significant. Prognosis is quite guarded, all concerns addressed to the best of my abilities during my visit Justicifation of Admission Dx: Justicifation of Admission Dx: Justifications for Admission: Justification of Admission Dx: Yes Sepsis: Altered Mental Status Vitals Vitals Vital Signs Date Time Temp Pulse Resp B/P (MAP) Pulse Ox O2 Delivery O2 Flow Rate FiO2 02/12/20 11:42 98 Ventilator 02/12/20 11:00 94 26 142/62 (88) 02/12/20 08:00 98.4 98.4 02/11/20 20:29 15.0 Physical Exam Physical Exam SEDATED ON VENT visual exam done due to COVID pandemia EXTREMITIES: Without any cyanosis. NEUROLOGIC: Sedated PSYCHIATRIC: uanble to obtain due to acute process . SKIN: No ulcerations General: Other (sedated ) Extremities: No edema Skin: No significant lesion Labs LABS Laboratory Tests Test 02/11/20 17:45 02/11/20 21:44 02/11/20 21:50 02/12/20 00:30 Glucose (Fingerstick) 274 mg/dL (70-99) 241 mg/dL (70-99) 236 mg/dL (70-99) Heparin Anti-Xa Act, Unfractionated > 1.10 IU/mL (0.30-0.70) Test 02/12/20 05:45 02/12/20 08:30 02/12/20 11:34 Heparin Anti-Xa Act, Unfractionated > 1.10 IU/mL (0.30-0.70) Sodium Level 140 mmol/L (136-145) Potassium Level 4.3 mmol/L (3.5-5.1) Chloride Level 105 mmol/L (98-107) Carbon Dioxide Level 22 mmol/L (21-32) Anion Gap 13 (6-14) Blood Urea Nitrogen 69 mg/dL (8-26) Creatinine 1.9 mg/dL (0.7-1.3) Estimated GFR (Cockcroft-Gault) 46.2 Glucose Level 272 mg/dL (70-99) Glucose (Fingerstick) 261 mg/dL (70-99) 226 mg/dL (70-99) Calcium Level 7.3 mg/dL (8.5-10.1) Magnesium Level 2.3 mg/dL (1.8-2.4) O2 Saturation 90 % (92-99) Arterial Blood pH 7.31 (7.35-7.45) Arterial Blood pCO2 at Patient Temp 44 mmHg (35-46) Arterial Blood pO2 at Patient Temp 62 mmHg (75-108) Arterial Blood HCO3 22 mmol/L (21-28) Arterial Blood Base Excess -5 mmol/L (-3-3) FiO2 100 Assessment and Plan Assessmemt and Plan Problems Medical Problems: (1) Acute metabolic encephalopathy Status: Acute (2) Acute renal insufficiency Status: Acute (3) DKA (diabetic ketoacidoses) Status: Acute (4) Pneumonia Status: Acute (5) Respiratory failure with hypoxia Status: Acute (6) Suspected 2019 novel coronavirus infection Status: Acute Comment Review of Relevant I have reviewed the following items myra (where applicable) has been applied. Labs Laboratory Tests Test 02/10/20 12:25 02/10/20 13:00 02/10/20 16:40 02/10/20 17:35 Glucose (Fingerstick) 298 mg/dL (70-99) 283 mg/dL (70-99) Urine Collection Type Unknown Urine Color Red Urine Clarity Turbid Urine pH 5.0 (<5.0-8.0) Urine Specific [place] 1.015 (1.000-1.030) Urine Protein mg/dL (NEG-TRACE) Urine Glucose (UA) mg/dL (NEG) Urine Ketones (Stick) mg/dL (NEG) Urine Blood (NEG) Urine Nitrite (NEG) Urine Bilirubin (NEG) Urine Urobilinogen Dipstick mg/dL (0.2 mg/dL) Urine Leukocyte Esterase (NEG) Urine RBC Tntc /HPF (0-2) Urine WBC 5-10 /HPF (0-4) Urine Bacteria Moderate /HPF (0-FEW) Urine Osmolality 347 mOsmol/kg (.) Ionized Calcium 1.06 mmol/L (1.13-1.32) Test 02/10/20 20:59 02/11/20 00:09 02/11/20 06:17 02/11/20 06:30 Glucose (Fingerstick) 336 mg/dL (70-99) 390 mg/dL (70-99) 399 mg/dL (70-99) White Blood Count 26.1 x10^3/uL (4.0-11.0) Red Blood Count 4.24 x10^6/uL (4.30-5.70) Hemoglobin 12.4 g/dL (13.0-17.5) Hematocrit 37.2 % (39.0-53.0) Mean Corpuscular Volume 88 fL (79-100) Mean Corpuscular Hemoglobin 29 pg (25-35) Mean Corpuscular Hemoglobin Concent 33 g/dL (31-37) Red Cell Distribution Width 14.8 % (11.5-14.5) Platelet Count 265 x10^3/uL (140-400) Neutrophils (%) (Auto) 86 % (31-73) Lymphocytes (%) (Auto) 3 % (24-48) Monocytes (%) (Auto) 10 % (0-9) Eosinophils (%) (Auto) 0 % (0-3) Basophils (%) (Auto) 1 % (0-3) Neutrophils # (Auto) 22.5 x10^3/uL (1.8-7.7) Lymphocytes # (Auto) 0.8 x10^3/uL (1.0-4.8) Monocytes # (Auto) 2.6 x10^3/uL (0.0-1.1) Eosinophils # (Auto) 0.0 x10^3/uL (0.0-0.7) Basophils # (Auto) 0.3 x10^3/uL (0.0-0.2) Segmented Neutrophils % 83 % (35-66) Band Neutrophils % 5 % (0-9) Lymphocytes % 5 % (24-48) Monocytes % 5 % (0-10) Metamyelocytes % 2 % (0-0) Nucleated Red Blood Cells 1 Platelet Estimate Adequate (ADEQUATE) Sodium Level 138 mmol/L (136-145) Potassium Level 4.1 mmol/L (3.5-5.1) Chloride Level 103 mmol/L (98-107) Carbon Dioxide Level 24 mmol/L (21-32) Anion Gap 11 (6-14) Blood Urea Nitrogen 55 mg/dL (8-26) Creatinine 1.7 mg/dL (0.7-1.3) Estimated GFR (Cockcroft-Gault) 52.5 BUN/Creatinine Ratio 32 (6-20) Glucose Level 441 mg/dL (70-99) Calcium Level 6.8 mg/dL (8.5-10.1) Total Bilirubin 0.2 mg/dL (0.2-1.0) Aspartate Amino Transf (AST/SGOT) 22 U/L (15-37) Alanine Aminotransferase (ALT/SGPT) 19 U/L (16-63) Alkaline Phosphatase 236 U/L (46-116) Total Protein 5.1 g/dL (6.4-8.2) Albumin 2.0 g/dL (3.4-5.0) Albumin/Globulin Ratio 0.6 (1.0-1.7) Thyroid Stimulating Hormone (TSH) 1.167 uIU/mL (0.358-3.74) Test 02/11/20 07:00 02/11/20 11:42 02/11/20 17:45 02/11/20 21:44 O2 Saturation 77 % (92-99) Arterial Blood pH 7.26 (7.35-7.45) Arterial Blood pCO2 at Patient Temp 39 mmHg (35-46) Arterial Blood pO2 at Patient Temp 47 mmHg (75-108) Arterial Blood HCO3 17 mmol/L (21-28) Arterial Blood Base Excess -10 mmol/L (-3-3) FiO2 100 Glucose (Fingerstick) 326 mg/dL (70-99) 274 mg/dL (70-99) 241 mg/dL (70-99) Test 02/11/20 21:50 02/12/20 00:30 02/12/20 05:45 02/12/20 08:30 Heparin Anti-Xa Act, Unfractionated > 1.10 IU/mL (0.30-0.70) > 1.10 IU/mL (0.30-0.70) Glucose (Fingerstick) 236 mg/dL (70-99) 261 mg/dL (70-99) Sodium Level 140 mmol/L (136-145) Potassium Level 4.3 mmol/L (3.5-5.1) Chloride Level 105 mmol/L (98-107) Carbon Dioxide Level 22 mmol/L (21-32) Anion Gap 13 (6-14) Blood Urea Nitrogen 69 mg/dL (8-26) Creatinine 1.9 mg/dL (0.7-1.3) Estimated GFR (Cockcroft-Gault) 46.2 Glucose Level 272 mg/dL (70-99) Calcium Level 7.3 mg/dL (8.5-10.1) Magnesium Level 2.3 mg/dL (1.8-2.4) O2 Saturation 90 % (92-99) Arterial Blood pH 7.31 (7.35-7.45) Arterial Blood pCO2 at Patient Temp 44 mmHg (35-46) Arterial Blood pO2 at Patient Temp 62 mmHg (75-108) Arterial Blood HCO3 22 mmol/L (21-28) Arterial Blood Base Excess -5 mmol/L (-3-3) FiO2 100 Test 02/12/20 11:34 Glucose (Fingerstick) 226 mg/dL (70-99) Laboratory Tests Test 02/11/20 17:45 02/11/20 21:44 02/11/20 21:50 02/12/20 00:30 Glucose (Fingerstick) 274 mg/dL (70-99) 241 mg/dL (70-99) 236 mg/dL (70-99) Heparin Anti-Xa Act, Unfractionated > 1.10 IU/mL (0.30-0.70) Test 02/12/20 05:45 02/12/20 08:30 02/12/20 11:34 Heparin Anti-Xa Act, Unfractionated > 1.10 IU/mL (0.30-0.70) Sodium Level 140 mmol/L (136-145) Potassium Level 4.3 mmol/L (3.5-5.1) Chloride Level 105 mmol/L (98-107) Carbon Dioxide Level 22 mmol/L (21-32) Anion Gap 13 (6-14) Blood Urea Nitrogen 69 mg/dL (8-26) Creatinine 1.9 mg/dL (0.7-1.3) Estimated GFR (Cockcroft-Gault) 46.2 Glucose Level 272 mg/dL (70-99) Glucose (Fingerstick) 261 mg/dL (70-99) 226 mg/dL (70-99) Calcium Level 7.3 mg/dL (8.5-10.1) Magnesium Level 2.3 mg/dL (1.8-2.4) O2 Saturation 90 % (92-99) Arterial Blood pH 7.31 (7.35-7.45) Arterial Blood pCO2 at Patient Temp 44 mmHg (35-46) Arterial Blood pO2 at Patient Temp 62 mmHg (75-108) Arterial Blood HCO3 22 mmol/L (21-28) Arterial Blood Base Excess -5 mmol/L (-3-3) FiO2 100 Microbiology 02/10/20 Urine Culture - Final, Complete 02/02/20 Blood Culture - Final, Complete NO GROWTH AFTER 5 DAYS Medications Current Medications Sodium Chloride 1,000 ml @ 1,000 mls/hr 1X ONCE IV Last administered on 02/02/20at 16:48; Start 02/02/20 at 15:45; Stop 02/02/20 at 16:44; Status DC Etomidate (Amidate) 20 mg 1X ONCE IV Last administered on 02/02/20at 15:54; Start 02/02/20 at 15:45; Stop 02/02/20 at 15:52; Status DC Rocuronium [place] (Zemuron) 50 mg 1X ONCE IV Last administered on 02/02/20at 15:55; Start 02/02/20 at 15:45; Stop 02/02/20 at 15:52; Status DC Propofol 100 ml @ 0 mls/hr CONT PRN IV SEE PROTOCOL Last administered on 02/02/20at 16:33; Start 02/02/20 at 15:45; Stop 02/02/20 at 17:44; Status DC Chlorhexidine Gluconate (Peridex) 15 ml BID MM ; Start 02/02/20 at 21:00; Stop 02/02/20 at 17:39; Status DC Fentanyl Citrate (Fentanyl 2ml Vial) 100 mcg 1X ONCE IV Last administered on 02/02/20at 16:34; Start 02/02/20 at 16:15; Stop 02/02/20 at 16:16; Status DC Sodium Chloride 1,000 ml @ 1,000 mls/hr 1X ONCE IV Last administered on 02/02/20at 16:15; Start 02/02/20 at 16:15; Stop 02/02/20 at 17:20; Status DC Aspirin (Aspirin Rectal Supp) 300 mg 1X ONCE AL Last administered on 02/02/20at 16:35; Start 02/02/20 at 16:15; Stop 02/02/20 at 16:17; Status DC Acetaminophen (Tylenol) 650 mg PRN Q6HRS PRN PO Headaches, Temp > 101.5'; Start 02/02/20 at 16:15 Prochlorperazine Edisylate (Compazine) 5 mg PRN Q6HRS PRN IVP NAUSEA/VOMITING; Start 02/02/20 at 16:15 Prochlorperazine (Compazine) 25 mg PRN Q12HR PRN AL NAUSEA/VOMITING; Start 02/02/20 at 16:15 Info (Icu Electrolyte Protocol) 1 ea DAILY MC Last administered on 02/09/20at 09:00; Start 02/03/20 at 09:00 Heparin Sodium (Porcine) (Heparin Sodium) 5,000 unit Q8HRS SQ Last administered on 02/04/20at 05:32; Start 02/02/20 at 22:00; Stop 02/04/20 at 14:45; Status DC Sodium Chloride (Normal Saline Flush) 3 ml QSHIFT PRN IV AFTER MEDS AND BLOOD DRAWS; Start 02/02/20 at 16:15 Oxycodone/ Acetaminophen (Percocet 5/325) 1 tab PRN Q4HRS PRN PO MILD PAIN, 1ST CHOICE; Start 02/02/20 at 16:15 Morphine Sulfate (Morphine Sulfate) 2 mg PRN Q1HR PRN IV PAIN; Start 02/02/20 at 16:15; Stop 02/11/20 at 11:37; Status DC Senna/Docusate Sodium (Senna Plus) 1 tab BID PO Last administered on 02/12/20at 08:28; Start 02/02/20 at 21:00 Docusate Sodium (Colace) 100 mg BID PO ; Start 02/02/20 at 21:00; Stop 02/04/20 at 19:30; Status DC Lactulose (Lactulose) 20 gm PRN Q12HR PRN PO CONSTIPATION; Start 02/02/20 at 16:15 Amlodipine Besylate (Norvasc) 10 mg HS PO Last administered on 02/11/20at 21:28; Start 02/02/20 at 21:00; Stop 02/12/20 at 09:16; Status DC Aspirin (Grover Aspirin) 325 mg DAILY PO Last administered on 02/12/20at 08:29; Start 02/03/20 at 09:00 Atorvastatin Calcium (Lipitor) 20 mg QHS PO Last administered on 02/11/20at 21:27; Start 02/02/20 at 21:00 Acetaminophen/ Butalbital/ Caffeine (Fioricet) 1 tab PRN Q6HRS PRN PO MIGRAINE HEADACHE- 1ST CHOICE; Start 02/02/20 at 16:15 Hydrochlorothiazide (Hydrodiuril) 25 mg DAILY PO Last administered on 02/11/20at 07:53; Start 02/03/20 at 09:00; Stop 02/11/20 at 09:55; Status DC Isosorbide Dinitrate (Isordil) 10 mg TID PO Last administered on 02/10/20at 13:53; Start 02/02/20 at 21:00; Stop 02/10/20 at 15:23; Status DC Lisinopril (Prinivil) 40 mg DAILY PO Last administered on 02/11/20at 07:54; Start 02/03/20 at 09:00; Stop 02/12/20 at 09:16; Status DC Metoprolol Tartrate (Lopressor) 50 mg BID PO Last administered on 02/07/20at 21:21; Start 02/02/20 at 21:00; Stop 02/08/20 at 17:13; Status DC Non-Formulary Medication (Hydrochlorothiazide (Hydrochlorothiazide Tablet)) 25 mg DAILY PO ; Start 02/03/20 at 09:00; Status UNV Non-Formulary Medication (Insulin Aspart (Novolog)) 25 unit TIDWMEALS SQ ; Start 02/02/20 at 17:00; Status UNV Non-Formulary Medication (Insulin Glargine,Hum.rec.anlog (Lantus Solostar)) 80 unit QHS SQ ; Start 02/02/20 at 21:00; Status UNV Non-Formulary Medication (Isosorbide Dinitrate ) 20 mg DAILY PO ; Start 02/03/20 at 09:00; Status UNV Meclizine HCl (Antivert) 25 mg PRN Q6HRS PRN PO NAUSEA- 2ND CHOICE; Start 02/02/20 at 17:45 Metformin HCl (Glucophage) 1,000 mg BIDWMEALS PO Last administered on 02/11/20at 17:38; Start 02/02/20 at 17:00 Ketotifen Fumarate (Zaditor) 1 drop BID OU Last administered on 02/12/20at 08:29 ; Start 02/02/20 at 21:00 Pantoprazole Sodium (PROTONIX VIAL for IV PUSH) 40 mg DAILYAC IVP Last administered on 02/12/20at 08:28; Start 02/03/20 at 07:30 Ondansetron HCl (Zofran Odt) 4 mg PRN Q8HRS PRN PO NAUSEA/VOMITING, 1ST CHOICE PO; Start 02/02/20 at 17:45 Sumatriptan Succinate (Imitrex) 50 mg PRN BID PRN PO MIGRAINE HEADACHE; Start 02/02/20 at 17:45 Non-Formulary Medication (Terazosin Hcl ) 2 cap QHS PO ; Start 02/02/20 at 21:00; Status UNV Venlafaxine HCl (Effexor) 150 mg BID PO Last administered on 02/12/20at 08:28; Start 02/02/20 at 21:00 Fentanyl Citrate 30 ml @ 0 mls/hr CONT PRN IV SEE PROTOCOL Last administered on 02/06/20at 05:48; Start 02/02/20 at 16:30; Stop 02/06/20 at 10:59; Status DC Propofol 100 ml @ 0 mls/hr CONT PRN IV SEE PROTOCOL Last administered on 02/09/20at 17:03; Start 02/02/20 at 16:30 Fentanyl Citrate (Fentanyl 2ml Vial) 25 mcg PRN Q1HR PRN IV SEE COMMENTS; Start 02/02/20 at 16:30 Fentanyl Citrate (Fentanyl 2ml Vial) 50 mcg PRN Q1HR PRN IV SEE COMMENTS; Start 02/02/20 at 16:30 Chlorhexidine Gluconate (Peridex) 15 ml BID MM Last administered on 02/07/20at 21:20; Start 02/02/20 at 21:00; Stop 02/08/20 at 18:56; Status DC Morphine Sulfate (Morphine Sulfate) 2 mg PRN Q1HR PRN IV SEE COMMENTS.; Start 02/02/20 at 16:30 Morphine Sulfate (Morphine Sulfate) 4 mg PRN Q1HR PRN IV SEE COMMENTS.; Start 02/02/20 at 16:30 Midazolam HCl (Versed) 1 mg PRN Q30MIN PRN IV SEE COMMENTS.; Start 02/02/20 at 16:30 Piperacillin Sod/ Tazobactam Sod 4.5 gm/Sodium Chloride 100 ml @ 200 mls/hr 1X ONCE IV Last administered on 02/02/20at 17:03; Start 02/02/20 at 16:30; Stop 02/02/20 at 16:59; Status DC Azithromycin 250 ml @ 250 mls/hr 1X ONCE IV Last administered on 02/02/20at 17:40; Start 02/02/20 at 16:30; Stop 02/02/20 at 17:34; Status DC Dexamethasone Sodium Phosphate (Decadron) 10 mg 1X ONCE IVP Last administered on 02/02/20at 16:54; Start 02/02/20 at 16:30; Stop 02/02/20 at 16:33; Status DC Midazolam HCl (Versed) 5 mg 1X ONCE IV Last administered on 02/02/20at 16:35; Start 02/02/20 at 16:45; Stop 02/02/20 at 16:46; Status DC Insulin Human Regular (HumuLIN R VIAL) 8 unit 1X ONCE SQ Last administered on 02/02/20at 16:51; Start 02/02/20 at 16:45; Stop 02/02/20 at 16:46; Status DC Sodium Chloride 1,000 ml @ 500 mls/hr Q2H IV Last administered on 02/02/20at 18:33; Start 02/02/20 at 16:36; Stop 02/02/20 at 18:35; Status DC Insulin Human Regular 100 unit/ Sodium Chloride 101 ml @ 0 mls/hr CONT PRN PRN IV PER PROTOCOL Last administered on 02/03/20at 02:08; Start 02/02/20 at 16:45; Stop 02/03/20 at 02:31; Status DC Insulin Human Regular 100 ml @ As Directed STK-MED ONCE IV ; Start 02/02/20 at 16:41; Stop 02/02/20 at 16:41; Status DC Etomidate (Amidate) 20 mg 1X ONCE IV ; Start 02/02/20 at 17:15; Stop 02/02/20 at 17:22; Status DC Rocuronium [place] (Zemuron) 50 mg 1X ONCE IV ; Start 02/02/20 at 17:15; Stop 02/02/20 at 17:34; Status DC Piperacillin Sod/ Tazobactam Sod 3.375 gm/Sodium Chloride 50 ml @ 100 mls/hr Q6HRS IV Last administered on 02/12/20at 05:50; Start 02/03/20 at 00:00 Sodium Chloride 1,000 ml @ 250 mls/hr Q4H IV Last administered on 02/02/20at 18:43; Start 02/02/20 at 18:45; Stop 02/02/20 at 22:40; Status DC Pantoprazole Sodium (PROTONIX VIAL for IV PUSH) 40 mg 1X ONCE IVP Last administered on 02/02/20at 22:47; Start 02/02/20 at 20:15; Stop 02/02/20 at 20:40; Status DC Labetalol HCl (Normodyne Iv Push) 10 mg PRN Q4HRS PRN IVP HYPERTENSION, 2ND CHOICE Last administered on 02/04/20at 05:20; Start 02/02/20 at 20:15; Stop 02/10/20 at 15:23; Status DC Dextrose/Sodium Chloride 1,000 ml @ 250 mls/hr Q4H IV Last administered on 02/03/20at 07:59; Start 02/02/20 at 22:45; Stop 02/03/20 at 11:23; Status DC Insulin Human Regular 100 unit/ Sodium Chloride 101 ml @ 0 mls/hr CONT PRN IV SEE I/O RECORD; Start 02/03/20 at 02:15 Potassium Chloride/Water 100 ml @ 100 mls/hr PRN Q1HR PRN IV SEE COMMENTS; Start 02/03/20 at 05:00 Potassium Chloride/Water 100 ml @ 100 mls/hr Q1H IV Last administered on 02/03/20at 07:58; Start 02/03/20 at 05:00; Stop 02/03/20 at 08:59; Status DC Insulin Glargine (Lantus Syringe) 18 unit BID SQ Last administered on 02/10/20at 08:57; Start 02/03/20 at 09:00; Stop 02/10/20 at 11:00; Status DC Insulin Human Lispro (HumaLOG) 0-9 UNITS Q6HRS SQ Last administered on 02/12/20at 05:53; Start 02/03/20 at 12:00 Dextrose (Dextrose 50%-Water Syringe) 12.5 gm PRN Q15MIN PRN IV SEE COMMENTS; Start 02/03/20 at 06:15 Sodium Chloride 1,000 ml @ 125 mls/hr 1X ONCE IV Last administered on 02/03/20at 12:01; Start 02/03/20 at 11:30; Stop 02/03/20 at 19:29; Status DC Vecuronium [place] (Norcuron Bolus) 10 mg PRN Q6HRS PRN IV SEDATION Last administered on 02/04/20at 12:09; Start 02/04/20 at 07:30; Stop 02/04/20 at 19:30; Status DC Potassium Chloride/Water 100 ml @ 100 mls/hr 1X ONCE IV Last administered on 02/04/20at 10:04; Start 02/04/20 at 10:00; Stop 02/04/20 at 10:59; Status DC Tocilizumab 400 mg/Sodium Chloride 100 ml @ 100 mls/hr 1X ONCE IV Last administered on 02/04/20at 14:53; Start 02/04/20 at 13:00; Stop 02/04/20 at 13:59; Status DC Enoxaparin Sodium (Lovenox 40mg Syringe) 40 mg BID SQ Last administered on 02/11/20at 07:56; Start 02/04/20 at 21:00; Stop 02/11/20 at 16:16; Status DC Sodium Chloride 1,000 ml @ 125 mls/hr Q8H IV Last administered on 02/10/20at 02:10; Start 02/04/20 at 16:00; Stop 02/10/20 at 08:45; Status DC Vecuronium [place] (Norcuron Bolus) 10 mg PRN Q1HR PRN IV SEDATION Last administered on 02/09/20at 12:12; Start 02/04/20 at 19:30 Docusate Sodium (Colace Solution) 100 mg DAILY PO Last administered on 02/12/20at 08:28; Start 02/05/20 at 09:00 Norepinephrine Bitartrate 8 mg/ Dextrose 258 ml @ 15.519 mls/ hr CONT PRN IV PER PROTOCOL Last administered on 02/07/20at 02:51; Start 02/04/20 at 22:30 Potassium Bicarbonate (Potassium Effervescent Tablet) 40 meq 1X ONCE PO Last administered on 02/05/20at 08:26; Start 02/05/20 at 07:45; Stop 02/05/20 at 07:46; Status DC Midazolam HCl 100 mg/Sodium Chloride 100 ml @ 1 mls/hr CONT PRN IV . Last administered on 02/12/20at 05:49; Start 02/05/20 at 10:00 Methylprednisolone Sodium Succinate (SOLU-Medrol 40MG VIAL) 40 mg Q8HRS IV Last administered on 02/12/20at 05:52; Start 02/05/20 at 14:00 Hydralazine HCl (Apresoline Inj) 10 mg PRN Q4HRS PRN IVP ELEVATED BP, SEE COMMENTS Last administered on 02/09/20at 02:15; Start 02/05/20 at 17:00; Stop 02/09/20 at 09:08; Status DC Fentanyl Citrate 55 ml @ 1.98 mls/hr CONT PRN IV SEE PROTOCOL Last administered on 02/11/20at 19:54; Start 02/06/20 at 11:00 Furosemide (Lasix) 20 mg 1X ONCE IVP Last administered on 02/06/20at 14:08; Start 02/06/20 at 14:00; Stop 02/06/20 at 14:01; Status DC Phenylephrine HCl 50 mg/Sodium Chloride 255 ml @ 13.372 mls/ hr CONT PRN IV SEE I/O RECORD Last administered on 02/07/20at 05:51; Start 02/07/20 at 05:45 Furosemide (Lasix) 20 mg 1X ONCE IVP Last administered on 02/07/20at 13:12; Start 02/07/20 at 13:15; Stop 02/07/20 at 13:16; Status DC Nicardipine HCl 50 mg/Sodium Chloride 250 ml @ 25 mls/hr CONT PRN IV SEE I/O RECORD Last administered on 02/12/20at 06:05; Start 02/08/20 at 10:15 Potassium Chloride/Water 100 ml @ 100 mls/hr Q1H IV Last administered on 02/08/20at 18:17; Start 02/08/20 at 16:00; Stop 02/08/20 at 17:59; Status DC Metoprolol Tartrate (Lopressor Vial) 5 mg Q6HRS IVP Last administered on 02/10/20at 11:56; Start 02/08/20 at 18:00; Stop 02/10/20 at 15:23; Status DC Hydralazine HCl (Apresoline Inj) 10 mg PRN Q4HRS PRN IVP ELEVATED BP, SEE COMMENTS Last administered on 02/10/20at 16:31; Start 02/08/20 at 17:15 Lorazepam 40 mg/ Sodium Chloride 270 ml @ 0 mls/hr CONT PRN IV SEE PROTOCOL Last administered on 02/12/20at 07:52; Start 02/09/20 at 09:00 Sodium Bicarbonate (Sodium Bicarb Adult 8.4% Syr) 100 meq 1X ONCE IV Last administered on 02/09/20at 09:18; Start 02/09/20 at 09:00; Stop 02/09/20 at 09:03; Status DC Potassium Chloride/Water 100 ml @ 100 mls/hr 1X ONCE IV Last administered on 02/09/20at 11:35; Start 02/09/20 at 11:00; Stop 02/09/20 at 11:59; Status DC Vecuronium [place] 50 mg/ Miscellaneous 50 ml @ 4.464 mls/ hr CONT PRN IV SEE I/O RECORD Last administered on 02/12/20at 07:51; Start 02/09/20 at 12:15 Albumin Human 250 ml @ 62.5 mls/hr 1X ONCE IV Last administered on 02/10/20at 08:56; Start 02/10/20 at 08:45; Stop 02/10/20 at 12:44; Status DC Sodium Bicarbonate (Sodium Bicarb Adult 8.4% Syr) 100 meq 1X ONCE IV Last administered on 02/10/20at 08:56; Start 02/10/20 at 08:45; Stop 02/10/20 at 08:46; Status DC Furosemide (Lasix) 40 mg 1X ONCE IVP Last administered on 02/10/20at 10:57; Start 02/10/20 at 10:45; Stop 02/10/20 at 10:46; Status DC Insulin Glargine (Lantus Syringe) 24 unit BID SQ Last administered on 02/11/20at 09:52; Start 02/10/20 at 21:00; Stop 02/11/20 at 13:31; Status DC Isosorbide Dinitrate (Isordil) 20 mg TID PO Last administered on 02/11/20at 07:55; Start 02/10/20 at 21:00; Stop 02/11/20 at 09:55; Status DC Labetalol HCl (Normodyne Iv Push) 20 mg PRN Q4HRS PRN IVP HYPERTENSION, 2ND CHOICE; Start 02/10/20 at 15:30; Stop 02/12/20 at 09:16; Status DC Metoprolol Tartrate (Lopressor Vial) 10 mg Q6HRS IVP Last administered on 02/12/20at 05:51; Start 02/10/20 at 18:00; Stop 02/12/20 at 09:16; Status DC Metoprolol Tartrate (Lopressor Vial) 5 mg 1X ONCE IVP Last administered on 02/10/20at 15:46; Start 02/10/20 at 15:30; Stop 02/10/20 at 15:31; Status DC Isosorbide Dinitrate (Isordil) 10 mg 1X ONCE PO Last administered on 02/10/20at 15:44; Start 02/10/20 at 15:30; Stop 02/10/20 at 15:31; Status DC Isosorbide Dinitrate (Isordil) 40 mg Q8HRS PO Last administered on 02/12/20at 06:00; Start 02/11/20 at 14:00 Hydralazine HCl (Apresoline) 50 mg Q8HRS PO Last administered on 02/12/20at 05:52; Start 02/11/20 at 14:00; Stop 02/12/20 at 09:16; Status DC Clonidine HCl (Catapres) 0.1 mg PRN Q1HR PRN PO HYPERTENSION Last administered on 02/11/20at 16:03; Start 02/11/20 at 10:00 Furosemide (Lasix) 40 mg DAILY IVP Last administered on 02/11/20at 11:30; Start 02/11/20 at 11:00 Insulin Glargine (Lantus Syringe) 28 unit BID SQ Last administered on 02/12/20at 08:30; Start 02/11/20 at 21:00 Heparin Sodium/ Dextrose 250 ml @ 16.4 mls/hr CONT PRN IV PER PROTOCOL Last administered on 02/11/20at 16:59; Start 02/11/20 at 16:30 Heparin Sodium (Porcine) (Heparin Sodium) 3,100 unit PRN Q6HRS PRN IV FOR UFH LEVEL LESS THAN 0.2; Start 02/11/20 at 16:30 Heparin Sodium (Porcine) (Heparin Sodium) 1,550 unit PRN Q6HRS PRN IV FOR UFH LEVEL 0.2 - 0.29; Start 02/11/20 at 16:30 Hydralazine HCl (Apresoline) 100 mg Q8HRS PO Last administered on 02/12/20at 10:11; Start 02/12/20 at 10:00 Labetalol HCl (Trandate) 400 mg BID PO ; Start 02/12/20 at 21:00 Furosemide (Lasix) 40 mg 1X ONCE IVP Last administered on 02/12/20at 10:10; Start 02/12/20 at 09:30; Stop 02/12/20 at 09:31; Status DC Active Scripts Active Aspirin 325 Mg Tablet 325 Mg PO DAILY [id number] 50-325-40 (Butalb/Acetaminophen/Caffeine) 1 Each Tablet 1-2 Tab PO PRN Q4HRS PRN MDD 6 tablets 2 Days Ondansetron Odt (Ondansetron) 4 Mg Tab.rapdis 1 Tab PO PRN Q6-8HRS PRN [id number]-Yzdx 50-325-40 (Butalb/Acetaminophen/Caffeine) 1 Each Tablet 1 Each PO Q6HRS PRN Reported Venlafaxine Hcl Er (Venlafaxine Hcl) 150 Mg Tab.er.24 1 Tab PO BID Novolog (Insulin Aspart) 100 Unit/1 Ml Cartridge 25 Unit SQ TIDWMEALS Metformin Hcl 1,000 Mg Tablet 1,000 Mg PO BIDWMEALS Zofran (Ondansetron Hcl) 4 Mg Tablet 1 Tab PO Q6HRS Terazosin Hcl 2 Mg Capsule 2 Cap PO QHS Lantus Solostar (Insulin Glargine,Hum.rec.anlog) 100 Unit/1 Ml Insuln.pen 80 Unit SQ QHS Metoprolol Tartrate 50 Mg Tablet 1 Tab PO BID Omeprazole 20 Mg Capsule.dr 20 Mg PO BID Lisinopril 40 Mg Tablet 1 Tab PO DAILY Imitrex (Sumatriptan Succinate) 50 Mg Tablet 50 Mg PO PRN BID PRN Hydrochlorothiazide Tablet (Hydrochlorothiazide) 12.5 Mg Tablet 25 Mg PO DAILY Meclizine Hcl 25 Mg Tablet 25 Mg PO PRN TID PRN 90 Days Patanol (Olopatadine Hcl) 5 Ml Drops 1 Drop EACHEYE BID Atorvastatin Calcium 20 Mg Tablet 1 Tab PO DAILY Isosorbide Mononitrate 20 Mg Tablet 20 Mg PO BID Amlodipine Besylate 10 Mg Tablet 10 Mg PO HS Isosorbide Dinitrate 30 Mg Tablet 20 Mg PO DAILY Hydrochlorothiazide Tablet (Hydrochlorothiazide) 25 Mg Tablet 25 Mg PO DAILY Vitals/I & O Vital Sign - Last 24 Hours 02/11/20 02/11/20 02/11/20 02/11/20 12:00 12:00 12:00 13:00 Temp 97.9 97.9 Pulse 86 92 Resp 26 26 B/P (MAP) 138/56 (83) 146/55 (85) Pulse Ox 94 94 O2 Delivery Mechanical Ventilator Ventilator Ventilator 6/25/20 6/25/20 6/25/20 6/25/20 13:08 13:43 13:43 14:00 Pulse 96 95 93 Resp 26 B/P (MAP) 144/57 146/54 138/52 (80) Pulse Ox 94 94 O2 Delivery Ventilator Ventilator 02/11/20 02/11/20 02/11/20 02/11/20 15:00 15:37 16:00 16:00 Pulse 98 Resp B/P (MAP) 156/56 (89) Pulse Ox 95 95 O2 Delivery Ventilator Ventilator Mechanical Ventilator 02/11/20 02/11/20 02/11/20 02/11/20 16:00 16:03 17:00 17:39 Temp 97.6 97.6 Pulse 100 99 99 100 Resp 26 B/P (MAP) 168/58 (94) 170/58 161/56 (91) 167/57 Pulse Ox 94 96 O2 Delivery Ventilator Ventilator 02/11/20 02/11/20 02/11/20 02/11/20 17:59 18:21 19:00 19:54 Pulse 89 101 Resp 28 B/P (MAP) 154/61 (92) 169/62 (97) Pulse Ox 94 95 96 96 O2 Delivery Ventilator Ventilator Ventilator O2 Flow Rate 15.0 02/11/20 02/11/20 02/11/20 02/11/20 20:00 20:00 20:00 20:29 Temp 98.4 98.4 Pulse 108 Resp 28 B/P (MAP) 176/63 (100) Pulse Ox 97 95 O2 Delivery Mechanical Ventilator Ventilator Ventilator 02/11/20 02/11/20 02/11/20 02/11/20 20:29 21:00 21:28 22:00 Pulse 99 108 91 Resp 28 B/P (MAP) 169/65 (99) 176/63 129/57 Pulse Ox 96 95 O2 Delivery Ventilator O2 Flow Rate 15.0 02/11/20 02/11/20 02/11/20 02/11/20 22:00 22:23 23:30 23:59 Pulse 91 91 Resp 28 B/P (MAP) 129/57 (81) 129/57 Pulse Ox 95 98 O2 Delivery Ventilator Ventilator Mechanical Ventilator 02/11/20 02/11/20 02/12/20 02/12/20 23:59 23:59 00:00 01:00 Temp 98.8 98.8 Pulse 89 91 89 Resp 24 24 B/P (MAP) 159/68 (98) 129/57 155/71 (99) Pulse Ox 95 95 O2 Delivery Ventilator Ventilator 02/12/20 02/12/20 02/12/20 02/12/20 02:00 03:25 04:00 04:00 Temp 98.2 98.2 Pulse 96 94 102 Resp B/P (MAP) 158/68 (98) 162/72 (102) 165/70 (101) Pulse Ox 98 99 98 O2 Delivery Ventilator Ventilator Ventilator 02/12/20 02/12/20 02/12/20 02/12/20 04:00 04:05 05:00 05:51 Pulse 98 98 Resp B/P (MAP) 155/67 (96) 155/67 Pulse Ox 98 99 O2 Delivery Mechanical Ventilator Ventilator Ventilator 02/12/20 02/12/20 02/12/20 02/12/20 05:52 06:00 06:00 07:00 Pulse 98 98 88 94 Resp 28 B/P (MAP) 155/67 155/67 153/65 (94) 156/68 (97) Pulse Ox 99 98 O2 Delivery Ventilator Ventilator 02/12/20 02/12/20 02/12/20 02/12/20 08:00 08:00 08:00 08:26 Temp 98.4 98.4 Pulse 100 Resp B/P (MAP) 166/72 (103) Pulse Ox 98 98 O2 Delivery Ventilator Mechanical Ventilator Ventilator 02/12/20 02/12/20 02/12/20 02/12/20 09:00 10:00 10:11 11:00 Pulse 100 102 103 94 Resp B/P (MAP) 160/70 (100) 160/70 (100) 163/70 142/62 (88) Pulse Ox 98 98 97 O2 Delivery Ventilator Ventilator Ventilator 02/12/20 11:42 Pulse Ox 98 O2 Delivery Ventilator Intake and Output 02/11/20 02/11/20 02/12/20 15:00 23:00 07:00 Intake Total 375 ml 1666.31 ml 1828 ml Output Total 475 ml 425 ml 575 ml Balance -100 ml 1241.31 ml 1253 ml JADEN PEÑALOZA MD Feb 12, 2020 12:03
[2020-02-12] MEDS: HEPARIN 25,000UTS/250ML PREMIX 250 ML IV PRN (13:52)
--- NOTE | 2020-02-12 14:33 | NUR ---
SS following up with discharge planning. SS reviewed pt chart and discussed with pt RN. No new changes today. Pt remains on the vent at this time. Pt on IV Zosyn and COVID19 positive. SS will continue to follow for discharge planning.
[2020-02-12] MEDS: LABETALOL HCL 200 MG TABLET PO SCH (20:34)
[2020-02-12] MEDS: ATORVASTATIN CALCIUM 20 MG TABLET PO SCH (20:34)
[2020-02-12] MEDS: fentaNYL HIGH DOSE PCA 55 ML IV PRN (22:26)
[2020-02-13] VITALS (24 sets, daily range): BP systolic 121–175; BP diastolic 50–67
[2020-02-13] MEDS: PIPERACILLIN/TAZOBACTAM 3.375 GM in IV NORMAL SALINE 50ML 50 ML IV SCH ×5 (00:28→23:31)
[2020-02-13] MEDS: INSULIN LISPRO 300 UNITS/3 ML VIAL. SQ SCH ×4 (00:36→18:00)
[2020-02-13] MEDS: LORazepam 40 MG in IV NORMAL SALINE 250ML 250 ML IV PRN ×3 (01:18→15:04)
[2020-02-13] MEDS: MIDAZOLAM HCL 100 MG in IV NORMAL SALINE 100ML 100 ML IV PRN ×2 (01:19→14:40)
[2020-02-13] MEDS: methylPREDNISolone SOD SUCC PF 40 MG/ML VIAL. IV SCH ×3 (05:32→21:02)
[2020-02-13] MEDS: ISOSORBIDE DINITRATE 10 MG TABLET. PO SCH ×3 (05:32→21:01)
[2020-02-13] MEDS: VECURONIUM BROMIDE 50 MG in TOTAL VOLUME 50 ML IV PRN ×2 (06:10→21:20)
[2020-02-13 06:12] LABS: HEMATOCRIT 30.6 % (39.0-53.0); HEMOGLOBIN 10.3 g/dL (13.0-17.5); RED BLOOD COUNT 3.47 x10^6/uL (4.30-5.70); RED CELL DISTRIBUTION WIDTH 14.8 % (11.5-14.5); WHITE BLOOD COUNT 18.4 x10^3/uL (4.0-11.0)
--- NOTE | 2020-02-13 07:21 | RAD ---
Single view chest dated 02/13/2020. Comparison made to 02/11/2020. CLINICAL INDICATION: Ventilator dependent. FINDINGS: Single semiupright portable exam performed. Endotracheal tube, nasogastric tube and right internal jugular catheter in place, unchanged. Heart and mediastinal contours are stable. Widespread airspace disease with perihilar consolidation, similar given differences in technique. No pleural effusion. No pneumothorax. IMPRESSION: 1. Bilateral airspace disease, not significantly changed. 2. Stable position of tubes and lines. Electronically signed by: Stephen Huerta MD (02/13/2020 7:19 AM) [id number]
[2020-02-13 08:09] LABS: BASE EXCESS ABG -8 mmol/L (-3-3); HCO3 ABG 18 mmol/L (21-28); PCO2 ABG 41 mmHg (35-46); PO2 ABG 56 mmHg (75-108); SAT O2 ABG 86 % (92-99)
[2020-02-13 08:14] LABS: FIO2 ABG 90
[2020-02-13] MEDS: DOCUSATE 100 MG/10 ML SOLUTION. PO SCH (08:52)
[2020-02-13] MEDS: LABETALOL HCL 200 MG TABLET PO SCH ×2 (08:52→21:01)
[2020-02-13] MEDS: PANTOPRAZOLE IV PUSH 40 MG VIAL. IVP SCH (08:52)
[2020-02-13] MEDS: ASPIRIN 325 MG TABLET PO SCH (08:52)
[2020-02-13] MEDS: SENNOSIDES/DOCUSATE 8.6/50MG TABLET. PO SCH ×2 (08:52→21:00)
[2020-02-13] MEDS: FUROSEMIDE 40 MG/4 ML VIAL. IVP SCH (08:53)
[2020-02-13] MEDS: VENLAFAXINE 75 MG TABLET. PO SCH ×2 (08:53→21:00)
[2020-02-13] MEDS: metFORMIN 500 MG TABLET PO SCH ×2 (08:53→18:03)
[2020-02-13] MEDS: INSULIN GLARGINE SYRINGE. SQ SCH ×2 (08:56→21:02)
[2020-02-13] MEDS: KETOTIFEN FUMARATE 0.025% OPHTH SOLUTION BOTTLE. OU SCH ×2 (08:56→21:00)
[2020-02-13] MEDS: ELECTROLYTE (ICU) PROTOCOL. MC SCH (08:56)
--- NOTE | 2020-02-13 11:12 | PDOC ---
PROGRESS NOTES Subjective Subjective Patient seen and evaluated Objective Objective Vital Signs Date Time Temp Pulse Resp B/P (MAP) Pulse Ox O2 Delivery O2 Flow Rate FiO2 02/13/20 10:00 87 26 127/56 (79) 94 Ventilator 02/13/20 08:00 97.6 97.6 02/11/20 20:29 15.0 Intake and Output 02/13/20 07:00 Intake Total 4406.33 ml Output Total 1410 ml Balance 2996.33 ml Intake IV Total 2737.33 ml Tube Feeding 1189 ml Other 480 ml Output Urine Total 1410 ml Physical Exam Physical Exam deferred Assessment Assessment Problems Medical Problems: (1) Acute metabolic encephalopathy Status: Acute (2) Acute renal insufficiency Status: Acute (3) DKA (diabetic ketoacidoses) Status: Acute (4) Pneumonia Status: Acute (5) Respiratory failure with hypoxia Status: Acute (6) Suspected 2019 novel coronavirus infection Status: Acute Acute respiratory failure secondary to COVID PNA, intubated/vent. Followed by the pulmonary service. WBC improved at 18. Leukocytosis/sepsis. Continuing present medications. CHRISTIANNE; Cr now at 1.9 Hypertensive urgency; BP stable and controlled. No arrhythmias Hyperlipidemia Prior CVA Acute CHF with possible diastolic dysfunction with ARDS and significant volume repletion. Echo when COVID protocol has been completed Comment Review of Relevant I have reviewed the following items myra (where applicable) has been applied. Labs Laboratory Tests Test 02/11/20 11:42 02/11/20 17:45 02/11/20 21:44 02/11/20 21:50 Glucose (Fingerstick) 326 mg/dL (70-99) 274 mg/dL (70-99) 241 mg/dL (70-99) Heparin Anti-Xa Act, Unfractionated > 1.10 IU/mL (0.30-0.70) Test 02/12/20 00:30 02/12/20 05:45 02/12/20 08:30 02/12/20 11:34 Glucose (Fingerstick) 236 mg/dL (70-99) 261 mg/dL (70-99) 226 mg/dL (70-99) Heparin Anti-Xa Act, Unfractionated > 1.10 IU/mL (0.30-0.70) Sodium Level 140 mmol/L (136-145) Potassium Level 4.3 mmol/L (3.5-5.1) Chloride Level 105 mmol/L (98-107) Carbon Dioxide Level 22 mmol/L (21-32) Anion Gap 13 (6-14) Blood Urea Nitrogen 69 mg/dL (8-26) Creatinine 1.9 mg/dL (0.7-1.3) Estimated GFR (Cockcroft-Gault) 46.2 Glucose Level 272 mg/dL (70-99) Calcium Level 7.3 mg/dL (8.5-10.1) Magnesium Level 2.3 mg/dL (1.8-2.4) O2 Saturation 90 % (92-99) Arterial Blood pH 7.31 (7.35-7.45) Arterial Blood pCO2 at Patient Temp 44 mmHg (35-46) Arterial Blood pO2 at Patient Temp 62 mmHg (75-108) Arterial Blood HCO3 22 mmol/L (21-28) Arterial Blood Base Excess -5 mmol/L (-3-3) FiO2 100 Test 02/12/20 12:00 02/12/20 17:07 02/12/20 18:05 02/12/20 21:09 Heparin Anti-Xa Act, Unfractionated 1.03 IU/mL (0.30-0.70) 0.70 IU/mL (0.30-0.70) Glucose (Fingerstick) 205 mg/dL (70-99) 213 mg/dL (70-99) Test 02/13/20 00:29 02/13/20 00:33 02/13/20 05:54 02/13/20 06:00 Heparin Anti-Xa Act, Unfractionated 0.47 IU/mL (0.30-0.70) 0.52 IU/mL (0.30-0.70) Glucose (Fingerstick) 206 mg/dL (70-99) 196 mg/dL (70-99) White Blood Count 18.4 x10^3/uL (4.0-11.0) Red Blood Count 3.47 x10^6/uL (4.30-5.70) Hemoglobin 10.3 g/dL (13.0-17.5) Hematocrit 30.6 % (39.0-53.0) Mean Corpuscular Volume 88 fL (79-100) Mean Corpuscular Hemoglobin 30 pg (25-35) Mean Corpuscular Hemoglobin Concent 34 g/dL (31-37) Red Cell Distribution Width 14.8 % (11.5-14.5) Platelet Count 185 x10^3/uL (140-400) Test 02/13/20 08:00 02/13/20 08:26 O2 Saturation 86 % (92-99) Arterial Blood pH 7.27 (7.35-7.45) Arterial Blood pCO2 at Patient Temp 41 mmHg (35-46) Arterial Blood pO2 at Patient Temp 56 mmHg (75-108) Arterial Blood HCO3 18 mmol/L (21-28) Arterial Blood Base Excess -8 mmol/L (-3-3) FiO2 90 Glucose (Fingerstick) 196 mg/dL (70-99) Laboratory Tests Test 02/12/20 11:34 02/12/20 12:00 02/12/20 17:07 02/12/20 18:05 Glucose (Fingerstick) 226 mg/dL (70-99) 205 mg/dL (70-99) Heparin Anti-Xa Act, Unfractionated 1.03 IU/mL (0.30-0.70) 0.70 IU/mL (0.30-0.70) Test 02/12/20 21:09 02/13/20 00:29 02/13/20 00:33 02/13/20 05:54 Glucose (Fingerstick) 213 mg/dL (70-99) 206 mg/dL (70-99) 196 mg/dL (70-99) Heparin Anti-Xa Act, Unfractionated 0.47 IU/mL (0.30-0.70) Test 02/13/20 06:00 02/13/20 08:00 02/13/20 08:26 White Blood Count 18.4 x10^3/uL (4.0-11.0) Red Blood Count 3.47 x10^6/uL (4.30-5.70) Hemoglobin 10.3 g/dL (13.0-17.5) Hematocrit 30.6 % (39.0-53.0) Mean Corpuscular Volume 88 fL (79-100) Mean Corpuscular Hemoglobin 30 pg (25-35) Mean Corpuscular Hemoglobin Concent 34 g/dL (31-37) Red Cell Distribution Width 14.8 % (11.5-14.5) Platelet Count 185 x10^3/uL (140-400) Heparin Anti-Xa Act, Unfractionated 0.52 IU/mL (0.30-0.70) O2 Saturation 86 % (92-99) Arterial Blood pH 7.27 (7.35-7.45) Arterial Blood pCO2 at Patient Temp 41 mmHg (35-46) Arterial Blood pO2 at Patient Temp 56 mmHg (75-108) Arterial Blood HCO3 18 mmol/L (21-28) Arterial Blood Base Excess -8 mmol/L (-3-3) FiO2 90 Glucose (Fingerstick) 196 mg/dL (70-99) Microbiology 02/10/20 Urine Culture - Final, Complete 02/02/20 Blood Culture - Final, Complete NO GROWTH AFTER 5 DAYS Medications Current Medications Sodium Chloride 1,000 ml @ 1,000 mls/hr 1X ONCE IV Last administered on 02/02/20at 16:48; Start 02/02/20 at 15:45; Stop 02/02/20 at 16:44; Status DC Etomidate (Amidate) 20 mg 1X ONCE IV Last administered on 02/02/20at 15:54; Start 02/02/20 at 15:45; Stop 02/02/20 at 15:52; Status DC Rocuronium [place] (Zemuron) 50 mg 1X ONCE IV Last administered on 02/02/20at 15:55; Start 02/02/20 at 15:45; Stop 02/02/20 at 15:52; Status DC Propofol 100 ml @ 0 mls/hr CONT PRN IV SEE PROTOCOL Last administered on 02/02/20at 16:33; Start 02/02/20 at 15:45; Stop 02/02/20 at 17:44; Status DC Chlorhexidine Gluconate (Peridex) 15 ml BID MM ; Start 02/02/20 at 21:00; Stop 02/02/20 at 17:39; Status DC Fentanyl Citrate (Fentanyl 2ml Vial) 100 mcg 1X ONCE IV Last administered on 02/02/20at 16:34; Start 02/02/20 at 16:15; Stop 02/02/20 at 16:16; Status DC Sodium Chloride 1,000 ml @ 1,000 mls/hr 1X ONCE IV Last administered on 02/02/20at 16:15; Start 02/02/20 at 16:15; Stop 02/02/20 at 17:20; Status DC Aspirin (Aspirin Rectal Supp) 300 mg 1X ONCE OK Last administered on 02/02/20at 16:35; Start 02/02/20 at 16:15; Stop 02/02/20 at 16:17; Status DC Acetaminophen (Tylenol) 650 mg PRN Q6HRS PRN PO Headaches, Temp > 101.5'; Start 02/02/20 at 16:15 Prochlorperazine Edisylate (Compazine) 5 mg PRN Q6HRS PRN IVP NAUSEA/VOMITING; Start 02/02/20 at 16:15 Prochlorperazine (Compazine) 25 mg PRN Q12HR PRN OK NAUSEA/VOMITING; Start 02/02/20 at 16:15 Info (Icu Electrolyte Protocol) 1 ea DAILY MC Last administered on 02/09/20at 09:00; Start 02/03/20 at 09:00 Heparin Sodium (Porcine) (Heparin Sodium) 5,000 unit Q8HRS SQ Last administered on 02/04/20at 05:32; Start 02/02/20 at 22:00; Stop 02/04/20 at 14:45; Status DC Sodium Chloride (Normal Saline Flush) 3 ml QSHIFT PRN IV AFTER MEDS AND BLOOD DRAWS; Start 02/02/20 at 16:15 Oxycodone/ Acetaminophen (Percocet 5/325) 1 tab PRN Q4HRS PRN PO MILD PAIN, 1ST CHOICE; Start 02/02/20 at 16:15 Morphine Sulfate (Morphine Sulfate) 2 mg PRN Q1HR PRN IV PAIN; Start 02/02/20 at 16:15; Stop 02/11/20 at 11:37; Status DC Senna/Docusate Sodium (Senna Plus) 1 tab BID PO Last administered on 02/13/20at 08:52; Start 02/02/20 at 21:00 Docusate Sodium (Colace) 100 mg BID PO ; Start 02/02/20 at 21:00; Stop 02/04/20 at 19:30; Status DC Lactulose (Lactulose) 20 gm PRN Q12HR PRN PO CONSTIPATION Last administered on 02/12/20at 17:47; Start 02/02/20 at 16:15 Amlodipine Besylate (Norvasc) 10 mg HS PO Last administered on 02/11/20at 21:28; Start 02/02/20 at 21:00; Stop 02/12/20 at 09:16; Status DC Aspirin (Grover Aspirin) 325 mg DAILY PO Last administered on 02/13/20at 08:52; Start 02/03/20 at 09:00 Atorvastatin Calcium (Lipitor) 20 mg QHS PO Last administered on 02/12/20at 20:34; Start 02/02/20 at 21:00 Acetaminophen/ Butalbital/ Caffeine (Fioricet) 1 tab PRN Q6HRS PRN PO MIGRAINE HEADACHE- 1ST CHOICE; Start 02/02/20 at 16:15 Hydrochlorothiazide (Hydrodiuril) 25 mg DAILY PO Last administered on 02/11/20at 07:53; Start 02/03/20 at 09:00; Stop 02/11/20 at 09:55; Status DC Isosorbide Dinitrate (Isordil) 10 mg TID PO Last administered on 02/10/20at 13:53; Start 02/02/20 at 21:00; Stop 02/10/20 at 15:23; Status DC Lisinopril (Prinivil) 40 mg DAILY PO Last administered on 02/11/20at 07:54; Start 02/03/20 at 09:00; Stop 02/12/20 at 09:16; Status DC Metoprolol Tartrate (Lopressor) 50 mg BID PO Last administered on 02/07/20at 21:21; Start 02/02/20 at 21:00; Stop 02/08/20 at 17:13; Status DC Non-Formulary Medication (Hydrochlorothiazide (Hydrochlorothiazide Tablet)) 25 mg DAILY PO ; Start 02/03/20 at 09:00; Status UNV Non-Formulary Medication (Insulin Aspart (Novolog)) 25 unit TIDWMEALS SQ ; Start 02/02/20 at 17:00; Status UNV Non-Formulary Medication (Insulin Glargine,Hum.rec.anlog (Lantus Solostar)) 80 unit QHS SQ ; Start 02/02/20 at 21:00; Status UNV Non-Formulary Medication (Isosorbide Dinitrate ) 20 mg DAILY PO ; Start 02/03/20 at 09:00; Status UNV Meclizine HCl (Antivert) 25 mg PRN Q6HRS PRN PO NAUSEA- 2ND CHOICE; Start 02/02/20 at 17:45 Metformin HCl (Glucophage) 1,000 mg BIDWMEALS PO Last administered on 02/13/20at 08:53; Start 02/02/20 at 17:00 Ketotifen Fumarate (Zaditor) 1 drop BID OU Last administered on 02/13/20at 08:56; Start 02/02/20 at 21:00 Pantoprazole Sodium (PROTONIX VIAL for IV PUSH) 40 mg DAILYAC IVP Last administered on 02/13/20at 08:52; Start 02/03/20 at 07:30 Ondansetron HCl (Zofran Odt) 4 mg PRN Q8HRS PRN PO NAUSEA/VOMITING, 1ST CHOICE PO; Start 02/02/20 at 17:45 Sumatriptan Succinate (Imitrex) 50 mg PRN BID PRN PO MIGRAINE HEADACHE; Start 02/02/20 at 17:45 Non-Formulary Medication (Terazosin Hcl ) 2 cap QHS PO ; Start 02/02/20 at 21:00; Status UNV Venlafaxine HCl (Effexor) 150 mg BID PO Last administered on 02/13/20at 08:53; Start 02/02/20 at 21:00 Fentanyl Citrate 30 ml @ 0 mls/hr CONT PRN IV SEE PROTOCOL Last administered on 02/06/20at 05:48; Start 02/02/20 at 16:30; Stop 02/06/20 at 10:59; Status DC Propofol 100 ml @ 0 mls/hr CONT PRN IV SEE PROTOCOL Last administered on 02/09/20at 17:03; Start 02/02/20 at 16:30 Fentanyl Citrate (Fentanyl 2ml Vial) 25 mcg PRN Q1HR PRN IV SEE COMMENTS; S tart 02/02/20 at 16:30 Fentanyl Citrate (Fentanyl 2ml Vial) 50 mcg PRN Q1HR PRN IV SEE COMMENTS; Start 02/02/20 at 16:30 Chlorhexidine Gluconate (Peridex) 15 ml BID MM Last administered on 02/07/20at 21:20; Start 02/02/20 at 21:00; Stop 02/08/20 at 18:56; Status DC Morphine Sulfate (Morphine Sulfate) 2 mg PRN Q1HR PRN IV SEE COMMENTS.; Start 02/02/20 at 16:30 Morphine Sulfate (Morphine Sulfate) 4 mg PRN Q1HR PRN IV SEE COMMENTS.; Start 02/02/20 at 16:30 Midazolam HCl (Versed) 1 mg PRN Q30MIN PRN IV SEE COMMENTS.; Start 02/02/20 at 16:30 Piperacillin Sod/ Tazobactam Sod 4.5 gm/Sodium Chloride 100 ml @ 200 mls/hr 1X ONCE IV Last administered on 02/02/20at 17:03; Start 02/02/20 at 16:30; Stop 02/02/20 at 16:59; Status DC Azithromycin 250 ml @ 250 mls/hr 1X ONCE IV Last administered on 02/02/20at 17:40; Start 02/02/20 at 16:30; Stop 02/02/20 at 17:34; Status DC Dexamethasone Sodium Phosphate (Decadron) 10 mg 1X ONCE IVP Last administered on 02/02/20at 16:54; Start 02/02/20 at 16:30; Stop 02/02/20 at 16:33; Status DC Midazolam HCl (Versed) 5 mg 1X ONCE IV Last administered on 02/02/20at 16:35; Start 02/02/20 at 16:45; Stop 02/02/20 at 16:46; Status DC Insulin Human Regular (HumuLIN R VIAL) 8 unit 1X ONCE SQ Last administered on 02/02/20at 16:51; Start 02/02/20 at 16:45; Stop 02/02/20 at 16:46; Status DC Sodium Chloride 1,000 ml @ 500 mls/hr Q2H IV Last administered on 02/02/20at 18:33; Start 02/02/20 at 16:36; Stop 02/02/20 at 18:35; Status DC Insulin Human Regular 100 unit/ Sodium Chloride 101 ml @ 0 mls/hr CONT PRN PRN IV PER PROTOCOL Last administered on 02/03/20at 02:08; Start 02/02/20 at 16:45; Stop 02/03/20 at 02:31; Status DC Insulin Human Regular 100 ml @ As Directed STK-MED ONCE IV ; Start 02/02/20 at 16:41; Stop 02/02/20 at 16:41; Status DC Etomidate (Amidate) 20 mg 1X ONCE IV ; Start 02/02/20 at 17:15; Stop 02/02/20 at 17:22; Status DC Rocuronium [place] (Zemuron) 50 mg 1X ONCE IV ; Start 02/02/20 at 17:15; Stop 02/02/20 at 17:34; Status DC Piperacillin Sod/ Tazobactam Sod 3.375 gm/Sodium Chloride 50 ml @ 100 mls/hr Q6HRS IV Last administered on 02/13/20at 05:32; Start 02/03/20 at 00:00 Sodium Chloride 1,000 ml @ 250 mls/hr Q4H IV Last administered on 02/02/20at 18:43; Start 02/02/20 at 18:45; Stop 02/02/20 at 22:40; Status DC Pantoprazole Sodium (PROTONIX VIAL for IV PUSH) 40 mg 1X ONCE IVP Last administered on 02/02/20at 22:47; Start 02/02/20 at 20:15; Stop 02/02/20 at 20:40; Status DC Labetalol HCl (Normodyne Iv Push) 10 mg PRN Q4HRS PRN IVP HYPERTENSION, 2ND CHOICE Last administered on 02/04/20at 05:20; Start 02/02/20 at 20:15; Stop 02/10/20 at 15:23; Status DC Dextrose/Sodium Chloride 1,000 ml @ 250 mls/hr Q4H IV Last administered on 02/03/20at 07:59; Start 02/02/20 at 22:45; Stop 02/03/20 at 11:23; Status DC Insulin Human Regular 100 unit/ Sodium Chloride 101 ml @ 0 mls/hr CONT PRN IV SEE I/O RECORD; Start 02/03/20 at 02:15 Potassium Chloride/Water 100 ml @ 100 mls/hr PRN Q1HR PRN IV SEE COMMENTS; Start 02/03/20 at 05:00 Potassium Chloride/Water 100 ml @ 100 mls/hr Q1H IV Last administered on 02/03/20at 07:58; Start 02/03/20 at 05:00; Stop 02/03/20 at 08:59; Status DC Insulin Glargine (Lantus Syringe) 18 unit BID SQ Last administered on 02/10/20at 08:57; Start 02/03/20 at 09:00; Stop 02/10/20 at 11:00; Status DC Insulin Human Lispro (HumaLOG) 0-9 UNITS Q6HRS SQ Last administered on 02/13/20at 06:09; Start 02/03/20 at 12:00 Dextrose (Dextrose 50%-Water Syringe) 12.5 gm PRN Q15MIN PRN IV SEE COMMENTS; Start 02/03/20 at 06:15 Sodium Chloride 1,000 ml @ 125 mls/hr 1X ONCE IV Last administered on 02/03/20at 12:01; Start 02/03/20 at 11:30; Stop 02/03/20 at 19:29; Status DC Vecuronium [place] (Norcuron Bolus) 10 mg PRN Q6HRS PRN IV SEDATION Last administered on 02/04/20at 12:09; Start 02/04/20 at 07:30; Stop 02/04/20 at 19 :30; Status DC Potassium Chloride/Water 100 ml @ 100 mls/hr 1X ONCE IV Last administered on 02/04/20at 10:04; Start 02/04/20 at 10:00; Stop 02/04/20 at 10:59; Status DC Tocilizumab 400 mg/Sodium Chloride 100 ml @ 100 mls/hr 1X ONCE IV Last administered on 02/04/20at 14:53; Start 02/04/20 at 13:00; Stop 02/04/20 at 13:59; Status DC Enoxaparin Sodium (Lovenox 40mg Syringe) 40 mg BID SQ Last administered on 02/11/20at 07:56; Start 02/04/20 at 21:00; Stop 02/11/20 at 16:16; Status DC Sodium Chloride 1,000 ml @ 125 mls/hr Q8H IV Last administered on 02/10/20at 02:10; Start 02/04/20 at 16:00; Stop 02/10/20 at 08:45; Status DC Vecuronium [place] (Norcuron Bolus) 10 mg PRN Q1HR PRN IV SEDATION Last administered on 02/09/20at 12:12; Start 02/04/20 at 19:30 Docusate Sodium (Colace Solution) 100 mg DAILY PO Last administered on 02/13/20at 08:52; Start 02/05/20 at 09:00 Norepinephrine Bitartrate 8 mg/ Dextrose 258 ml @ 15.519 mls/ hr CONT PRN IV PER PROTOCOL Last administered on 02/07/20at 02:51; Start 02/04/20 at 22:30 Potassium Bicarbonate (Potassium Effervescent Tablet) 40 meq 1X ONCE PO Last administered on 02/05/20at 08:26; Start 02/05/20 at 07:45; Stop 02/05/20 at 07:46; Status DC Midazolam HCl 100 mg/Sodium Chloride 100 ml @ 1 mls/hr CONT PRN IV . Last administered on 02/13/20at 01:19; Start 02/05/20 at 10:00 Methylprednisolone Sodium Succinate (SOLU-Medrol 40MG VIAL) 40 mg Q8HRS IV Last administered on 02/13/20at 05:32; Start 02/05/20 at 14:00 Hydralazine HCl (Apresoline Inj) 10 mg PRN Q4HRS PRN IVP ELEVATED BP, SEE COMMENTS Last administered on 02/09/20at 02:15; Start 02/05/20 at 17:00; Stop 02/09/20 at 09:08; Status DC Fentanyl Citrate 55 ml @ 1.98 mls/hr CONT PRN IV SEE PROTOCOL Last administered on 02/12/20at 22:26; Start 02/06/20 at 11:00 Furosemide (Lasix) 20 mg 1X ONCE IVP Last administered on 02/06/20at 14:08; Start 02/06/20 at 14:00; Stop 02/06/20 at 14:01; Status DC Phenylephrine HCl 50 mg/Sodium Chloride 255 ml @ 13.372 mls/ hr CONT PRN IV SEE I/O RECORD Last administered on 02/07/20at 05:51; Start 02/07/20 at 05:45 Furosemide (Lasix) 20 mg 1X ONCE IVP Last administered on 02/07/20at 13:12; Start 02/07/20 at 13:15; Stop 02/07/20 at 13:16; Status DC Nicardipine HCl 50 mg/Sodium Chloride 250 ml @ 25 mls/hr CONT PRN IV SEE I/O RECORD Last administered on 02/12/20at 20:24; Start 02/08/20 at 10:15 Potassium Chloride/Water 100 ml @ 100 mls/hr Q1H IV Last administered on 02/08/20at 18:17; Start 02/08/20 at 16:00; Stop 02/08/20 at 17:59; Status DC Metoprolol Tartrate (Lopressor Vial) 5 mg Q6HRS IVP Last administered on 02/10/20at 11:56; Start 02/08/20 at 18:00; Stop 02/10/20 at 15:23; Status DC Hydralazine HCl (Apresoline Inj) 10 mg PRN Q4HRS PRN IVP ELEVATED BP, SEE COMMENTS Last administered on 02/10/20at 16:31; Start 02/08/20 at 17:15 Lorazepam 40 mg/ Sodium Chloride 270 ml @ 0 mls/hr CONT PRN IV SEE PROTOCOL Last administered on 02/13/20at 08:54; Start 02/09/20 at 09:00 Sodium Bicarbonate (Sodium Bicarb Adult 8.4% Syr) 100 meq 1X ONCE IV Last administered on 02/09/20at 09:18; Start 02/09/20 at 09:00; Stop 02/09/20 at 09:03; Status DC Potassium Chloride/Water 100 ml @ 100 mls/hr 1X ONCE IV Last administered on 02/09/20at 11:35; Start 02/09/20 at 11:00; Stop 02/09/20 at 11:59; Status DC Vecuronium [place] 50 mg/ Miscellaneous 50 ml @ 4.464 mls/ hr CONT PRN IV SEE I/O RECORD Last administered on 02/13/20at 06:10; Start 02/09/20 at 12:15 Albumin Human 250 ml @ 62.5 mls/hr 1X ONCE IV Last administered on 02/10/20at 08:56; Start 02/10/20 at 08:45; Stop 02/10/20 at 12:44; Status DC Sodium Bicarbonate (Sodium Bicarb Adult 8.4% Syr) 100 meq 1X ONCE IV Last administered on 02/10/20at 08:56; Start 02/10/20 at 08:45; Stop 02/10/20 at 08:46; Status DC Furosemide (Lasix) 40 mg 1X ONCE IVP Last administered on 02/10/20at 10:57; Start 02/10/20 at 10:45; Stop 02/10/20 at 10:46; Status DC Insulin Glargine (Lantus Syringe) 24 unit BID SQ Last administered on 02/11/20at 09:52; Start 02/10/20 at 21:00; Stop 02/11/20 at 13:31; Status DC Isosorbide Dinitrate (Isordil) 20 mg TID PO Last administered on 02/11/20at 07:55; Start 02/10/20 at 21:00; Stop 02/11/20 at 09:55; Status DC Labetalol HCl (Normodyne Iv Push) 20 mg PRN Q4HRS PRN IVP HYPERTENSION, 2ND CHOICE; Start 02/10/20 at 15:30; Stop 02/12/20 at 09:16; Status DC Metoprolol Tartrate (Lopressor Vial) 10 mg Q6HRS IVP Last administered on 02/12/20at 05:51; Start 02/10/20 at 18:00; Stop 02/12/20 at 09:16; Status DC Metoprolol Tartrate (Lopressor Vial) 5 mg 1X ONCE IVP Last administered on 02/10/20at 15:46; Start 02/10/20 at 15:30; Stop 02/10/20 at 15:31; Status DC Isosorbide Dinitrate (Isordil) 10 mg 1X ONCE PO Last administered on 02/10/20at 15:44; Start 02/10/20 at 15:30; Stop 02/10/20 at 15:31; Status DC Isosorbide Dinitrate (Isordil) 40 mg Q8HRS PO Last administered on 02/13/20at 05:32; Start 02/11/20 at 14:00 Hydralazine HCl (Apresoline) 50 mg Q8HRS PO Last administered on 02/12/20at 05:52; Start 02/11/20 at 14:00; Stop 02/12/20 at 09:16; Status DC Clonidine HCl (Catapres) 0.1 mg PRN Q1HR PRN PO HYPERTENSION Last administered on 02/11/20at 16:03; Start 02/11/20 at 10:00 Furosemide (Lasix) 40 mg DAILY IVP Last administered on 02/13/20at 08:53; Start 02/11/20 at 11:00 Insulin Glargine (Lantus Syringe) 28 unit BID SQ Last administered on 02/13/20at 08:56; Start 02/11/20 at 21:00 Heparin Sodium/ Dextrose 250 ml @ 16.4 mls/hr CONT PRN IV PER PROTOCOL Last administered on 02/12/20at 13:52; Start 02/11/20 at 16:30 Heparin Sodium (Porcine) (Heparin Sodium) 3,100 unit PRN Q6HRS PRN IV FOR UFH LEVEL LESS THAN 0.2; Start 02/11/20 at 16:30 Heparin Sodium (Porcine) (Heparin Sodium) 1,550 unit PRN Q6HRS PRN IV FOR UFH LEVEL 0.2 - 0.29; Start 02/11/20 at 16:30 Hydralazine HCl (Apresoline) 100 mg Q8HRS PO Last administered on 02/13/20at 05:31; Start 02/12/20 at 10:00 Labetalol HCl (Trandate) 400 mg BID PO Last administered on 02/13/20at 08:52; Start 02/12/20 at 21:00 Furosemide (Lasix) 40 mg 1X ONCE IVP Last administered on 02/12/20at 10:10; Start 02/12/20 at 09:30; Stop 02/12/20 at 09:31; Status DC Active Scripts Active Aspirin 325 Mg Tablet 325 Mg PO DAILY [id number] 50-325-40 (Butalb/Acetaminophen/Caffeine) 1 Each Tablet 1-2 Tab PO PRN Q4HRS PRN MDD 6 tablets 2 Days Ondansetron Odt (Ondansetron) 4 Mg Tab.rapdis 1 Tab PO PRN Q6-8HRS PRN Coirwe-Aveaqbdk-Ggpp 50-325-40 (Butalb/Acetaminophen/Caffeine) 1 Each Tablet 1 Each PO Q6HRS PRN Reported Venlafaxine Hcl Er (Venlafaxine Hcl) 150 Mg Tab.er.24 1 Tab PO BID Novolog (Insulin Aspart) 100 Unit/1 Ml Cartridge 25 Unit SQ TIDWMEALS Metformin Hcl 1,000 Mg Tablet 1,000 Mg PO BIDWMEALS Zofran (Ondansetron Hcl) 4 Mg Tablet 1 Tab PO Q6HRS Terazosin Hcl 2 Mg Capsule 2 Cap PO QHS Lantus Solostar (Insulin Glargine,Hum.rec.anlog) 100 Unit/1 Ml Insuln.pen 80 Unit SQ QHS Metoprolol Tartrate 50 Mg Tablet 1 Tab PO BID Omeprazole 20 Mg Capsule.dr 20 Mg PO BID Lisinopril 40 Mg Tablet 1 Tab PO DAILY Imitrex (Sumatriptan Succinate) 50 Mg Tablet 50 Mg PO PRN BID PRN Hydrochlorothiazide Tablet (Hydrochlorothiazide) 12.5 Mg Tablet 25 Mg PO DAILY Meclizine Hcl 25 Mg Tablet 25 Mg PO PRN TID PRN 90 Days Patanol (Olopatadine Hcl) 5 Ml Drops 1 Drop EACHEYE BID Atorvastatin Calcium 20 Mg Tablet 1 Tab PO DAILY Isosorbide Mononitrate 20 Mg Tablet 20 Mg PO BID Amlodipine Besylate 10 Mg Tablet 10 Mg PO HS Isosorbide Dinitrate 30 Mg Tablet 20 Mg PO DAILY Hydrochlorothiazide Tablet (Hydrochlorothiazide) 25 Mg Tablet 25 Mg PO DAILY Vitals/I & O Vital Sign - Last 24 Hours 02/12/20 02/12/20 02/12/20 02/12/20 11:42 12:00 12:00 12:00 Temp 97.9 97.9 Pulse 98 B/P (MAP) 147/62 (90) Pulse Ox 98 98 O2 Delivery Ventilator Mechanical Ventilator Ventilator 02/12/20 02/12/20 02/12/20 02/12/20 13:00 13:28 13:29 14:00 Pulse 102 101 101 106 B/P (MAP) 155/64 (94) 148/63 145/67 148/62 (90) Pulse Ox 99 98 O2 Delivery Ventilator Ventilator 02/12/20 02/12/20 02/12/20 02/12/20 15:00 15:54 15:54 16:00 Temp 98.6 98.6 Pulse 104 101 B/P (MAP) 142/60 (87) 139/58 (85) Pulse Ox 99 98 O2 Delivery Ventilator Mechanical Ventilator Ventilator 02/12/20 02/12/20 02/12/20 02/12/20 16:14 17:00 18:00 19:00 Pulse 104 102 109 Resp B/P (MAP) 144/60 (88) 156/66 (96) 153/64 (93) Pulse Ox 99 99 99 99 O2 Delivery Ventilator Ventilator Ventilator Ventilator 02/12/20 02/12/20 02/12/20 02/12/20 20:00 20:00 20:00 20:20 Pulse 110 Resp 26 B/P (MAP) 156/64 (94) Pulse Ox 99 99 O2 Delivery Ventilator Mechanical Ventilator Ventilator 02/12/20 02/12/20 02/12/20 02/12/20 20:34 20:41 20:43 21:00 Temp 98.9 98.9 Pulse 110 110 110 98 Resp 26 B/P (MAP) 148/63 155/65 151/63 123/56 (78) Pulse Ox 98 O2 Delivery Ventilator 02/12/20 02/12/20 02/13/20 02/13/20 22:00 23:00 00:00 00:00 Pulse 95 93 Resp 26 26 B/P (MAP) 120/56 (77) 120/57 (78) Pulse Ox 98 98 O2 Delivery Ventilator Ventilator Mechanical Ventilator 02/13/20 02/13/20 02/13/20 02/13/20 00:00 00:20 01:00 02:00 Temp 98.8 98.8 Pulse 92 90 90 Resp 26 26 B/P (MAP) 126/59 (81) 121/56 (77) 128/61 (83) Pulse Ox 98 99 97 98 O2 Delivery Ventilator Ventilator Ventilator Ventilator 02/13/20 02/13/20 02/13/20 02/13/20 03:00 04:00 04:00 04:00 Pulse 89 90 Resp 26 26 B/P (MAP) 132/60 (84) 142/62 (88) Pulse Ox 98 98 O2 Delivery Ventilator Ventilator Mechanical Ventilator 02/13/20 02/13/20 02/13/20 02/13/20 04:35 05:00 05:31 05:32 Temp 98.8 98.8 Pulse 90 89 89 Resp 26 B/P (MAP) 141/62 (88) 148/62 148/64 Pulse Ox 99 99 O2 Delivery Ventilator Ventilator 02/13/20 02/13/20 02/13/20 02/13/20 06:00 07:00 07:30 08:00 Pulse 87 88 Resp 26 26 B/P (MAP) 140/60 (86) 144/61 (88) Pulse Ox 98 99 98 O2 Delivery Ventilator Ventilator Ventilator 6/02/13/20 02/13/20 02/13/20 08:00 08:00 08:52 09:00 Temp 97.6 97.6 Pulse 90 90 88 Resp 26 B/P (MAP) 175/66 (102) 175/66 132/55 (80) Pulse Ox 98 95 O2 Delivery Ventilator Mechanical Ventilator Ventilator 02/13/20 10:00 Pulse 87 Resp 26 B/P (MAP) 127/56 (79) Pulse Ox 94 O2 Delivery Ventilator Intake and Output 02/12/20 02/12/20 02/13/20 15:00 23:00 07:00 Intake Total 450 ml 2509.03 ml 1447.3 ml Output Total 520 ml 465 ml 425 ml Balance -70 ml 2044.03 ml 1022.3 ml Justicifation of Admission Dx: Justifications for Admission: Justification of Admission Dx: Yes Sepsis: Altered Mental Status IDALMIS PARTIDA MD Feb 13, 2020 11:12
--- NOTE | 2020-02-13 12:02 | PDOC ---
PULMONARY PROGRESS NOTES Subjective Currently A/C mode -- 18 of PEEP 100% FiO2-- sedated with versed, Fent, and VEC gtt for paralysis nursing reports hypoxia with turning Vitals Vital Signs Date Time Temp Pulse Resp B/P (MAP) Pulse Ox O2 Delivery O2 Flow Rate FiO2 02/13/20 11:41 94 Ventilator 02/13/20 11:00 83 26 140/50 (80) 02/13/20 08:00 97.6 97.6 Comments ros unable to obtain sedated on vent Visual exam performed due to COVID-19 pandemic Patient appears to be comfortable in sync with the ventilator, no significant Labs Laboratory Tests Test 02/11/20 17:45 02/11/20 21:44 02/11/20 21:50 02/12/20 00:30 Glucose (Fingerstick) 274 mg/dL (70-99) 241 mg/dL (70-99) 236 mg/dL (70-99) Heparin Anti-Xa Act, Unfractionated > 1.10 IU/mL (0.30-0.70) Test 02/12/20 05:45 02/12/20 08:30 02/12/20 11:34 02/12/20 12:00 Heparin Anti-Xa Act, Unfractionated > 1.10 IU/mL (0.30-0.70) 1.03 IU/mL (0.30-0.70) Sodium Level 140 mmol/L (136-145) Potassium Level 4.3 mmol/L (3.5-5.1) Chloride Level 105 mmol/L (98-107) Carbon Dioxide Level 22 mmol/L (21-32) Anion Gap 13 (6-14) Blood Urea Nitrogen 69 mg/dL (8-26) Creatinine 1.9 mg/dL (0.7-1.3) Estimated GFR (Cockcroft-Gault) 46.2 Glucose Level 272 mg/dL (70-99) Glucose (Fingerstick) 261 mg/dL (70-99) 226 mg/dL (70-99) Calcium Level 7.3 mg/dL (8.5-10.1) Magnesium Level 2.3 mg/dL (1.8-2.4) O2 Saturation 90 % (92-99) Arterial Blood pH 7.31 (7.35-7.45) Arterial Blood pCO2 at Patient Temp 44 mmHg (35-46) Arterial Blood pO2 at Patient Temp 62 mmHg (75-108) Arterial Blood HCO3 22 mmol/L (21-28) Arterial Blood Base Excess -5 mmol/L (-3-3) FiO2 100 Test 02/12/20 17:07 02/12/20 18:05 02/12/20 21:09 02/13/20 00:29 Glucose (Fingerstick) 205 mg/dL (70-99) 213 mg/dL (70-99) Heparin Anti-Xa Act, Unfractionated 0.70 IU/mL (0.30-0.70) 0.47 IU/mL (0.30-0.70) Test 02/13/20 00:33 02/13/20 05:54 02/13/20 06:00 02/13/20 08:00 Glucose (Fingerstick) 206 mg/dL (70-99) 196 mg/dL (70-99) White Blood Count 18.4 x10^3/uL (4.0-11.0) Red Blood Count 3.47 x10^6/uL (4.30-5.70) Hemoglobin 10.3 g/dL (13.0-17.5) Hematocrit 30.6 % (39.0-53.0) Mean Corpuscular Volume 88 fL (79-100) Mean Corpuscular Hemoglobin 30 pg (25-35) Mean Corpuscular Hemoglobin Concent 34 g/dL (31-37) Red Cell Distribution Width 14.8 % (11.5-14.5) Platelet Count 185 x10^3/uL (140-400) Heparin Anti-Xa Act, Unfractionated 0.52 IU/mL (0.30-0.70) O2 Saturation 86 % (92-99) Arterial Blood pH 7.27 (7.35-7.45) Arterial Blood pCO2 at Patient Temp 41 mmHg (35-46) Arterial Blood pO2 at Patient Temp 56 mmHg (75-108) Arterial Blood HCO3 18 mmol/L (21-28) Arterial Blood Base Excess -8 mmol/L (-3-3) FiO2 90 Test 02/13/20 08:26 Glucose (Fingerstick) 196 mg/dL (70-99) Laboratory Tests Test 02/12/20 12:00 02/12/20 17:07 02/12/20 18:05 02/12/20 21:09 Heparin Anti-Xa Act, Unfractionated 1.03 IU/mL (0.30-0.70) 0.70 IU/mL (0.30-0.70) Glucose (Fingerstick) 205 mg/dL (70-99) 213 mg/dL (70-99) Test 02/13/20 00:29 02/13/20 00:33 02/13/20 05:54 02/13/20 06:00 Heparin Anti-Xa Act, Unfractionated 0.47 IU/mL (0.30-0.70) 0.52 IU/mL (0.30-0.70) Glucose (Fingerstick) 206 mg/dL (70-99) 196 mg/dL (70-99) White Blood Count 18.4 x10^3/uL (4.0-11.0) Red Blood Count 3.47 x10^6/uL (4.30-5.70) Hemoglobin 10.3 g/dL (13.0-17.5) Hematocrit 30.6 % (39.0-53.0) Mean Corpuscular Volume 88 fL (79-100) Mean Corpuscular Hemoglobin 30 pg (25-35) Mean Corpuscular Hemoglobin Concent 34 g/dL (31-37) Red Cell Distribution Width 14.8 % (11.5-14.5) Platelet Count 185 x10^3/uL (140-400) Test 02/13/20 08:00 02/13/20 08:26 O2 Saturation 86 % (92-99) Arterial Blood pH 7.27 (7.35-7.45) Arterial Blood pCO2 at Patient Temp 41 mmHg (35-46) Arterial Blood pO2 at Patient Temp 56 mmHg (75-108) Arterial Blood HCO3 18 mmol/L (21-28) Arterial Blood Base Excess -8 mmol/L (-3-3) FiO2 90 Glucose (Fingerstick) 196 mg/dL (70-99) Medications Active Scripts Medications Dose Route/Sig Max Daily Dose Days Date Category Aspirin 325 Mg Tablet 325 Mg PO DAILY 03/20/19 Rx Venlafaxine Hcl Er (Venlafaxine Hcl) 150 Mg Tab.er.24 1 Tab PO BID 03/18/19 Reported Novolog (Insulin Aspart) 100 Unit/1 Ml Cartridge 25 Unit SQ TIDWMEALS 03/18/19 Reported Metformin Hcl 1,000 Mg Tablet 1,000 Mg PO BIDWMEALS 03/18/19 Reported Zofran (Ondansetron Hcl) 4 Mg Tablet 1 Tab PO Q6HRS 03/18/19 Reported Terazosin Hcl 2 Mg Capsule 2 Cap PO QHS 03/18/19 Reported Lantus Solostar (Insulin Glargine,Hum.rec.anlog) 100 Unit/1 Ml Insuln.pen 80 Unit SQ QHS 03/18/19 Reported Metoprolol Tartrate 50 Mg Tablet 1 Tab PO BID 03/18/19 Reported Omeprazole 20 Mg Capsule.dr 20 Mg PO BID 03/18/19 Reported Lisinopril 40 Mg Tablet 1 Tab PO DAILY 03/18/19 Reported Xydzxl-Yigbvfen-Exvw 50-325-40 (Butalb/Acetaminophen/Caffeine) 1 Each Tablet 1-2 Tab PO PRN Q4HRS PRN MDD 6 tablets 2 07/30/18 Rx Imitrex (Sumatriptan Succinate) 50 Mg Tablet 50 Mg PO PRN BID PRN 01/15/15 Reported Hydrochlorothiazide Tablet (Hydrochlorothiazide) 12.5 Mg Tablet 25 Mg PO DAILY 01/15/15 Reported Meclizine Hcl 25 Mg Tablet 25 Mg PO PRN TID PRN 90 01/15/15 Reported Patanol (Olopatadine Hcl) 5 Ml Drops 1 Drop EACHEYE BID 01/11/15 Reported Atorvastatin Calcium 20 Mg Tablet 1 Tab PO DAILY 01/11/15 Reported Isosorbide Mononitrate 20 Mg Tablet 20 Mg PO BID 08/22/13 Reported Amlodipine Besylate 10 Mg Tablet 10 Mg PO HS 08/22/13 Reported Isosorbide Dinitrate 30 Mg Tablet 20 Mg PO DAILY 07/15/19 Reported Hydrochlorothiazide Tablet (Hydrochlorothiazide) 25 Mg Tablet 25 Mg PO DAILY 07/15/19 Reported Ondansetron Odt (Ondansetron) 4 Mg Tab.rapdis 1 Tab PO PRN Q6-8HRS PRN 01/31/19 Rx Mwunki-Cvxckoog-Qnnn 50-325-40 (Butalb/Acetaminophen/Caffeine) 1 Each Tablet 1 Each PO Q6HRS PRN 01/31/19 Rx Comments CXR: IMPRESSION: 1. Bilateral airspace disease, not significantly changed. 2. Stable position of tubes and lines.. Impression . 1. Acute hypoxic respiratory failure secondary to COVID-19 pneumonia and ARDS 2. COVID-19 sepsis. 3. Abnormal chest x-ray 4. 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 5. Diabetic ketoacidosis, now anion gap closed and being monitored by PCP.BS better 6. Hypernatremia, s/p IV fluids. resolved 7. Hypertension/ cardene 8. Possible acute pulmonary emboli Plan . Continue current ventilator support A/C mode PEEP and 18, and FI02 100%, ABG reviewed, CXR-- increased rate Cont. heparin gtt for presumptive PE Broad-spectrum antibiotics PRN Lasix Status post convalescent plasma status post Tocilizumab on 02/03/2020 FULL code, will discuss will family D/W RN and RT Total cumulative critical care time of 30 minutes, reviewing data, chest x-ray, and labs. KIMBERLY LOPEZ MD Feb 13, 2020 12:02
--- NOTE | 2020-02-13 13:58 | PDOC ---
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 Diabetes mellitus type 2 insulin requiring Severe anion gap metabolic acidosis resolved Plan: isolation cont ICU VENT SUPPORT AC mode 100%FIO2/ 10 PEEP fluid resuscitation D/C IV NS 02/09 DKA protocol Broad spectrum antibiotics for pneumonic process POS COVID 19 infection supportive measures vent management, will consult pulmonology for assistance. further recommendations based on clinical course DVT prophylaxis: heparin cardiology consult cxr 02/06 worse I>>>O will give low dose lasix s/p convalescent plasma. s/p Tocilizumab 02/03 titrate off cardene and monitor BP trend. CHK IONIZED CA++ VTE Prophylaxis Ordered VTE Prophylaxis Devices: No VTE Pharmacological Prophylaxi: Yes History of Present Illness History of Present Illness 02/10 Suspect gram negative organism pneumonia worsening hypoxia AC mode 100%FIO2/ 9 PEEP poor prognosis, son considering DNR status, family discussing 02/11 No acute events reported overnight, case discussed with nursing staff patient in no acute distress, continues to be critically ill and vent requirements are quite significant. Prognosis is quite guarded, all concerns addressed to the best of my abilities during my visit 02/12 No acute events reported overnight, case discussed with nursing staff patient in no acute distress no complaints during my visit, no recent changes and unfortunately he is not tolerating changes in position little less pronating. Still requiring quite a ventilatory support Justicifation of Admission Dx: Justicifation of Admission Dx: Justifications for Admission: Justification of Admission Dx: Yes Sepsis: Altered Mental Status Vitals Vitals Vital Signs Date Time Temp Pulse Resp B/P (MAP) Pulse Ox O2 Delivery O2 Flow Rate FiO2 02/13/20 13:00 76 28 140/59 (86) 96 Ventilator 02/13/20 08:00 97.6 97.6 Physical Exam Physical Exam SEDATED ON VENT visual exam done due to COVID pandemia EXTREMITIES: Without any cyanosis. NEUROLOGIC: Sedated PSYCHIATRIC: uanble to obtain due to acute process . SKIN: No ulcerations General: Other (sedated ) Extremities: No edema Skin: No significant lesion Labs LABS Laboratory Tests Test 02/12/20 17:07 02/12/20 18:05 02/12/20 21:09 02/13/20 00:29 Glucose (Fingerstick) 205 mg/dL (70-99) 213 mg/dL (70-99) Heparin Anti-Xa Act, Unfractionated 0.70 IU/mL (0.30-0.70) 0.47 IU/mL (0.30-0.70) Test 02/13/20 00:33 02/13/20 05:54 02/13/20 06:00 02/13/20 08:00 Glucose (Fingerstick) 206 mg/dL (70-99) 196 mg/dL (70-99) White Blood Count 18.4 x10^3/uL (4.0-11.0) Red Blood Count 3.47 x10^6/uL (4.30-5.70) Hemoglobin 10.3 g/dL (13.0-17.5) Hematocrit 30.6 % (39.0-53.0) Mean Corpuscular Volume 88 fL (79-100) Mean Corpuscular Hemoglobin 30 pg (25-35) Mean Corpuscular Hemoglobin Concent 34 g/dL (31-37) Red Cell Distribution Width 14.8 % (11.5-14.5) Platelet Count 185 x10^3/uL (140-400) Heparin Anti-Xa Act, Unfractionated 0.52 IU/mL (0.30-0.70) O2 Saturation 86 % (92-99) Arterial Blood pH 7.27 (7.35-7.45) Arterial Blood pCO2 at Patient Temp 41 mmHg (35-46) Arterial Blood pO2 at Patient Temp 56 mmHg (75-108) Arterial Blood HCO3 18 mmol/L (21-28) Arterial Blood Base Excess -8 mmol/L (-3-3) FiO2 90 Test 02/13/20 08:26 Glucose (Fingerstick) 196 mg/dL (70-99) Assessment and Plan Assessmemt and Plan Problems Medical Problems: (1) Acute metabolic encephalopathy Status: Acute (2) Acute renal insufficiency Status: Acute (3) DKA (diabetic ketoacidoses) Status: Acute (4) Pneumonia Status: Acute (5) Respiratory failure with hypoxia Status: Acute (6) Suspected 2019 novel coronavirus infection Status: Acute Comment Review of Relevant I have reviewed the following items myra (where applicable) has been applied. Labs Laboratory Tests Test 02/11/20 17:45 02/11/20 21:44 02/11/20 21:50 02/12/20 00:30 Glucose (Fingerstick) 274 mg/dL (70-99) 241 mg/dL (70-99) 236 mg/dL (70-99) Heparin Anti-Xa Act, Unfractionated > 1.10 IU/mL (0.30-0.70) Test 02/12/20 05:45 02/12/20 08:30 02/12/20 11:34 02/12/20 12:00 Heparin Anti-Xa Act, Unfractionated > 1.10 IU/mL (0.30-0.70) 1.03 IU/mL (0.30-0.70) Sodium Level 140 mmol/L (136-145) Potassium Level 4.3 mmol/L (3.5-5.1) Chloride Level 105 mmol/L (98-107) Carbon Dioxide Level 22 mmol/L (21-32) Anion Gap 13 (6-14) Blood Urea Nitrogen 69 mg/dL (8-26) Creatinine 1.9 mg/dL (0.7-1.3) Estimated GFR (Cockcroft-Gault) 46.2 Glucose Level 272 mg/dL (70-99) Glucose (Fingerstick) 261 mg/dL (70-99) 226 mg/dL (70-99) Calcium Level 7.3 mg/dL (8.5-10.1) Magnesium Level 2.3 mg/dL (1.8-2.4) O2 Saturation 90 % (92-99) Arterial Blood pH 7.31 (7.35-7.45) Arterial Blood pCO2 at Patient Temp 44 mmHg (35-46) Arterial Blood pO2 at Patient Temp 62 mmHg (75-108) Arterial Blood HCO3 22 mmol/L (21-28) Arterial Blood Base Excess -5 mmol/L (-3-3) FiO2 100 Test 02/12/20 17:07 02/12/20 18:05 02/12/20 21:09 02/13/20 00:29 Glucose (Fingerstick) 205 mg/dL (70-99) 213 mg/dL (70-99) Heparin Anti-Xa Act, Unfractionated 0.70 IU/mL (0.30-0.70) 0.47 IU/mL (0.30-0.70) Test 02/13/20 00:33 02/13/20 05:54 02/13/20 06:00 02/13/20 08:00 Glucose (Fingerstick) 206 mg/dL (70-99) 196 mg/dL (70-99) White Blood Count 18.4 x10^3/uL (4.0-11.0) Red Blood Count 3.47 x10^6/uL (4.30-5.70) Hemoglobin 10.3 g/dL (13.0-17.5) Hematocrit 30.6 % (39.0-53.0) Mean Corpuscular Volume 88 fL (79-100) Mean Corpuscular Hemoglobin 30 pg (25-35) Mean Corpuscular Hemoglobin Concent 34 g/dL (31-37) Red Cell Distribution Width 14.8 % (11.5-14.5) Platelet Count 185 x10^3/uL (140-400) Heparin Anti-Xa Act, Unfractionated 0.52 IU/mL (0.30-0.70) O2 Saturation 86 % (92-99) Arterial Blood pH 7.27 (7.35-7.45) Arterial Blood pCO2 at Patient Temp 41 mmHg (35-46) Arterial Blood pO2 at Patient Temp 56 mmHg (75-108) Arterial Blood HCO3 18 mmol/L (21-28) Arterial Blood Base Excess -8 mmol/L (-3-3) FiO2 90 Test 02/13/20 08:26 Glucose (Fingerstick) 196 mg/dL (70-99) Laboratory Tests Test 02/12/20 17:07 02/12/20 18:05 02/12/20 21:09 02/13/20 00:29 Glucose (Fingerstick) 205 mg/dL (70-99) 213 mg/dL (70-99) Heparin Anti-Xa Act, Unfractionated 0.70 IU/mL (0.30-0.70) 0.47 IU/mL (0.30-0.70) Test 02/13/20 00:33 02/13/20 05:54 02/13/20 06:00 02/13/20 08:00 Glucose (Fingerstick) 206 mg/dL (70-99) 196 mg/dL (70-99) White Blood Count 18.4 x10^3/uL (4.0-11.0) Red Blood Count 3.47 x10^6/uL (4.30-5.70) Hemoglobin 10.3 g/dL (13.0-17.5) Hematocrit 30.6 % (39.0-53.0) Mean Corpuscular Volume 88 fL (79-100) Mean Corpuscular Hemoglobin 30 pg (25-35) Mean Corpuscular Hemoglobin Concent 34 g/dL (31-37) Red Cell Distribution Width 14.8 % (11.5-14.5) Platelet Count 185 x10^3/uL (140-400) Heparin Anti-Xa Act, Unfractionated 0.52 IU/mL (0.30-0.70) O2 Saturation 86 % (92-99) Arterial Blood pH 7.27 (7.35-7.45) Arterial Blood pCO2 at Patient Temp 41 mmHg (35-46) Arterial Blood pO2 at Patient Temp 56 mmHg (75-108) Arterial Blood HCO3 18 mmol/L (21-28) Arterial Blood Base Excess -8 mmol/L (-3-3) FiO2 90 Test 02/13/20 08:26 Glucose (Fingerstick) 196 mg/dL (70-99) Microbiology 02/10/20 Urine Culture - Final, Complete 02/02/20 Blood Culture - Final, Complete NO GROWTH AFTER 5 DAYS Medications Current Medications Sodium Chloride 1,000 ml @ 1,000 mls/hr 1X ONCE IV Last administered on 02/02/20at 16:48; Start 02/02/20 at 15:45; Stop 02/02/20 at 16:44; Status DC Etomidate (Amidate) 20 mg 1X ONCE IV Last administered on 02/02/20at 15:54; Start 02/02/20 at 15:45; Stop 02/02/20 at 15:52; Status DC Rocuronium [place] (Zemuron) 50 mg 1X ONCE IV Last administered on 02/02/20at 15:55; Start 02/02/20 at 15:45; Stop 02/02/20 at 15:52; Status DC Propofol 100 ml @ 0 mls/hr CONT PRN IV SEE PROTOCOL Last administered on 02/02/20at 16:33; Start 02/02/20 at 15:45; Stop 02/02/20 at 17:44; Status DC Chlorhexidine Gluconate (Peridex) 15 ml BID MM ; Start 02/02/20 at 21:00; Stop 02/02/20 at 17:39; Status DC Fentanyl Citrate (Fentanyl 2ml Vial) 100 mcg 1X ONCE IV Last administered on 02/02/20at 16:34; Start 02/02/20 at 16:15; Stop 02/02/20 at 16:16; Status DC Sodium Chloride 1,000 ml @ 1,000 mls/hr 1X ONCE IV Last administered on 02/02/20at 16:15; Start 02/02/20 at 16:15; Stop 02/02/20 at 17:20; Status DC Aspirin (Aspirin Rectal Supp) 300 mg 1X ONCE [place] Last administered on 02/02/20at 16:35; Start 02/02/20 at 16:15; Stop 02/02/20 at 16:17; Status DC Acetaminophen (Tylenol) 650 mg PRN Q6HRS PRN PO Headaches, Temp > 101.5'; Start 02/02/20 at 16:15 Prochlorperazine Edisylate (Compazine) 5 mg PRN Q6HRS PRN IVP NAUSEA/VOMITING; Start 02/02/20 at 16:15 Prochlorperazine (Compazine) 25 mg PRN Q12HR PRN [place] NAUSEA/VOMITING; Start 02/02/20 at 16:15 Info (Icu Electrolyte Protocol) 1 ea DAILY MC Last administered on 02/09/20at 09:00; Start 02/03/20 at 09:00 Heparin Sodium (Porcine) (Heparin Sodium) 5,000 unit Q8HRS SQ Last administered on 02/04/20at 05:32; Start 02/02/20 at 22:00; Stop 02/04/20 at 14:45; Status DC Sodium Chloride (Normal Saline Flush) 3 ml QSHIFT PRN IV AFTER MEDS AND BLOOD DRAWS; Start 02/02/20 at 16:15 Oxycodone/ Acetaminophen (Percocet 5/325) 1 tab PRN Q4HRS PRN PO MILD PAIN, 1ST CHOICE; Start 02/02/20 at 16:15 Morphine Sulfate (Morphine Sulfate) 2 mg PRN Q1HR PRN IV PAIN; Start 02/02/20 at 16:15; Stop 02/11/20 at 11:37; Status DC Senna/Docusate Sodium (Senna Plus) 1 tab BID PO Last administered on 02/13/20at 08:52; Start 02/02/20 at 21:00 Docusate Sodium (Colace) 100 mg BID PO ; Start 02/02/20 at 21:00; Stop 02/04/20 at 19:30; Status DC Lactulose (Lactulose) 20 gm PRN Q12HR PRN PO CONSTIPATION Last administered on 02/12/20at 17:47; Start 02/02/20 at 16:15 Amlodipine Besylate (Norvasc) 10 mg HS PO Last administered on 02/11/20at 21:28; Start 02/02/20 at 21:00; Stop 02/12/20 at 09:16; Status DC Aspirin (Grover Aspirin) 325 mg DAILY PO Last administered on 02/13/20at 08:52; Start 02/03/20 at 09:00 Atorvastatin Calcium (Lipitor) 20 mg QHS PO Last administered on 02/12/20at 20:34; Start 02/02/20 at 21:00 Acetaminophen/ Butalbital/ Caffeine (Fioricet) 1 tab PRN Q6HRS PRN PO MIGRAINE HEADACHE- 1ST CHOICE; Start 02/02/20 at 16:15 Hydrochlorothiazide (Hydrodiuril) 25 mg DAILY PO Last administered on 02/11/20at 07:53; Start 02/03/20 at 09:00; Stop 02/11/20 at 09:55; Status DC Isosorbide Dinitrate (Isordil) 10 mg TID PO Last administered on 02/10/20at 13:53; Start 02/02/20 at 21:00; Stop 02/10/20 at 15:23; Status DC Lisinopril (Prinivil) 40 mg DAILY PO Last administered on 02/11/20at 07:54; Start 02/03/20 at 09:00; Stop 02/12/20 at 09:16; Status DC Metoprolol Tartrate (Lopressor) 50 mg BID PO Last administered on 02/07/20at 21:21; Start 02/02/20 at 21:00; Stop 02/08/20 at 17:13; Status DC Non-Formulary Medication (Hydrochlorothiazide (Hydrochlorothiazide Tablet)) 25 mg DAILY PO ; Start 02/03/20 at 09:00; Status UNV Non-Formulary Medication (Insulin Aspart (Novolog)) 25 unit TIDWMEALS SQ ; Start 02/02/20 at 17:00; Status UNV Non-Formulary Medication (Insulin Glargine,Hum.rec.anlog (Lantus Solostar)) 80 unit QHS SQ ; Start 02/02/20 at 21:00; Status UNV Non-Formulary Medication (Isosorbide Dinitrate ) 20 mg DAILY PO ; Start 02/03/20 at 09:00; Status UNV Meclizine HCl (Antivert) 25 mg PRN Q6HRS PRN PO NAUSEA- 2ND CHOICE; Start 02/02/20 at 17:45 Metformin HCl (Glucophage) 1,000 mg BIDWMEALS PO Last administered on 02/13/20at 08:53; Start 02/02/20 at 17:00 Ketotifen Fumarate (Zaditor) 1 drop BID OU Last administered on 02/13/20at 08:56; Start 02/02/20 at 21:00 Pantoprazole Sodium (PROTONIX VIAL for IV PUSH) 40 mg DAILYAC IVP Last administered on 02/13/20at 08:52; Start 02/03/20 at 07:30 Ondansetron HCl (Zofran Odt) 4 mg PRN Q8HRS PRN PO NAUSEA/VOMITING, 1ST CHOICE PO; Start 02/02/20 at 17:45 Sumatriptan Succinate (Imitrex) 50 mg PRN BID PRN PO MIGRAINE HEADACHE; Start 02/02/20 at 17:45 Non-Formulary Medication (Terazosin Hcl ) 2 cap QHS PO ; Start 02/02/20 at 21:00; Status UNV Venlafaxine HCl (Effexor) 150 mg BID PO Last administered on 02/13/20at 08:53; Start 02/02/20 at 21:00 Fentanyl Citrate 30 ml @ 0 mls/hr CONT PRN IV SEE PROTOCOL Last administered on 02/06/20at 05:48; Start 02/02/20 at 16:30; Stop 02/06/20 at 10:59; Status DC Propofol 100 ml @ 0 mls/hr CONT PRN IV SEE PROTOCOL Last administered on 02/09/20at 17:03; Start 02/02/20 at 16:30 Fentanyl Citrate (Fentanyl 2ml Vial) 25 mcg PRN Q1HR PRN IV SEE COMMENTS; Start 02/02/20 at 16:30 Fentanyl Citrate (Fentanyl 2ml Vial) 50 mcg PRN Q1HR PRN IV SEE COMMENTS; Start 02/02/20 at 16:30 Chlorhexidine Gluconate (Peridex) 15 ml BID MM Last administered on 02/07/20at 21:20; Start 02/02/20 at 21:00; Stop 02/08/20 at 18:56; Status DC Morphine Sulfate (Morphine Sulfate) 2 mg PRN Q1HR PRN IV SEE COMMENTS.; Start 02/02/20 at 16:30 Morphine Sulfate (Morphine Sulfate) 4 mg PRN Q1HR PRN IV SEE COMMENTS.; Start 02/02/20 at 16:30 Midazolam HCl (Versed) 1 mg PRN Q30MIN PRN IV SEE COMMENTS.; Start 02/02/20 at 16:30 Piperacillin Sod/ Tazobactam Sod 4.5 gm/Sodium Chloride 100 ml @ 200 mls/hr 1X ONCE IV Last administered on 02/02/20at 17:03; Start 02/02/20 at 16:30; Stop 02/02/20 at 16:59; Status DC Azithromycin 250 ml @ 250 mls/hr 1X ONCE IV Last administered on 02/02/20at 17:40; Start 02/02/20 at 16:30; Stop 02/02/20 at 17:34; Status DC Dexamethasone Sodium Phosphate (Decadron) 10 mg 1X ONCE IVP Last administered on 02/02/20at 16:54; Start 02/02/20 at 16:30; Stop 02/02/20 at 16:33; Status DC Midazolam HCl (Versed) 5 mg 1X ONCE IV Last administered on 02/02/20at 16:35; Start 02/02/20 at 16:45; Stop 02/02/20 at 16:46; Status DC Insulin Human Regular (HumuLIN R VIAL) 8 unit 1X ONCE SQ Last administered on 02/02/20at 16:51; Start 02/02/20 at 16:45; Stop 02/02/20 at 16:46; Status DC Sodium Chloride 1,000 ml @ 500 mls/hr Q2H IV Last administered on 02/02/20at 18:33; Start 02/02/20 at 16:36; Stop 02/02/20 at 18:35; Status DC Insulin Human Regular 100 unit/ Sodium Chloride 101 ml @ 0 mls/hr CONT PRN PRN IV PER PROTOCOL Last administered on 02/03/20at 02:08; Start 02/02/20 at 16:45; Stop 02/03/20 at 02:31; Status DC Insulin Human Regular 100 ml @ As Directed STK-MED ONCE IV ; Start 02/02/20 at 16:41; Stop 02/02/20 at 16:41; Status DC Etomidate (Amidate) 20 mg 1X ONCE IV ; Start 02/02/20 at 17:15; Stop 02/02/20 at 17:22; Status DC Rocuronium [place] (Zemuron) 50 mg 1X ONCE IV ; Start 02/02/20 at 17:15; Stop 02/02/20 at 17:34; Status DC Piperacillin Sod/ Tazobactam Sod 3.375 gm/Sodium Chloride 50 ml @ 100 mls/hr Q6HRS IV Last administered on 02/13/20at 05:32; Start 02/03/20 at 00:00 Sodium Chloride 1,000 ml @ 250 mls/hr Q4H IV Last administered on 02/02/20at 18:43; Start 02/02/20 at 18:45; Stop 02/02/20 at 22:40; Status DC Pantoprazole Sodium (PROTONIX VIAL for IV PUSH) 40 mg 1X ONCE IVP Last administered on 02/02/20at 22:47; Start 02/02/20 at 20:15; Stop 02/02/20 at 20:40; Status DC Labetalol HCl (Normodyne Iv Push) 10 mg PRN Q4HRS PRN IVP HYPERTENSION, 2ND CHOICE Last administered on 02/04/20at 05:20; Start 02/02/20 at 20:15; Stop 02/10/20 at 15:23; Status DC Dextrose/Sodium Chloride 1,000 ml @ 250 mls/hr Q4H IV Last administered on 02/03/20at 07:59; Start 02/02/20 at 22:45; Stop 02/03/20 at 11:23; Status DC Insulin Human Regular 100 unit/ Sodium Chloride 101 ml @ 0 mls/hr CONT PRN IV SEE I/O RECORD; Start 02/03/20 at 02:15 Potassium Chloride/Water 100 ml @ 100 mls/hr PRN Q1HR PRN IV SEE COMMENTS; Start 02/03/20 at 05:00 Potassium Chloride/Water 100 ml @ 100 mls/hr Q1H IV Last administered on 02/03/20at 07:58; Start 02/03/20 at 05:00; Stop 02/03/20 at 08:59; Status DC Insulin Glargine (Lantus Syringe) 18 unit BID SQ Last administered on 02/10/20at 08:57; Start 02/03/20 at 09:00; Stop 02/10/20 at 11:00; Status DC Insulin Human Lispro (HumaLOG) 0-9 UNITS Q6HRS SQ Last administered on 02/13/20at 06:09; Start 02/03/20 at 12:00 Dextrose (Dextrose 50%-Water Syringe) 12.5 gm PRN Q15MIN PRN IV SEE COMMENTS; Start 02/03/20 at 06:15 Sodium Chloride 1,000 ml @ 125 mls/hr 1X ONCE IV Last administered on 02/03/20at 12:01; Start 02/03/20 at 11:30; Stop 02/03/20 at 19:29; Status DC Vecuronium [place] (Norcuron Bolus) 10 mg PRN Q6HRS PRN IV SEDATION Last administered on 02/04/20at 12:09; Start 02/04/20 at 07:30; Stop 02/04/20 at 19:30; Status DC Potassium Chloride/Water 100 ml @ 100 mls/hr 1X ONCE IV Last administered on 02/04/20at 10:04; Start 02/04/20 at 10:00; Stop 02/04/20 at 10:59; Status DC Tocilizumab 400 mg/Sodium Chloride 100 ml @ 100 mls/hr 1X ONCE IV Last administered on 02/04/20at 14:53; Start 02/04/20 at 13:00; Stop 02/04/20 at 13:59; Status DC Enoxaparin Sodium (Lovenox 40mg Syringe) 40 mg BID SQ Last administered on 02/11/20at 07:56; Start 02/04/20 at 21:00; Stop 02/11/20 at 16:16; Status DC Sodium Chloride 1,000 ml @ 125 mls/hr Q8H IV Last administered on 02/10/20at 02:10; Start 02/04/20 at 16:00; Stop 02/10/20 at 08:45; Status DC Vecuronium [place] (Norcuron Bolus) 10 mg PRN Q1HR PRN IV SEDATION Last administered on 02/09/20at 12:12; Start 02/04/20 at 19:30 Docusate Sodium (Colace Solution) 100 mg DAILY PO Last administered on 02/13/20at 08:52; Start 02/05/20 at 09:00 Norepinephrine Bitartrate 8 mg/ Dextrose 258 ml @ 15.519 mls/ hr CONT PRN IV PER PROTOCOL Last administered on 02/07/20at 02:51; Start 02/04/20 at 22:30 Potassium Bicarbonate (Potassium Effervescent Tablet) 40 meq 1X ONCE PO Last administered on 02/05/20at 08:26; Start 02/05/20 at 07:45; Stop 02/05/20 at 07:46; Status DC Midazolam HCl 100 mg/Sodium Chloride 100 ml @ 1 mls/hr CONT PRN IV . Last administered on 02/13/20at 01:19; Start 02/05/20 at 10:00 Methylprednisolone Sodium Succinate (SOLU-Medrol 40MG VIAL) 40 mg Q8HRS IV Last administered on 02/13/20at 05:32; Start 02/05/20 at 14:00 Hydralazine HCl (Apresoline Inj) 10 mg PRN Q4HRS PRN IVP ELEVATED BP, SEE COMMENTS Last administered on 02/09/20at 02:15; Start 02/05/20 at 17:00; Stop 02/09/20 at 09:08; Status DC Fentanyl Citrate 55 ml @ 1.98 mls/hr CONT PRN IV SEE PROTOCOL Last administered on 02/12/20at 22:26; Start 02/06/20 at 11:00 Furosemide (Lasix) 20 mg 1X ONCE IVP Last administered on 02/06/20at 14:08; Start 02/06/20 at 14:00; Stop 02/06/20 at 14:01; Status DC Phenylephrine HCl 50 mg/Sodium Chloride 255 ml @ 13.372 mls/ hr CONT PRN IV SEE I/O RECORD Last administered on 02/07/20at 05:51; Start 02/07/20 at 05:45 Furosemide (Lasix) 20 mg 1X ONCE IVP Last administered on 02/07/20at 13:12; Start 02/07/20 at 13:15; Stop 02/07/20 at 13:16; Status DC Nicardipine HCl 50 mg/Sodium Chloride 250 ml @ 25 mls/hr CONT PRN IV SEE I/O RECORD Last administered on 02/12/20at 20:24; Start 02/08/20 at 10:15 Potassium Chloride/Water 100 ml @ 100 mls/hr Q1H IV Last administered on 02/08/20at 18:17; Start 02/08/20 at 16:00; Stop 02/08/20 at 17:59; Status DC Metoprolol Tartrate (Lopressor Vial) 5 mg Q6HRS IVP Last administered on 02/10/20at 11:56; Start 02/08/20 at 18:00; Stop 02/10/20 at 15:23; Status DC Hydralazine HCl (Apresoline Inj) 10 mg PRN Q4HRS PRN IVP ELEVATED BP, SEE COMMENTS Last administered on 02/10/20at 16:31; Start 02/08/20 at 17:15 Lorazepam 40 mg/ Sodium Chloride 270 ml @ 0 mls/hr CONT PRN IV SEE PROTOCOL Last administered on 02/13/20at 08:54; Start 02/09/20 at 09:00 Sodium Bicarbonate (Sodium Bicarb Adult 8.4% Syr) 100 meq 1X ONCE IV Last administered on 02/09/20at 09:18; Start 02/09/20 at 09:00; Stop 02/09/20 at 09:03; Status DC Potassium Chloride/Water 100 ml @ 100 mls/hr 1X ONCE IV Last administered on 02/09/20at 11:35; Start 02/09/20 at 11:00; Stop 02/09/20 at 11:59; Status DC Vecuronium [place] 50 mg/ Miscellaneous 50 ml @ 4.464 mls/ hr CONT PRN IV SEE I/O RECORD Last administered on 02/13/20at 06:10; Start 02/09/20 at 12:15 Albumin Human 250 ml @ 62.5 mls/hr 1X ONCE IV Last administered on 02/10/20at 08:56; Start 02/10/20 at 08:45; Stop 02/10/20 at 12:44; Status DC Sodium Bicarbonate (Sodium Bicarb Adult 8.4% Syr) 100 meq 1X ONCE IV Last administered on 02/10/20at 08:56; Start 02/10/20 at 08:45; Stop 02/10/20 at 08:46; Status DC Furosemide (Lasix) 40 mg 1X ONCE IVP Last administered on 02/10/20at 10:57; Start 02/10/20 at 10:45; Stop 02/10/20 at 10:46; Status DC Insulin Glargine (Lantus Syringe) 24 unit BID SQ Last administered on 02/11/20at 09:52; Start 02/10/20 at 21:00; Stop 02/11/20 at 13:31; Status DC Isosorbide Dinitrate (Isordil) 20 mg TID PO Last administered on 02/11/20at 07:55; Start 02/10/20 at 21:00; Stop 02/11/20 at 09:55; Status DC Labetalol HCl (Normodyne Iv Push) 20 mg PRN Q4HRS PRN IVP HYPERTENSION, 2ND CHOICE; Start 02/10/20 at 15:30; Stop 02/12/20 at 09:16; Status DC Metoprolol Tartrate (Lopressor Vial) 10 mg Q6HRS IVP Last administered on 02/12/20at 05:51; Start 02/10/20 at 18:00; Stop 02/12/20 at 09:16; Status DC Metoprolol Tartrate (Lopressor Vial) 5 mg 1X ONCE IVP Last administered on 02/10/20at 15:46; Start 02/10/20 at 15:30; Stop 02/10/20 at 15:31; Status DC Isosorbide Dinitrate (Isordil) 10 mg 1X ONCE PO Last administered on 02/10/20at 15:44; Start 02/10/20 at 15:30; Stop 02/10/20 at 15:31; Status DC Isosorbide Dinitrate (Isordil) 40 mg Q8HRS PO Last administered on 02/13/20at 05:32; Start 02/11/20 at 14:00 Hydralazine HCl (Apresoline) 50 mg Q8HRS PO Last administered on 02/12/20at 05:52; Start 02/11/20 at 14:00; Stop 02/12/20 at 09:16; Status DC Clonidine HCl (Catapres) 0.1 mg PRN Q1HR PRN PO HYPERTENSION Last administered on 02/11/20at 16:03; Start 02/11/20 at 10:00 Furosemide (Lasix) 40 mg DAILY IVP Last administered on 02/13/20at 08:53; Start 02/11/20 at 11:00 Insulin Glargine (Lantus Syringe) 28 unit BID SQ Last administered on 02/13/20at 08:56; Start 02/11/20 at 21:00 Heparin Sodium/ Dextrose 250 ml @ 16.4 mls/hr CONT PRN IV PER PROTOCOL Last administered on 02/12/20at 13:52; Start 02/11/20 at 16:30 Heparin Sodium (Porcine) (Heparin Sodium) 3,100 unit PRN Q6HRS PRN IV FOR UFH LEVEL LESS THAN 0.2; Start 02/11/20 at 16:30 Heparin Sodium (Porcine) (Heparin Sodium) 1,550 unit PRN Q6HRS PRN IV FOR UFH LEVEL 0.2 - 0.29; Start 02/11/20 at 16:30 Hydralazine HCl (Apresoline) 100 mg Q8HRS PO Last administered on 02/13/20at 05:31; Start 02/12/20 at 10:00 Labetalol HCl (Trandate) 400 mg BID PO Last administered on 02/13/20at 08:52; Start 02/12/20 at 21:00 Furosemide (Lasix) 40 mg 1X ONCE IVP Last administered on 02/12/20at 10:10; Start 02/12/20 at 09:30; Stop 02/12/20 at 09:31; Status DC Active Scripts Active Aspirin 325 Mg Tablet 325 Mg PO DAILY Yqkeaq-Cppqafhl-Myyp 50-325-40 (Butalb/Acetaminophen/Caffeine) 1 Each Tablet 1-2 Tab PO PRN Q4HRS PRN MDD 6 tablets 2 Days Ondansetron Odt (Ondansetron) 4 Mg Tab.rapdis 1 Tab PO PRN Q6-8HRS PRN Temock-Ohiwdfkn-Nxxc 50-325-40 (Butalb/Acetaminophen/Caffeine) 1 Each Tablet 1 Each PO Q6HRS PRN Reported Venlafaxine Hcl Er (Venlafaxine Hcl) 150 Mg Tab.er.24 1 Tab PO BID Novolog (Insulin Aspart) 100 Unit/1 Ml Cartridge 25 Unit SQ TIDWMEALS Metformin Hcl 1,000 Mg Tablet 1,000 Mg PO BIDWMEALS Zofran (Ondansetron Hcl) 4 Mg Tablet 1 Tab PO Q6HRS Terazosin Hcl 2 Mg Capsule 2 Cap PO QHS Lantus Solostar (Insulin Glargine,Hum.rec.anlog) 100 Unit/1 Ml Insuln.pen 80 Unit SQ QHS Metoprolol Tartrate 50 Mg Tablet 1 Tab PO BID Omeprazole 20 Mg Capsule.dr 20 Mg PO BID Lisinopril 40 Mg Tablet 1 Tab PO DAILY Imitrex (Sumatriptan Succinate) 50 Mg Tablet 50 Mg PO PRN BID PRN Hydrochlorothiazide Tablet (Hydrochlorothiazide) 12.5 Mg Tablet 25 Mg PO DAILY Meclizine Hcl 25 Mg Tablet 25 Mg PO PRN TID PRN 90 Days Patanol (Olopatadine Hcl) 5 Ml Drops 1 Drop EACHEYE BID Atorvastatin Calcium 20 Mg Tablet 1 Tab PO DAILY Isosorbide Mononitrate 20 Mg Tablet 20 Mg PO BID Amlodipine Besylate 10 Mg Tablet 10 Mg PO HS Isosorbide Dinitrate 30 Mg Tablet 20 Mg PO DAILY Hydrochlorothiazide Tablet (Hydrochlorothiazide) 25 Mg Tablet 25 Mg PO DAILY Vitals/I & O Vital Sign - Last 24 Hours 02/12/20 02/12/20 02/12/20 02/12/20 14:00 15:00 15:54 15:54 Pulse 106 104 Resp 26 B/P (MAP) 148/62 (90) 142/60 (87) Pulse Ox 98 99 O2 Delivery Ventilator Ventilator Mechanical Ventilator 02/12/20 02/12/20 02/12/20 02/12/20 16:00 16:14 17:00 18:00 Temp 98.6 98.6 Pulse 101 104 102 Resp B/P (MAP) 139/58 (85) 144/60 (88) 156/66 (96) Pulse Ox 98 99 99 99 O2 Delivery Ventilator Ventilator Ventilator Ventilator 02/12/20 02/12/20 02/12/20 02/12/20 19:00 20:00 20:00 20:00 Pulse 109 110 Resp B/P (MAP) 153/64 (93) 156/64 (94) Pulse Ox 99 99 O2 Delivery Ventilator Ventilator Mechanical Ventilator 02/12/20 02/12/20 02/12/20 02/12/20 20:20 20:34 20:41 20:43 Pulse 110 110 110 B/P (MAP) 148/63 155/65 151/63 Pulse Ox 99 O2 Delivery Ventilator 02/12/20 02/12/20 02/12/20 02/13/20 21:00 22:00 23:00 00:00 Temp 98.9 98.9 Pulse 98 95 93 Resp B/P (MAP) 123/56 (78) 120/56 (77) 120/57 (78) Pulse Ox 98 98 98 O2 Delivery Ventilator Ventilator Ventilator 02/13/20 02/13/20 02/13/20 02/13/20 00:00 00:00 00:20 01:00 Temp 98.8 98.8 Pulse 92 90 Resp B/P (MAP) 126/59 (81) 121/56 (77) Pulse Ox 98 99 97 O2 Delivery Mechanical Ventilator Ventilator Ventilator Ventilator 02/13/20 02/13/20 02/13/20 02/13/20 02:00 03:00 04:00 04:00 Pulse 90 89 90 Resp B/P (MAP) 128/61 (83) 132/60 (84) 142/62 (88) Pulse Ox 98 98 98 O2 Delivery Ventilator Ventilator Ventilator Mechanical Ventilator 02/13/20 02/13/20 02/13/20 02/13/20 04:00 04:35 05:00 05:31 Temp 98.8 98.8 Pulse 90 89 Resp B/P (MAP) 141/62 (88) 148/62 Pulse Ox 99 99 O2 Delivery Ventilator Ventilator 02/13/20 02/13/20 02/13/20/27/20 05:32 06:00 07:00 07:30 Pulse 89 87 88 Resp B/P (MAP) 148/64 140/60 (86) 144/61 (88) Pulse Ox 98 99 98 O2 Delivery Ventilator Ventilator Ventilator 02/13/20 02/13/20 02/13/20 02/13/20 08:00 08:00 08:00 08:52 Temp 97.6 97.6 Pulse 90 90 B/P (MAP) 175/66 (102) 175/66 Pulse Ox 98 O2 Delivery Ventilator Mechanical Ventilator 02/13/20 02/13/20 02/13/20 02/13/20 09:00 10:00 11:00 11:41 Pulse 88 87 83 Resp B/P (MAP) 132/55 (80) 127/56 (79) 140/50 (80) Pulse Ox 95 94 96 94 O2 Delivery Ventilator Ventilator Ventilator Ventilator 02/13/20 13:00 Pulse 76 Resp B/P (MAP) 140/59 (86) Pulse Ox 96 O2 Delivery Ventilator Intake and Output 02/12/20 02/12/20 02/13/20 15:00 23:00 07:00 Intake Total 450 ml 2509.03 ml 1447.3 ml Output Total 520 ml 465 ml 425 ml Balance -70 ml 2044.03 ml 1022.3 ml JADEN PEÑALOZA MD Feb 13, 2020 13:58
[2020-02-13] MEDS: ATORVASTATIN CALCIUM 20 MG TABLET PO SCH (21:01)
[2020-02-14] VITALS (24 sets, daily range): BP systolic 142–192; BP diastolic 57–76
[2020-02-14] MEDS: LORazepam 40 MG in IV NORMAL SALINE 250ML 250 ML IV PRN ×3 (00:40→15:06)
[2020-02-14] MEDS: HEPARIN 25,000UTS/250ML PREMIX 250 ML IV PRN (00:42)
[2020-02-14] MEDS: MIDAZOLAM HCL 100 MG in IV NORMAL SALINE 100ML 100 ML IV PRN ×2 (01:04→23:29)
[2020-02-14] MEDS: fentaNYL HIGH DOSE PCA 55 ML IV PRN (01:45)
[2020-02-14] MEDS: ISOSORBIDE DINITRATE 10 MG TABLET. PO SCH ×3 (05:16→21:57)
[2020-02-14] MEDS: methylPREDNISolone SOD SUCC PF 40 MG/ML VIAL. IV SCH ×3 (05:16→21:58)
[2020-02-14] MEDS: PIPERACILLIN/TAZOBACTAM 3.375 GM in IV NORMAL SALINE 50ML 50 ML IV SCH ×3 (05:17→17:31)
[2020-02-14] MEDS: INSULIN LISPRO 300 UNITS/3 ML VIAL. SQ SCH ×4 (05:41→17:15)
[2020-02-14 06:05] LABS: BASO # 0.1 x10^3/uL (0.0-0.2); BASO % 0 % (0-3); EOS # 0.2 x10^3/uL (0.0-0.7); EOS % 1 % (0-3); HEMATOCRIT 32.5 % (39.0-53.0); HEMOGLOBIN 10.9 g/dL (13.0-17.5); LYMPH # 1.3 x10^3/uL (1.0-4.8); LYMPH % 7 % (24-48); MEAN CORPUSCULAR HEMOGLOBIN 30 pg (25-35); MEAN CORPUSCULAR HGB CONC 33 g/dL (31-37); MEAN CORPUSCULAR VOLUME 88 fL (79-100); MONO # 1.7 x10^3/uL (0.0-1.1); MONO % 9 % (0-9); NEUT % 83 % (31-73); PLATELET COUNT 188 x10^3/uL (140-400); RED BLOOD COUNT 3.68 x10^6/uL (4.30-5.70); RED CELL DISTRIBUTION WIDTH 14.9 % (11.5-14.5); WHITE BLOOD COUNT 19.3 x10^3/uL (4.0-11.0)
[2020-02-14] MEDS: ASPIRIN 325 MG TABLET PO SCH (08:17)
[2020-02-14] MEDS: metFORMIN 500 MG TABLET PO SCH ×3 (08:17→17:31)
[2020-02-14] MEDS: PANTOPRAZOLE IV PUSH 40 MG VIAL. IVP SCH (08:17)
[2020-02-14 08:18] LABS: BASE EXCESS ABG -8 mmol/L (-3-3); HCO3 ABG 19 mmol/L (21-28); PCO2 ABG 46 mmHg (35-46); PO2 ABG 52 mmHg (75-108); SAT O2 ABG 83 % (92-99)
[2020-02-14] MEDS: SENNOSIDES/DOCUSATE 8.6/50MG TABLET. PO SCH ×2 (08:18→19:17)
[2020-02-14] MEDS: FUROSEMIDE 40 MG/4 ML VIAL. IVP SCH (08:18)
[2020-02-14] MEDS: VENLAFAXINE 75 MG TABLET. PO SCH ×2 (08:18→21:56)
[2020-02-14] MEDS: LABETALOL HCL 200 MG TABLET PO SCH ×2 (08:18→21:58)
[2020-02-14] MEDS: DOCUSATE 100 MG/10 ML SOLUTION. PO SCH (08:19)
[2020-02-14] MEDS: INSULIN GLARGINE SYRINGE. SQ SCH ×2 (08:22→20:33)
[2020-02-14] MEDS: cloNIDine HCL 0.1 MG TABLET PO PRN (08:25)
[2020-02-14 08:47] LABS: FIO2 ABG 100
[2020-02-14] MEDS: ELECTROLYTE (ICU) PROTOCOL. MC SCH (09:00)
[2020-02-14] MEDS: KETOTIFEN FUMARATE 0.025% OPHTH SOLUTION BOTTLE. OU SCH ×2 (09:00→21:56)
[2020-02-14 09:13] LABS: CALCIUM 7.6 mg/dL (8.5-10.1); CREATININE 2.7 mg/dL (0.7-1.3); GFR 30.8; MAGNESIUM 2.4 mg/dL (1.8-2.4); POTASSIUM 4.7 mmol/L (3.5-5.1)
--- NOTE | 2020-02-14 09:29 | PDOC ---
PULMONARY PROGRESS NOTES Subjective Currently A/C mode -- 18 of PEEP 100% FiO2-- sedated with versed, Fent, and VEC gtt for paralysis cardene gtt for HTN remains critical ill Vitals Vital Signs Date Time Temp Pulse Resp B/P (MAP) Pulse Ox O2 Delivery O2 Flow Rate FiO2 02/14/20 08:25 85 184/71 02/14/20 06:00 28 96 Ventilator 02/14/20 04:00 97.0 97.0 Comments ros unable to obtain sedated on vent Visual exam performed due to COVID-19 pandemic Patient appears to be comfortable in sync with the ventilator, no significant Labs Laboratory Tests Test 02/12/20 11:34 02/12/20 12:00 02/12/20 17:07 02/12/20 18:05 Glucose (Fingerstick) 226 mg/dL (70-99) 205 mg/dL (70-99) Heparin Anti-Xa Act, Unfractionated 1.03 IU/mL (0.30-0.70) 0.70 IU/mL (0.30-0.70) Test 02/12/20 21:09 02/13/20 00:29 02/13/20 00:33 02/13/20 05:54 Glucose (Fingerstick) 213 mg/dL (70-99) 206 mg/dL (70-99) 196 mg/dL (70-99) Heparin Anti-Xa Act, Unfractionated 0.47 IU/mL (0.30-0.70) Test 02/13/20 06:00 02/13/20 08:00 02/13/20 08:26 02/13/20 13:59 White Blood Count 18.4 x10^3/uL (4.0-11.0) Red Blood Count 3.47 x10^6/uL (4.30-5.70) Hemoglobin 10.3 g/dL (13.0-17.5) Hematocrit 30.6 % (39.0-53.0) Mean Corpuscular Volume 88 fL (79-100) Mean Corpuscular Hemoglobin 30 pg (25-35) Mean Corpuscular Hemoglobin Concent 34 g/dL (31-37) Red Cell Distribution Width 14.8 % (11.5-14.5) Platelet Count 185 x10^3/uL (140-400) Heparin Anti-Xa Act, Unfractionated 0.52 IU/mL (0.30-0.70) O2 Saturation 86 % (92-99) Arterial Blood pH 7.27 (7.35-7.45) Arterial Blood pCO2 at Patient Temp 41 mmHg (35-46) Arterial Blood pO2 at Patient Temp 56 mmHg (75-108) Arterial Blood HCO3 18 mmol/L (21-28) Arterial Blood Base Excess -8 mmol/L (-3-3) FiO2 90 Glucose (Fingerstick) 196 mg/dL (70-99) 203 mg/dL (70-99) Test 02/13/20 18:12 02/13/20 23:42 02/14/20 02:00 02/14/20 05:21 Glucose (Fingerstick) 167 mg/dL (70-99) 147 mg/dL (70-99) 101 mg/dL (70-99) Heparin Anti-Xa Act, Unfractionated 1.01 IU/mL (0.30-0.70) Test 02/14/20 05:30 02/14/20 08:00 02/14/20 08:50 White Blood Count 19.3 x10^3/uL (4.0-11.0) Red Blood Count 3.68 x10^6/uL (4.30-5.70) Hemoglobin 10.9 g/dL (13.0-17.5) Hematocrit 32.5 % (39.0-53.0) Mean Corpuscular Volume 88 fL (79-100) Mean Corpuscular Hemoglobin 30 pg (25-35) Mean Corpuscular Hemoglobin Concent 33 g/dL (31-37) Red Cell Distribution Width 14.9 % (11.5-14.5) Platelet Count 188 x10^3/uL (140-400) Neutrophils (%) (Auto) 83 % (31-73) Lymphocytes (%) (Auto) 7 % (24-48) Monocytes (%) (Auto) 9 % (0-9) Eosinophils (%) (Auto) 1 % (0-3) Basophils (%) (Auto) 0 % (0-3) Neutrophils # (Auto) 16.0 x10^3/uL (1.8-7.7) Lymphocytes # (Auto) 1.3 x10^3/uL (1.0-4.8) Monocytes # (Auto) 1.7 x10^3/uL (0.0-1.1) Eosinophils # (Auto) 0.2 x10^3/uL (0.0-0.7) Basophils # (Auto) 0.1 x10^3/uL (0.0-0.2) O2 Saturation 83 % (92-99) Arterial Blood pH 7.24 (7.35-7.45) Arterial Blood pCO2 at Patient Temp 46 mmHg (35-46) Arterial Blood pO2 at Patient Temp 52 mmHg (75-108) Arterial Blood HCO3 19 mmol/L (21-28) Arterial Blood Base Excess -8 mmol/L (-3-3) FiO2 100 Sodium Level 142 mmol/L (136-145) Potassium Level 4.7 mmol/L (3.5-5.1) Chloride Level 106 mmol/L (98-107) Carbon Dioxide Level 22 mmol/L (21-32) Anion Gap 14 (6-14) Blood Urea Nitrogen 100 mg/dL (8-26) Creatinine 2.7 mg/dL (0.7-1.3) Estimated GFR (Cockcroft-Gault) 30.8 Glucose Level 125 mg/dL (70-99) Calcium Level 7.6 mg/dL (8.5-10.1) Magnesium Level 2.4 mg/dL (1.8-2.4) Laboratory Tests Test 02/13/20 13:59 02/13/20 18:12 02/13/20 23:42 02/14/20 02:00 Glucose (Fingerstick) 203 mg/dL (70-99) 167 mg/dL (70-99) 147 mg/dL (70-99) Heparin Anti-Xa Act, Unfractionated 1.01 IU/mL (0.30-0.70) Test 02/14/20 05:21 02/14/20 05:30 02/14/20 08:00 02/14/20 08:50 Glucose (Fingerstick) 101 mg/dL (70-99) White Blood Count 19.3 x10^3/uL (4.0-11.0) Red Blood Count 3.68 x10^6/uL (4.30-5.70) Hemoglobin 10.9 g/dL (13.0-17.5) Hematocrit 32.5 % (39.0-53.0) Mean Corpuscular Volume 88 fL (79-100) Mean Corpuscular Hemoglobin 30 pg (25-35) Mean Corpuscular Hemoglobin Concent 33 g/dL (31-37) Red Cell Distribution Width 14.9 % (11.5-14.5) Platelet Count 188 x10^3/uL (140-400) Neutrophils (%) (Auto) 83 % (31-73) Lymphocytes (%) (Auto) 7 % (24-48) Monocytes (%) (Auto) 9 % (0-9) Eosinophils (%) (Auto) 1 % (0-3) Basophils (%) (Auto) 0 % (0-3) Neutrophils # (Auto) 16.0 x10^3/uL (1.8-7.7) Lymphocytes # (Auto) 1.3 x10^3/uL (1.0-4.8) Monocytes # (Auto) 1.7 x10^3/uL (0.0-1.1) Eosinophils # (Auto) 0.2 x10^3/uL (0.0-0.7) Basophils # (Auto) 0.1 x10^3/uL (0.0-0.2) O2 Saturation 83 % (92-99) Arterial Blood pH 7.24 (7.35-7.45) Arterial Blood pCO2 at Patient Temp 46 mmHg (35-46) Arterial Blood pO2 at Patient Temp 52 mmHg (75-108) Arterial Blood HCO3 19 mmol/L (21-28) Arterial Blood Base Excess -8 mmol/L (-3-3) FiO2 100 Sodium Level 142 mmol/L (136-145) Potassium Level 4.7 mmol/L (3.5-5.1) Chloride Level 106 mmol/L (98-107) Carbon Dioxide Level 22 mmol/L (21-32) Anion Gap 14 (6-14) Blood Urea Nitrogen 100 mg/dL (8-26) Creatinine 2.7 mg/dL (0.7-1.3) Estimated GFR (Cockcroft-Gault) 30.8 Glucose Level 125 mg/dL (70-99) Calcium Level 7.6 mg/dL (8.5-10.1) Magnesium Level 2.4 mg/dL (1.8-2.4) Medications Active Scripts Medications Dose Route/Sig Max Daily Dose Days Date Category Aspirin 325 Mg Tablet 325 Mg PO DAILY 03/20/19 Rx Venlafaxine Hcl Er (Venlafaxine Hcl) 150 Mg Tab.er.24 1 Tab PO BID 03/18/19 Reported Novolog (Insulin Aspart) 100 Unit/1 Ml Cartridge 25 Unit SQ TIDWMEALS 03/18/19 Reported Metformin Hcl 1,000 Mg Tablet 1,000 Mg PO BIDWMEALS 03/18/19 Reported Zofran (Ondansetron Hcl) 4 Mg Tablet 1 Tab PO Q6HRS 03/18/19 Reported Terazosin Hcl 2 Mg Capsule 2 Cap PO QHS 03/18/19 Reported Lantus Solostar (Insulin Glargine,Hum.rec.anlog) 100 Unit/1 Ml Insuln.pen 80 Unit SQ QHS 03/18/19 Reported Metoprolol Tartrate 50 Mg Tablet 1 Tab PO BID 03/18/19 Reported Omeprazole 20 Mg Capsule.dr 20 Mg PO BID 03/18/19 Reported Lisinopril 40 Mg Tablet 1 Tab PO DAILY 03/18/19 Reported Qnrwbq-Xfsntngo-Xpnq 50-325-40 (Butalb/Acetaminophen/Caffeine) 1 Each Tablet 1-2 Tab PO PRN Q4HRS PRN MDD 6 tablets 2 07/30/18 Rx Imitrex (Sumatriptan Succinate) 50 Mg Tablet 50 Mg PO PRN BID PRN 01/15/15 Reported Hydrochlorothiazide Tablet (Hydrochlorothiazide) 12.5 Mg Tablet 25 Mg PO DAILY 01/15/15 Reported Meclizine Hcl 25 Mg Tablet 25 Mg PO PRN TID PRN 90 01/15/15 Reported Patanol (Olopatadine Hcl) 5 Ml Drops 1 Drop EACHEYE BID 01/11/15 Reported Atorvastatin Calcium 20 Mg Tablet 1 Tab PO DAILY 01/11/15 Reported Isosorbide Mononitrate 20 Mg Tablet 20 Mg PO BID 08/22/13 Reported Amlodipine Besylate 10 Mg Tablet 10 Mg PO HS 08/22/13 Reported Isosorbide Dinitrate 30 Mg Tablet 20 Mg PO DAILY 07/15/19 Reported Hydrochlorothiazide Tablet (Hydrochlorothiazide) 25 Mg Tablet 25 Mg PO DAILY 07/15/19 Reported Ondansetron Odt (Ondansetron) 4 Mg Tab.rapdis 1 Tab PO PRN Q6-8HRS PRN 01/31/19 Rx Dhrxwh-Pksfbneh-Sdpv 50-325-40 (Butalb/Acetaminophen/Caffeine) 1 Each Tablet 1 Each PO Q6HRS PRN 01/31/19 Rx Comments CXR: IMPRESSION: 1. Bilateral airspace disease, not significantly changed. 2. Stable position of tubes and lines.. Impression . 1. Acute hypoxic respiratory failure secondary to COVID-19 pneumonia and ARDS 2. COVID-19 sepsis. 3. Abnormal chest x-ray 4. 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 5. Diabetic ketoacidosis, now anion gap closed and being monitored by PCP.BS better 6. Hypernatremia, s/p IV fluids. resolved 7. Hypertension/ cardene 8. Possible acute pulmonary emboli Plan . Continue current ventilator support A/C mode PEEP and 18, and FI02 100%, ABG reviewed, no changes Cont. heparin gtt for presumptive PE Broad-spectrum antibiotics PRN Lasix continue cardene for HTN Status post convalescent plasma status post Tocilizumab on 02/03/2020 FULL code, will discuss will family --- family considering DNR D/W RN and RT Total cumulative critical care time of 30 minutes, reviewing data, chest x-ray, and labs. KIMBERLY LOPEZ MD Feb 14, 2020 09:29
--- NOTE | 2020-02-14 11:20 | PDOC ---
PROGRESS NOTES Chief Complaint Chief Complaint IMPRESSION Toxic and metabolic encephalopathy Sepsis with pulmonary focus most likely Suspect gram negative organism pneumonia POSITIVE COVID 19 infection On heparin drip due to suspected PE, will discuss with wardrobe image consultant possibility of stopping erip in light of his multiple bleeding sites including ET tube and nose. 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 Diabetes mellitus type 2 insulin requiring Severe anion gap metabolic acidosis resolved Plan: isolation cont ICU VENT SUPPORT AC mode 100%FIO2/ 10 PEEP fluid resuscitation D/C IV NS 02/09 DKA protocol Broad spectrum antibiotics for pneumonic process POS COVID 19 infection supportive measures vent management, will consult pulmonology for assistance. further recommendations based on clinical course DVT prophylaxis: heparin cardiology consult cxr 02/06 worse I>>>O will give low dose lasix s/p convalescent plasma. s/p Tocilizumab 02/03 titrate off cardene and monitor BP trend. CHK IONIZED CA++ VTE Prophylaxis Ordered VTE Prophylaxis Devices: No VTE Pharmacological Prophylaxi: Yes History of Present Illness History of Present Illness 02/10 Suspect gram negative organism pneumonia worsening hypoxia AC mode 100%FIO2/ 9 PEEP poor prognosis, son considering DNR status, family discussing 02/11 No acute events reported overnight, case discussed with nursing staff patient in no acute distress, continues to be critically ill and vent requirements are quite significant. Prognosis is quite guarded, all concerns addressed to the best of my abilities during my visit 02/12 No acute events reported overnight, case discussed with nursing staff patient in no acute distress no complaints during my visit, no recent changes and unfortunately he is not tolerating changes in position little less pronating. Still requiring quite a ventilatory support 02/13 Patient continues to be critically ill, platelets noted still not half of what the were upon admission nevertheless in light of his drop will check for heparin antibodies. On heparin drip for suspected PE but discussed with wardrobe image consultant discontinuing this in light of his active bleeding, renal function continues to deteriorate prognosis very guarded at best Justicifation of Admission Dx: Justicifation of Admission Dx: Justifications for Admission: Justification of Admission Dx: Yes Sepsis: Altered Mental Status Vitals Vitals Vital Signs Date Time Temp Pulse Resp B/P (MAP) Pulse Ox O2 Delivery O2 Flow Rate FiO2 02/14/20 08:25 85 184/71 02/14/20 08:00 91 Ventilator 02/14/20 06:00 28 02/14/20 04:00 97.0 97.0 Physical Exam Physical Exam SEDATED ON VENT visual exam done due to COVID pandemia EXTREMITIES: Without any cyanosis. NEUROLOGIC: Sedated PSYCHIATRIC: uanble to obtain due to acute process . SKIN: No ulcerations General: Other (sedated ) Extremities: No edema Skin: No significant lesion Labs LABS Laboratory Tests Test 02/13/20 13:59 02/13/20 18:12 02/13/20 23:42 02/14/20 02:00 Glucose (Fingerstick) 203 mg/dL (70-99) 167 mg/dL (70-99) 147 mg/dL (70-99) Heparin Anti-Xa Act, Unfractionated 1.01 IU/mL (0.30-0.70) Test 02/14/20 05:21 02/14/20 05:30 02/14/20 08:00 02/14/20 08:50 Glucose (Fingerstick) 101 mg/dL (70-99) White Blood Count 19.3 x10^3/uL (4.0-11.0) Red Blood Count 3.68 x10^6/uL (4.30-5.70) Hemoglobin 10.9 g/dL (13.0-17.5) Hematocrit 32.5 % (39.0-53.0) Mean Corpuscular Volume 88 fL (79-100) Mean Corpuscular Hemoglobin 30 pg (25-35) Mean Corpuscular Hemoglobin Concent 33 g/dL (31-37) Red Cell Distribution Width 14.9 % (11.5-14.5) Platelet Count 188 x10^3/uL (140-400) Neutrophils (%) (Auto) 83 % (31-73) Lymphocytes (%) (Auto) 7 % (24-48) Monocytes (%) (Auto) 9 % (0-9) Eosinophils (%) (Auto) 1 % (0-3) Basophils (%) (Auto) 0 % (0-3) Neutrophils # (Auto) 16.0 x10^3/uL (1.8-7.7) Lymphocytes # (Auto) 1.3 x10^3/uL (1.0-4.8) Monocytes # (Auto) 1.7 x10^3/uL (0.0-1.1) Eosinophils # (Auto) 0.2 x10^3/uL (0.0-0.7) Basophils # (Auto) 0.1 x10^3/uL (0.0-0.2) O2 Saturation 83 % (92-99) Arterial Blood pH 7.24 (7.35-7.45) Arterial Blood pCO2 at Patient Temp 46 mmHg (35-46) Arterial Blood pO2 at Patient Temp 52 mmHg (75-108) Arterial Blood HCO3 19 mmol/L (21-28) Arterial Blood Base Excess -8 mmol/L (-3-3) FiO2 100 Heparin Anti-Xa Act, Unfractionated 0.87 IU/mL (0.30-0.70) Sodium Level 142 mmol/L (136-145) Potassium Level 4.7 mmol/L (3.5-5.1) Chloride Level 106 mmol/L (98-107) Carbon Dioxide Level 22 mmol/L (21-32) Anion Gap 14 (6-14) Blood Urea Nitrogen 100 mg/dL (8-26) Creatinine 2.7 mg/dL (0.7-1.3) Estimated GFR (Cockcroft-Gault) 30.8 Glucose Level 125 mg/dL (70-99) Calcium Level 7.6 mg/dL (8.5-10.1) Magnesium Level 2.4 mg/dL (1.8-2.4) Assessment and Plan Assessmemt and Plan Problems Medical Problems: (1) Acute metabolic encephalopathy Status: Acute (2) Acute renal insufficiency Status: Acute (3) DKA (diabetic ketoacidoses) Status: Acute (4) Pneumonia Status: Acute (5) Respiratory failure with hypoxia Status: Acute (6) Suspected 2019 novel coronavirus infection Status: Acute Comment Review of Relevant I have reviewed the following items myra (where applicable) has been applied. Labs Laboratory Tests Test 02/12/20 11:34 02/12/20 12:00 02/12/20 17:07 02/12/20 18:05 Glucose (Fingerstick) 226 mg/dL (70-99) 205 mg/dL (70-99) Heparin Anti-Xa Act, Unfractionated 1.03 IU/mL (0.30-0.70) 0.70 IU/mL (0.30-0.70) Test 02/12/20 21:09 02/13/20 00:29 02/13/20 00:33 02/13/20 05:54 Glucose (Fingerstick) 213 mg/dL (70-99) 206 mg/dL (70-99) 196 mg/dL (70-99) Heparin Anti-Xa Act, Unfractionated 0.47 IU/mL (0.30-0.70) Test 02/13/20 06:00 02/13/20 08:00 02/13/20 08:26 02/13/20 13:59 White Blood Count 18.4 x10^3/uL (4.0-11.0) Red Blood Count 3.47 x10^6/uL (4.30-5.70) Hemoglobin 10.3 g/dL (13.0-17.5) Hematocrit 30.6 % (39.0-53.0) Mean Corpuscular Volume 88 fL (79-100) Mean Corpuscular Hemoglobin 30 pg (25-35) Mean Corpuscular Hemoglobin Concent 34 g/dL (31-37) Red Cell Distribution Width 14.8 % (11.5-14.5) Platelet Count 185 x10^3/uL (140-400) Heparin Anti-Xa Act, Unfractionated 0.52 IU/mL (0.30-0.70) O2 Saturation 86 % (92-99) Arterial Blood pH 7.27 (7.35-7.45) Arterial Blood pCO2 at Patient Temp 41 mmHg (35-46) Arterial Blood pO2 at Patient Temp 56 mmHg (75-108) Arterial Blood HCO3 18 mmol/L (21-28) Arterial Blood Base Excess -8 mmol/L (-3-3) FiO2 90 Glucose (Fingerstick) 196 mg/dL (70-99) 203 mg/dL (70-99) Test 02/13/20 18:12 02/13/20 23:42 6/28/20 02:00 02/14/20 05:21 Glucose (Fingerstick) 167 mg/dL (70-99) 147 mg/dL (70-99) 101 mg/dL (70-99) Heparin Anti-Xa Act, Unfractionated 1.01 IU/mL (0.30-0.70) Test 02/14/20 05:30 02/14/20 08:00 02/14/20 08:50 White Blood Count 19.3 x10^3/uL (4.0-11.0) Red Blood Count 3.68 x10^6/uL (4.30-5.70) Hemoglobin 10.9 g/dL (13.0-17.5) Hematocrit 32.5 % (39.0-53.0) Mean Corpuscular Volume 88 fL (79-100) Mean Corpuscular Hemoglobin 30 pg (25-35) Mean Corpuscular Hemoglobin Concent 33 g/dL (31-37) Red Cell Distribution Width 14.9 % (11.5-14.5) Platelet Count 188 x10^3/uL (140-400) Neutrophils (%) (Auto) 83 % (31-73) Lymphocytes (%) (Auto) 7 % (24-48) Monocytes (%) (Auto) 9 % (0-9) Eosinophils (%) (Auto) 1 % (0-3) Basophils (%) (Auto) 0 % (0-3) Neutrophils # (Auto) 16.0 x10^3/uL (1.8-7.7) Lymphocytes # (Auto) 1.3 x10^3/uL (1.0-4.8) Monocytes # (Auto) 1.7 x10^3/uL (0.0-1.1) Eosinophils # (Auto) 0.2 x10^3/uL (0.0-0.7) Basophils # (Auto) 0.1 x10^3/uL (0.0-0.2) O2 Saturation 83 % (92-99) Arterial Blood pH 7.24 (7.35-7.45) Arterial Blood pCO2 at Patient Temp 46 mmHg (35-46) Arterial Blood pO2 at Patient Temp 52 mmHg (75-108) Arterial Blood HCO3 19 mmol/L (21-28) Arterial Blood Base Excess -8 mmol/L (-3-3) FiO2 100 Heparin Anti-Xa Act, Unfractionated 0.87 IU/mL (0.30-0.70) Sodium Level 142 mmol/L (136-145) Potassium Level 4.7 mmol/L (3.5-5.1) Chloride Level 106 mmol/L (98-107) Carbon Dioxide Level 22 mmol/L (21-32) Anion Gap 14 (6-14) Blood Urea Nitrogen 100 mg/dL (8-26) Creatinine 2.7 mg/dL (0.7-1.3) Estimated GFR (Cockcroft-Gault) 30.8 Glucose Level 125 mg/dL (70-99) Calcium Level 7.6 mg/dL (8.5-10.1) Magnesium Level 2.4 mg/dL (1.8-2.4) Laboratory Tests Test 02/13/20 13:59 02/13/20 18:12 02/13/20 23:42 02/14/20 02:00 Glucose (Fingerstick) 203 mg/dL (70-99) 167 mg/dL (70-99) 147 mg/dL (70-99) Heparin Anti-Xa Act, Unfractionated 1.01 IU/mL (0.30-0.70) Test 02/14/20 05:21 02/14/20 05:30 02/14/20 08:00 02/14/20 08:50 Glucose (Fingerstick) 101 mg/dL (70-99) White Blood Count 19.3 x10^3/uL (4.0-11.0) Red Blood Count 3.68 x10^6/uL (4.30-5.70) Hemoglobin 10.9 g/dL (13.0-17.5) Hematocrit 32.5 % (39.0-53.0) Mean Corpuscular Volume 88 fL (79-100) Mean Corpuscular Hemoglobin 30 pg (25-35) Mean Corpuscular Hemoglobin Concent 33 g/dL (31-37) Red Cell Distribution Width 14.9 % (11.5-14.5) Platelet Count 188 x10^3/uL (140-400) Neutrophils (%) (Auto) 83 % (31-73) Lymphocytes (%) (Auto) 7 % (24-48) Monocytes (%) (Auto) 9 % (0-9) Eosinophils (%) (Auto) 1 % (0-3) Basophils (%) (Auto) 0 % (0-3) Neutrophils # (Auto) 16.0 x10^3/uL (1.8-7.7) Lymphocytes # (Auto) 1.3 x10^3/uL (1.0-4.8) Monocytes # (Auto) 1.7 x10^3/uL (0.0-1.1) Eosinophils # (Auto) 0.2 x10^3/uL (0.0-0.7) Basophils # (Auto) 0.1 x10^3/uL (0.0-0.2) O2 Saturation 83 % (92-99) Arterial Blood pH 7.24 (7.35-7.45) Arterial Blood pCO2 at Patient Temp 46 mmHg (35-46) Arterial Blood pO2 at Patient Temp 52 mmHg (75-108) Arterial Blood HCO3 19 mmol/L (21-28) Arterial Blood Base Excess -8 mmol/L (-3-3) FiO2 100 Heparin Anti-Xa Act, Unfractionated 0.87 IU/mL (0.30-0.70) Sodium Level 142 mmol/L (136-145) Potassium Level 4.7 mmol/L (3.5-5.1) Chloride Level 106 mmol/L (98-107) Carbon Dioxide Level 22 mmol/L (21-32) Anion Gap 14 (6-14) Blood Urea Nitrogen 100 mg/dL (8-26) Creatinine 2.7 mg/dL (0.7-1.3) Estimated GFR (Cockcroft-Gault) 30.8 Glucose Level 125 mg/dL (70-99) Calcium Level 7.6 mg/dL (8.5-10.1) Magnesium Level 2.4 mg/dL (1.8-2.4) Microbiology 02/10/20 Urine Culture - Final, Complete 02/02/20 Blood Culture - Final, Complete NO GROWTH AFTER 5 DAYS Medications Current Medications Sodium Chloride 1,000 ml @ 1,000 mls/hr 1X ONCE IV Last administered on 02/02/20at 16:48; Start 02/02/20 at 15:45; Stop 02/02/20 at 16:44; Status DC Etomidate (Amidate) 20 mg 1X ONCE IV Last administered on 02/02/20at 15:54; Start 02/02/20 at 15:45; Stop 02/02/20 at 15:52; Status DC Rocuronium [place] (Zemuron) 50 mg 1X ONCE IV Last administered on 02/02/20at 15:55; Start 02/02/20 at 15:45; Stop 02/02/20 at 15:52; Status DC Propofol 100 ml @ 0 mls/hr CONT PRN IV SEE PROTOCOL Last administered on 02/02/20at 16:33; Start 02/02/20 at 15:45; Stop 02/02/20 at 17:44; Status DC Chlorhexidine Gluconate (Peridex) 15 ml BID MM ; Start 02/02/20 at 21:00; Stop 02/02/20 at 17:39; Status DC Fentanyl Citrate (Fentanyl 2ml Vial) 100 mcg 1X ONCE IV Last administered on 02/02/20at 16:34; Start 02/02/20 at 16:15; Stop 02/02/20 at 16:16; Status DC Sodium Chloride 1,000 ml @ 1,000 mls/hr 1X ONCE IV Last administered on 01/17 02/05at 16:15; Start 02/02/20 at 16:15; Stop 02/02/20 at 17:20; Status DC Aspirin (Aspirin Rectal Supp) 300 mg 1X ONCE CO Last administered on 02/02/20at 16:35; Start 02/02/20 at 16:15; Stop 02/02/20 at 16:17; Status DC Acetaminophen (Tylenol) 650 mg PRN Q6HRS PRN PO Headaches, Temp > 101.5'; Start 02/02/20 at 16:15 Prochlorperazine Edisylate (Compazine) 5 mg PRN Q6HRS PRN IVP NAUSEA/VOMITING; Start 02/02/20 at 16:15 Prochlorperazine (Compazine) 25 mg PRN Q12HR PRN CO NAUSEA/VOMITING; Start 02/02/20 at 16:15 Info (Icu Electrolyte Protocol) 1 ea DAILY MC Last administered on 02/09/20at 09:00; Start 02/03/20 at 09:00 Heparin Sodium (Porcine) (Heparin Sodium) 5,000 unit Q8HRS SQ Last administered on 02/04/20at 05:32; Start 02/02/20 at 22:00; Stop 02/04/20 at 14:45; Status DC Sodium Chloride (Normal Saline Flush) 3 ml QSHIFT PRN IV AFTER MEDS AND BLOOD DRAWS; Start 02/02/20 at 16:15 Oxycodone/ Acetaminophen (Percocet 5/325) 1 tab PRN Q4HRS PRN PO MILD PAIN, 1ST CHOICE; Start 02/02/20 at 16:15 Morphine Sulfate (Morphine Sulfate) 2 mg PRN Q1HR PRN IV PAIN; Start 02/02/20 at 16:15; Stop 02/11/20 at 11:37; Status DC Senna/Docusate Sodium (Senna Plus) 1 tab BID PO Last administered on 02/14/20at 08:18; Start 02/02/20 at 21:00 Docusate Sodium (Colace) 100 mg BID PO ; Start 02/02/20 at 21:00; Stop 02/04/20 at 19:30; Status DC Lactulose (Lactulose) 20 gm PRN Q12HR PRN PO CONSTIPATION Last administered on 02/12/20at 17:47; Start 02/02/20 at 16:15 Amlodipine Besylate (Norvasc) 10 mg HS PO Last administered on 02/11/20at 21:28; Start 02/02/20 at 21:00; Stop 02/12/20 at 09:16; Status DC Aspirin (Grover Aspirin) 325 mg DAILY PO Last administered on 02/14/20at 08:17; Start 02/03/20 at 09:00 Atorvastatin Calcium (Lipitor) 20 mg QHS PO Last administered on 02/13/20at 21: 01; Start 02/02/20 at 21:00 Acetaminophen/ Butalbital/ Caffeine (Fioricet) 1 tab PRN Q6HRS PRN PO MIGRAINE HEADACHE- 1ST CHOICE; Start 02/02/20 at 16:15 Hydrochlorothiazide (Hydrodiuril) 25 mg DAILY PO Last administered on 02/11/20at 07:53; Start 02/03/20 at 09:00; Stop 02/11/20 at 09:55; Status DC Isosorbide Dinitrate (Isordil) 10 mg TID PO Last administered on 02/10/20at 13:53; Start 02/02/20 at 21:00; Stop 02/10/20 at 15:23; Status DC Lisinopril (Prinivil) 40 mg DAILY PO Last administered on 02/11/20at 07:54; Start 02/03/20 at 09:00; Stop 02/12/20 at 09:16; Status DC Metoprolol Tartrate (Lopressor) 50 mg BID PO Last administered on 02/07/20at 21:21; Start 02/02/20 at 21:00; Stop 02/08/20 at 17:13; Status DC Non-Formulary Medication (Hydrochlorothiazide (Hydrochlorothiazide Tablet)) 25 mg DAILY PO ; Start 02/03/20 at 09:00; Status UNV Non-Formulary Medication (Insulin Aspart (Novolog)) 25 unit TIDWMEALS SQ ; Start 02/02/20 at 17:00; Status UNV Non-Formulary Medication (Insulin Glargine,Hum.rec.anlog (Lantus Solostar)) 80 unit QHS SQ ; Start 02/02/20 at 21:00; Status UNV Non-Formulary Medication (Isosorbide Dinitrate ) 20 mg DAILY PO ; Start 02/03/20 at 09:00; Status UNV Meclizine HCl (Antivert) 25 mg PRN Q6HRS PRN PO NAUSEA- 2ND CHOICE; Start 02/01 at 17:45 Metformin HCl (Glucophage) 1,000 mg BIDWMEALS PO Last administered on 02/14/20at 08:17; Start 02/02/20 at 17:00 Ketotifen Fumarate (Zaditor) 1 drop BID OU Last administered on 02/13/20at 21:00; Start 02/02/20 at 21:00 Pantoprazole Sodium (PROTONIX VIAL for IV PUSH) 40 mg DAILYAC IVP Last administered on 02/14/20at 08:17; Start 02/03/20 at 07:30 Ondansetron HCl (Zofran Odt) 4 mg PRN Q8HRS PRN PO NAUSEA/VOMITING, 1ST CHOICE PO; Start 02/02/20 at 17:45 Sumatriptan Succinate (Imitrex) 50 mg PRN BID PRN PO MIGRAINE HEADACHE; Start 02/02/20 at 17:45 Non-Formulary Medication (Terazosin Hcl ) 2 cap QHS PO ; Start 02/02/20 at 21:00; Status UNV Venlafaxine HCl (Effexor) 150 mg BID PO Last administered on 02/14/20at 08:18; Start 02/02/20 at 21:00 Fentanyl Citrate 30 ml @ 0 mls/hr CONT PRN IV SEE PROTOCOL Last administered on 02/06/20at 05:48; Start 02/02/20 at 16:30; Stop 02/06/20 at 10:59; Status DC Propofol 100 ml @ 0 mls/hr CONT PRN IV SEE PROTOCOL Last administered on 02/09/20at 17:03; Start 02/02/20 at 16:30 Fentanyl Citrate (Fentanyl 2ml Vial) 25 mcg PRN Q1HR PRN IV SEE COMMENTS; Start 02/02/20 at 16:30 Fentanyl Citrate (Fentanyl 2ml Vial) 50 mcg PRN Q1HR PRN IV SEE COMMENTS; Start 02/02/20 at 16:30 Chlorhexidine Gluconate (Peridex) 15 ml BID MM Last administered on 02/07/20at 21:20; Start 02/02/20 at 21:00; Stop 02/08/20 at 18:56; Status DC Morphine Sulfate (Morphine Sulfate) 2 mg PRN Q1HR PRN IV SEE COMMENTS.; Start 02/02/20 at 16:30 Morphine Sulfate (Morphine Sulfate) 4 mg PRN Q1HR PRN IV SEE COMMENTS.; Start 02/02/20 at 16:30 Midazolam HCl (Versed) 1 mg PRN Q30MIN PRN IV SEE COMMENTS.; Start 02/02/20 at 16:30 Piperacillin Sod/ Tazobactam Sod 4.5 gm/Sodium Chloride 100 ml @ 200 mls/hr 1X ONCE IV Last administered on 02/02/20at 17:03; Start 02/02/20 at 16:30; Stop 02/02/20 at 16:59; Status DC Azithromycin 250 ml @ 250 mls/hr 1X ONCE IV Last administered on 02/02/20at 17:40; Start 02/02/20 at 16:30; Stop 02/02/20 at 17:34; Status DC Dexamethasone Sodium Phosphate (Decadron) 10 mg 1X ONCE IVP Last administered on 02/02/20at 16:54; Start 02/02/20 at 16:30; Stop 02/02/20 at 16:33; Status DC Midazolam HCl (Versed) 5 mg 1X ONCE IV Last administered on 02/02/20at 16:35; Start 02/02/20 at 16:45; Stop 02/02/20 at 16:46; Status DC Insulin Human Regular (HumuLIN R VIAL) 8 unit 1X ONCE SQ Last administered on 02/02/20at 16:51; Start 02/02/20 at 16:45; Stop 02/02/20 at 16:46; Status DC Sodium Chloride 1,000 ml @ 500 mls/hr Q2H IV Last administered on 02/02/20at 18:33; Start 02/02/20 at 16:36; Stop 02/02/20 at 18:35; Status DC Insulin Human Regular 100 unit/ Sodium Chloride 101 ml @ 0 mls/hr CONT PRN PRN IV PER PROTOCOL Last administered on 02/03/20at 02:08; Start 02/02/20 at 16:45; Stop 02/03/20 at 02:31; Status DC Insulin Human Regular 100 ml @ As Directed STK-MED ONCE IV ; Start 02/02/20 at 16:41; Stop 02/02/20 at 16:41; Status DC Etomidate (Amidate) 20 mg 1X ONCE IV ; Start 02/02/20 at 17:15; Stop 02/02/20 at 17:22; Status DC Rocuronium [place] (Zemuron) 50 mg 1X ONCE IV ; Start 02/02/20 at 17:15; Stop 02/02/20 at 17:34; Status DC Piperacillin Sod/ Tazobactam Sod 3.375 gm/Sodium Chloride 50 ml @ 100 mls/hr Q6HRS IV Last administered on 02/14/20at 05:17; Start 02/03/20 at 00:00 Sodium Chloride 1,000 ml @ 250 mls/hr Q4H IV Last administered on 02/02/20at 18:43; Start 02/02/20 at 18:45; Stop 02/02/20 at 22:40; Status DC Pantoprazole Sodium (PROTONIX VIAL for IV PUSH) 40 mg 1X ONCE IVP Last administered on 02/02/20at 22:47; Start 02/02/20 at 20:15; Stop 02/02/20 at 20:40; Status DC Labetalol HCl (Normodyne Iv Push) 10 mg PRN Q4HRS PRN IVP HYPERTENSION, 2ND CHOICE Last administered on 02/04/20at 05:20; Start 02/02/20 at 20:15; Stop 02/10/20 at 15:23; Status DC Dextrose/Sodium Chloride 1,000 ml @ 250 mls/hr Q4H IV Last administered on at 07:59; Start 02/02/20 at 22:45; Stop 02/03/20 at 11:23; Status DC Insulin Human Regular 100 unit/ Sodium Chloride 101 ml @ 0 mls/hr CONT PRN IV SEE I/O RECORD; Start 02/03/20 at 02:15 Potassium Chloride/Water 100 ml @ 100 mls/hr PRN Q1HR PRN IV SEE COMMENTS; Start 02/03/20 at 05:00 Potassium Chloride/Water 100 ml @ 100 mls/hr Q1H IV Last administered on 02/03/20at 07:58; Start 02/03/20 at 05:00; Stop 02/03/20 at 08:59; Status DC Insulin Glargine (Lantus Syringe) 18 unit BID SQ Last administered on 02/10/20at 08:57; Start 02/03/20 at 09:00; Stop 02/10/20 at 11:00; Status DC Insulin Human Lispro (HumaLOG) 0-9 UNITS Q6HRS SQ Last administered on 02/13/20at 14:17; Start 02/03/20 at 12:00 Dextrose (Dextrose 50%-Water Syringe) 12.5 gm PRN Q15MIN PRN IV SEE COMMENTS; Start 02/03/20 at 06:15 Sodium Chloride 1,000 ml @ 125 mls/hr 1X ONCE IV Last administered on 02/03/20at 12:01; Start 02/03/20 at 11:30; Stop 02/03/20 at 19:29; Status DC Vecuronium [place] (Norcuron Bolus) 10 mg PRN Q6HRS PRN IV SEDATION Last administered on 02/04/20at 12:09; Start 02/04/20 at 07:30; Stop 02/04/20 at 19:30; Status DC Potassium Chloride/Water 100 ml @ 100 mls/hr 1X ONCE IV Last administered on 02/04/20at 10:04; Start 02/04/20 at 10:00; Stop 02/04/20 at 10:59; Status DC Tocilizumab 400 mg/Sodium Chloride 100 ml @ 100 mls/hr 1X ONCE IV Last administered on 02/04/20at 14:53; Start 02/04/20 at 13:00; Stop 02/04/20 at 13:59; Status DC Enoxaparin Sodium (Lovenox 40mg Syringe) 40 mg BID SQ Last administered on 02/11/20at 07:56; Start 02/04/20 at 21:00; Stop 02/11/20 at 16:16; Status DC Sodium Chloride 1,000 ml @ 125 mls/hr Q8H IV Last administered on 02/10/20at 02:10; Start 02/04/20 at 16:00; Stop 02/10/20 at 08:45; Status DC Vecuronium [place] (Norcuron Bolus) 10 mg PRN Q1HR PRN IV SEDATION Last administered on 02/09/20at 12:12; Start 02/04/20 at 19:30 Docusate Sodium (Colace Solution) 100 mg DAILY PO Last administered on 02/13/20at 08:52; Start 02/05/20 at 09:00 Norepinephrine Bitartrate 8 mg/ Dextrose 258 ml @ 15.519 mls/ hr CONT PRN IV PER PROTOCOL Last administered on 02/07/20at 02:51; Start 02/04/20 at 22:30 Potassium Bicarbonate (Potassium Effervescent Tablet) 40 meq 1X ONCE PO Last administered on 02/05/20at 08:26; Start 02/05/20 at 07:45; Stop 02/05/20 at 07: 46; Status DC Midazolam HCl 100 mg/Sodium Chloride 100 ml @ 1 mls/hr CONT PRN IV . Last administered on 02/14/20at 01:04; Start 02/05/20 at 10:00 Methylprednisolone Sodium Succinate (SOLU-Medrol 40MG VIAL) 40 mg Q8HRS IV Last administered on 02/14/20at 05:16; Start 02/05/20 at 14:00 Hydralazine HCl (Apresoline Inj) 10 mg PRN Q4HRS PRN IVP ELEVATED BP, SEE COMMENTS Last administered on 02/09/20at 02:15; Start 02/05/20 at 17:00; Stop 02/09/20 at 09:08; Status DC Fentanyl Citrate 55 ml @ 1.98 mls/hr CONT PRN IV SEE PROTOCOL Last administered on 02/14/20at 01:45; Start 02/06/20 at 11:00 Furosemide (Lasix) 20 mg 1X ONCE IVP Last administered on 02/06/20at 14:08; Start 02/06/20 at 14:00; Stop 02/06/20 at 14:01; Status DC Phenylephrine HCl 50 mg/Sodium Chloride 255 ml @ 13.372 mls/ hr CONT PRN IV SEE I/O RECORD Last administered on 02/07/20at 05:51; Start 02/07/20 at 05:45 Furosemide (Lasix) 20 mg 1X ONCE IVP Last administered on 02/07/20at 13:12; Start 02/07/20 at 13:15; Stop 02/07/20 at 13:16; Status DC Nicardipine HCl 50 mg/Sodium Chloride 250 ml @ 25 mls/hr CONT PRN IV SEE I/O RECORD Last administered on 02/13/20at 15:05; Start 02/08/20 at 10:15 Potassium Chloride/Water 100 ml @ 100 mls/hr Q1H IV Last administered on 02/08/20at 18:17; Start 02/08/20 at 16:00; Stop 02/08/20 at 17:59; Status DC Metoprolol Tartrate (Lopressor Vial) 5 mg Q6HRS IVP Last administered on 02/10/20at 11:56; Start 02/08/20 at 18:00; Stop 02/10/20 at 15:23; Status DC Hydralazine HCl (Apresoline Inj) 10 mg PRN Q4HRS PRN IVP ELEVATED BP, SEE COMMENTS Last administered on 02/10/20at 16:31; Start 02/08/20 at 17:15 Lorazepam 40 mg/ Sodium Chloride 270 ml @ 0 mls/hr CONT PRN IV SEE PROTOCOL Last administered on 02/14/20at 08:12; Start 02/09/20 at 09:00 Sodium Bicarbonate (Sodium Bicarb Adult 8.4% Syr) 100 meq 1X ONCE IV Last administered on 02/09/20at 09:18; Start 02/09/20 at 09:00; Stop 6/23/20 at 09:03; Status DC Potassium Chloride/Water 100 ml @ 100 mls/hr 1X ONCE IV Last administered on 02/09/20at 11:35; Start 02/09/20 at 11:00; Stop 02/09/20 at 11:59; Status DC Vecuronium [place] 50 mg/ Miscellaneous 50 ml @ 4.464 mls/ hr CONT PRN IV SEE I/O RECORD Last administered on 02/13/20at 21:20; Start 02/09/20 at 12:15 Albumin Human 250 ml @ 62.5 mls/hr 1X ONCE IV Last administered on 02/10/20at 08:56; Start 02/10/20 at 08:45; Stop 02/10/20 at 12:44; Status DC Sodium Bicarbonate (Sodium Bicarb Adult 8.4% Syr) 100 meq 1X ONCE IV Last administered on 02/10/20at 08:56; Start 02/10/20 at 08:45; Stop 02/10/20 at 08:46; Status DC Furosemide (Lasix) 40 mg 1X ONCE IVP Last administered on 02/10/20at 10:57; Start 02/10/20 at 10:45; Stop 02/10/20 at 10:46; Status DC Insulin Glargine (Lantus Syringe) 24 unit BID SQ Last administered on 02/11/20at 09:52; Start 02/10/20 at 21:00; Stop 02/11/20 at 13:31; Status DC Isosorbide Dinitrate (Isordil) 20 mg TID PO Last administered on 02/11/20at 07:55; Start 02/10/20 at 21:00; Stop 02/11/20 at 09:55; Status DC Labetalol HCl (Normodyne Iv Push) 20 mg PRN Q4HRS PRN IVP HYPERTENSION, 2ND CHOICE; Start 02/10/20 at 15:30; Stop 02/12/20 at 09:16; Status DC Metoprolol Tartrate (Lopressor Vial) 10 mg Q6HRS IVP Last administered on 02/12/20at 05:51; Start 02/10/20 at 18:00; Stop 02/12/20 at 09:16; Status DC Metoprolol Tartrate (Lopressor Vial) 5 mg 1X ONCE IVP Last administered on 02/10/20at 15:46; Start 02/10/20 at 15:30; Stop 02/10/20 at 15:31; Status DC Isosorbide Dinitrate (Isordil) 10 mg 1X ONCE PO Last administered on 02/10/20at 15:44; Start 02/10/20 at 15:30; Stop 02/10/20 at 15:31; Status DC Isosorbide Dinitrate (Isordil) 40 mg Q8HRS PO Last administered on 02/14/20at 05:16; Start 02/11/20 at 14:00 Hydralazine HCl (Apresoline) 50 mg Q8HRS PO Last administered on 02/12/20at 05:52; Start 02/11/20 at 14:00; Stop 02/12/20 at 09:16; Status DC Clonidine HCl (Catapres) 0.1 mg PRN Q1HR PRN PO HYPERTENSION Last administered on 02/14/20at 08:25; Start 02/11/20 at 10:00 Furosemide (Lasix) 40 mg DAILY IVP Last administered on 02/14/20at 08:18; Start 02/11/20 at 11:00 Insulin Glargine (Lantus Syringe) 28 unit BID SQ Last administered on 02/14/20at 08:22; Start 02/11/20 at 21:00 Heparin Sodium/ Dextrose 250 ml @ 16.4 mls/hr CONT PRN IV PER PROTOCOL Last administered on 02/14/20at 00:42; Start 02/11/20 at 16:30 Heparin Sodium (Porcine) (Heparin Sodium) 3,100 unit PRN Q6HRS PRN IV FOR UFH LEVEL LESS THAN 0.2; Start 02/11/20 at 16:30 Heparin Sodium (Porcine) (Heparin Sodium) 1,550 unit PRN Q6HRS PRN IV FOR UFH LEVEL 0.2 - 0.29; Start 02/11/20 at 16:30 Hydralazine HCl (Apresoline) 100 mg Q8HRS PO Last administered on 02/14/20at 05:15; Start 02/12/20 at 10:00 Labetalol HCl (Trandate) 400 mg BID PO Last administered on 02/14/20at 08:18; Start 02/12/20 at 21:00 Furosemide (Lasix) 40 mg 1X ONCE IVP Last administered on 02/12/20at 10:10; Start 02/12/20 at 09:30; Stop 02/12/20 at 09:31; Status DC Active Scripts Active Aspirin 325 Mg Tablet 325 Mg PO DAILY [id number] 50-325-40 (Butalb/Acetaminophen/Caffeine) 1 Each Tablet 1-2 Tab PO PRN Q4HRS PRN MDD 6 tablets 2 Days Ondansetron Odt (Ondansetron) 4 Mg Tab.rapdis 1 Tab PO PRN Q6-8HRS PRN [id number] 50-325-40 (Butalb/Acetaminophen/Caffeine) 1 Each Tablet 1 Each PO Q6HRS PRN Reported Venlafaxine Hcl Er (Venlafaxine Hcl) 150 Mg Tab.er.24 1 Tab PO BID Novolog (Insulin Aspart) 100 Unit/1 Ml Cartridge 25 Unit SQ TIDWMEALS Metformin Hcl 1,000 Mg Tablet 1,000 Mg PO BIDWMEALS Zofran (Ondansetron Hcl) 4 Mg Tablet 1 Tab PO Q6HRS Terazosin Hcl 2 Mg Capsule 2 Cap PO QHS Lantus Solostar (Insulin Glargine,Hum.rec.anlog) 100 Unit/1 Ml Insuln.pen 80 Unit SQ QHS Metoprolol Tartrate 50 Mg Tablet 1 Tab PO BID Omeprazole 20 Mg Capsule.dr 20 Mg PO BID Lisinopril 40 Mg Tablet 1 Tab PO DAILY Imitrex (Sumatriptan Succinate) 50 Mg Tablet 50 Mg PO PRN BID PRN Hydrochlorothiazide Tablet (Hydrochlorothiazide) 12.5 Mg Tablet 25 Mg PO DAILY Meclizine Hcl 25 Mg Tablet 25 Mg PO PRN TID PRN 90 Days Patanol (Olopatadine Hcl) 5 Ml Drops 1 Drop EACHEYE BID Atorvastatin Calcium 20 Mg Tablet 1 Tab PO DAILY Isosorbide Mononitrate 20 Mg Tablet 20 Mg PO BID Amlodipine Besylate 10 Mg Tablet 10 Mg PO HS Isosorbide Dinitrate 30 Mg Tablet 20 Mg PO DAILY Hydrochlorothiazide Tablet (Hydrochlorothiazide) 25 Mg Tablet 25 Mg PO DAILY Vitals/I & O Vital Sign - Last 24 Hours 6/27/20 6/27/20 6/27/20 6/27/20 11:41 12:00 12:00 12:00 Temp 97.3 97.3 Pulse 82 Resp B/P (MAP) 140/58 (85) Pulse Ox 94 95 O2 Delivery Ventilator Ventilator Mechanical Ventilator 02/13/20 02/13/20 02/13/20 02/13/20 13:00 14:00 14:18 14:18 Pulse 76 78 78 78 Resp 28 28 B/P (MAP) 140/59 (86) 144/61 (88) 144/61 144/61 Pulse Ox 96 97 O2 Delivery Ventilator Ventilator 02/13/20 02/13/20 02/13/20 02/13/20 15:00 15:58 16:00 16:00 Pulse 78 Resp 28 B/P (MAP) 145/61 (89) Pulse Ox 96 96 O2 Delivery Ventilator Ventilator Mechanical Ventilator 02/13/20 02/13/20 02/13/20 02/13/20 16:00 17:00 18:00 19:00 Temp 98.3 98.3 Pulse 80 82 81 81 Resp 28 28 B/P (MAP) 150/60 (90) 169/65 (99) 161/63 (95) 162/65 (97) Pulse Ox 95 97 97 96 O2 Delivery Ventilator Ventilator Ventilator Ventilator 02/13/20 02/13/20 02/13/20 02/13/20 20:00 20:00 20:00 20:10 Temp 97.2 97.2 Pulse 81 Resp 28 B/P (MAP) 165/66 (99) Pulse Ox 96 96 O2 Delivery Mechanical Ventilator Ventilator Ventilator 02/13/20 02/13/20 02/13/20 02/13/20 21:00 21:01 21:01 21:03 Pulse 83 81 82 81 Resp 28 B/P (MAP) 170/67 (101) 165/66 170/69 165/66 Pulse Ox 98 O2 Delivery Ventilator 02/13/20 02/13/20 02/13/20 02/14/20 22:00 23:00 23:59 00:00 Pulse 80 81 Resp 28 28 B/P (MAP) 147/62 (90) 152/62 (92) Pulse Ox 97 97 O2 Delivery Ventilator Ventilator Mechanical Ventilator 02/14/20 02/14/20 02/14/20 02/14/20 00:00 00:53 01:00 01:45 Temp 97.1 97.1 Pulse 79 81 Resp B/P (MAP) 151/64 (93) 160/57 (91) Pulse Ox 98 96 97 97 O2 Delivery Ventilator Ventilator Ventilator Ventilator 02/14/20 02/14/20 02/14/20 02/14/20 02:00 02:15 03:00 04:00 Pulse 80 80 B/P (MAP) 173/65 (101) 174/68 (103) Pulse Ox 98 98 97 O2 Delivery Ventilator Ventilator Ventilator 02/14/20 02/14/20 02/14/20 02/14/20 04:00 04:00 04:49 05:00 Temp 97.0 97.0 Pulse 81 81 Resp B/P (MAP) 172/68 (102) 181/68 (105) Pulse Ox 97 97 97 O2 Delivery Ventilator Mechanical Ventilator Ventilator Ventilator 02/14/20 02/14/20 02/14/20 02/14/20 05:15 05:16 06:00 08:00 Pulse 81 81 82 Resp 28 B/P (MAP) 181/68 181/68 174/65 (101) Pulse Ox 96 O2 Delivery Ventilator 02/14/20 02/14/20 02/14/20 08:00 08:18 08:25 Pulse 84 85 B/P (MAP) 181/69 184/71 Pulse Ox 91 O2 Delivery Ventilator Intake and Output 02/13/20 02/13/20 02/14/20 15:00 23:00 07:00 Intake Total 300 ml 3665 ml 875 ml Output Total 350 ml 350 ml 400 ml Balance -50 ml 3315 ml 475 ml JADEN PEÑALOZA MD Feb 14, 2020 11:20
[2020-02-14] MEDS: VECURONIUM BROMIDE 50 MG in TOTAL VOLUME 50 ML IV PRN (11:57)
--- NOTE | 2020-02-14 13:11 | PDOC ---
PROGRESS NOTES Subjective Subjective Patient seen and evaluated Objective Objective Vital Signs Date Time Temp Pulse Resp B/P (MAP) Pulse Ox O2 Delivery O2 Flow Rate FiO2 02/14/20 08:25 85 184/71 02/14/20 08:00 91 Ventilator 02/14/20 06:00 28 02/14/20 04:00 97.0 97.0 02/11/20 20:29 15.0 Intake and Output 02/14/20 07:00 Intake Total 4840 ml Output Total 1100 ml Balance 3740 ml Intake IV Total 2080 ml Tube Feeding 1760 ml Other 1000 ml Output Urine Total 1100 ml Physical Exam Physical Exam deferred Assessment Assessment Problems Medical Problems: (1) Acute metabolic encephalopathy Status: Acute (2) Acute renal insufficiency Status: Acute (3) DKA (diabetic ketoacidoses) Status: Acute (4) Pneumonia Status: Acute (5) Respiratory failure with hypoxia Status: Acute (6) Suspected 2019 novel coronavirus infection Status: Acute Acute respiratory failure secondary to COVID PNA, intubated/vent. Followed by the pulmonary service. Continue present treatment. Leukocytosis/sepsis. Continuing present medications. CHRISTIANNE; Cr remains elevated Hypertensive urgency; BP stable and controlled. No arrhythmias Hyperlipidemia Prior CVA Acute CHF with possible diastolic dysfunction with ARDS and significant volume repletion. Echo when COVID protocol has been completed Comment Review of Relevant I have reviewed the following items myra (where applicable) has been applied. Labs Laboratory Tests Test 02/12/20 17:07 02/12/20 18:05 02/12/20 21:09 02/13/20 00:29 Glucose (Fingerstick) 205 mg/dL (70-99) 213 mg/dL (70-99) Heparin Anti-Xa Act, Unfractionated 0.70 IU/mL (0.30-0.70) 0.47 IU/mL (0.30-0.70) Test 02/13/20 00:33 02/13/20 05:54 02/13/20 06:00 02/13/20 08:00 Glucose (Fingerstick) 206 mg/dL (70-99) 196 mg/dL (70-99) White Blood Count 18.4 x10^3/uL (4.0-11.0) Red Blood Count 3.47 x10^6/uL (4.30-5.70) Hemoglobin 10.3 g/dL (13.0-17.5) Hematocrit 30.6 % (39.0-53.0) Mean Corpuscular Volume 88 fL (79-100) Mean Corpuscular Hemoglobin 30 pg (25-35) Mean Corpuscular Hemoglobin Concent 34 g/dL (31-37) Red Cell Distribution Width 14.8 % (11.5-14.5) Platelet Count 185 x10^3/uL (140-400) Heparin Anti-Xa Act, Unfractionated 0.52 IU/mL (0.30-0.70) O2 Saturation 86 % (92-99) Arterial Blood pH 7.27 (7.35-7.45) Arterial Blood pCO2 at Patient Temp 41 mmHg (35-46) Arterial Blood pO2 at Patient Temp 56 mmHg (75-108) Arterial Blood HCO3 18 mmol/L (21-28) Arterial Blood Base Excess -8 mmol/L (-3-3) FiO2 90 Test 02/13/20 08:26 02/13/20 13:59 02/13/20 18:12 02/13/20 23:42 Glucose (Fingerstick) 196 mg/dL (70-99) 203 mg/dL (70-99) 167 mg/dL (70-99) 147 mg/dL (70-99) Test 02/14/20 02:00 02/14/20 05:21 02/14/20 05:30 02/14/20 08:00 Heparin Anti-Xa Act, Unfractionated 1.01 IU/mL (0.30-0.70) Glucose (Fingerstick) 101 mg/dL (70-99) White Blood Count 19.3 x10^3/uL (4.0-11.0) Red Blood Count 3.68 x10^6/uL (4.30-5.70) Hemoglobin 10.9 g/dL (13.0-17.5) Hematocrit 32.5 % (39.0-53.0) Mean Corpuscular Volume 88 fL (79-100) Mean Corpuscular Hemoglobin 30 pg (25-35) Mean Corpuscular Hemoglobin Concent 33 g/dL (31-37) Red Cell Distribution Width 14.9 % (11.5-14.5) Platelet Count 188 x10^3/uL (140-400) Neutrophils (%) (Auto) 83 % (31-73) Lymphocytes (%) (Auto) 7 % (24-48) Monocytes (%) (Auto) 9 % (0-9) Eosinophils (%) (Auto) 1 % (0-3) Basophils (%) (Auto) 0 % (0-3) Neutrophils # (Auto) 16.0 x10^3/uL (1.8-7.7) Lymphocytes # (Auto) 1.3 x10^3/uL (1.0-4.8) Monocytes # (Auto) 1.7 x10^3/uL (0.0-1.1) Eosinophils # (Auto) 0.2 x10^3/uL (0.0-0.7) Basophils # (Auto) 0.1 x10^3/uL (0.0-0.2) O2 Saturation 83 % (92-99) Arterial Blood pH 7.24 (7.35-7.45) Arterial Blood pCO2 at Patient Temp 46 mmHg (35-46) Arterial Blood pO2 at Patient Temp 52 mmHg (75-108) Arterial Blood HCO3 19 mmol/L (21-28) Arterial Blood Base Excess -8 mmol/L (-3-3) FiO2 100 Test 02/14/20 08:50 Heparin Anti-Xa Act, Unfractionated 0.87 IU/mL (0.30-0.70) Sodium Level 142 mmol/L (136-145) Potassium Level 4.7 mmol/L (3.5-5.1) Chloride Level 106 mmol/L (98-107) Carbon Dioxide Level 22 mmol/L (21-32) Anion Gap 14 (6-14) Blood Urea Nitrogen 100 mg/dL (8-26) Creatinine 2.7 mg/dL (0.7-1.3) Estimated GFR (Cockcroft-Gault) 30.8 Glucose Level 125 mg/dL (70-99) Calcium Level 7.6 mg/dL (8.5-10.1) Magnesium Level 2.4 mg/dL (1.8-2.4) Laboratory Tests Test 02/13/20 13:59 02/13/20 18:12 02/13/20 23:42 02/14/20 02:00 Glucose (Fingerstick) 203 mg/dL (70-99) 167 mg/dL (70-99) 147 mg/dL (70-99) Heparin Anti-Xa Act, Unfractionated 1.01 IU/mL (0.30-0.70) Test 02/14/20 05:21 02/14/20 05:30 02/14/20 08:00 02/14/20 08:50 Glucose (Fingerstick) 101 mg/dL (70-99) White Blood Count 19.3 x10^3/uL (4.0-11.0) Red Blood Count 3.68 x10^6/uL (4.30-5.70) Hemoglobin 10.9 g/dL (13.0-17.5) Hematocrit 32.5 % (39.0-53.0) Mean Corpuscular Volume 88 fL (79-100) Mean Corpuscular Hemoglobin 30 pg (25-35) Mean Corpuscular Hemoglobin Concent 33 g/dL (31-37) Red Cell Distribution Width 14.9 % (11.5-14.5) Platelet Count 188 x10^3/uL (140-400) Neutrophils (%) (Auto) 83 % (31-73) Lymphocytes (%) (Auto) 7 % (24-48) Monocytes (%) (Auto) 9 % (0-9) Eosinophils (%) (Auto) 1 % (0-3) Basophils (%) (Auto) 0 % (0-3) Neutrophils # (Auto) 16.0 x10^3/uL (1.8-7.7) Lymphocytes # (Auto) 1.3 x10^3/uL (1.0-4.8) Monocytes # (Auto) 1.7 x10^3/uL (0.0-1.1) Eosinophils # (Auto) 0.2 x10^3/uL (0.0-0.7) Basophils # (Auto) 0.1 x10^3/uL (0.0-0.2) O2 Saturation 83 % (92-99) Arterial Blood pH 7.24 (7.35-7.45) Arterial Blood pCO2 at Patient Temp 46 mmHg (35-46) Arterial Blood pO2 at Patient Temp 52 mmHg (75-108) Arterial Blood HCO3 19 mmol/L (21-28) Arterial Blood Base Excess -8 mmol/L (-3-3) FiO2 100 Heparin Anti-Xa Act, Unfractionated 0.87 IU/mL (0.30-0.70) Sodium Level 142 mmol/L (136-145) Potassium Level 4.7 mmol/L (3.5-5.1) Chloride Level 106 mmol/L (98-107) Carbon Dioxide Level 22 mmol/L (21-32) Anion Gap 14 (6-14) Blood Urea Nitrogen 100 mg/dL (8-26) Creatinine 2.7 mg/dL (0.7-1.3) Estimated GFR (Cockcroft-Gault) 30.8 Glucose Level 125 mg/dL (70-99) Calcium Level 7.6 mg/dL (8.5-10.1) Magnesium Level 2.4 mg/dL (1.8-2.4) Microbiology 02/10/20 Urine Culture - Final, Complete 02/02/20 Blood Culture - Final, Complete NO GROWTH AFTER 5 DAYS Medications Current Medications Sodium Chloride 1,000 ml @ 1,000 mls/hr 1X ONCE IV Last administered on 02/02/20at 16:48; Start 02/02/20 at 15:45; Stop 02/02/20 at 16:44; Status DC Etomidate (Amidate) 20 mg 1X ONCE IV Last administered on 02/02/20at 15:54; Start 02/02/20 at 15:45; Stop 02/02/20 at 15:52; Status DC Rocuronium [place] (Zemuron) 50 mg 1X ONCE IV Last administered on 02/02/20at 15:55; Start 02/02/20 at 15:45; Stop 02/02/20 at 15:52; Status DC Propofol 100 ml @ 0 mls/hr CONT PRN IV SEE PROTOCOL Last administered on 02/02/20at 16:33; Start 02/02/20 at 15:45; Stop 02/02/20 at 17:44; Status DC Chlorhexidine Gluconate (Peridex) 15 ml BID MM ; Start 02/02/20 at 21:00; Stop 02/02/20 at 17:39; Status DC Fentanyl Citrate (Fentanyl 2ml Vial) 100 mcg 1X ONCE IV Last administered on 02/02/20at 16:34; Start 02/02/20 at 16:15; Stop 02/02/20 at 16:16; Status DC Sodium Chloride 1,000 ml @ 1,000 mls/hr 1X ONCE IV Last administered on 02/02/20at 16:15; Start 02/02/20 at 16:15; Stop 02/02/20 at 17:20; Status DC Aspirin (Aspirin Rectal Supp) 300 mg 1X ONCE MI Last administered on 02/02/20at 16:35; Start 02/02/20 at 16:15; Stop 02/02/20 at 16:17; Status DC Acetaminophen (Tylenol) 650 mg PRN Q6HRS PRN PO Headaches, Temp > 101.5'; Start 02/02/20 at 16:15 Prochlorperazine Edisylate (Compazine) 5 mg PRN Q6HRS PRN IVP NAUSEA/VOMITING; Start 02/02/20 at 16:15 Prochlorperazine (Compazine) 25 mg PRN Q12HR PRN [place] NAUSEA/VOMITING; Start 02/02/20 at 16:15 Info ([facility]cu Electrolyte Protocol) 1 ea DAILY MC Last administered on 02/09/20at 09:00; Start 02/03/20 at 09:00 Heparin Sodium (Porcine) (Heparin Sodium) 5,000 unit Q8HRS SQ Last administered on 02/04/20at 05:32; Start 02/02/20 at 22:00; Stop 02/04/20 at 14:45; Status DC Sodium Chloride (Normal Saline Flush) 3 ml QSHIFT PRN IV AFTER MEDS AND BLOOD DRAWS; Start 02/02/20 at 16:15 Oxycodone/ Acetaminophen (Percocet 5/325) 1 tab PRN Q4HRS PRN PO MILD PAIN, 1ST CHOICE; Start 02/02/20 at 16:15 Morphine Sulfate (Morphine Sulfate) 2 mg PRN Q1HR PRN IV PAIN; Start 02/02/20 at 16:15; Stop 02/11/20 at 11:37; Status DC Senna/Docusate Sodium (Senna Plus) 1 tab BID PO Last administered on 02/14/20at 08:18; Start 02/02/20 at 21:00 Docusate Sodium (Colace) 100 mg BID PO ; Start 02/02/20 at 21:00; Stop 02/04/20 at 19:30; Status DC Lactulose (Lactulose) 20 gm PRN Q12HR PRN PO CONSTIPATION Last administered on 02/12/20at 17:47; Start 02/02/20 at 16:15 Amlodipine Besylate (Norvasc) 10 mg HS PO Last administered on 02/11/20at 21:28; Start 02/02/20 at 21:00; Stop 02/12/20 at 09:16; Status DC Aspirin (Grover Aspirin) 325 mg DAILY PO Last administered on 02/14/20at 08:17; Start 02/03/20 at 09:00 Atorvastatin Calcium (Lipitor) 20 mg QHS PO Last administered on 02/13/20at 21:01; Start 02/02/20 at 21:00 Acetaminophen/ Butalbital/ Caffeine (Fioricet) 1 tab PRN Q6HRS PRN PO MIGRAINE HEADACHE- 1ST CHOICE; Start 02/02/20 at 16:15 Hydrochlorothiazide (Hydrodiuril) 25 mg DAILY PO Last administered on 02/11/20at 07:53; Start 02/03/20 at 09:00; Stop 02/11/20 at 09:55; Status DC Isosorbide Dinitrate (Isordil) 10 mg TID PO Last administered on 02/10/20at 13:53; Start 02/02/20 at 21:00; Stop 02/10/20 at 15:23; Status DC Lisinopril (Prinivil) 40 mg DAILY PO Last administered on 02/11/20at 07:54; Start 02/03/20 at 09:00; Stop 02/12/20 at 09:16; Status DC Metoprolol Tartrate (Lopressor) 50 mg BID PO Last administered on 02/07/20at 21:21; Start 02/02/20 at 21:00; Stop 02/08/20 at 17:13; Status DC Non-Formulary Medication (Hydrochlorothiazide (Hydrochlorothiazide Tablet)) 25 mg DAILY PO ; Start 02/03/20 at 09:00; Status UNV Non-Formulary Medication (Insulin Aspart (Novolog)) 25 unit TIDWMEALS SQ ; Start 02/02/20 at 17:00; Status UNV Non-Formulary Medication (Insulin Glargine,Hum.rec.anlog (Lantus Solostar)) 80 unit QHS SQ ; Start 02/02/20 at 21:00; Status UNV Non-Formulary Medication (Isosorbide Dinitrate ) 20 mg DAILY PO ; Start 02/03/20 at 09:00; Status UNV Meclizine HCl (Antivert) 25 mg PRN Q6HRS PRN PO NAUSEA- 2ND CHOICE; Start 02/02/20 at 17:45 Metformin HCl (Glucophage) 1,000 mg BIDWMEALS PO Last administered on 02/14/20at 08:17; Start 02/02/20 at 17:00 Ketotifen Fumarate (Zaditor) 1 drop BID OU Last administered on 02/13/20at 21:00; Start 02/02/20 at 21:00 Pantoprazole Sodium (PROTONIX VIAL for IV PUSH) 40 mg DAILYAC IVP Last adminis tered on 02/14/20at 08:17; Start 02/03/20 at 07:30 Ondansetron HCl (Zofran Odt) 4 mg PRN Q8HRS PRN PO NAUSEA/VOMITING, 1ST CHOICE PO; Start 02/02/20 at 17:45 Sumatriptan Succinate (Imitrex) 50 mg PRN BID PRN PO MIGRAINE HEADACHE; Start 02/02/20 at 17:45 Non-Formulary Medication (Terazosin Hcl ) 2 cap QHS PO ; Start 02/02/20 at 21:00; Status UNV Venlafaxine HCl (Effexor) 150 mg BID PO Last administered on 02/14/20at 08:18; Start 02/02/20 at 21:00 Fentanyl Citrate 30 ml @ 0 mls/hr CONT PRN IV SEE PROTOCOL Last administered on 02/06/20at 05:48; Start 02/02/20 at 16:30; Stop 02/06/20 at 10:59; Status DC Propofol 100 ml @ 0 mls/hr CONT PRN IV SEE PROTOCOL Last administered on 02/09/20at 17:03; Start 02/02/20 at 16:30 Fentanyl Citrate (Fentanyl 2ml Vial) 25 mcg PRN Q1HR PRN IV SEE COMMENTS; Start 02/02/20 at 16:30 Fentanyl Citrate (Fentanyl 2ml Vial) 50 mcg PRN Q1HR PRN IV SEE COMMENTS; Start 02/02/20 at 16:30 Chlorhexidine Gluconate (Peridex) 15 ml BID MM Last administered on 02/07/20at 21:20; Start 02/02/20 at 21:00; Stop 02/08/20 at 18:56; Status DC Morphine Sulfate (Morphine Sulfate) 2 mg PRN Q1HR PRN IV SEE COMMENTS.; Start 02/02/20 at 16:30 Morphine Sulfate (Morphine Sulfate) 4 mg PRN Q1HR PRN IV SEE COMMENTS.; Start 02/02/20 at 16:30 Midazolam HCl (Versed) 1 mg PRN Q30MIN PRN IV SEE COMMENTS.; Start 02/02/20 at 16:30 Piperacillin Sod/ Tazobactam Sod 4.5 gm/Sodium Chloride 100 ml @ 200 mls/hr 1X ONCE IV Last administered on 02/02/20at 17:03; Start 02/02/20 at 16:30; Stop 02/02/20 at 16:59; Status DC Azithromycin 250 ml @ 250 mls/hr 1X ONCE IV Last administered on 02/02/20at 17:40; Start 02/02/20 at 16:30; Stop 02/02/20 at 17:34; Status DC Dexamethasone Sodium Phosphate (Decadron) 10 mg 1X ONCE IVP Last administered on 02/02/20at 16:54; Start 02/02/20 at 16:30; Stop 02/02/20 at 16:33; Status DC Midazolam HCl (Versed) 5 mg 1X ONCE IV Last administered on 02/02/20at 16:35; Start 02/02/20 at 16:45; Stop 02/02/20 at 16:46; Status DC Insulin Human Regular (HumuLIN R VIAL) 8 unit 1X ONCE SQ Last administered on 02/02/20at 16:51; Start 02/02/20 at 16:45; Stop 02/02/20 at 16:46; Status DC Sodium Chloride 1,000 ml @ 500 mls/hr Q2H IV Last administered on 02/02/20at 18:33; Start 02/02/20 at 16:36; Stop 02/02/20 at 18:35; Status DC Insulin Human Regular 100 unit/ Sodium Chloride 101 ml @ 0 mls/hr CONT PRN PRN IV PER PROTOCOL Last administered on 02/03/20at 02:08; Start 02/02/20 at 16:45; Stop 02/03/20 at 02:31; Status DC Insulin Human Regular 100 ml @ As Directed STK-MED ONCE IV ; Start 02/02/20 at 16:41; Stop 02/02/20 at 16:41; Status DC Etomidate (Amidate) 20 mg 1X ONCE IV ; Start 02/02/20 at 17:15; Stop 02/02/20 at 17:22; Status DC Rocuronium [place] (Zemuron) 50 mg 1X ONCE IV ; Start 02/02/20 at 17:15; Stop 02/02/20 at 17:34; Status DC Piperacillin Sod/ Tazobactam Sod 3.375 gm/Sodium Chloride 50 ml @ 100 mls/hr Q6HRS IV Last administered on 02/14/20at 11:57; Start 02/03/20 at 00:00 Sodium Chloride 1,000 ml @ 250 mls/hr Q4H IV Last administered on 02/02/20at 18:43; Start 02/02/20 at 18:45; Stop 02/02/20 at 22:40; Status DC Pantoprazole Sodium (PROTONIX VIAL for IV PUSH) 40 mg 1X ONCE IVP Last administered on 02/02/20at 22:47; Start 02/02/20 at 20:15; Stop 02/02/20 at 20:40; Status DC Labetalol HCl (Normodyne Iv Push) 10 mg PRN Q4HRS PRN IVP HYPERTENSION, 2ND CHOICE Last administered on 02/04/20at 05:20; Start 02/02/20 at 20:15; Stop 02/10/20 at 15:23; Status DC Dextrose/Sodium Chloride 1,000 ml @ 250 mls/hr Q4H IV Last administered on 02/03/20at 07:59; Start 02/02/20 at 22:45; Stop 02/03/20 at 11:23; Status DC Insulin Human Regular 100 unit/ Sodium Chloride 101 ml @ 0 mls/hr CONT PRN IV SEE I/O RECORD; Start 02/03/20 at 02:15 Potassium Chloride/Water 100 ml @ 100 mls/hr PRN Q1HR PRN IV SEE COMMENTS; Start 02/03/20 at 05:00 Potassium Chloride/Water 100 ml @ 100 mls/hr Q1H IV Last administered on 02/03/20at 07:58; Start 02/03/20 at 05:00; Stop 02/03/20 at 08:59; Status DC Insulin Glargine (Lantus Syringe) 18 unit BID SQ Last administered on 02/10/20at 08:57; Start 02/03/20 at 09:00; Stop 02/10/20 at 11:00; Status DC Insulin Human Lispro (HumaLOG) 0-9 UNITS Q6HRS SQ Last administered on 02/13/20at 14:17; Start 02/03/20 at 12:00 Dextrose (Dextrose 50%-Water Syringe) 12.5 gm PRN Q15MIN PRN IV SEE COMMENTS; Start 02/03/20 at 06:15 Sodium Chloride 1,000 ml @ 125 mls/hr 1X ONCE IV Last administered on 02/03/20at 12:01; Start 02/03/20 at 11:30; Stop 02/03/20 at 19:29; Status DC Vecuronium [place] (Norcuron Bolus) 10 mg PRN Q6HRS PRN IV SEDATION Last administered on 02/04/20at 12:09; Start 02/04/20 at 07:30; Stop 02/04/20 at 19:30; Status DC Potassium Chloride/Water 100 ml @ 100 mls/hr 1X ONCE IV Last administered on 02/04/20at 10:04; Start 02/04/20 at 10:00; Stop 02/04/20 at 10:59; Status DC Tocilizumab 400 mg/Sodium Chloride 100 ml @ 100 mls/hr 1X ONCE IV Last administered on 02/04/20at 14:53; Start 02/04/20 at 13:00; Stop 02/04/20 at 13:59; Status DC Enoxaparin Sodium (Lovenox 40mg Syringe) 40 mg BID SQ Last administered on 02/11/20at 07:56; Start 02/04/20 at 21:00; Stop 02/11/20 at 16:16; Status DC Sodium Chloride 1,000 ml @ 125 mls/hr Q8H IV Last administered on 02/10/20at 02:10; Start 02/04/20 at 16:00; Stop 02/10/20 at 08:45; Status DC Vecuronium [place] (Norcuron Bolus) 10 mg PRN Q1HR PRN IV SEDATION Last administered on 02/09/20at 12:12; Start 02/04/20 at 19:30 Docusate Sodium (Colace Solution) 100 mg DAILY PO Last administered on 02/13/20at 08:52; Start 02/05/20 at 09:00 Norepinephrine Bitartrate 8 mg/ Dextrose 258 ml @ 15.519 mls/ hr CONT PRN IV PER PROTOCOL Last administered on 02/07/20at 02:51; Start 02/04/20 at 22:30 Potassium Bicarbonate (Potassium Effervescent Tablet) 40 meq 1X ONCE PO Last administered on 02/05/20at 08:26; Start 02/05/20 at 07:45; Stop 02/05/20 at 07:46; Status DC Midazolam HCl 100 mg/Sodium Chloride 100 ml @ 1 mls/hr CONT PRN IV . Last administered on 02/14/20at 01:04; Start 02/05/20 at 10:00 Methylprednisolone Sodium Succinate (SOLU-Medrol 40MG VIAL) 40 mg Q8HRS IV Last administered on 02/14/20at 05:16; Start 02/05/20 at 14:00 Hydralazine HCl (Apresoline Inj) 10 mg PRN Q4HRS PRN IVP ELEVATED BP, SEE COMMENTS Last administered on 02/09/20at 02:15; Start 02/05/20 at 17:00; Stop 02/09/20 at 09:08; Status DC Fentanyl Citrate 55 ml @ 1.98 mls/hr CONT PRN IV SEE PROTOCOL Last administered on 02/14/20at 01:45; Start 02/06/20 at 11:00 Furosemide (Lasix) 20 mg 1X ONCE IVP Last administered on 02/06/20at 14:08; Start 02/06/20 at 14:00; Stop 02/06/20 at 14:01; Status DC Phenylephrine HCl 50 mg/Sodium Chloride 255 ml @ 13.372 mls/ hr CONT PRN IV SEE I/O RECORD Last administered on 02/07/20at 05:51; Start 02/07/20 at 05:45 Furosemide (Lasix) 20 mg 1X ONCE IVP Last administered on 02/07/20at 13:12; Start 02/07/20 at 13:15; Stop 02/07/20 at 13:16; Status DC Nicardipine HCl 50 mg/Sodium Chloride 250 ml @ 25 mls/hr CONT PRN IV SEE I/O RECORD Last administered on 02/13/20at 15:05; Start 02/08/20 at 10:15 Potassium Chloride/Water 100 ml @ 100 mls/hr Q1H IV Last administered on 02/08/20at 18:17; Start 02/08/20 at 16:00; Stop 02/08/20 at 17:59; Status DC Metoprolol Tartrate (Lopressor Vial) 5 mg Q6HRS IVP Last administered on 02/10/20at 11:56; Start 02/08/20 at 18:00; Stop 02/10/20 at 15:23; Status DC Hydralazine HCl (Apresoline Inj) 10 mg PRN Q4HRS PRN IVP ELEVATED BP, SEE COMMENTS Last administered on 02/10/20at 16:31; Start 02/08/20 at 17:15 Lorazepam 40 mg/ Sodium Chloride 270 ml @ 0 mls/hr CONT PRN IV SEE PROTOCOL Last administered on 02/14/20at 08:12; Start 02/09/20 at 09:00 Sodium Bicarbonate (Sodium Bicarb Adult 8.4% Syr) 100 meq 1X ONCE IV Last administered on 02/09/20at 09:18; Start 02/09/20 at 09:00; Stop 02/09/20 at 09:03; Status DC Potassium Chloride/Water 100 ml @ 100 mls/hr 1X ONCE IV Last administered on 02/09/20at 11:35; Start 02/09/20 at 11:00; Stop 02/09/20 at 11:59; Status DC Vecuronium [place] 50 mg/ Miscellaneous 50 ml @ 4.464 mls/ hr CONT PRN IV SEE I/O RECORD Last administered on 02/14/20at 11:57; Start 02/09/20 at 12:15 Albumin Human 250 ml @ 62.5 mls/hr 1X ONCE IV Last administered on 02/10/20at 08:56; Start 02/10/20 at 08:45; Stop 02/10/20 at 12:44; Status DC Sodium Bicarbonate (Sodium Bicarb Adult 8.4% Syr) 100 meq 1X ONCE IV Last administered on 02/10/20at 08:56; Start 02/10/20 at 08:45; Stop 02/10/20 at 08:46; Status DC Furosemide (Lasix) 40 mg 1X ONCE IVP Last administered on 6/24/20at 10:57; Start 02/10/20 at 10:45; Stop 02/10/20 at 10:46; Status DC Insulin Glargine (Lantus Syringe) 24 unit BID SQ Last administered on 02/11/20at 09:52; Start 02/10/20 at 21:00; Stop 02/11/20 at 13:31; Status DC Isosorbide Dinitrate (Isordil) 20 mg TID PO Last administered on 02/11/20at 07:55; Start 02/10/20 at 21:00; Stop 02/11/20 at 09:55; Status DC Labetalol HCl (Normodyne Iv Push) 20 mg PRN Q4HRS PRN IVP HYPERTENSION, 2ND CHOICE; Start 02/10/20 at 15:30; Stop 02/12/20 at 09:16; Status DC Metoprolol Tartrate (Lopressor Vial) 10 mg Q6HRS IVP Last administered on 02/12/20at 05:51; Start 02/10/20 at 18:00; Stop 02/12/20 at 09:16; Status DC Metoprolol Tartrate (Lopressor Vial) 5 mg 1X ONCE IVP Last administered on 02/10/20at 15:46; Start 02/10/20 at 15:30; Stop 02/10/20 at 15:31; Status DC Isosorbide Dinitrate (Isordil) 10 mg 1X ONCE PO Last administered on 02/10/20at 15:44; Start 02/10/20 at 15:30; Stop 02/10/20 at 15:31; Status DC Isosorbide Dinitrate (Isordil) 40 mg Q8HRS PO Last administered on 02/14/20at 05:16; Start 02/11/20 at 14:00 Hydralazine HCl (Apresoline) 50 mg Q8HRS PO Last administered on 02/12/20at 0 5:52; Start 02/11/20 at 14:00; Stop 02/12/20 at 09:16; Status DC Clonidine HCl (Catapres) 0.1 mg PRN Q1HR PRN PO HYPERTENSION Last administered on 02/14/20at 08:25; Start 02/11/20 at 10:00 Furosemide (Lasix) 40 mg DAILY IVP Last administered on 02/14/20at 08:18; Start 02/11/20 at 11:00 Insulin Glargine (Lantus Syringe) 28 unit BID SQ Last administered on 02/14/20at 08:22; Start 02/11/20 at 21:00 Heparin Sodium/ Dextrose 250 ml @ 16.4 mls/hr CONT PRN IV PER PROTOCOL Last administered on 02/14/20at 00:42; Start 02/11/20 at 16:30 Heparin Sodium (Porcine) (Heparin Sodium) 3,100 unit PRN Q6HRS PRN IV FOR UFH LEVEL LESS THAN 0.2; Start 02/11/20 at 16:30 Heparin Sodium (Porcine) (Heparin Sodium) 1,550 unit PRN Q6HRS PRN IV FOR UFH LEVEL 0.2 - 0.29; Start 02/11/20 at 16:30 Hydralazine HCl (Apresoline) 100 mg Q8HRS PO Last administered on 02/14/20at 05:15; Start 02/12/20 at 10:00 Labetalol HCl (Trandate) 400 mg BID PO Last administered on 02/14/20at 08:18; Start 02/12/20 at 21:00 Furosemide (Lasix) 40 mg 1X ONCE IVP Last administered on 02/12/20at 10:10; Start 02/12/20 at 09:30; Stop 02/12/20 at 09:31; Status DC Active Scripts Active Aspirin 325 Mg Tablet 325 Mg PO DAILY Wdymdt-Bkzugxpq-Ktyf 50-325-40 (Butalb/Acetaminophen/Caffeine) 1 Each Tablet 1-2 Tab PO PRN Q4HRS PRN MDD 6 tablets 2 Days Ondansetron Odt (Ondansetron) 4 Mg Tab.rapdis 1 Tab PO PRN Q6-8HRS PRN Rwtbul-Hqddpqvi-Publ 50-325-40 (Butalb/Acetaminophen/Caffeine) 1 Each Tablet 1 Each PO Q6HRS PRN Reported Venlafaxine Hcl Er (Venlafaxine Hcl) 150 Mg Tab.er.24 1 Tab PO BID Novolog (Insulin Aspart) 100 Unit/1 Ml Cartridge 25 Unit SQ TIDWMEALS Metformin Hcl 1,000 Mg Tablet 1,000 Mg PO BIDWMEALS Zofran (Ondansetron Hcl) 4 Mg Tablet 1 Tab PO Q6HRS Terazosin Hcl 2 Mg Capsule 2 Cap PO QHS Lantus Solostar (Insulin Glargine,Hum.rec.anlog) 100 Unit/1 Ml Insuln.pen 80 Unit SQ QHS Metoprolol Tartrate 50 Mg Tablet 1 Tab PO BID Omeprazole 20 Mg Capsule.dr 20 Mg PO BID Lisinopril 40 Mg Tablet 1 Tab PO DAILY Imitrex (Sumatriptan Succinate) 50 Mg Tablet 50 Mg PO PRN BID PRN Hydrochlorothiazide Tablet (Hydrochlorothiazide) 12.5 Mg Tablet 25 Mg PO DAILY Meclizine Hcl 25 Mg Tablet 25 Mg PO PRN TID PRN 90 Days Patanol (Olopatadine Hcl) 5 Ml Drops 1 Drop EACHEYE BID Atorvastatin Calcium 20 Mg Tablet 1 Tab PO DAILY Isosorbide Mononitrate 20 Mg Tablet 20 Mg PO BID Amlodipine Besylate 10 Mg Tablet 10 Mg PO HS Isosorbide Dinitrate 30 Mg Tablet 20 Mg PO DAILY Hydrochlorothiazide Tablet (Hydrochlorothiazide) 25 Mg Tablet 25 Mg PO DAILY Vitals/I & O Vital Sign - Last 24 Hours 02/13/20 02/13/20 02/13/20 02/13/20 14:00 14:18 14:18 15:00 Pulse 78 78 78 78 Resp 28 B/P (MAP) 144/61 (88) 144/61 144/61 145/61 (89) Pulse Ox 97 96 O2 Delivery Ventilator Ventilator 02/13/20 02/13/20 02/13/20 02/13/20 15:58 16:00 16:00 16:00 Temp 98.3 98.3 Pulse 80 28 B/P (MAP) 150/60 (90) Pulse Ox 96 95 O2 Delivery Ventilator Mechanical Ventilator Ventilator 02/13/20 02/13/20 02/13/20 02/13/20 17:00 18:00 19:00 20:00 Pulse 82 81 81 Resp 28 B/P (MAP) 169/65 (99) 161/63 (95) 162/65 (97) Pulse Ox 97 97 96 O2 Delivery Ventilator Ventilator Ventilator Mechanical Ventilator 02/13/20 02/13/20 02/13/20 02/13/20 20:00 20:00 20:10 21:00 Temp 97.2 97.2 Pulse 81 83 Resp 28 B/P (MAP) 165/66 (99) 170/67 (101) Pulse Ox 96 96 98 O2 Delivery Ventilator Ventilator Ventilator 02/13/20 02/13/20 02/13/20 02/13/20 21:01 21:01 21:03 22:00 Pulse 81 82 81 80 Resp 28 B/P (MAP) 165/66 170/69 165/66 147/62 (90) Pulse Ox 97 O2 Delivery Ventilator 02/13/20 02/13/20 02/14/20 02/14/20 23:00 23:59 00:00 00:00 Temp 97.1 97.1 Pulse 81 79 Resp B/P (MAP) 152/62 (92) 151/64 (93) Pulse Ox 97 98 O2 Delivery Ventilator Mechanical Ventilator Ventilator 02/14/20 02/14/20 02/14/20 02/14/20 00:53 01:00 01:45 02:00 Pulse 81 80 Resp B/P (MAP) 160/57 (91) 173/65 (101) Pulse Ox 96 97 97 98 O2 Delivery Ventilator Ventilator Ventilator Ventilator 02/14/20 02/14/20 02/14/20 02/14/20 02:15 03:00 04:00 04:00 Temp 97.0 97.0 Pulse 80 81 Resp B/P (MAP) 174/68 (103) 172/68 (102) Pulse Ox 98 97 97 O2 Delivery Ventilator Ventilator Ventilator 02/14/20 02/14/20 02/14/20 02/14/20 04:00 04:49 05:00 05:15 Pulse 81 81 Resp 28 B/P (MAP) 181/68 (105) 181/68 Pulse Ox 97 97 O2 Delivery Mechanical Ventilator Ventilator Ventilator 02/14/20 02/14/20 02/14/20 02/14/20 05:16 06:00 08:00 08:00 Pulse 81 82 Resp 28 B/P (MAP) 181/68 174/65 (101) Pulse Ox 96 91 O2 Delivery Ventilator Ventilator 02/14/20 02/14/20 08:18 08:25 Pulse 84 85 B/P (MAP) 181/69 184/71 Intake and Output 02/13/20 02/13/20 02/14/20 15:00 23:00 07:00 Intake Total 300 ml 3665 ml 875 ml Output Total 350 ml 350 ml 400 ml Balance -50 ml 3315 ml 475 ml Justicifation of Admission Dx: Justifications for Admission: Justification of Admission Dx: Yes Sepsis: Altered Mental Status IDALMIS PARTIDA MD Feb 14, 2020 13:11
[2020-02-14] MEDS: DEXTROSE 50% 25 GM / 50ML DISP.SYRIN. IV PRN (17:35)
[2020-02-14] MEDS: ATORVASTATIN CALCIUM 20 MG TABLET PO SCH (21:57)
[2020-02-15] VITALS (24 sets, daily range): BP systolic 90–199; BP diastolic 50–76
[2020-02-15] MEDS: DEXTROSE 50% 25 GM / 50ML DISP.SYRIN. IV PRN ×2 (00:03→00:37)
[2020-02-15] MEDS: PIPERACILLIN/TAZOBACTAM 3.375 GM in IV NORMAL SALINE 50ML 50 ML IV SCH ×4 (00:04→18:25)
[2020-02-15] MEDS: LORazepam 40 MG in IV NORMAL SALINE 250ML 250 ML IV PRN ×3 (01:38→23:35)
[2020-02-15] MEDS: hydrALAZINE 20 MG/ML VIAL. IVP PRN (02:05)
[2020-02-15] MEDS ORDERED: IV DEXTROSE 5% - 0.9 % NACL 1,000 ML IV ONE (02:30)
[2020-02-15] MEDS: HEPARIN 25,000UTS/250ML PREMIX 250 ML IV PRN (02:52)
[2020-02-15] MEDS: fentaNYL HIGH DOSE PCA 55 ML IV PRN (03:45)
[2020-02-15 05:02] LABS: HEMATOCRIT 29.5 % (39.0-53.0); HEMOGLOBIN 9.6 g/dL (13.0-17.5); RED BLOOD COUNT 3.32 x10^6/uL (4.30-5.70); RED CELL DISTRIBUTION WIDTH 15.3 % (11.5-14.5); WHITE BLOOD COUNT 26.1 x10^3/uL (4.0-11.0)
[2020-02-15] MEDS: VECURONIUM BROMIDE 50 MG in TOTAL VOLUME 50 ML IV PRN ×2 (05:02→23:35)
[2020-02-15] MEDS: INSULIN LISPRO 300 UNITS/3 ML VIAL. SQ SCH ×4 (06:00→18:00)
[2020-02-15] MEDS: methylPREDNISolone SOD SUCC PF 40 MG/ML VIAL. IV SCH ×3 (06:06→21:36)
[2020-02-15] MEDS: ISOSORBIDE DINITRATE 10 MG TABLET. PO SCH ×3 (06:07→21:35)
[2020-02-15 07:45] LABS: ALBUMIN 1.6 g/dL (3.4-5.0); ALBUMIN/GLOBULIN RATIO 0.6 (1.0-1.7); CALCIUM 6.9 mg/dL (8.5-10.1); CREATININE 2.8 mg/dL (0.7-1.3); GFR 29.5; POTASSIUM 4.9 mmol/L (3.5-5.1); TOTAL BILIRUBIN 0.3 mg/dL (0.2-1.0); TOTAL PROTEIN 4.4 g/dL (6.4-8.2)
[2020-02-15 08:12] LABS: BASE EXCESS ABG -10 mmol/L (-3-3); HCO3 ABG 17 mmol/L (21-28); PCO2 ABG 43 mmHg (35-46); PO2 ABG 57 mmHg (75-108); SAT O2 ABG 84 % (92-99)
[2020-02-15 08:14] LABS: FIO2 ABG 100
[2020-02-15] MEDS: SENNOSIDES/DOCUSATE 8.6/50MG TABLET. PO SCH ×2 (08:22→19:25)
[2020-02-15] MEDS: PANTOPRAZOLE IV PUSH 40 MG VIAL. IVP SCH (08:23)
[2020-02-15] MEDS: DOCUSATE 100 MG/10 ML SOLUTION. PO SCH (08:23)
[2020-02-15] MEDS: FUROSEMIDE 40 MG/4 ML VIAL. IVP SCH (08:23)
[2020-02-15] MEDS: ASPIRIN 325 MG TABLET PO SCH (08:24)
[2020-02-15] MEDS: KETOTIFEN FUMARATE 0.025% OPHTH SOLUTION BOTTLE. OU SCH ×2 (08:24→21:36)
[2020-02-15] MEDS: VENLAFAXINE 75 MG TABLET. PO SCH ×2 (08:24→21:34)
[2020-02-15] MEDS: LABETALOL HCL 200 MG TABLET PO SCH ×2 (08:24→21:34)
[2020-02-15] MEDS: INSULIN GLARGINE SYRINGE. SQ SCH ×2 (09:00→21:38)
[2020-02-15] MEDS: ELECTROLYTE (ICU) PROTOCOL. MC SCH (09:00)
[2020-02-15] MEDS ORDERED: ANTI-COAG MONITOR BY PHARMACY. MC PRN (09:15)
--- NOTE | 2020-02-15 09:23 | PDOC ---
PROGRESS NOTES Chief Complaint Chief Complaint IMPRESSION Toxic and metabolic encephalopathy Sepsis with pulmonary focus most likely Suspect gram negative organism pneumonia POSITIVE COVID 19 infection On heparin drip due to suspected PE, will discuss with data virtualization consultant possibility of stopping erip in light of his multiple bleeding sites including ET tube and nose. 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 Diabetes mellitus type 2 insulin requiring/ DEC LANTUS dosing 02/14 Severe anion gap metabolic acidosis resolved Plan: isolation cont ICU VENT SUPPORT AC mode 100%FIO2/ 10 PEEP fluid resuscitation D/C IV NS 02/09 DKA protocol Broad spectrum antibiotics for pneumonic process POS COVID 19 infection supportive measures vent management, // pulmonology for assistance. DVT prophylaxis: heparin cardiology consult cxr 02/06 worse I>>>O will give low dose lasix s/p convalescent plasma. s/p Tocilizumab 02/03 titrate off cardene and monitor BP trend. CHK IONIZED CA++ The patient was evaluated during the global COVID-19 pandemic, and that diagnosis was suspected/considered upon their initial presentation. Their evaluation, treatment and testing was consistent with current guidelines for patients who present with complaints or symptoms that may be related to COVID- 19. VTE Prophylaxis Ordered VTE Prophylaxis Devices: No VTE Pharmacological Prophylaxi: Yes 36 min cc time History of Present Illness History of Present Illness 02/14 Suspect gram negative organism pneumonia worsening hypoxia AC mode 100%FIO2/ 9 PEEP poor prognosis, son considering DNR status, family discussing 02/11 No acute events reported overnight, case discussed with nursing staff patient in no acute distress, continues to be critically ill and vent requirements are quite significant. Prognosis is quite guarded, all concerns addressed to the best of my abilities during my visit 02/12 No acute events reported overnight, case discussed with nursing staff patient in no acute distress no complaints during my visit, no recent changes and unfortunately he is not tolerating changes in position little less pronating. Still requiring quite a ventilatory support 02/13 Patient continues to be critically ill, platelets noted still not half of what the were upon admission nevertheless in light of his drop will check for heparin antibodies. On heparin drip for suspected PE but discussed with data virtualization consultant discontinuing this in light of his active bleeding, renal function continues to deteriorate prognosis very guarded at best Justicifation of Admission Dx: Justicifation of Admission Dx: Justifications for Admission: Justification of Admission Dx: Yes Sepsis: Altered Mental Status Vitals Vitals Vital Signs Date Time Temp Pulse Resp B/P (MAP) Pulse Ox O2 Delivery O2 Flow Rate FiO2 02/15/20 08:24 83 112/53 02/15/20 07:26 97 Ventilator 02/15/20 06:00 28 02/15/20 04:00 98.1 98.1 Physical Exam Physical Exam SEDATED ON VENT visual exam done due to COVID pandemia EXTREMITIES: Without any cyanosis. NEUROLOGIC: Sedated PSYCHIATRIC: uanble to obtain due to acute process . SKIN: No ulcerations General: Other (sedated ) Extremities: No edema Skin: No significant lesion Labs LABS Single view chest dated 02/13/2020. Comparison made to 02/11/2020. CLINICAL INDICATION: Ventilator dependent. FINDINGS: Single semiupright portable exam performed. Endotracheal tube, nasogastric tube and right internal jugular catheter in place, unchanged. Heart and mediastinal contours are stable. Widespread airspace disease with perihilar consolidation, similar given differences in technique. No pleural effusion. No pneumothorax. IMPRESSION: 1. Bilateral airspace disease, not significantly changed. 2. Stable position of tubes and lines. Electronically signed by: Stephen Huerta MD (02/13/2020 7:19 AM) [id number] DICTATED and SIGNED BY: STEPHEN HUERTA MD Laboratory Tests Test 02/14/20 15:50 02/14/20 17:35 02/14/20 18:03 02/14/20 22:00 Heparin Anti-Xa Act, Unfractionated 0.80 IU/mL (0.30-0.70) 0.37 IU/mL (0.30-0.70) Glucose (Fingerstick) 53 mg/dL (70-99) 106 mg/dL (70-99) Test 02/14/20 23:56 02/15/20 00:36 02/15/20 01:22 02/15/20 04:00 Glucose (Fingerstick) 46 mg/dL (70-99) 64 mg/dL (70-99) 82 mg/dL (70-99) White Blood Count 26.1 x10^3/uL (4.0-11.0) Red Blood Count 3.32 x10^6/uL (4.30-5.70) Hemoglobin 9.6 g/dL (13.0-17.5) Hematocrit 29.5 % (39.0-53.0) Mean Corpuscular Volume 89 fL (79-100) Mean Corpuscular Hemoglobin 29 pg (25-35) Mean Corpuscular Hemoglobin Concent 33 g/dL (31-37) Red Cell Distribution Width 15.3 % (11.5-14.5) Platelet Count 165 x10^3/uL (140-400) Heparin Anti-Xa Act, Unfractionated 0.27 IU/mL (0.30-0.70) Sodium Level 142 mmol/L (136-145) Potassium Level 4.9 mmol/L (3.5-5.1) Chloride Level 109 mmol/L (98-107) Carbon Dioxide Level 19 mmol/L (21-32) Anion Gap 14 (6-14) Blood Urea Nitrogen 107 mg/dL (8-26) Creatinine 2.8 mg/dL (0.7-1.3) Estimated GFR (Cockcroft-Gault) 29.5 BUN/Creatinine Ratio 38 (6-20) Glucose Level 90 mg/dL (70-99) Calcium Level 6.9 mg/dL (8.5-10.1) Total Bilirubin 0.3 mg/dL (0.2-1.0) Aspartate Amino Transf (AST/SGOT) 27 U/L (15-37) Alanine Aminotransferase (ALT/SGPT) 23 U/L (16-63) Alkaline Phosphatase 185 U/L (46-116) Total Protein 4.4 g/dL (6.4-8.2) Albumin 1.6 g/dL (3.4-5.0) Albumin/Globulin Ratio 0.6 (1.0-1.7) Test 02/15/20 06:11 02/15/20 08:09 Glucose (Fingerstick) 91 mg/dL (70-99) O2 Saturation 84 % (92-99) Arterial Blood pH 7.21 (7.35-7.45) Arterial Blood pCO2 at Patient Temp 43 mmHg (35-46) Arterial Blood pO2 at Patient Temp 57 mmHg (75-108) Arterial Blood HCO3 17 mmol/L (21-28) Arterial Blood Base Excess -10 mmol/L (-3-3) FiO2 100 Assessment and Plan Assessmemt and Plan Problems Medical Problems: (1) Acute metabolic encephalopathy Status: Acute (2) Acute renal insufficiency Status: Acute (3) DKA (diabetic ketoacidoses) Status: Acute (4) Pneumonia Status: Acute (5) Respiratory failure with hypoxia Status: Acute (6) Suspected 2019 novel coronavirus infection Status: Acute Comment Review of Relevant I have reviewed the following items myra (where applicable) has been applied. Labs Laboratory Tests Test 02/13/20 13:59 02/13/20 18:12 02/13/20 23:42 02/14/20 02:00 Glucose (Fingerstick) 203 mg/dL (70-99) 167 mg/dL (70-99) 147 mg/dL (70-99) Heparin Anti-Xa Act, Unfractionated 1.01 IU/mL (0.30-0.70) Test 02/14/20 05:21 02/14/20 05:30 02/14/20 08:00 02/14/20 08:50 Glucose (Fingerstick) 101 mg/dL (70-99) White Blood Count 19.3 x10^3/uL (4.0-11.0) Red Blood Count 3.68 x10^6/uL (4.30-5.70) Hemoglobin 10.9 g/dL (13.0-17.5) Hematocrit 32.5 % (39.0-53.0) Mean Corpuscular Volume 88 fL (79-100) Mean Corpuscular Hemoglobin 30 pg (25-35) Mean Corpuscular Hemoglobin Concent 33 g/dL (31-37) Red Cell Distribution Width 14.9 % (11.5-14.5) Platelet Count 188 x10^3/uL (140-400) Neutrophils (%) (Auto) 83 % (31-73) Lymphocytes (%) (Auto) 7 % (24-48) Monocytes (%) (Auto) 9 % (0-9) Eosinophils (%) (Auto) 1 % (0-3) Basophils (%) (Auto) 0 % (0-3) Neutrophils # (Auto) 16.0 x10^3/uL (1.8-7.7) Lymphocytes # (Auto) 1.3 x10^3/uL (1.0-4.8) Monocytes # (Auto) 1.7 x10^3/uL (0.0-1.1) Eosinophils # (Auto) 0.2 x10^3/uL (0.0-0.7) Basophils # (Auto) 0.1 x10^3/uL (0.0-0.2) O2 Saturation 83 % (92-99) Arterial Blood pH 7.24 (7.35-7.45) Arterial Blood pCO2 at Patient Temp 46 mmHg (35-46) Arterial Blood pO2 at Patient Temp 52 mmHg (75-108) Arterial Blood HCO3 19 mmol/L (21-28) Arterial Blood Base Excess -8 mmol/L (-3-3) FiO2 100 Heparin Anti-Xa Act, Unfractionated 0.87 IU/mL (0.30-0.70) Sodium Level 142 mmol/L (136-145) Potassium Level 4.7 mmol/L (3.5-5.1) Chloride Level 106 mmol/L (98-107) Carbon Dioxide Level 22 mmol/L (21-32) Anion Gap 14 (6-14) Blood Urea Nitrogen 100 mg/dL (8-26) Creatinine 2.7 mg/dL (0.7-1.3) Estimated GFR (Cockcroft-Gault) 30.8 Glucose Level 125 mg/dL (70-99) Calcium Level 7.6 mg/dL (8.5-10.1) Magnesium Level 2.4 mg/dL (1.8-2.4) Test 02/14/20 15:50 02/14/20 17:35 02/14/20 18:03 02/14/20 22:00 Heparin Anti-Xa Act, Unfractionated 0.80 IU/mL (0.30-0.70) 0.37 IU/mL (0.30-0.70) Glucose (Fingerstick) 53 mg/dL (70-99) 106 mg/dL (70-99) Test 02/14/20 23:56 02/15/20 00:36 02/15/20 01:22 02/15/20 04:00 Glucose (Fingerstick) 46 mg/dL (70-99) 64 mg/dL (70-99) 82 mg/dL (70-99) White Blood Count 26.1 x10^3/uL (4.0-11.0) Red Blood Count 3.32 x10^6/uL (4.30-5.70) Hemoglobin 9.6 g/dL (13.0-17.5) Hematocrit 29.5 % (39.0-53.0) Mean Corpuscular Volume 89 fL (79-100) Mean Corpuscular Hemoglobin 29 pg (25-35) Mean Corpuscular Hemoglobin Concent 33 g/dL (31-37) Red Cell Distribution Width 15.3 % (11.5-14.5) Platelet Count 165 x10^3/uL (140-400) Heparin Anti-Xa Act, Unfractionated 0.27 IU/mL (0.30-0.70) Sodium Level 142 mmol/L (136-145) Potassium Level 4.9 mmol/L (3.5-5.1) Chloride Level 109 mmol/L (98-107) Carbon Dioxide Level 19 mmol/L (21-32) Anion Gap 14 (6-14) Blood Urea Nitrogen 107 mg/dL (8-26) Creatinine 2.8 mg/dL (0.7-1.3) Estimated GFR (Cockcroft-Gault) 29.5 BUN/Creatinine Ratio 38 (6-20) Glucose Level 90 mg/dL (70-99) Calcium Level 6.9 mg/dL (8.5-10.1) Total Bilirubin 0.3 mg/dL (0.2-1.0) Aspartate Amino Transf (AST/SGOT) 27 U/L (15-37) Alanine Aminotransferase (ALT/SGPT) 23 U/L (16-63) Alkaline Phosphatase 185 U/L (46-116) Total Protein 4.4 g/dL (6.4-8.2) Albumin 1.6 g/dL (3.4-5.0) Albumin/Globulin Ratio 0.6 (1.0-1.7) Test 02/15/20 06:11 02/15/20 08:09 Glucose (Fingerstick) 91 mg/dL (70-99) O2 Saturation 84 % (92-99) Arterial Blood pH 7.21 (7.35-7.45) Arterial Blood pCO2 at Patient Temp 43 mmHg (35-46) Arterial Blood pO2 at Patient Temp 57 mmHg (75-108) Arterial Blood HCO3 17 mmol/L (21-28) Arterial Blood Base Excess -10 mmol/L (-3-3) FiO2 100 Laboratory Tests Test 02/14/20 15:50 02/14/20 17:35 02/14/20 18:03 02/14/20 22:00 Heparin Anti-Xa Act, Unfractionated 0.80 IU/mL (0.30-0.70) 0.37 IU/mL (0.30-0.70) Glucose (Fingerstick) 53 mg/dL (70-99) 106 mg/dL (70-99) Test 02/14/20 23:56 02/15/20 00:36 02/15/20 01:22 02/15/20 04:00 Glucose (Fingerstick) 46 mg/dL (70-99) 64 mg/dL (70-99) 82 mg/dL (70-99) White Blood Count 26.1 x10^3/uL (4.0-11.0) Red Blood Count 3.32 x10^6/uL (4.30-5.70) Hemoglobin 9.6 g/dL (13.0-17.5) Hematocrit 29.5 % (39.0-53.0) Mean Corpuscular Volume 89 fL (79-100) Mean Corpuscular Hemoglobin 29 pg (25-35) Mean Corpuscular Hemoglobin Concent 33 g/dL (31-37) Red Cell Distribution Width 15.3 % (11.5-14.5) Platelet Count 165 x10^3/uL (140-400) Heparin Anti-Xa Act, Unfractionated 0.27 IU/mL (0.30-0.70) Sodium Level 142 mmol/L (136-145) Potassium Level 4.9 mmol/L (3.5-5.1) Chloride Level 109 mmol/L (98-107) Carbon Dioxide Level 19 mmol/L (21-32) Anion Gap 14 (6-14) Blood Urea Nitrogen 107 mg/dL (8-26) Creatinine 2.8 mg/dL (0.7-1.3) Estimated GFR (Cockcroft-Gault) 29.5 BUN/Creatinine Ratio 38 (-20) Glucose Level 90 mg/dL (70-99) Calcium Level 6.9 mg/dL (8.5-10.1) Total Bilirubin 0.3 mg/dL (0.2-1.0) Aspartate Amino Transf (AST/SGOT) 27 U/L (15-37) Alanine Aminotransferase (ALT/SGPT) 23 U/L (16-63) Alkaline Phosphatase 185 U/L (46-116) Total Protein 4.4 g/dL (6.4-8.2) Albumin 1.6 g/dL (3.4-5.0) Albumin/Globulin Ratio 0.6 (1.0-1.7) Test 02/15/20 06:11 02/15/20 08:09 Glucose (Fingerstick) 91 mg/dL (70-99) O2 Saturation 84 % (92-99) Arterial Blood pH 7.21 (7.35-7.45) Arterial Blood pCO2 at Patient Temp 43 mmHg (35-46) Arterial Blood pO2 at Patient Temp 57 mmHg (75-108) Arterial Blood HCO3 17 mmol/L (21-28) Arterial Blood Base Excess -10 mmol/L (-3-3) FiO2 100 Microbiology 02/10/20 Urine Culture - Final, Complete 02/02/20 Blood Culture - Final, Complete NO GROWTH AFTER 5 DAYS Medications Current Medications Sodium Chloride 1,000 ml @ 1,000 mls/hr 1X ONCE IV Last administered on 02/02/20at 16:48; Start 02/02/20 at 15:45; Stop 02/02/20 at 16:44; Status DC Etomidate (Amidate) 20 mg 1X ONCE IV Last administered on 02/02/20at 15:54; Start 02/02/20 at 15:45; Stop 02/02/20 at 15:52; Status DC Rocuronium [place] (Zemuron) 50 mg 1X ONCE IV Last administered on 02/02/20at 15:55; Start 02/02/20 at 15:45; Stop 02/02/20 at 15:52; Status DC Propofol 100 ml @ 0 mls/hr CONT PRN IV SEE PROTOCOL Last administered on 02/02/20at 16:33; Start 02/02/20 at 15:45; Stop 02/02/20 at 17:44; Status DC Chlorhexidine Gluconate (Peridex) 15 ml BID MM ; Start 02/02/20 at 21:00; Stop 02/02/20 at 17:39; Status DC Fentanyl Citrate (Fentanyl 2ml Vial) 100 mcg 1X ONCE IV Last administered on 02/02/20at 16:34; Start 02/02/20 at 16:15; Stop 02/02/20 at 16:16; Status DC Sodium Chloride 1,000 ml @ 1,000 mls/hr 1X ONCE IV Last administered on 02/02/20at 16:15; Start 02/02/20 at 16:15; Stop 02/02/20 at 17:20; Status DC Aspirin (Aspirin Rectal Supp) 300 mg 1X ONCE NH Last administered on 02/02/20at 16:35; Start 02/02/20 at 16:15; Stop 02/02/20 at 16:17; Status DC Acetaminophen (Tylenol) 650 mg PRN Q6HRS PRN PO Headaches, Temp > 101.5'; Start 02/02/20 at 16:15 Prochlorperazine Edisylate (Compazine) 5 mg PRN Q6HRS PRN IVP NAUSEA/VOMITING; Start 02/02/20 at 16:15 Prochlorperazine (Compazine) 25 mg PRN Q12HR PRN NH NAUSEA/VOMITING; Start 02/02/20 at 16:15 Info (Icu Electrolyte Protocol) 1 ea DAILY MC Last administered on 02/09/20at 09:00; Start 02/03/20 at 09:00 Heparin Sodium (Porcine) (Heparin Sodium) 5,000 unit Q8HRS SQ Last administered on 02/04/20at 05:32; Start 02/02/20 at 22:00; Stop 02/04/20 at 14:45; Status DC Sodium Chloride (Normal Saline Flush) 3 ml QSHIFT PRN IV AFTER MEDS AND BLOOD DRAWS; Start 02/02/20 at 16:15 Oxycodone/ Acetaminophen (Percocet 5/325) 1 tab PRN Q4HRS PRN PO MILD PAIN, 1ST CHOICE; Start 02/02/20 at 16:15 Morphine Sulfate (Morphine Sulfate) 2 mg PRN Q1HR PRN IV PAIN; Start 02/02/20 at 16:15; Stop 02/11/20 at 11:37; Status DC Senna/Docusate Sodium (Senna Plus) 1 tab BID PO Last administered on 02/15/20at 08:22; Start 02/02/20 at 21:00 Docusate Sodium (Colace) 100 mg BID PO ; Start 02/02/20 at 21:00; Stop 02/04/20 at 19:30; Status DC Lactulose (Lactulose) 20 gm PRN Q12HR PRN PO CONSTIPATION Last administered on 02/12/20at 17:47; Start 02/02/20 at 16:15 Amlodipine Besylate (Norvasc) 10 mg HS PO Last administered on 02/11/20at 21:28; Start 02/02/20 at 21:00; Stop 02/12/20 at 09:16; Status DC Aspirin (Grover Aspirin) 325 mg DAILY PO Last administered on 02/15/20at 08:24; Start 02/03/20 at 09:00 Atorvastatin Calcium (Lipitor) 20 mg QHS PO Last administered on 02/14/20at 21:57; Start 02/02/20 at 21:00 Acetaminophen/ Butalbital/ Caffeine (Fioricet) 1 tab PRN Q6HRS PRN PO MIGRAINE HEADACHE- 1ST CHOICE; Start 02/02/20 at 16:15 Hydrochlorothiazide (Hydrodiuril) 25 mg DAILY PO Last administered on 02/11/20at 07:53; Start 02/03/20 at 09:00; Stop 02/11/20 at 09:55; Status DC Isosorbide Dinitrate (Isordil) 10 mg TID PO Last administered on 02/10/20at 13:53; Start 02/02/20 at 21:00; Stop 02/10/20 at 15:23; Status DC Lisinopril (Prinivil) 40 mg DAILY PO Last administered on 02/11/20at 07:54; Start 02/03/20 at 09:00; Stop 02/12/20 at 09:16; Status DC Metoprolol Tartrate (Lopressor) 50 mg BID PO Last administered on 02/07/20at 21:21; Start 02/02/20 at 21:00; Stop 02/08/20 at 17:13; Status DC Non-Formulary Medication (Hydrochlorothiazide (Hydrochlorothiazide Tablet)) 25 mg DAILY PO ; Start 02/03/20 at 09:00; Status UNV Non-Formulary Medication (Insulin Aspart (Novolog)) 25 unit TIDWMEALS SQ ; Start 02/02/20 at 17:00; Status UNV Non-Formulary Medication (Insulin Glargine,Hum.rec.anlog (Lantus Solostar)) 80 unit QHS SQ ; Start 02/02/20 at 21:00; Status UNV Non-Formulary Medication (Isosorbide Dinitrate ) 20 mg DAILY PO ; Start 02/03/20 at 09:00; Status UNV Meclizine HCl (Antivert) 25 mg PRN Q6HRS PRN PO NAUSEA- 2ND CHOICE; Start 02/02/20 at 17:45 Metformin HCl (Glucophage) 1,000 mg BIDWMEALS PO Last administered on 02/14/20at 08:17; Start 02/02/20 at 17:00; Stop 02/15/20 at 02:23; Status DC Ketotifen Fumarate (Zaditor) 1 drop BID OU Last administered on 02/15/20at 08:24; Start 02/02/20 at 21:00 Pantoprazole Sodium (PROTONIX VIAL for IV PUSH) 40 mg DAILYAC IVP Last administered on 02/15/20at 08:23; Start 02/03/20 at 07:30 Ondansetron HCl (Zofran Odt) 4 mg PRN Q8HRS PRN PO NAUSEA/VOMITING, 1ST CHOICE PO; Start 02/02/20 at 17:45 Sumatriptan Succinate (Imitrex) 50 mg PRN BID PRN PO MIGRAINE HEADACHE; Start 02/02/20 at 17:45 Non-Formulary Medication (Terazosin Hcl ) 2 cap QHS PO ; Start 02/02/20 at 21:00; Status UNV Venlafaxine HCl (Effexor) 150 mg BID PO Last administered on 02/15/20at 08:24; Start 02/02/20 at 21:00 Fentanyl Citrate 30 ml @ 0 mls/hr CONT PRN IV SEE PROTOCOL Last administered on 02/06/20at 05:48; Start 02/02/20 at 16:30; Stop 02/06/20 at 10:59; Status DC Propofol 100 ml @ 0 mls/hr CONT PRN IV SEE PROTOCOL Last administered on 02/09/20at 17:03; Start 02/02/20 at 16:30 Fentanyl Citrate (Fentanyl 2ml Vial) 25 mcg PRN Q1HR PRN IV SEE COMMENTS; Start 02/02/20 at 16:30 Fentanyl Citrate (Fentanyl 2ml Vial) 50 mcg PRN Q1HR PRN IV SEE COMMENTS; Start 02/02/20 at 16:30 Chlorhexidine Gluconate (Peridex) 15 ml BID MM Last administered on 02/07/20at 21:20; Start 02/02/20 at 21:00; Stop 02/08/20 at 18:56; Status DC Morphine Sulfate (Morphine Sulfate) 2 mg PRN Q1HR PRN IV SEE COMMENTS.; Start 02/02/20 at 16:30 Morphine Sulfate (Morphine Sulfate) 4 mg PRN Q1HR PRN IV SEE COMMENTS.; Start 02/02/20 at 16:30 Midazolam HCl (Versed) 1 mg PRN Q30MIN PRN IV SEE COMMENTS.; Start 02/02/20 at 16:30 Piperacillin Sod/ Tazobactam Sod 4.5 gm/Sodium Chloride 100 ml @ 200 mls/hr 1X ONCE IV Last administered on 02/02/20at 17:03; Start 02/02/20 at 16:30; Stop 02/02/20 at 16:59; Status DC Azithromycin 250 ml @ 250 mls/hr 1X ONCE IV Last administered on 02/02/20at 17:40; Start 02/02/20 at 16:30; Stop 02/02/20 at 17:34; Status DC Dexamethasone Sodium Phosphate (Decadron) 10 mg 1X ONCE IVP Last administered on 02/02/20at 16:54; Start 02/02/20 at 16:30; Stop 02/02/20 at 16:33; Status DC Midazolam HCl (Versed) 5 mg 1X ONCE IV Last administered on 02/02/20at 16:35; Start 02/02/20 at 16:45; Stop 02/02/20 at 16:46; Status DC Insulin Human Regular (HumuLIN R VIAL) 8 unit 1X ONCE SQ Last administered on 02/02/20at 16:51; Start 02/02/20 at 16:45; Stop 02/02/20 at 16:46; Status DC Sodium Chloride 1,000 ml @ 500 mls/hr Q2H IV Last administered on 02/02/20at 18:33; Start 02/02/20 at 16:36; Stop 02/02/20 at 18:35; Status DC Insulin Human Regular 100 unit/ Sodium Chloride 101 ml @ 0 mls/hr CONT PRN PRN IV PER PROTOCOL Last administered on 02/03/20at 02:08; Start 02/02/20 at 16:45; Stop 02/03/20 at 02:31; Status DC Insulin Human Regular 100 ml @ As Directed STK-MED ONCE IV ; Start 02/02/20 at 16:41; Stop 02/02/20 at 16:41; Status DC Etomidate (Amidate) 20 mg 1X ONCE IV ; Start 02/02/20 at 17:15; Stop 02/02/20 at 17:22; Status DC Rocuronium [place] (Zemuron) 50 mg 1X ONCE IV ; Start 02/02/20 at 17:15; Stop 02/02/20 at 17:34; Status DC Piperacillin Sod/ Tazobactam Sod 3.375 gm/Sodium Chloride 50 ml @ 100 mls/hr Q6HRS IV Last administered on 02/15/20at 06:05; Start 02/03/20 at 00:00 Sodium Chloride 1,000 ml @ 250 mls/hr Q4H IV Last administered on 02/02/20at 18:43; Start 02/02/20 at 18:45; Stop 02/02/20 at 22:40; Status DC Pantoprazole Sodium (PROTONIX VIAL for IV PUSH) 40 mg 1X ONCE IVP Last administered on 02/02/20at 22:47; Start 02/02/20 at 20:15; Stop 02/02/20 at 20:40; Status DC Labetalol HCl (Normodyne Iv Push) 10 mg PRN Q4HRS PRN IVP HYPERTENSION, 2ND CHOICE Last administered on 02/04/20at 05:20; Start 02/02/20 at 20:15; Stop 02/10/20 at 15:23; Status DC Dextrose/Sodium Chloride 1,000 ml @ 250 mls/hr Q4H IV Last administered on 02/03/20at 07:59; Start 02/02/20 at 22:45; Stop 02/03/20 at 11:23; Status DC Insulin Human Regular 100 unit/ Sodium Chloride 101 ml @ 0 mls/hr CONT PRN IV SEE I/O RECORD; Start 02/03/20 at 02:15 Potassium Chloride/Water 100 ml @ 100 mls/hr PRN Q1HR PRN IV SEE COMMENTS; Start 02/03/20 at 05:00 Potassium Chloride/Water 100 ml @ 100 mls/hr Q1H IV Last administered on at 07:58; Start 02/03/20 at 05:00; Stop 02/03/20 at 08:59; Status DC Insulin Glargine (Lantus Syringe) 18 unit BID SQ Last administered on 02/10/20at 08:57; Start 02/03/20 at 09:00; Stop 02/10/20 at 11:00; Status DC Insulin Human Lispro (HumaLOG) 0-9 UNITS Q6HRS SQ Last administered on 02/13/20at 14:17; Start 02/03/20 at 12:00 Dextrose (Dextrose 50%-Water Syringe) 12.5 gm PRN Q15MIN PRN IV SEE COMMENTS Last administered on 02/15/20at 00:37; Start 02/03/20 at 06:15 Sodium Chloride 1,000 ml @ 125 mls/hr 1X ONCE IV Last administered on 02/03/20at 12:01; Start 02/03/20 at 11:30; Stop 02/03/20 at 19:29; Status DC Vecuronium [place] (Norcuron Bolus) 10 mg PRN Q6HRS PRN IV SEDATION Last administered on 02/04/20at 12:09; Start 02/04/20 at 07:30; Stop 02/04/20 at 19:30; Status DC Potassium Chloride/Water 100 ml @ 100 mls/hr 1X ONCE IV Last administered on 02/04/20at 10:04; Start 02/04/20 at 10:00; Stop 02/04/20 at 10:59; Status DC Tocilizumab 400 mg/Sodium Chloride 100 ml @ 100 mls/hr 1X ONCE IV Last adm inistered on 02/04/20at 14:53; Start 02/04/20 at 13:00; Stop 02/04/20 at 13:59; Status DC Enoxaparin Sodium (Lovenox 40mg Syringe) 40 mg BID SQ Last administered on 02/11/20 07:56; Start 02/04/20 at 21:00; Stop 02/11/20 at 16:16; Status DC Sodium Chloride 1,000 ml @ 125 mls/hr Q8H IV Last administered on 02/10/20at 02:10; Start 02/04/20 at 16:00; Stop 02/10/20 at 08:45; Status DC Vecuronium [place] (Norcuron Bolus) 10 mg PRN Q1HR PRN IV SEDATION Last administered on 02/09/20at 12:12; Start 02/04/20 at 19:30 Docusate Sodium (Colace Solution) 100 mg DAILY PO Last administered on 02/15/20 08:23; Start 02/05/20 at 09:00 Norepinephrine Bitartrate 8 mg/ Dextrose 258 ml @ 15.519 mls/ hr CONT PRN IV PER PROTOCOL Last administered on 02/07/20at 02:51; Start 02/04/20 at 22:30 Potassium Bicarbonate (Potassium Effervescent Tablet) 40 meq 1X ONCE PO Last administered on 02/05/20at 08:26; Start 02/05/20 at 07:45; Stop 02/05/20 at 07:46; Status DC Midazolam HCl 100 mg/Sodium Chloride 100 ml @ 1 mls/hr CONT PRN IV . Last administered on 02/14/20at 23:29; Start 02/05/20 at 10:00 Methylprednisolone Sodium Succinate (SOLU-Medrol 40MG VIAL) 40 mg Q8HRS IV Last administered on 02/15/20 06:06; Start 02/05/20 at 14:00 Hydralazine HCl (Apresoline Inj) 10 mg PRN Q4HRS PRN IVP ELEVATED BP, SEE COMMENTS Last administered on 02/09/20at 02:15; Start 02/05/20 at 17:00; Stop 02/09/20 at 09:08; Status DC Fentanyl Citrate 55 ml @ 1.98 mls/hr CONT PRN IV SEE PROTOCOL Last administered on 02/15/20at 03:45; Start 02/06/20 at 11:00 Furosemide (Lasix) 20 mg 1X ONCE IVP Last administered on 02/06/20at 14:08; Start 02/06/20 at 14:00; Stop 02/06/20 at 14:01; Status DC Phenylephrine HCl 50 mg/Sodium Chloride 255 ml @ 13.372 mls/ hr CONT PRN IV SEE I/O RECORD Last administered on 02/07/20at 05:51; Start 02/07/20 at 05:45 Furosemide (Lasix) 20 mg 1X ONCE IVP Last administered on 02/07/20at 13:12; Start 02/07/20 at 13:15; Stop 02/07/20 at 13:16; Status DC Nicardipine HCl 50 mg/Sodium Chloride 250 ml @ 25 mls/hr CONT PRN IV SEE I/O RECORD Last administered on 02/13/20at 15:05; Start 02/08/20 at 10:15 Potassium Chloride/Water 100 ml @ 100 mls/hr Q1H IV Last administered on 02/08/20at 18:17; Start 02/08/20 at 16:00; Stop 02/08/20 at 17:59; Status DC Metoprolol Tartrate (Lopressor Vial) 5 mg Q6HRS IVP Last administered on 02/10/20at 11:56; Start 02/08/20 at 18:00; Stop 02/10/20 at 15:23; Status DC Hydralazine HCl (Apresoline Inj) 10 mg PRN Q4HRS PRN IVP ELEVATED BP, SEE COMMENTS Last administered on 02/15/20at 02:05; Start 02/08/20 at 17:15 Lorazepam 40 mg/ Sodium Chloride 270 ml @ 0 mls/hr CONT PRN IV SEE PROTOCOL Last administered on 02/15/20at 01:38; Start 02/09/20 at 09:00 Sodium Bicarbonate (Sodium Bicarb Adult 8.4% Syr) 100 meq 1X ONCE IV Last administered on 02/09/20at 09:18; Start 02/09/20 at 09:00; Stop 02/09/20 at 09:03; Status DC Potassium Chloride/Water 100 ml @ 100 mls/hr 1X ONCE IV Last administered on 02/09/20at 11:35; Start 02/09/20 at 11:00; Stop 02/09/20 at 11:59; Status DC Vecuronium [place] 50 mg/ Miscellaneous 50 ml @ 4.464 mls/ hr CONT PRN IV SEE I/O RECORD Last administered on 02/15/20at 05:02; Start 02/09/20 at 12:15 Albumin Human 250 ml @ 62.5 mls/hr 1X ONCE IV Last administered on 02/10/20at 08:56; Start 02/10/20 at 08:45; Stop 02/10/20 at 12:44; Status DC Sodium Bicarbonate (Sodium Bicarb Adult 8.4% Syr) 100 meq 1X ONCE IV Last administered on 02/10/20at 08:56; Start 02/10/20 at 08:45; Stop 02/10/20 at 08:46; Status DC Furosemide (Lasix) 40 mg 1X ONCE IVP Last administered on 02/10/20at 10:57; Start 02/10/20 at 10:45; Stop 02/10/20 at 10:46; Status DC Insulin Glargine (Lantus Syringe) 24 unit BID SQ Last administered on 02/11/20at 09:52; Start 02/10/20 at 21:00; Stop 02/11/20 at 13:31; Status DC Isosorbide Dinitrate (Isordil) 20 mg TID PO Last administered on 02/11/20at 07:55; Start 02/10/20 at 21:00; Stop 02/11/20 at 09:55; Status DC Labetalol HCl (Normodyne Iv Push) 20 mg PRN Q4HRS PRN IVP HYPERTENSION, 2ND CHOICE; Start 02/10/20 at 15:30; Stop 02/12/20 at 09:16; Status DC Metoprolol Tartrate (Lopressor Vial) 10 mg Q6HRS IVP Last administered on 02/12/20at 05:51; Start 02/10/20 at 18:00; Stop 02/12/20 at 09:16; Status DC Metoprolol Tartrate (Lopressor Vial) 5 mg 1X ONCE IVP Last administered on 02/10/20at 15:46; Start 02/10/20 at 15:30; Stop 02/10/20 at 15:31; Status DC Isosorbide Dinitrate (Isordil) 10 mg 1X ONCE PO Last administered on 02/10/20at 15:44; Start 02/10/20 at 15:30; Stop 02/10/20 at 15:31; Status DC Isosorbide Dinitrate (Isordil) 40 mg Q8HRS PO Last administered on 02/15/20 06:07; Start 02/11/20 at 14:00 Hydralazine HCl (Apresoline) 50 mg Q8HRS PO Last administered on 02/12/20at 05:52; Start 02/11/20 at 14:00; Stop 02/12/20 at 09:16; Status DC Clonidine HCl (Catapres) 0.1 mg PRN Q1HR PRN PO HYPERTENSION Last administered on 02/14/20at 08:25; Start 02/11/20 at 10:00 Furosemide (Lasix) 40 mg DAILY IVP Last administered on 02/15/20at 08:23; Start 02/11/20 at 11:00 Insulin Glargine (Lantus Syringe) 28 unit BID SQ Last administered on 02/14/20at 08:22; Start 02/11/20 at 21:00 Heparin Sodium/ Dextrose 250 ml @ 16.4 mls/hr CONT PRN IV PER PROTOCOL Last administered on 02/15/20at 02:52; Start 02/11/20 at 16:30 Heparin Sodium (Porcine) (Heparin Sodium) 3,100 unit PRN Q6HRS PRN IV FOR UFH LEVEL LESS THAN 0.2; Start 02/11/20 at 16:30 Heparin Sodium (Porcine) (Heparin Sodium) 1,550 unit PRN Q6HRS PRN IV FOR UFH LEVEL 0.2 - 0.29; Start 02/11/20 at 16:30 Hydralazine HCl (Apresoline) 100 mg Q8HRS PO Last administered on 02/15/20at 06:07; Start 02/12/20 at 10:00 Labetalol HCl (Trandate) 400 mg BID PO Last administered on 02/15/20at 08:24; Start 02/12/20 at 21:00 Furosemide (Lasix) 40 mg 1X ONCE IVP Last administered on 02/12/20at 10:10; Start 02/12/20 at 09:30; Stop 02/12/20 at 09:31; Status DC Dextrose/Sodium Chloride 1,000 ml @ 50 mls/hr 1X ONCE IV Last administered on 02/15/20at 02:50; Start 02/15/20 at 02:30; Stop 6/29/20 at 22:29 Info (Anti-Coagulation Monitoring By Pharmacy) 1 each PRN DAILY PRN MC SEE COMMENTS; Start 02/15/20 at 09:15 Active Scripts Active Aspirin 325 Mg Tablet 325 Mg PO DAILY Smjcfl-Yhnpwstc-Nnru 50-325-40 (Butalb/Acetaminophen/Caffeine) 1 Each Tablet 1-2 Tab PO PRN Q4HRS PRN MDD 6 tablets 2 Days Ondansetron Odt (Ondansetron) 4 Mg Tab.rapdis 1 Tab PO PRN Q6-8HRS PRN Mgkjtu-Bdkityho-Hist 50-325-40 (Butalb/Acetaminophen/Caffeine) 1 Each Tablet 1 Each PO Q6HRS PRN Reported Venlafaxine Hcl Er (Venlafaxine Hcl) 150 Mg Tab.er.24 1 Tab PO BID Novolog (Insulin Aspart) 100 Unit/1 Ml Cartridge 25 Unit SQ TIDWMEALS Metformin Hcl 1,000 Mg Tablet 1,000 Mg PO BIDWMEALS Zofran (Ondansetron Hcl) 4 Mg Tablet 1 Tab PO Q6HRS Terazosin Hcl 2 Mg Capsule 2 Cap PO QHS Lantus Solostar (Insulin Glargine,Hum.rec.anlog) 100 Unit/1 Ml Insuln.pen 80 Unit SQ QHS Metoprolol Tartrate 50 Mg Tablet 1 Tab PO BID Omeprazole 20 Mg Capsule.dr 20 Mg PO BID Lisinopril 40 Mg Tablet 1 Tab PO DAILY Imitrex (Sumatriptan Succinate) 50 Mg Tablet 50 Mg PO PRN BID PRN Hydrochlorothiazide Tablet (Hydrochlorothiazide) 12.5 Mg Tablet 25 Mg PO DAILY Meclizine Hcl 25 Mg Tablet 25 Mg PO PRN TID PRN 90 Days Patanol (Olopatadine Hcl) 5 Ml Drops 1 Drop EACHEYE BID Atorvastatin Calcium 20 Mg Tablet 1 Tab PO DAILY Isosorbide Mononitrate 20 Mg Tablet 20 Mg PO BID Amlodipine Besylate 10 Mg Tablet 10 Mg PO HS Isosorbide Dinitrate 30 Mg Tablet 20 Mg PO DAILY Hydrochlorothiazide Tablet (Hydrochlorothiazide) 25 Mg Tablet 25 Mg PO DAILY Vitals/I & O Vital Sign - Last 24 Hours 02/14/20 02/14/20 02/14/20 02/14/20 10:00 11:00 11:50 12:00 Pulse 86 84 Resp 28 28 B/P (MAP) 164/66 (98) 172/68 (102) Pulse Ox 96 96 97 O2 Delivery Ventilator Ventilator Ventilator 02/14/20 02/14/20 02/14/20 02/14/20 12:00 12:00 13:00 14:00 Temp 97.9 97.9 Pulse 84 82 80 Resp B/P (MAP) 160/66 (97) 142/62 (88) 150/64 (92) Pulse Ox 97 96 96 O2 Delivery Ventilator Mechanical Ventilator Ventilator Ventilator 02/14/20 02/14/20 02/14/20 02/14/20 15:00 15:02 15:03 16:00 Pulse 80 80 80 Resp B/P (MAP) 144/62 (89) 146/63 146/63 Pulse Ox 96 O2 Delivery Ventilator Mechanical Ventilator 02/14/20 02/14/20 02/14/20 02/14/20 16:00 16:00 16:23 17:00 Temp 97.6 97.6 Pulse 80 79 B/P (MAP) 160/66 (97) 155/66 (95) Pulse Ox 97 96 97 O2 Delivery Ventilator Ventilator Ventilator 02/14/20 02/14/20 02/14/20 02/14/20 18:00 19:00 19:30 20:00 Pulse 79 79 Resp B/P (MAP) 165/69 (101) 182/76 (111) Pulse Ox 97 98 98 O2 Delivery Ventilator Ventilator Ventilator Mechanical Ventilator 02/14/20 02/14/20 02/14/20 02/14/20 20:00 20:00 21:00 21:57 Temp 96.7 96.7 Pulse 83 85 85 B/P (MAP) 187/73 (111) 183/67 (105) 183/67 Pulse Ox 98 99 O2 Delivery Ventilator Ventilator 02/14/20 02/14/20 02/14/20 02/14/20 21:57 21:58 22:00 23:00 Pulse 85 85 83 83 Resp B/P (MAP) 183/67 183/67 162/67 (98) 149/58 (88) Pulse Ox 99 95 O2 Delivery Ventilator Ventilator 02/15/20 02/15/20 02/15/20 02/15/20 00:00 00:00 00:00 00:10 Temp 98.2 98.2 Pulse 83 Resp 28 B/P (MAP) 154/60 (91) Pulse Ox 98 98 O2 Delivery Ventilator Mechanical Ventilator Ventilator 02/15/20 02/15/20 02/15/20 02/15/20 01:00 02:00 02:05 03:00 Pulse 86 95 95 91 Resp 28 B/P (MAP) 171/64 (99) 199/74 (115) 199/75 135/60 (85) Pulse Ox 97 97 93 O2 Delivery Ventilator Ventilator Ventilator 02/15/20 02/15/20 02/15/20 02/15/20 03:45 04:00 04:00 04:00 Temp 98.1 98.1 Pulse 88 Resp B/P (MAP) 111/51 (71) Pulse Ox 93 91 O2 Delivery Ventilator Mechanical Ventilator 02/15/20 02/15/20 02/15/20 02/15/20 04:15 04:33 05:00 06:00 Pulse 86 86 Resp B/P (MAP) 117/54 (75) 124/54 (77) Pulse Ox 91 98 92 93 O2 Delivery Ventilator Ventilator Ventilator 02/15/20 02/15/20 02/15/20 02/15/20 06:07 06:07 07:26 08:24 Pulse 86 86 83 B/P (MAP) 124/54 124/54 112/53 Pulse Ox 97 O2 Delivery Ventilator Intake and Output 02/14/20 02/14/20 02/15/20 15:00 23:00 07:00 Intake Total 350 ml 2905.7 ml 600 ml Output Total 350 ml 625 ml 500 ml Balance 0 ml 2280.7 ml 100 ml RENU TAI MD Feb 15, 2020 09:23
--- NOTE | 2020-02-15 11:04 | NUR ---
SS following up with discharge planning. SS reviewed pt chart and discussed with pt RN. Pt remain on the vent at this time. Pt COVID19 positive. Pt on IV Zosyn and heparin drip. SS will continue to follow for discharge planning.
[2020-02-15] MEDS: MIDAZOLAM HCL 100 MG in IV NORMAL SALINE 100ML 100 ML IV PRN ×2 (11:14→22:18)
--- NOTE | 2020-02-15 12:24 | PDOC ---
PULMONARY PROGRESS NOTES Subjective Currently A/C mode -- 20 of PEEP 100% FiO2-- sedated with versed, Fent, and VEC gtt for paralysis Off of Cardene Vitals Vital Signs Date Time Temp Pulse Resp B/P (MAP) Pulse Ox O2 Delivery O2 Flow Rate FiO2 02/15/20 11:26 Ventilator 02/15/20 09:00 82 28 114/52 (72) 91 02/15/20 08:00 97.5 97.5 Comments ros unable to obtain sedated on vent Visual exam performed due to COVID-19 pandemic Patient appears to be comfortable in sync with the ventilator, no significant Labs Laboratory Tests Test 02/13/20 13:59 02/13/20 18:12 02/13/20 23:42 02/14/20 02:00 Glucose (Fingerstick) 203 mg/dL (70-99) 167 mg/dL (70-99) 147 mg/dL (70-99) Heparin Anti-Xa Act, Unfractionated 1.01 IU/mL (0.30-0.70) Test 02/14/20 05:21 02/14/20 05:30 02/14/20 08:00 02/14/20 08:50 Glucose (Fingerstick) 101 mg/dL (70-99) White Blood Count 19.3 x10^3/uL (4.0-11.0) Red Blood Count 3.68 x10^6/uL (4.30-5.70) Hemoglobin 10.9 g/dL (13.0-17.5) Hematocrit 32.5 % (39.0-53.0) Mean Corpuscular Volume 88 fL (79-100) Mean Corpuscular Hemoglobin 30 pg (25-35) Mean Corpuscular Hemoglobin Concent 33 g/dL (31-37) Red Cell Distribution Width 14.9 % (11.5-14.5) Platelet Count 188 x10^3/uL (140-400) Neutrophils (%) (Auto) 83 % (31-73) Lymphocytes (%) (Auto) 7 % (24-48) Monocytes (%) (Auto) 9 % (0-9) Eosinophils (%) (Auto) 1 % (0-3) Basophils (%) (Auto) 0 % (0-3) Neutrophils # (Auto) 16.0 x10^3/uL (1.8-7.7) Lymphocytes # (Auto) 1.3 x10^3/uL (1.0-4.8) Monocytes # (Auto) 1.7 x10^3/uL (0.0-1.1) Eosinophils # (Auto) 0.2 x10^3/uL (0.0-0.7) Basophils # (Auto) 0.1 x10^3/uL (0.0-0.2) O2 Saturation 83 % (92-99) Arterial Blood pH 7.24 (7.35-7.45) Arterial Blood pCO2 at Patient Temp 46 mmHg (35-46) Arterial Blood pO2 at Patient Temp 52 mmHg (75-108) Arterial Blood HCO3 19 mmol/L (21-28) Arterial Blood Base Excess -8 mmol/L (-3-3) FiO2 100 Heparin Anti-Xa Act, Unfractionated 0.87 IU/mL (0.30-0.70) Sodium Level 142 mmol/L (136-145) Potassium Level 4.7 mmol/L (3.5-5.1) Chloride Level 106 mmol/L (98-107) Carbon Dioxide Level 22 mmol/L (21-32) Anion Gap 14 (6-14) Blood Urea Nitrogen 100 mg/dL (8-26) Creatinine 2.7 mg/dL (0.7-1.3) Estimated GFR (Cockcroft-Gault) 30.8 Glucose Level 125 mg/dL (70-99) Calcium Level 7.6 mg/dL (8.5-10.1) Magnesium Level 2.4 mg/dL (1.8-2.4) Test 02/14/20 15:50 02/14/20 17:35 02/14/20 18:03 02/14/20 22:00 Heparin Anti-Xa Act, Unfractionated 0.80 IU/mL (0.30-0.70) 0.37 IU/mL (0.30-0.70) Glucose (Fingerstick) 53 mg/dL (70-99) 106 mg/dL (70-99) Test 02/14/20 23:56 02/15/20 00:36 02/15/20 01:22 02/15/20 04:00 Glucose (Fingerstick) 46 mg/dL (70-99) 64 mg/dL (70-99) 82 mg/dL (70-99) White Blood Count 26.1 x10^3/uL (4.0-11.0) Red Blood Count 3.32 x10^6/uL (4.30-5.70) Hemoglobin 9.6 g/dL (13.0-17.5) Hematocrit 29.5 % (39.0-53.0) Mean Corpuscular Volume 89 fL (79-100) Mean Corpuscular Hemoglobin 29 pg (25-35) Mean Corpuscular Hemoglobin Concent 33 g/dL (31-37) Red Cell Distribution Width 15.3 % (11.5-14.5) Platelet Count 165 x10^3/uL (140-400) Heparin Anti-Xa Act, Unfractionated 0.27 IU/mL (0.30-0.70) Sodium Level 142 mmol/L (136-145) Potassium Level 4.9 mmol/L (3.5-5.1) Chloride Level 109 mmol/L (98-107) Carbon Dioxide Level 19 mmol/L (21-32) Anion Gap 14 (6-14) Blood Urea Nitrogen 107 mg/dL (8-26) Creatinine 2.8 mg/dL (0.7-1.3) Estimated GFR (Cockcroft-Gault) 29.5 BUN/Creatinine Ratio 38 (6-20) Glucose Level 90 mg/dL (70-99) Calcium Level 6.9 mg/dL (8.5-10.1) Total Bilirubin 0.3 mg/dL (0.2-1.0) Aspartate Amino Transf (AST/SGOT) 27 U/L (15-37) Alanine Aminotransferase (ALT/SGPT) 23 U/L (16-63) Alkaline Phosphatase 185 U/L (46-116) Total Protein 4.4 g/dL (6.4-8.2) Albumin 1.6 g/dL (3.4-5.0) Albumin/Globulin Ratio 0.6 (1.0-1.7) Test 02/15/20 06:11 02/15/20 08:09 02/15/20 11:40 02/15/20 11:52 Glucose (Fingerstick) 91 mg/dL (70-99) 115 mg/dL (70-99) O2 Saturation 84 % (92-99) Arterial Blood pH 7.21 (7.35-7.45) Arterial Blood pCO2 at Patient Temp 43 mmHg (35-46) Arterial Blood pO2 at Patient Temp 57 mmHg (75-108) Arterial Blood HCO3 17 mmol/L (21-28) Arterial Blood Base Excess -10 mmol/L (-3-3) FiO2 100 Heparin Anti-Xa Act, Unfractionated 0.65 IU/mL (0.30-0.70) Laboratory Tests Test 02/14/20 15:50 02/14/20 17:35 02/14/20 18:03 02/14/20 22:00 Heparin Anti-Xa Act, Unfractionated 0.80 IU/mL (0.30-0.70) 0.37 IU/mL (0.30-0.70) Glucose (Fingerstick) 53 mg/dL (70-99) 106 mg/dL (70-99) Test 02/14/20 23:56 02/15/20 00:36 02/15/20 01:22 02/15/20 04:00 Glucose (Fingerstick) 46 mg/dL (70-99) 64 mg/dL (70-99) 82 mg/dL (70-99) White Blood Count 26.1 x10^3/uL (4.0-11.0) Red Blood Count 3.32 x10^6/uL (4.30-5.70) Hemoglobin 9.6 g/dL (13.0-17.5) Hematocrit 29.5 % (39.0-53.0) Mean Corpuscular Volume 89 fL (79-100) Mean Corpuscular Hemoglobin 29 pg (25-35) Mean Corpuscular Hemoglobin Concent 33 g/dL (31-37) Red Cell Distribution Width 15.3 % (11.5-14.5) Platelet Count 165 x10^3/uL (140-400) Heparin Anti-Xa Act, Unfractionated 0.27 IU/mL (0.30-0.70) Sodium Level 142 mmol/L (136-145) Potassium Level 4.9 mmol/L (3.5-5.1) Chloride Level 109 mmol/L (98-107) Carbon Dioxide Level 19 mmol/L (21-32) Anion Gap 14 (6-14) Blood Urea Nitrogen 107 mg/dL (8-26) Creatinine 2.8 mg/dL (0.7-1.3) Estimated GFR (Cockcroft-Gault) 29.5 BUN/Creatinine Ratio 38 (6-20) Glucose Level 90 mg/dL (70-99) Calcium Level 6.9 mg/dL (8.5-10.1) Total Bilirubin 0.3 mg/dL (0.2-1.0) Aspartate Amino Transf (AST/SGOT) 27 U/L (15-37) Alanine Aminotransferase (ALT/SGPT) 23 U/L (16-63) Alkaline Phosphatase 185 U/L (46-116) Total Protein 4.4 g/dL (6.4-8.2) Albumin 1.6 g/dL (3.4-5.0) Albumin/Globulin Ratio 0.6 (1.0-1.7) Test 02/15/20 06:11 02/15/20 08:09 02/15/20 11:40 02/15/20 11:52 Glucose (Fingerstick) 91 mg/dL (70-99) 115 mg/dL (70-99) O2 Saturation 84 % (92-99) Arterial Blood pH 7.21 (7.35-7.45) Arterial Blood pCO2 at Patient Temp 43 mmHg (35-46) Arterial Blood pO2 at Patient Temp 57 mmHg (75-108) Arterial Blood HCO3 17 mmol/L (21-28) Arterial Blood Base Excess -10 mmol/L (-3-3) FiO2 100 Heparin Anti-Xa Act, Unfractionated 0.65 IU/mL (0.30-0.70) Medications Active Scripts Medications Dose Route/Sig Max Daily Dose Days Date Category Aspirin 325 Mg Tablet 325 Mg PO DAILY 03/20/19 Rx Venlafaxine Hcl Er (Venlafaxine Hcl) 150 Mg Tab.er.24 1 Tab PO BID 03/18/19 Reported Novolog (Insulin Aspart) 100 Unit/1 Ml Cartridge 25 Unit SQ TIDWMEALS 03/18/19 Reported Metformin Hcl 1,000 Mg Tablet 1,000 Mg PO BIDWMEALS 03/18/19 Reported Zofran (Ondansetron Hcl) 4 Mg Tablet 1 Tab PO Q6HRS 03/18/19 Reported Terazosin Hcl 2 Mg Capsule 2 Cap PO QHS 03/18/19 Reported Lantus Solostar (Insulin Glargine,Hum.rec.anlog) 100 Unit/1 Ml Insuln.pen 80 Unit SQ QHS 03/18/19 Reported Metoprolol Tartrate 50 Mg Tablet 1 Tab PO BID 03/18/19 Reported Omeprazole 20 Mg Capsule.dr 20 Mg PO BID 03/18/19 Reported Lisinopril 40 Mg Tablet 1 Tab PO DAILY 03/18/19 Reported Aqlekb-Liqbperd-Vujg 50-325-40 (Butalb/Acetaminophen/Caffeine) 1 Each Tablet 1-2 Tab PO PRN Q4HRS PRN MDD 6 tablets 2 07/30/18 Rx Imitrex (Sumatriptan Succinate) 50 Mg Tablet 50 Mg PO PRN BID PRN 01/15/15 Reported Hydrochlorothiazide Tablet (Hydrochlorothiazide) 12.5 Mg Tablet 25 Mg PO DAILY 01/15/15 Reported Meclizine Hcl 25 Mg Tablet 25 Mg PO PRN TID PRN 90 01/15/15 Reported Patanol (Olopatadine Hcl) 5 Ml Drops 1 Drop EACHEYE BID 01/11/15 Reported Atorvastatin Calcium 20 Mg Tablet 1 Tab PO DAILY 01/11/15 Reported Isosorbide Mononitrate 20 Mg Tablet 20 Mg PO BID 08/22/13 Reported Amlodipine Besylate 10 Mg Tablet 10 Mg PO HS 08/22/13 Reported Isosorbide Dinitrate 30 Mg Tablet 20 Mg PO DAILY 07/15/19 Reported Hydrochlorothiazide Tablet (Hydrochlorothiazide) 25 Mg Tablet 25 Mg PO DAILY 07/15/19 Reported Ondansetron Odt (Ondansetron) 4 Mg Tab.rapdis 1 Tab PO PRN Q6-8HRS PRN 01/31/19 Rx Rxgihc-Egrvdada-Jgzb 50-325-40 (Butalb/Acetaminophen/Caffeine) 1 Each Tablet 1 Each PO Q6HRS PRN 01/31/19 Rx Comments CXR: IMPRESSION: 1. Bilateral airspace disease, not significantly changed. 2. Stable position of tubes and lines.. Impression . 1. Acute hypoxic respiratory failure secondary to COVID-19 pneumonia and ARDS 2. COVID-19 sepsis. 3. Abnormal chest x-ray 4. 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 5. Diabetic ketoacidosis, now anion gap closed and being monitored by PCP.BS better 6. Hypernatremia, s/p IV fluids. resolved 7. Hypertension/ cardene 8. Possible acute pulmonary emboli Plan . Continue current ventilator support A/C mode PEEP increase PEEP to 20 today discontinue Cardene Cont. heparin gtt for presumptive PE, no major signs of bleeding Broad-spectrum antibiotics PRN Lasix Status post convalescent plasma status post Tocilizumab on 02/03/2020 FULL code, will discuss will family --- family considering DNR D/W RN and RT Total cumulative critical care time of 30 minutes, reviewing data, chest x-ray, and lab, and formulating a plan. KIMBERLY LOPEZ MD Feb 15, 2020 12:24
--- NOTE | 2020-02-15 12:29 | PDOC ---
PROGRESS NOTES Subjective Subjective Patient seen and evaluated Objective Objective Vital Signs Date Time Temp Pulse Resp B/P (MAP) Pulse Ox O2 Delivery O2 Flow Rate FiO2 02/15/20 11:26 Ventilator 02/15/20 09:00 82 28 114/52 (72) 91 02/15/20 08:00 97.5 97.5 02/11/20 20:29 15.0 Intake and Output 02/15/20 07:00 Intake Total 3855.7 ml Output Total 1475 ml Balance 2380.7 ml Intake IV Total 1878.7 ml Tube Feeding 1627 ml Other 350 ml Output Urine Total 1475 ml # Bowel Movements 1 Physical Exam Physical Exam Patient seen from outside the room. No physical exam today secondary to COVID. Assessment Assessment Problems Medical Problems: (1) Acute metabolic encephalopathy Status: Acute (2) Acute renal insufficiency Status: Acute (3) DKA (diabetic ketoacidoses) Status: Acute (4) Pneumonia Status: Acute (5) Respiratory failure with hypoxia Status: Acute (6) Suspected 2019 novel coronavirus infection Status: Acute Acute respiratory failure secondary to COVID PNA, remains intubated/vent. Followed by the pulmonary service. White count increased today to 26.1. Continue present treatment. Leukocytosis/sepsis. Continuing present medications. CHRISTIANNE; Cr remains elevated. Today at 2.8. Hypertensive urgency; BP stable and controlled. No arrhythmias Hyperlipidemia Prior CVA Acute CHF with possible diastolic dysfunction with ARDS and significant volume repletion. Echo when COVID protocol has been completed Comment Review of Relevant I have reviewed the following items myra (where applicable) has been applied. Labs Laboratory Tests Test 02/13/20 13:59 02/13/20 18:12 02/13/20 23:42 02/14/20 02:00 Glucose (Fingerstick) 203 mg/dL (70-99) 167 mg/dL (70-99) 147 mg/dL (70-99) Heparin Anti-Xa Act, Unfractionated 1.01 IU/mL (0.30-0.70) Test 02/14/20 05:21 02/14/20 05:30 02/14/20 08:00 02/14/20 08:50 Glucose (Fingerstick) 101 mg/dL (70-99) White Blood Count 19.3 x10^3/uL (4.0-11.0) Red Blood Count 3.68 x10^6/uL (4.30-5.70) Hemoglobin 10.9 g/dL (13.0-17.5) Hematocrit 32.5 % (39.0-53.0) Mean Corpuscular Volume 88 fL (79-100) Mean Corpuscular Hemoglobin 30 pg (25-35) Mean Corpuscular Hemoglobin Concent 33 g/dL (31-37) Red Cell Distribution Width 14.9 % (11.5-14.5) Platelet Count 188 x10^3/uL (140-400) Neutrophils (%) (Auto) 83 % (31-73) Lymphocytes (%) (Auto) 7 % (24-48) Monocytes (%) (Auto) 9 % (0-9) Eosinophils (%) (Auto) 1 % (0-3) Basophils (%) (Auto) 0 % (0-3) Neutrophils # (Auto) 16.0 x10^3/uL (1.8-7.7) Lymphocytes # (Auto) 1.3 x10^3/uL (1.0-4.8) Monocytes # (Auto) 1.7 x10^3/uL (0.0-1.1) Eosinophils # (Auto) 0.2 x10^3/uL (0.0-0.7) Basophils # (Auto) 0.1 x10^3/uL (0.0-0.2) O2 Saturation 83 % (92-99) Arterial Blood pH 7.24 (7.35-7.45) Arterial Blood pCO2 at Patient Temp 46 mmHg (35-46) Arterial Blood pO2 at Patient Temp 52 mmHg (75-108) Arterial Blood HCO3 19 mmol/L (21-28) Arterial Blood Base Excess -8 mmol/L (-3-3) FiO2 100 Heparin Anti-Xa Act, Unfractionated 0.87 IU/mL (0.30-0.70) Sodium Level 142 mmol/L (136-145) Potassium Level 4.7 mmol/L (3.5-5.1) Chloride Level 106 mmol/L (98-107) Carbon Dioxide Level 22 mmol/L (21-32) Anion Gap 14 (6-14) Blood Urea Nitrogen 100 mg/dL (8-26) Creatinine 2.7 mg/dL (0.7-1.3) Estimated GFR (Cockcroft-Gault) 30.8 Glucose Level 125 mg/dL (70-99) Calcium Level 7.6 mg/dL (8.5-10.1) Magnesium Level 2.4 mg/dL (1.8-2.4) Test 02/14/20 15:50 02/14/20 17:35 02/14/20 18:03 02/14/20 22:00 Heparin Anti-Xa Act, Unfractionated 0.80 IU/mL (0.30-0.70) 0.37 IU/mL (0.30-0.70) Glucose (Fingerstick) 53 mg/dL (70-99) 106 mg/dL (70-99) Test 02/14/20 23:56 02/15/20 00:36 02/15/20 01:22 02/15/20 04:00 Glucose (Fingerstick) 46 mg/dL (70-99) 64 mg/dL (70-99) 82 mg/dL (70-99) White Blood Count 26.1 x10^3/uL (4.0-11.0) Red Blood Count 3.32 x10^6/uL (4.30-5.70) Hemoglobin 9.6 g/dL (13.0-17.5) Hematocrit 29.5 % (39.0-53.0) Mean Corpuscular Volume 89 fL (79-100) Mean Corpuscular Hemoglobin 29 pg (25-35) Mean Corpuscular Hemoglobin Concent 33 g/dL (31-37) Red Cell Distribution Width 15.3 % (11.5-14.5) Platelet Count 165 x10^3/uL (140-400) Heparin Anti-Xa Act, Unfractionated 0.27 IU/mL (0.30-0.70) Sodium Level 142 mmol/L (136-145) Potassium Level 4.9 mmol/L (3.5-5.1) Chloride Level 109 mmol/L (98-107) Carbon Dioxide Level 19 mmol/L (21-32) Anion Gap 14 (6-14) Blood Urea Nitrogen 107 mg/dL (8-26) Creatinine 2.8 mg/dL (0.7-1.3) Estimated GFR (Cockcroft-Gault) 29.5 BUN/Creatinine Ratio 38 (6-20) Glucose Level 90 mg/dL (70-99) Calcium Level 6.9 mg/dL (8.5-10.1) Total Bilirubin 0.3 mg/dL (0.2-1.0) Aspartate Amino Transf (AST/SGOT) 27 U/L (15-37) Alanine Aminotransferase (ALT/SGPT) 23 U/L (16-63) Alkaline Phosphatase 185 U/L (46-116) Total Protein 4.4 g/dL (6.4-8.2) Albumin 1.6 g/dL (3.4-5.0) Albumin/Globulin Ratio 0.6 (1.0-1.7) Test 02/15/20 06:11 02/15/20 08:09 02/15/20 11:40 02/15/20 11:52 Glucose (Fingerstick) 91 mg/dL (70-99) 115 mg/dL (70-99) O2 Saturation 84 % (92-99) Arterial Blood pH 7.21 (7.35-7.45) Arterial Blood pCO2 at Patient Temp 43 mmHg (35-46) Arterial Blood pO2 at Patient Temp 57 mmHg (75-108) Arterial Blood HCO3 17 mmol/L (21-28) Arterial Blood Base Excess -10 mmol/L (-3-3) FiO2 100 Heparin Anti-Xa Act, Unfractionated 0.65 IU/mL (0.30-0.70) Laboratory Tests Test 02/14/20 15:50 02/14/20 17:35 02/14/20 18:03 02/14/20 22:00 Heparin Anti-Xa Act, Unfractionated 0.80 IU/mL (0.30-0.70) 0.37 IU/mL (0.30-0.70) Glucose (Fingerstick) 53 mg/dL (70-99) 106 mg/dL (70-99) Test 02/14/20 23:56 02/15/20 00:36 02/15/20 01:22 02/15/20 04:00 Glucose (Fingerstick) 46 mg/dL (70-99) 64 mg/dL (70-99) 82 mg/dL (70-99) White Blood Count 26.1 x10^3/uL (4.0-11.0) Red Blood Count 3.32 x10^6/uL (4.30-5.70) Hemoglobin 9.6 g/dL (13.0-17.5) Hematocrit 29.5 % (39.0-53.0) Mean Corpuscular Volume 89 fL (79-100) Mean Corpuscular Hemoglobin 29 pg (25-35) Mean Corpuscular Hemoglobin Concent 33 g/dL (31-37) Red Cell Distribution Width 15.3 % (11.5-14.5) Platelet Count 165 x10^3/uL (140-400) Heparin Anti-Xa Act, Unfractionated 0.27 IU/mL (0.30-0.70) Sodium Level 142 mmol/L (136-145) Potassium Level 4.9 mmol/L (3.5-5.1) Chloride Level 109 mmol/L (98-107) Carbon Dioxide Level 19 mmol/L (21-32) Anion Gap 14 (6-14) Blood Urea Nitrogen 107 mg/dL (8-26) Creatinine 2.8 mg/dL (0.7-1.3) Estimated GFR (Cockcroft-Gault) 29.5 BUN/Creatinine Ratio 38 (6-20) Glucose Level 90 mg/dL (70-99) Calcium Level 6.9 mg/dL (8.5-10.1) Total Bilirubin 0.3 mg/dL (0.2-1.0) Aspartate Amino Transf (AST/SGOT) 27 U/L (15-37) Alanine Aminotransferase (ALT/SGPT) 23 U/L (16-63) Alkaline Phosphatase 185 U/L (46-116) Total Protein 4.4 g/dL (6.4-8.2) Albumin 1.6 g/dL (3.4-5.0) Albumin/Globulin Ratio 0.6 (1.0-1.7) Test 02/15/20 06:11 02/15/20 08:09 02/15/20 11:40 02/15/20 11:52 Glucose (Fingerstick) 91 mg/dL (70-99) 115 mg/dL (70-99) O2 Saturation 84 % (92-99) Arterial Blood pH 7.21 (7.35-7.45) Arterial Blood pCO2 at Patient Temp 43 mmHg (35-46) Arterial Blood pO2 at Patient Temp 57 mmHg (75-108) Arterial Blood HCO3 17 mmol/L (21-28) Arterial Blood Base Excess -10 mmol/L (-3-3) FiO2 100 Heparin Anti-Xa Act, Unfractionated 0.65 IU/mL (0.30-0.70) Microbiology 02/10/20 Urine Culture - Final, Complete 02/02/20 Blood Culture - Final, Complete NO GROWTH AFTER 5 DAYS Medications Current Medications Sodium Chloride 1,000 ml @ 1,000 mls/hr 1X ONCE IV Last administered on 02/02/20at 16:48; Start 02/02/20 at 15:45; Stop 02/02/20 at 16:44; Status DC Etomidate (Amidate) 20 mg 1X ONCE IV Last administered on 02/02/20at 15:54; Start 02/02/20 at 15:45; Stop 02/02/20 at 15:52; Status DC Rocuronium Platter (Zemuron) 50 mg 1X ONCE IV Last administered on 02/02/20at 15:55; Start 02/02/20 at 15:45; Stop 02/02/20 at 15:52; Status DC Propofol 100 ml @ 0 mls/hr CONT PRN IV SEE PROTOCOL Last administered on 02/02/20at 16:33; Start 02/02/20 at 15:45; Stop 02/02/20 at 17:44; Status DC Chlorhexidine Gluconate (Peridex) 15 ml BID MM ; Start 02/02/20 at 21:00; Stop 02/02/20 at 17:39; Status DC Fentanyl Citrate (Fentanyl 2ml Vial) 100 mcg 1X ONCE IV Last administered on 02/02/20at 16:34; Start 02/02/20 at 16:15; Stop 02/02/20 at 16:16; Status DC Sodium Chloride 1,000 ml @ 1,000 mls/hr 1X ONCE IV Last administered on 02/02/20at 16:15; Start 02/02/20 at 16:15; Stop 02/02/20 at 17:20; Status DC Aspirin (Aspirin Rectal Supp) 300 mg 1X ONCE MT Last administered on 02/02/20at 16:35; Start 02/02/20 at 16:15; Stop 02/02/20 at 16:17; Status DC Acetaminophen (Tylenol) 650 mg PRN Q6HRS PRN PO Headaches, Temp > 101.5'; Start 02/02/20 at 16:15 Prochlorperazine Edisylate (Compazine) 5 mg PRN Q6HRS PRN IVP NAUSEA/VOMITING; Start 02/02/20 at 16:15 Prochlorperazine (Compazine) 25 mg PRN Q12HR PRN MT NAUSEA/VOMITING; Start 02/02/20 at 16:15 Info (Icu Electrolyte Protocol) 1 ea DAILY MC Last administered on 02/09/20at 09:00; Start 02/03/20 at 09:00 Heparin Sodium (Porcine) (Heparin Sodium) 5,000 unit Q8HRS SQ Last administered on 02/04/20at 05:32; Start 02/02/20 at 22:00; Stop 02/04/20 at 14:45; Status DC Sodium Chloride (Normal Saline Flush) 3 ml QSHIFT PRN IV AFTER MEDS AND BLOOD DRAWS; Start 02/02/20 at 16:15 Oxycodone/ Acetaminophen (Percocet 5/325) 1 tab PRN Q4HRS PRN PO MILD PAIN, 1ST CHOICE; Start 02/02/20 at 16:15 Morphine Sulfate (Morphine Sulfate) 2 mg PRN Q1HR PRN IV PAIN; Start 02/02/20 at 16:15; Stop 02/11/20 at 11:37; Status DC Senna/Docusate Sodium (Senna Plus) 1 tab BID PO Last administered on 02/15/20at 08:22; Start 02/02/20 at 21:00 Docusate Sodium (Colace) 100 mg BID PO ; Start 02/02/20 at 21:00; Stop 02/04/20 at 19:30; Status DC Lactulose (Lactulose) 20 gm PRN Q12HR PRN PO CONSTIPATION Last administered on 02/12/20at 17:47; Start 02/02/20 at 16:15 Amlodipine Besylate (Norvasc) 10 mg HS PO Last administered on 02/11/20at 21:28; Start 02/02/20 at 21:00; Stop 02/12/20 at 09:16; Status DC Aspirin (Grover Aspirin) 325 mg DAILY PO Last administered on 02/15/20at 08:24; Start 02/03/20 at 09:00 Atorvastatin Calcium (Lipitor) 20 mg QHS PO Last administered on 02/14/20at 21:57; Start 02/02/20 at 21:00 Acetaminophen/ Butalbital/ Caffeine (Fioricet) 1 tab PRN Q6HRS PRN PO MIGRAINE HEADACHE- 1ST CHOICE; Start 02/02/20 at 16:15 Hydrochlorothiazide (Hydrodiuril) 25 mg DAILY PO Last administered on 02/11/20at 07:53; Start 02/03/20 at 09:00; Stop 02/11/20 at 09:55; Status DC Isosorbide Dinitrate (Isordil) 10 mg TID PO Last administered on 02/10/20at 13:53; Start 02/02/20 at 21:00; Stop 02/10/20 at 15:23; Status DC Lisinopril (Prinivil) 40 mg DAILY PO Last administered on 02/11/20at 07:54; St art 02/03/20 at 09:00; Stop 02/12/20 at 09:16; Status DC Metoprolol Tartrate (Lopressor) 50 mg BID PO Last administered on 02/07/20at 21:21; Start 02/02/20 at 21:00; Stop 02/08/20 at 17:13; Status DC Non-Formulary Medication (Hydrochlorothiazide (Hydrochlorothiazide Tablet)) 25 mg DAILY PO ; Start 02/03/20 at 09:00; Status UNV Non-Formulary Medication (Insulin Aspart (Novolog)) 25 unit TIDWMEALS SQ ; Start 02/02/20 at 17:00; Status UNV Non-Formulary Medication (Insulin Glargine,Hum.rec.anlog (Lantus Solostar)) 80 unit QHS SQ ; Start 02/02/20 at 21:00; Status UNV Non-Formulary Medication (Isosorbide Dinitrate ) 20 mg DAILY PO ; Start 02/03/20 at 09:00; Status UNV Meclizine HCl (Antivert) 25 mg PRN Q6HRS PRN PO NAUSEA- 2ND CHOICE; Start 02/02/20 at 17:45 Metformin HCl (Glucophage) 1,000 mg BIDWMEALS PO Last administered on 02/14/20at 08:17; Start 02/02/20 at 17:00; Stop 02/15/20 at 02:23; Status DC Ketotifen Fumarate (Zaditor) 1 drop BID OU Last administered on 02/15/20at 08:24; Start 02/02/20 at 21:00 Pantoprazole Sodium (PROTONIX VIAL for IV PUSH) 40 mg DAILYAC IVP Last administered on 02/15/20at 08:23; Start 02/03/20 at 07:30 Ondansetron HCl (Zofran Odt) 4 mg PRN Q8HRS PRN PO NAUSEA/VOMITING, 1ST CHOICE PO; Start 02/02/20 at 17:45 Sumatriptan Succinate (Imitrex) 50 mg PRN BID PRN PO MIGRAINE HEADACHE; Start 02/02/20 at 17:45 Non-Formulary Medication (Terazosin Hcl ) 2 cap QHS PO ; Start 02/02/20 at 21:00; Status UNV Venlafaxine HCl (Effexor) 150 mg BID PO Last administered on 02/15/20at 08:24; Start 02/02/20 at 21:00 Fentanyl Citrate 30 ml @ 0 mls/hr CONT PRN IV SEE PROTOCOL Last administered on 02/06/20at 05:48; Start 02/02/20 at 16:30; Stop 02/06/20 at 10:59; Status DC Propofol 100 ml @ 0 mls/hr CONT PRN IV SEE PROTOCOL Last administered on 0at 17:03; Start 02/02/20 at 16:30 Fentanyl Citrate (Fentanyl 2ml Vial) 25 mcg PRN Q1HR PRN IV SEE COMMENTS; Start 02/02/20 at 16:30 Fentanyl Citrate (Fentanyl 2ml Vial) 50 mcg PRN Q1HR PRN IV SEE COMMENTS; Start 02/02/20 at 16:30 Chlorhexidine Gluconate (Peridex) 15 ml BID MM Last administered on 02/07/20at 21:20; Start 02/02/20 at 21:00; Stop 02/08/20 at 18:56; Status DC Morphine Sulfate (Morphine Sulfate) 2 mg PRN Q1HR PRN IV SEE COMMENTS.; Start 02/02/20 at 16:30 Morphine Sulfate (Morphine Sulfate) 4 mg PRN Q1HR PRN IV SEE COMMENTS.; Start 02/02/20 at 16:30 Midazolam HCl (Versed) 1 mg PRN Q30MIN PRN IV SEE COMMENTS.; Start 02/02/20 at 16:30 Piperacillin Sod/ Tazobactam Sod 4.5 gm/Sodium Chloride 100 ml @ 200 mls/hr 1X ONCE IV Last administered on 02/02/20at 17:03; Start 02/02/20 at 16:30; Stop 02/02/20 at 16:59; Status DC Azithromycin 250 ml @ 250 mls/hr 1X ONCE IV Last administered on 02/02/20at 17:40; Start 02/02/20 at 16:30; Stop 02/02/20 at 17:34; Status DC Dexamethasone Sodium Phosphate (Decadron) 10 mg 1X ONCE IVP Last administered on 02/02/20at 16:54; Start 02/02/20 at 16:30; Stop 02/02/20 at 16:33; Status DC Midazolam HCl (Versed) 5 mg 1X ONCE IV Last administered on 02/02/20at 16:35; Start 02/02/20 at 16:45; Stop 02/02/20 at 16:46; Status DC Insulin Human Regular (HumuLIN R VIAL) 8 unit 1X ONCE SQ Last administered on 02/02/20at 16:51; Start 02/02/20 at 16:45; Stop 02/02/20 at 16:46; Status DC Sodium Chloride 1,000 ml @ 500 mls/hr Q2H IV Last administered on 02/02/20at 18:33; Start 02/02/20 at 16:36; Stop 02/02/20 at 18:35; Status DC Insulin Human Regular 100 unit/ Sodium Chloride 101 ml @ 0 mls/hr CONT PRN PRN IV PER PROTOCOL Last administered on 02/03/20at 02:08; Start 02/02/20 at 16:45; Stop 02/03/20 at 02:31; Status DC Insulin Human Regular 100 ml @ As Directed STK-MED ONCE IV ; Start 02/02/20 at 16:41; Stop 02/02/20 at 16:41; Status DC Etomidate (Amidate) 20 mg 1X ONCE IV ; Start 02/02/20 at 17:15; Stop 02/02/20 at 17:22; Status DC Rocuronium Platter (Zemuron) 50 mg 1X ONCE IV ; Start 02/02/20 at 17:15; Stop 02/02/20 at 17:34; Status DC Piperacillin Sod/ Tazobactam Sod 3.375 gm/Sodium Chloride 50 ml @ 100 mls/hr Q6HRS IV Last administered on 02/15/20at 06:05; Start 02/03/20 at 00:00 Sodium Chloride 1,000 ml @ 250 mls/hr Q4H IV Last administered on 02/02/20at 18:43; Start 02/02/20 at 18:45; Stop 02/02/20 at 22:40; Status DC Pantoprazole Sodium (PROTONIX VIAL for IV PUSH) 40 mg 1X ONCE IVP Last administered on 02/02/20at 22:47; Start 02/02/20 at 20:15; Stop 02/02/20 at 20:40; Status DC Labetalol HCl (Normodyne Iv Push) 10 mg PRN Q4HRS PRN IVP HYPERTENSION, 2ND CHOICE Last administered on 02/04/20at 05:20; Start 02/02/20 at 20:15; Stop 02/10/20 at 15:23; Status DC Dextrose/Sodium Chloride 1,000 ml @ 250 mls/hr Q4H IV Last administered on 02/03/20at 07:59; Start 02/02/20 at 22:45; Stop 02/03/20 at 11:23; Status DC Insulin Human Regular 100 unit/ Sodium Chloride 101 ml @ 0 mls/hr CONT PRN IV SEE I/O RECORD; Start 02/03/20 at 02:15 Potassium Chloride/Water 100 ml @ 100 mls/hr PRN Q1HR PRN IV SEE COMMENTS; Start 02/03/20 at 05:00 Potassium Chloride/Water 100 ml @ 100 mls/hr Q1H IV Last administered on 02/03/20at 07:58; Start 02/03/20 at 05:00; Stop 02/03/20 at 08:59; Status DC Insulin Glargine (Lantus Syringe) 18 unit BID SQ Last administered on 02/10/20at 08:57; Start 02/03/20 at 09:00; Stop 02/10/20 at 11:00; Status DC Insulin Human Lispro (HumaLOG) 0-9 UNITS Q6HRS SQ Last administered on 02/13/20at 14:17; Start 02/03/20 at 12:00 Dextrose (Dextrose 50%-Water Syringe) 12.5 gm PRN Q15MIN PRN IV SEE COMMENTS Last administered on 02/15/20at 00:37; Start 02/03/20 at 06:15 Sodium Chloride 1,000 ml @ 125 mls/hr 1X ONCE IV Last administered on 02/03/20at 12:01; Start 02/03/20 at 11:30; Stop 02/03/20 at 19:29; Status DC Vecuronium Platter (Norcuron Bolus) 10 mg PRN Q6HRS PRN IV SEDATION Last administered on 02/04/20at 12:09; Start 02/04/20 at 07:30; Stop 02/04/20 at 19:30; Status DC Potassium Chloride/Water 100 ml @ 100 mls/hr 1X ONCE IV Last administered on 02/04/20at 10:04; Start 02/04/20 at 10:00; Stop 02/04/20 at 10:59; Status DC Tocilizumab 400 mg/Sodium Chloride 100 ml @ 100 mls/hr 1X ONCE IV Last administered on 02/04/20at 14:53; Start 02/04/20 at 13:00; Stop 02/04/20 at 13:59; Status DC Enoxaparin Sodium (Lovenox 40mg Syringe) 40 mg BID SQ Last administered on 02/11/20at 07:56; Start 02/04/20 at 21:00; Stop 02/11/20 at 16:16; Status DC Sodium Chloride 1,000 ml @ 125 mls/hr Q8H IV Last administered on 02/10/20at 02:10; Start 02/04/20 at 16:00; Stop 02/10/20 at 08:45; Status DC Vecuronium Platter (Norcuron Bolus) 10 mg PRN Q1HR PRN IV SEDATION Last administered on 02/09/20at 12:12; Start 02/04/20 at 19:30 Docusate Sodium (Colace Solution) 100 mg DAILY PO Last administered on 02/15/20at 08:23; Start 02/05/20 at 09:00 Norepinephrine Bitartrate 8 mg/ Dextrose 258 ml @ 15.519 mls/ hr CONT PRN IV PER PROTOCOL Last administered on 02/07/20at 02:51; Start 02/04/20 at 22:30 Potassium Bicarbonate (Potassium Effervescent Tablet) 40 meq 1X ONCE PO Last administered on 02/05/20at 08:26; Start 02/05/20 at 07:45; Stop 02/05/20 at 07:46; Status DC Midazolam HCl 100 mg/Sodium Chloride 100 ml @ 1 mls/hr CONT PRN IV . Last administered on 02/15/20at 11:14; Start 02/05/20 at 10:00 Methylprednisolone Sodium Succinate (SOLU-Medrol 40MG VIAL) 40 mg Q8HRS IV Last administered on 02/15/20at 06:06; Start 02/05/20 at 14:00 Hydralazine HCl (Apresoline Inj) 10 mg PRN Q4HRS PRN IVP ELEVATED BP, SEE COMMENTS Last administered on 02/09/20at 02:15; Start 02/05/20 at 17:00; Stop 02/09/20 at 09:08; Status DC Fentanyl Citrate 55 ml @ 1.98 mls/hr CONT PRN IV SEE PROTOCOL Last administered on 02/15/20at 03:45; Start 02/06/20 at 11:00 Furosemide (Lasix) 20 mg 1X ONCE IVP Last administered on 02/06/20at 14:08; Start 02/06/20 at 14:00; Stop 02/06/20 at 14:01; Status DC Phenylephrine HCl 50 mg/Sodium Chloride 255 ml @ 13.372 mls/ hr CONT PRN IV SEE I/O RECORD Last administered on 02/07/20at 05:51; Start 02/07/20 at 05:45 Furosemide (Lasix) 20 mg 1X ONCE IVP Last administered on 02/07/20at 13:12; Start 02/07/20 at 13:15; Stop 02/07/20 at 13:16; Status DC Nicardipine HCl 50 mg/Sodium Chloride 250 ml @ 25 mls/hr CONT PRN IV SEE I/O RECORD Last administered on 02/13/20at 15:05; Start 02/08/20 at 10:15 Potassium Chloride/Water 100 ml @ 100 mls/hr Q1H IV Last administered on 02/08/20at 18:17; Start 02/08/20 at 16:00; Stop 02/08/20 at 17:59; Status DC Metoprolol Tartrate (Lopressor Vial) 5 mg Q6HRS IVP Last administered on 02/10/20at 11:56; Start 02/08/20 at 18:00; Stop 02/10/20 at 15:23; Status DC Hydralazine HCl (Apresoline Inj) 10 mg PRN Q4HRS PRN IVP ELEVATED BP, SEE COMMENTS Last administered on 02/15/20at 02:05; Start 02/08/20 at 17:15 Lorazepam 40 mg/ Sodium Chloride 270 ml @ 0 mls/hr CONT PRN IV SEE PROTOCOL Last administered on 02/15/20at 11:55; Start 02/09/20 at 09:00 Sodium Bicarbonate (Sodium Bicarb Adult 8.4% Syr) 100 meq 1X ONCE IV Last administered on 02/09/20at 09:18; Start 02/09/20 at 09:00; Stop 02/09/20 at 09:03; Status DC Potassium Chloride/Water 100 ml @ 100 mls/hr 1X ONCE IV Last administered on 02/09/20at 11:35; Start 02/09/20 at 11:00; Stop 02/09/20 at 11:59; Status DC Vecuronium Platter 50 mg/ Miscellaneous 50 ml @ 4.464 mls/ hr CONT PRN IV SEE I/O RECORD Last administered on 02/15/20at 05:02; Start 02/09/20 at 12:15 Albumin Human 250 ml @ 62.5 mls/hr 1X ONCE IV Last administered on 02/10/20at 08:56; Start 02/10/20 at 08:45; Stop 02/10/20 at 12:44; Status DC Sodium Bicarbonate (Sodium Bicarb Adult 8.4% Syr) 100 meq 1X ONCE IV Last administered on 02/10/20at 08:56; Start 02/10/20 at 08:45; Stop 02/10/20 at 08:46; Status DC Furosemide (Lasix) 40 mg 1X ONCE IVP Last administered on 02/10/20at 10:57; Start 02/10/20 at 10:45; Stop 02/10/20 at 10:46; Status DC Insulin Glargine (Lantus Syringe) 24 unit BID SQ Last administered on 02/11/20at 09:52; Start 02/10/20 at 21:00; Stop 02/11/20 at 13:31; Status DC Isosorbide Dinitrate (Isordil) 20 mg TID PO Last administered on 02/11/20at 07:55; Start 02/10/20 at 21:00; Stop 02/11/20 at 09:55; Status DC Labetalol HCl (Normodyne Iv Push) 20 mg PRN Q4HRS PRN IVP HYPERTENSION, 2ND CHOICE; Start 02/10/20 at 15:30; Stop 02/12/20 at 09:16; Status DC Metoprolol Tartrate (Lopressor Vial) 10 mg Q6HRS IVP Last administered on 02/12/20at 05:51; Start 02/10/20 at 18:00; Stop 02/12/20 at 09:16; Status DC Metoprolol Tartrate (Lopressor Vial) 5 mg 1X ONCE IVP Last administered on 02/10/20at 15:46; Start 02/10/20 at 15:30; Stop 02/10/20 at 15:31; Status DC Isosorbide Dinitrate (Isordil) 10 mg 1X ONCE PO Last administered on 02/10/20at 15:44; Start 02/10/20 at 15:30; Stop 02/10/20 at 15:31; Status DC Isosorbide Dinitrate (Isordil) 40 mg Q8HRS PO Last administered on 02/15/20at 06:07; Start 02/11/20 at 14:00 Hydralazine HCl (Apresoline) 50 mg Q8HRS PO Last administered on 02/12/20at 05:52; Start 02/11/20 at 14:00; Stop 02/12/20 at 09:16; Status DC Clonidine HCl (Catapres) 0.1 mg PRN Q1HR PRN PO HYPERTENSION Last administered on 02/14/20at 08:25; Start 02/11/20 at 10:00 Furosemide (Lasix) 40 mg DAILY IVP Last administered on 02/15/20at 08:23; Start 02/11/20 at 11:00 Insulin Glargine (Lantus Syringe) 28 unit BID SQ Last administered on 02/14/20at 08:22; Start 02/11/20 at 21:00; Stop 02/15/20 at 11:11; Status DC Heparin Sodium/ Dextrose 250 ml @ 16.4 mls/hr CONT PRN IV PER PROTOCOL Last administered on 02/15/20at 02:52; Start 02/11/20 at 16:30 Heparin Sodium (Porcine) (Heparin Sodium) 3,100 unit PRN Q6HRS PRN IV FOR UFH LEVEL LESS THAN 0.2; Start 02/11/20 at 16:30 Heparin Sodium (Porcine) (Heparin Sodium) 1,550 unit PRN Q6HRS PRN IV FOR UFH LEVEL 0.2 - 0.29; Start 02/11/20 at 16:30 Hydralazine HCl (Apresoline) 100 mg Q8HRS PO Last administered on 02/15/20at 06:07; Start 02/12/20 at 10:00 Labetalol HCl (Trandate) 400 mg BID PO Last administered on 02/15/20at 08:24; Start 02/12/20 at 21:00 Furosemide (Lasix) 40 mg 1X ONCE IVP Last administered on 02/12/20at 10:10; Start 02/12/20 at 09:30; Stop 02/12/20 at 09:31; Status DC Dextrose/Sodium Chloride 1,000 ml @ 50 mls/hr 1X ONCE IV Last administered on 02/15/20at 02:50; Start 02/15/20 at 02:30; Stop 02/15/20 at 22:29 Info (Anti-Coagulation Monitoring By Pharmacy) 1 each PRN DAILY PRN MC SEE COMMENTS; Start 02/15/20 at 09:15 Insulin Glargine (Lantus Syringe) 20 unit BID SQ ; Start 02/15/20 at 21:00 Active Scripts Active Aspirin 325 Mg Tablet 325 Mg PO DAILY [id number] 50-325-40 (Butalb/Acetaminophen/Caffeine) 1 Each Tablet 1-2 Tab PO PRN Q4HRS PRN MDD 6 tablets 2 Days Ondansetron Odt (Ondansetron) 4 Mg Tab.rapdis 1 Tab PO PRN Q6-8HRS PRN [id number] 50-325-40 (Butalb/Acetaminophen/Caffeine) 1 Each Tablet 1 Each PO Q6HRS PRN Reported Venlafaxine Hcl Er (Venlafaxine Hcl) 150 Mg Tab.er.24 1 Tab PO BID Novolog (Insulin Aspart) 100 Unit/1 Ml Cartridge 25 Unit SQ TIDWMEALS Metformin Hcl 1,000 Mg Tablet 1,000 Mg PO BIDWMEALS Zofran (Ondansetron Hcl) 4 Mg Tablet 1 Tab PO Q6HRS Terazosin Hcl 2 Mg Capsule 2 Cap PO QHS Lantus Solostar (Insulin Glargine,Hum.rec.anlog) 100 Unit/1 Ml Insuln.pen 80 Unit SQ QHS Metoprolol Tartrate 50 Mg Tablet 1 Tab PO BID Omeprazole 20 Mg Capsule.dr 20 Mg PO BID Lisinopril 40 Mg Tablet 1 Tab PO DAILY Imitrex (Sumatriptan Succinate) 50 Mg Tablet 50 Mg PO PRN BID PRN Hydrochlorothiazide Tablet (Hydrochlorothiazide) 12.5 Mg Tablet 25 Mg PO DAILY Meclizine Hcl 25 Mg Tablet 25 Mg PO PRN TID PRN 90 Days Patanol (Olopatadine Hcl) 5 Ml Drops 1 Drop EACHEYE BID Atorvastatin Calcium 20 Mg Tablet 1 Tab PO DAILY Isosorbide Mononitrate 20 Mg Tablet 20 Mg PO BID Amlodipine Besylate 10 Mg Tablet 10 Mg PO HS Isosorbide Dinitrate 30 Mg Tablet 20 Mg PO DAILY Hydrochlorothiazide Tablet (Hydrochlorothiazide) 25 Mg Tablet 25 Mg PO DAILY Vitals/I & O Vital Sign - Last 24 Hours 02/14/20 02/14/20 02/14/20 02/14/20 13:00 14:00 15:00 15:02 Pulse 82 80 80 80 Resp B/P (MAP) 142/62 (88) 150/64 (92) 144/62 (89) 146/63 Pulse Ox 96 96 96 O2 Delivery Ventilator Ventilator Ventilator 02/14/20 02/14/20 02/14/20 02/14/20 15:03 16:00 16:00 16:00 Temp 97.6 97.6 Pulse 80 80 Resp 28 B/P (MAP) 146/63 160/66 (97) Pulse Ox 97 O2 Delivery Mechanical Ventilator Ventilator 02/14/20 02/14/20 02/14/20 02/14/20 16:23 17:00 18:00 19:00 Pulse 79 79 79 Resp B/P (MAP) 155/66 (95) 165/69 (101) 182/76 (111) Pulse Ox 96 97 97 98 O2 Delivery Ventilator Ventilator Ventilator Ventilator 02/14/20 02/14/20 02/14/20 02/14/20 19:30 20:00 20:00 20:00 Temp 96.7 96.7 Pulse 83 Resp 28 B/P (MAP) 187/73 (111) Pulse Ox 98 98 O2 Delivery Ventilator Mechanical Ventilator Ventilator 02/14/20 02/14/20 02/14/20 02/14/20 21:00 21:57 21:57 21:58 Pulse 85 85 85 85 Resp 28 B/P (MAP) 183/67 (105) 183/67 183/67 183/67 Pulse Ox 99 O2 Delivery Ventilator 02/14/20 02/14/20 02/15/20 02/15/20 22:00 23:00 00:00 00:00 Temp 98.2 98.2 Pulse 83 83 83 Resp 28 28 28 B/P (MAP) 162/67 (98) 149/58 (88) 154/60 (91) Pulse Ox 99 95 98 O2 Delivery Ventilator Ventilator Ventilator 02/15/20 02/15/20 02/15/20 02/15/20 00:00 00:10 01:00 02:00 Pulse 86 95 Resp 28 B/P (MAP) 171/64 (99) 199/74 (115) Pulse Ox 98 97 97 O2 Delivery Mechanical Ventilator Ventilator Ventilator Ventilator 02/15/20 02/15/20 02/15/20 02/15/20 02:05 03:00 03:45 04:00 Temp 98.1 98.1 Pulse 95 91 88 Resp 28 28 28 B/P (MAP) 199/75 135/60 (85) 111/51 (71) Pulse Ox 93 93 91 O2 Delivery Ventilator Ventilator 02/15/20 02/15/20 02/15/20 02/15/20 04:00 04:00 04:15 04:33 Resp 28 B/P (MAP) Pulse Ox 91 98 O2 Delivery Mechanical Ventilator Ventilator 02/15/20 02/15/20 02/15/20 02/15/20 05:00 06:00 06:07 06:07 Pulse 86 86 86 86 Resp 28 28 B/P (MAP) 117/54 (75) 124/54 (77) 124/54 124/54 Pulse Ox 92 93 O2 Delivery Ventilator Ventilator 02/15/20 02/15/20 02/15/20 02/15/20 07:00 07:26 08:00 08:00 Pulse 84 Resp 28 B/P (MAP) 128/56 (80) 106/59 (75) Pulse Ox 93 97 O2 Delivery Ventilator Ventilator Mechanical Ventilator 02/15/20 02/15/20 02/15/20 02/15/20 08:00 08:00 08:24 09:00 Temp 97.5 97.5 Pulse 82 83 82 Resp 28 28 B/P (MAP) 122/56 (78) 112/53 114/52 (72) Pulse Ox 91 91 O2 Delivery Ventilator Ventilator 02/15/20 11:26 O2 Delivery Ventilator Intake and Output 02/14/20 02/14/20 02/15/20 15:00 23:00 07:00 Intake Total 350 ml 2905.7 ml 600 ml Output Total 350 ml 625 ml 500 ml Balance 0 ml 2280.7 ml 100 ml Justicifation of Admission Dx: Justifications for Admission: Justification of Admission Dx: Yes Sepsis: Altered Mental Status IDALMIS PARTIDA MD Feb 15, 2020 12:29
--- NOTE | 2020-02-15 16:00 | NUR ---
Dr. Stubbs on the unit. Informed him of decreased urine output today of not more than 30 cc for the day. Order for 500 cc bolus NS.
[2020-02-15] MEDS ORDERED: IV NORMAL SALINE 500ML BAG 500 ML IV ONE (16:15)
[2020-02-15] MEDS ORDERED: ALBUMIN HUMAN 25% 100 ML IV ONE (18:15)
--- NOTE | 2020-02-15 18:30 | NUR ---
consult called to nephrology answering service
[2020-02-15] MEDS: ATORVASTATIN CALCIUM 20 MG TABLET PO SCH (21:35)
--- NOTE | 2020-02-15 23:29 | NUR ---
At 2305 pt is desating in the 70s and mid 80s despite being suctioned and peep turned up 20 by RT @ 2100. RT paged at 2307 to come and reassess pt. RT showed up and suctioned pt but sats are still in mid 80s.
--- NOTE | 2020-02-15 23:45 | NUR ---
Called Dr. Stubbs and updated pt condition of severe sudden drop in 02sats in the low 80s and upper 70s. Dr. Stubbs is aware of pt's condition and poor prognosis. He states to alert the family, RT can try inversing the ration to 2:1 and see if that helps. Order a stat chest xray.continue to monitor.
[2020-02-16] VITALS (23 sets, daily range): BP systolic 104–170; BP diastolic 58–82
[2020-02-16] MEDS ORDERED: ALBUMIN HUMAN 25% 100 ML IV ONE (00:30)
[2020-02-16] MEDS: INSULIN LISPRO 300 UNITS/3 ML VIAL. SQ SCH ×5 (00:41→23:14)
[2020-02-16] MEDS: PIPERACILLIN/TAZOBACTAM 3.375 GM in IV NORMAL SALINE 50ML 50 ML IV SCH ×4 (00:53→18:04)
--- NOTE | 2020-02-16 01:07 | RAD ---
AP chest. HISTORY: Sudden change in condition AP view was taken of the chest. Comparison is made with the recent study. Endotracheal tube is in good position. Central line extends to the right atrium. NG tube extends into the stomach. There are diffuse bilateral infiltrates. X-rays appears similar to the study from February 12. There is prominence of the aortic arch similar to the recent study. IMPRESSION: 1. Persistent diffuse bilateral infiltrates. 2. Prominent aortic arch. Electronically signed by: Anadn Mosley MD (02/16/2020 1:04 AM) [id number]
[2020-02-16] MEDS: HEPARIN 25,000UTS/250ML PREMIX 250 ML IV PRN (03:00)
[2020-02-16] MEDS: ISOSORBIDE DINITRATE 10 MG TABLET. PO SCH ×3 (05:30→21:46)
[2020-02-16] MEDS: methylPREDNISolone SOD SUCC PF 40 MG/ML VIAL. IV SCH ×3 (05:30→21:47)
[2020-02-16] MEDS: fentaNYL HIGH DOSE PCA 55 ML IV PRN (06:57)
[2020-02-16] MEDS: LORazepam 40 MG in IV NORMAL SALINE 250ML 250 ML IV PRN ×2 (07:48→20:43)
--- NOTE | 2020-02-16 08:11 | PDOC ---
PULMONARY PROGRESS NOTES Subjective Currently A/C mode -- 20 of PEEP 100% FiO2-- sedated with versed, Fent, and VEC gtt for paralysis Off of Cardene Vitals Vital Signs Date Time Temp Pulse Resp B/P (MAP) Pulse Ox O2 Delivery O2 Flow Rate FiO2 02/16/20 07:27 Ventilator 02/16/20 07:26 91 02/16/20 06:00 85 28 158/78 (104) 02/16/20 05:00 96.2 96.2 Comments ros unable to obtain sedated on vent Visual exam performed due to COVID-19 pandemic Patient appears to be comfortable in sync with the ventilator, no significant Labs Laboratory Tests Test 02/14/20 08:50 02/14/20 15:50 02/14/20 17:35 02/14/20 18:03 Heparin Anti-Xa Act, Unfractionated 0.87 IU/mL (0.30-0.70) 0.80 IU/mL (0.30-0.70) Sodium Level 142 mmol/L (136-145) Potassium Level 4.7 mmol/L (3.5-5.1) Chloride Level 106 mmol/L (98-107) Carbon Dioxide Level 22 mmol/L (21-32) Anion Gap 14 (6-14) Blood Urea Nitrogen 100 mg/dL (8-26) Creatinine 2.7 mg/dL (0.7-1.3) Estimated GFR (Cockcroft-Gault) 30.8 Glucose Level 125 mg/dL (70-99) Calcium Level 7.6 mg/dL (8.5-10.1) Magnesium Level 2.4 mg/dL (1.8-2.4) Glucose (Fingerstick) 53 mg/dL (70-99) 106 mg/dL (70-99) Test 02/14/20 22:00 02/14/20 23:56 02/15/20 00:36 02/15/20 01:22 Heparin Anti-Xa Act, Unfractionated 0.37 IU/mL (0.30-0.70) Glucose (Fingerstick) 46 mg/dL (70-99) 64 mg/dL (70-99) 82 mg/dL (70-99) Test 02/15/20 04:00 02/15/20 06:11 02/15/20 08:09 02/15/20 11:40 White Blood Count 26.1 x10^3/uL (4.0-11.0) Red Blood Count 3.32 x10^6/uL (4.30-5.70) Hemoglobin 9.6 g/dL (13.0-17.5) Hematocrit 29.5 % (39.0-53.0) Mean Corpuscular Volume 89 fL (79-100) Mean Corpuscular Hemoglobin 29 pg (25-35) Mean Corpuscular Hemoglobin Concent 33 g/dL (31-37) Red Cell Distribution Width 15.3 % (11.5-14.5) Platelet Count 165 x10^3/uL (140-400) Heparin Anti-Xa Act, Unfractionated 0.27 IU/mL (0.30-0.70) 0.65 IU/mL (0.30-0.70) Sodium Level 142 mmol/L (136-145) Potassium Level 4.9 mmol/L (3.5-5.1) Chloride Level 109 mmol/L (98-107) Carbon Dioxide Level 19 mmol/L (21-32) Anion Gap 14 (6-14) Blood Urea Nitrogen 107 mg/dL (8-26) Creatinine 2.8 mg/dL (0.7-1.3) Estimated GFR (Cockcroft-Gault) 29.5 BUN/Creatinine Ratio 38 (6-20) Glucose Level 90 mg/dL (70-99) Calcium Level 6.9 mg/dL (8.5-10.1) Total Bilirubin 0.3 mg/dL (0.2-1.0) Aspartate Amino Transf (AST/SGOT) 27 U/L (15-37) Alanine Aminotransferase (ALT/SGPT) 23 U/L (16-63) Alkaline Phosphatase 185 U/L (46-116) Total Protein 4.4 g/dL (6.4-8.2) Albumin 1.6 g/dL (3.4-5.0) Albumin/Globulin Ratio 0.6 (1.0-1.7) Glucose (Fingerstick) 91 mg/dL (70-99) O2 Saturation 84 % (92-99) Arterial Blood pH 7.21 (7.35-7.45) Arterial Blood pCO2 at Patient Temp 43 mmHg (35-46) Arterial Blood pO2 at Patient Temp 57 mmHg (75-108) Arterial Blood HCO3 17 mmol/L (21-28) Arterial Blood Base Excess -10 mmol/L (-3-3) FiO2 100 Test 02/15/20 11:52 02/15/20 18:00 02/15/20 18:03 02/16/20 00:07 Glucose (Fingerstick) 115 mg/dL (70-99) 120 mg/dL (70-99) 189 mg/dL (70-99) Heparin Anti-Xa Act, Unfractionated 0.37 IU/mL (0.30-0.70) Test 02/16/20 05:37 02/16/20 06:00 Glucose (Fingerstick) 216 mg/dL (70-99) Heparin Anti-Xa Act, Unfractionated 0.61 IU/mL (0.30-0.70) Laboratory Tests Test 02/15/20 11:40 02/15/20 11:52 02/15/20 18:00 02/15/20 18:03 Heparin Anti-Xa Act, Unfractionated 0.65 IU/mL (0.30-0.70) 0.37 IU/mL (0.30-0.70) Glucose (Fingerstick) 115 mg/dL (70-99) 120 mg/dL (70-99) Test 02/16/20 00:07 02/16/20 05:37 02/16/20 06:00 Glucose (Fingerstick) 189 mg/dL (70-99) 216 mg/dL (70-99) Heparin Anti-Xa Act, Unfractionated 0.61 IU/mL (0.30-0.70) Medications Active Scripts Medications Dose Route/Sig Max Daily Dose Days Date Category Aspirin 325 Mg Tablet 325 Mg PO DAILY 03/20/19 Rx Venlafaxine Hcl Er (Venlafaxine Hcl) 150 Mg Tab.er.24 1 Tab PO BID 03/18/19 Reported Novolog (Insulin Aspart) 100 Unit/1 Ml Cartridge 25 Unit SQ TIDWMEALS 03/18/19 Reported Metformin Hcl 1,000 Mg Tablet 1,000 Mg PO BIDWMEALS 03/18/19 Reported Zofran (Ondansetron Hcl) 4 Mg Tablet 1 Tab PO Q6HRS 03/18/19 Reported Terazosin Hcl 2 Mg Capsule 2 Cap PO QHS 03/18/19 Reported Lantus Solostar (Insulin Glargine,Hum.rec.anlog) 100 Unit/1 Ml Insuln.pen 80 Unit SQ QHS 03/18/19 Reported Metoprolol Tartrate 50 Mg Tablet 1 Tab PO BID 03/18/19 Reported Omeprazole 20 Mg Capsule.dr 20 Mg PO BID 03/18/19 Reported Lisinopril 40 Mg Tablet 1 Tab PO DAILY 03/18/19 Reported Jaupne-Nnjtketf-Axwi 50-325-40 (Butalb/Acetaminophen/Caffeine) 1 Each Tablet 1-2 Tab PO PRN Q4HRS PRN MDD 6 tablets 2 07/30/18 Rx Imitrex (Sumatriptan Succinate) 50 Mg Tablet 50 Mg PO PRN BID PRN 01/15/15 Reported Hydrochlorothiazide Tablet (Hydrochlorothiazide) 12.5 Mg Tablet 25 Mg PO DAILY 01/15/15 Reported Meclizine Hcl 25 Mg Tablet 25 Mg PO PRN TID PRN 90 01/15/15 Reported Patanol (Olopatadine Hcl) 5 Ml Drops 1 Drop EACHEYE BID 01/11/15 Reported Atorvastatin Calcium 20 Mg Tablet 1 Tab PO DAILY 01/11/15 Reported Isosorbide Mononitrate 20 Mg Tablet 20 Mg PO BID 08/22/13 Reported Amlodipine Besylate 10 Mg Tablet 10 Mg PO HS 08/22/13 Reported Isosorbide Dinitrate 30 Mg Tablet 20 Mg PO DAILY 07/15/19 Reported Hydrochlorothiazide Tablet (Hydrochlorothiazide) 25 Mg Tablet 25 Mg PO DAILY 07/15/19 Reported Ondansetron Odt (Ondansetron) 4 Mg Tab.rapdis 1 Tab PO PRN Q6-8HRS PRN 01/31/19 Rx Egceoi-Nsuldffr-Popb 50-325-40 (Butalb/Acetaminophen/Caffeine) 1 Each Tablet 1 Each PO Q6HRS PRN 01/31/19 Rx Comments CXR: IMPRESSION: 1. Bilateral airspace disease, not significantly changed. 2. Stable position of tubes and lines.. Impression . 1. Acute hypoxic respiratory failure secondary to COVID-19 pneumonia and ARDS 2. COVID-19 sepsis. 3. Abnormal chest x-ray 4. 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 5. Diabetic ketoacidosis, now anion gap closed and being monitored by PCP.BS better 6. Hypernatremia, s/p IV fluids. resolved 7. Hypertension/ cardene 8. Possible acute pulmonary emboli Plan . Spoke with son and daughter, informed them that the father was critically ill and would more than likely not survive Daughter informed me that the mother will be in tomorrow with the aeronautical drafter, at that point I will talk to the regarding the severity of illness, and approach DNR Continue current ventilator support A/C mode PEEP increase PEEP to 20 Cont. heparin gtt for presumptive PE, no major signs of bleeding Broad-spectrum antibiotics PRN Lasix Status post convalescent plasma status post Tocilizumab on 02/03/2020 FULL code, will discuss will family D/W RN and RT Total cumulative critical care time of 30 minutes, reviewing data, chest x-ray, and lab, and formulating a plan. KIMBERLY LOPEZ MD Feb 16, 2020 08:11
[2020-02-16 08:37] LABS: BASE EXCESS ABG -12 mmol/L (-3-3); HCO3 ABG 15 mmol/L (21-28); PCO2 ABG 40 mmHg (35-46); SAT O2 ABG 78 % (92-99)
[2020-02-16] MEDS: MIDAZOLAM HCL 100 MG in IV NORMAL SALINE 100ML 100 ML IV PRN ×3 (08:38→21:44)
[2020-02-16] MEDS: PANTOPRAZOLE IV PUSH 40 MG VIAL. IVP SCH (08:39)
[2020-02-16] MEDS: ELECTROLYTE (ICU) PROTOCOL. MC SCH (08:40)
[2020-02-16] MEDS: FUROSEMIDE 40 MG/4 ML VIAL. IVP SCH (08:40)
[2020-02-16] MEDS: VENLAFAXINE 75 MG TABLET. PO SCH ×2 (08:41→21:45)
[2020-02-16] MEDS: ASPIRIN 325 MG TABLET PO SCH (08:41)
[2020-02-16 08:42] LABS: PO2 ABG 50 mmHg (75-108)
[2020-02-16 08:43] LABS: FIO2 ABG 100% + 20 PEEP
[2020-02-16] MEDS: LABETALOL HCL 200 MG TABLET PO SCH ×2 (08:43→21:45)
[2020-02-16] MEDS: SENNOSIDES/DOCUSATE 8.6/50MG TABLET. PO SCH ×2 (08:44→20:43)
[2020-02-16] MEDS: DOCUSATE 100 MG/10 ML SOLUTION. PO SCH (08:44)
[2020-02-16] MEDS: INSULIN GLARGINE SYRINGE. SQ SCH ×2 (08:53→21:00)
[2020-02-16] MEDS: KETOTIFEN FUMARATE 0.025% OPHTH SOLUTION BOTTLE. OU SCH ×2 (09:00→21:39)
--- NOTE | 2020-02-16 11:28 | NUR ---
SS following up with discharge planning. SS reviewed pt chart and discussed with RNThalia. Pt COVID19 positive and remains on the vent at this time. Pt on IV Zosyn and Heparin drip. SS will continue to follow for discharge planning.
[2020-02-16] MEDS: VECURONIUM BROMIDE 50 MG in TOTAL VOLUME 50 ML IV PRN (11:54)
--- NOTE | 2020-02-16 13:50 | PDOC ---
CARDIO Progress Notes Date and Time Date of Service 02/16/2020 Time of Evaluation 1300 Subjective Subjective: Other Vitals Vitals Vital Signs Date Time Temp Pulse Resp B/P (MAP) Pulse Ox O2 Delivery O2 Flow Rate FiO2 02/16/20 13:00 77 28 120/64 (82) 95 Ventilator 02/16/20 12:00 96.3 96.3 Weight Weight [ ] Input and Output Intake and Output Intake and Output 02/16/20 07:00 Intake Total 3900.42 ml Output Total 290 ml Balance 3610.42 ml Intake IV Total 2054.42 ml Tube Feeding 1546 ml Other 300 ml Output Urine Total 290 ml # Bowel Movements 1 Laboratory Labs Laboratory Tests Test 02/15/20 18:00 02/15/20 18:03 02/16/20 00:07 02/16/20 05:37 Heparin Anti-Xa Act, Unfractionated 0.37 IU/mL (0.30-0.70) Glucose (Fingerstick) 120 mg/dL (70-99) 189 mg/dL (70-99) 216 mg/dL (70-99) Test 02/16/20 06:00 02/16/20 08:30 02/16/20 08:52 02/16/20 11:57 Heparin Anti-Xa Act, Unfractionated 0.61 IU/mL (0.30-0.70) O2 Saturation 78 % (92-99) Arterial Blood pH 7.20 (7.35-7.45) Arterial Blood pCO2 at Patient Temp 40 mmHg (35-46) Arterial Blood pO2 at Patient Temp 50 mmHg (75-108) Arterial Blood HCO3 15 mmol/L (21-28) Arterial Blood Base Excess -12 mmol/L (-3-3) FiO2 100% + 20 peep Glucose (Fingerstick) 221 mg/dL (70-99) 245 mg/dL (70-99) Microbiology Micro Microbiology 02/10/20 Urine Culture - Final, Complete 02/02/20 Blood Culture - Final, Complete NO GROWTH AFTER 5 DAYS Physical Exam Chest: Symmetric LUNGS: Other (intubated with vent) Heart: RRR (SR with no significant ectopies) Abdomen: Other (obese) Extremities: Other (peripheral edema) Neurology: other (sedated) Assessment Assessment 1. Acute respiratory failure secondary to COVID PNA, intubated/vent PEEP 20 2. Leukocytosis/sepsis 3. CHRISTIANNE; worsening 4. Hypertensive urgency; better controlled 6. Hyperlipidemia 7. DM2: labile BG per PCP 8. Hypokalemia: resolved 9. Prior CVA 10. H/o seizures 11. Acute CHF with possible diastolic dysfunction with ARDS and significant volume repletion. 12. Anasarca Recommendations Continue BP regimen. Worsening with multiorgan failure, poor prognosis. Family meeting in AM Ongoing treatment of COVID PNA, ARDS as per pulm, IM Supportive care from a CV standpoint. Justicifation of Admission Dx: Justifications for Admission: Justification of Admission Dx: Yes Sepsis: Altered Mental Status ADAMA GUZMAN ALLIGATOR SHEAR OPERATOR Feb 16, 2020 13:50
[2020-02-16 16:02] LABS: BASE EXCESS ABG -12 mmol/L (-3-3); HCO3 ABG 16 mmol/L (21-28); PCO2 ABG 43 mmHg (35-46); PO2 ABG 55 mmHg (75-108); SAT O2 ABG 83 % (92-99)
[2020-02-16 16:03] LABS: CORRECTED PCO2 ABG 38 mmHg; CORRECTED PH ABG 7.23; CORRECTED PO2 ABG 46 mmHg
--- NOTE | 2020-02-16 16:41 | NUR ---
and Son had family meeting with Dr. Stubbs @ 1600. allowed in the room with proper PPE. given proper PPE. Son on the outside of room with mask in place.
[2020-02-16 17:03] LABS: FIO2 ABG 100% + 20 PEEP
--- NOTE | 2020-02-16 17:31 | NUR ---
left pt's room and this RN helped her out of her PPE. and son had multiple questions for this RN. Son states that wants to talk to family tonight and then probably take pt off ventilator tomorrow 02/16. Pt will remain full code after an extensive discussion about what happens during a code and the probability of pt making it through. Family understands. Son requested that we call him tonight if pt's condition changes.
--- NOTE | 2020-02-16 20:58 | NUR ---
Spoke to pt's son Chauncey who is also the the family bank representative @ 193. Son states that after discussion with his mother and all of his family, they would like change his CODE status to change to DNR overnight. He also states that family would like to be present at the time he is extubated and made palliative care tomorrow 02/17/20 @ [address] Schultz paged and called back @2028 where he was informed of the family's wishes and agrees to their plan of code status change and plan to extubate. CODE status change by Inocencio WEBBER & Verified by Rena Beaver RN and approved by Dr. Schultz. Dr. Schultz will be present in the am tomorrow to talk to Chey (monitoring manager) about setting up extubation of patient and visitation approval for his family.
[2020-02-16] MEDS: ATORVASTATIN CALCIUM 20 MG TABLET PO SCH (21:45)
[2020-02-16] MEDS: ENOXAPARIN 40 MG/0.4 ML SYRINGE. SQ SCH (21:46)
[2020-02-17] VITALS (12 sets, daily range): BP systolic 0–194; BP diastolic 0–90
[2020-02-17] MEDS: VECURONIUM BROMIDE 50 MG in TOTAL VOLUME 50 ML IV PRN
[2020-02-17] MEDS: INSULIN LISPRO 300 UNITS/3 ML VIAL. SQ SCH (05:06)
[2020-02-17] MEDS: PANTOPRAZOLE IV PUSH 40 MG VIAL. IVP SCH (06:06)
[2020-02-17] MEDS: ISOSORBIDE DINITRATE 10 MG TABLET. PO SCH (06:06)
[2020-02-17] MEDS: methylPREDNISolone SOD SUCC PF 40 MG/ML VIAL. IV SCH (06:06)
[2020-02-17] MEDS: PIPERACILLIN/TAZOBACTAM 3.375 GM in IV NORMAL SALINE 50ML 50 ML IV SCH ×2 (06:07)
[2020-02-17] MEDS: ELECTROLYTE (ICU) PROTOCOL. MC SCH (07:41)
[2020-02-17] MEDS: DOCUSATE 100 MG/10 ML SOLUTION. PO SCH (07:55)
[2020-02-17] MEDS: SENNOSIDES/DOCUSATE 8.6/50MG TABLET. PO SCH (07:55)
[2020-02-17] MEDS: LORazepam 40 MG in IV NORMAL SALINE 250ML 250 ML IV PRN (08:00)
[2020-02-17] MEDS: ENOXAPARIN 40 MG/0.4 ML SYRINGE. SQ SCH (08:01)
[2020-02-17] MEDS: MIDAZOLAM HCL 100 MG in IV NORMAL SALINE 100ML 100 ML IV PRN (08:01)
[2020-02-17] MEDS: VENLAFAXINE 75 MG TABLET. PO SCH (08:02)
[2020-02-17] MEDS: FUROSEMIDE 40 MG/4 ML VIAL. IVP SCH (08:02)
[2020-02-17] MEDS: ASPIRIN 325 MG TABLET PO SCH (08:02)
[2020-02-17] MEDS: LABETALOL HCL 200 MG TABLET PO SCH (08:02)
[2020-02-17] MEDS: INSULIN GLARGINE SYRINGE. SQ SCH (08:04)
--- NOTE | 2020-02-17 08:35 | PDOC ---
PULMONARY PROGRESS NOTES Subjective Currently A/C mode -- 20 of PEEP 100% FiO2-- sedated with versed, Fent, and VEC gtt for paralysis Off of Cardene Vitals Vital Signs Date Time Temp Pulse Resp B/P (MAP) Pulse Ox O2 Delivery O2 Flow Rate FiO2 02/17/20 08:02 109 152/74 02/17/20 07:00 28 98 Ventilator 02/17/20 04:00 98.8 98.8 Comments ros unable to obtain sedated on vent Visual exam performed due to COVID-19 pandemic Patient appears to be comfortable in sync with the ventilator, no significant Labs Laboratory Tests Test 02/15/20 11:40 02/15/20 11:52 02/15/20 18:00 02/15/20 18:03 Heparin Anti-Xa Act, Unfractionated 0.65 IU/mL (0.30-0.70) 0.37 IU/mL (0.30-0.70) Glucose (Fingerstick) 115 mg/dL (70-99) 120 mg/dL (70-99) Test 02/16/20 00:07 02/16/20 05:37 02/16/20 06:00 02/16/20 08:30 Glucose (Fingerstick) 189 mg/dL (70-99) 216 mg/dL (70-99) Heparin Anti-Xa Act, Unfractionated 0.61 IU/mL (0.30-0.70) O2 Saturation 78 % (92-99) Arterial Blood pH 7.20 (7.35-7.45) Arterial Blood pCO2 at Patient Temp 40 mmHg (35-46) Arterial Blood pO2 at Patient Temp 50 mmHg (75-108) Arterial Blood HCO3 15 mmol/L (21-28) Arterial Blood Base Excess -12 mmol/L (-3-3) FiO2 100% + 20 peep Test 02/16/20 08:52 02/16/20 11:57 02/16/20 16:00 02/16/20 18:08 Glucose (Fingerstick) 221 mg/dL (70-99) 245 mg/dL (70-99) 241 mg/dL (70-99) O2 Saturation 83 % (92-99) Arterial Blood pH 7.19 (7.35-7.45) Arterial Blood pH (Temp corrected) 7.23 Arterial Blood pCO2 at Patient Temp 43 mmHg (35-46) Arterial Blood pCO2 (Temp correct) 38 mmHg Arterial Blood pO2 at Patient Temp 55 mmHg (75-108) Arterial Blood pO2 (Temp corrected) 46 mmHg Arterial Blood HCO3 16 mmol/L (21-28) Arterial Blood Base Excess -12 mmol/L (-3-3) FiO2 100% + 20 peep Laboratory Tests Test 02/16/20 08:52 02/16/20 11:57 02/16/20 16:00 02/16/20 18:08 Glucose (Fingerstick) 221 mg/dL (70-99) 245 mg/dL (70-99) 241 mg/dL (70-99) O2 Saturation 83 % (92-99) Arterial Blood pH 7.19 (7.35-7.45) Arterial Blood pH (Temp corrected) 7.23 Arterial Blood pCO2 at Patient Temp 43 mmHg (35-46) Arterial Blood pCO2 (Temp correct) 38 mmHg Arterial Blood pO2 at Patient Temp 55 mmHg (75-108) Arterial Blood pO2 (Temp corrected) 46 mmHg Arterial Blood HCO3 16 mmol/L (21-28) Arterial Blood Base Excess -12 mmol/L (-3-3) FiO2 100% + 20 peep Medications Active Scripts Medications Dose Route/Sig Max Daily Dose Days Date Category Aspirin 325 Mg Tablet 325 Mg PO DAILY 03/20/19 Rx Venlafaxine Hcl Er (Venlafaxine Hcl) 150 Mg Tab.er.24 1 Tab PO BID 03/18/19 Reported Novolog (Insulin Aspart) 100 Unit/1 Ml Cartridge 25 Unit SQ TIDWMEALS 03/18/19 Reported Metformin Hcl 1,000 Mg Tablet 1,000 Mg PO BIDWMEALS 03/18/19 Reported Zofran (Ondansetron Hcl) 4 Mg Tablet 1 Tab PO Q6HRS 03/18/19 Reported Terazosin Hcl 2 Mg Capsule 2 Cap PO QHS 03/18/19 Reported Lantus Solostar (Insulin Glargine,Hum.rec.anlog) 100 Unit/1 Ml Insuln.pen 80 Unit SQ QHS 03/18/19 Reported Metoprolol Tartrate 50 Mg Tablet 1 Tab PO BID 03/18/19 Reported Omeprazole 20 Mg Capsule.dr 20 Mg PO BID 03/18/19 Reported Lisinopril 40 Mg Tablet 1 Tab PO DAILY 03/18/19 Reported Ljpgbe-Nwxxbosr-Ckbp 50-325-40 (Butalb/Acetaminophen/Caffeine) 1 Each Tablet 1-2 Tab PO PRN Q4HRS PRN MDD 6 tablets 2 07/30/18 Rx Imitrex (Sumatriptan Succinate) 50 Mg Tablet 50 Mg PO PRN BID PRN 01/15/15 Reported Hydrochlorothiazide Tablet (Hydrochlorothiazide) 12.5 Mg Tablet 25 Mg PO DAILY 01/15/15 Reported Meclizine Hcl 25 Mg Tablet 25 Mg PO PRN TID PRN 90 01/15/15 Reported Patanol (Olopatadine Hcl) 5 Ml Drops 1 Drop EACHEYE BID 01/11/15 Reported Atorvastatin Calcium 20 Mg Tablet 1 Tab PO DAILY 01/11/15 Reported Isosorbide Mononitrate 20 Mg Tablet 20 Mg PO BID 08/22/13 Reported Amlodipine Besylate 10 Mg Tablet 10 Mg PO HS 08/22/13 Reported Isosorbide Dinitrate 30 Mg Tablet 20 Mg PO DAILY 07/15/19 Reported Hydrochlorothiazide Tablet (Hydrochlorothiazide) 25 Mg Tablet 25 Mg PO DAILY 07/15/19 Reported Ondansetron Odt (Ondansetron) 4 Mg Tab.rapdis 1 Tab PO PRN Q6-8HRS PRN 01/31/19 Rx Zunzwh-Zibrjjci-Kkrc 50-325-40 (Butalb/Acetaminophen/Caffeine) 1 Each Tablet 1 Each PO Q6HRS PRN 01/31/19 Rx Comments CXR: IMPRESSION: 1. Bilateral airspace disease, not significantly changed. 2. Stable position of tubes and lines.. Impression . 1. Acute hypoxic respiratory failure secondary to COVID-19 pneumonia and ARDS 2. COVID-19 sepsis. 3. Abnormal chest x-ray 4. 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 5. Diabetic ketoacidosis, now anion gap closed and being monitored by PCP.BS be tter 6. Hypernatremia, s/p IV fluids. resolved 7. Hypertension/ cardene 8. Possible acute pulmonary emboli Plan . Spoke with son and daughter, informed them that the father was critically ill and would more than likely not survive Daughter informed me that the mother will be in tomorrow with the senior talent acquisition specialist, at that point I will talk to the regarding the severity of illness, and approach DNR Continue current ventilator support A/C mode PEEP increase PEEP to 20 Cont. heparin gtt for presumptive PE, no major signs of bleeding Broad-spectrum antibiotics PRN Lasix Status post convalescent plasma status post Tocilizumab on 02/03/2020 FULL code, will discuss will family D/W RN and RT Total cumulative critical care time of 30 minutes, reviewing data, chest x-ray, and lab, and formulating a plan. KIMBERLY LOPEZ MD Feb 17, 2020 08:35
[2020-02-17] MEDS: KETOTIFEN FUMARATE 0.025% OPHTH SOLUTION BOTTLE. OU SCH (09:00)
--- NOTE | 2020-02-17 11:19 | NUR ---
Patient was extubated with 2 family members at bedside at 1050. Zoran, son, was at bedside with another family member and was aiding in translation. At 1057 the patient became asystole and Jon Leal RN and Piper Govea RN auscultated for breath sounds and heart beat for 60 seconds. Upon completion of the 60 seconds the patient was found to not be breathing and heart sounds were not heard. Patient was cleaned up and family is being given time to say their goodbyes at bedside. MTN notified at 1115. See documentation for results and referral number. Will finish completing record when family is ready to leave.
--- NOTE | 2020-02-17 14:18 | PDOC3 ---
Discharge Summary Visit Information Date of Admission: Feb 02, 2020 Date of Discharge: Feb 17, 2020 Final Diagnosis Toxic and metabolic encephalopathy Sepsis with pulmonary focus most likely Suspect gram negative organism pneumonia POSITIVE COVID 19 infection On heparin drip due to suspected PE, will discuss with road consultant possibility of stopping erip in light of his multiple bleeding sites including ET tube and nose. 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 Diabetes mellitus type 2 insulin requiring/ DEC LANTUS dosing 02/14 Severe anion gap metabolic acidosis Problems Medical Problems: (1) Acute metabolic encephalopathy Status: Acute (2) Acute renal insufficiency Status: Acute (3) DKA (diabetic ketoacidoses) Status: Acute (4) Pneumonia Status: Acute (5) Respiratory failure with hypoxia Status: Acute (6) Suspected 2018 novel coronavirus infection Status: Acute Brief Hospital Course Allergies Allergies Coded Allergies Type Severity Reaction Last Updated Verified No Known Drug Allergies 12/18/13 No Vital Signs Vital Signs Date Time Temp Pulse Resp B/P (MAP) Pulse Ox O2 Delivery O2 Flow Rate FiO2 02/17/20 10:57 0 0 0/0 (0) Room Air 02/17/20 10:00 90 02/17/20 08:00 99.5 99.5 Lab Results Laboratory Tests Test 02/15/20 18:00 02/15/20 18:03 02/16/20 00:07 02/16/20 05:37 Heparin Anti-Xa Act, Unfractionated 0.37 IU/mL (0.30-0.70) Glucose (Fingerstick) 120 mg/dL (70-99) 189 mg/dL (70-99) 216 mg/dL (70-99) Test 02/16/20 06:00 02/16/20 08:30 02/16/20 08:52 02/16/20 11:57 Heparin Anti-Xa Act, Unfractionated 0.61 IU/mL (0.30-0.70) O2 Saturation 78 % (92-99) Arterial Blood pH 7.20 (7.35-7.45) Arterial Blood pCO2 at Patient Temp 40 mmHg (35-46) Arterial Blood pO2 at Patient Temp 50 mmHg (75-108) Arterial Blood HCO3 15 mmol/L (21-28) Arterial Blood Base Excess -12 mmol/L (-3-3) FiO2 100% + 20 peep Glucose (Fingerstick) 221 mg/dL (70-99) 245 mg/dL (70-99) Test 02/16/20 16:00 02/16/20 18:08 O2 Saturation 83 % (92-99) Arterial Blood pH 7.19 (7.35-7.45) Arterial Blood pH (Temp corrected) 7.23 Arterial Blood pCO2 at Patient Temp 43 mmHg (35-46) Arterial Blood pCO2 (Temp correct) 38 mmHg Arterial Blood pO2 at Patient Temp 55 mmHg (75-108) Arterial Blood pO2 (Temp corrected) 46 mmHg Arterial Blood HCO3 16 mmol/L (21-28) Arterial Blood Base Excess -12 mmol/L (-3-3) FiO2 100% + 20 peep Glucose (Fingerstick) 241 mg/dL (70-99) Laboratory Tests Test 02/16/20 16:00 02/16/20 18:08 O2 Saturation 83 % (92-99) Arterial Blood pH 7.19 (7.35-7.45) Arterial Blood pH (Temp corrected) 7.23 Arterial Blood pCO2 at Patient Temp 43 mmHg (35-46) Arterial Blood pCO2 (Temp correct) 38 mmHg Arterial Blood pO2 at Patient Temp 55 mmHg (75-108) Arterial Blood pO2 (Temp corrected) 46 mmHg Arterial Blood HCO3 16 mmol/L (21-28) Arterial Blood Base Excess -12 mmol/L (-3-3) FiO2 100% + 20 peep Glucose (Fingerstick) 241 mg/dL (70-99) Brief Hospital Course Mr. Lynne is a 49 old from [facility]. He has history of diabetes, hypert ension, CVA and peripheral neuropathy and coronary artery disease. He was brought to the hospital after he was noted to be obtunded. He was intubated in the ER and sedated. His arterial blood gases reveal a pH of 7.01, pCO2 of 37 and a pO2 of 118 with a bicarbonate of 9 also in DKA< blood sugar 650 He came back COVID positive. 2 weeks on vent without much imrpovement, on 100% with 10 + PEEP wihtout improvement tube withdrawn and he on in the AM Discharge Information Condition at Discharge: / Scheduled Amlodipine Besylate (Amlodipine Besylate) 10 Mg Tablet, 10 MG PO HS, (Reported) Entered as Reported by: ИВАН MADRID on 08/22/13 0725 Last Action: Continued on 02/02/201622 by JADEN PEÑALOZA MD Aspirin (Aspirin) 325 Mg Tablet, 325 MG PO DAILY for cva, #60 Prescribed by: AMBER MENDEZ on 03/20/19 0835 Last Action: Continued on 02/02/201622 by JADEN PEÑALOZA MD Atorvastatin Calcium (Atorvastatin Calcium) 20 Mg Tablet, 1 TAB PO DAILY, #30 Ref 5 (Reported) Entered as Reported by: MARION BAER on 01/11/15 1427 Last Action: Continued on 02/02/201622 by JADEN PEÑALOZA MD Hydrochlorothiazide (Hydrochlorothiazide Tablet) 12.5 Mg Tablet, 25 MG PO DAILY for DIURETIC, Ref 0 (Reported) Entered as Reported by: MAYNOR FREED on 01/15/15 1245 Last Action: Converted on 02/02/201622 by JADEN PEÑALOZA MD Hydrochlorothiazide (Hydrochlorothiazide Tablet ) 25 Mg Tablet, 25 MG PO DAILY for DIURETIC, Ref 0 (Reported) Entered as Reported by: JESSEE GONSALVES on 07/15/192306 Last Action: Continued on 02/02/201622 by JADEN PEÑALOZA MD Insulin Aspart (Novolog) 100 Unit/1 Ml Cartridge, 25 UNIT SQ TIDWMEALS for diabetes, (Reported) Entered as Reported by: JESSEE GONSALVES on 03/18/192122 Last Action: Converted on 02/02/201622 by JADEN PEÑALOZA MD Insulin Glargine,Hum.rec.anlog (Lantus Solostar) 100 Unit/1 Ml Insuln.pen, 80 UNIT SQ QHS for diabetes, #15 Ref 3 (Reported) Entered as Reported by: JESSEE GONSALVES on 03/18/192122 Last Action: Converted on 02/02/201622 by JADEN PEÑALOZA MD Isosorbide Dinitrate (Isosorbide Dinitrate) 30 Mg Tablet, 20 MG PO DAILY for bp, (Reported) Entered as Reported by: JESSEE GONSALVES on 07/15/19 230 Last Action: Converted on 02/02/201621 by JADEN PEÑALOZA MD Isosorbide Mononitrate (Isosorbide Mononitrate) 20 Mg Tablet, 20 MG PO BID for heart, (Reported) Entered as Reported by: ИВАН MADRID on 08/22/13 0725 Last Action: Continued on 02/02/201622 by JADEN PEÑALOZA MD Lisinopril (Lisinopril) 40 Mg Tablet, 1 TAB PO DAILY for blood pressure, #30 Ref 5 (Reported) Entered as Reported by: JESSEE GONSALVES on 03/18/192122 Last Action: Continued on 02/02/201621 by JADEN PEÑALOZA MD Metformin Hcl (Metformin Hcl) 1,000 Mg Tablet, 1,000 MG PO BIDWMEALS for diabetes, (Reported) Entered as Reported by: JESSEE GONSALVES on 03/18/192122 Last Action: Converted on 02/02/201622 by JADEN PEÑALOZA MD Metoprolol Tartrate (Metoprolol Tartrate) 50 Mg Tablet, 1 TAB PO BID for blood pressure, #60 Ref 5 (Reported) Entered as Reported by: JESSEE GONSALVES on 03/18/192122 Last Action: Continued on 02/02/201622 by JADEN PEÑALOZA MD Olopatadine Hcl (Patanol) 5 Ml Drops, 1 DROP EACHEYE BID, #5 Ref 1 (Reported) Entered as Reported by: MRAION BAER on 01/11/15 1427 Last Action: Converted on 02/02/201621 by JADEN PEÑALOZA MD Omeprazole (Omeprazole) 20 Mg Capsule.dr, 20 MG PO BID for indigestion, (Reported) Entered as Reported by: JESSEE GONSALVES on 03/18/192122 Last Action: Converted on 02/02/201622 by JADEN PEÑALOZA MD Ondansetron Hcl (Zofran) 4 Mg Tablet, 1 TAB PO Q6HRS for nausea, #20 (Reported) Entered as Reported by: JESSEE GONSALVES on 03/18/192122 Last Action: Converted on 02/02/201622 by JADEN PEÑALOZA MD Terazosin Hcl (Terazosin Hcl) 2 Mg Capsule, 2 CAP PO QHS for blood pressure, #90 Ref 1 (Reported) Entered as Reported by: JESSEE GONSALVES on 03/18/192122 Last Action: Converted on 02/02/201622 by JADEN PEÑALOZA MD Venlafaxine Hcl (Venlafaxine Hcl Er) 150 Mg Tab.er.24, 1 TAB PO BID for depression, #30 Ref 1 (Reported) Entered as Reported by: JESSEE GONSALVES on 03/18/192122 Last Action: Converted on 02/02/201622 by JADEN PEÑALOZA MD Scheduled PRN Butalb/Acetaminophen/Caffeine (Mtuekv-Qrluykqi-Yacs 50-325-40) 1 Each Tablet, 1- 2 TAB PO PRN Q4HRS PRN for PAIN MDD 6 tablets for 2 Days, #12 Ref 0 Prescribed by: GABRIELA JOHNSTON APRN on 07/30/18 1640 Butalb/Acetaminophen/Caffeine (Fkawbv-Dzyimlyy-Tcta 50-325-40) 1 Each Tablet, 1 EACH PO Q6HRS PRN for HEADACHE, #14 Prescribed by: ORTEGA ALEXANDRE D.O. on 01/31/192241 Last Action: Continued on 02/02/201622 by JADEN PEÑALOZA MD Meclizine Hcl (Meclizine Hcl) 25 Mg Tablet, 25 MG PO PRN TID PRN for NAUSEA for 90 Days, Ref 3 (Reported) Entered as Reported by: MAYNOR FREED on 01/15/15 1245 Last Action: Converted on 02/02/201622 by JADEN PEÑALOZA MD Ondansetron (Ondansetron Odt) 4 Mg Tab.rapdis, 1 TAB PO PRN Q6-8HRS PRN for NAUSEA, #16 Prescribed by: ORTEGA ALEXANDRE D.O. on 01/31/192241 Sumatriptan Succinate (Imitrex) 50 Mg Tablet, 50 MG PO PRN BID PRN for MIGRAINE HEADACHE, (Reported) Entered as Reported by: MAYNOR FREED on 01/15/15 1307 Last Action: Converted on 02/02/201622 by JADEN PEÑALOZA MD Patient Instructions Patient Instructions > 30 min, pronounced, will do cert family to prepare amish burial, COVID precautions Justicifation of Admission Dx: Justifications for Admission: Justification of Admission Dx: Yes Sepsis: Altered Mental Status MASHA CASILLAS MD Feb 17, 2020 14:18
--- NOTE | 2020-02-17 14:30 | NUR ---
Patient was taken to the [facility] at this time. Family walked with nursing staff to [facility]. Once patient was handed over to security family left. All arrangements with home has been made at this time. Family told that they will receive a call soon from the home. Addendum: 02/17/20 at 1459 by JOHN TORRES RN Patient was cleaned prior to placing in body bag per family. This RN, son Zoran, and Sunita cleaned him with soap and wipes. The family cleaned him with what appeared to be oils which they asked to do in private. Patients central lines were removed per family request. The right radial arterial line was not bleeding upon removal of line. The right IJ CL did however bleed and prior to removal this was explained to the family but they asked to continue taking it out anyways. Pressure was applied and many gauze 4x4's were placed at the insertion site. Patient was then bagged up in two seperate bags per COVID guidelines.
== END 2020-02-17 14:40 | disposition expired | DRG 870 ==
LOC: ER 15:33 → 1 WEST ICU 16:45
PROVIDERS: ADMIT Internal Medicine; ATTEND Internal Medicine
PROC: 5A1955Z Respiratory Ventilation, Greater than 96 Consecutive Hours (ICD-10-PCS; principal; 2020-02-02)
PROC: 0BH17EZ Insertion of Endotracheal Airway into Trachea, Via Natural or Artificial Opening (ICD-10-PCS; 2020-02-02)
PROC: 02HV33Z Insertion of Infusion Device into Superior Vena Cava, Percutaneous Approach (ICD-10-PCS; 2020-02-02)
PROC: B548ZZA Ultrasonography of Superior Vena Cava, Guidance (ICD-10-PCS; 2020-02-02)
DX: A41.89 Other specified sepsis (principal); U07.1 COVID-19; E11.10 Type 2 diabetes mellitus with ketoacidosis without coma; G92 Toxic encephalopathy; J12.89 Other viral pneumonia; J96.01 Acute respiratory failure with hypoxia; J15.6 Pneumonia due to other Gram-negative bacteria; E87.0 Hyperosmolality and hypernatremia; N17.9 Acute kidney failure, unspecified; E11.42 Type 2 diabetes mellitus with diabetic polyneuropathy; E86.0 Dehydration; E78.5 Hyperlipidemia, unspecified; E87.6 Hypokalemia; F32.9 Major depressive disorder, single episode, unspecified; G43.909 Migraine, unspecified, not intractable, without status migrainosus; G83.9 Paralytic syndrome, unspecified; I11.0 Hypertensive heart disease with heart failure; I16.0 Hypertensive urgency; I25.10 Atherosclerotic heart disease of native coronary artery without angina pectoris; I50.9 Heart failure, unspecified; M79.7 Fibromyalgia; R57.0 Cardiogenic shock; R65.20 Severe sepsis without septic shock; Z79.4 Long term (current) use of insulin; Z79.82 Long term (current) use of aspirin; Z79.899 Other long term (current) drug therapy; Z86.73 Personal history of transient ischemic attack (TIA), and cerebral infarction without residual deficits; G62.9 Polyneuropathy, unspecified; K21.9 Gastro-esophageal reflux disease without esophagitis
CPT/HCPCS: 31500; 36415; 36600; 70450; 71045; 80048; 80053; 80307; 80329; 81001; 82040; 82140; 82310; 82542; 82553; 82728; 82805; 82962; 83605; 83615; 83735; 83880; 83930; 83935; 84100; 84443; 84484; 85007; 85025; 85027; 85379; 85520; 85610; 85730; 86850; 86900; 86901; 86927; 87040; 87086; 93005; 94002; 94003; 96361; 96365; 96367; 96372; 96375; 99291; C9113; G0480; J0360; J0456; J1100; J1644; J1650; J1815; J1940; J2060; J2250; J2370; J2543; J2704; J2920; J3010; J3262; J3480; J3490; J7030; J7040; J7042; J7050; J7060; P9041; P9046; G0378; P9017; U0003-CS